=== PATIENT | male | born 1950 | race Caucasian/White ===

== ENCOUNTER 2017-03-16 15:58 | Inpatient (IN) | payer BC, MEDICARE ==
[~2017-03-16 15:58] MED LIST: DEXTROSE 50%-WATER 50 ML SYRINGE IVP ONE; EPINEPHrine 10 ML SYRINGE (0.1 MG/ML) ONE; NOREPINEPHRINE 4 MG-0.9% NS PMX 250 ML IV ONE; SODIUM BICARB 8.4% 50 ML SYR (1 MEQ/ML) ONE
[2017-03-16] MEDS ORDERED: SODIUM CHLORIDE 0.9% 500 ML IV STA (16:14)
[2017-03-16 16:23] LABS: Glucose,Whole Blood 397 mg/dL (75-99)
[2017-03-16] MEDS ORDERED: SODIUM CHLORIDE 0.9% 1,000 ML IV ONE ×2 (16:23→20:14)
[2017-03-16 16:46] LABS: VBG PH 7.25 (7.31-7.41)
[2017-03-16 16:52] LABS: Basophils % (A) 0 %; CH 29.9; CHCM 32.4; Eosinophils % (A) 0 %; HDW 2.53; HGB 13.8 gm/dL (13.0-17.5); Immature Gran Flag Marked; Luc # (Auto) 0.13; Luc % (Auto) 2; Lymphocytes # (A) 0.6 k/uL (1.0-4.8); Lymphocytes % (A) 8 %; MCH 29.1 pg (25.0-35.0); MCHC 31.4 g/dL (31.0-37.0); MCV 92.7 fL (80.0-100.0); Monocytes # (A) 0.4 k/uL (0-1.0); Monocytes % (A) 6 %; Neutrophils # (A) 6.4 k/uL (1.3-7.7); Neutrophils % (A) 85 %; RBC 4.74 m/uL (4.30-5.90); RDW 14.6 % (11.5-15.5); WBC 7.5 k/uL (3.8-10.6); WBC (Perox) 7.59
[2017-03-16 16:55] LABS: Prothrombin Time 10.4 sec (9.0-12.0)
[2017-03-16 16:56] LABS: Calcium 9.2 mg/dL (8.4-10.2); Magnesium 1.8 mg/dL (1.6-2.3); Potassium 5.4 mmol/L (3.5-5.1); Total Bilirubin 0.7 mg/dL (0.2-1.3); Total Protein 5.5 g/dL (6.3-8.2)
[2017-03-16 17:12] LABS: Partial Thromboplastin Time 22.1 sec (22.0-30.0)
[2017-03-16 17:14] LABS: Manual Review Performed
[2017-03-16 17:15] LABS: RBC Morphology Normal; Toxic Granulation Present
[2017-03-16 17:39] LABS: Creatine Kinase MB 2.9 ng/mL (0.0-2.4); Troponin I 0.59 ng/mL (0.000-0.034)
[2017-03-16] MEDS ORDERED: SODIUM CHLORIDE 0.9% 2,000 ML IV ONE (17:42)
--- NOTE | 2017-03-16 17:44 | XR ---
EXAMINATION TYPE: XR abdomen complete w decub DATE OF EXAM: 03/16/2017 COMPARISON: 10/26/2011 HISTORY: Abdominal pain TECHNIQUE: Supine, upright, and left side down lateral decubitus views of the abdomen are obtained. FINDINGS: There is evidence of a moderate sized pneumoperitoneum. I see no sign of bowel obstruction. There are no pathologic calcic indications over the kidneys. There is linear infiltrate and atelectasis at the left lung base. IMPRESSION: There is very likely a pneumoperitoneum. This exam was discussed with the emergency room doctor at 5: 45 PM.
--- NOTE | 2017-03-16 17:46 | XR ---
EXAMINATION TYPE: XR chest 2V DATE OF EXAM: 03/16/2017 COMPARISON: 06/03/2016 HISTORY: Weakness TECHNIQUE: Frontal and lateral views of the chest are obtained. FINDINGS: There appears to be a large amount of air under the right hemidiaphragm. There is linear d ensity at the left lung base. There is no heart failure. IMPRESSION: Pneumoperitoneum. Left basilar atelectasis. No heart failure seen. There is clearing of pleural fluid and infiltrate in the right lower lobe compared to old exam.
--- NOTE | 2017-03-16 18:58 | CT ---
EXAMINATION TYPE: CT abdomen pelvis wo con DATE OF EXAM: 03/16/2017 COMPARISON: NONE HISTORY: Abdominal pain. CT DLP: 680.0 mGycm Automated exposure control for dose reduction was used. TECHNIQUE: Helical acquisition of images was performed from the lung bases through the pelvis. FINDINGS: There is patchy atelectasis at the lung bases. There is small bilateral pleural effusion. There is free air in the anterior upper abdomen. There is fluid level with ascites fluid in the abdom en. There is fluid seen around the spleen and in the paracolic gutters. Liver shows no focal defect. There is no sign of a pancreatic mass. Gallbladder appears to have a mar kedly thickened wall consistent with edema. There is no adrenal mass. There is a 2 cm calculus at the right renal pelvis. There is no hydronephro sis. There is no sign of a bowel obstruction. Bladder distends smoothly. There is no retroperitoneal adeno robert. I see no bony destructive process. IMPRESSION: THERE IS A LARGE PNEUMOPERITONEUM AND ALSO A LARGE AMOUNT OF ASCITES FLUID IN THE ABDOMEN. SOURCE OF THE AIR IS NOT CLEAR. LARGE NONOBSTRUCTING RIGHT RENAL CALCULUS. POSSIBLE MARKEDLY THICKENED GALLBLADDER WALL THAT RAISES THE POSSIBILITY OF A GANGRENOUS GALLBLADDER.
[2017-03-16] MEDS ORDERED: PIPERACILLIN-TAZOBACTAM 3.375 GM in DEXTROSE/WATER 1 50ML.BAG IVPB STA (18:59)
[2017-03-16] MEDS ORDERED: 0.9% NACL WITH KCL 20 MEQ/L 1,000 ML IV SCH ×2 (19:00→19:15)
[2017-03-16] MEDS ORDERED: INSULIN REGULAR 100 UNIT/ML VIAL IV ONE (19:12)
[2017-03-16 19:22] LABS: Amorphous Sediment,Urine Occasional /hpf; Appearance,Urine Cloudy (Clear); Bilirubin,Urine Negative (Negative); Glucose,Urine (UA) 1+ (Negative); Ketones,Urine Negative (Negative); Leukocyte Esterase,Urine Negative (Negative); Nitrite,Urine Negative (Negative); Particle Count 25348; Protein,Urine 1+ (Negative); RBC,Urine 15 /hpf (0-5); Specific Gravity,Urine 1.017 (1.001-1.035); UA Billing (MACRO vs. MICRO) MICRO; Urobilinogen,Urine <2.0 mg/dL (<2.0); WBC,Urine 4 /hpf (0-5)
--- NOTE | 2017-03-16 19:24 | ED ---
General Adult HPI - General Chief complaint: Weakness Stated complaint: weakness/abdominal pain Time Seen by Provider: 03/16/17 16:12 Source: patient, family, RN notes reviewed Mode of arrival: wheelchair Limitations: no limitations - History of Present Illness Initial comments: 66-year-old male presents with chief complaint of generalized weakness abdominal pain. Patient has been taking stool softeners without relief. Patient has history diabetes. He states he has had abdominal pain for approximately the past week. He's been constipated with last normal bowel movement was this morning. Patient describes it is soft. No history of diarrhea. No history nausea vomiting or diarrhea. Patient denies fever or chills. Denies chest pain or shortness of breath. - Related Data Home Medications Medication Instructions Recorded Confirmed Ferrous Sulfate [Iron (65 MG 325 mg PO QAM 05/13/16 03/16/17 Elemental)] Lactobacillus Acidophilus 1 tab PO BID 05/19/16 03/16/17 [Acidophilus] Omeprazole 20 mg PO DAILY 05/29/16 03/16/17 Furosemide [Lasix] 20 mg PO DAILY@1200 07/29/16 03/16/17 Furosemide [Lasix] 40 mg PO DAILY@0600 07/29/16 03/16/17 Carvedilol [Coreg] 6.25 mg PO BID@0900,1700 03/16/17 03/16/17 Eviredge 150 mg PO HS 03/16/17 03/16/17 HYDROcodone/APAP 5-325MG [[place] 1 tab PO Q6H PRN 03/16/17 03/16/17 5-325] Insulin Aspart [NovoLOG Flexpen] 6 units SQ AC-TID 03/16/17 03/16/17 Insulin Glargine,Hum.rec.anlog 8 unit SQ HS 03/16/17 03/16/17 [Basaglar Kwikpen U-100] hydrALAZINE HCL [Apresoline] 25 mg PO TID@0900,1300,1700 03/16/17 03/16/17 Previous Rx's Medication Instructions Recorded Aspirin EC [Ecotrin Low Dose] 81 mg PO DAILY #1 tablet. 05/20/16 Folic Acid 1 mg PO DAILY #1 tablet 05/20/16 Multivitamins, Thera [Multivitamin 1 tab PO DAILY #1 tablet 05/20/16 (formulary)] Thiamine [Vitamin B-1] 100 mg PO DAILY #1 tablet 05/20/16 ALPRAZolam [Xanax] 0.25 mg PO Q8H PRN #20 tab 06/03/16 Isosorbide Mononitrate ER [Imdur] 30 mg PO DAILY tab.er.24h 06/03/16 Allergies Allergy/AdvReac Type Severity Reaction Status Date / Time No Known Allergies Allergy Verified 03/16/17 17:03 Review of Systems ROS Statement: Those systems with pertinent positive or pertinent negative responses have been documented in the HPI. ROS Other: All systems not noted in ROS Statement are negative. Past Medical History Past Medical History: Diabetes Mellitus, Eye Disorder Additional Past Medical History / Comment(s): Congestion heart failure suspected , diabetes mellitus, severe peripheral vascular disease with gangrenous right lower extremity status post below-knee amputation on the right and left toe amputation involving the third fourth and fifth toe, obesity, diabetic peripheral neuropathy, diabetic retinopathy with history of a Detached retina, diabetic nephropathy with stage II chronic kidney disease, diabetic peripheral neuropathy, GERD reflux, chronic anemia History of Any Multi-Drug Resistant Organisms: MRSA, VRE Date of last positivie culture/infection: 07/22/16 MDRO Source:: RIGHT LEG Additional Past Surgical History / Comment(s): Left toe amputation 3, 4, 5, retinal surgery. Right foot amputation Past Anesthesia/Blood Transfusion Reactions: No Reported Reaction Past Psychological History: No Psychological Hx Reported Smoking Status: Never smoker Past Alcohol Use History: None Reported Past Drug Use History: None Reported - Past Family History Mother Family Medical History: Diabetes Mellitus Father Family Medical History: Congestive Heart Failure (CHF) Brother(s) Family Medical History: No Reported History General Exam Limitations: no limitations General appearance: alert, lethargic, in distress Head exam: Present: atraumatic, normocephalic Eye exam: Present: normal appearance. Absent: scleral icterus, conjunctival injection ENT exam: Present: mucous membranes dry Neck exam: Present: normal inspection. Absent: tenderness, meningismus Respiratory exam: Present: normal lung sounds bilaterally. Absent: respiratory distress Cardiovascular Exam: Present: normal rhythm, tachycardia GI/Abdominal exam: Present: distended, tenderness, guarding, diminished bowel sounds. Absent: rigid Extremities exam: Present: other (Right BKA). Absent: normal capillary refill, pedal edema Neurological exam: Present: alert. Absent: motor sensory deficit Psychiatric exam: Present: normal affect, normal mood Skin exam: Present: diaphoretic. Absent: warm Course Vital Signs 03/16/17 03/16/17 03/16/17 16:05 16:43 16:46 Temperature 97.4 F L 97.8 F Pulse Rate 128 H 120 H Pulse Rate [ 120 H Apical] Respiratory 20 38 H Rate Blood Pressure 82/53 95/63 O2 Sat by Pulse 96 97 Oximetry 03/16/17 03/16/17 03/16/17 17:27 18:21 19:11 Temperature 97.4 F L 97.8 F Pulse Rate 118 H 114 H 112 H Pulse Rate [ Apical] Respiratory 36 H 28 H 28 H Rate Blood Pressure 116/62 140/72 134/66 O2 Sat by Pulse 98 100 98 Oximetry - Reevaluation(s) Reevaluation #1: 03/16/17 19:19 Patient's blood pressure response to IV hydration. Patient does not request pain medication, abdomen is only painful with palpation EKG Findings - EKG Comments: EKG Findings:: EKG shows sinus tachycardia with a ventricular rate of 123, FL interval 152, QRS duration 96, QTC 458, no signs of acute ischemia Medical Decision Making - Medical Decision Making 66-year-old male presented with generalized weakness, and abdominal pain. Patient had a normal bowel movement this morning. On examination patient is tachycardic, hypotensive, tach. Lungs are clear to auscultation. Patient does have generalized abdominal tenderness to palpation with guarding. Abdomen is not rigid. Initial blood sugar is elevated. Patient is started on IV hydration , laboratory studies do reveal significant abnormalities including lactic acidosis 5.5, elevated blood sugar, CO2 of 9 representing severe acidosis, acute kidney injury with a creatinine of 5.9, unknown baseline. Chest x-ray shows no acute findings, abdominal x-ray is suggestive of intraperitoneal free air, however the radiologist's requests either upright chest or CT to confirm. Noncontrast CT is obtained and is significant for a large amount of intraperitoneal air and free fluid. Case is discussed with general surgery both after initial x-ray and CAT scan. Patient is started on IV antibiotics, continued on IV hydration, given IV insulin for his hyperglycemia and hyperkalemia. Patient is informed of these results along with his family. Patient will be taken to the operating room emergently for exploration. Diagnosis: Intraperitoneal free air, lactic acidosis, metabolic acidosis, DKA. - Lab Data Result diagrams: 03/16/17 16:30 03/16/17 16:30 Lab Results 03/16/17 03/16/17 03/16/17 Range/Units 16:19 16:30 16:30 WBC 7.5 (3.8-10.6) k/uL RBC 4.74 (4.30-5.90) m/uL Hgb 13.8 (13.0-17.5) gm/dL Hct 44.0 (39.0-53.0) % MCV 92.7 (80.0-100.0) fL MCH 29.1 (25.0-35.0) pg MCHC 31.4 (31.0-37.0) g/dL RDW 14.6 (11.5-15.5) % Plt Count 238 (150-450) k/uL Neutrophils % 85 % Lymphocytes % 8 % Monocytes % 6 % Eosinophils % 0 % Basophils % 0 % Neutrophils # 6.4 (1.3-7.7) k/uL Lymphocytes # 0.6 L (1.0-4.8) k/uL Monocytes # 0.4 (0-1.0) k/uL Eosinophils # 0.0 (0-0.7) k/uL Basophils # 0.0 (0-0.2) k/uL Manual Slide Review Performed Toxic Granulation Present RBC Morphology Normal PT (9.0-12.0) sec INR (<1.2) APTT (22.0-30.0) sec VBG pH (7.31-7.41) VBG pCO2 (37-51) mmHg VBG HCO3 (24-28) mmol/L Sodium (137-145) mmol/L Potassium (3.5-5.1) mmol/L Chloride (98-107) mmol/L Carbon Dioxide (22-30) mmol/L Anion Gap mmol/L BUN (9-20) mg/dL Creatinine (0.66-1.25) mg/dL Est GFR (MDRD) Af Amer (>60 ml/min/1.73 sqM) Est GFR (MDRD) Non-Af (>60 ml/min/1.73 sqM) Glucose (74-99) mg/dL POC Glucose (mg/dL) 397 H (75-99) mg/dL POC Glu Production Team Leader ID Amy Ramirez Plasma Lactic Acid Mario (0.7-2.0) mmol/L Calcium (8.4-10.2) mg/dL Magnesium (1.6-2.3) mg/dL Total Bilirubin (0.2-1.3) mg/dL AST (17-59) U/L ALT (21-72) U/L Alkaline Phosphatase (38-126) U/L Total Creatine Kinase 216 H (55-170) U/L CK-MB (CK-2) 2.9 H* (0.0-2.4) ng/mL CK-MB (CK-2) Rel Index 1.3 Troponin I 0.590 H* (0.000-0.034) ng/mL Total Protein (6.3-8.2) g/dL Albumin (3.5-5.0) g/dL TSH (0.465-4.680) mIU/L Blood Type Blood Type Recheck Antibody Screen Spec Expiration Date 03/16/17 03/16/17 03/16/17 Range/Units 16:30 16:30 16:30 WBC (3.8-10.6) k/uL RBC (4.30-5.90) m/uL Hgb (13.0-17.5) gm/dL Hct (39.0-53.0) % MCV (80.0-100.0) fL MCH (25.0-35.0) pg MCHC (31.0-37.0) g/dL RDW (11.5-15.5) % Plt Count (150-450) k/uL Neutrophils % % Lymphocytes % % Monocytes % % Eosinophils % % Basophils % % Neutrophils # (1.3-7.7) k/uL Lymphocytes # (1.0-4.8) k/uL Monocytes # (0-1.0) k/uL Eosinophils # (0-0.7) k/uL Basophils # (0-0.2) k/uL Manual Slide Review Toxic Granulation RBC Morphology PT 10.4 (9.0-12.0) sec INR 1.0 (<1.2) APTT 22.1 (22.0-30.0) sec VBG pH (7.31-7.41) VBG pCO2 (37-51) mmHg VBG HCO3 (24-28) mmol/L Sodium 132 L (137-145) mmol/L Potassium 5.4 H (3.5-5.1) mmol/L Chloride 101 (98-107) mmol/L Carbon Dioxide 9 L* (22-30) mmol/L Anion Gap 22 mmol/L BUN 108 H* (9-20) mg/dL Creatinine 5.90 H* (0.66-1.25) mg/dL Est GFR (MDRD) Af Amer 12 (>60 ml/min/1.73 sqM) Est GFR (MDRD) Non-Af 10 (>60 ml/min/1.73 sqM) Glucose 496 H* (74-99) mg/dL POC Glucose (mg/dL) (75-99) mg/dL POC Glu Production Team Leader ID Plasma Lactic Acid Mario 5.4 H* (0.7-2.0) mmol/L Calcium 9.2 (8.4-10.2) mg/dL Magnesium 1.8 (1.6-2.3) mg/dL Total Bilirubin 0.7 (0.2-1.3) mg/dL AST 25 (17-59) U/L ALT 33 (21-72) U/L Alkaline Phosphatase 54 (38-126) U/L Total Creatine Kinase (55-170) U/L CK-MB (CK-2) (0.0-2.4) ng/mL CK-MB (CK-2) Rel Index Troponin I (0.000-0.034) ng/mL Total Protein 5.5 L (6.3-8.2) g/dL Albumin 2.9 L (3.5-5.0) g/dL TSH 0.672 (0.465-4.680) mIU/L Blood Type Blood Type Recheck Antibody Screen Spec Expiration Date 03/16/17 03/16/17 Range/Units 16:30 16:30 WBC (3.8-10.6) k/uL RBC (4.30-5.90) m/uL Hgb (13.0-17.5) gm/dL Hct (39.0-53.0) % MCV (80.0-100.0) fL MCH (25.0-35.0) pg MCHC (31.0-37.0) g/dL RDW (11.5-15.5) % Plt Count (150-450) k/uL Neutrophils % % Lymphocytes % % Monocytes % % Eosinophils % % Basophils % % Neutrophils # (1.3-7.7) k/uL Lymphocytes # (1.0-4.8) k/uL Monocytes # (0-1.0) k/uL Eosinophils # (0-0.7) k/uL Basophils # (0-0.2) k/uL Manual Slide Review Toxic Granulation RBC Morphology PT (9.0-12.0) sec INR (<1.2) APTT (22.0-30.0) sec VBG pH 7.25 L (7.31-7.41) VBG pCO2 29 L (37-51) mmHg VBG HCO3 12 L (24-28) mmol/L Sodium (137-145) mmol/L Potassium (3.5-5.1) mmol/L Chloride (98-107) mmol/L Carbon Dioxide (22-30) mmol/L Anion Gap mmol/L BUN (9-20) mg/dL Creatinine (0.66-1.25) mg/dL Est GFR (MDRD) Af Amer (>60 ml/min/1.73 sqM) Est GFR (MDRD) Non-Af (>60 ml/min/1.73 sqM) Glucose (74-99) mg/dL POC Glucose (mg/dL) (75-99) mg/dL POC Glu Production Team Leader ID Plasma Lactic Acid Mario (0.7-2.0) mmol/L Calcium (8.4-10.2) mg/dL Magnesium (1.6-2.3) mg/dL Total Bilirubin (0.2-1.3) mg/dL AST (17-59) U/L ALT (21-72) U/L Alkaline Phosphatase (38-126) U/L Total Creatine Kinase (55-170) U/L CK-MB (CK-2) (0.0-2.4) ng/mL CK-MB (CK-2) Rel Index Troponin I (0.000-0.034) ng/mL Total Protein (6.3-8.2) g/dL Albumin (3.5-5.0) g/dL TSH (0.465-4.680) mIU/L Blood Type A Positive Blood Type Recheck No Antibody Screen NEGATIVE Spec Expiration Date 03/19/2017 - 2329 Critical Care Time Critical Care Time: Yes Total Critical Care Time: 95 Disposition Clinical Impression: Free intraperitoneal air, Dehydration, Acute renal failure, Diabetic ketoacidosis Disposition: ADMITTED IP TO THIS [facility] Condition: Serious Referrals: Marjorie Suero DO [Primary Care Provider] - 1-2 days Decision to Admit Reason: Admit from EC Decision Date: 03/16/17 Decision Time: 18:30
[2017-03-16] MEDS ORDERED: IV FLUID CONTINUATION 1,000 ML IV ONE (19:47)
[2017-03-16] MEDS ORDERED: fentaNYL (PF) 50 MCG/ML 2 ML AMP ONE (19:47)
[2017-03-16] MEDS ORDERED: ETOMIDATE 2 MG/ML 10 ML VIAL ONE (19:47)
[2017-03-16] MEDS ORDERED: PHENYLEPHRINE-0.9% NACL SYG 1 MG/10 ML SYRINGE ONE (19:47)
[2017-03-16] MEDS ORDERED: SODIUM BICARB 8.4% 50 ML SYR (1 MEQ/ML) ONE (19:47)
[2017-03-16] MEDS ORDERED: MIDAZOLAM 2 MG/2 ML VIAL ONE (19:47)
[2017-03-16] MEDS ORDERED: ROCURONIUM BROMIDE 10 MG/ML 10 ML VIAL IV ONE (19:47)
--- NOTE | 2017-03-16 19:51 | P.GSHP ---
History of Present Illness H&P Date: 03/16/17 Chief Complaint: Pneumoperitoneum Patient comes in the hospital with a 3-4 history of vague abdominal pain. The pain has been gradually increasing in severity. The patient's was trying to convince him to come to the hospital but he was refusing up until today. Some nausea but no vomiting. Appetite is diminished. No rectal bleeding or melena. No history of similar events in the past. Pain is vague in location seems to be more centralized. No sick contacts. He has been constipated although did have a bowel movement earlier today. He is taking some medications for a skin cancer and was told that may upset his stomach. No known history of ulcer disease or diverticulitis. No prior upper or lower endoscopy. The patient is diabetic with peripheral vascular disease. He has had right below-knee amputation and left toe amputations. Abdominal x-ray suggested possible pneumoperitoneum and CAT scan confirmed a large volume of free air. The gallbladder appears thickened. The majority of the free air is in the upper abdomen. His white blood cell count is normal. He is acidotic and there is evidence of acute renal failure. Lactic acid is elevated as well. Patient's blood pressure was low on arrival but is improving. - Review of Systems Comment: The patient denies any acute changes in vision or hearing, no dysphagia or odynophagia, no chest pain or shortness of breath, no dysuria or hematuria, no headache, no runny nose, no rectal bleeding or melena, no unexplained weight loss Past Medical History Past Medical History: Diabetes Mellitus, Eye Disorder Additional Past Medical History / Comment(s): Congestion heart failure suspected , diabetes mellitus, severe peripheral vascular disease with gangrenous right lower extremity status post below-knee amputation on the right and left toe amputation involving the third fourth and fifth toe, obesity, diabetic peripheral neuropathy, diabetic retinopathy with history of a Detached retina, diabetic nephropathy with stage II chronic kidney disease, diabetic peripheral neuropathy, GERD reflux, chronic anemia History of Any Multi-Drug Resistant Organisms: MRSA, VRE Date of last positivie culture/infection: 07/22/16 MDRO Source:: RIGHT LEG Additional Past Surgical History / Comment(s): Left toe amputation 3, 4, 5, retinal surgery. Right foot amputation Past Anesthesia/Blood Transfusion Reactions: No Reported Reaction Past Psychological History: No Psychological Hx Reported Smoking Status: Never smoker Past Alcohol Use History: None Reported Past Drug Use History: None Reported - Past Family History Mother Family Medical History: Diabetes Mellitus Father Family Medical History: Congestive Heart Failure (CHF) Brother(s) Family Medical History: No Reported History Medications and Allergies Home Medications Medication Instructions Recorded Confirmed Type Ferrous Sulfate [Iron (65 MG 325 mg PO QAM 05/13/16 03/16/17 History Elemental)] Lactobacillus Acidophilus 1 tab PO BID 05/19/16 03/16/17 History [Acidophilus] Omeprazole 20 mg PO DAILY 05/29/16 03/16/17 History Furosemide [Lasix] 20 mg PO DAILY@1200 07/29/16 03/16/17 History Furosemide [Lasix] 40 mg PO DAILY@0600 07/29/16 03/16/17 History Carvedilol [Coreg] 6.25 mg PO BID@0900,1700 03/16/17 03/16/17 History Eviredge 150 mg PO HS 03/16/17 03/16/17 History HYDROcodone/APAP 5-325MG [[place] 1 tab PO Q6H PRN 03/16/17 03/16/17 History 5-325] Insulin Aspart [NovoLOG Flexpen] 6 units SQ AC-TID 03/16/17 03/16/17 History Insulin Glargine,Hum.rec.anlog 8 unit SQ 03/16/17 03/16/17 History [Basaglar Kwikpen U-100] hydrALAZINE HCL [Apresoline] 25 mg PO TID@0900,1300,1700 03/16/17 03/16/17 History Allergies Allergy/AdvReac Type Severity Reaction Status Date / Time No Known Allergies Allergy Verified 03/16/17 17:03 Surgical - Exam Vital Signs Temp Pulse Resp BP Pulse Ox 97.4 F L 128 H 20 82/53 96 03/16/17 16:05 03/16/17 16:05 03/16/17 16:05 03/16/17 16:05 03/16/17 16:05 Physical exam: General: Well-developed, well-nourished elderly male in no acute distress HEENT: Normocephalic, sclerae nonicteric Abdomen: Mildly distended, diffuse tenderness with peritoneal signs present Extremities: Right lower limb amputation Neuro: Alert and oriented Results - Labs 03/16/17 16:30 03/16/17 16:30 Abnormal Lab Results - Last 24 Hours (Table) 03/16/17 03/16/17 03/16/17 Range/Units 16:19 16:30 16:30 Lymphocytes # 0.6 L (1.0-4.8) k/uL VBG pH (7.31-7.41) VBG pCO2 (37-51) mmHg VBG HCO3 (24-28) mmol/L Sodium (137-145) mmol/L Potassium (3.5-5.1) mmol/L Carbon Dioxide (22-30) mmol/L BUN (9-20) mg/dL Creatinine (0.66-1.25) mg/dL Glucose (74-99) mg/dL POC Glucose (mg/dL) 397 H (75-99) mg/dL Plasma Lactic Acid Mario (0.7-2.0) mmol/L Total Creatine Kinase 216 H (55-170) U/L CK-MB (CK-2) 2.9 H* (0.0-2.4) ng/mL Troponin I 0.590 H* (0.000-0.034) ng/mL Total Protein (6.3-8.2) g/dL Albumin (3.5-5.0) g/dL Urine Protein (Negative) Urine Glucose (UA) (Negative) Urine Blood (Negative) Urine RBC (0-5) /hpf Amorphous Sediment (None) /hpf Hyaline Casts (0-2) /lpf 03/16/17 03/16/17 03/16/17 Range/Units 16:30 16:30 16:30 Lymphocytes # (1.0-4.8) k/uL VBG pH 7.25 L (7.31-7.41) VBG pCO2 29 L (37-51) mmHg VBG HCO3 12 L (24-28) mmol/L Sodium 132 L (137-145) mmol/L Potassium 5.4 H (3.5-5.1) mmol/L Carbon Dioxide 9 L* (22-30) mmol/L BUN 108 H* (9-20) mg/dL Creatinine 5.90 H* (0.66-1.25) mg/dL Glucose 496 H* (74-99) mg/dL POC Glucose (mg/dL) (75-99) mg/dL Plasma Lactic Acid Mario 5.4 H* (0.7-2.0) mmol/L Total Creatine Kinase (55-170) U/L CK-MB (CK-2) (0.0-2.4) ng/mL Troponin I (0.000-0.034) ng/mL Total Protein 5.5 L (6.3-8.2) g/dL Albumin 2.9 L (3.5-5.0) g/dL Urine Protein (Negative) Urine Glucose (UA) (Negative) Urine Blood (Negative) Urine RBC (0-5) /hpf Amorphous Sediment (None) /hpf Hyaline Casts (0-2) /lpf 03/16/17 Range/Units 19:00 Lymphocytes # (1.0-4.8) k/uL VBG pH (7.31-7.41) VBG pCO2 (37-51) mmHg VBG HCO3 (24-28) mmol/L Sodium (137-145) mmol/L Potassium (3.5-5.1) mmol/L Carbon Dioxide (22-30) mmol/L BUN (9-20) mg/dL Creatinine (0.66-1.25) mg/dL Glucose (74-99) mg/dL POC Glucose (mg/dL) (75-99) mg/dL Plasma Lactic Acid Mario (0.7-2.0) mmol/L Total Creatine Kinase (55-170) U/L CK-MB (CK-2) (0.0-2.4) ng/mL Troponin I (0.000-0.034) ng/mL Total Protein (6.3-8.2) g/dL Albumin (3.5-5.0) g/dL Urine Protein 1+ H (Negative) Urine Glucose (UA) 1+ H (Negative) Urine Blood Trace H (Negative) Urine RBC 15 H (0-5) /hpf Amorphous Sediment Occasional H (None) /hpf Hyaline Casts 110 H (0-2) /lpf Diabetes panel 03/16/17 Range/Units 16:30 Sodium 132 L (137-145) mmol/L Potassium 5.4 H (3.5-5.1) mmol/L Chloride 101 (98-107) mmol/L Carbon Dioxide 9 L* (22-30) mmol/L BUN 108 H* (9-20) mg/dL Creatinine 5.90 H* (0.66-1.25) mg/dL Glucose 496 H* (74-99) mg/dL Calcium 9.2 (8.4-10.2) mg/dL AST 25 (17-59) U/L ALT 33 (21-72) U/L Alkaline Phosphatase 54 (38-126) U/L Total Protein 5.5 L (6.3-8.2) g/dL Albumin 2.9 L (3.5-5.0) g/dL Thyroid panel 03/16/17 Range/Units 16:30 TSH 0.672 (0.465-4.680) mIU/L Calcium panel 03/16/17 Range/Units 16:30 Calcium 9.2 (8.4-10.2) mg/dL Albumin 2.9 L (3.5-5.0) g/dL Pituitary panel 03/16/17 Range/Units 16:30 Sodium 132 L (137-145) mmol/L Potassium 5.4 H (3.5-5.1) mmol/L Chloride 101 (98-107) mmol/L Carbon Dioxide 9 L* (22-30) mmol/L BUN 108 H* (9-20) mg/dL Creatinine 5.90 H* (0.66-1.25) mg/dL Glucose 496 H* (74-99) mg/dL Calcium 9.2 (8.4-10.2) mg/dL TSH 0.672 (0.465-4.680) mIU/L Adrenal panel 03/16/17 Range/Units 16:30 Sodium 132 L (137-145) mmol/L Potassium 5.4 H (3.5-5.1) mmol/L Chloride 101 (98-107) mmol/L Carbon Dioxide 9 L* (22-30) mmol/L BUN 108 H* (9-20) mg/dL Creatinine 5.90 H* (0.66-1.25) mg/dL Glucose 496 H* (74-99) mg/dL Calcium 9.2 (8.4-10.2) mg/dL Total Bilirubin 0.7 (0.2-1.3) mg/dL AST 25 (17-59) U/L ALT 33 (21-72) U/L Alkaline Phosphatase 54 (38-126) U/L Total Protein 5.5 L (6.3-8.2) g/dL Albumin 2.9 L (3.5-5.0) g/dL Assessment and Plan (1) Free intraperitoneal air Narrative/Plan: Clinical scenario discussed in detail with the patient and his family. Perforated peptic ulcer is the most likely etiology at this time. Plan to proceed with a exporter laparotomy was discussed. Potential need for bowel resection and/or ostomy was discussed. Additional risks of bleeding, infection , abscess, reperforation, hernia, dehiscence, ostomy placement, respiratory failure, [place], PE, DVT, and were discussed. They understand and wish to proceed. Status: Acute
[2017-03-16] MEDS ORDERED: LACTATED RINGERS 1,000 ML IV ONE ×3 (19:53→22:03)
[2017-03-16] MEDS ORDERED: SODIUM CHLORIDE 0.9% 500 ML IV ONE (21:00)
[2017-03-16 21:26] LABS: ABG Base Excess -13.5 mmol/L; ABG HCO3 13 mmol/L (21-25); ABG Hematocrit 29 % (34.0-46.0); ABG Oxygen Saturation 99.4 % (94-97); ABG PCO2 36 mmHg (35-45); ABG PO2 355 mmHg (83-108)
[2017-03-16 21:27] LABS: ABG PH 7.19 (7.35-7.45)
[2017-03-16] MEDS ORDERED: NALOXONE 0.4 MG/ML 1 ML VIAL IV PRN (22:03)
[2017-03-16] MEDS ORDERED: ACETAMINOPHEN IV (For NPO) 1,000 MG in EMPTY BAG 1 BAG IVPB ONE (22:03)
[2017-03-16] MEDS ORDERED: NOREPINEPHRIN 4 MG-0.9% NS PMX 4 MG/250 ML ML IV SCH (22:10)
--- NOTE | 2017-03-16 22:13 | P.OP ---
Date of Procedure: 03/16/17 Preoperative Diagnosis: Postoperative Diagnosis: Procedure(s) Performed: PREOPERATIVE DIAGNOSIS: Pneumoperitoneum POSTOPERATIVE DIAGNOSIS: Pneumoperitoneum secondary to perforated peptic ulcer with chronic cholecystitis PROCEDURE: Exploratory laparotomy with repair of perforated peptic ulcer with modified Don patch, open cholecystectomy SURGEON: Inez EBL: 50 mL ANESTHESIA: Gen. COMPLICATIONS: None OPERATIVE PROCEDURE: The patient was placed in the operative table in supine position. Preoperative right IJ catheter and right radial art line were placed by anesthesia. The patient already had a Castellanos catheter. Later a nasogastric tube was placed in the positioning was confirmed. The patient abdomen was prepped and draped in the usual sterile fashion. A supraumbilical vertical incision was made. Dissection through the subcutaneous fat and fascia took place using electrocautery. The patient a large volume of purulent fluid scattered throughout the entire abdomen. This had a very foul odor to it. Initially I thought this may be related to a perforated colon. The incision was lengthened slightly inferiorly. No visible colonic perforation was seen. Incision was then lengthened proximally. The patient at that time had a visible perforated ulcer measuring proximally 7-8 mm in diameter in the region of the pylorus. This was oversewn using interrupted 3-0 silk sutures to control spill. What was quite noticeable was a gallbladder that was completely filled with a gigantic gallstone. This measured approximately 10 x 4 cm in size. I decided to remove this gallbladder at this time given the challenges this would present in the future. Careful dissection around the gallbladder took place using a combination of blunt dissection and cautery. The cystic duct node was identified in the adjacent cystic artery was identified and clipped. The gallbladder was then removed from the liver bed using electrocautery. As we approached the infundibulum small vessels were ligated using either 3-0 silk ties or clips. The cystic duct was visualized. The cystic duct was then divided after the placement of a 3-0 silk and a clip on the patient's side. The gallbladder was passed off. A small area of bleeding along the liver bed was controlled using spot cautery. The abdomen was then irrigated with 4 L of saline. No further purulence or bleeding was seen. FloSeal was used over the ulcer closure site. A Don patch then took place by securing a portion of fat around the ulcer closure site. A drain was placed in the right upper quadrant into the gallbladder fossa and beneath the left lobe of the liver. This was sutured to the skin using a 3-0 silk stitch. The midline fascia was then closed using 2 separate #1 PDS sutures. The skin was mostly closed using clips however small gaps were left for Telfa nola. A sterile dressing was applied. DISPOSITION: Stable to recovery room Implants: Indications for Procedure: Operative Findings: Description of Procedure:
[2017-03-16] MEDS ORDERED: PROPOFOL 1,000 MG/100 ML VIAL IV ONE (22:14)
[2017-03-16] MEDS ORDERED: NOREPINEPHRIN 4 MG-0.9% NS PMX 4 MG/250 ML ML IV ONE (22:15)
[2017-03-16] MEDS: PROPOFOL 1,000 MG/100 ML VIAL IV SCH (22:20)
[2017-03-16 23:04] LABS: Glucose,Whole Blood 283 mg/dL (75-99)
[2017-03-16 23:09] LABS: ABG Base Excess -13.8 mmol/L; ABG HCO3 14 mmol/L (21-25); ABG PCO2 41 mmHg (35-45); ABG PH 7.14 (7.35-7.45); ABG PO2 332 mmHg (83-108); ABG TCO2 15 mmol/L (19-24)
[2017-03-16 23:23] LABS: CH 29.7; CHCM 32.1; HDW 2.54; HGB 11.9 gm/dL (13.0-17.5); Immature Gran Flag Marked; MCH 29.2 pg (25.0-35.0); MCHC 31.3 g/dL (31.0-37.0); MCV 93.2 fL (80.0-100.0); Mean Platelet Volume 9.5; RBC 4.08 m/uL (4.30-5.90); RDW 14.8 % (11.5-15.5); WBC (Perox) 8.77
[2017-03-16 23:30] LABS: Calcium 7.7 mg/dL (8.4-10.2); Magnesium 1.6 mg/dL (1.6-2.3); Phosphorous 4.9 mg/dL (2.5-4.5); Potassium 4.8 mmol/L (3.5-5.1); Total Bilirubin 0.5 mg/dL (0.2-1.3); Total Protein 4.1 g/dL (6.3-8.2)
[2017-03-16] MEDS ORDERED: NOREPINEPHRIN 16 MG-0.9%NS PMX 16 MG/250 ML ML IV SCH (23:45)
[2017-03-16 23:49] LABS: Add Differential Manual Differential
[2017-03-16 23:51] LABS: Manual Review Performed; Nucleated Red Blood Cells 0 /100 WBC (0-0); Total Cells Counted 100
[2017-03-16] MEDS ORDERED: IPRATROPIUM-ALBUTEROL 3 ML NEB INHALATION PRN (23:54)
[2017-03-16] MEDS ORDERED: ACETAMINOPHEN IV (For NPO) 1,000 MG in EMPTY BAG 1 BAG IVPB PRN (23:54)
[2017-03-17] MEDS ORDERED: Potassium Replacement Protocol 1 EACH MISC MISCELLANE PRN (00:40)
[2017-03-17] MEDS ORDERED: Magnesium Replacement Protocol 1 EACH MISC MISCELLANE PRN (00:40)
[2017-03-17] MEDS ORDERED: Phosphorus Replacement Protoco 1 EACH MISC MISCELLANE PRN (00:40)
[2017-03-17] MEDS: IPRATROPIUM-ALBUTEROL 3 ML NEB INHALATION SCH ×7 (00:55→23:25)
[2017-03-17] MEDS ORDERED: INSULIN LISPRO (humaLOG) 300 UNIT/3 ML VIAL SQ SCH (01:09)
[2017-03-17] MEDS: MAGNESIUM SULFATE-D5W PMX 1 GM in DEXTROSE/WATER 1 100ML.BAG IVPB SCH ×3 (01:14→23:39)
[2017-03-17] MEDS: metroNIDAZOLE-NS PMX 500 MG in SALINE 1 100ML.BAG IVPB SCH ×4 (01:14→23:41)
[2017-03-17 01:48] LABS: Glucose,Whole Blood 274 mg/dL (75-99)
[2017-03-17] MEDS: HEPARIN SODIUM,PORCINE 5,000 UNIT/ML 1 ML VIAL SQ SCH ×4 (02:33→23:41)
[2017-03-17 04:19] LABS: Glucose,Whole Blood 266 mg/dL (75-99)
[2017-03-17 04:32] LABS: CH 29.7; CHCM 32.6; HDW 2.62; HGB 11.7 gm/dL (13.0-17.5); Immature Gran Flag Marked; MCH 29.1 pg (25.0-35.0); MCHC 31.8 g/dL (31.0-37.0); MCV 91.8 fL (80.0-100.0); Mean Platelet Volume 9.5; RBC 4.03 m/uL (4.30-5.90); RDW 14.8 % (11.5-15.5); WBC 9.2 k/uL (3.8-10.6); WBC (Perox) 10.11
[2017-03-17 04:46] LABS: Calcium 7.6 mg/dL (8.4-10.2); Total Bilirubin 0.6 mg/dL (0.2-1.3)
[2017-03-17] MEDS ORDERED: INSULIN REGULAR BOLUS (FROM DRIP BAG) IV ONE (04:49)
[2017-03-17 04:52] LABS: ABG Base Excess -11.6 mmol/L; ABG HCO3 13 mmol/L (21-25); ABG PCO2 27 mmHg (35-45); ABG PH 7.31 (7.35-7.45); ABG PO2 198 mmHg (83-108); ABG TCO2 14 mmol/L (19-24)
[2017-03-17 04:57] LABS: Total Protein 4.1 g/dL (6.3-8.2)
[2017-03-17 04:58] LABS: Magnesium 2.2 mg/dL (1.6-2.3); Phosphorous 4.2 mg/dL (2.5-4.5)
[2017-03-17] MEDS ORDERED: INSULIN REGULAR 100 UNIT in SODIUM CHLORIDE 0.9% 100 ML IV SCH (05:00)
[2017-03-17 05:06] LABS: Add Differential Manual Differential
[2017-03-17 05:08] LABS: Band Neutrophils % 15.2 %; Manual Review Performed; Nucleated Red Blood Cells 0 /100 WBC (0-0); Total Cells Counted 99
[2017-03-17 05:19] LABS: Glucose,Whole Blood 235 mg/dL (75-99)
[2017-03-17] MEDS: SODIUM CHLORIDE 0.9% 1,000 ML IV SCH ×5 (06:00→23:42)
[2017-03-17 06:10] LABS: Glucose,Whole Blood 217 mg/dL (75-99)
[2017-03-17 07:06] LABS: Glucose,Whole Blood 169 mg/dL (75-99)
[2017-03-17 07:59] LABS: Glucose,Whole Blood 152 mg/dL (75-99)
[2017-03-17] MEDS ORDERED: PIPERACILLIN-TAZOBACTAM 3.375 GM in DEXTROSE/WATER 1 50ML.BAG IVPB SCH (08:00)
--- NOTE | 2017-03-17 08:13 | XR ---
EXAMINATION TYPE: XR chest 1V DATE OF EXAM: 03/17/2017 COMPARISON: 03/16/2017 HISTORY: Weakness TECHNIQUE: Single frontal view of the chest is obtained. FINDINGS: Right internal jugular central venous catheter has been inserted in the interim with its d istal tip terminating in the high right atrium. Endotracheal tube has its distal tip approximately 4. 2 cm from the estela. Enteric tube has also been placed in the interim with the fenestrated portion j ust distal to the gastroesophageal junction. Surgical suture noted within the right upper quadrant. There are low lung volumes accentuating pulmonary vasculature and creating bibasilar subsegmental ate lectasis. Remainder the lungs are clear. Mediastinal silhouette is stable from prior and within jose armando l limits. IMPRESSION: 1. Interval placement of appropriately placed enteric and endotracheal tubes. Right internal jugular central venous catheter has been placed with its distal tip in the high right atrium. 2. Bibasilar subsegmental atelectasis.
[2017-03-17] MEDS: CHLORHEXIDINE GLUCONATE 15 ML CUP MUCOUS MEM SCH ×2 (08:14→21:54)
[2017-03-17] MEDS: NOREPINEPHRIN 16 MG-0.9%NS PMX 16 MG/250 ML ML IV SCH ×2 (08:14→22:20)
[2017-03-17] MEDS: PANTOPRAZOLE 40 MG/10 ML VIAL IV SCH ×2 (08:14→21:54)
[2017-03-17] MEDS: FLUCONAZOLE IN NACL,ISO-OSM 100 MG in SALINE 1 50ML.BAG IVPB SCH (08:15)
[2017-03-17 09:07] LABS: Glucose,Whole Blood 147 mg/dL (75-99)
--- NOTE | 2017-03-17 09:33 | P.CONS ---
History of Present Illness - Reason for Consult Consult date: 03/17/17 Abdominal sepsis - History of Present Illness This is a 66-year-old male that is well-known to ID service for previous history of gangrene and amputation of his toes on the left foot as well as a below the knee amputation on the right. [facility] most recently under the care of Dr. Gordon and discharged in August 2016 after a dehiscence of the right below the knee wound healed. Patient presented to [facility] emergency center on March 16 with generalized weakness and abdominal pain for at least couple days up to 1 week with concerns for constipation and was taking laxatives with no improvement. Patient also had decreased appetite and pain was gradually worsening. There was nausea without vomiting. Chest x-ray showed pneumoperitoneum and left basilar atelectasis with no heart failure. Abdominal films also showed pneumoperitoneum. CAT scan of the abdomen and pelvis without contrast and was found have a large pneumoperitoneum, large ascites, large nonobstructive right renal calculi and possible gallbladder thickening with concern for gangrenous gallbladder. Patient was taken to the OR by Dr. Wiley for exploratory laparotomy with repair of perforated peptic ulcer and open cholecystectomy. Patient was then transferred to the intensive care unit where he remains intubated and on mechanical ventilation. Patient presented with severe sepsis and septic shock status post 7 1/2 liters of fluid currently on levo at 20 mics. He did not have a urine output for the day shift thus far. O2 needs have decreased however. He is currently on IV antimicrobials in the form of fluconazole, Flagyl and Zosyn. Blood cultures status received and urine culture status received. C. difficile toxin was negative. Patient is noted to have a stage II decubitus ulcer on his buttocks that was present on admission. Review of Systems ROS unobtainable: due to endotracheal tube Past Medical History Past Medical History: Cancer, Diabetes Mellitus, Eye Disorder, GERD/Reflux Additional Past Medical History / Comment(s): Congestion heart failure suspected , diabetes mellitus, severe peripheral vascular disease with gangrenous right lower extremity status post below-knee (May 2016) amputation on the right and left toe amputation involving the third fourth and fifth toe (2011), obesity, diabetic peripheral neuropathy, diabetic retinopathy with history of a Detached retina, diabetic nephropathy with stage II chronic kidney disease, diabetic peripheral neuropathy, GERD reflux, chronic anemia History of Any Multi-Drug Resistant Organisms: MRSA, VRE Year Discovered:: 07/22/16 MDRO Source:: RIGHT LEG Past Surgical History: Cholecystectomy Additional Past Surgical History / Comment(s): Left toe amputations 3, 4, 5, retinal surgery. Right BKA; Skin cancer removed: back of neck, upper back, Past Anesthesia/Blood Transfusion Reactions: No Reported Reaction Past Psychological History: No Psychological Hx Reported Smoking Status: Never smoker Past Alcohol Use History: None Reported Additional Past Alcohol Use History / Comment(s): . Past Drug Use History: None Reported - Past Family History Mother Family Medical History: Diabetes Mellitus, Renal Disease Father Family Medical History: Congestive Heart Failure (CHF) Brother(s) Family Medical History: No Reported History Sister(s) Family Medical History: No Reported History Medications and Allergies Home Medications Medication Instructions Recorded Confirmed Type Ferrous Sulfate [Iron (65 MG 325 mg PO QAM 05/13/16 03/16/17 History Elemental)] Lactobacillus Acidophilus 1 tab PO BID 05/19/16 03/16/17 History [Acidophilus] Omeprazole 20 mg PO DAILY 05/29/16 03/17/17 History Furosemide [Lasix] 20 mg PO DAILY@1200 07/29/16 03/17/17 History Furosemide [Lasix] 40 mg PO DAILY@0600 07/29/16 03/17/17 History Carvedilol [Coreg] 6.25 mg PO BID@0900,1700 03/16/17 03/16/17 History Eviredge 150 mg PO HS 03/16/17 03/16/17 History HYDROcodone/APAP 5-325MG [[place] 1 tab PO Q6H PRN 03/16/17 03/16/17 History 5-325] Insulin Aspart [NovoLOG Flexpen] 6 units SQ AC-TID 03/16/17 03/16/17 History Insulin Glargine,Hum.rec.anlog 8 unit SQ 03/16/17 03/16/17 History [Basaglar Kwikpen U-100] hydrALAZINE HCL [Apresoline] 25 mg PO TID@0900,1300,1700 03/16/17 03/16/17 History Allergies Allergy/AdvReac Type Severity Reaction Status Date / Time No Known Allergies Allergy Verified 03/16/17 17:03 Physical Exam Vitals: Vital Signs Temp Pulse Pulse Resp BP Pulse Ox 03/17/17 08:06 120 H 03/17/17 07:58 120 H 03/17/17 07:00 121 H 30 H 99 03/17/17 06:30 120 H 29 H 99 03/17/17 06:00 118 H 29 H 99 03/17/17 05:30 119 H 15 99 03/17/17 05:00 116 H 32 H 99 03/17/17 04:30 112 H 30 H 99 03/17/17 04:00 98 F 110 H 29 H 99 03/17/17 03:50 112 H 29 H 98 03/17/17 03:40 117 H 30 H 99 03/17/17 03:30 109 H 28 H 100 03/17/17 03:20 107 H 28 H 100 03/17/17 03:10 101 H 26 H 100 03/17/17 03:00 101 H 25 H 100 03/17/17 02:59 101 H 03/17/17 02:50 104 H 27 H 100 03/17/17 02:45 104 H 03/17/17 02:40 106 H 26 H 100 03/17/17 02:30 103 H 26 H 100 03/17/17 02:20 101 H 24 100 03/17/17 02:10 100 24 100 03/17/17 02:00 102 H 24 100 03/17/17 01:50 103 H 24 100 03/17/17 01:40 105 H 24 100 03/17/17 01:30 110 H 23 100 03/17/17 01:20 108 H 26 H 100 03/17/17 01:10 109 H 24 100 03/17/17 01:00 113 H 25 H 100 03/17/17 00:50 115 H 31 H 100 03/17/17 00:40 119 H 22 100 03/17/17 00:30 123 H 24 100 03/17/17 00:20 123 H 21 100 03/17/17 00:10 123 H 16 100 03/17/17 00:00 97.7 F 119 H 26 H 100 03/16/17 23:50 120 H 18 100 03/16/17 23:40 120 H 19 100 03/16/17 23:37 120 H 15 100 03/16/17 23:30 124 H 24 96 08/06/17 23:20 118 H 14 99 03/16/17 23:10 122 H 15 99 03/16/17 23:00 98 F 124 H 15 100 03/16/17 22:50 123 H 13 99 03/16/17 22:40 122 H 8 L 99 03/16/17 22:30 122 H 16 100 03/16/17 22:20 125 H 100 03/16/17 19:11 97.8 F 112 H 28 H 134/66 98 03/16/17 18:21 97.4 F L 114 H 28 H 140/72 100 03/16/17 17:27 118 H 36 H 116/62 98 03/16/17 16:46 120 H 03/16/17 16:43 97.8 F 120 H 38 H 95/63 97 03/16/17 16:05 97.4 F L 128 H 20 82/53 96 Intake and Output 03/16/17 03/17/17 03/17/17 22:59 06:59 14:59 Intake Total 3300 1612.502 130.134 Output Total 210 50 5 Balance 3090 1562.502 125.134 Intake: IV 3300 125 125 0.9 125 125 Intake, IV Titration 1487.502 5.134 Amount ACETAMINOPHEN IV (For NPO 100 ) 1,000 mg In Empty Bag 1 bag @ 400 mls/hr IVPB ONCE PRN Rx#:[id number] Insulin Regular 100 unit 5.5 5.134 In Sodium Chloride 0.9% 100 ml @ Per Protocol IV .Q0M [facility] Rx#:[id number] Lactated Ringers 1,000 ml 875 @ 125 mls/hr IV .Q8H ONE Rx#:[id number] Magnesium Sulfate-D5w Pmx 200 1 gm In Dextrose/Water 1 100ml.bag @ 100 mls/hr IVPB Q1H XENA Rx#: [id number] Norepinephrin 4 mg-0.9% 168.75 Ns Pmx 4 mg In 250 ml @ Titrate IV .Q0M XENA Rx#: [id number] Piperacillin-Tazobactam 3 100 .375 gm In Dextrose/Water 1 50ml.bag @ 12.5 mls/hr IVPB Q8HR XENA Rx#: [id number] Propofol 1,000 mg In 100 38.252 ml @ Titrate IV .Q0M [facility] Rx#:[id number] Output: Drainage 0 0 Right Upper Abdomen 0 0 Urine 10 50 5 Estimated Blood Loss 200 Other: Voiding Method Indwelling Catheter # Bowel Movements 2 Weight 84.822 kg 85.2 kg ABP, PAP, CO, CI - Last 8 Hours Arterial Blood Pressure 108/50 Arterial Blood Pressure 96/47 Arterial Blood Pressure 97/51 Arterial Blood Pressure 103/56 Arterial Blood Pressure 96/53 Arterial Blood Pressure 100/54 Arterial Blood Pressure 100/53 Arterial Blood Pressure 80/46 Arterial Blood Pressure 114/57 Arterial Blood Pressure 120/58 Arterial Blood Pressure 114/54 Arterial Blood Pressure 87/49 Arterial Blood Pressure 89/52 Arterial Blood Pressure 119/59 Arterial Blood Pressure 85/50 Arterial Blood Pressure 98/55 Arterial Blood Pressure 95/53 Arterial Blood Pressure 94/53 Arterial Blood Pressure 87/51 Arterial Blood Pressure 99/55 Arterial Blood Pressure 107/59 Arterial Blood Pressure 109/56 Arterial Blood Pressure 120/64 Gen: This is an obese 66-year-old male. He is seen in the ICU, intubated and on mechanical ventilation. Patient appears comfortable and in no acute distress. HEENT: Head is atraumatic, normocephalic. Oral ET and gastric tube in place. White coating noted on the tongue. Mucous membranes are slightly dry.. NECK: Supple. No JVD. No lymphadenopathy. Trachea midline. LUNGS: Clear to auscultation. No wheezes or rhonchi. No intercostal retractions. HEART: Regular rate and rhythm. No murmur. Patient is tachycardic. ABDOMEN: Soft. Bowel sounds are not present. No masses. No tenderness. LOUISA drain to the right upper abdomen is draining serosanguineous fluid. Dressing to the right upper quadrant and midline are in place with no breakthrough drainage or bleeding. Castellanos catheter in place draining clear pinky urine. EXTREMITIES: No pedal edema to the left lower extremity. Patient has amputations of toes 2 through 5 on the left and a right below the knee amputation. All extremities are cool to the touch. No mottling noted. NEUROLOGICAL: Patient is unresponsive, currently intubated and on sedation Results Results: Laboratory Results WBC 9.2 k/uL (3.8-10.6) 03/17/17 04:20 RBC 4.03 m/uL (4.30-5.90) L 03/17/17 04:20 Hgb 11.7 gm/dL (13.0-17.5) L 03/17/17 04:20 Hct 37.0 % (39.0-53.0) L 03/17/17 04:20 MCV 91.8 fL (80.0-100.0) 03/17/17 04:20 MCH 29.1 pg (25.0-35.0) 03/17/17 04:20 MCHC 31.8 g/dL (31.0-37.0) 03/17/17 04:20 RDW 14.8 % (11.5-15.5) 03/17/17 04:20 Plt Count 215 k/uL (150-450) 03/17/17 04:20 Neutrophils % 85 % 03/16/17 16:30 Neutrophils % (Manual) 61.6 % 03/17/17 04:20 Band Neutrophils % 15.2 % 03/17/17 04:20 Lymphocytes % 8 % 03/16/17 16:30 Lymphocytes % (Manual) 18.2 % 03/17/17 04:20 Monocytes % 6 % 03/16/17 16:30 Monocytes % (Manual) 5.1 % 03/17/17 04:20 Eosinophils % 0 % 03/16/17 16:30 Basophils % 0 % 03/16/17 16:30 Metamyelocytes % 4.0 % 03/16/17 22:50 Neutrophils # 6.4 k/uL (1.3-7.7) 03/16/17 16:30 Neutrophils # (Manual) 7.1 k/uL (1.3-7.7) 03/17/17 04:20 Lymphocytes # 0.6 k/uL (1.0-4.8) L 03/16/17 16:30 Lymphocytes # (Manual) 1.7 k/uL (1.0-4.8) 03/17/17 04:20 Monocytes # 0.4 k/uL (0-1.0) 03/16/17 16:30 Monocytes # (Manual) 0.5 k/uL (0-1.0) 03/17/17 04:20 Eosinophils # 0.0 k/uL (0-0.7) 03/16/17 16:30 Basophils # 0.0 k/uL (0-0.2) 03/16/17 16:30 Nucleated RBCs 0 /100 WBC (0-0) 03/17/17 04:20 Manual Slide Review Performed 03/17/17 04:20 Toxic Granulation Present 03/16/17 16:30 RBC Morphology Normal 03/16/17 16:30 PT 10.4 sec (9.0-12.0) 03/16/17 16:30 INR 1.0 (<1.2) 03/16/17 16:30 APTT 22.1 sec (22.0-30.0) 03/16/17 16:30 Sample Site [place] 03/17/17 04:39 ABG pH 7.31 (7.35-7.45) L 03/17/17 04:39 ABG pCO2 27 mmHg (35-45) L 03/17/17 04:39 ABG pO2 198 mmHg (83-108) H 03/17/17 04:39 ABG HCO3 13 mmol/L (21-25) L 03/17/17 04:39 ABG Total CO2 14 mmol/L (19-24) L 03/17/17 04:39 ABG O2 Saturation 100.0 % (94-97) H 03/17/17 04:39 ABG Base Excess -11.6 mmol/L 03/17/17 04:39 ABG Hematocrit 29 % (34.0-46.0) L 03/16/17 21:12 ABG Lactic Acid 2.7 mmol/L (0.5-1.6) H* 03/17/17 05:10 VBG pH 7.25 (7.31-7.41) L 03/16/17 16:30 VBG pCO2 29 mmHg (37-51) L 03/16/17 16:30 VBG HCO3 12 mmol/L (24-28) L 03/16/17 16:30 FiO2 50 % 03/17/17 04:39 Sodium 135 mmol/L (137-145) L 03/17/17 04:20 Potassium 5.0 mmol/L (3.5-5.1) 03/17/17 04:20 Chloride 108 mmol/L (98-107) H 03/17/17 04:20 Carbon Dioxide 12 mmol/L (22-30) L 03/17/17 04:20 Anion Gap 15 mmol/L 03/17/17 04:20 BUN 100 mg/dL (9-20) H* 03/17/17 04:20 Creatinine 4.90 mg/dL (0.66-1.25) H 03/17/17 04:20 Est GFR (MDRD) Af Amer 15 (>60 ml/min/1.73 sqM) 03/17/17 04:20 Est GFR (MDRD) Non-Af 12 (>60 ml/min/1.73 sqM) 03/17/17 04:20 Glucose 265 mg/dL (74-99) H 03/17/17 04:20 POC Glucose (mg/dL) 147 mg/dL (75-99) H 03/17/17 09:05 POC Glu Food Preparation Kitchen Aide ID Zach Daniels 03/17/17 09:05 Lactic Ac Sepsis Rflx Y 03/16/17 16:57 Plasma Lactic Acid Mario 2.8 mmol/L (0.7-2.0) H* 03/16/17 22:42 Calcium 7.6 mg/dL (8.4-10.2) L 03/17/17 04:20 Phosphorus 4.2 mg/dL (2.5-4.5) 03/17/17 04:20 Magnesium 2.2 mg/dL (1.6-2.3) 03/17/17 04:20 Total Bilirubin 0.6 mg/dL (0.2-1.3) 03/17/17 04:20 AST 69 U/L (17-59) H 03/17/17 04:20 ALT 40 U/L (21-72) 03/17/17 04:20 Alkaline Phosphatase 22 U/L (38-126) L 03/17/17 04:20 Total Creatine Kinase 216 U/L (55-170) H 03/16/17 16:30 CK-MB (CK-2) 2.9 ng/mL (0.0-2.4) H* 03/16/17 16:30 CK-MB (CK-2) Rel Index 1.3 03/16/17 16:30 Troponin I 0.590 ng/mL (0.000-0.034) H* 03/16/17 16:30 Total Protein 4.1 g/dL (6.3-8.2) L 03/17/17 04:20 Albumin 1.9 g/dL (3.5-5.0) L 03/17/17 04:20 TSH 0.672 mIU/L (0.465-4.680) 03/16/17 16:30 Urine Color Dark Yellow 03/16/17 19:00 Urine Appearance Cloudy (Clear) 03/16/17 19:00 Urine pH 5.0 (5.0-8.0) 03/16/17 19:00 Ur Specific Tensed 1.017 (1.001-1.035) 03/16/17 19:00 Urine Protein 1+ (Negative) H 03/16/17 19:00 Urine Glucose (UA) 1+ (Negative) H 03/16/17 19:00 Urine Ketones Negative (Negative) 03/16/17 19:00 Urine Blood Trace (Negative) H 03/16/17 19:00 Urine Nitrite Negative (Negative) 03/16/17 19:00 Urine Bilirubin Negative (Negative) 03/16/17 19:00 Urine Urobilinogen <2.0 mg/dL (<2.0) 03/16/17 19:00 Ur Leukocyte Esterase Negative (Negative) 03/16/17 19:00 Urine RBC 15 /hpf (0-5) H 03/16/17 19:00 Urine WBC 4 /hpf (0-5) 03/16/17 19:00 Amorphous Sediment Occasional /hpf (None) H 03/16/17 19:00 Hyaline Casts 110 /lpf (0-2) H 03/16/17 19:00 C. difficile (EIA) Intrp Negative (Negative) 03/16/17 23:00 Blood Type A Positive 03/16/17 16:30 Blood Type Recheck No 03/16/17 16:30 Antibody Screen NEGATIVE 03/16/17 16:30 Spec Expiration Date 03/19/2017 - 232903/16/17 16:30 CBC & Chem 7: 03/17/17 04:20 03/17/17 04:20 Labs: Abnormal Lab Results - Last 24 Hours (Table) 03/16/17 03/16/17 03/16/17 Range/Units 16:19 16:30 16:30 RBC (4.30-5.90) m/uL Hgb (13.0-17.5) gm/dL Hct (39.0-53.0) % Lymphocytes # 0.6 L (1.0-4.8) k/uL ABG pH (7.35-7.45) ABG pCO2 (35-45) mmHg ABG pO2 (83-108) mmHg ABG HCO3 (21-25) mmol/L ABG Total CO2 (19-24) mmol/L ABG O2 Saturation (94-97) % ABG Hematocrit (34.0-46.0) % ABG Lactic Acid (0.5-1.6) mmol/L VBG pH (7.31-7.41) VBG pCO2 (37-51) mmHg VBG HCO3 (24-28) mmol/L Sodium (137-145) mmol/L Potassium (3.5-5.1) mmol/L Chloride (98-107) mmol/L Carbon Dioxide (22-30) mmol/L BUN (9-20) mg/dL Creatinine (0.66-1.25) mg/dL Glucose (74-99) mg/dL POC Glucose (mg/dL) 397 H (75-99) mg/dL Plasma Lactic Acid Mario (0.7-2.0) mmol/L Calcium (8.4-10.2) mg/dL Phosphorus (2.5-4.5) mg/dL AST (17-59) U/L Alkaline Phosphatase (38-126) U/L Total Creatine Kinase 216 H (55-170) U/L CK-MB (CK-2) 2.9 H* (0.0-2.4) ng/mL Troponin I 0.590 H* (0.000-0.034) ng/mL Total Protein (6.3-8.2) g/dL Albumin (3.5-5.0) g/dL Urine Protein (Negative) Urine Glucose (UA) (Negative) Urine Blood (Negative) Urine RBC (0-5) /hpf Amorphous Sediment (None) /hpf Hyaline Casts (0-2) /lpf 03/16/17 03/16/17 03/16/17 Range/Units 16:30 16:30 16:30 RBC (4.30-5.90) m/uL Hgb (13.0-17.5) gm/dL Hct (39.0-53.0) % Lymphocytes # (1.0-4.8) k/uL ABG pH (7.35-7.45) ABG pCO2 (35-45) mmHg ABG pO2 (83-108) mmHg ABG HCO3 (21-25) mmol/L ABG Total CO2 (19-24) mmol/L ABG O2 Saturation (94-97) % ABG Hematocrit (34.0-46.0) % ABG Lactic Acid (0.5-1.6) mmol/L VBG pH 7.25 L (7.31-7.41) VBG pCO2 29 L (37-51) mmHg VBG HCO3 12 L (24-28) mmol/L Sodium 132 L (137-145) mmol/L Potassium 5.4 H (3.5-5.1) mmol/L Chloride (98-107) mmol/L Carbon Dioxide 9 L* (22-30) mmol/L BUN 108 H* (9-20) mg/dL Creatinine 5.90 H* (0.66-1.25) mg/dL Glucose 496 H* (74-99) mg/dL POC Glucose (mg/dL) (75-99) mg/dL Plasma Lactic Acid Mario 5.4 H* (0.7-2.0) mmol/L Calcium (8.4-10.2) mg/dL Phosphorus (2.5-4.5) mg/dL AST (17-59) U/L Alkaline Phosphatase (38-126) U/L Total Creatine Kinase (55-170) U/L CK-MB (CK-2) (0.0-2.4) ng/mL Troponin I (0.000-0.034) ng/mL Total Protein 5.5 L (6.3-8.2) g/dL Albumin 2.9 L (3.5-5.0) g/dL Urine Protein (Negative) Urine Glucose (UA) (Negative) Urine Blood (Negative) Urine RBC (0-5) /hpf Amorphous Sediment (None) /hpf Hyaline Casts (0-2) /lpf 03/16/17 03/16/17 03/16/17 Range/Units 19:00 21:12 22:42 RBC (4.30-5.90) m/uL Hgb (13.0-17.5) gm/dL Hct (39.0-53.0) % Lymphocytes # (1.0-4.8) k/uL ABG pH 7.19 L* (7.35-7.45) ABG pCO2 (35-45) mmHg ABG pO2 355 H (83-108) mmHg ABG HCO3 13 L (21-25) mmol/L ABG Total CO2 (19-24) mmol/L ABG O2 Saturation 99.4 H (94-97) % ABG Hematocrit 29 L (34.0-46.0) % ABG Lactic Acid (0.5-1.6) mmol/L VBG pH (7.31-7.41) VBG pCO2 (37-51) mmHg VBG HCO3 (24-28) mmol/L Sodium (137-145) mmol/L Potassium (3.5-5.1) mmol/L Chloride (98-107) mmol/L Carbon Dioxide (22-30) mmol/L BUN (9-20) mg/dL Creatinine (0.66-1.25) mg/dL Glucose (74-99) mg/dL POC Glucose (mg/dL) (75-99) mg/dL Plasma Lactic Acid Mario 2.8 H* (0.7-2.0) mmol/L Calcium (8.4-10.2) mg/dL Phosphorus (2.5-4.5) mg/dL AST (17-59) U/L Alkaline Phosphatase (38-126) U/L Total Creatine Kinase (55-170) U/L CK-MB (CK-2) (0.0-2.4) ng/mL Troponin I (0.000-0.034) ng/mL Total Protein (6.3-8.2) g/dL Albumin (3.5-5.0) g/dL Urine Protein 1+ H (Negative) Urine Glucose (UA) 1+ H (Negative) Urine Blood Trace H (Negative) Urine RBC 15 H (0-5) /hpf Amorphous Sediment Occasional H (None) /hpf Hyaline Casts 110 H (0-2) /lpf 03/16/17 03/16/17 03/16/17 Range/Units 22:42 22:44 22:50 RBC 4.08 L (4.30-5.90) m/uL Hgb 11.9 L (13.0-17.5) gm/dL Hct 38.0 L (39.0-53.0) % Lymphocytes # (1.0-4.8) k/uL ABG pH 7.14 L* (7.35-7.45) ABG pCO2 (35-45) mmHg ABG pO2 332 H (83-108) mmHg ABG HCO3 14 L (21-25) mmol/L ABG Total CO2 15 L (19-24) mmol/L ABG O2 Saturation 100.0 H (94-97) % ABG Hematocrit (34.0-46.0) % ABG Lactic Acid 2.8 H* (0.5-1.6) mmol/L VBG pH (7.31-7.41) VBG pCO2 (37-51) mmHg VBG HCO3 (24-28) mmol/L Sodium (137-145) mmol/L Potassium (3.5-5.1) mmol/L Chloride (98-107) mmol/L Carbon Dioxide (22-30) mmol/L BUN (9-20) mg/dL Creatinine (0.66-1.25) mg/dL Glucose (74-99) mg/dL POC Glucose (mg/dL) (75-99) mg/dL Plasma Lactic Acid Mario (0.7-2.0) mmol/L Calcium (8.4-10.2) mg/dL Phosphorus (2.5-4.5) mg/dL AST (17-59) U/L Alkaline Phosphatase (38-126) U/L Total Creatine Kinase (55-170) U/L CK-MB (CK-2) (0.0-2.4) ng/mL Troponin I (0.000-0.034) ng/mL Total Protein (6.3-8.2) g/dL Albumin (3.5-5.0) g/dL Urine Protein (Negative) Urine Glucose (UA) (Negative) Urine Blood (Negative) Urine RBC (0-5) /hpf Amorphous Sediment (None) /hpf Hyaline Casts (0-2) /lpf 03/16/17 03/16/17 03/17/17 Range/Units 22:50 23:03 01:47 RBC (4.30-5.90) m/uL Hgb (13.0-17.5) gm/dL Hct (39.0-53.0) % Lymphocytes # (1.0-4.8) k/uL ABG pH (7.35-7.45) ABG pCO2 (35-45) mmHg ABG pO2 (83-108) mmHg ABG HCO3 (21-25) mmol/L ABG Total CO2 (19-24) mmol/L ABG O2 Saturation (94-97) % ABG Hematocrit (34.0-46.0) % ABG Lactic Acid (0.5-1.6) mmol/L VBG pH (7.31-7.41) VBG pCO2 (37-51) mmHg VBG HCO3 (24-28) mmol/L Sodium (137-145) mmol/L Potassium (3.5-5.1) mmol/L Chloride 109 H (98-107) mmol/L Carbon Dioxide 15 L (22-30) mmol/L BUN 95 H* (9-20) mg/dL Creatinine 4.90 H (0.66-1.25) mg/dL Glucose 309 H (74-99) mg/dL POC Glucose (mg/dL) 283 H 274 H (75-99) mg/dL Plasma Lactic Acid Mario (0.7-2.0) mmol/L Calcium 7.7 L (8.4-10.2) mg/dL Phosphorus 4.9 H (2.5-4.5) mg/dL AST 66 H (17-59) U/L Alkaline Phosphatase (38-126) U/L Total Creatine Kinase (55-170) U/L CK-MB (CK-2) (0.0-2.4) ng/mL Troponin I (0.000-0.034) ng/mL Total Protein 4.1 L (6.3-8.2) g/dL Albumin 2.0 L (3.5-5.0) g/dL Urine Protein (Negative) Urine Glucose (UA) (Negative) Urine Blood (Negative) Urine RBC (0-5) /hpf Amorphous Sediment (None) /hpf Hyaline Casts (0-2) /lpf 03/17/17 03/17/17 03/17/17 Range/Units 04:14 04:20 04:20 RBC 4.03 L (4.30-5.90) m/uL Hgb 11.7 L (13.0-17.5) gm/dL Hct 37.0 L (39.0-53.0) % Lymphocytes # (1.0-4.8) k/uL ABG pH (7.35-7.45) ABG pCO2 (35-45) mmHg ABG pO2 (83-108) mmHg ABG HCO3 (21-25) mmol/L ABG Total CO2 (19-24) mmol/L ABG O2 Saturation (94-97) % ABG Hematocrit (34.0-46.0) % ABG Lactic Acid (0.5-1.6) mmol/L VBG pH (7.31-7.41) VBG pCO2 (37-51) mmHg VBG HCO3 (24-28) mmol/L Sodium 135 L (137-145) mmol/L Potassium (3.5-5.1) mmol/L Chloride 108 H (98-107) mmol/L Carbon Dioxide 12 L (22-30) mmol/L BUN 100 H* (9-20) mg/dL Creatinine 4.90 H (0.66-1.25) mg/dL Glucose 265 H (74-99) mg/dL POC Glucose (mg/dL) 266 H (75-99) mg/dL Plasma Lactic Acid Mario (0.7-2.0) mmol/L Calcium 7.6 L (8.4-10.2) mg/dL Phosphorus (2.5-4.5) mg/dL AST 69 H (17-59) U/L Alkaline Phosphatase 22 L (38-126) U/L Total Creatine Kinase (55-170) U/L CK-MB (CK-2) (0.0-2.4) ng/mL Troponin I (0.000-0.034) ng/mL Total Protein 4.1 L (6.3-8.2) g/dL Albumin 1.9 L (3.5-5.0) g/dL Urine Protein (Negative) Urine Glucose (UA) (Negative) Urine Blood (Negative) Urine RBC (0-5) /hpf Amorphous Sediment (None) /hpf Hyaline Casts (0-2) /lpf 03/17/17 03/17/17 03/17/17 Range/Units 04:20 04:39 05:10 RBC (4.30-5.90) m/uL Hgb (13.0-17.5) gm/dL Hct (39.0-53.0) % Lymphocytes # (1.0-4.8) k/uL ABG pH 7.31 L (7.35-7.45) ABG pCO2 27 L (35-45) mmHg ABG pO2 198 H (83-108) mmHg ABG HCO3 13 L (21-25) mmol/L ABG Total CO2 14 L (19-24) mmol/L ABG O2 Saturation 100.0 H (94-97) % ABG Hematocrit (34.0-46.0) % ABG Lactic Acid 3.0 H* 2.7 H* (0.5-1.6) mmol/L VBG pH (7.31-7.41) VBG pCO2 (37-51) mmHg VBG HCO3 (24-28) mmol/L Sodium (137-145) mmol/L Potassium (3.5-5.1) mmol/L Chloride (98-107) mmol/L Carbon Dioxide (22-30) mmol/L BUN (9-20) mg/dL Creatinine (0.66-1.25) mg/dL Glucose (74-99) mg/dL POC Glucose (mg/dL) (75-99) mg/dL Plasma Lactic Acid Mario (0.7-2.0) mmol/L Calcium (8.4-10.2) mg/dL Phosphorus (2.5-4.5) mg/dL AST (17-59) U/L Alkaline Phosphatase (38-126) U/L Total Creatine Kinase (55-170) U/L CK-MB (CK-2) (0.0-2.4) ng/mL Troponin I (0.000-0.034) ng/mL Total Protein (6.3-8.2) g/dL Albumin (3.5-5.0) g/dL Urine Protein (Negative) Urine Glucose (UA) (Negative) Urine Blood (Negative) Urine RBC (0-5) /hpf Amorphous Sediment (None) /hpf Hyaline Casts (0-2) /lpf 03/17/17 03/17/17 03/17/17 Range/Units 05:16 06:08 07:04 RBC (4.30-5.90) m/uL Hgb (13.0-17.5) gm/dL Hct (39.0-53.0) % Lymphocytes # (1.0-4.8) k/uL ABG pH (7.35-7.45) ABG pCO2 (35-45) mmHg ABG pO2 (83-108) mmHg ABG HCO3 (21-25) mmol/L ABG Total CO2 (19-24) mmol/L ABG O2 Saturation (94-97) % ABG Hematocrit (34.0-46.0) % ABG Lactic Acid (0.5-1.6) mmol/L VBG pH (7.31-7.41) VBG pCO2 (37-51) mmHg VBG HCO3 (24-28) mmol/L Sodium (137-145) mmol/L Potassium (3.5-5.1) mmol/L Chloride (98-107) mmol/L Carbon Dioxide (22-30) mmol/L BUN (9-20) mg/dL Creatinine (0.66-1.25) mg/dL Glucose (74-99) mg/dL POC Glucose (mg/dL) 235 H 217 H 169 H (75-99) mg/dL Plasma Lactic Acid Mario (0.7-2.0) mmol/L Calcium (8.4-10.2) mg/dL Phosphorus (2.5-4.5) mg/dL AST (17-59) U/L Alkaline Phosphatase (38-126) U/L Total Creatine Kinase (55-170) U/L CK-MB (CK-2) (0.0-2.4) ng/mL Troponin I (0.000-0.034) ng/mL Total Protein (6.3-8.2) g/dL Albumin (3.5-5.0) g/dL Urine Protein (Negative) Urine Glucose (UA) (Negative) Urine Blood (Negative) Urine RBC (0-5) /hpf Amorphous Sediment (None) /hpf Hyaline Casts (0-2) /lpf 03/17/17 03/17/17 Range/Units 07:58 09:05 RBC (4.30-5.90) m/uL Hgb (13.0-17.5) gm/dL Hct (39.0-53.0) % Lymphocytes # (1.0-4.8) k/uL ABG pH (7.35-7.45) ABG pCO2 (35-45) mmHg ABG pO2 (83-108) mmHg ABG HCO3 (21-25) mmol/L ABG Total CO2 (19-24) mmol/L ABG O2 Saturation (94-97) % ABG Hematocrit (34.0-46.0) % ABG Lactic Acid (0.5-1.6) mmol/L VBG pH (7.31-7.41) VBG pCO2 (37-51) mmHg VBG HCO3 (24-28) mmol/L Sodium (137-145) mmol/L Potassium (3.5-5.1) mmol/L Chloride (98-107) mmol/L Carbon Dioxide (22-30) mmol/L BUN (9-20) mg/dL Creatinine (0.66-1.25) mg/dL Glucose (74-99) mg/dL POC Glucose (mg/dL) 152 H 147 H (75-99) mg/dL Plasma Lactic Acid Mario (0.7-2.0) mmol/L Calcium (8.4-10.2) mg/dL Phosphorus (2.5-4.5) mg/dL AST (17-59) U/L Alkaline Phosphatase (38-126) U/L Total Creatine Kinase (55-170) U/L CK-MB (CK-2) (0.0-2.4) ng/mL Troponin I (0.000-0.034) ng/mL Total Protein (6.3-8.2) g/dL Albumin (3.5-5.0) g/dL Urine Protein (Negative) Urine Glucose (UA) (Negative) Urine Blood (Negative) Urine RBC (0-5) /hpf Amorphous Sediment (None) /hpf Hyaline Casts (0-2) /lpf Microbiology - Last 24 Hours (Table) 03/16/17 19:00 Urine Culture - Preliminary Urine,Voided Assessment and Plan Plan: This is a 66-year-old male presented to the hospital with abdominal pain secondary to perforated peptic ulcer with sepsis, abdominal sepsis from perforated ulcer, septic shock and multiorgan failure including acute kidney injury, respiratory failure. He is status post repair of perforated ulcer and open cholecystectomy. The patient is being followed by Dr. Lopez for intensive care management. He is currently on antimicrobials in the form of fluconazole, Flagyl and Zosyn which will be continued. Blood culture and urine culture are in process. Continue supportive care. Further recommendations as patient progresses. Prognosis is guarded. The above dictated assessment and findings were discussed with Dr. Cox. The impression and plan of care have been directed as dictated. Shawanda Canela nurse practitioner acting as scribe for Dr. Cox.
[2017-03-17 10:12] LABS: Glucose,Whole Blood 134 mg/dL (75-99)
[2017-03-17] MEDS: PROPOFOL 1,000 MG/100 ML VIAL IV SCH ×2 (11:01→18:27)
[2017-03-17 11:12] LABS: Glucose,Whole Blood 91 mg/dL (75-99)
--- NOTE | 2017-03-17 12:00 | P.CNPUL ---
History of Present Illness Consult date: 03/17/17 Chief complaint: Acute septic shock History of present illness: A 66-year-old male patient who came into the intensive care unit after undergoing expiratory laparotomy and repair of a perforated peptic ulcer with a modified Don patch and open cholecystectomy. Surgery was done last night and the patient was brought into the intensive care unit intubated on a mechanical ventilator. According to the reported history the patient was having 3-4 days history of a vague abdominal pain. This being gradually got worse. The patient was also having constipation. He had some nausea without vomiting. Appetite was diminished. No bright red blood per rectum. The pain was mainly over the central abdomen. No history of any peptic ulcer disease or diverticular disease. The x-ray of the abdomen in the emergency department showed pneumoperitoneum and the CAT scan confirmed the presence of a large volume of free air. The gallbladder was also thickened. The majority of the air was in the upper abdomen. Intraoperatively, the patient was found to have a perforated peptic ulcer and a gangrenous gallbladder. The patient is currently in the intensive care unit. The patient has received a total of 7 L of IV fluids. He has chronic renal failure and had developed acute kidney injury on top of chronic renal insufficiency and currently is oliguric producing only 5-10 mL an hour of urine output. The patient is intubated on a mechanical ventilator. The patient on assist control mode at the rate of 10, tidal volume 450, FiO2 of 40% and a PEEP of 5. His blood. From this morning showed a pH of 7.31 with a pCO2 of 27 and pO2 of 198 and based on that the FiO2 was weaned down. Chest x-ray shows no pneumothorax or pneumoperitoneum. ET tube is in a good location. Hemodynamically, the patient was doing poorly. He was in septic shock. He was tachycardic with a heart rate in the 1:30 range. This improved with fluid resuscitation his current heart rate is sinus at 110. He also was on higher doses of pressors and norepinephrine infusion was running at 25 mics and currently is down to 50 mics. He is covered with a combination of IV Zosyn, IV Diflucan and IV Flagyl. He is afebrile for now. Is sedated with Diprivan. He has a below-knee amputation on the right lower extremity and the feet on the left lower extremity shows marked diminished pulses at is obtainable by Doppler. Lactic acid level was 5.4 at time of admission is currently down to 2.7. He has a right IJ triple-lumen catheter. He has a right upper extremity radial art line. He also has a LOUISA drain in his right lower quadrant area. 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 Right BKA; Skin cancer removed: back of neck, upper back, Past Anesthesia/Blood Transfusion Reactions: No Reported Reaction Past Psychological History: No Psychological Hx Reported Smoking Status: Never smoker Past Alcohol Use History: None Reported Additional Past Alcohol Use History / Comment(s): . Past Drug Use History: None Reported - Past Family History Mother Family Medical History: Diabetes Mellitus, Renal Disease Father Family Medical History: Congestive Heart Failure (CHF) Brother(s) Family Medical History: No Reported History Sister(s) Family Medical History: No Reported History Medications and Allergies Home Medications Medication Instructions Recorded Confirmed Type Ferrous Sulfate [Iron (65 MG 325 mg PO QAM 05/13/16 03/16/17 History Elemental)] Lactobacillus Acidophilus 1 tab PO BID 05/19/16 03/16/17 History [Acidophilus] Omeprazole 20 mg PO DAILY 05/29/16 03/17/17 History Furosemide [Lasix] 20 mg PO DAILY@1200 07/29/16 03/17/17 History Furosemide [Lasix] 40 mg PO DAILY@0600 07/29/16 03/17/17 History Carvedilol [Coreg] 6.25 mg PO BID@0900,1700 03/16/17 03/16/17 History Eviredge 150 mg PO HS 03/16/17 03/16/17 History HYDROcodone/APAP 5-325MG [Alverda 1 tab PO Q6H PRN 03/16/17 03/16/17 History 5-325] Insulin Aspart [NovoLOG Flexpen] 6 units SQ AC-TID 03/16/17 03/16/17 History Insulin Glargine,Hum.rec.anlog 8 unit SQ 03/16/17 03/16/17 History [Basaglar Kwikpen U-100] hydrALAZINE HCL [Apresoline] 25 mg PO TID@0900,1300,1700 03/16/17 03/16/17 History Allergies Allergy/AdvReac Type Severity Reaction Status Date / Time No Known Allergies Allergy Verified 03/16/17 17:03 Physical Exam Vitals: Vital Signs Temp Pulse Pulse Resp BP Pulse Ox 03/17/17 11:19 118 H 03/17/17 11:09 116 H 03/17/17 11:00 120 H 29 H 91/60 100 03/17/17 10:30 128 H 33 H 91/60 98 03/17/17 10:00 128 H 32 H 91/60 95 03/17/17 09:30 125 H 31 H 91/60 100 03/17/17 09:00 120 H 31 H 116/63 100 03/17/17 08:30 124 H 31 H 116/63 98 03/17/17 08:06 120 H 03/17/17 08:00 99.3 F 124 H 127 H 30 H 116/63 98 03/17/17 07:58 120 H 03/17/17 07:30 124 H 30 H 137/64 97 03/17/17 07:00 121 H 30 H 99 03/17/17 06:30 120 H 29 H 99 03/17/17 06:00 118 H 29 H 99 03/17/17 05:30 119 H 15 99 03/17/17 05:00 116 H 32 H 99 03/17/17 04:30 112 H 30 H 99 03/17/17 04:00 98 F 110 H 29 H 99 03/17/17 03:50 112 H 29 H 98 03/17/17 03:40 117 H 30 H 99 03/17/17 03:30 109 H 28 H 100 03/17/17 03:20 107 H 28 H 100 03/17/17 03:10 101 H 26 H 100 03/17/17 03:00 101 H 25 H 100 03/17/17 02:59 101 H 03/17/17 02:50 104 H 27 H 100 03/17/17 02:45 104 H 03/17/17 02:40 106 H 26 H 100 03/17/17 02:30 103 H 26 H 100 03/17/17 02:20 101 H 24 100 03/17/17 02:10 100 24 100 03/17/17 02:00 102 H 24 100 03/17/17 01:50 103 H 24 100 03/17/17 01:40 105 H 24 100 03/17/17 01:30 110 H 23 100 03/17/17 01:20 108 H 26 H 100 03/17/17 01:10 109 H 24 100 03/17/17 01:00 113 H 25 H 100 03/17/17 00:50 115 H 31 H 100 03/17/17 00:40 119 H 22 100 03/17/17 00:30 123 H 24 100 03/17/17 00:20 123 H 21 100 03/17/17 00:10 123 H 16 100 03/17/17 00:00 97.7 F 119 H 26 H 100 03/16/17 23:50 120 H 18 100 03/16/17 23:40 120 H 19 100 03/16/17 23:37 120 H 15 100 03/16/17 23:30 124 H 24 96 03/16/17 23:20 118 H 14 99 03/16/17 23:10 122 H 15 99 03/16/17 23:00 98 F 124 H 15 100 03/16/17 22:50 123 H 13 99 03/16/17 22:40 122 H 8 L 99 03/16/17 22:30 122 H 16 100 03/16/17 22:20 125 H 100 03/16/17 19:11 97.8 F 112 H 28 H 134/66 98 03/16/17 18:21 97.4 F L 114 H 28 H 140/72 100 03/16/17 17:27 118 H 36 H 116/62 98 03/16/17 16:46 120 H 03/16/17 16:43 97.8 F 120 H 38 H 95/63 97 03/16/17 16:05 97.4 F L 128 H 20 82/53 96 Intake and Output 03/16/17 03/17/17 03/17/17 22:59 06:59 14:59 Intake Total 3300 1612.502 874.826 Output Total 210 50 15 Balance 3090 1562.502 859.826 Intake: IV 3300 125 500 0.9 125 500 Intake, IV Titration 1487.502 374.826 Amount ACETAMINOPHEN IV (For NPO 100 ) 1,000 mg In Empty Bag 1 bag @ 400 mls/hr IVPB ONCE PRN Rx#:[id number] Fluconazole in NaCl,Iso- 50 Osm 100 mg In Saline 1 50ml.bag @ 50 mls/hr IVPB DAILY [facility] Rx#:[id number] Insulin Regular 100 unit 5.5 9.734 In Sodium Chloride 0.9% 100 ml @ Per Protocol IV .Q0M [facility] Rx#:[id number] Lactated Ringers 1,000 ml 875 @ 125 mls/hr IV .Q8H ONE Rx#:[id number] Magnesium Sulfate-D5w Pmx 200 1 gm In Dextrose/Water 1 100ml.bag @ 100 mls/hr IVPB Q1H [facility] Rx#: [id number] Norepinephrin 4 mg-0.9% 168.75 Ns Pmx 4 mg In 250 ml @ Titrate IV .Q0M [facility] Rx#: [id number] Piperacillin-Tazobactam 3 100 37.5 .375 gm In Dextrose/Water 1 50ml.bag @ 12.5 mls/hr IVPB Q8HR [facility] Rx#: [id number] Propofol 1,000 mg In 100 38.252 52.592 ml @ Titrate IV .Q0M [facility] Rx#:[id number] Sodium Chloride 0.9% 1, 125 000 ml @ 125 mls/hr IV . Q8H [facility] Rx#:[id number] metroNIDAZOLE-NS PMX 500 100 mg In Saline 1 100ml.bag @ 100 mls/hr IVPB Q8HR [facility] Rx#:[id number] Output: Drainage 0 0 Right Upper Abdomen 0 0 Urine 10 50 15 Estimated Blood Loss 200 Other: Voiding Method Indwelling Catheter Indwelling Catheter # Bowel Movements 2 Weight 84.822 kg 85.2 kg 85.2 kg Patient Weight 03/18/17 06:59 Weight 85.2 kg ABP, PAP, CO, CI - Last 8 Hours Arterial Blood Pressure 101/48 Arterial Blood Pressure 85/45 Arterial Blood Pressure 99/51 Arterial Blood Pressure 103/47 Arterial Blood Pressure 101/42 Arterial Blood Pressure 84/45 Arterial Blood Pressure 108/50 Arterial Blood Pressure 110/52 Arterial Blood Pressure 108/50 Arterial Blood Pressure 96/47 Arterial Blood Pressure 97/51 Arterial Blood Pressure 103/56 Arterial Blood Pressure 96/53 Arterial Blood Pressure 100/54 Arterial Blood Pressure 100/53 Arterial Blood Pressure 80/46 Patient is sedated, comfortable and tolerating the mechanical ventilator.Head exam was generally normal. There was no scleral icterus or corneal arcus. Mucous membranes were moist. Neck is supple and the patient has a right IJ triple-lumen catheter. The patient also has an orogastric and NG tube in place.Lungs were clear to auscultation and percussion, and with normal diaphragmatic excursion. No wheezes or rales were noted. Cardiac exam revealed the PMI to be normally situated and sized. The rhythm was regular and no extrasystoles were noted during several minutes of auscultation. The first and second heart sounds were normal and physiologic splitting of the second heart sound was noted. There were no murmurs, rubs, clicks, or gallops. Abdomen is soft. Bowel sounds are absent. There is a midabdominal large skin wound which is dry clean and intact and the patient has a right lower quadrant LOUISA drain in place. No ascites. Extremities show below-knee amputation on the right, 4 of the toes are missing in the left foot with diminished pulses at the obtained by Doppler signal. Neurologically the patient is sedated. He can withdraw to deep painful stimuli. Results - Laboratory Findings CBC and BMP: 03/17/17 04:20 03/17/17 04:20 ABG ABG pH 7.31 (7.35-7.45) L 03/17/17 04:39 ABG pCO2 27 mmHg (35-45) L 03/17/17 04:39 ABG pO2 198 mmHg (83-108) H 03/17/17 04:39 ABG O2 Saturation 100.0 % (94-97) H 03/17/17 04:39 PT/INR, D-dimer PT 10.4 sec (9.0-12.0) 03/16/17 16:30 INR 1.0 (<1.2) 03/16/17 16:30 Abnormal lab findings: Abnormal Labs 03/16/17 03/16/17 03/16/17 16:19 16:30 16:30 RBC Hgb Hct Lymphocytes # 0.6 L ABG pH ABG pCO2 ABG pO2 ABG HCO3 ABG Total CO2 ABG O2 Saturation ABG Hematocrit ABG Lactic Acid VBG pH VBG pCO2 VBG HCO3 Sodium Potassium Chloride Carbon Dioxide BUN Creatinine Glucose POC Glucose (mg/dL) 397 H Plasma Lactic Acid Mario Calcium Phosphorus AST Alkaline Phosphatase Total Creatine Kinase 216 H CK-MB (CK-2) 2.9 H* Troponin I 0.590 H* Total Protein Albumin Urine Protein Urine Glucose (UA) Urine Blood Urine RBC Amorphous Sediment Hyaline Casts 03/16/17 03/16/17 03/16/17 16:30 16:30 16:30 RBC Hgb Hct Lymphocytes # ABG pH ABG pCO2 ABG pO2 ABG HCO3 ABG Total CO2 ABG O2 Saturation ABG Hematocrit ABG Lactic Acid VBG pH 7.25 L VBG pCO2 29 L VBG HCO3 12 L Sodium 132 L Potassium 5.4 H Chloride Carbon Dioxide 9 L* BUN 108 H* Creatinine 5.90 H* Glucose 496 H* POC Glucose (mg/dL) Plasma Lactic Acid Mario 5.4 H* Calcium Phosphorus AST Alkaline Phosphatase Total Creatine Kinase CK-MB (CK-2) Troponin I Total Protein 5.5 L Albumin 2.9 L Urine Protein Urine Glucose (UA) Urine Blood Urine RBC Amorphous Sediment Hyaline Casts 03/16/17 03/16/17 03/16/17 19:00 21:12 22:42 RBC Hgb Hct Lymphocytes # ABG pH 7.19 L* ABG pCO2 ABG pO2 355 H ABG HCO3 13 L ABG Total CO2 ABG O2 Saturation 99.4 H ABG Hematocrit 29 L ABG Lactic Acid VBG pH VBG pCO2 VBG HCO3 Sodium Potassium Chloride Carbon Dioxide BUN Creatinine Glucose POC Glucose (mg/dL) Plasma Lactic Acid Mario 2.8 H* Calcium Phosphorus AST Alkaline Phosphatase Total Creatine Kinase CK-MB (CK-2) Troponin I Total Protein Albumin Urine Protein 1+ H Urine Glucose (UA) 1+ H Urine Blood Trace H Urine RBC 15 H Amorphous Sediment Occasional H Hyaline Casts 110 H 03/16/17 03/16/17 03/16/17 22:42 22:44 22:50 RBC 4.08 L Hgb 11.9 L Hct 38.0 L Lymphocytes # ABG pH 7.14 L* ABG pCO2 ABG pO2 332 H ABG HCO3 14 L ABG Total CO2 15 L ABG O2 Saturation 100.0 H ABG Hematocrit ABG Lactic Acid 2.8 H* VBG pH VBG pCO2 VBG HCO3 Sodium Potassium Chloride Carbon Dioxide BUN Creatinine Glucose POC Glucose (mg/dL) Plasma Lactic Acid Mario Calcium Phosphorus AST Alkaline Phosphatase Total Creatine Kinase CK-MB (CK-2) Troponin I Total Protein Albumin Urine Protein Urine Glucose (UA) Urine Blood Urine RBC Amorphous Sediment Hyaline Casts 03/16/17 03/16/17 03/17/17 22:50 23:03 01:47 RBC Hgb Hct Lymphocytes # ABG pH ABG pCO2 ABG pO2 ABG HCO3 ABG Total CO2 ABG O2 Saturation ABG Hematocrit ABG Lactic Acid VBG pH VBG pCO2 VBG HCO3 Sodium Potassium Chloride 109 H Carbon Dioxide 15 L BUN 95 H* Creatinine 4.90 H Glucose 309 H POC Glucose (mg/dL) 283 H 274 H Plasma Lactic Acid Mario Calcium 7.7 L Phosphorus 4.9 H AST 66 H Alkaline Phosphatase Total Creatine Kinase CK-MB (CK-2) Troponin I Total Protein 4.1 L Albumin 2.0 L Urine Protein Urine Glucose (UA) Urine Blood Urine RBC Amorphous Sediment Hyaline Casts 03/17/17 03/17/17 03/17/17 04:14 04:20 04:20 RBC 4.03 L Hgb 11.7 L Hct 37.0 L Lymphocytes # ABG pH ABG pCO2 ABG pO2 ABG HCO3 ABG Total CO2 ABG O2 Saturation ABG Hematocrit ABG Lactic Acid VBG pH VBG pCO2 VBG HCO3 Sodium 135 L Potassium Chloride 108 H Carbon Dioxide 12 L BUN 100 H* Creatinine 4.90 H Glucose 265 H POC Glucose (mg/dL) 266 H Plasma Lactic Acid Mario Calcium 7.6 L Phosphorus AST 69 H Alkaline Phosphatase 22 L Total Creatine Kinase CK-MB (CK-2) Troponin I Total Protein 4.1 L Albumin 1.9 L Urine Protein Urine Glucose (UA) Urine Blood Urine RBC Amorphous Sediment Hyaline Casts 03/17/17 03/17/17 03/17/17 04:20 04:39 05:10 RBC Hgb Hct Lymphocytes # ABG pH 7.31 L ABG pCO2 27 L ABG pO2 198 H ABG HCO3 13 L ABG Total CO2 14 L ABG O2 Saturation 100.0 H ABG Hematocrit ABG Lactic Acid 3.0 H* 2.7 H* VBG pH VBG pCO2 VBG HCO3 Sodium Potassium Chloride Carbon Dioxide BUN Creatinine Glucose POC Glucose (mg/dL) Plasma Lactic Acid Mario Calcium Phosphorus AST Alkaline Phosphatase Total Creatine Kinase CK-MB (CK-2) Troponin I Total Protein Albumin Urine Protein Urine Glucose (UA) Urine Blood Urine RBC Amorphous Sediment Hyaline Casts 03/17/17 03/17/17 03/17/17 05:16 06:08 07:04 RBC Hgb Hct Lymphocytes # ABG pH ABG pCO2 ABG pO2 ABG HCO3 ABG Total CO2 ABG O2 Saturation ABG Hematocrit ABG Lactic Acid VBG pH VBG pCO2 VBG HCO3 Sodium Potassium Chloride Carbon Dioxide BUN Creatinine Glucose POC Glucose (mg/dL) 235 H 217 H 169 H Plasma Lactic Acid Mario Calcium Phosphorus AST Alkaline Phosphatase Total Creatine Kinase CK-MB (CK-2) Troponin I Total Protein Albumin Urine Protein Urine Glucose (UA) Urine Blood Urine RBC Amorphous Sediment Hyaline Casts 03/17/17 03/17/17 03/17/17 07:58 09:05 10:11 RBC Hgb Hct Lymphocytes # ABG pH ABG pCO2 ABG pO2 ABG HCO3 ABG Total CO2 ABG O2 Saturation ABG Hematocrit ABG Lactic Acid VBG pH VBG pCO2 VBG HCO3 Sodium Potassium Chloride Carbon Dioxide BUN Creatinine Glucose POC Glucose (mg/dL) 152 H 147 H 134 H Plasma Lactic Acid Mario Calcium Phosphorus AST Alkaline Phosphatase Total Creatine Kinase CK-MB (CK-2) Troponin I Total Protein Albumin Urine Protein Urine Glucose (UA) Urine Blood Urine RBC Amorphous Sediment Hyaline Casts - Diagnostic Findings Chest x-ray: image reviewed Assessment and Plan Plan: Assessment 1 acute abdomen status post extra laparotomy and repair of a perforated peptic ulcer a modified Don patch and open cholecystectomy. Patient is postop day # 1. 2 shock likely septic in nature secondary to intra-abdominal sepsis complicated by perforated peptic ulcer and cholecystitis. Patient is on high dose pressors. The patient was resuscitated aggressively with IV fluids and received a total of 7 L of IV fluids since arrival from the operating room. 3 hypotension secondary to above still on pressors 4 sinus tachycardia, improving with fluid resuscitation 5 acute kidney injury on top of chronic renal failure. The patient has stage II kidney disease at baseline due to diabetic nephropathy. Acute kidney injury related to hypotension/sepsis due to ATN. Patient is oliguric at this point. 6 acute lactic acidosis him a improving 7 diabetes mellitus with poorly controlled blood sugar secondary to sepsis currently on insulin drip for blood sugar control. 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 Plan Continue vent support and increase the baseline respiratory rate up to 24. Wean down the FiO2 tolerate a saturation above 90%. Meanwhile, keep the patient stated with Diprivan. No plans for weaning her extubation today. Patient remains hemodynamically stable. We'll give additional 2 L of IV fluids. Will hopefully improve urine output. Gradually wean off the pressors and discontinue if possible to keep a mean arterial pressure above 65. Into the Zosyn, Flagyl and Diflucan combination. Insulin drip for blood sugar control. Keep the orogastric tube in place. Monitor the output from the NG. Heparin subcu for DVT prophylaxis. IV Protonix for GI prophylaxis. ID consultation. General surgeries on the case. We'll continue to follow make further recommendations based on his overall progress. Time with Patient: Greater than 30
[2017-03-17 12:10] LABS: Glucose,Whole Blood 132 mg/dL (75-99)
[2017-03-17] MEDS ORDERED: SODIUM CHLORIDE 0.9% 1,000 ML IV ONE (12:16)
[2017-03-17 12:18] LABS: Hemoglobin A1C 7.7 % (4.2-6.1)
[2017-03-17 13:03] LABS: Glucose,Whole Blood 147 mg/dL (75-99)
[2017-03-17 14:12] LABS: Glucose,Whole Blood 150 mg/dL (75-99)
--- NOTE | 2017-03-17 14:15 | P.PN ---
Subjective Principal diagnosis: Perforated peptic ulcer Patient remains on the ventilator. Aggressive fluid resuscitation took place overnight. Acidosis is improved. Remains on pressors. Urine output remains marginal. LOUISA drain is serosanguineous. Nasogastric tube is bilious. Objective - Vital Signs Vital signs: Vital Signs Temp 98.1 F 03/17/17 12:00 Pulse 128 H 03/17/17 14:00 Resp 30 H 03/17/17 14:00 BP 127/62 03/17/17 13:00 Pulse Ox 99 03/17/17 14:00 Intake & Output 03/16/17 03/17/17 03/17/17 18:59 06:59 18:59 Intake Total 4912.502 3262.326 Output Total 260 23 Balance 4652.502 3239.326 Weight 84.822 kg 85.2 kg 85.2 kg Intake: IV 3425 875 0.9 125 875 Intake, IV Titration 1579.456 3846.326 Amount ACETAMINOPHEN IV (For NPO 100 ) 1,000 mg In Empty Bag 1 bag @ 400 mls/hr IVPB ONCE PRN Rx#:[id number] Fluconazole in NaCl,Iso- 50 Osm 100 mg In Saline 1 50ml.bag @ 50 mls/hr IVPB DAILY [facility] Rx#:[id number] Insulin Regular 100 unit 5.5 9.734 In Sodium Chloride 0.9% 100 ml @ Per Protocol IV .Q0M [facility] Rx#:[id number] Lactated Ringers 1,000 ml 875 @ 125 mls/hr IV .Q8H [facility] Rx#:[id number] Magnesium Sulfate-D5w Pmx 200 1 gm In Dextrose/Water 1 100ml.bag @ 100 mls/hr IVPB Q1H [facility] Rx#: [id number] Norepinephrin 4 mg-0.9% 168.75 Ns Pmx 4 mg In 250 ml @ Titrate IV .Q0M [facility] Rx#: [id number] Piperacillin-Tazobactam 3 100 50.0 .375 gm In Dextrose/Water 1 50ml.bag @ 12.5 mls/hr IVPB Q8HR [facility] Rx#: [id number] Propofol 1,000 mg In 100 38.252 52.592 ml @ Titrate IV .Q0M [facility] Rx#:[id number] Sodium Chloride 0.9% 1, 125 000 ml @ 125 mls/hr IV . Q8H [facility] Rx#:[id number] Sodium Chloride 0.9% 1, 1000 000 ml @ 999 mls/hr IV . Q1H1M [facility] Rx#:[id number] Sodium Chloride 0.9% 1, 1000 000 ml @ 999 mls/hr IV . Q1H1M [facility] Rx#:[id number] metroNIDAZOLE-NS PMX 500 100 mg In Saline 1 100ml.bag @ 100 mls/hr IVPB Q8HR [facility] Rx#:[id number] Output: Drainage 0 0 Right Upper Abdomen 0 0 Urine 60 23 Estimated Blood Loss 200 Other: Voiding Method Indwelling Catheter Indwelling Catheter # Bowel Movements 2 ABP, PAP, CO, CI - Last Documented Arterial Blood Pressure 94/49 - Exam Abdomen: Soft, distended, dressing intact - Labs CBC & Chem 7: 03/17/17 04:20 03/17/17 04:20 Labs: Abnormal Lab Results - Last 24 Hours (Table) 03/16/17 03/16/17 03/16/17 Range/Units 16:19 16:30 16:30 RBC (4.30-5.90) m/uL Hgb (13.0-17.5) gm/dL Hct (39.0-53.0) % Lymphocytes # 0.6 L (1.0-4.8) k/uL ABG pH (7.35-7.45) ABG pCO2 (35-45) mmHg ABG pO2 (83-108) mmHg ABG HCO3 (21-25) mmol/L ABG Total CO2 (19-24) mmol/L ABG O2 Saturation (94-97) % ABG Hematocrit (34.0-46.0) % ABG Lactic Acid (0.5-1.6) mmol/L VBG pH (7.31-7.41) VBG pCO2 (37-51) mmHg VBG HCO3 (24-28) mmol/L Sodium (137-145) mmol/L Potassium (3.5-5.1) mmol/L Chloride (98-107) mmol/L Carbon Dioxide (22-30) mmol/L BUN (9-20) mg/dL Creatinine (0.66-1.25) mg/dL Glucose (74-99) mg/dL POC Glucose (mg/dL) 397 H (75-99) mg/dL Hemoglobin A1c (4.2-6.1) % Plasma Lactic Acid Mario (0.7-2.0) mmol/L Calcium (8.4-10.2) mg/dL Phosphorus (2.5-4.5) mg/dL AST (17-59) U/L Alkaline Phosphatase (38-126) U/L Total Creatine Kinase 216 H (55-170) U/L CK-MB (CK-2) 2.9 H* (0.0-2.4) ng/mL Troponin I 0.590 H* (0.000-0.034) ng/mL Total Protein (6.3-8.2) g/dL Albumin (3.5-5.0) g/dL Urine Protein (Negative) Urine Glucose (UA) (Negative) Urine Blood (Negative) Urine RBC (0-5) /hpf Amorphous Sediment (None) /hpf Hyaline Casts (0-2) /lpf 03/16/17 03/16/17 03/16/17 Range/Units 16:30 16:30 16:30 RBC (4.30-5.90) m/uL Hgb (13.0-17.5) gm/dL Hct (39.0-53.0) % Lymphocytes # (1.0-4.8) k/uL ABG pH (7.35-7.45) ABG pCO2 (35-45) mmHg ABG pO2 (83-108) mmHg ABG HCO3 (21-25) mmol/L ABG Total CO2 (19-24) mmol/L ABG O2 Saturation (94-97) % ABG Hematocrit (34.0-46.0) % ABG Lactic Acid (0.5-1.6) mmol/L VBG pH 7.25 L (7.31-7.41) VBG pCO2 29 L (37-51) mmHg VBG HCO3 12 L (24-28) mmol/L Sodium 132 L (137-145) mmol/L Potassium 5.4 H (3.5-5.1) mmol/L Chloride (98-107) mmol/L Carbon Dioxide 9 L* (22-30) mmol/L BUN 108 H* (9-20) mg/dL Creatinine 5.90 H* (0.66-1.25) mg/dL Glucose 496 H* (74-99) mg/dL POC Glucose (mg/dL) (75-99) mg/dL Hemoglobin A1c (4.2-6.1) % Plasma Lactic Acid Mario 5.4 H* (0.7-2.0) mmol/L Calcium (8.4-10.2) mg/dL Phosphorus (2.5-4.5) mg/dL AST (17-59) U/L Alkaline Phosphatase (38-126) U/L Total Creatine Kinase (55-170) U/L CK-MB (CK-2) (0.0-2.4) ng/mL Troponin I (0.000-0.034) ng/mL Total Protein 5.5 L (6.3-8.2) g/dL Albumin 2.9 L (3.5-5.0) g/dL Urine Protein (Negative) Urine Glucose (UA) (Negative) Urine Blood (Negative) Urine RBC (0-5) /hpf Amorphous Sediment (None) /hpf Hyaline Casts (0-2) /lpf 03/16/17 03/16/17 03/16/17 Range/Units 19:00 21:12 22:42 RBC (4.30-5.90) m/uL Hgb (13.0-17.5) gm/dL Hct (39.0-53.0) % Lymphocytes # (1.0-4.8) k/uL ABG pH 7.19 L* (7.35-7.45) ABG pCO2 (35-45) mmHg ABG pO2 355 H (83-108) mmHg ABG HCO3 13 L (21-25) mmol/L ABG Total CO2 (19-24) mmol/L ABG O2 Saturation 99.4 H (94-97) % ABG Hematocrit 29 L (34.0-46.0) % ABG Lactic Acid (0.5-1.6) mmol/L VBG pH (7.31-7.41) VBG pCO2 (37-51) mmHg VBG HCO3 (24-28) mmol/L Sodium (137-145) mmol/L Potassium (3.5-5.1) mmol/L Chloride (98-107) mmol/L Carbon Dioxide (22-30) mmol/L BUN (9-20) mg/dL Creatinine (0.66-1.25) mg/dL Glucose (74-99) mg/dL POC Glucose (mg/dL) (75-99) mg/dL Hemoglobin A1c (4.2-6.1) % Plasma Lactic Acid Mario 2.8 H* (0.7-2.0) mmol/L Calcium (8.4-10.2) mg/dL Phosphorus (2.5-4.5) mg/dL AST (17-59) U/L Alkaline Phosphatase (38-126) U/L Total Creatine Kinase (55-170) U/L CK-MB (CK-2) (0.0-2.4) ng/mL Troponin I (0.000-0.034) ng/mL Total Protein (6.3-8.2) g/dL Albumin (3.5-5.0) g/dL Urine Protein 1+ H (Negative) Urine Glucose (UA) 1+ H (Negative) Urine Blood Trace H (Negative) Urine RBC 15 H (0-5) /hpf Amorphous Sediment Occasional H (None) /hpf Hyaline Casts 110 H (0-2) /lpf 03/16/17 03/16/17 03/16/17 Range/Units 22:42 22:44 22:50 RBC 4.08 L (4.30-5.90) m/uL Hgb 11.9 L (13.0-17.5) gm/dL Hct 38.0 L (39.0-53.0) % Lymphocytes # (1.0-4.8) k/uL ABG pH 7.14 L* (7.35-7.45) ABG pCO2 (35-45) mmHg ABG pO2 332 H (83-108) mmHg ABG HCO3 14 L (21-25) mmol/L ABG Total CO2 15 L (19-24) mmol/L ABG O2 Saturation 100.0 H (94-97) % ABG Hematocrit (34.0-46.0) % ABG Lactic Acid 2.8 H* (0.5-1.6) mmol/L VBG pH (7.31-7.41) VBG pCO2 (37-51) mmHg VBG HCO3 (24-28) mmol/L Sodium (137-145) mmol/L Potassium (3.5-5.1) mmol/L Chloride (98-107) mmol/L Carbon Dioxide (22-30) mmol/L BUN (9-20) mg/dL Creatinine (0.66-1.25) mg/dL Glucose (74-99) mg/dL POC Glucose (mg/dL) (75-99) mg/dL Hemoglobin A1c (4.2-6.1) % Plasma Lactic Acid Mario (0.7-2.0) mmol/L Calcium (8.4-10.2) mg/dL Phosphorus (2.5-4.5) mg/dL AST (17-59) U/L Alkaline Phosphatase (38-126) U/L Total Creatine Kinase (55-170) U/L CK-MB (CK-2) (0.0-2.4) ng/mL Troponin I (0.000-0.034) ng/mL Total Protein (6.3-8.2) g/dL Albumin (3.5-5.0) g/dL Urine Protein (Negative) Urine Glucose (UA) (Negative) Urine Blood (Negative) Urine RBC (0-5) /hpf Amorphous Sediment (None) /hpf Hyaline Casts (0-2) /lpf 03/16/17 03/16/17 03/17/17 Range/Units 22:50 23:03 01:47 RBC (4.30-5.90) m/uL Hgb (13.0-17.5) gm/dL Hct (39.0-53.0) % Lymphocytes # (1.0-4.8) k/uL ABG pH (7.35-7.45) ABG pCO2 (35-45) mmHg ABG pO2 (83-108) mmHg ABG HCO3 (21-25) mmol/L ABG Total CO2 (19-24) mmol/L ABG O2 Saturation (94-97) % ABG Hematocrit (34.0-46.0) % ABG Lactic Acid (0.5-1.6) mmol/L VBG pH (7.31-7.41) VBG pCO2 (37-51) mmHg VBG HCO3 (24-28) mmol/L Sodium (137-145) mmol/L Potassium (3.5-5.1) mmol/L Chloride 109 H (98-107) mmol/L Carbon Dioxide 15 L (22-30) mmol/L BUN 95 H* (9-20) mg/dL Creatinine 4.90 H (0.66-1.25) mg/dL Glucose 309 H (74-99) mg/dL POC Glucose (mg/dL) 283 H 274 H (75-99) mg/dL Hemoglobin A1c (4.2-6.1) % Plasma Lactic Acid Mario (0.7-2.0) mmol/L Calcium 7.7 L (8.4-10.2) mg/dL Phosphorus 4.9 H (2.5-4.5) mg/dL AST 66 H (17-59) U/L Alkaline Phosphatase (38-126) U/L Total Creatine Kinase (55-170) U/L CK-MB (CK-2) (0.0-2.4) ng/mL Troponin I (0.000-0.034) ng/mL Total Protein 4.1 L (6.3-8.2) g/dL Albumin 2.0 L (3.5-5.0) g/dL Urine Protein (Negative) Urine Glucose (UA) (Negative) Urine Blood (Negative) Urine RBC (0-5) /hpf Amorphous Sediment (None) /hpf Hyaline Casts (0-2) /lpf 03/17/17 03/17/17 03/17/17 Range/Units 04:14 04:20 04:20 RBC 4.03 L (4.30-5.90) m/uL Hgb 11.7 L (13.0-17.5) gm/dL Hct 37.0 L (39.0-53.0) % Lymphocytes # (1.0-4.8) k/uL ABG pH (7.35-7.45) ABG pCO2 (35-45) mmHg ABG pO2 (83-108) mmHg ABG HCO3 (21-25) mmol/L ABG Total CO2 (19-24) mmol/L ABG O2 Saturation (94-97) % ABG Hematocrit (34.0-46.0) % ABG Lactic Acid (0.5-1.6) mmol/L VBG pH (7.31-7.41) VBG pCO2 (37-51) mmHg VBG HCO3 (24-28) mmol/L Sodium 135 L (137-145) mmol/L Potassium (3.5-5.1) mmol/L Chloride 108 H (98-107) mmol/L Carbon Dioxide 12 L (22-30) mmol/L BUN 100 H* (9-20) mg/dL Creatinine 4.90 H (0.66-1.25) mg/dL Glucose 265 H (74-99) mg/dL POC Glucose (mg/dL) 266 H (75-99) mg/dL Hemoglobin A1c (4.2-6.1) % Plasma Lactic Acid Mario (0.7-2.0) mmol/L Calcium 7.6 L (8.4-10.2) mg/dL Phosphorus (2.5-4.5) mg/dL AST 69 H (17-59) U/L Alkaline Phosphatase 22 L (38-126) U/L Total Creatine Kinase (55-170) U/L CK-MB (CK-2) (0.0-2.4) ng/mL Troponin I (0.000-0.034) ng/mL Total Protein 4.1 L (6.3-8.2) g/dL Albumin 1.9 L (3.5-5.0) g/dL Urine Protein (Negative) Urine Glucose (UA) (Negative) Urine Blood (Negative) Urine RBC (0-5) /hpf Amorphous Sediment (None) /hpf Hyaline Casts (0-2) /lpf 03/17/17 03/17/17 03/17/17 Range/Units 04:20 04:20 04:39 RBC (4.30-5.90) m/uL Hgb (13.0-17.5) gm/dL Hct (39.0-53.0) % Lymphocytes # (1.0-4.8) k/uL ABG pH 7.31 L (7.35-7.45) ABG pCO2 27 L (35-45) mmHg ABG pO2 198 H (83-108) mmHg ABG HCO3 13 L (21-25) mmol/L ABG Total CO2 14 L (19-24) mmol/L ABG O2 Saturation 100.0 H (94-97) % ABG Hematocrit (34.0-46.0) % ABG Lactic Acid 3.0 H* (0.5-1.6) mmol/L VBG pH (7.31-7.41) VBG pCO2 (37-51) mmHg VBG HCO3 (24-28) mmol/L Sodium (137-145) mmol/L Potassium (3.5-5.1) mmol/L Chloride (98-107) mmol/L Carbon Dioxide (22-30) mmol/L BUN (9-20) mg/dL Creatinine (0.66-1.25) mg/dL Glucose (74-99) mg/dL POC Glucose (mg/dL) (75-99) mg/dL Hemoglobin A1c 7.7 H (4.2-6.1) % Plasma Lactic Acid Mario (0.7-2.0) mmol/L Calcium (8.4-10.2) mg/dL Phosphorus (2.5-4.5) mg/dL AST (17-59) U/L Alkaline Phosphatase (38-126) U/L Total Creatine Kinase (55-170) U/L CK-MB (CK-2) (0.0-2.4) ng/mL Troponin I (0.000-0.034) ng/mL Total Protein (6.3-8.2) g/dL Albumin (3.5-5.0) g/dL Urine Protein (Negative) Urine Glucose (UA) (Negative) Urine Blood (Negative) Urine RBC (0-5) /hpf Amorphous Sediment (None) /hpf Hyaline Casts (0-2) /lpf 03/17/17 03/17/17 03/17/17 Range/Units 05:10 05:16 06:08 RBC (4.30-5.90) m/uL Hgb (13.0-17.5) gm/dL Hct (39.0-53.0) % Lymphocytes # (1.0-4.8) k/uL ABG pH (7.35-7.45) ABG pCO2 (35-45) mmHg ABG pO2 (83-108) mmHg ABG HCO3 (21-25) mmol/L ABG Total CO2 (19-24) mmol/L ABG O2 Saturation (94-97) % ABG Hematocrit (34.0-46.0) % ABG Lactic Acid 2.7 H* (0.5-1.6) mmol/L VBG pH (7.31-7.41) VBG pCO2 (37-51) mmHg VBG HCO3 (24-28) mmol/L Sodium (137-145) mmol/L Potassium (3.5-5.1) mmol/L Chloride (98-107) mmol/L Carbon Dioxide (22-30) mmol/L BUN (9-20) mg/dL Creatinine (0.66-1.25) mg/dL Glucose (74-99) mg/dL POC Glucose (mg/dL) 235 H 217 H (75-99) mg/dL Hemoglobin A1c (4.2-6.1) % Plasma Lactic Acid Mario (0.7-2.0) mmol/L Calcium (8.4-10.2) mg/dL Phosphorus (2.5-4.5) mg/dL AST (17-59) U/L Alkaline Phosphatase (38-126) U/L Total Creatine Kinase (55-170) U/L CK-MB (CK-2) (0.0-2.4) ng/mL Troponin I (0.000-0.034) ng/mL Total Protein (6.3-8.2) g/dL Albumin (3.5-5.0) g/dL Urine Protein (Negative) Urine Glucose (UA) (Negative) Urine Blood (Negative) Urine RBC (0-5) /hpf Amorphous Sediment (None) /hpf Hyaline Casts (0-2) /lpf 03/17/17 03/17/17 03/17/17 Range/Units 07:04 07:58 09:05 RBC (4.30-5.90) m/uL Hgb (13.0-17.5) gm/dL Hct (39.0-53.0) % Lymphocytes # (1.0-4.8) k/uL ABG pH (7.35-7.45) ABG pCO2 (35-45) mmHg ABG pO2 (83-108) mmHg ABG HCO3 (21-25) mmol/L ABG Total CO2 (19-24) mmol/L ABG O2 Saturation (94-97) % ABG Hematocrit (34.0-46.0) % ABG Lactic Acid (0.5-1.6) mmol/L VBG pH (7.31-7.41) VBG pCO2 (37-51) mmHg VBG HCO3 (24-28) mmol/L Sodium (137-145) mmol/L Potassium (3.5-5.1) mmol/L Chloride (98-107) mmol/L Carbon Dioxide (22-30) mmol/L BUN (9-20) mg/dL Creatinine (0.66-1.25) mg/dL Glucose (74-99) mg/dL POC Glucose (mg/dL) 169 H 152 H 147 H (75-99) mg/dL Hemoglobin A1c (4.2-6.1) % Plasma Lactic Acid Mario (0.7-2.0) mmol/L Calcium (8.4-10.2) mg/dL Phosphorus (2.5-4.5) mg/dL AST (17-59) U/L Alkaline Phosphatase (38-126) U/L Total Creatine Kinase (55-170) U/L CK-MB (CK-2) (0.0-2.4) ng/mL Troponin I (0.000-0.034) ng/mL Total Protein (6.3-8.2) g/dL Albumin (3.5-5.0) g/dL Urine Protein (Negative) Urine Glucose (UA) (Negative) Urine Blood (Negative) Urine RBC (0-5) /hpf Amorphous Sediment (None) /hpf Hyaline Casts (0-2) /lpf 03/17/17 03/17/17 03/17/17 Range/Units 10:11 12:08 13:01 RBC (4.30-5.90) m/uL Hgb (13.0-17.5) gm/dL Hct (39.0-53.0) % Lymphocytes # (1.0-4.8) k/uL ABG pH (7.35-7.45) ABG pCO2 (35-45) mmHg ABG pO2 (83-108) mmHg ABG HCO3 (21-25) mmol/L ABG Total CO2 (19-24) mmol/L ABG O2 Saturation (94-97) % ABG Hematocrit (34.0-46.0) % ABG Lactic Acid (0.5-1.6) mmol/L VBG pH (7.31-7.41) VBG pCO2 (37-51) mmHg VBG HCO3 (24-28) mmol/L Sodium (137-145) mmol/L Potassium (3.5-5.1) mmol/L Chloride (98-107) mmol/L Carbon Dioxide (22-30) mmol/L BUN (9-20) mg/dL Creatinine (0.66-1.25) mg/dL Glucose (74-99) mg/dL POC Glucose (mg/dL) 134 H 132 H 147 H (75-99) mg/dL Hemoglobin A1c (4.2-6.1) % Plasma Lactic Acid Mario (0.7-2.0) mmol/L Calcium (8.4-10.2) mg/dL Phosphorus (2.5-4.5) mg/dL AST (17-59) U/L Alkaline Phosphatase (38-126) U/L Total Creatine Kinase (55-170) U/L CK-MB (CK-2) (0.0-2.4) ng/mL Troponin I (0.000-0.034) ng/mL Total Protein (6.3-8.2) g/dL Albumin (3.5-5.0) g/dL Urine Protein (Negative) Urine Glucose (UA) (Negative) Urine Blood (Negative) Urine RBC (0-5) /hpf Amorphous Sediment (None) /hpf Hyaline Casts (0-2) /lpf 03/17/17 Range/Units 14:09 RBC (4.30-5.90) m/uL Hgb (13.0-17.5) gm/dL Hct (39.0-53.0) % Lymphocytes # (1.0-4.8) k/uL ABG pH (7.35-7.45) ABG pCO2 (35-45) mmHg ABG pO2 (83-108) mmHg ABG HCO3 (21-25) mmol/L ABG Total CO2 (19-24) mmol/L ABG O2 Saturation (94-97) % ABG Hematocrit (34.0-46.0) % ABG Lactic Acid (0.5-1.6) mmol/L VBG pH (7.31-7.41) VBG pCO2 (37-51) mmHg VBG HCO3 (24-28) mmol/L Sodium (137-145) mmol/L Potassium (3.5-5.1) mmol/L Chloride (98-107) mmol/L Carbon Dioxide (22-30) mmol/L BUN (9-20) mg/dL Creatinine (0.66-1.25) mg/dL Glucose (74-99) mg/dL POC Glucose (mg/dL) 150 H (75-99) mg/dL Hemoglobin A1c (4.2-6.1) % Plasma Lactic Acid Mario (0.7-2.0) mmol/L Calcium (8.4-10.2) mg/dL Phosphorus (2.5-4.5) mg/dL AST (17-59) U/L Alkaline Phosphatase (38-126) U/L Total Creatine Kinase (55-170) U/L CK-MB (CK-2) (0.0-2.4) ng/mL Troponin I (0.000-0.034) ng/mL Total Protein (6.3-8.2) g/dL Albumin (3.5-5.0) g/dL Urine Protein (Negative) Urine Glucose (UA) (Negative) Urine Blood (Negative) Urine RBC (0-5) /hpf Amorphous Sediment (None) /hpf Hyaline Casts (0-2) /lpf Microbiology - Last 24 Hours (Table) 03/16/17 19:00 Urine Culture - Preliminary Urine,Voided Assessment and Plan (1) Free intraperitoneal air Narrative/Plan: Keep nothing by mouth with nasogastric tube to suction. Continue antiacid therapy. Will follow. Status: Acute
[2017-03-17 15:16] LABS: Glucose,Whole Blood 152 mg/dL (75-99)
[2017-03-17 16:09] LABS: Glucose,Whole Blood 160 mg/dL (75-99)
[2017-03-17 17:20] LABS: Glucose,Whole Blood 157 mg/dL (75-99)
[2017-03-17 18:21] LABS: Glucose,Whole Blood 178 mg/dL (75-99)
[2017-03-17] MEDS ORDERED: ALBUMIN HUMAN 5% 500 ML in EMPTY BAG 1 BAG IVPB ONE (18:30)
[2017-03-17] MEDS: ALBUMIN HUMAN 5% 500 ML in EMPTY BAG 1 BAG IVPB ONE ×2 (18:58→20:22)
[2017-03-17 19:11] LABS: Glucose,Whole Blood 174 mg/dL (75-99)
--- NOTE | 2017-03-17 19:21 | P.CON ---
Consult Note - . 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 [facility] most recently under the care of Dr. Gordon and discharged in August 2016 after a dehiscence of the right below the knee wound healed. Patient presented to [facility] emergency center on March 16 with generalized weakness and abdominal pain for at least couple days up to 1 week with concerns for constipation and was taking laxatives with no improvement. Patient also had decreased appetite and pain was gradually worsening. There was nausea without vomiting. Chest x-ray showed pneumoperitoneum and left basilar atelectasis with no heart failure. Abdominal films also showed pneumoperitoneum. CAT scan of the abdomen and pelvis without contrast and was found have a large pneumoperitoneum, large ascites, large nonobstructive right renal calculi and possible gallbladder thickening with concern for gangrenous gallbladder. Patient was taken to the OR by Dr. Wiley for exploratory laparotomy with repair of perforated peptic ulcer and open cholecystectomy. Patient was then transferred to the intensive care unit where he remains intubated and on mechanical ventilation. Patient presented with severe sepsis and septic shock status post 7 1/2 liters of fluid currently on levo at 20 mics. He did not have a urine output for the day shift thus far. O2 needs have decreased however. He is currently on IV antimicrobials in the form of fluconazole, Flagyl and Zosyn. Blood cultures status received and urine culture status received. C. difficile toxin was negative. Patient is noted to have a stage II decubitus ulcer on his buttocks that was present on admission. Please see the consult note is dictated by nurse practitioner Shawanda Canela. 66-year-old male with multiple medical troubles with left toe amputations and right below-knee amputation due to his severe peripheral vascular disease. Now presents with a significant bout of sepsis from the abdomen. Has evidence of pneumoperitoneum. Perforated gastric ulcer was noted. As well as gangrenous cholecystitis. He's had the surgical incision is noted. Remains profoundly ill with septic shock. For sepsis from the abdominal source in the condition of the perforation and gangrenous cholecystitis continue with antifungal therapy with fluconazole. Piperacillin tazobactam is being dosed per his renal failure. Has a history of MRSA as well as VRE infection. With this daptomycin will be initiated with dosing based on his current renal failure. Prognosis is very poor. I agree with the evaluation, assessment and plan as dictated by nurse practitioner Mrs. Shawanda Canela.
[2017-03-17] MEDS: HYDROmorphone 1 MG/ML 1 ML SYRINGE IVP PRN ×2 (20:21→23:37)
[2017-03-17 20:30] LABS: Glucose,Whole Blood 145 mg/dL (75-99)
[2017-03-17 21:15] LABS: Glucose,Whole Blood 160 mg/dL (75-99)
[2017-03-17] MEDS: PIPERACILLIN-TAZOBACTAM 3.375 GM in DEXTROSE/WATER 1 50ML.BAG IVPB SCH (21:54)
[2017-03-17 22:20] LABS: Glucose,Whole Blood 173 mg/dL (75-99)
[2017-03-17 22:39] LABS: Ionized Calcium 4.6 mg/dL (4.5-5.3)
[2017-03-17 22:52] LABS: Magnesium 1.8 mg/dL (1.6-2.3); Phosphorous 3.8 mg/dL (2.5-4.5)
[2017-03-17 23:31] LABS: Glucose,Whole Blood 170 mg/dL (75-99)
[2017-03-17 23:58] LABS: Glucose,Whole Blood 149 mg/dL (75-99)
[2017-03-18] MEDS ORDERED: INSULIN LISPRO (humaLOG) 300 UNIT/3 ML VIAL SQ SCH
[2017-03-18] MEDS: MAGNESIUM SULFATE-D5W PMX 1 GM in DEXTROSE/WATER 1 100ML.BAG IVPB SCH (00:51)
[2017-03-18 01:05] LABS: Glucose,Whole Blood 146 mg/dL (75-99)
[2017-03-18 02:27] LABS: Glucose,Whole Blood 138 mg/dL (75-99)
[2017-03-18] MEDS: HYDROmorphone 1 MG/ML 1 ML SYRINGE IVP PRN ×2 (02:29→05:31)
[2017-03-18] MEDS: PROPOFOL 1,000 MG/100 ML VIAL IV SCH ×4 (02:31→13:59)
[2017-03-18 03:03] LABS: Glucose,Whole Blood 157 mg/dL (75-99)
[2017-03-18] MEDS: IPRATROPIUM-ALBUTEROL 3 ML NEB INHALATION SCH ×6 (03:22→23:15)
[2017-03-18 04:16] LABS: Glucose,Whole Blood 135 mg/dL (75-99)
[2017-03-18 05:33] LABS: ABG Base Excess -12.4 mmol/L; ABG HCO3 12 mmol/L (21-25); ABG PCO2 30 mmHg (35-45); ABG PH 7.26 (7.35-7.45); ABG PO2 155 mmHg (83-108); ABG TCO2 14 mmol/L (19-24)
[2017-03-18 06:06] LABS: Glucose,Whole Blood 135 mg/dL (75-99)
[2017-03-18 06:12] LABS: Basophils % (A) 0 %; CH 29.5; CHCM 32.2; Eosinophils % (A) 0 %; HCT 29.4 % (39.0-53.0); HDW 2.82; HGB 9.3 gm/dL (13.0-17.5); Luc % (Auto) 1; Lymphocytes % (A) 9 %; MCHC 31.5 g/dL (31.0-37.0); MCV 92.1 fL (80.0-100.0); Mean Platelet Volume 9.7; Monocytes # (A) 0.3 k/uL (0-1.0); Monocytes % (A) 2 %; Neutrophils # (A) 10.1 k/uL (1.3-7.7); Neutrophils % (A) 88 %; RBC 3.19 m/uL (4.30-5.90); RDW 14.9 % (11.5-15.5); WBC 11.5 k/uL (3.8-10.6); WBC (Perox) 12.03
[2017-03-18 06:20] LABS: Calcium 7.1 mg/dL (8.4-10.2); Magnesium 2.4 mg/dL (1.6-2.3); Phosphorous 3.2 mg/dL (2.5-4.5); Potassium 3.6 mmol/L (3.5-5.1)
[2017-03-18 06:58] LABS: Glucose,Whole Blood 126 mg/dL (75-99)
[2017-03-18] MEDS: SODIUM CHLORIDE 0.9% 1,000 ML IV SCH ×3 (07:44→22:26)
[2017-03-18] MEDS: POTASSIUM CHLORIDE 10 MEQ, LIDOCAINE 2% INJ 10 MG in SODIUM CHLORIDE 0.9% 100 ML IV SCH ×2 (07:49→09:03)
[2017-03-18] MEDS: metroNIDAZOLE-NS PMX 500 MG in SALINE 1 100ML.BAG IVPB SCH ×3 (07:53→23:34)
--- NOTE | 2017-03-18 07:55 | XR ---
EXAMINATION TYPE: XR chest 1V DATE OF EXAM: 03/18/2017 COMPARISON: NONE HISTORY: Shortness of breath TECHNIQUE: Single frontal view of the chest is obtained. FINDINGS: ET and NG tube stable. [place] catheter noted. Bilateral infiltrate and pleural effusion are stable. No sizable pneumothorax. Arthropathy of the left shoulder seen. IMPRESSION: 1. Basilar atelectasis or infiltrate with small effusion stable. 2. Prominence the left hilar region may be related to chamber enlargement. When the patient's conditi on allows standard PA and lateral views of the chest recommended.
[2017-03-18 08:04] LABS: Glucose,Whole Blood 129 mg/dL (75-99)
--- NOTE | 2017-03-18 08:49 | P.PN ---
Subjective A 66-year-old male patient who came into the intensive care unit after undergoing expiratory laparotomy and repair of a perforated peptic ulcer with a modified Don patch and open cholecystectomy. Surgery was done last night and the patient was brought into the intensive care unit intubated on a mechanical ventilator. According to the reported history the patient was having 3-4 days history of a vague abdominal pain. This being gradually got worse. The patient was also having constipation. He had some nausea without vomiting. Appetite was diminished. No bright red blood per rectum. The pain was mainly over the central abdomen. No history of any peptic ulcer disease or diverticular disease. The x-ray of the abdomen in the emergency department showed pneumoperitoneum and the CAT scan confirmed the presence of a large volume of free air. The gallbladder was also thickened. The majority of the air was in the upper abdomen. Intraoperatively, the patient was found to have a perforated peptic ulcer and a gangrenous gallbladder. The patient is currently in the intensive care unit. The patient has received a total of 7 L of IV fluids. He has chronic renal failure and had developed acute kidney injury on top of chronic renal insufficiency and currently is oliguric producing only 5-10 mL an hour of urine output. The patient is intubated on a mechanical ventilator. The patient on assist control mode at the rate of 10, tidal volume 450, FiO2 of 40% and a PEEP of 5. His blood. From this morning showed a pH of 7.31 with a pCO2 of 27 and pO2 of 198 and based on that the FiO2 was weaned down. Chest x-ray shows no pneumothorax or pneumoperitoneum. ET tube is in a good location. Hemodynamically, the patient was doing poorly. He was in septic shock. He was tachycardic with a heart rate in the 1:30 range. This improved with fluid resuscitation his current heart rate is sinus at 110. He also was on higher doses of pressors and norepinephrine infusion was running at 25 mics and currently is down to 50 mics. He is covered with a combination of IV Zosyn, IV Diflucan and IV Flagyl. He is afebrile for now. Is sedated with Diprivan. He has a below-knee amputation on the right lower extremity and the feet on the left lower extremity shows marked diminished pulses at is obtainable by Doppler. Lactic acid level was 5.4 at time of admission is currently down to 2.7. He has a right IJ triple-lumen catheter. He has a right upper extremity radial art line. He also has a LOUISA drain in his right lower quadrant area. On 03/18/2017 I'm seeing this patient in the follow-up. The patient remains intubated on a mechanical ventilator. He remains an assist-control mode of ventilation at a tidal volume 450, rate of 24, FiO2 of 40% and a PEEP of 5. His blood gases from this morning showed a pH of 7.26 with a pCO2 of 30 and pO2 of 155. Chest x-ray from this morning shows small bilateral pleural effusions, ET tube is in a good location, NG tube is in a good location and there is no acute pulmonary infiltrates or consolidations. Hemodynamically, the patient is still pressor dependent at 15 mics. Overnight he had to be as high as 20 mics and then he got weaned again down to 15 g of norepinephrine infusion. Urine output is gradually improving. Over the past 12 hours he produced approximately 50 mL of urine output. The patient is still having intermittent renal function and the creatinine still elevated at 4.8 which is comparable to yesterday. Rest of the electrodes are within normal. The patient is still acidotic with a bicarb level of 13. He received a total of 3 L of normal saline and 2 A of 12.5 g of albumin. He is still on a combination of Zosyn, Flagyl and Diflucan. All of the cultures of been negative. He remains nothing by mouth. Surgical wound site is clean and intact. LOUISA drain is draining approximately 50 mL of serosanguineous material. Objective - Vital Signs Vital signs: Vital Signs Temp 98.6 F 03/18/17 04:00 Pulse 104 H 03/18/17 08:05 Resp 17 03/18/17 07:30 BP 104/59 03/17/17 20:30 Pulse Ox 100 03/18/17 07:30 Intake & Output 03/17/17 03/18/17 03/18/17 18:59 06:59 18:59 Intake Total 5012.812 3194.476 125 Output Total 43 477 10 Balance 4972.812 2717.476 115 Weight 85.2 kg 94.6 kg Intake: IV 1375 1500 125 0.9 1375 1500 125 Intake, IV Titration 3637.812 1694.476 Amount Albumin Human 5% 500 ml 1000 In Empty Bag 1 bag @ 250 mls/hr IVPB ONCE ONE Rx#: [id number] Fluconazole in NaCl,Iso- 50 Osm 100 mg In Saline 1 50ml.bag @ 50 mls/hr IVPB DAILY [facility] Rx#:[id number] Insulin Regular 100 unit 13.618 9.617 In Sodium Chloride 0.9% 100 ml @ Per Protocol IV .Q0M [facility] Rx#:[id number] Magnesium Sulfate-D5w Pmx 200 1 gm In Dextrose/Water 1 100ml.bag @ 100 mls/hr IVPB Q1H [facility] Rx#: [id number] Norepinephrin 16 mg-0.9% 133.438 98.207 Ns Pmx 16 mg In 250 ml @ Titrate IV .Q0M [facility] Rx#: [id number] Piperacillin-Tazobactam 3 12.5 50.0 .375 gm In Dextrose/Water 1 50ml.bag @ 12.5 mls/hr IVPB Q12HR [facility] Rx#: [id number] Piperacillin-Tazobactam 3 75.0 .375 gm In Dextrose/Water 1 50ml.bag @ 12.5 mls/hr IVPB Q8HR [facility] Rx#: [id number] Propofol 1,000 mg In 100 128.256 136.652 ml @ Titrate IV .Q0M [facility] Rx#:[id number] Sodium Chloride 0.9% 1, 125 000 ml @ 125 mls/hr IV . Q8H [facility] Rx#:[id number] Sodium Chloride 0.9% 1, 1000 000 ml @ 999 mls/hr IV . Q1H1M [facility] Rx#:[id number] Sodium Chloride 0.9% 1, 2000 000 ml @ 999 mls/hr IV . Q1H1M [facility] Rx#:[id number] metroNIDAZOLE-NS PMX 500 100 200 mg In Saline 1 100ml.bag @ 100 mls/hr IVPB Q8HR [facility] Rx#:[id number] Output: Gastric Drainage 200 Drainage 0 15 Right Upper Abdomen 0 15 Urine 43 262 10 Other: Voiding Method Indwelling Catheter Indwelling Catheter ABP, PAP, CO, CI - Last Documented Arterial Blood Pressure 118/42 - Exam Patient is sedated, comfortable and tolerating the mechanical ventilator.Head exam was generally normal. There was no scleral icterus or corneal arcus. Mucous membranes were moist. Neck is supple and the patient has a right IJ triple-lumen catheter. The patient also has an orogastric and NG tube in place.Lungs were clear to auscultation and percussion, and with normal diaphragmatic excursion. No wheezes or rales were noted. Cardiac exam revealed the PMI to be normally situated and sized. The rhythm was regular and no extrasystoles were noted during several minutes of auscultation. The first and second heart sounds were normal and physiologic splitting of the second heart sound was noted. There were no murmurs, rubs, clicks, or gallops. Abdomen is soft. Bowel sounds are absent. There is a midabdominal large skin wound which is dry clean and intact and the patient has a right lower quadrant LOUISA drain in place. No ascites. Extremities show below-knee amputation on the right, 4 of the toes are missing in the left foot with diminished pulses at the obtained by Doppler signal. Neurologically the patient is sedated. He can withdraw to deep painful stimuli. - Labs CBC & Chem 7: 03/18/17 05:50 03/18/17 05:50 Labs: Abnormal Lab Results - Last 24 Hours (Table) 03/17/17 03/17/17 03/17/17 Range/Units 04:20 09:05 10:11 WBC (3.8-10.6) k/uL RBC (4.30-5.90) m/uL Hgb (13.0-17.5) gm/dL Hct (39.0-53.0) % Plt Count (150-450) k/uL Neutrophils # (1.3-7.7) k/uL ABG pH (7.35-7.45) ABG pCO2 (35-45) mmHg ABG pO2 (83-108) mmHg ABG HCO3 (21-25) mmol/L ABG Total CO2 (19-24) mmol/L ABG O2 Saturation (94-97) % Chloride (98-107) mmol/L Carbon Dioxide (22-30) mmol/L BUN (9-20) mg/dL Creatinine (0.66-1.25) mg/dL Glucose (74-99) mg/dL POC Glucose (mg/dL) 147 H 134 H (75-99) mg/dL Hemoglobin A1c 7.7 H (4.2-6.1) % Calcium (8.4-10.2) mg/dL Magnesium (1.6-2.3) mg/dL 03/17/17 03/17/17 03/17/17 Range/Units 12:08 13:01 14:09 WBC (3.8-10.6) k/uL RBC (4.30-5.90) m/uL Hgb (13.0-17.5) gm/dL Hct (39.0-53.0) % Plt Count (150-450) k/uL Neutrophils # (1.3-7.7) k/uL ABG pH (7.35-7.45) ABG pCO2 (35-45) mmHg ABG pO2 (83-108) mmHg ABG HCO3 (21-25) mmol/L ABG Total CO2 (19-24) mmol/L ABG O2 Saturation (94-97) % Chloride (98-107) mmol/L Carbon Dioxide (22-30) mmol/L BUN (9-20) mg/dL Creatinine (0.66-1.25) mg/dL Glucose (74-99) mg/dL POC Glucose (mg/dL) 132 H 147 H 150 H (75-99) mg/dL Hemoglobin A1c (4.2-6.1) % Calcium (8.4-10.2) mg/dL Magnesium (1.6-2.3) mg/dL 03/17/17 03/17/17 03/17/17 Range/Units 15:14 16:07 17:18 WBC (3.8-10.6) k/uL RBC (4.30-5.90) m/uL Hgb (13.0-17.5) gm/dL Hct (39.0-53.0) % Plt Count (150-450) k/uL Neutrophils # (1.3-7.7) k/uL ABG pH (7.35-7.45) ABG pCO2 (35-45) mmHg ABG pO2 (83-108) mmHg ABG HCO3 (21-25) mmol/L ABG Total CO2 (19-24) mmol/L ABG O2 Saturation (94-97) % Chloride (98-107) mmol/L Carbon Dioxide (22-30) mmol/L BUN (9-20) mg/dL Creatinine (0.66-1.25) mg/dL Glucose (74-99) mg/dL POC Glucose (mg/dL) 152 H 160 H 157 H (75-99) mg/dL Hemoglobin A1c (4.2-6.1) % Calcium (8.4-10.2) mg/dL Magnesium (1.6-2.3) mg/dL 03/17/17 03/17/17 03/17/17 Range/Units 18:19 19:09 20:28 WBC (3.8-10.6) k/uL RBC (4.30-5.90) m/uL Hgb (13.0-17.5) gm/dL Hct (39.0-53.0) % Plt Count (150-450) k/uL Neutrophils # (1.3-7.7) k/uL ABG pH (7.35-7.45) ABG pCO2 (35-45) mmHg ABG pO2 (83-108) mmHg ABG HCO3 (21-25) mmol/L ABG Total CO2 (19-24) mmol/L ABG O2 Saturation (94-97) % Chloride (98-107) mmol/L Carbon Dioxide (22-30) mmol/L BUN (9-20) mg/dL Creatinine (0.66-1.25) mg/dL Glucose (74-99) mg/dL POC Glucose (mg/dL) 178 H 174 H 145 H (75-99) mg/dL Hemoglobin A1c (4.2-6.1) % Calcium (8.4-10.2) mg/dL Magnesium (1.6-2.3) mg/dL 03/17/17 03/17/17 03/17/17 Range/Units 21:13 22:17 23:29 WBC (3.8-10.6) k/uL RBC (4.30-5.90) m/uL Hgb (13.0-17.5) gm/dL Hct (39.0-53.0) % Plt Count (150-450) k/uL Neutrophils # (1.3-7.7) k/uL ABG pH (7.35-7.45) ABG pCO2 (35-45) mmHg ABG pO2 (83-108) mmHg ABG HCO3 (21-25) mmol/L ABG Total CO2 (19-24) mmol/L ABG O2 Saturation (94-97) % Chloride (98-107) mmol/L Carbon Dioxide (22-30) mmol/L BUN (9-20) mg/dL Creatinine (0.66-1.25) mg/dL Glucose (74-99) mg/dL POC Glucose (mg/dL) 160 H 173 H 170 H (75-99) mg/dL Hemoglobin A1c (4.2-6.1) % Calcium (8.4-10.2) mg/dL Magnesium (1.6-2.3) mg/dL 03/17/17 03/18/17 03/18/17 Range/Units 23:56 01:02 02:25 WBC (3.8-10.6) k/uL RBC (4.30-5.90) m/uL Hgb (13.0-17.5) gm/dL Hct (39.0-53.0) % Plt Count (150-450) k/uL Neutrophils # (1.3-7.7) k/uL ABG pH (7.35-7.45) ABG pCO2 (35-45) mmHg ABG pO2 (83-108) mmHg ABG HCO3 (21-25) mmol/L ABG Total CO2 (19-24) mmol/L ABG O2 Saturation (94-97) % Chloride (98-107) mmol/L Carbon Dioxide (22-30) mmol/L BUN (9-20) mg/dL Creatinine (0.66-1.25) mg/dL Glucose (74-99) mg/dL POC Glucose (mg/dL) 149 H 146 H 138 H (75-99) mg/dL Hemoglobin A1c (4.2-6.1) % Calcium (8.4-10.2) mg/dL Magnesium (1.6-2.3) mg/dL 03/18/17 03/18/17 03/18/17 Range/Units 03:01 04:14 05:32 WBC (3.8-10.6) k/uL RBC (4.30-5.90) m/uL Hgb (13.0-17.5) gm/dL Hct (39.0-53.0) % Plt Count (150-450) k/uL Neutrophils # (1.3-7.7) k/uL ABG pH 7.26 L (7.35-7.45) ABG pCO2 30 L (35-45) mmHg ABG pO2 155 H (83-108) mmHg ABG HCO3 12 L (21-25) mmol/L ABG Total CO2 14 L (19-24) mmol/L ABG O2 Saturation 99.0 H (94-97) % Chloride (98-107) mmol/L Carbon Dioxide (22-30) mmol/L BUN (9-20) mg/dL Creatinine (0.66-1.25) mg/dL Glucose (74-99) mg/dL POC Glucose (mg/dL) 157 H 135 H (75-99) mg/dL Hemoglobin A1c (4.2-6.1) % Calcium (8.4-10.2) mg/dL Magnesium (1.6-2.3) mg/dL 03/18/17 03/18/17 03/18/17 Range/Units 05:50 05:50 05:53 WBC 11.5 H (3.8-10.6) k/uL RBC 3.19 L (4.30-5.90) m/uL Hgb 9.3 L D (13.0-17.5) gm/dL Hct 29.4 L (39.0-53.0) % Plt Count 132 L (150-450) k/uL Neutrophils # 10.1 H (1.3-7.7) k/uL ABG pH (7.35-7.45) ABG pCO2 (35-45) mmHg ABG pO2 (83-108) mmHg ABG HCO3 (21-25) mmol/L ABG Total CO2 (19-24) mmol/L ABG O2 Saturation (94-97) % Chloride 115 H (98-107) mmol/L Carbon Dioxide 13 L (22-30) mmol/L BUN 86 H* (9-20) mg/dL Creatinine 4.80 H (0.66-1.25) mg/dL Glucose 140 H (74-99) mg/dL POC Glucose (mg/dL) 135 H (75-99) mg/dL Hemoglobin A1c (4.2-6.1) % Calcium 7.1 L (8.4-10.2) mg/dL Magnesium 2.4 H (1.6-2.3) mg/dL 03/18/17 03/18/17 Range/Units 06:56 08:02 WBC (3.8-10.6) k/uL RBC (4.30-5.90) m/uL Hgb (13.0-17.5) gm/dL Hct (39.0-53.0) % Plt Count (150-450) k/uL Neutrophils # (1.3-7.7) k/uL ABG pH (7.35-7.45) ABG pCO2 (35-45) mmHg ABG pO2 (83-108) mmHg ABG HCO3 (21-25) mmol/L ABG Total CO2 (19-24) mmol/L ABG O2 Saturation (94-97) % Chloride (98-107) mmol/L Carbon Dioxide (22-30) mmol/L BUN (9-20) mg/dL Creatinine (0.66-1.25) mg/dL Glucose (74-99) mg/dL POC Glucose (mg/dL) 126 H 129 H (75-99) mg/dL Hemoglobin A1c (4.2-6.1) % Calcium (8.4-10.2) mg/dL Magnesium (1.6-2.3) mg/dL Microbiology - Last 24 Hours (Table) 03/16/17 19:00 Urine Culture - Final Urine,Voided 03/16/17 16:30 Blood Culture - Preliminary Blood No Growth after 24 hours Assessment and Plan Plan: Assessment 1 acute abdomen status post extra laparotomy and repair of a perforated peptic ulcer a modified Don patch and open cholecystectomy. Patient is postop day # 2. 2 shock likely septic in nature secondary to intra-abdominal sepsis complicated by perforated peptic ulcer and cholecystitis. The patient has been aggressively resuscitated with IV fluids, albumin and he remains on pressors. Blood pressure is stable on 50 mics of norepinephrine infusion. Urine output is gradually improving. 3 hypotension secondary to above still , on pressors 4 sinus tachycardia, improving with fluid resuscitation 5 acute kidney injury on top of chronic renal failure. The patient has stage II kidney disease at baseline due to diabetic nephropathy. Acute kidney injury related to hypotension/sepsis due to ATN. Patient is oliguric at this point. On today's evaluation urine output is gradually improving with fluid resuscitation and some improvement in his hemodynamics. 6 acute lactic acidosis, improving 7 diabetes mellitus with poorly controlled blood sugar secondary to sepsis currently on insulin drip for blood sugar control. 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 Plan Patient is not ready for any weaning at this point. Keep him sedated with Diprivan. Continue the fluids with 1 25 mL of normal saline. Give additional albumin doses, 25 g and this will hopefully improve his oncotic pressure and blood pressure in general in urine output. We'll gradually try to wean off the norepinephrine infusion if possible. Continue the broad-spectrum antibiotics. May consider TPN within the next 48 hours. Continue vent support. No changes on a mechanical ventilator. Replace the potassium. DVT and GI prophylaxis. Condition is still very critical. Surgical wound site was noted and it's unchanged compared to yesterday. General surgeries on the case. The has been updated on his condition. I had a discussion with her yesterday and I'm going to talk to her again today. She understands the critical nature of this condition. Evaluation done in 35 min. Time with Patient: Greater than 30
[2017-03-18] MEDS: HEPARIN SODIUM,PORCINE 5,000 UNIT/ML 1 ML VIAL SQ SCH ×3 (08:54→23:34)
[2017-03-18] MEDS: CHLORHEXIDINE GLUCONATE 15 ML CUP MUCOUS MEM SCH ×2 (08:54→21:06)
[2017-03-18] MEDS: PIPERACILLIN-TAZOBACTAM 3.375 GM in DEXTROSE/WATER 1 50ML.BAG IVPB SCH ×2 (08:56→21:06)
[2017-03-18] MEDS ORDERED: ALBUMIN HUMAN 5% 500 ML in EMPTY BAG 1 BAG IVPB ONE ×2 (08:58→09:00)
[2017-03-18 09:09] LABS: Glucose,Whole Blood 122 mg/dL (75-99)
[2017-03-18] MEDS: PANTOPRAZOLE 40 MG/10 ML VIAL IV SCH ×2 (09:11→21:06)
[2017-03-18] MEDS: FLUCONAZOLE IN NACL,ISO-OSM 100 MG in SALINE 1 50ML.BAG IVPB SCH (09:11)
[2017-03-18 10:15] LABS: Glucose,Whole Blood 130 mg/dL (75-99)
[2017-03-18 12:05] LABS: Glucose,Whole Blood 130 mg/dL (75-99)
--- NOTE | 2017-03-18 13:34 | P.PN ---
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 [facility] most recently under the care of Dr. Gordon and discharged in August 2016 after a dehiscence of the right below the knee wound healed. Patient presented to [facility] emergency center on March 16 with generalized weakness and abdominal pain for at least couple days up to 1 week with concerns for constipation and was taking laxatives with no improvement. Patient also had decreased appetite and pain was gradually worsening. There was nausea without vomiting. Chest x-ray showed pneumoperitoneum and left basilar atelectasis with no heart failure. Abdominal films also showed pneumoperitoneum. CAT scan of the abdomen and pelvis without contrast and was found have a large pneumoperitoneum, large ascites, large nonobstructive right renal calculi and possible gallbladder thickening with concern for gangrenous gallbladder. Patient was taken to the OR by Dr. Wiley for exploratory laparotomy with repair of perforated peptic ulcer and open cholecystectomy. Patient was then transferred to the intensive care unit where he remains intubated and on mechanical ventilation. Patient presented with severe sepsis and septic shock status post 7 1/2 liters of fluid currently on levo at 20 mics. He did not have a urine output for the day shift thus far. O2 needs have decreased however. He is currently on IV antimicrobials in the form of fluconazole, Flagyl and Zosyn. Blood cultures status received and urine culture status received. C. difficile toxin was negative. Patient is noted to have a stage II decubitus ulcer on his buttocks that was present on admission. There has been little improvement the day today. He is on less vasopressor therapy however. Responded to fluids. Urine output is started to improve. Still has acute renal failure. Critical care has no plans on weaning further today. Objective - Vital Signs Vital signs: Vital Signs Temp 98.4 F 03/18/17 12:00 Pulse 103 H 03/18/17 12:30 Resp 19 03/18/17 12:30 BP 100/50 03/18/17 12:30 Pulse Ox 100 03/18/17 12:30 Intake & Output 03/17/17 03/18/17 03/18/17 18:59 06:59 18:59 Intake Total 5012.812 3194.476 2251.976 Output Total 43 477 160 Balance 4969.812 2717.476 2091.976 Weight 85.2 kg 94.6 kg Intake: IV 1375 1500 500 0.9 1375 1500 500 Intake, IV Titration 3637.812 7922.904 2320.976 Amount Albumin Human 5% 500 ml 500 In Empty Bag 1 bag @ 250 mls/hr IVPB ONCE ONE Rx#: [id number] Albumin Human 5% 500 ml 1000 500 In Empty Bag 1 bag @ 250 mls/hr IVPB ONCE ONE Rx#: [id number] Fluconazole in NaCl,Iso- 50 50 Osm 100 mg In Saline 1 50ml.bag @ 50 mls/hr IVPB DAILY [facility] Rx#:[id number] Insulin Regular 100 unit 13.618 9.617 In Sodium Chloride 0.9% 100 ml @ Per Protocol IV .Q0M [facility] Rx#:[id number] Magnesium Sulfate-D5w Pmx 200 1 gm In Dextrose/Water 1 100ml.bag @ 100 mls/hr IVPB Q1H [facility] Rx#: [id number] Norepinephrin 16 mg-0.9% 133.438 98.207 199.695 Ns Pmx 16 mg In 250 ml @ Titrate IV .Q0M [facility] Rx#: [id number] Piperacillin-Tazobactam 3 12.5 50.0 12.5 .375 gm In Dextrose/Water 1 50ml.bag @ 12.5 mls/hr IVPB Q12HR [facility] Rx#: [id number] Piperacillin-Tazobactam 3 75.0 12.5 .375 gm In Dextrose/Water 1 50ml.bag @ 12.5 mls/hr IVPB Q8HR [facility] Rx#: [id number] Potassium Chloride 10 meq 200 Lidocaine 2% Inj 10 mg In Sodium Chloride 0.9% 100 ml @ 100 mls/hr IV Q1HR [facility] Rx#:[id number] Propofol 1,000 mg In 100 128.256 136.652 177.281 ml @ Titrate IV .Q0M [facility] Rx#:[id number] Sodium Chloride 0.9% 1, 125 000 ml @ 125 mls/hr IV . Q8H [facility] Rx#:[id number] Sodium Chloride 0.9% 1, 1000 000 ml @ 999 mls/hr IV . Q1H1M [facility] Rx#:[id number] Sodium Chloride 0.9% 1, 2000 000 ml @ 999 mls/hr IV . Q1H1M [facility] Rx#:[id number] metroNIDAZOLE-NS PMX 500 100 200 100 mg In Saline 1 100ml.bag @ 100 mls/hr IVPB Q8HR [facility] Rx#:[id number] Output: Gastric Drainage 200 Drainage 0 15 Right Upper Abdomen 0 15 Urine 43 262 160 Other: Voiding Method Indwelling Catheter Indwelling Catheter Indwelling Catheter ABP, PAP, CO, CI - Last Documented Arterial Blood Pressure 103/46 - Exam Gen: This is an obese 66-year-old male. He is seen in the ICU, intubated and on mechanical ventilation. Patient appears comfortable and in no acute distress. HEENT: Head is atraumatic, normocephalic. Oral ET and gastric tube in place. White coating noted on the tongue. Mucous membranes are slightly dry.. NECK: Supple. No JVD. No lymphadenopathy. Trachea midline. LUNGS: Clear to auscultation. No wheezes or rhonchi. No intercostal retractions. HEART: Regular rate and rhythm. No murmur. Patient is tachycardic. ABDOMEN: Soft. Bowel sounds are not present. No masses. No tenderness. LOUISA drain to the right upper abdomen is draining serosanguineous fluid. Dressing to the right upper quadrant and midline are in place with no breakthrough drainage or bleeding. Castellanos catheter in place draining clear pinky urine. EXTREMITIES: No pedal edema to the left lower extremity. Patient has amputations of toes 2 through 5 on the left and a right below the knee amputation. All extremities are cool to the touch. No mottling noted. NEUROLOGICAL: Patient is unresponsive, currently intubated and on sedation - Labs CBC & Chem 7: 03/18/17 05:50 03/18/17 05:50 Labs: Abnormal Lab Results - Last 24 Hours (Table) 03/17/17 03/17/17 03/17/17 Range/Units 14:09 15:14 16:07 WBC (3.8-10.6) k/uL RBC (4.30-5.90) m/uL Hgb (13.0-17.5) gm/dL Hct (39.0-53.0) % Plt Count (150-450) k/uL Neutrophils # (1.3-7.7) k/uL ABG pH (7.35-7.45) ABG pCO2 (35-45) mmHg ABG pO2 (83-108) mmHg ABG HCO3 (21-25) mmol/L ABG Total CO2 (19-24) mmol/L ABG O2 Saturation (94-97) % Chloride (98-107) mmol/L Carbon Dioxide (22-30) mmol/L BUN (9-20) mg/dL Creatinine (0.66-1.25) mg/dL Glucose (74-99) mg/dL POC Glucose (mg/dL) 150 H 152 H 160 H (75-99) mg/dL Calcium (8.4-10.2) mg/dL Magnesium (1.6-2.3) mg/dL 03/17/17 03/17/17 03/17/17 Range/Units 17:18 18:19 19:09 WBC (3.8-10.6) k/uL RBC (4.30-5.90) m/uL Hgb (13.0-17.5) gm/dL Hct (39.0-53.0) % Plt Count (150-450) k/uL Neutrophils # (1.3-7.7) k/uL ABG pH (7.35-7.45) ABG pCO2 (35-45) mmHg ABG pO2 (83-108) mmHg ABG HCO3 (21-25) mmol/L ABG Total CO2 (19-24) mmol/L ABG O2 Saturation (94-97) % Chloride (98-107) mmol/L Carbon Dioxide (22-30) mmol/L BUN (9-20) mg/dL Creatinine (0.66-1.25) mg/dL Glucose (74-99) mg/dL POC Glucose (mg/dL) 157 H 178 H 174 H (75-99) mg/dL Calcium (8.4-10.2) mg/dL Magnesium (1.6-2.3) mg/dL 03/17/17 03/17/17 03/17/17 Range/Units 20:28 21:13 22:17 WBC (3.8-10.6) k/uL RBC (4.30-5.90) m/uL Hgb (13.0-17.5) gm/dL Hct (39.0-53.0) % Plt Count (150-450) k/uL Neutrophils # (1.3-7.7) k/uL ABG pH (7.35-7.45) ABG pCO2 (35-45) mmHg ABG pO2 (83-108) mmHg ABG HCO3 (21-25) mmol/L ABG Total CO2 (19-24) mmol/L ABG O2 Saturation (94-97) % Chloride (98-107) mmol/L Carbon Dioxide (22-30) mmol/L BUN (9-20) mg/dL Creatinine (0.66-1.25) mg/dL Glucose (74-99) mg/dL POC Glucose (mg/dL) 145 H 160 H 173 H (75-99) mg/dL Calcium (8.4-10.2) mg/dL Magnesium (1.6-2.3) mg/dL 03/17/17 03/17/17 03/18/17 Range/Units 23:29 23:56 01:02 WBC (3.8-10.6) k/uL RBC (4.30-5.90) m/uL Hgb (13.0-17.5) gm/dL Hct (39.0-53.0) % Plt Count (150-450) k/uL Neutrophils # (1.3-7.7) k/uL ABG pH (7.35-7.45) ABG pCO2 (35-45) mmHg ABG pO2 (83-108) mmHg ABG HCO3 (21-25) mmol/L ABG Total CO2 (19-24) mmol/L ABG O2 Saturation (94-97) % Chloride (98-107) mmol/L Carbon Dioxide (22-30) mmol/L BUN (9-20) mg/dL Creatinine (0.66-1.25) mg/dL Glucose (74-99) mg/dL POC Glucose (mg/dL) 170 H 149 H 146 H (75-99) mg/dL Calcium (8.4-10.2) mg/dL Magnesium (1.6-2.3) mg/dL 03/18/17 03/18/17 03/18/17 Range/Units 02:25 03:01 04:14 WBC (3.8-10.6) k/uL RBC (4.30-5.90) m/uL Hgb (13.0-17.5) gm/dL Hct (39.0-53.0) % Plt Count (150-450) k/uL Neutrophils # (1.3-7.7) k/uL ABG pH (7.35-7.45) ABG pCO2 (35-45) mmHg ABG pO2 (83-108) mmHg ABG HCO3 (21-25) mmol/L ABG Total CO2 (19-24) mmol/L ABG O2 Saturation (94-97) % Chloride (98-107) mmol/L Carbon Dioxide (22-30) mmol/L BUN (9-20) mg/dL Creatinine (0.66-1.25) mg/dL Glucose (74-99) mg/dL POC Glucose (mg/dL) 138 H 157 H 135 H (75-99) mg/dL Calcium (8.4-10.2) mg/dL Magnesium (1.6-2.3) mg/dL 03/18/17 03/18/17 03/18/17 Range/Units 05:32 05:50 05:50 WBC 11.5 H (3.8-10.6) k/uL RBC 3.19 L (4.30-5.90) m/uL Hgb 9.3 L D (13.0-17.5) gm/dL Hct 29.4 L (39.0-53.0) % Plt Count 132 L (150-450) k/uL Neutrophils # 10.1 H (1.3-7.7) k/uL ABG pH 7.26 L (7.35-7.45) ABG pCO2 30 L (35-45) mmHg ABG pO2 155 H (83-108) mmHg ABG HCO3 12 L (21-25) mmol/L ABG Total CO2 14 L (19-24) mmol/L ABG O2 Saturation 99.0 H (94-97) % Chloride 115 H (98-107) mmol/L Carbon Dioxide 13 L (22-30) mmol/L BUN 86 H* (9-20) mg/dL Creatinine 4.80 H (0.66-1.25) mg/dL Glucose 140 H (74-99) mg/dL POC Glucose (mg/dL) (75-99) mg/dL Calcium 7.1 L (8.4-10.2) mg/dL Magnesium 2.4 H (1.6-2.3) mg/dL 03/18/17 03/18/17 03/18/17 Range/Units 05:53 06:56 08:02 WBC (3.8-10.6) k/uL RBC (4.30-5.90) m/uL Hgb (13.0-17.5) gm/dL Hct (39.0-53.0) % Plt Count (150-450) k/uL Neutrophils # (1.3-7.7) k/uL ABG pH (7.35-7.45) ABG pCO2 (35-45) mmHg ABG pO2 (83-108) mmHg ABG HCO3 (21-25) mmol/L ABG Total CO2 (19-24) mmol/L ABG O2 Saturation (94-97) % Chloride (98-107) mmol/L Carbon Dioxide (22-30) mmol/L BUN (9-20) mg/dL Creatinine (0.66-1.25) mg/dL Glucose (74-99) mg/dL POC Glucose (mg/dL) 135 H 126 H 129 H (75-99) mg/dL Calcium (8.4-10.2) mg/dL Magnesium (1.6-2.3) mg/dL 03/18/17 03/18/17 03/18/17 Range/Units 09:07 10:14 12:03 WBC (3.8-10.6) k/uL RBC (4.30-5.90) m/uL Hgb (13.0-17.5) gm/dL Hct (39.0-53.0) % Plt Count (150-450) k/uL Neutrophils # (1.3-7.7) k/uL ABG pH (7.35-7.45) ABG pCO2 (35-45) mmHg ABG pO2 (83-108) mmHg ABG HCO3 (21-25) mmol/L ABG Total CO2 (19-24) mmol/L ABG O2 Saturation (94-97) % Chloride (98-107) mmol/L Carbon Dioxide (22-30) mmol/L BUN (9-20) mg/dL Creatinine (0.66-1.25) mg/dL Glucose (74-99) mg/dL POC Glucose (mg/dL) 122 H 130 H 130 H (75-99) mg/dL Calcium (8.4-10.2) mg/dL Magnesium (1.6-2.3) mg/dL Microbiology - Last 24 Hours (Table) 03/18/17 02:25 Gram Stain - Preliminary Sputum Sputum Culture - Preliminary 03/16/17 19:00 Urine Culture - Final Urine,Voided 03/16/17 16:30 Blood Culture - Preliminary Blood No Growth after 24 hours Laboratory Results WBC 11.5 k/uL (3.8-10.6) H 03/18/17 05:50 RBC 3.19 m/uL (4.30-5.90) L 03/18/17 05:50 Hgb 9.3 gm/dL (13.0-17.5) L D 03/18/17 05:50 Hct 29.4 % (39.0-53.0) L 03/18/17 05:50 MCV 92.1 fL (80.0-100.0) 03/18/17 05:50 MCH 29.0 pg (25.0-35.0) 03/18/17 05:50 MCHC 31.5 g/dL (31.0-37.0) 03/18/17 05:50 RDW 14.9 % (11.5-15.5) 03/18/17 05:50 Plt Count 132 k/uL (150-450) L 03/18/17 05:50 Neutrophils % 88 % 03/18/17 05:50 Neutrophils % (Manual) 61.6 % 03/17/17 04:20 Band Neutrophils % 15.2 % 03/17/17 04:20 Lymphocytes % 9 % 03/18/17 05:50 Lymphocytes % (Manual) 18.2 % 03/17/17 04:20 Monocytes % 2 % 03/18/17 05:50 Monocytes % (Manual) 5.1 % 03/17/17 04:20 Eosinophils % 0 % 03/18/17 05:50 Basophils % 0 % 03/18/17 05:50 Metamyelocytes % 4.0 % 03/16/17 22:50 Neutrophils # 10.1 k/uL (1.3-7.7) H 03/18/17 05:50 Neutrophils # (Manual) 7.1 k/uL (1.3-7.7) 03/17/17 04:20 Lymphocytes # 1.0 k/uL (1.0-4.8) 03/18/17 05:50 Lymphocytes # (Manual) 1.7 k/uL (1.0-4.8) 03/17/17 04:20 Monocytes # 0.3 k/uL (0-1.0) 03/18/17 05:50 Monocytes # (Manual) 0.5 k/uL (0-1.0) 03/17/17 04:20 Eosinophils # 0.0 k/uL (0-0.7) 03/18/17 05:50 Basophils # 0.0 k/uL (0-0.2) 03/18/17 05:50 Nucleated RBCs 0 /100 WBC (0-0) 03/17/17 04:20 Manual Slide Review Performed 03/17/17 04:20 Toxic Granulation Present 03/16/17 16:30 RBC Morphology Normal 03/16/17 16:30 PT 10.4 sec (9.0-12.0) 03/16/17 16:30 INR 1.0 (<1.2) 03/16/17 16:30 APTT 22.1 sec (22.0-30.0) 03/16/17 16:30 Sample Site [place] 03/18/17 05:32 ABG pH 7.26 (7.35-7.45) L 03/18/17 05:32 ABG pCO2 30 mmHg (35-45) L 03/18/17 05:32 ABG pO2 155 mmHg (83-108) H 03/18/17 05:32 ABG HCO3 12 mmol/L (21-25) L 03/18/17 05:32 ABG Total CO2 14 mmol/L (19-24) L 03/18/17 05:32 ABG O2 Saturation 99.0 % (94-97) H 03/18/17 05:32 ABG Base Excess -12.4 mmol/L 03/18/17 05:32 ABG Hematocrit 29 % (34.0-46.0) L 03/16/17 21:12 ABG Lactic Acid 0.9 mmol/L (0.5-1.6) 03/18/17 05:50 VBG pH 7.25 (7.31-7.41) L 03/16/17 16:30 VBG pCO2 29 mmHg (37-51) L 03/16/17 16:30 VBG HCO3 12 mmol/L (24-28) L 03/16/17 16:30 FiO2 40 % 03/18/17 05:32 Sodium 140 mmol/L (137-145) 03/18/17 05:50 Potassium 3.6 mmol/L (3.5-5.1) 03/18/17 05:50 Chloride 115 mmol/L (98-107) H 03/18/17 05:50 Carbon Dioxide 13 mmol/L (22-30) L 03/18/17 05:50 Anion Gap 12 mmol/L 03/18/17 05:50 BUN 86 mg/dL (9-20) H* 03/18/17 05:50 Creatinine 4.80 mg/dL (0.66-1.25) H 03/18/17 05:50 Est GFR (MDRD) Af Amer 15 (>60 ml/min/1.73 sqM) 03/18/17 05:50 Est GFR (MDRD) Non-Af 12 (>60 ml/min/1.73 sqM) 03/18/17 05:50 Glucose 140 mg/dL (74-99) H 03/18/17 05:50 POC Glucose (mg/dL) 130 mg/dL (75-99) H 03/18/17 12:03 POC Glu [employer] PHILL Zach Daniels 03/18/17 12:[address] Glu mg/dL 174 mg/dL 03/17/17 04:20 Hemoglobin A1c 7.7 % (4.2-6.1) H 03/17/17 04:20 Lactic Ac Sepsis Rflx Y 03/16/17 16:57 Plasma Lactic Acid Mario 2.8 mmol/L (0.7-2.0) H* 03/16/17 22:42 Calcium 7.1 mg/dL (8.4-10.2) L 03/18/17 05:50 Ionized Calcium Valorie 4.6 mg/dL (4.5-5.3) 03/17/17 22:15 Phosphorus 3.2 mg/dL (2.5-4.5) 03/18/17 05:50 Magnesium 2.4 mg/dL (1.6-2.3) H 03/18/17 05:50 Total Bilirubin 0.6 mg/dL (0.2-1.3) 03/17/17 04:20 AST 69 U/L (17-59) H 03/17/17 04:20 ALT 40 U/L (21-72) 03/17/17 04:20 Alkaline Phosphatase 22 U/L (38-126) L 03/17/17 04:20 Total Creatine Kinase 216 U/L (55-170) H 03/16/17 16:30 CK-MB (CK-2) 2.9 ng/mL (0.0-2.4) H* 03/16/17 16:30 CK-MB (CK-2) Rel Index 1.3 03/16/17 16:30 Troponin I 0.590 ng/mL (0.000-0.034) H* 03/16/17 16:30 Total Protein 4.1 g/dL (6.3-8.2) L 03/17/17 04:20 Albumin 1.9 g/dL (3.5-5.0) L 03/17/17 04:20 TSH 0.672 mIU/L (0.465-4.680) 03/16/17 16:30 Urine Color Dark Yellow 03/16/17 19:00 Urine Appearance Cloudy (Clear) 03/16/17 19:00 Urine pH 5.0 (5.0-8.0) 03/16/17 19:00 Ur Specific [place] 1.017 (1.001-1.035) 03/16/17 19:00 Urine Protein 1+ (Negative) H 03/16/17 19:00 Urine Glucose (UA) 1+ (Negative) H 03/16/17 19:00 Urine Ketones Negative (Negative) 03/16/17 19:00 Urine Blood Trace (Negative) H 03/16/17 19:00 Urine Nitrite Negative (Negative) 03/16/17 19:00 Urine Bilirubin Negative (Negative) 03/16/17 19:00 Urine Urobilinogen <2.0 mg/dL (<2.0) 03/16/17 19:00 Ur Leukocyte Esterase Negative (Negative) 03/16/17 19:00 Urine RBC 15 /hpf (0-5) H 03/16/17 19:00 Urine WBC 4 /hpf (0-5) 03/16/17 19:00 Amorphous Sediment Occasional /hpf (None) H 03/16/17 19:00 Hyaline Casts 110 /lpf (0-2) H 03/16/17 19:00 C. difficile (EIA) Intrp Negative (Negative) 03/16/17 23:00 Blood Type A Positive 03/16/17 16:30 Blood Type Recheck No 03/16/17 16:30 Antibody Screen NEGATIVE 03/16/17 16:30 Spec Expiration Date 03/19/2017 - 2330 03/16/17 16:30 Microbiology 03/18/17 02:25 Sputum Gram Stain - Preliminary 03/18/17 02:25 Sputum Sputum Culture - Preliminary 03/16/17 19:00 Urine,Voided Urine Culture - Final 03/16/17 16:30 Blood Blood Culture - Preliminary No Growth after 24 hours Assessment and Plan (1) Septic shock Narrative/Plan: 66-year-old male with multiple medical troubles with left toe amputations and right below-knee amputation due to his severe peripheral vascular disease. Now presents with a significant bout of sepsis from the abdomen. Has evidence of pneumoperitoneum. Perforated gastric ulcer was noted. As well as gangrenous cholecystitis. He's had the surgical incision is noted. Remains profoundly ill with septic shock. For sepsis from the abdominal source in the condition of the perforation and gangrenous cholecystitis continue with antifungal therapy with fluconazole. Piperacillin tazobactam is being dosed per his renal failure. Has a history of MRSA as well as VRE infection. With this daptomycin will be initiated with dosing based on his current renal failure. Cultures are in process. Supportive care continues. Prognosis is poor. Status: Acute (2) Gastric perforation Status: Acute (3) Cholecystitis Status: Acute
[2017-03-18 14:00] LABS: Glucose,Whole Blood 132 mg/dL (75-99)
[2017-03-18] MEDS ORDERED: DAPTOmycin 500 MG in SODIUM CHLORIDE 0.9% 50 ML IV SCH (14:00)
[2017-03-18 16:04] LABS: Glucose,Whole Blood 130 mg/dL (75-99)
--- NOTE | 2017-03-18 16:56 | P.PN ---
Subjective Principal diagnosis: Perforated peptic ulcer Patient slowly improving. Urine output has improved. LOUISA drain output diminished with only serosanguineous output. Nasogastric tube remains bilious. Levophed is down to 8 mikes at this point. Remains sedated on the ventilator. Objective - Vital Signs Vital signs: Vital Signs Temp 98.3 F 03/18/17 15:30 Pulse 101 H 03/18/17 16:00 Resp 19 03/18/17 16:00 BP 102/51 03/18/17 16:00 Pulse Ox 99 03/18/17 16:00 Intake & Output 03/17/17 03/18/17 03/18/17 18:59 06:59 18:59 Intake Total 5012.812 3194.476 2809.094 Output Total 43 477 280 Balance 4969.812 2717.476 2529.094 Weight 85.2 kg 94.6 kg Intake: IV 1375 1500 625 0.9 1375 1500 625 Intake, IV Titration 3637.812 0668.745 2096.094 Amount Albumin Human 5% 500 ml 500 In Empty Bag 1 bag @ 250 mls/hr IVPB ONCE ONE Rx#: [id number] Albumin Human 5% 500 ml 1000 500 In Empty Bag 1 bag @ 250 mls/hr IVPB ONCE ONE Rx#: [id number] DAPTOmycin 500 mg In 50 Sodium Chloride 0.9% 50 ml @ 100 mls/hr IV Q48H [facility] Rx#:[id number] Fluconazole in NaCl,Iso- 50 50 Osm 100 mg In Saline 1 50ml.bag @ 50 mls/hr IVPB DAILY [facility] Rx#:[id number] Insulin Regular 100 unit 13.618 9.617 In Sodium Chloride 0.9% 100 ml @ Per Protocol IV .Q0M [facility] Rx#:[id number] Magnesium Sulfate-D5w Pmx 200 1 gm In Dextrose/Water 1 100ml.bag @ 100 mls/hr IVPB Q1H [facility] Rx#: [id number] Norepinephrin 16 mg-0.9% 133.438 98.207 199.695 Ns Pmx 16 mg In 250 ml @ Titrate IV .Q0M [facility] Rx#: [id number] Piperacillin-Tazobactam 3 12.5 50.0 12.5 .375 gm In Dextrose/Water 1 50ml.bag @ 12.5 mls/hr IVPB Q12HR [facility] Rx#: [id number] Piperacillin-Tazobactam 3 75.0 12.5 .375 gm In Dextrose/Water 1 50ml.bag @ 12.5 mls/hr IVPB Q8HR [facility] Rx#: [id number] Potassium Chloride 10 meq 200 Lidocaine 2% Inj 10 mg In Sodium Chloride 0.9% 100 ml @ 100 mls/hr IV Q1HR [facility] Rx#:[id number] Propofol 1,000 mg In 100 128.256 136.652 184.399 ml @ Titrate IV .Q0M [facility] Rx#:[id number] Sodium Chloride 0.9% 1, 125 375 000 ml @ 125 mls/hr IV . Q8H [facility] Rx#:[id number] Sodium Chloride 0.9% 1, 1000 000 ml @ 999 mls/hr IV . Q1H1M [facility] Rx#:[id number] Sodium Chloride 0.9% 1, 2000 000 ml @ 999 mls/hr IV . Q1H1M [facility] Rx#:[id number] metroNIDAZOLE-NS PMX 500 100 200 100 mg In Saline 1 100ml.bag @ 100 mls/hr IVPB Q8HR [facility] Rx#:[id number] Output: Gastric Drainage 200 Drainage 0 15 Right Upper Abdomen 0 15 Urine 43 262 280 Stool 0 Other: Voiding Method Indwelling Catheter Indwelling Catheter Indwelling Catheter ABP, PAP, CO, CI - Last Documented Arterial Blood Pressure 115/46 - Exam Abdomen: Soft, mild distention, incision clean, nola removed and replaced - Labs CBC & Chem 7: 03/18/17 05:50 03/18/17 05:50 Labs: Abnormal Lab Results - Last 24 Hours (Table) 03/17/17 03/17/17 03/17/17 Range/Units 17:18 18:19 19:09 WBC (3.8-10.6) k/uL RBC (4.30-5.90) m/uL Hgb (13.0-17.5) gm/dL Hct (39.0-53.0) % Plt Count (150-450) k/uL Neutrophils # (1.3-7.7) k/uL ABG pH (7.35-7.45) ABG pCO2 (35-45) mmHg ABG pO2 (83-108) mmHg ABG HCO3 (21-25) mmol/L ABG Total CO2 (19-24) mmol/L ABG O2 Saturation (94-97) % Chloride (98-107) mmol/L Carbon Dioxide (22-30) mmol/L BUN (9-20) mg/dL Creatinine (0.66-1.25) mg/dL Glucose (74-99) mg/dL POC Glucose (mg/dL) 157 H 178 H 174 H (75-99) mg/dL Calcium (8.4-10.2) mg/dL Magnesium (1.6-2.3) mg/dL 03/17/17 03/17/17 03/17/17 Range/Units 20:28 21:13 22:17 WBC (3.8-10.6) k/uL RBC (4.30-5.90) m/uL Hgb (13.0-17.5) gm/dL Hct (39.0-53.0) % Plt Count (150-450) k/uL Neutrophils # (1.3-7.7) k/uL ABG pH (7.35-7.45) ABG pCO2 (35-45) mmHg ABG pO2 (83-108) mmHg ABG HCO3 (21-25) mmol/L ABG Total CO2 (19-24) mmol/L ABG O2 Saturation (94-97) % Chloride (98-107) mmol/L Carbon Dioxide (22-30) mmol/L BUN (9-20) mg/dL Creatinine (0.66-1.25) mg/dL Glucose (74-99) mg/dL POC Glucose (mg/dL) 145 H 160 H 173 H (75-99) mg/dL Calcium (8.4-10.2) mg/dL Magnesium (1.6-2.3) mg/dL 03/17/17 03/17/17 03/18/17 Range/Units 23:29 23:56 01:02 WBC (3.8-10.6) k/uL RBC (4.30-5.90) m/uL Hgb (13.0-17.5) gm/dL Hct (39.0-53.0) % Plt Count (150-450) k/uL Neutrophils # (1.3-7.7) k/uL ABG pH (7.35-7.45) ABG pCO2 (35-45) mmHg ABG pO2 (83-108) mmHg ABG HCO3 (21-25) mmol/L ABG Total CO2 (19-24) mmol/L ABG O2 Saturation (94-97) % Chloride (98-107) mmol/L Carbon Dioxide (22-30) mmol/L BUN (9-20) mg/dL Creatinine (0.66-1.25) mg/dL Glucose (74-99) mg/dL POC Glucose (mg/dL) 170 H 149 H 146 H (75-99) mg/dL Calcium (8.4-10.2) mg/dL Magnesium (1.6-2.3) mg/dL 03/18/17 03/18/17 03/18/17 Range/Units 02:25 03:01 04:14 WBC (3.8-10.6) k/uL RBC (4.30-5.90) m/uL Hgb (13.0-17.5) gm/dL Hct (39.0-53.0) % Plt Count (150-450) k/uL Neutrophils # (1.3-7.7) k/uL ABG pH (7.35-7.45) ABG pCO2 (35-45) mmHg ABG pO2 (83-108) mmHg ABG HCO3 (21-25) mmol/L ABG Total CO2 (19-24) mmol/L ABG O2 Saturation (94-97) % Chloride (98-107) mmol/L Carbon Dioxide (22-30) mmol/L BUN (9-20) mg/dL Creatinine (0.66-1.25) mg/dL Glucose (74-99) mg/dL POC Glucose (mg/dL) 138 H 157 H 135 H (75-99) mg/dL Calcium (8.4-10.2) mg/dL Magnesium (1.6-2.3) mg/dL 03/18/17 03/18/17 03/18/17 Range/Units 05:32 05:50 05:50 WBC 11.5 H (3.8-10.6) k/uL RBC 3.19 L (4.30-5.90) m/uL Hgb 9.3 L D (13.0-17.5) gm/dL Hct 29.4 L (39.0-53.0) % Plt Count 132 L (150-450) k/uL Neutrophils # 10.1 H (1.3-7.7) k/uL ABG pH 7.26 L (7.35-7.45) ABG pCO2 30 L (35-45) mmHg ABG pO2 155 H (83-108) mmHg ABG HCO3 12 L (21-25) mmol/L ABG Total CO2 14 L (19-24) mmol/L ABG O2 Saturation 99.0 H (94-97) % Chloride 115 H (98-107) mmol/L Carbon Dioxide 13 L (22-30) mmol/L BUN 86 H* (9-20) mg/dL Creatinine 4.80 H (0.66-1.25) mg/dL Glucose 140 H (74-99) mg/dL POC Glucose (mg/dL) (75-99) mg/dL Calcium 7.1 L (8.4-10.2) mg/dL Magnesium 2.4 H (1.6-2.3) mg/dL 03/18/17 03/18/17 03/18/17 Range/Units 05:53 06:56 08:02 WBC (3.8-10.6) k/uL RBC (4.30-5.90) m/uL Hgb (13.0-17.5) gm/dL Hct (39.0-53.0) % Plt Count (150-450) k/uL Neutrophils # (1.3-7.7) k/uL ABG pH (7.35-7.45) ABG pCO2 (35-45) mmHg ABG pO2 (83-108) mmHg ABG HCO3 (21-25) mmol/L ABG Total CO2 (19-24) mmol/L ABG O2 Saturation (94-97) % Chloride (98-107) mmol/L Carbon Dioxide (22-30) mmol/L BUN (9-20) mg/dL Creatinine (0.66-1.25) mg/dL Glucose (74-99) mg/dL POC Glucose (mg/dL) 135 H 126 H 129 H (75-99) mg/dL Calcium (8.4-10.2) mg/dL Magnesium (1.6-2.3) mg/dL 0803/18/17 03/18/17 Range/Units 09:07 10:14 12:03 WBC (3.8-10.6) k/uL RBC (4.30-5.90) m/uL Hgb (13.0-17.5) gm/dL Hct (39.0-53.0) % Plt Count (150-450) k/uL Neutrophils # (1.3-7.7) k/uL ABG pH (7.35-7.45) ABG pCO2 (35-45) mmHg ABG pO2 (83-108) mmHg ABG HCO3 (21-25) mmol/L ABG Total CO2 (19-24) mmol/L ABG O2 Saturation (94-97) % Chloride (98-107) mmol/L Carbon Dioxide (22-30) mmol/L BUN (9-20) mg/dL Creatinine (0.66-1.25) mg/dL Glucose (74-99) mg/dL POC Glucose (mg/dL) 122 H 130 H 130 H (75-99) mg/dL Calcium (8.4-10.2) mg/dL Magnesium (1.6-2.3) mg/dL 03/18/17 03/18/17 Range/Units 13:58 16:02 WBC (3.8-10.6) k/uL RBC (4.30-5.90) m/uL Hgb (13.0-17.5) gm/dL Hct (39.0-53.0) % Plt Count (150-450) k/uL Neutrophils # (1.3-7.7) k/uL ABG pH (7.35-7.45) ABG pCO2 (35-45) mmHg ABG pO2 (83-108) mmHg ABG HCO3 (21-25) mmol/L ABG Total CO2 (19-24) mmol/L ABG O2 Saturation (94-97) % Chloride (98-107) mmol/L Carbon Dioxide (22-30) mmol/L BUN (9-20) mg/dL Creatinine (0.66-1.25) mg/dL Glucose (74-99) mg/dL POC Glucose (mg/dL) 132 H 130 H (75-99) mg/dL Calcium (8.4-10.2) mg/dL Magnesium (1.6-2.3) mg/dL Microbiology - Last 24 Hours (Table) 03/18/17 02:25 Gram Stain - Preliminary Sputum Sputum Culture - Preliminary 03/16/17 19:00 Urine Culture - Final Urine,Voided 03/16/17 16:30 Blood Culture - Preliminary Blood No Growth after 24 hours Assessment and Plan (1) Free intraperitoneal air Narrative/Plan: Continue antibiotics per Dr. Cox. Continue weaning ventilator as tolerated. Monitor urine output closely. Status: Acute
[2017-03-18 18:04] LABS: Glucose,Whole Blood 134 mg/dL (75-99)
[2017-03-18 20:23] LABS: Glucose,Whole Blood 134 mg/dL (75-99)
[2017-03-18 22:15] LABS: Glucose,Whole Blood 141 mg/dL (75-99)
[2017-03-18] MEDS: NOREPINEPHRIN 16 MG-0.9%NS PMX 16 MG/250 ML ML IV SCH (22:20)
[2017-03-18] MEDS: INSULIN LISPRO (humaLOG) 300 UNIT/3 ML VIAL SQ SCH (23:47)
[2017-03-18 23:49] LABS: Glucose,Whole Blood 140 mg/dL (75-99)
[2017-03-19] MEDS: PROPOFOL 1,000 MG/100 ML VIAL IV SCH ×3 (01:43→19:08)
[2017-03-19] MEDS: IPRATROPIUM-ALBUTEROL 3 ML NEB INHALATION SCH ×6 (03:11→23:15)
[2017-03-19 04:12] LABS: Glucose,Whole Blood 138 mg/dL (75-99)
[2017-03-19] MEDS: INSULIN LISPRO (humaLOG) 300 UNIT/3 ML VIAL SQ SCH ×6 (04:14→23:47)
[2017-03-19 04:23] LABS: Basophils % (A) 0 %; CH 29.4; CHCM 31.7; Eosinophils # (A) 0.1 k/uL (0-0.7); Eosinophils % (A) 0 %; HCT 28.6 % (39.0-53.0); HDW 3.03; Hypochromasia Slight; Luc # (Auto) 0.19; Luc % (Auto) 1; Lymphocytes # (A) 0.9 k/uL (1.0-4.8); Lymphocytes % (A) 5 %; MCH 29.4 pg (25.0-35.0); MCHC 31.4 g/dL (31.0-37.0); MCV 93.6 fL (80.0-100.0); Mean Platelet Volume 10.4; Monocytes # (A) 0.3 k/uL (0-1.0); Monocytes % (A) 2 %; Neutrophils # (A) 15.9 k/uL (1.3-7.7); Neutrophils % (A) 91 %; RBC 3.06 m/uL (4.30-5.90); RDW 15.3 % (11.5-15.5); WBC 17.4 k/uL (3.8-10.6); WBC (Perox) 17.73
[2017-03-19 04:34] LABS: Calcium 7.3 mg/dL (8.4-10.2); Magnesium 2.3 mg/dL (1.6-2.3); Potassium 4.1 mmol/L (3.5-5.1)
[2017-03-19 05:14] LABS: ABG PCO2 24 mmHg (35-45); ABG PH 7.22 (7.35-7.45); ABG PO2 153 mmHg (83-108)
[2017-03-19 05:15] LABS: ABG HCO3 10 mmol/L (21-25); ABG TCO2 10 mmol/L (19-24)
[2017-03-19] MEDS: HYDROmorphone 1 MG/ML 1 ML SYRINGE IVP PRN ×2 (05:29→19:06)
[2017-03-19] MEDS: SODIUM CHLORIDE 0.9% 1,000 ML IV SCH ×3 (06:05→23:46)
[2017-03-19 08:12] LABS: Glucose,Whole Blood 138 mg/dL (75-99)
[2017-03-19] MEDS: HEPARIN SODIUM,PORCINE 5,000 UNIT/ML 1 ML VIAL SQ SCH ×3 (08:12→23:55)
[2017-03-19] MEDS: metroNIDAZOLE-NS PMX 500 MG in SALINE 1 100ML.BAG IVPB SCH ×3 (08:13→23:55)
[2017-03-19] MEDS: CHLORHEXIDINE GLUCONATE 15 ML CUP MUCOUS MEM SCH ×2 (08:16→21:22)
[2017-03-19] MEDS: PANTOPRAZOLE 40 MG/10 ML VIAL IV SCH ×2 (08:19→21:22)
[2017-03-19] MEDS: FLUCONAZOLE IN NACL,ISO-OSM 100 MG in SALINE 1 50ML.BAG IVPB SCH (08:19)
[2017-03-19] MEDS: PIPERACILLIN-TAZOBACTAM 3.375 GM in DEXTROSE/WATER 1 50ML.BAG IVPB SCH ×2 (08:21→21:40)
--- NOTE | 2017-03-19 08:46 | XR ---
EXAMINATION TYPE: XR chest 1V DATE OF EXAM: 03/19/2017 COMPARISON: Prior chest x-ray 03/18/2017 HISTORY: Intubated TECHNIQUE: Single frontal view of the chest is obtained. FINDINGS: Endotracheal tube, NG tube, right jugular central venous catheter, overlying cardiac leads are again noted. No evident pneumothorax. Lung volumes are low and the patient is rotated. Heart siz e is likely stable. Bibasilar density persists. IMPRESSION: There may be basilar effusions and associated atelectasis, correlate to exclude pneumoni a. Rotated expiratory exam. No significant interval change compared to prior exam. Pulmonary artery p rominence may be due to technique. Follow-up suggested.
[2017-03-19 11:57] LABS: Glucose,Whole Blood 158 mg/dL (75-99)
--- NOTE | 2017-03-19 13:17 | CDI ---
In responding to this query, please exercise your independent professional judgment. The [facility] Coding Staff and Clinical Documentation Specialists appreciate your assistance in clarifying documentation, maintaining compliance with coding guidelines, accurately documenting patients condition and capturing severity of illness. The fact that a question is asked does not imply that any particular answer is desired or expected. Communication forms are a method of clarifying documentation and are not made part of the Legal Health Record. Thank you in advance for your clarification. Last Revision, October 2015 Chandu Forbes [address] [place] [address] Documentation Clarification Form Date: 03/19/2017 12:55:00 PM From: More Person RN, CCDS Admit Date: 03/16/2017 6:59:00 PM Patient Name: Michael Braun Visit Number: [id number] Dr. Cassius Lopez History/Risk Factors: DM, CHF Clinical Indicators: 03/18 Surgical Progress Note: "pt remains on ventilator. Continue weaning as tolerated." 03/18 Pulmonary Progress Note: "Continue vent support. No changes on a mechanical ventilator." Severe sepsis with septic shock secondary to perforated gastric ulcer and gangrenous cholecystitis, s/p repair with modified Don patch, open Cholecystectomy , VALE with ATN, , CKD stage 3, lactic acidosis, Vital signs/Pulse oximetry: temp 97.4, HR 128, RR 20, B/P 82/53, Spo2 96% Ra Lung/Breathing assessment: Lungs were clear to auscultation and percussion, and with normal diaphragmatic excursion. No wheezes or rales were noted. ABG/CBG: pH 7.14 pCO2 41 pHCO3 12 Lactate 2.8 Treatment: Breathing TX: Duoneb Q 4 hrs and Q 2 hrs PRN SOB Continuous Pulse ox: in ICU per protocol Vent: Settings as ordered by pulmonary O2- 2l NC pre-op In your professional opinion, can you please clarify if these findings signify one of the following conditions? Acuity: o Acute o Chronic o Acute on Chronic Respiratory Status: o Respiratory failure o Respiratory failure with hypercapnia o Respiratory failure with hypoxia o Acute Respiratory Distress o Other Diagnosis, please specify o Unable to determine In order to accurately reflect this patients severity of illness, please clarify if the post-operative diagnosis is: An expected post-procedural or post-surgical condition Integral to the procedure Inherent to the procedure An unexpected post-procedural or post-surgical condition, related to surgical care Other, please specify Unable to determine Please document in your progress notes and discharge summary in order to capture severity of illness and risk of mortality. Include clinical findings that support your diagnosis. FYI: Press F11 to launch patient chart. Place X here if this finding has no clinical significance, is not applicable or if you are not able to provide any additional documentation. CHANTELLE
--- NOTE | 2017-03-19 13:32 | P.PN ---
Subjective A 66-year-old male patient who came into the intensive care unit after undergoing expiratory laparotomy and repair of a perforated peptic ulcer with a modified Don patch and open cholecystectomy. Surgery was done last night and the patient was brought into the intensive care unit intubated on a mechanical ventilator. According to the reported history the patient was having 3-4 days history of a vague abdominal pain. This being gradually got worse. The patient was also having constipation. He had some nausea without vomiting. Appetite was diminished. No bright red blood per rectum. The pain was mainly over the central abdomen. No history of any peptic ulcer disease or diverticular disease. The x-ray of the abdomen in the emergency department showed pneumoperitoneum and the CAT scan confirmed the presence of a large volume of free air. The gallbladder was also thickened. The majority of the air was in the upper abdomen. Intraoperatively, the patient was found to have a perforated peptic ulcer and a gangrenous gallbladder. The patient is currently in the intensive care unit. The patient has received a total of 7 L of IV fluids. He has chronic renal failure and had developed acute kidney injury on top of chronic renal insufficiency and currently is oliguric producing only 5-10 mL an hour of urine output. The patient is intubated on a mechanical ventilator. The patient on assist control mode at the rate of 10, tidal volume 450, FiO2 of 40% and a PEEP of 5. His blood. From this morning showed a pH of 7.31 with a pCO2 of 27 and pO2 of 198 and based on that the FiO2 was weaned down. Chest x-ray shows no pneumothorax or pneumoperitoneum. ET tube is in a good location. Hemodynamically, the patient was doing poorly. He was in septic shock. He was tachycardic with a heart rate in the 1:30 range. This improved with fluid resuscitation his current heart rate is sinus at 110. He also was on higher doses of pressors and norepinephrine infusion was running at 25 mics and currently is down to 50 mics. He is covered with a combination of IV Zosyn, IV Diflucan and IV Flagyl. He is afebrile for now. Is sedated with Diprivan. He has a below-knee amputation on the right lower extremity and the feet on the left lower extremity shows marked diminished pulses at is obtainable by Doppler. Lactic acid level was 5.4 at time of admission is currently down to 2.7. He has a right IJ triple-lumen catheter. He has a right upper extremity radial art line. He also has a LOUISA drain in his right lower quadrant area. On 03/18/2017 I'm seeing this patient in the follow-up. The patient remains intubated on a mechanical ventilator. He remains an assist-control mode of ventilation at a tidal volume 450, rate of 24, FiO2 of 40% and a PEEP of 5. His blood gases from this morning showed a pH of 7.26 with a pCO2 of 30 and pO2 of 155. Chest x-ray from this morning shows small bilateral pleural effusions, ET tube is in a good location, NG tube is in a good location and there is no acute pulmonary infiltrates or consolidations. Hemodynamically, the patient is still pressor dependent at 15 mics. Overnight he had to be as high as 20 mics and then he got weaned again down to 15 g of norepinephrine infusion. Urine output is gradually improving. Over the past 12 hours he produced approximately 50 mL of urine output. The patient is still having intermittent renal function and the creatinine still elevated at 4.8 which is comparable to yesterday. Rest of the electrodes are within normal. The patient is still acidotic with a bicarb level of 13. He received a total of 3 L of normal saline and 2 A of 12.5 g of albumin. He is still on a combination of Zosyn, Flagyl and Diflucan. All of the cultures of been negative. He remains nothing by mouth. Surgical wound site is clean and intact. LOUISA drain is draining approximately 50 mL of serosanguineous material. On 03/19/2017 the patient remains intubated on a mechanical ventilator. He is still respiratory failure. He is still in shock. He remains assist-control mode of ventilation with essentially the same vent settings. He is still requiring pressors and levo fed is running somewhere between 8-10 mics. He is afebrile. Echocardiogram was done at the bedside and showed a preserved LV function without any signs of heart failure. Remains sedated on Diprivan. A sedation holiday will be given to him today and try to lower down agree off sedation if possible. Remains on broad-spectrum antibiotics. Surgical wound site is dry clean and intact. Continues to be an acute kidney injury on top of chronic renal failure. No major improvement in the renal function although the patient has become nonoliguric at this point. He is producing adequate amount of urine output. His been aggressively resuscitated IV fluids and colloids and he is in a positive fluid balance and he has demonstrated some edema both in the upper and lower extremities. He remains acidotic. A follow-up lactic acid level will be obtained. Remains nothing by mouth. No clearance from surgery for enteral feeding. No TPN initiated yet. Objective - Vital Signs Vital signs: Vital Signs Temp 98.7 F 03/19/17 12:00 Pulse 102 H 03/19/17 12:00 Resp 19 03/19/17 12:00 BP 125/57 03/19/17 12:00 Pulse Ox 99 03/19/17 12:00 Intake & Output 03/18/17 03/19/17 03/19/17 18:59 06:59 18:59 Intake Total 3284.094 4900.978 5834.135 Output Total 465 598 220 Balance 2819.094 1102.703 838.135 Weight 95.2 kg Intake: IV 625 1300.0 425.0 0.9 625 Piperacillin-Tazobactam 3 50.0 50.0 .375 gm In Dextrose/Water 1 50ml.bag @ 12.5 mls/hr IVPB Q12HR XENA Rx#: [id number] Sodium Chloride 0.9% 1, 1250 375 000 ml @ 125 mls/hr IV . Q8H XENA Rx#:[id number] Intake, IV Titration 2659.094 400.703 633.135 Amount Albumin Human 5% 500 ml 500 In Empty Bag 1 bag @ 250 mls/hr IVPB ONCE ONE Rx#: [id number] Albumin Human 5% 500 ml 500 In Empty Bag 1 bag @ 250 mls/hr IVPB ONCE ONE Rx#: [id number] DAPTOmycin 500 mg In 50 Sodium Chloride 0.9% 50 ml @ 100 mls/hr IV Q48H XENA Rx#:[id number] Fluconazole in NaCl,Iso- 50 50 Osm 100 mg In Saline 1 50ml.bag @ 50 mls/hr IVPB DAILY XENA Rx#:[id number] Norepinephrin 16 mg-0.9% 199.695 100.636 42.906 Ns Pmx 16 mg In 250 ml @ Titrate IV .Q0M XENA Rx#: [id number] Piperacillin-Tazobactam 3 12.5 .375 gm In Dextrose/Water 1 50ml.bag @ 12.5 mls/hr IVPB Q12HR XENA Rx#: [id number] Piperacillin-Tazobactam 3 12.5 .375 gm In Dextrose/Water 1 50ml.bag @ 12.5 mls/hr IVPB Q8HR XENA Rx#: [id number] Potassium Chloride 10 meq 200 Lidocaine 2% Inj 10 mg In Sodium Chloride 0.9% 100 ml @ 100 mls/hr IV Q1HR XENA Rx#:[id number] Propofol 1,000 mg In 100 184.399 175.067 65.229 ml @ Titrate IV .Q0M XENA Rx#:[id number] Sodium Chloride 0.9% 1, 750 125 375 000 ml @ 125 mls/hr IV . Q8H XENA Rx#:[id number] metroNIDAZOLE-NS PMX 500 200 100 mg In Saline 1 100ml.bag @ 100 mls/hr IVPB Q8HR XENA Rx#:[id number] Output: Gastric Drainage 100 Drainage 5 5 5 Right Upper Abdomen 5 5 5 Urine 360 593 215 Stool 0 0 0 Other: Voiding Method Indwelling Catheter Indwelling Catheter Indwelling Catheter ABP, PAP, CO, CI - Last Documented Arterial Blood Pressure 100/40 - Exam Patient is sedated, comfortable and tolerating the mechanical ventilator.Head exam was generally normal. There was no scleral icterus or corneal arcus. Mucous membranes were moist. Neck is supple and the patient has a right IJ triple-lumen catheter. The patient also has an orogastric and NG tube in place.Lungs were clear to auscultation and percussion, and with normal diaphragmatic excursion. No wheezes or rales were noted. Cardiac exam revealed the PMI to be normally situated and sized. The rhythm was regular and no extrasystoles were noted during several minutes of auscultation. The first and second heart sounds were normal and physiologic splitting of the second heart sound was noted. There were no murmurs, rubs, clicks, or gallops. Abdomen is soft. Bowel sounds are absent. There is a midabdominal large skin wound which is dry clean and intact and the patient has a right lower quadrant LOUISA drain in place. No ascites. Extremities show below-knee amputation on the right, 4 of the toes are missing in the left foot with diminished pulses at the obtained by Doppler signal. Neurologically the patient is sedated. He can withdraw to deep painful stimuli. - Labs CBC & Chem 7: 03/19/17 04:10 03/19/17 04:10 Labs: Abnormal Lab Results - Last 24 Hours (Table) 03/18/17 03/18/17 03/18/17 Range/Units 13:58 16:02 18:01 WBC (3.8-10.6) k/uL RBC (4.30-5.90) m/uL Hgb (13.0-17.5) gm/dL Hct (39.0-53.0) % Plt Count (150-450) k/uL Neutrophils # (1.3-7.7) k/uL Lymphocytes # (1.0-4.8) k/uL ABG pH (7.35-7.45) ABG pCO2 (35-45) mmHg ABG pO2 (83-108) mmHg ABG HCO3 (21-25) mmol/L ABG Total CO2 (19-24) mmol/L ABG O2 Saturation (94-97) % Chloride (98-107) mmol/L Carbon Dioxide (22-30) mmol/L BUN (9-20) mg/dL Creatinine (0.66-1.25) mg/dL Glucose (74-99) mg/dL POC Glucose (mg/dL) 132 H 130 H 134 H (75-99) mg/dL Calcium (8.4-10.2) mg/dL 03/18/17 03/18/17 03/18/17 Range/Units 20:22 22:14 23:46 WBC (3.8-10.6) k/uL RBC (4.30-5.90) m/uL Hgb (13.0-17.5) gm/dL Hct (39.0-53.0) % Plt Count (150-450) k/uL Neutrophils # (1.3-7.7) k/uL Lymphocytes # (1.0-4.8) k/uL ABG pH (7.35-7.45) ABG pCO2 (35-45) mmHg ABG pO2 (83-108) mmHg ABG HCO3 (21-25) mmol/L ABG Total CO2 (19-24) mmol/L ABG O2 Saturation (94-97) % Chloride (98-107) mmol/L Carbon Dioxide (22-30) mmol/L BUN (9-20) mg/dL Creatinine (0.66-1.25) mg/dL Glucose (74-99) mg/dL POC Glucose (mg/dL) 134 H 141 H 140 H (75-99) mg/dL Calcium (8.4-10.2) mg/dL 03/19/17 03/19/17 03/19/17 Range/Units 04:10 04:10 04:10 WBC 17.4 H (3.8-10.6) k/uL RBC 3.06 L (4.30-5.90) m/uL Hgb 9.0 L (13.0-17.5) gm/dL Hct 28.6 L (39.0-53.0) % Plt Count 122 L (150-450) k/uL Neutrophils # 15.9 H (1.3-7.7) k/uL Lymphocytes # 0.9 L (1.0-4.8) k/uL ABG pH (7.35-7.45) ABG pCO2 (35-45) mmHg ABG pO2 (83-108) mmHg ABG HCO3 (21-25) mmol/L ABG Total CO2 (19-24) mmol/L ABG O2 Saturation (94-97) % Chloride 118 H (98-107) mmol/L Carbon Dioxide 9 L* (22-30) mmol/L BUN 84 H* (9-20) mg/dL Creatinine 4.70 H (0.66-1.25) mg/dL Glucose 133 H (74-99) mg/dL POC Glucose (mg/dL) 138 H (75-99) mg/dL Calcium 7.3 L (8.4-10.2) mg/dL 03/19/17 03/19/17 03/19/17 Range/Units 05:00 08:10 11:56 WBC (3.8-10.6) k/uL RBC (4.30-5.90) m/uL Hgb (13.0-17.5) gm/dL Hct (39.0-53.0) % Plt Count (150-450) k/uL Neutrophils # (1.3-7.7) k/uL Lymphocytes # (1.0-4.8) k/uL ABG pH 7.22 L (7.35-7.45) ABG pCO2 24 L (35-45) mmHg ABG pO2 153 H (83-108) mmHg ABG HCO3 10 L* (21-25) mmol/L ABG Total CO2 10 L (19-24) mmol/L ABG O2 Saturation 99.0 H (94-97) % Chloride (98-107) mmol/L Carbon Dioxide (22-30) mmol/L BUN (9-20) mg/dL Creatinine (0.66-1.25) mg/dL Glucose (74-99) mg/dL POC Glucose (mg/dL) 138 H 158 H (75-99) mg/dL Calcium (8.4-10.2) mg/dL Microbiology - Last 24 Hours (Table) 03/18/17 02:25 Gram Stain - Preliminary Sputum Sputum Culture - Preliminary Presumptive Staph aureus 03/16/17 16:30 Blood Culture - Preliminary Blood No Growth after 48 hours Assessment and Plan Plan: Assessment 1 acute abdomen status post extra laparotomy and repair of a perforated peptic ulcer a modified Don patch and open cholecystectomy. Patient is postop day # 3. 2 shock likely septic in nature secondary to intra-abdominal sepsis complicated by perforated peptic ulcer and cholecystitis. Patient remains pressor dependent. 3 hypotension secondary to above still , on pressors 4 acute respiratory failure, a complication of septic shock.. Remains intubated on a mechanical ventilator. Oxygen awaiting and ventilating well. 5 acute kidney injury on top of chronic renal failure. The patient has stage II kidney disease at baseline due to diabetic nephropathy. Acute kidney injury related to hypotension/sepsis due to ATN. The patient remains in acute kidney injury. The patient is nonoliguric. Creatinine is elevated at 4.7. Rest of the electrodes are within normal. He remains to be acidotic. 6 acute lactic acidosis, improving, and still he has a component of metabolic acidosis on today's blood work. 7 diabetes mellitus with poorly controlled blood sugar secondary to sepsis currently on insulin drip for blood sugar control. 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 Plan Recheck lactic acid level. Continue vent support. Continue antibiotics. Continue pressors. We'll discuss the case with surgery. May benefit from TPN if no enteral feeding will be initiated over the next 24-48 hours. May consider repeating the CAT scan of the abdomen and pelvis if no improvement in his hemodynamics over the next 24-48 hours. Otherwise, continue the supportive care. May switch this IV fluids to sodium acetate to improve his metabolic acidosis if the lactic acid level comes back within normal. Critically care evaluation that was done and 35 minutes. Time with Patient: Greater than 30
[2017-03-19 15:23] LABS: Glucose,Whole Blood 140 mg/dL (75-99)
[2017-03-19 19:16] LABS: Glucose,Whole Blood 134 mg/dL (75-99)
[2017-03-19 20:15] LABS: Glucose,Whole Blood 127 mg/dL (75-99)
--- NOTE | 2017-03-19 22:50 | P.PN ---
Subjective Principal diagnosis: Perforated peptic ulcer Patient remains on the ventilator. Levophed requirements decreased. Better urine output. LOUISA drain remained serosanguineous. Objective - Vital Signs Vital signs: Vital Signs Temp 98.9 F 03/19/17 19:00 Pulse 102 H 03/19/17 19:54 Resp 22 03/19/17 19:00 BP 119/44 03/19/17 17:00 Pulse Ox 99 03/19/17 19:00 Intake & Output 03/19/17 03/19/17 03/20/17 06:59 18:59 06:59 Intake Total 8258.932 7725.250 125 Output Total 598 420 73 Balance 2238.730 3964.250 52 Weight 95.2 kg Intake: IV 1300.0 675.0 125 Piperacillin-Tazobactam 3 50.0 50.0 .375 gm In Dextrose/Water 1 50ml.bag @ 12.5 mls/hr IVPB Q12HR XENA Rx#: [id number] Sodium Chloride 0.9% 1, 1250 625 125 000 ml @ 125 mls/hr IV . Q8H XENA Rx#:[id number] Intake, IV Titration 022.833 9695.250 Amount Fluconazole in NaCl,Iso- 50 Osm 100 mg In Saline 1 50ml.bag @ 50 mls/hr IVPB DAILY XENA Rx#:[id number] Norepinephrin 16 mg-0.9% 100.636 60.250 Ns Pmx 16 mg In 250 ml @ Titrate IV .Q0M XENA Rx#: [id number] Propofol 1,000 mg In 100 175.067 100.000 ml @ Titrate IV .Q0M XENA Rx#:[id number] Sodium Chloride 0.9% 1, 125 875 000 ml @ 125 mls/hr IV . Q8H XENA Rx#:[id number] metroNIDAZOLE-NS PMX 500 100 mg In Saline 1 100ml.bag @ 100 mls/hr IVPB Q8HR XENA Rx#:[id number] Output: Gastric Drainage 50 Drainage 5 5 Right Upper Abdomen 5 5 Urine 593 415 23 Stool 0 0 Other: Voiding Method Indwelling Catheter Indwelling Catheter ABP, PAP, CO, CI - Last Documented Arterial Blood Pressure 123/51 - Exam Abdomen: Soft, mild distention, nontender, no erythema, wounds clean - Labs CBC & Chem 7: 03/19/17 04:10 03/19/17 04:10 Labs: Abnormal Lab Results - Last 24 Hours (Table) 03/18/17 03/19/17 03/19/17 Range/Units 23:46 04:10 04:10 WBC 17.4 H (3.8-10.6) k/uL RBC 3.06 L (4.30-5.90) m/uL Hgb 9.0 L (13.0-17.5) gm/dL Hct 28.6 L (39.0-53.0) % Plt Count 122 L (150-450) k/uL Neutrophils # 15.9 H (1.3-7.7) k/uL Lymphocytes # 0.9 L (1.0-4.8) k/uL ABG pH (7.35-7.45) ABG pCO2 (35-45) mmHg ABG pO2 (83-108) mmHg ABG HCO3 (21-25) mmol/L ABG Total CO2 (19-24) mmol/L ABG O2 Saturation (94-97) % Chloride 118 H (98-107) mmol/L Carbon Dioxide 9 L* (22-30) mmol/L BUN 84 H* (9-20) mg/dL Creatinine 4.70 H (0.66-1.25) mg/dL Glucose 133 H (74-99) mg/dL POC Glucose (mg/dL) 140 H (75-99) mg/dL Calcium 7.3 L (8.4-10.2) mg/dL 03/19/17 03/19/17 03/19/17 Range/Units 04:10 05:00 08:10 WBC (3.8-10.6) k/uL RBC (4.30-5.90) m/uL Hgb (13.0-17.5) gm/dL Hct (39.0-53.0) % Plt Count (150-450) k/uL Neutrophils # (1.3-7.7) k/uL Lymphocytes # (1.0-4.8) k/uL ABG pH 7.22 L (7.35-7.45) ABG pCO2 24 L (35-45) mmHg ABG pO2 153 H (83-108) mmHg ABG HCO3 10 L* (21-25) mmol/L ABG Total CO2 10 L (19-24) mmol/L ABG O2 Saturation 99.0 H (94-97) % Chloride (98-107) mmol/L Carbon Dioxide (22-30) mmol/L BUN (9-20) mg/dL Creatinine (0.66-1.25) mg/dL Glucose (74-99) mg/dL POC Glucose (mg/dL) 138 H 138 H (75-99) mg/dL Calcium (8.4-10.2) mg/dL 03/19/17 03/19/17 03/19/17 Range/Units 11:56 15:21 19:15 WBC (3.8-10.6) k/uL RBC (4.30-5.90) m/uL Hgb (13.0-17.5) gm/dL Hct (39.0-53.0) % Plt Count (150-450) k/uL Neutrophils # (1.3-7.7) k/uL Lymphocytes # (1.0-4.8) k/uL ABG pH (7.35-7.45) ABG pCO2 (35-45) mmHg ABG pO2 (83-108) mmHg ABG HCO3 (21-25) mmol/L ABG Total CO2 (19-24) mmol/L ABG O2 Saturation (94-97) % Chloride (98-107) mmol/L Carbon Dioxide (22-30) mmol/L BUN (9-20) mg/dL Creatinine (0.66-1.25) mg/dL Glucose (74-99) mg/dL POC Glucose (mg/dL) 158 H 140 H 134 H (75-99) mg/dL Calcium (8.4-10.2) mg/dL 03/19/17 Range/Units 20:13 WBC (3.8-10.6) k/uL RBC (4.30-5.90) m/uL Hgb (13.0-17.5) gm/dL Hct (39.0-53.0) % Plt Count (150-450) k/uL Neutrophils # (1.3-7.7) k/uL Lymphocytes # (1.0-4.8) k/uL ABG pH (7.35-7.45) ABG pCO2 (35-45) mmHg ABG pO2 (83-108) mmHg ABG HCO3 (21-25) mmol/L ABG Total CO2 (19-24) mmol/L ABG O2 Saturation (94-97) % Chloride (98-107) mmol/L Carbon Dioxide (22-30) mmol/L BUN (9-20) mg/dL Creatinine (0.66-1.25) mg/dL Glucose (74-99) mg/dL POC Glucose (mg/dL) 127 H (75-99) mg/dL Calcium (8.4-10.2) mg/dL Microbiology - Last 24 Hours (Table) 03/16/17 16:30 Blood Culture - Preliminary Blood No Growth after 72 hours 03/18/17 02:25 Gram Stain - Preliminary Sputum Sputum Culture - Preliminary Presumptive Staph aureus Assessment and Plan (1) Free intraperitoneal air Narrative/Plan: Continue nothing by mouth. Wean ventilator. IV antibiotics. Status: Acute
[2017-03-19 23:47] LABS: Glucose,Whole Blood 123 mg/dL (75-99)
[2017-03-20] MEDS: HYDROmorphone 1 MG/ML 1 ML SYRINGE IVP PRN ×5 (02:35→22:14)
[2017-03-20] MEDS: IPRATROPIUM-ALBUTEROL 3 ML NEB INHALATION SCH ×6 (03:06→23:31)
[2017-03-20 03:55] LABS: Glucose,Whole Blood 127 mg/dL (75-99)
[2017-03-20] MEDS: INSULIN LISPRO (humaLOG) 300 UNIT/3 ML VIAL SQ SCH ×6 (04:00→23:59)
[2017-03-20 04:35] LABS: ABG HCO3 10 mmol/L (21-25); ABG PCO2 26 mmHg (35-45); ABG PO2 170 mmHg (83-108); ABG TCO2 11 mmol/L (19-24)
[2017-03-20 04:36] LABS: ABG Base Excess -16.7 mmol/L
[2017-03-20] MEDS: PROPOFOL 1,000 MG/100 ML VIAL IV SCH (04:38)
[2017-03-20 04:52] LABS: Basophils % (A) 0 %; CH 28.5; CHCM 31.4; Eosinophils # (A) 0.2 k/uL (0-0.7); Eosinophils % (A) 1 %; HCT 26.8 % (39.0-53.0); HDW 3.16; HGB 8.5 gm/dL (13.0-17.5); Hypochromasia Slight; Luc % (Auto) 1; Lymphocytes % (A) 5 %; MCH 29.2 pg (25.0-35.0); MCHC 31.8 g/dL (31.0-37.0); MCV 91.8 fL (80.0-100.0); Mean Platelet Volume 9.5; Monocytes # (A) 0.5 k/uL (0-1.0); Monocytes % (A) 2 %; Neutrophils # (A) 18.6 k/uL (1.3-7.7); Neutrophils % (A) 91 %; RBC 2.92 m/uL (4.30-5.90); RDW 15.5 % (11.5-15.5); WBC 20.4 k/uL (3.8-10.6); WBC (Perox) 20.86
[2017-03-20 05:10] LABS: Calcium 7.3 mg/dL (8.4-10.2); Magnesium 2.2 mg/dL (1.6-2.3); Phosphorous 4.9 mg/dL (2.5-4.5); Potassium 4.2 mmol/L (3.5-5.1)
[2017-03-20] MEDS: SODIUM CHLORIDE 0.9% 1,000 ML IV SCH ×2 (05:40→12:20)
--- NOTE | 2017-03-20 07:41 | XR ---
EXAMINATION TYPE: XR chest 1V DATE OF EXAM: 03/20/2017 CLINICAL HISTORY: Difficulty breathing progress study. TECHNIQUE: Single AP portable semiupright view of the chest is obtained. COMPARISON: Chest x-ray from one day earlier FINDINGS: An endotracheal tube, orogastric tube, right internal jugular central venous catheter are stable in appearance. There is persistent low lung volumes with bibasilar opacity felt to reflect inf iltrate and/or atelectasis and probable small bilateral pleural effusions. Upper lungs remain clear w ithout pneumothorax. Cardiac silhouette size is stable and upper limits of normal. Osseous structures are intact. IMPRESSION: Overall stable findings, low lung volumes with small bilateral pleural effusions and bi basilar atelectasis and/or infiltrates all redemonstrated.
--- NOTE | 2017-03-20 07:44 | ECHOF ---
Referral Reason:hypotension, sepsis MEASUREMENTS -------- HEIGHT: 182.9 cm WEIGHT: 94.8 kg BP: 121/40 IVSd: 1.2 cm (0.6 - 1.1) LVIDd: 4.3 cm (3.9 - 5.3) LVPWd: 1.4 cm (0.6 - 1.1) IVSs: 1.6 cm LVIDs: 2.0 cm LVPWs: 1.9 cm Ao Diam: 3.6 cm (2.0 - 3.7) AV Cusp: 2.3 cm (1.5 - 2.6) LA Diam: 3.9 cm (2.7 - 3.8) MV EXCURSION: 14.056 mm (> 18.000) MV EF SLOPE: 38 mm/s (70 - 150) EPSS: 1.0 cm MV E Júnior: 1.06 m/s MV DecT: 185 ms MV A Júnior: 1.30 m/s MV E/A Ratio: 0.82 RAP: 5.00 mmHg RVSP: 10.02 mmHg FINDINGS -------- Resting tachycardia (HR>100bpm). This was a technically good study. Pt. on a vent. There is mild concentric left ventricular hypertrophy. Overall left ventricular systolic function is normal with, an EF between 55 - 60 %. The right ventricle is normal in size and function. The left atrium is normal in size. The right atrium is normal in size. The aortic valve is trileaflet, and appears structurally normal. No aortic stenosis or regurgitation. There is trace mitral regurgitation. Trace tricuspid regurgitation present. The right ventricular systolic pressure, as measured by Doppler, is 10.02mmHg. Pulmonic valve appears structurally normal. The aortic root size is normal. The pericardium is normal. CONCLUSIONS -------- 1. Resting tachycardia (HR>100bpm). 2. There is trace mitral regurgitation. 3. Trace tricuspid regurgitation present. 4. The right ventricular systolic pressure, as measured by Doppler, is 10.02mmHg. 5. Pulmonic valve appears structurally normal. 6. The aortic root size is normal. 7. The pericardium is normal. 8. This was a technically good study. 9. Pt. on a vent. 10. There is mild concentric left ventricular hypertrophy. 11. Overall left ventricular systolic function is normal with, an EF between 55 - 60 %. 12. The right ventricle is normal in size and function. 13. The left atrium is normal in size. 14. The right atrium is normal in size. 15. The aortic valve is trileaflet, and appears structurally normal. No aortic stenosis or regurgitation. DEFENSIVE LINE COACH: Rosa Quinteros RDCS
[2017-03-20] MEDS: metroNIDAZOLE-NS PMX 500 MG in SALINE 1 100ML.BAG IVPB SCH ×2 (08:33→16:52)
[2017-03-20] MEDS: FLUCONAZOLE IN NACL,ISO-OSM 100 MG in SALINE 1 50ML.BAG IVPB SCH (08:34)
[2017-03-20] MEDS: PIPERACILLIN-TAZOBACTAM 3.375 GM in DEXTROSE/WATER 1 50ML.BAG IVPB SCH ×2 (08:34→20:34)
[2017-03-20] MEDS: PANTOPRAZOLE 40 MG/10 ML VIAL IV SCH ×2 (08:34→20:33)
[2017-03-20] MEDS: HEPARIN SODIUM,PORCINE 5,000 UNIT/ML 1 ML VIAL SQ SCH ×3 (08:35→23:59)
[2017-03-20 08:41] LABS: Glucose,Whole Blood 137 mg/dL (75-99)
[2017-03-20] MEDS: CHLORHEXIDINE GLUCONATE 15 ML CUP MUCOUS MEM SCH ×2 (08:52→20:33)
[2017-03-20] MEDS ORDERED: IV VANCOMYCIN PER PHARMACY 1 EACH MISC MISCELLANE PRN (10:33)
[2017-03-20] MEDS ORDERED: VANCOMYCIN 2,000 MG in SODIUM CHLORIDE 0.9% 500 ML IVPB ONE (11:15)
[2017-03-20 11:39] LABS: ABG PCO2 25 mmHg (35-45); ABG PH 7.23 (7.35-7.45); ABG PO2 164 mmHg (83-108)
[2017-03-20 11:40] LABS: ABG Base Excess -15.8 mmol/L; ABG HCO3 10 mmol/L (21-25); ABG Oxygen Saturation 99.2 % (94-97); ABG TCO2 11 mmol/L (19-24)
[2017-03-20] MEDS ORDERED: MVI, ADULT NO.4 WITH VIT K 10 ML, TRACE (CONC-1ML/DOSE) 1 ML, PARENTERAL ELECTROLYTES 2... IV ONE ×4 (12:00)
[2017-03-20 12:12] LABS: Glucose,Whole Blood 102 mg/dL (75-99)
[2017-03-20 12:24] LABS: Ionized Calcium 5.2 mg/dL (4.5-5.3)
[2017-03-20 12:35] LABS: Calcium 7.4 mg/dL (8.4-10.2); Total Bilirubin 1.5 mg/dL (0.2-1.3); Total Protein 3.4 g/dL (6.3-8.2)
[2017-03-20] MEDS ORDERED: DEXTROSE 5% IN WATER 1,000 ML with SOD BICARB SYR 8.4% (1 MEQ/ML) 150 ML IV SCH (14:30)
--- NOTE | 2017-03-20 14:41 | P.NPCON ---
History of Present Illness - Reason for Consult acute renal failure - History of Present Illness Reason for consultation: Acute kidney injury History of present illness: Patient is a 66-year-old male seen in renal consultation for acute kidney injury on chronic kidney disease. It appears patient has chronic kidney disease with creatinine near 2.4 from July 2016. It was elevated at 5.9 this admission and is down to 4.4 this morning. Patient presented with abdominal pain. He was noted to have pneumoperitoneum with a perforated peptic ulcer and underwent exploratory laparotomy and open cholecystectomy on March 16. He is currently on 2 mics of levo fed. He was hypotensive on admission with systolic blood pressure in the 80s which is now improved. He is noted to have MRSA in the sputum as well. He is nonoliguric with urine output about 50 mL an hour. He is currently intubated. He was started on TPN this morning. He remains acidotic with a bicarb level of 10. Lactic acidosis has resolved. Vital signs are stable. General: The patient appeared well nourished and normally developed. OG tube in place. HEENT: Head exam is unremarkable. Neck is without jugular venous distension. LUNGS: Lungs are clear to auscultation and percussion. Breath sounds decreased. HEART: Rate and Rhythm are regular. First and second heart sounds normal. No murmurs, rubs or gallops. ABDOMEN: Bowel sounds present. EXTREMITITES: No clubbing, cyanosis, or edema. Right below the knee amputation noted. 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 Right BKA; Skin cancer removed: back of neck, upper back, Past Anesthesia/Blood Transfusion Reactions: No Reported Reaction Past Psychological History: No Psychological Hx Reported Smoking Status: Never smoker Past Alcohol Use History: None Reported Additional Past Alcohol Use History / Comment(s): . Past Drug Use History: None Reported - Past Family History Mother Family Medical History: Diabetes Mellitus, Renal Disease Father Family Medical History: Congestive Heart Failure (CHF) Brother(s) Family Medical History: No Reported History Sister(s) Family Medical History: No Reported History Medications and Allergies Home Medications Medication Instructions Recorded Confirmed Type Ferrous Sulfate [Iron (65 MG 325 mg PO QAM 05/13/16 03/16/17 History Elemental)] Lactobacillus Acidophilus 1 tab PO BID 05/19/16 03/16/17 History [Acidophilus] Omeprazole 20 mg PO DAILY 05/29/16 03/17/17 History Furosemide [Lasix] 20 mg PO DAILY@1200 07/29/16 03/17/17 History Furosemide [Lasix] 40 mg PO DAILY@0600 07/29/16 03/17/17 History Carvedilol [Coreg] 6.25 mg PO BID@0900,1700 03/16/17 03/16/17 History Eviredge 150 mg PO HS 03/16/17 03/16/17 History HYDROcodone/APAP 5-325MG [Hersey 1 tab PO Q6H PRN 03/16/17 03/16/17 History 5-325] Insulin Aspart [NovoLOG Flexpen] 6 units SQ AC-TID 03/16/17 03/16/17 History Insulin Glargine,Hum.rec.anlog 8 unit SQ 03/16/17 03/16/17 History [Basaglar Kwikpen U-100] hydrALAZINE HCL [Apresoline] 25 mg PO TID@0900,1300,1700 03/16/17 03/16/17 History Allergies Allergy/AdvReac Type Severity Reaction Status Date / Time No Known Allergies Allergy Verified 03/16/17 17:03 Physical Exam Vitals: Vital Signs Temp Pulse Resp BP Pulse Ox 03/20/17 14:00 98 24 100 03/20/17 13:00 105 H 24 99 03/20/17 12:00 98.8 F 108 H 26 H 100 08/10/17 11:54 94 03/20/17 11:44 90 03/20/17 11:00 109 H 24 100 03/20/17 10:00 97 24 100 03/20/17 09:00 112 H 24 100 03/20/17 08:00 98.2 F 100 29 H 100 03/20/17 07:56 94 03/20/17 07:45 91 03/20/17 07:00 97 24 100 03/20/17 06:00 89 24 100 03/20/17 05:00 89 27 H 100 03/20/17 04:00 98.3 F 95 24 100 03/20/17 03:25 96 03/20/17 03:06 100 03/20/17 03:00 101 H 24 99 03/20/17 02:00 91 24 99 03/20/17 01:00 93 24 99 03/20/17 00:00 98.2 F 98 24 100 03/19/17 23:35 92 03/19/17 23:16 94 03/19/17 23:00 90 24 99 03/19/17 22:00 91 24 99 03/19/17 21:00 92 24 100/56 99 03/19/17 20:00 98.1 F 96 24 100/56 99 03/19/17 19:54 102 H 03/19/17 19:41 100 03/19/17 19:00 98.9 F 103 H 22 99 03/19/17 18:00 105 H 17 99 03/19/17 17:00 103 H 12 119/44 99 03/19/17 16:04 104 H 03/19/17 16:00 99.3 F 103 H 5 L 119/44 99 03/19/17 15:40 106 H 03/19/17 15:00 106 H 11 L 99 Intake and Output 03/19/17 03/20/17 03/20/17 22:59 06:59 14:59 Intake Total 0088.964 6040.085 1468.11 Output Total 309 604 565 Balance 725.771 816.085 903.11 Intake: IV 500 1275.0 940.0 Piperacillin-Tazobactam 3 50.0 50.0 .375 gm In Dextrose/Water 1 50ml.bag @ 12.5 mls/hr IVPB Q12HR [facility] Rx#: [id number] Sodium Chloride 0.9% 1, 500 1125 790 000 ml @ 40 mls/hr IV . Q24H [facility] Rx#:[id number] metroNIDAZOLE-NS PMX 500 100 100 mg In Saline 1 100ml.bag @ 100 mls/hr IVPB Q8HR [facility] Rx#:[id number] Intake, IV Titration 534.771 145.085 528.11 Amount Fluconazole in NaCl,Iso- 50 Osm 100 mg In Saline 1 50ml.bag @ 50 mls/hr IVPB DAILY [facility] Rx#:[id number] Norepinephrin 16 mg-0.9% 72.562 16.5 Ns Pmx 16 mg In 250 ml @ Titrate IV .Q0M [facility] Rx#: [id number] Propofol 1,000 mg In 100 34.771 72.523 27.61 ml @ Titrate IV .Q0M [facility] Rx#:[id number] Sodium Chloride 0.9% 1, 500 000 ml @ 40 mls/hr IV . Q24H [facility] Rx#:[id number] Vancomycin 2,000 mg In 334 Sodium Chloride 0.9% 500 ml @ 167 mls/hr IVPB ONCE ONE Rx#:[id number] metroNIDAZOLE-NS PMX 500 100 mg In Saline 1 100ml.bag @ 100 mls/hr IVPB Q8HR [facility] Rx#:[id number] Output: Gastric Drainage 50 150 Drainage 105 25 Right Upper Abdomen 105 25 Urine 259 349 440 Stool 0 0 Emesis 100 Other: Voiding Method Indwelling Catheter Indwelling Catheter Indwelling Catheter Weight 96.5 kg 96.5 kg Patient Weight 03/21/17 06:59 Weight 96.5 kg ABP, PAP, CO, CI - Last 8 Hours Arterial Blood Pressure 148/46 Arterial Blood Pressure 121/44 Arterial Blood Pressure 108/45 Arterial Blood Pressure 134/50 Arterial Blood Pressure 127/50 Arterial Blood Pressure 142/51 Arterial Blood Pressure 128/47 Arterial Blood Pressure 130/48 Results - Lab Results Most recent lab results ABG pH 7.23 (7.35-7.45) L 03/20/17 11:29 ABG pCO2 25 mmHg (35-45) L 03/20/17 11:29 ABG pO2 164 mmHg (83-108) H 03/20/17 11:29 ABG HCO3 10 mmol/L (21-25) L* 03/20/17 11:29 ABG O2 Saturation 99.2 % (94-97) H 03/20/17 11:29 Calcium 7.4 mg/dL (8.4-10.2) L 03/20/17 11:36 Phosphorus 4.9 mg/dL (2.5-4.5) H 03/20/17 04:45 Magnesium 2.2 mg/dL (1.6-2.3) 03/20/17 04:45 03/20/17 04:45 03/20/17 11:36 Assessment and Plan Plan: Assessment: #1. Nonoliguric acute kidney injury secondary to ischemic ATN secondary to hypotension and sepsis. Renal function improving with creatinine down to 4.41 today. #2. Perforated peptic ulcer status post exploratory laparotomy and open cholecystectomy on March 16. #3. Metabolic acidosis with respiratory compensation secondary to acute kidney injury and IV fluids. #4. Hypotension secondary to sepsis maintained on vasopressors. #5. Postoperative anemia. #6. Sepsis secondary to perforated ulcer and gangrenous cholecystitis. Sputum culture positive for MRSA. #7. 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 Etiology is likely diabetic kidney disease. Plan: Start isotonic sodium bicarbonate drip to be run at 50 mL an hour. Start oral sodium bicarbonate once able to tolerate oral medications. Maintain TPN. Antibiotics per infectious disease recommendations. Avoid nephrotoxic agents and hypotensive episodes. Wean vasopressors as blood pressure tolerates. Monitor vancomycin levels. Thank you for the consultation. I will continue to follow the patient with you during his hospital stay.
--- NOTE | 2017-03-20 16:03 | P.PN ---
Subjective A 66-year-old male patient who came into the intensive care unit after undergoing expiratory laparotomy and repair of a perforated peptic ulcer with a modified Don patch and open cholecystectomy. Surgery was done last night and the patient was brought into the intensive care unit intubated on a mechanical ventilator. According to the reported history the patient was having 3-4 days history of a vague abdominal pain. This being gradually got worse. The patient was also having constipation. He had some nausea without vomiting. Appetite was diminished. No bright red blood per rectum. The pain was mainly over the central abdomen. No history of any peptic ulcer disease or diverticular disease. The x-ray of the abdomen in the emergency department showed pneumoperitoneum and the CAT scan confirmed the presence of a large volume of free air. The gallbladder was also thickened. The majority of the air was in the upper abdomen. Intraoperatively, the patient was found to have a perforated peptic ulcer and a gangrenous gallbladder. The patient is currently in the intensive care unit. The patient has received a total of 7 L of IV fluids. He has chronic renal failure and had developed acute kidney injury on top of chronic renal insufficiency and currently is oliguric producing only 5-10 mL an hour of urine output. The patient is intubated on a mechanical ventilator. The patient on assist control mode at the rate of 10, tidal volume 450, FiO2 of 40% and a PEEP of 5. His blood. From this morning showed a pH of 7.31 with a pCO2 of 27 and pO2 of 198 and based on that the FiO2 was weaned down. Chest x-ray shows no pneumothorax or pneumoperitoneum. ET tube is in a good location. Hemodynamically, the patient was doing poorly. He was in septic shock. He was tachycardic with a heart rate in the 1:30 range. This improved with fluid resuscitation his current heart rate is sinus at 110. He also was on higher doses of pressors and norepinephrine infusion was running at 25 mics and currently is down to 50 mics. He is covered with a combination of IV Zosyn, IV Diflucan and IV Flagyl. He is afebrile for now. Is sedated with Diprivan. He has a below-knee amputation on the right lower extremity and the feet on the left lower extremity shows marked diminished pulses at is obtainable by Doppler. Lactic acid level was 5.4 at time of admission is currently down to 2.7. He has a right IJ triple-lumen catheter. He has a right upper extremity radial art line. He also has a LOUISA drain in his right lower quadrant area. On 03/18/2017 I'm seeing this patient in the follow-up. The patient remains intubated on a mechanical ventilator. He remains an assist-control mode of ventilation at a tidal volume 450, rate of 24, FiO2 of 40% and a PEEP of 5. His blood gases from this morning showed a pH of 7.26 with a pCO2 of 30 and pO2 of 155. Chest x-ray from this morning shows small bilateral pleural effusions, ET tube is in a good location, NG tube is in a good location and there is no acute pulmonary infiltrates or consolidations. Hemodynamically, the patient is still pressor dependent at 15 mics. Overnight he had to be as high as 20 mics and then he got weaned again down to 15 g of norepinephrine infusion. Urine output is gradually improving. Over the past 12 hours he produced approximately 50 mL of urine output. The patient is still having intermittent renal function and the creatinine still elevated at 4.8 which is comparable to yesterday. Rest of the electrodes are within normal. The patient is still acidotic with a bicarb level of 13. He received a total of 3 L of normal saline and 2 A of 12.5 g of albumin. He is still on a combination of Zosyn, Flagyl and Diflucan. All of the cultures of been negative. He remains nothing by mouth. Surgical wound site is clean and intact. LOUISA drain is draining approximately 50 mL of serosanguineous material. On 03/19/2017 the patient remains intubated on a mechanical ventilator. He is still respiratory failure. He is still in shock. He remains assist-control mode of ventilation with essentially the same vent settings. He is still requiring pressors and levo fed is running somewhere between 8-10 mics. He is afebrile. Echocardiogram was done at the bedside and showed a preserved LV function without any signs of heart failure. Remains sedated on Diprivan. A sedation holiday will be given to him today and try to lower down agree off sedation if possible. Remains on broad-spectrum antibiotics. Surgical wound site is dry clean and intact. Continues to be an acute kidney injury on top of chronic renal failure. No major improvement in the renal function although the patient has become nonoliguric at this point. He is producing adequate amount of urine output. His been aggressively resuscitated IV fluids and colloids and he is in a positive fluid balance and he has demonstrated some edema both in the upper and lower extremities. He remains acidotic. A follow-up lactic acid level will be obtained. Remains nothing by mouth. No clearance from surgery for enteral feeding. No TPN initiated yet. The patient is seen again today 03/20/2017 in follow-up in the intensive care unit. He remains intubated on the mechanical ventilator and assist control mode with a rate of 24, tidal volume 450, FiO2 40% and a PEEP of 5. Morning blood gases reveal a P O2 170, pCO2 of 26 and a pH of 7.20. This was done on 40 % FiO2. He is currently off sedation. He is fluttering his eyelids open but not following any commands at this point. He remains on norepinephrine currently at 3 mcg/m. He is also on a 0.9 normal saline at 40 miles per hour. His chest x-ray does show overall stable findings, there is low lung volumes with small bilateral pleural effusions and basilar atelectasis. His sputum culture reveals methicillin-resistant Staphylococcus aureus. Blood culture reveals no growth to date. He remains on vancomycin and metronidazole. He did have 150 MLS returned from the gastric tube which remains to suction. He does remain acidotic with a bicarb of 9. Chloride is 123. Current BUN 83, creatinine 4.41. Objective - Vital Signs Vital signs: Vital Signs Temp 98.8 F 03/20/17 12:00 Pulse 95 03/20/17 15:00 Resp 24 03/20/17 15:00 BP 100/56 03/19/17 21:00 Pulse Ox 99 03/20/17 15:00 Intake & Output 03/19/17 03/20/17 03/20/17 18:59 06:59 18:59 Intake Total 4338.647 9410.085 1508.11 Output Total 420 788 625 Balance 6453.357 9111.085 883.11 Weight 96.5 kg 96.5 kg Intake: IV 675.0 1775.0 980.0 Piperacillin-Tazobactam 3 50.0 50.0 50.0 .375 gm In Dextrose/Water 1 50ml.bag @ 12.5 mls/hr IVPB Q12HR [facility] Rx#: [id number] Sodium Chloride 0.9% 1, 625 1625 830 000 ml @ 40 mls/hr IV . Q24H [facility] Rx#:[id number] metroNIDAZOLE-NS PMX 500 100 100 mg In Saline 1 100ml.bag @ 100 mls/hr IVPB Q8HR [facility] Rx#:[id number] Intake, IV Titration 1185.250 145.085 528.11 Amount Fluconazole in NaCl,Iso- 50 50 Osm 100 mg In Saline 1 50ml.bag @ 50 mls/hr IVPB DAILY [facility] Rx#:[id number] Norepinephrin 16 mg-0.9% 60.250 72.562 16.5 Ns Pmx 16 mg In 250 ml @ Titrate IV .Q0M [facility] Rx#: [id number] Propofol 1,000 mg In 100 100.000 72.523 27.61 ml @ Titrate IV .Q0M [facility] Rx#:[id number] Sodium Chloride 0.9% 1, 875 000 ml @ 40 mls/hr IV . Q24H [facility] Rx#:[id number] Vancomycin 2,000 mg In 334 Sodium Chloride 0.9% 500 ml @ 167 mls/hr IVPB ONCE ONE Rx#:[id number] metroNIDAZOLE-NS PMX 500 100 100 mg In Saline 1 100ml.bag @ 100 mls/hr IVPB Q8HR [facility] Rx#:[id number] Output: Gastric Drainage 200 Drainage 5 105 25 Right Upper Abdomen 5 105 25 Urine 415 483 500 Stool 0 0 Emesis 100 Other: Voiding Method Indwelling Catheter Indwelling Catheter Indwelling Catheter ABP, PAP, CO, CI - Last Documented Arterial Blood Pressure 122/44 - Exam Patient is sedated, comfortable and tolerating the mechanical ventilator.Head exam was generally normal. There was no scleral icterus or corneal arcus. Mucous membranes were moist. Neck is supple and the patient has a right IJ triple-lumen catheter. The patient also has an orogastric and NG tube in place.Lungs were clear to auscultation and percussion, and with normal diaphragmatic excursion. No wheezes or rales were noted. Cardiac exam revealed the PMI to be normally situated and sized. The rhythm was regular and no extrasystoles were noted during several minutes of auscultation. The first and second heart sounds were normal and physiologic splitting of the second heart sound was noted. There were no murmurs, rubs, clicks, or gallops. Abdomen is soft. Bowel sounds are absent. There is a midabdominal large skin wound which is dry clean and intact and the patient has a right lower quadrant LOUISA drain in place. No ascites. Extremities show below-knee amputation on the right, 4 of the toes are missing in the left foot with diminished pulses at the obtained by Doppler signal. Neurologically the patient is sedated. He can withdraw to deep painful stimuli. - Labs CBC & Chem 7: 03/20/17 04:45 03/20/17 11:36 Labs: Abnormal Lab Results - Last 24 Hours (Table) 03/19/17 03/19/17 03/19/17 Range/Units 19:15 20:13 23:45 WBC (3.8-10.6) k/uL RBC (4.30-5.90) m/uL Hgb (13.0-17.5) gm/dL Hct (39.0-53.0) % Plt Count (150-450) k/uL Neutrophils # (1.3-7.7) k/uL ABG pH (7.35-7.45) ABG pCO2 (35-45) mmHg ABG pO2 (83-108) mmHg ABG HCO3 (21-25) mmol/L ABG Total CO2 (19-24) mmol/L ABG O2 Saturation (94-97) % Chloride (98-107) mmol/L Carbon Dioxide (22-30) mmol/L BUN (9-20) mg/dL Creatinine (0.66-1.25) mg/dL Glucose (74-99) mg/dL POC Glucose (mg/dL) 134 H 127 H 123 H (75-99) mg/dL Calcium (8.4-10.2) mg/dL Phosphorus (2.5-4.5) mg/dL Total Bilirubin (0.2-1.3) mg/dL Total Protein (6.3-8.2) g/dL Albumin (3.5-5.0) g/dL Triglycerides (<150) mg/dL 03/20/17 03/20/17 03/20/17 Range/Units 03:53 04:22 04:45 WBC 20.4 H (3.8-10.6) k/uL RBC 2.92 L (4.30-5.90) m/uL Hgb 8.5 L (13.0-17.5) gm/dL Hct 26.8 L (39.0-53.0) % Plt Count 113 L (150-450) k/uL Neutrophils # 18.6 H (1.3-7.7) k/uL ABG pH 7.20 L* (7.35-7.45) ABG pCO2 26 L (35-45) mmHg ABG pO2 170 H (83-108) mmHg ABG HCO3 10 L* (21-25) mmol/L ABG Total CO2 11 L (19-24) mmol/L ABG O2 Saturation 99.0 H (94-97) % Chloride (98-107) mmol/L Carbon Dioxide (22-30) mmol/L BUN (9-20) mg/dL Creatinine (0.66-1.25) mg/dL Glucose (74-99) mg/dL POC Glucose (mg/dL) 127 H (75-99) mg/dL Calcium (8.4-10.2) mg/dL Phosphorus (2.5-4.5) mg/dL Total Bilirubin (0.2-1.3) mg/dL Total Protein (6.3-8.2) g/dL Albumin (3.5-5.0) g/dL Triglycerides (<150) mg/dL 03/20/17 03/20/17 03/20/17 Range/Units 04:45 08:39 11:29 WBC (3.8-10.6) k/uL RBC (4.30-5.90) m/uL Hgb (13.0-17.5) gm/dL Hct (39.0-53.0) % Plt Count (150-450) k/uL Neutrophils # (1.3-7.7) k/uL ABG pH 7.23 L (7.35-7.45) ABG pCO2 25 L (35-45) mmHg ABG pO2 164 H (83-108) mmHg ABG HCO3 10 L* (21-25) mmol/L ABG Total CO2 11 L (19-24) mmol/L ABG O2 Saturation 99.2 H (94-97) % Chloride 123 H* (98-107) mmol/L Carbon Dioxide 9 L* (22-30) mmol/L BUN 84 H* (9-20) mg/dL Creatinine 4.52 H (0.66-1.25) mg/dL Glucose 125 H (74-99) mg/dL POC Glucose (mg/dL) 137 H (75-99) mg/dL Calcium 7.3 L (8.4-10.2) mg/dL Phosphorus 4.9 H (2.5-4.5) mg/dL Total Bilirubin (0.2-1.3) mg/dL Total Protein (6.3-8.2) g/dL Albumin (3.5-5.0) g/dL Triglycerides (<150) mg/dL 03/20/17 03/20/17 Range/Units 11:36 12:10 WBC (3.8-10.6) k/uL RBC (4.30-5.90) m/uL Hgb (13.0-17.5) gm/dL Hct (39.0-53.0) % Plt Count (150-450) k/uL Neutrophils # (1.3-7.7) k/uL ABG pH (7.35-7.45) ABG pCO2 (35-45) mmHg ABG pO2 (83-108) mmHg ABG HCO3 (21-25) mmol/L ABG Total CO2 (19-24) mmol/L ABG O2 Saturation (94-97) % Chloride 124 H* (98-107) mmol/L Carbon Dioxide 10 L* (22-30) mmol/L BUN 83 H* (9-20) mg/dL Creatinine 4.41 H (0.66-1.25) mg/dL Glucose 115 H (74-99) mg/dL POC Glucose (mg/dL) 102 H (75-99) mg/dL Calcium 7.4 L (8.4-10.2) mg/dL Phosphorus (2.5-4.5) mg/dL Total Bilirubin 1.5 H (0.2-1.3) mg/dL Total Protein 3.4 L (6.3-8.2) g/dL Albumin 1.7 L (3.5-5.0) g/dL Triglycerides 171 H (<150) mg/dL Microbiology - Last 24 Hours (Table) 08/08/17 02:25 Gram Stain - Final Sputum Sputum Culture - Final Methicillin resist S. aureus 03/16/17 16:30 Blood Culture - Preliminary Blood No Growth after 72 hours Assessment and Plan Plan: Assessment 1 acute abdomen status post extra laparotomy and repair of a perforated peptic ulcer a modified Don patch and open cholecystectomy. Patient is postop day # 4. 2 shock likely septic in nature secondary to intra-abdominal sepsis complicated by perforated peptic ulcer and cholecystitis. Patient remains pressor dependent. 3 hypotension secondary to above still , on pressors 4 acute respiratory failure, a complication of septic shock.. Remains intubated on a mechanical ventilator. Oxygen awaiting and ventilating well. 5 acute kidney injury on top of chronic renal failure. The patient has stage II kidney disease at baseline due to diabetic nephropathy. Acute kidney injury related to hypotension/sepsis due to ATN. The patient remains in acute kidney injury. The patient is nonoliguric. Creatinine is elevated at 4.4. He remains to be acidotic with a bicarb of 9. 6 acute lactic acidosis, improving, and still he has a component of metabolic acidosis on today's blood work. 7 diabetes mellitus with poorly controlled blood sugar secondary to sepsis currently on insulin drip for blood sugar control. 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 Plan: The patient was seen and evaluated by Dr. Lopze. His chest x-ray ABGs and labs were reviewed. The patient was given a sedation holiday and placed on CPAP. Follow-up arterial blood gases revealed pO2 of 164, pCO2 25 and a pH of 7.23. Bicarb 10. Based on this the patient was placed back on his original vent settings. Sedation remains off currently. Nephrology was consulted and it started isotonic sodium bicarb drip at 50 MLS per hour. He also initiated oral sodium bicarbonate to be initiated once the patient can tolerate oral medications. In the interim we'll continue with his current antibiotics. We' ll continue with bronchodilators every 4 hours. He remains on heparin subcutaneous for DVT prophylaxis. Protonix for GI prophylaxis. TPN has been initiated for nutritional support. We'll repeat his chest x-ray, ABGs and labs in the a.m. We will continue to follow. Critical care time 36 minutes.
[2017-03-20 17:01] LABS: Glucose,Whole Blood 152 mg/dL (75-99)
--- NOTE | 2017-03-20 17:15 | P.PN ---
Subjective Principal diagnosis: Perforated peptic ulcer Patient was started on weaning trials today. He did tolerate CPAP for a while. He remains acidotic however. Pressor requirements have been decreased. Improving diuresis. He is somewhat alert on the ventilator now. LOUISA drain remains serous while the nasogastric tube remains bilious. White blood cell count has increased further. Objective - Vital Signs Vital signs: Vital Signs Temp 98.8 F 03/20/17 16:00 Pulse 100 03/20/17 17:00 Resp 24 03/20/17 17:00 BP 100/56 03/19/17 21:00 Pulse Ox 100 03/20/17 17:00 Intake & Output 03/19/17 03/20/17 03/20/17 18:59 06:59 18:59 Intake Total 4603.541 0952.085 1808.11 Output Total 420 788 715 Balance 7400.792 7939.085 1093.11 Weight 96.5 kg 96.5 kg Intake: IV 675.0 1775.0 1120.0 Piperacillin-Tazobactam 3 50.0 50.0 50.0 .375 gm In Dextrose/Water 1 50ml.bag @ 12.5 mls/hr IVPB Q12HR [facility] Rx#: [id number] Sodium Chloride 0.9% 1, 625 1625 870 000 ml @ 40 mls/hr IV . Q24H [facility] Rx#:[id number] metroNIDAZOLE-NS PMX 500 100 200 mg In Saline 1 100ml.bag @ 100 mls/hr IVPB Q8HR [facility] Rx#:[id number] Intake, IV Titration 1185.250 145.085 688.11 Amount Dextrose 5% in Water 1, 100 000 ml @ 50 mls/hr IV . Q23H [facility] with Sod Bicarb Syr 8.4% (1 Meq/ml) 150 ml Rx#:[id number] Fluconazole in NaCl,Iso- 50 50 Osm 100 mg In Saline 1 50ml.bag @ 50 mls/hr IVPB DAILY [facility] Rx#:[id number] Norepinephrin 16 mg-0.9% 60.250 72.562 16.5 Ns Pmx 16 mg In 250 ml @ Titrate IV .Q0M [facility] Rx#: [id number] Parenteral Electrolytes 60 20 ml In Amino Acid 5%- D15w 1,000 ml @ 90 mls/hr IV .BY DURATION [facility] Rx#: [id number] Propofol 1,000 mg In 100 100.000 72.523 27.61 ml @ Titrate IV .Q0M [facility] Rx#:[id number] Sodium Chloride 0.9% 1, 875 000 ml @ 40 mls/hr IV . Q24H [facility] Rx#:[id number] Vancomycin 2,000 mg In 334 Sodium Chloride 0.9% 500 ml @ 167 mls/hr IVPB ONCE ONE Rx#:[id number] metroNIDAZOLE-NS PMX 500 100 100 mg In Saline 1 100ml.bag @ 100 mls/hr IVPB Q8HR [facility] Rx#:[id number] Output: Gastric Drainage 200 Drainage 5 105 25 Right Upper Abdomen 5 105 25 Urine 415 483 590 Stool 0 0 Emesis 100 Other: Voiding Method Indwelling Catheter Indwelling Catheter Indwelling Catheter ABP, PAP, CO, CI - Last Documented Arterial Blood Pressure 140/49 - Exam Abdomen: Soft, distended, edematous abdominal wall, no erythema, mild diffuse tenderness appreciated now the patient is more awake - Labs CBC & Chem 7: 03/20/17 04:45 03/20/17 11:36 Labs: Abnormal Lab Results - Last 24 Hours (Table) 03/19/17 03/19/17 03/19/17 Range/Units 19:15 20:13 23:45 WBC (3.8-10.6) k/uL RBC (4.30-5.90) m/uL Hgb (13.0-17.5) gm/dL Hct (39.0-53.0) % Plt Count (150-450) k/uL Neutrophils # (1.3-7.7) k/uL ABG pH (7.35-7.45) ABG pCO2 (35-45) mmHg ABG pO2 (83-108) mmHg ABG HCO3 (21-25) mmol/L ABG Total CO2 (19-24) mmol/L ABG O2 Saturation (94-97) % Chloride (98-107) mmol/L Carbon Dioxide (22-30) mmol/L BUN (9-20) mg/dL Creatinine (0.66-1.25) mg/dL Glucose (74-99) mg/dL POC Glucose (mg/dL) 134 H 127 H 123 H (75-99) mg/dL Calcium (8.4-10.2) mg/dL Phosphorus (2.5-4.5) mg/dL Total Bilirubin (0.2-1.3) mg/dL Total Protein (6.3-8.2) g/dL Albumin (3.5-5.0) g/dL Triglycerides (<150) mg/dL 03/20/17 03/20/17 03/20/17 Range/Units 03:53 04:22 04:45 WBC 20.4 H (3.8-10.6) k/uL RBC 2.92 L (4.30-5.90) m/uL Hgb 8.5 L (13.0-17.5) gm/dL Hct 26.8 L (39.0-53.0) % Plt Count 113 L (150-450) k/uL Neutrophils # 18.6 H (1.3-7.7) k/uL ABG pH 7.20 L* (7.35-7.45) ABG pCO2 26 L (35-45) mmHg ABG pO2 170 H (83-108) mmHg ABG HCO3 10 L* (21-25) mmol/L ABG Total CO2 11 L (19-24) mmol/L ABG O2 Saturation 99.0 H (94-97) % Chloride (98-107) mmol/L Carbon Dioxide (22-30) mmol/L BUN (9-20) mg/dL Creatinine (0.66-1.25) mg/dL Glucose (74-99) mg/dL POC Glucose (mg/dL) 127 H (75-99) mg/dL Calcium (8.4-10.2) mg/dL Phosphorus (2.5-4.5) mg/dL Total Bilirubin (0.2-1.3) mg/dL Total Protein (6.3-8.2) g/dL Albumin (3.5-5.0) g/dL Triglycerides (<150) mg/dL 03/20/17 03/20/17 03/20/17 Range/Units 04:45 08:39 11:29 WBC (3.8-10.6) k/uL RBC (4.30-5.90) m/uL Hgb (13.0-17.5) gm/dL Hct (39.0-53.0) % Plt Count (150-450) k/uL Neutrophils # (1.3-7.7) k/uL ABG pH 7.23 L (7.35-7.45) ABG pCO2 25 L (35-45) mmHg ABG pO2 164 H (83-108) mmHg ABG HCO3 10 L* (21-25) mmol/L ABG Total CO2 11 L (19-24) mmol/L ABG O2 Saturation 99.2 H (94-97) % Chloride 123 H* (98-107) mmol/L Carbon Dioxide 9 L* (22-30) mmol/L BUN 84 H* (9-20) mg/dL Creatinine 4.52 H (0.66-1.25) mg/dL Glucose 125 H (74-99) mg/dL POC Glucose (mg/dL) 137 H (75-99) mg/dL Calcium 7.3 L (8.4-10.2) mg/dL Phosphorus 4.9 H (2.5-4.5) mg/dL Total Bilirubin (0.2-1.3) mg/dL Total Protein (6.3-8.2) g/dL Albumin (3.5-5.0) g/dL Triglycerides (<150) mg/dL 03/20/17 03/20/17 03/20/17 Range/Units 11:36 12:10 16:49 WBC (3.8-10.6) k/uL RBC (4.30-5.90) m/uL Hgb (13.0-17.5) gm/dL Hct (39.0-53.0) % Plt Count (150-450) k/uL Neutrophils # (1.3-7.7) k/uL ABG pH (7.35-7.45) ABG pCO2 (35-45) mmHg ABG pO2 (83-108) mmHg ABG HCO3 (21-25) mmol/L ABG Total CO2 (19-24) mmol/L ABG O2 Saturation (94-97) % Chloride 124 H* (98-107) mmol/L Carbon Dioxide 10 L* (22-30) mmol/L BUN 83 H* (9-20) mg/dL Creatinine 4.41 H (0.66-1.25) mg/dL Glucose 115 H (74-99) mg/dL POC Glucose (mg/dL) 102 H 152 H (75-99) mg/dL Calcium 7.4 L (8.4-10.2) mg/dL Phosphorus (2.5-4.5) mg/dL Total Bilirubin 1.5 H (0.2-1.3) mg/dL Total Protein 3.4 L (6.3-8.2) g/dL Albumin 1.7 L (3.5-5.0) g/dL Triglycerides 171 H (<150) mg/dL Microbiology - Last 24 Hours (Table) 03/18/17 02:25 Gram Stain - Final Sputum Sputum Culture - Final Methicillin resist S. aureus 03/16/17 16:30 Blood Culture - Preliminary Blood No Growth after 72 hours Assessment and Plan (1) Free intraperitoneal air Narrative/Plan: Continue IV antibiotics. Continue bowel rest. Continue TPN. Monitor acidosis. Status: Acute
[2017-03-20 20:08] LABS: Glucose,Whole Blood 197 mg/dL (75-99)
--- NOTE | 2017-03-20 20:33 | P.PN ---
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 [facility] most recently under the care of Dr. Gordon and discharged in August 2016 after a dehiscence of the right below the knee wound healed. Patient presented to [facility] emergency center on March 16 with generalized weakness and abdominal pain for at least couple days up to 1 week with concerns for constipation and was taking laxatives with no improvement. Patient also had decreased appetite and pain was gradually worsening. There was nausea without vomiting. Chest x-ray showed pneumoperitoneum and left basilar atelectasis with no heart failure. Abdominal films also showed pneumoperitoneum. CAT scan of the abdomen and pelvis without contrast and was found have a large pneumoperitoneum, large ascites, large nonobstructive right renal calculi and possible gallbladder thickening with concern for gangrenous gallbladder. Patient was taken to the OR by Dr. Wiley for exploratory laparotomy with repair of perforated peptic ulcer and open cholecystectomy. Patient was then transferred to the intensive care unit where he remains intubated and on mechanical ventilation. Patient presented with severe sepsis and septic shock status post 7 1/2 liters of fluid currently on levo at 20 mics. He did not have a urine output for the day shift thus far. O2 needs have decreased however. He is currently on IV antimicrobials in the form of fluconazole, Flagyl and Zosyn. Blood cultures status received and urine culture status received. C. difficile toxin was negative. Patient is noted to have a stage II decubitus ulcer on his buttocks that was present on admission. There has been little improvement the day today. He is on less vasopressor therapy however. Responded to fluids. Urine output is started to improve. Still has acute renal failure. Critical care has no plans on weaning further today. Objective - Vital Signs Vital signs: Vital Signs Temp 98.8 F 03/20/17 16:00 Pulse 104 H 03/20/17 19:00 Resp 24 03/20/17 19:00 BP 100/56 03/19/17 21:00 Pulse Ox 99 03/20/17 19:00 Intake & Output 03/20/17 03/20/17 03/21/17 06:59 18:59 06:59 Intake Total 2141.216 8749.818 170 Output Total 788 765 75 Balance 0473.709 3738.818 95 Weight 96.5 kg 96.5 kg Intake: IV 1775.0 1120.0 90 Dextrose 5% in Water 1, 50 000 ml @ 50 mls/hr IV . Q23H [facility] with Sod Bicarb Syr 8.4% (1 Meq/ml) 150 ml Rx#:[id number] Mvi, Adult No.4 with Vit 30 K 10 ml Trace (Conc-1Ml/ Dose) 1 ml Parenteral Electrolytes 20 ml In Amino Acid 5%-D15w 1,000 ml @ 30 mls/hr IV .Q24H ONE Rx#:[id number] Piperacillin-Tazobactam 3 50.0 50.0 .375 gm In Dextrose/Water 1 50ml.bag @ 12.5 mls/hr IVPB Q12HR [facility] Rx#: [id number] Sodium Chloride 0.9% 1, 1625 870 10 000 ml @ 40 mls/hr IV . Q24H [facility] Rx#:[id number] metroNIDAZOLE-NS PMX 500 100 200 mg In Saline 1 100ml.bag @ 100 mls/hr IVPB Q8HR [facility] Rx#:[id number] Intake, IV Titration 145.085 795.818 80 Amount Dextrose 5% in Water 1, 150 50 000 ml @ 50 mls/hr IV . Q23H X[facility] with Sod Bicarb Syr 8.4% (1 Meq/ml) 150 ml Rx#:[id number] Fluconazole in NaCl,Iso- 50 Osm 100 mg In Saline 1 50ml.bag @ 50 mls/hr IVPB DAILY [facility] Rx#:[id number] Norepinephrin 16 mg-0.9% 72.562 44.208 Ns Pmx 16 mg In 250 ml @ Titrate IV .Q0M [facility] Rx#: [id number] Parenteral Electrolytes 90 30 20 ml In Amino Acid 5%- D15w 1,000 ml @ 90 mls/hr IV .BY DURATION [facility] Rx#: [id number] Propofol 1,000 mg In 100 72.523 27.61 ml @ Titrate IV .Q0M [facility] Rx#:[id number] Vancomycin 2,000 mg In 334 Sodium Chloride 0.9% 500 ml @ 167 mls/hr IVPB ONCE ONE Rx#:[id number] metroNIDAZOLE-NS PMX 500 100 mg In Saline 1 100ml.bag @ 100 mls/hr IVPB Q8HR [facility] Rx#:[id number] Output: Gastric Drainage 200 Drainage 105 25 Right Upper Abdomen 105 25 Urine 483 640 75 Stool 0 Emesis 100 Other: Voiding Method Indwelling Catheter Indwelling Catheter ABP, PAP, CO, CI - Last Documented Arterial Blood Pressure 102/44 - Exam Gen: This is an obese 66-year-old male. He is seen in the ICU, intubated and on mechanical ventilation. Patient appears comfortable and in no acute distress. HEENT: Head is atraumatic, normocephalic. Oral ET and gastric tube in place. White coating noted on the tongue. Mucous membranes are slightly dry.. NECK: Supple. No JVD. No lymphadenopathy. Trachea midline. LUNGS: Clear to auscultation. No wheezes or rhonchi. No intercostal retractions. HEART: Regular rate and rhythm. No murmur. Patient is tachycardic. ABDOMEN: Soft. Bowel sounds are not present. No masses. No tenderness. LOUISA drain to the right upper abdomen is draining serosanguineous fluid. Dressing to the right upper quadrant and midline are in place with no breakthrough drainage or bleeding. Castellanos catheter in place draining clear pinky urine. EXTREMITIES: No pedal edema to the left lower extremity. Patient has amputations of toes 2 through 5 on the left and a right below the knee amputation. All extremities are cool to the touch. No mottling noted. NEUROLOGICAL: Patient is on a sedation holiday. Eyes are open. Seems very comfortable. Denied pain. - Labs CBC & Chem 7: 03/20/17 04:45 03/20/17 11:36 Labs: Abnormal Lab Results - Last 24 Hours (Table) 03/19/17 03/20/17 03/20/17 Range/Units 23:45 03:53 04:22 WBC (3.8-10.6) k/uL RBC (4.30-5.90) m/uL Hgb (13.0-17.5) gm/dL Hct (39.0-53.0) % Plt Count (150-450) k/uL Neutrophils # (1.3-7.7) k/uL ABG pH 7.20 L* (7.35-7.45) ABG pCO2 26 L (35-45) mmHg ABG pO2 170 H (83-108) mmHg ABG HCO3 10 L* (21-25) mmol/L ABG Total CO2 11 L (19-24) mmol/L ABG O2 Saturation 99.0 H (94-97) % Chloride (98-107) mmol/L Carbon Dioxide (22-30) mmol/L BUN (9-20) mg/dL Creatinine (0.66-1.25) mg/dL Glucose (74-99) mg/dL POC Glucose (mg/dL) 123 H 127 H (75-99) mg/dL Calcium (8.4-10.2) mg/dL Phosphorus (2.5-4.5) mg/dL Total Bilirubin (0.2-1.3) mg/dL Total Protein (6.3-8.2) g/dL Albumin (3.5-5.0) g/dL Triglycerides (<150) mg/dL 03/20/17 03/20/17 03/20/17 Range/Units 04:45 04:45 08:39 WBC 20.4 H (3.8-10.6) k/uL RBC 2.92 L (4.30-5.90) m/uL Hgb 8.5 L (13.0-17.5) gm/dL Hct 26.8 L (39.0-53.0) % Plt Count 113 L (150-450) k/uL Neutrophils # 18.6 H (1.3-7.7) k/uL ABG pH (7.35-7.45) ABG pCO2 (35-45) mmHg ABG pO2 (83-108) mmHg ABG HCO3 (21-25) mmol/L ABG Total CO2 (19-24) mmol/L ABG O2 Saturation (94-97) % Chloride 123 H* (98-107) mmol/L Carbon Dioxide 9 L* (22-30) mmol/L BUN 84 H* (9-20) mg/dL Creatinine 4.52 H (0.66-1.25) mg/dL Glucose 125 H (74-99) mg/dL POC Glucose (mg/dL) 137 H (75-99) mg/dL Calcium 7.3 L (8.4-10.2) mg/dL Phosphorus 4.9 H (2.5-4.5) mg/dL Total Bilirubin (0.2-1.3) mg/dL Total Protein (6.3-8.2) g/dL Albumin (3.5-5.0) g/dL Triglycerides (<150) mg/dL 03/20/17 03/20/17 03/20/17 Range/Units 11:29 11:36 12:10 WBC (3.8-10.6) k/uL RBC (4.30-5.90) m/uL Hgb (13.0-17.5) gm/dL Hct (39.0-53.0) % Plt Count (150-450) k/uL Neutrophils # (1.3-7.7) k/uL ABG pH 7.23 L (7.35-7.45) ABG pCO2 25 L (35-45) mmHg ABG pO2 164 H (83-108) mmHg ABG HCO3 10 L* (21-25) mmol/L ABG Total CO2 11 L (19-24) mmol/L ABG O2 Saturation 99.2 H (94-97) % Chloride 124 H* (98-107) mmol/L Carbon Dioxide 10 L* (22-30) mmol/L BUN 83 H* (9-20) mg/dL Creatinine 4.41 H (0.66-1.25) mg/dL Glucose 115 H (74-99) mg/dL POC Glucose (mg/dL) 102 H (75-99) mg/dL Calcium 7.4 L (8.4-10.2) mg/dL Phosphorus (2.5-4.5) mg/dL Total Bilirubin 1.5 H (0.2-1.3) mg/dL Total Protein 3.4 L (6.3-8.2) g/dL Albumin 1.7 L (3.5-5.0) g/dL Triglycerides 171 H (<150) mg/dL 03/20/17 03/20/17 Range/Units 16:49 20:07 WBC (3.8-10.6) k/uL RBC (4.30-5.90) m/uL Hgb (13.0-17.5) gm/dL Hct (39.0-53.0) % Plt Count (150-450) k/uL Neutrophils # (1.3-7.7) k/uL ABG pH (7.35-7.45) ABG pCO2 (35-45) mmHg ABG pO2 (83-108) mmHg ABG HCO3 (21-25) mmol/L ABG Total CO2 (19-24) mmol/L ABG O2 Saturation (94-97) % Chloride (98-107) mmol/L Carbon Dioxide (22-30) mmol/L BUN (9-20) mg/dL Creatinine (0.66-1.25) mg/dL Glucose (74-99) mg/dL POC Glucose (mg/dL) 152 H 197 H (75-99) mg/dL Calcium (8.4-10.2) mg/dL Phosphorus (2.5-4.5) mg/dL Total Bilirubin (0.2-1.3) mg/dL Total Protein (6.3-8.2) g/dL Albumin (3.5-5.0) g/dL Triglycerides (<150) mg/dL Microbiology - Last 24 Hours (Table) 03/16/17 16:30 Blood Culture - Preliminary Blood No Growth after 96 hours 03/18/17 02:25 Gram Stain - Final Sputum Sputum Culture - Final Methicillin resist S. aureus Laboratory Results WBC 20.4 k/uL (3.8-10.6) H 03/20/17 04:45 RBC 2.92 m/uL (4.30-5.90) L 03/20/17 04:45 Hgb 8.5 gm/dL (13.0-17.5) L 03/20/17 04:45 Hct 26.8 % (39.0-53.0) L 03/20/17 04:45 MCV 91.8 fL (80.0-100.0) 03/20/17 04:45 MCH 29.2 pg (25.0-35.0) 03/20/17 04:45 MCHC 31.8 g/dL (31.0-37.0) 03/20/17 04:45 RDW 15.5 % (11.5-15.5) 03/20/17 04:45 Plt Count 113 k/uL (150-450) L 03/20/17 04:45 Neutrophils % 91 % 03/20/17 04:45 Neutrophils % (Manual) 61.6 % 03/17/17 04:20 Band Neutrophils % 15.2 % 03/17/17 04:20 Lymphocytes % 5 % 03/20/17 04:45 Lymphocytes % (Manual) 18.2 % 03/17/17 04:20 Monocytes % 2 % 03/20/17 04:45 Monocytes % (Manual) 5.1 % 03/17/17 04:20 Eosinophils % 1 % 03/20/17 04:45 Basophils % 0 % 03/20/17 04:45 Metamyelocytes % 4.0 % 03/16/17 22:50 Neutrophils # 18.6 k/uL (1.3-7.7) H 03/20/17 04:45 Neutrophils # (Manual) 7.1 k/uL (1.3-7.7) 03/17/17 04:20 Lymphocytes # 1.0 k/uL (1.0-4.8) 03/20/17 04:45 Lymphocytes # (Manual) 1.7 k/uL (1.0-4.8) 03/17/17 04:20 Monocytes # 0.5 k/uL (0-1.0) 03/20/17 04:45 Monocytes # (Manual) 0.5 k/uL (0-1.0) 03/17/17 04:20 Eosinophils # 0.2 k/uL (0-0.7) 03/20/17 04:45 Basophils # 0.0 k/uL (0-0.2) 03/20/17 04:45 Nucleated RBCs 0 /100 WBC (0-0) 03/17/17 04:20 Manual Slide Review Performed 03/17/17 04:20 Toxic Granulation Present 03/16/17 16:30 RBC Morphology Normal 03/16/17 16:30 Hypochromasia Slight 03/20/17 04:45 PT 10.4 sec (9.0-12.0) 03/16/17 16:30 INR 1.0 (<1.2) 03/16/17 16:30 APTT 22.1 sec (22.0-30.0) 03/16/17 16:30 Sample Site A-LINE 03/20/17 11:29 ABG pH 7.23 (7.35-7.45) L 03/20/17 11:29 ABG pCO2 25 mmHg (35-45) L 03/20/17 11:29 ABG pO2 164 mmHg (83-108) H 03/20/17 11:29 ABG HCO3 10 mmol/L (21-25) L* 03/20/17 11:29 ABG Total CO2 11 mmol/L (19-24) L 03/20/17 11:29 ABG O2 Saturation 99.2 % (94-97) H 03/20/17 11:29 ABG Base Excess -15.8 mmol/L 03/20/17 11:29 ABG Hematocrit 29 % (34.0-46.0) L 03/16/17 21:12 ABG Lactic Acid 0.7 mmol/L (0.5-1.6) 03/20/17 04:45 VBG pH 7.25 (7.31-7.41) L 03/16/17 16:30 VBG pCO2 29 mmHg (37-51) L 03/16/17 16:30 VBG HCO3 12 mmol/L (24-28) L 03/16/17 16:30 FiO2 40 % 03/20/17 11:29 Sodium 145 mmol/L (137-145) 03/20/17 11:36 Potassium 4.0 mmol/L (3.5-5.1) 03/20/17 11:36 Chloride 124 mmol/L (98-107) H* 03/20/17 11:36 Carbon Dioxide 10 mmol/L (22-30) L* 03/20/17 11:36 Anion Gap 11 mmol/L 03/20/17 11:36 BUN 83 mg/dL (9-20) H* 03/20/17 11:36 Creatinine 4.41 mg/dL (0.66-1.25) H 03/20/17 11:36 Est GFR (MDRD) Af Amer 16 (>60 ml/min/1.73 sqM) 03/20/17 11:36 Est GFR (MDRD) Non-Af 14 (>60 ml/min/1.73 sqM) 03/20/17 11:36 Glucose 115 mg/dL (74-99) H 03/20/17 11:36 POC Glucose (mg/dL) 197 mg/dL (75-99) H 03/20/17 20:07 POC Glu Biology Teacher ID Karen, Crescencio 03/20/17 20:[address] Glu mg/dL 174 mg/dL 03/17/17 04:20 Hemoglobin A1c 7.7 % (4.2-6.1) H 03/17/17 04:20 Lactic Ac Sepsis Rflx Y 03/16/17 16:57 Plasma Lactic Acid Mario 2.8 mmol/L (0.7-2.0) H* 03/16/17 22:42 Calcium 7.4 mg/dL (8.4-10.2) L 03/20/17 11:36 Ionized Calcium Valorie 5.2 mg/dL (4.5-5.3) 03/20/17 11:36 Phosphorus 4.9 mg/dL (2.5-4.5) H 03/20/17 04:45 Magnesium 2.2 mg/dL (1.6-2.3) 03/20/17 04:45 Total Bilirubin 1.5 mg/dL (0.2-1.3) H 03/20/17 11:36 AST 19 U/L (17-59) 03/20/17 11:36 ALT 28 U/L (21-72) 03/20/17 11:36 Alkaline Phosphatase 60 U/L (38-126) 03/20/17 11:36 Total Creatine Kinase 216 U/L (55-170) H 03/16/17 16:30 CK-MB (CK-2) 2.9 ng/mL (0.0-2.4) H* 03/16/17 16:30 CK-MB (CK-2) Rel Index 1.3 03/16/17 16:30 Troponin I 0.590 ng/mL (0.000-0.034) H* 03/16/17 16:30 Total Protein 3.4 g/dL (6.3-8.2) L 03/20/17 11:36 Albumin 1.7 g/dL (3.5-5.0) L 03/20/17 11:36 Triglycerides 171 mg/dL (<150) H 03/20/17 11:36 TSH 0.672 mIU/L (0.465-4.680) 03/16/17 16:30 Urine Color Dark Yellow 03/16/17 19:00 Urine Appearance Cloudy (Clear) 03/16/17 19:00 Urine pH 5.0 (5.0-8.0) 03/16/17 19:00 Ur Specific [place] 1.017 (1.001-1.035) 03/16/17 19:00 Urine Protein 1+ (Negative) H 03/16/17 19:00 Urine Glucose (UA) 1+ (Negative) H 03/16/17 19:00 Urine Ketones Negative (Negative) 03/16/17 19:00 Urine Blood Trace (Negative) H 03/16/17 19:00 Urine Nitrite Negative (Negative) 03/16/17 19:00 Urine Bilirubin Negative (Negative) 03/16/17 19:00 Urine Urobilinogen <2.0 mg/dL (<2.0) 03/16/17 19:00 Ur Leukocyte Esterase Negative (Negative) 03/16/17 19:00 Urine RBC 15 /hpf (0-5) H 03/16/17 19:00 Urine WBC 4 /hpf (0-5) 03/16/17 19:00 Amorphous Sediment Occasional /hpf (None) H 03/16/17 19:00 Hyaline Casts 110 /lpf (0-2) H 03/16/17 19:00 C. difficile (EIA) Intrp Negative (Negative) 03/16/17 23:00 Blood Type A Positive 03/16/17 16:30 Blood Type Recheck No 03/16/17 16:30 Antibody Screen NEGATIVE 03/16/17 16:30 Spec Expiration Date 03/19/2017 - 2330 03/16/17 16:30 Microbiology 03/16/17 16:30 Blood Blood Culture - Preliminary No Growth after 96 hours 03/18/17 02:25 Sputum Gram Stain - Final 03/18/17 02:25 Sputum Sputum Culture - Final Methicillin resist S. aureus 03/16/17 19:00 Urine,Voided Urine Culture - Final Assessment and Plan (1) Septic shock Narrative/Plan: 66-year-old male with multiple medical troubles with left toe amputations and right below-knee amputation due to his severe peripheral vascular disease. Now presents with a significant bout of sepsis from the abdomen. Has evidence of pneumoperitoneum. Perforated gastric ulcer was noted. As well as gangrenous cholecystitis. He's had the surgical incision is noted. Remains profoundly ill with septic shock. For sepsis from the abdominal source in the condition of the perforation and gangrenous cholecystitis continue with antifungal therapy with fluconazole. Piperacillin tazobactam is being dosed per his renal failure. Has a history of MRSA as well as VRE infection. Daptomycin was being utilized. However MRSA is not been found in the pulmonary secretions. This will be changed to vancomycin and that no VRE has now been isolated from his abdominal cultures. Concerns related to his acute renal failure. Will be monitored closely. Cultures are in process. Supportive care continues. Status: Acute (2) Gastric perforation Status: Acute (3) Cholecystitis Status: Acute
[2017-03-20 23:58] LABS: Glucose,Whole Blood 208 mg/dL (75-99)
[2017-03-21] MEDS: HYDROmorphone 1 MG/ML 1 ML SYRINGE IVP PRN ×5 (02:50→20:42)
[2017-03-21] MEDS: IPRATROPIUM-ALBUTEROL 3 ML NEB INHALATION SCH ×6 (03:30→23:47)
[2017-03-21 03:49] LABS: Glucose,Whole Blood 151 mg/dL (75-99)
[2017-03-21] MEDS: INSULIN LISPRO (humaLOG) 300 UNIT/3 ML VIAL SQ SCH ×5 (03:54→21:14)
[2017-03-21 04:25] LABS: Basophils % (A) 0 %; CH 29.5; CHCM 32.2; Eosinophils # (A) 0.2 k/uL (0-0.7); Eosinophils % (A) 1 %; HCT 27.2 % (39.0-53.0); HDW 3.15; HGB 8.5 gm/dL (13.0-17.5); Luc # (Auto) 0.22; Luc % (Auto) 2; Lymphocytes # (A) 0.9 k/uL (1.0-4.8); Lymphocytes % (A) 6 %; MCH 28.9 pg (25.0-35.0); MCHC 31.2 g/dL (31.0-37.0); MCV 92.5 fL (80.0-100.0); Mean Platelet Volume 10.2; Monocytes # (A) 0.4 k/uL (0-1.0); Monocytes % (A) 3 %; Neutrophils # (A) 12.3 k/uL (1.3-7.7); Neutrophils % (A) 88 %; RBC 2.94 m/uL (4.30-5.90); RDW 15.7 % (11.5-15.5); WBC 14.1 k/uL (3.8-10.6); WBC (Perox) 14.87
[2017-03-21 04:30] LABS: ABG Base Excess -13.1 mmol/L; ABG HCO3 12 mmol/L (21-25); ABG PCO2 26 mmHg (35-45); ABG PO2 163 mmHg (83-108); ABG TCO2 13 mmol/L (19-24)
[2017-03-21 04:48] LABS: Ionized Calcium 5.2 mg/dL (4.5-5.3)
[2017-03-21 04:59] LABS: Calcium 7.6 mg/dL (8.4-10.2); Magnesium 2.3 mg/dL (1.6-2.3); Phosphorous 4.7 mg/dL (2.5-4.5); Potassium 3.8 mmol/L (3.5-5.1)
[2017-03-21] MEDS ORDERED: POTASSIUM CHLORIDE 20 MEQ in WATER FOR INJECTION 1 100ML.BAG IVPB STA (08:08)
[2017-03-21 08:15] LABS: Glucose,Whole Blood 154 mg/dL (75-99)
--- NOTE | 2017-03-21 08:24 | XR ---
EXAMINATION TYPE: XR chest 1V DATE OF EXAM: 03/21/2017 COMPARISON: 03/20/2017 HISTORY: 66-year-old male intubated TECHNIQUE: Single frontal view of the chest is obtained. FINDINGS: ET tube is satisfactory. NG tube courses below the diaphragm. Right-sided CVC tip courses into the ri ght atrium. Patient is obliqued on the current exam. Heart is upper limits of normal in size. Small pleural effus ions persist with lower lung and retrocardiac opacities. IMPRESSION: Rotated exam but otherwise relatively unchanged with small bilateral pleural effusions with prominent adjacent atelectasis and/or consolidation.
[2017-03-21] MEDS: CHLORHEXIDINE GLUCONATE 15 ML CUP MUCOUS MEM SCH ×2 (08:37→20:16)
[2017-03-21] MEDS: PANTOPRAZOLE 40 MG/10 ML VIAL IV SCH ×2 (08:37→20:11)
[2017-03-21] MEDS: SODIUM CHLORIDE 0.9% 1,000 ML IV SCH (08:37)
[2017-03-21] MEDS: HEPARIN SODIUM,PORCINE 5,000 UNIT/ML 1 ML VIAL SQ SCH ×2 (08:37→16:08)
[2017-03-21] MEDS: PIPERACILLIN-TAZOBACTAM 3.375 GM in DEXTROSE/WATER 1 50ML.BAG IVPB SCH ×2 (08:39→21:16)
[2017-03-21] MEDS: FLUCONAZOLE IN NACL,ISO-OSM 100 MG in SALINE 1 50ML.BAG IVPB SCH (08:39)
[2017-03-21] MEDS ORDERED: VANCOMYCIN 1,500 MG in SODIUM CHLORIDE 0.9% 250 ML IVPB ONE (09:00)
[2017-03-21] MEDS: FUROSEMIDE 10 MG/ML 4 ML VIAL IV SCH (11:23)
[2017-03-21] MEDS ORDERED: 1: MVI, ADULT NO.4 WITH VIT K 10 ML, TRACE (CONC-1ML/DOSE) 1 ML, PARENTERAL ELECTROLYTES IV SCH ×9 (12:00)
[2017-03-21 12:14] LABS: Glucose,Whole Blood 185 mg/dL (75-99)
[2017-03-21 13:35] LABS: ABG Base Excess -13.1 mmol/L; ABG HCO3 12 mmol/L (21-25); ABG Oxygen Saturation 99.3 % (94-97); ABG PCO2 24 mmHg (35-45); ABG PH 7.32 (7.35-7.45); ABG PO2 155 mmHg (83-108); ABG TCO2 13 mmol/L (19-24)
[2017-03-21] MEDS: 1: MVI, ADULT NO.4 WITH VIT K 10 ML, TRACE (CONC-1ML/DOSE) 1 ML, PARENTERAL ELECTROLYTES IV SCH ×5 (13:58)
[2017-03-21] MEDS: FAT EMULSION 20% 250 ML in EMPTY BAG 1 BAG IV SCH (13:59)
--- NOTE | 2017-03-21 14:21 | P.PN ---
Subjective Principal diagnosis: Perforated peptic ulcer Patient is more awake on the ventilator now. His sedation is been held. He remains acidotic. Because of the acidosis they are not comfortable weaning from the ventilator any further at this point. Nasogastric tube remains bilious. LOUISA drain is scant serous. He actually denied abdominal pain when I asked him earlier. Objective - Vital Signs Vital signs: Vital Signs Temp 98.1 F 03/21/17 12:00 Pulse 126 H 03/21/17 14:00 Resp 21 03/21/17 14:00 BP 100/56 03/19/17 21:00 Pulse Ox 98 03/21/17 14:00 Intake & Output 03/20/17 03/21/17 03/21/17 18:59 06:59 18:59 Intake Total 9326.971 1870.443 1402.688 Output Total 765 528 830 Balance 1150.818 582.443 572.688 Weight 96.5 kg 98.8 kg 98.8 kg Intake: IV 1120.0 1020.0 785.0 Dextrose 5% in Water 1, 550 425 000 ml @ 50 mls/hr IV . Q23H [facility] with Sod Bicarb Syr 8.4% (1 Meq/ml) 150 ml Rx#:[id number] Fluconazole in NaCl Iso- 50 Osm 100mg in Saline 1 50ml.bag @50mls/hr IVPB Daily Mvi, Adult No.4 with Vit 330 250 K 10 ml Trace (Conc-1Ml/ Dose) 1 ml Parenteral Electrolytes 20 ml In Amino Acid 5%-D15w 1,000 ml @ 30 mls/hr IV .Q24H [facility] Rx#:[id number] Piperacillin-Tazobactam 3 50.0 50.0 50.0 .375 gm In Dextrose/Water 1 50ml.bag @ 12.5 mls/hr IVPB Q12HR [facility] Rx#: [id number] Sodium Chloride 0.9% 1, 870 90 10 000 ml @ 40 mls/hr IV . Q24H [facility] Rx#:[id number] metroNIDAZOLE-NS PMX 500 200 mg In Saline 1 100ml.bag @ 100 mls/hr IVPB Q8HR [facility] Rx#:[id number] Intake, IV Titration 795.818 90.443 617.688 Amount Dextrose 5% in Water 1, 150 50 000 ml @ 50 mls/hr IV . Q23H [facility] with Sod Bicarb Syr 8.4% (1 Meq/ml) 150 ml Rx#:[id number] Fat Emulsion 20% 250 ml 42 In Empty Bag 1 bag @ 21 mls/hr IV DAILY@1400 [facility] Rx#:[id number] Fluconazole in NaCl,Iso- 50 Osm 100 mg In Saline 1 50ml.bag @ 50 mls/hr IVPB DAILY [facility] Rx#:[id number] Mvi, Adult No.4 with Vit 200 K 10 ml Trace (Conc-1Ml/ Dose) 1 ml Parenteral Electrolytes 20 ml Potassium Acetate 10 meq In Amino Acid 5%-D15w 1, 000 ml @ 100 mls/hr IV . BY DURATION [facility] Rx#: [id number] Norepinephrin 16 mg-0.9% 44.208 10.443 0.688 Ns Pmx 16 mg In 250 ml @ Titrate IV .Q0M [facility] Rx#: [id number] Parenteral Electrolytes 90 30 20 ml In Amino Acid 5%- D15w 1,000 ml @ 90 mls/hr IV .BY DURATION [facility] Rx#: [id number] Propofol 1,000 mg In 100 27.61 ml @ Titrate IV .Q0M [facility] Rx#:[id number] Vancomycin 1,500 mg In 375 Sodium Chloride 0.9% 250 ml @ 125 mls/hr IVPB ONCE [facility] Rx#:[id number] Vancomycin 2,000 mg In 334 Sodium Chloride 0.9% 500 ml @ 167 mls/hr IVPB ONCE ONE Rx#:[id number] metroNIDAZOLE-NS PMX 500 100 mg In Saline 1 100ml.bag @ 100 mls/hr IVPB Q8HR [facility] Rx#:[id number] Output: Drainage 25 Right Upper Abdomen 25 Urine 640 528 680 Stool 0 Emesis 100 150 Other: Voiding Method Indwelling Catheter Indwelling Catheter Indwelling Catheter # Bowel Movements 1 ABP, PAP, CO, CI - Last Documented Arterial Blood Pressure 110/50 - Exam Abdomen: Soft, mild distention, it edema of the abdominal wall noted, incision clean - Labs CBC & Chem 7: 03/21/17 04:15 03/21/17 04:15 Labs: Abnormal Lab Results - Last 24 Hours (Table) 03/20/17 03/20/17 03/20/17 Range/Units 16:49 20:07 23:57 WBC (3.8-10.6) k/uL RBC (4.30-5.90) m/uL Hgb (13.0-17.5) gm/dL Hct (39.0-53.0) % RDW (11.5-15.5) % Plt Count (150-450) k/uL Neutrophils # (1.3-7.7) k/uL Lymphocytes # (1.0-4.8) k/uL ABG pH (7.35-7.45) ABG pCO2 (35-45) mmHg ABG pO2 (83-108) mmHg ABG HCO3 (21-25) mmol/L ABG Total CO2 (19-24) mmol/L ABG O2 Saturation (94-97) % Sodium (137-145) mmol/L Chloride (98-107) mmol/L Carbon Dioxide (22-30) mmol/L BUN (9-20) mg/dL Creatinine (0.66-1.25) mg/dL Glucose (74-99) mg/dL POC Glucose (mg/dL) 152 H 197 H 208 H (75-99) mg/dL Calcium (8.4-10.2) mg/dL Phosphorus (2.5-4.5) mg/dL Albumin (3.5-5.0) g/dL 03/21/17 03/21/17 03/21/17 Range/Units 03:46 04:11 04:15 WBC 14.1 H (3.8-10.6) k/uL RBC 2.94 L (4.30-5.90) m/uL Hgb 8.5 L (13.0-17.5) gm/dL Hct 27.2 L (39.0-53.0) % RDW 15.7 H (11.5-15.5) % Plt Count 106 L (150-450) k/uL Neutrophils # 12.3 H (1.3-7.7) k/uL Lymphocytes # 0.9 L (1.0-4.8) k/uL ABG pH 7.30 L (7.35-7.45) ABG pCO2 26 L (35-45) mmHg ABG pO2 163 H (83-108) mmHg ABG HCO3 12 L (21-25) mmol/L ABG Total CO2 13 L (19-24) mmol/L ABG O2 Saturation 99.0 H (94-97) % Sodium (137-145) mmol/L Chloride (98-107) mmol/L Carbon Dioxide (22-30) mmol/L BUN (9-20) mg/dL Creatinine (0.66-1.25) mg/dL Glucose (74-99) mg/dL POC Glucose (mg/dL) 151 H (75-99) mg/dL Calcium (8.4-10.2) mg/dL Phosphorus (2.5-4.5) mg/dL Albumin (3.5-5.0) g/dL 03/21/17 03/21/17 03/21/17 Range/Units 04:15 08:04 12:12 WBC (3.8-10.6) k/uL RBC (4.30-5.90) m/uL Hgb (13.0-17.5) gm/dL Hct (39.0-53.0) % RDW (11.5-15.5) % Plt Count (150-450) k/uL Neutrophils # (1.3-7.7) k/uL Lymphocytes # (1.0-4.8) k/uL ABG pH (7.35-7.45) ABG pCO2 (35-45) mmHg ABG pO2 (83-108) mmHg ABG HCO3 (21-25) mmol/L ABG Total CO2 (19-24) mmol/L ABG O2 Saturation (94-97) % Sodium 147 H (137-145) mmol/L Chloride 124 H* (98-107) mmol/L Carbon Dioxide 11 L (22-30) mmol/L BUN 91 H* (9-20) mg/dL Creatinine 4.70 H (0.66-1.25) mg/dL Glucose 152 H (74-99) mg/dL POC Glucose (mg/dL) 154 H 185 H (75-99) mg/dL Calcium 7.6 L (8.4-10.2) mg/dL Phosphorus 4.7 H (2.5-4.5) mg/dL Albumin 1.7 L (3.5-5.0) g/dL 03/21/17 Range/Units 13:25 WBC (3.8-10.6) k/uL RBC (4.30-5.90) m/uL Hgb (13.0-17.5) gm/dL Hct (39.0-53.0) % RDW (11.5-15.5) % Plt Count (150-450) k/uL Neutrophils # (1.3-7.7) k/uL Lymphocytes # (1.0-4.8) k/uL ABG pH 7.32 L (7.35-7.45) ABG pCO2 24 L (35-45) mmHg ABG pO2 155 H (83-108) mmHg ABG HCO3 12 L (21-25) mmol/L ABG Total CO2 13 L (19-24) mmol/L ABG O2 Saturation 99.3 H (94-97) % Sodium (137-145) mmol/L Chloride (98-107) mmol/L Carbon Dioxide (22-30) mmol/L BUN (9-20) mg/dL Creatinine (0.66-1.25) mg/dL Glucose (74-99) mg/dL POC Glucose (mg/dL) (75-99) mg/dL Calcium (8.4-10.2) mg/dL Phosphorus (2.5-4.5) mg/dL Albumin (3.5-5.0) g/dL Microbiology - Last 24 Hours (Table) 03/16/17 16:30 Blood Culture - Preliminary Blood No Growth after 96 hours Assessment and Plan (1) Free intraperitoneal air Narrative/Plan: Continue IV antibiotics. Monitor urinary function. Continue TPN and nothing by mouth. Status: Acute
[2017-03-21 16:11] LABS: Glucose,Whole Blood 312 mg/dL (75-99)
--- NOTE | 2017-03-21 17:04 | P.PN ---
Subjective A 66-year-old male patient who came into the intensive care unit after undergoing expiratory laparotomy and repair of a perforated peptic ulcer with a modified Don patch and open cholecystectomy. Surgery was done last night and the patient was brought into the intensive care unit intubated on a mechanical ventilator. According to the reported history the patient was having 3-4 days history of a vague abdominal pain. This being gradually got worse. The patient was also having constipation. He had some nausea without vomiting. Appetite was diminished. No bright red blood per rectum. The pain was mainly over the central abdomen. No history of any peptic ulcer disease or diverticular disease. The x-ray of the abdomen in the emergency department showed pneumoperitoneum and the CAT scan confirmed the presence of a large volume of free air. The gallbladder was also thickened. The majority of the air was in the upper abdomen. Intraoperatively, the patient was found to have a perforated peptic ulcer and a gangrenous gallbladder. The patient is currently in the intensive care unit. The patient has received a total of 7 L of IV fluids. He has chronic renal failure and had developed acute kidney injury on top of chronic renal insufficiency and currently is oliguric producing only 5-10 mL an hour of urine output. The patient is intubated on a mechanical ventilator. The patient on assist control mode at the rate of 10, tidal volume 450, FiO2 of 40% and a PEEP of 5. His blood. From this morning showed a pH of 7.31 with a pCO2 of 27 and pO2 of 198 and based on that the FiO2 was weaned down. Chest x-ray shows no pneumothorax or pneumoperitoneum. ET tube is in a good location. Hemodynamically, the patient was doing poorly. He was in septic shock. He was tachycardic with a heart rate in the 1:30 range. This improved with fluid resuscitation his current heart rate is sinus at 110. He also was on higher doses of pressors and norepinephrine infusion was running at 25 mics and currently is down to 50 mics. He is covered with a combination of IV Zosyn, IV Diflucan and IV Flagyl. He is afebrile for now. Is sedated with Diprivan. He has a below-knee amputation on the right lower extremity and the feet on the left lower extremity shows marked diminished pulses at is obtainable by Doppler. Lactic acid level was 5.4 at time of admission is currently down to 2.7. He has a right IJ triple-lumen catheter. He has a right upper extremity radial art line. He also has a LOUISA drain in his right lower quadrant area. On 03/18/2017 I'm seeing this patient in the follow-up. The patient remains intubated on a mechanical ventilator. He remains an assist-control mode of ventilation at a tidal volume 450, rate of 24, FiO2 of 40% and a PEEP of 5. His blood gases from this morning showed a pH of 7.26 with a pCO2 of 30 and pO2 of 155. Chest x-ray from this morning shows small bilateral pleural effusions, ET tube is in a good location, NG tube is in a good location and there is no acute pulmonary infiltrates or consolidations. Hemodynamically, the patient is still pressor dependent at 15 mics. Overnight he had to be as high as 20 mics and then he got weaned again down to 15 g of norepinephrine infusion. Urine output is gradually improving. Over the past 12 hours he produced approximately 50 mL of urine output. The patient is still having intermittent renal function and the creatinine still elevated at 4.8 which is comparable to yesterday. Rest of the electrodes are within normal. The patient is still acidotic with a bicarb level of 13. He received a total of 3 L of normal saline and 2 A of 12.5 g of albumin. He is still on a combination of Zosyn, Flagyl and Diflucan. All of the cultures of been negative. He remains nothing by mouth. Surgical wound site is clean and intact. LOUISA drain is draining approximately 50 mL of serosanguineous material. On 03/19/2017 the patient remains intubated on a mechanical ventilator. He is still respiratory failure. He is still in shock. He remains assist-control mode of ventilation with essentially the same vent settings. He is still requiring pressors and levo fed is running somewhere between 8-10 mics. He is afebrile. Echocardiogram was done at the bedside and showed a preserved LV function without any signs of heart failure. Remains sedated on Diprivan. A sedation holiday will be given to him today and try to lower down agree off sedation if possible. Remains on broad-spectrum antibiotics. Surgical wound site is dry clean and intact. Continues to be an acute kidney injury on top of chronic renal failure. No major improvement in the renal function although the patient has become nonoliguric at this point. He is producing adequate amount of urine output. His been aggressively resuscitated IV fluids and colloids and he is in a positive fluid balance and he has demonstrated some edema both in the upper and lower extremities. He remains acidotic. A follow-up lactic acid level will be obtained. Remains nothing by mouth. No clearance from surgery for enteral feeding. No TPN initiated yet. The patient is seen again today 03/20/2017 in follow-up in the intensive care unit. He remains intubated on the mechanical ventilator and assist control mode with a rate of 24, tidal volume 450, FiO2 40% and a PEEP of 5. Morning blood gases reveal a P O2 170, pCO2 of 26 and a pH of 7.20. This was done on 40 % FiO2. He is currently off sedation. He is fluttering his eyelids open but not following any commands at this point. He remains on norepinephrine currently at 3 mcg/m. He is also on a 0.9 normal saline at 40 miles per hour. His chest x-ray does show overall stable findings, there is low lung volumes with small bilateral pleural effusions and basilar atelectasis. His sputum culture reveals methicillin-resistant Staphylococcus aureus. Blood culture reveals no growth to date. He remains on vancomycin and metronidazole. He did have 150 MLS returned from the gastric tube which remains to suction. He does remain acidotic with a bicarb of 9. Chloride is 123. Current BUN 83, creatinine 4.41. The patient is seen again today 03/21/2017 in follow-up in the intensive care unit. He remains intubated on mechanical ventilator at a rate of 24, tidal volume 450, FiO2 40% and a PEEP of 5. Morning blood gases reveal a pH of 7.30, pCO2 of 26, pO2 of 163. The patient does remain off sedation and does open his eyes and follows simple commands. He is quite weak. He is currently off pressors. His white count is improving currently 14.1. Hemoglobin stable at 8.5. Sodium 147, chloride 124, bicarb improved to 11. Creatinine remains high at 4.70. He had been initiated on a bicarbonate drip yesterday to improve his acidosis.. Objective - Vital Signs Vital signs: Vital Signs Temp 98.1 F 03/21/17 12:00 Pulse 98 03/21/17 16:01 Resp 21 03/21/17 14:00 BP 100/56 03/19/17 21:00 Pulse Ox 98 03/21/17 14:00 Intake & Output 03/20/17 03/21/17 03/21/17 18:59 06:59 18:59 Intake Total 6938.253 1272.443 1402.688 Output Total 765 528 830 Balance 1150.818 582.443 572.688 Weight 96.5 kg 98.8 kg 98.8 kg Intake: IV 1120.0 1020.0 785.0 Dextrose 5% in Water 1, 550 425 000 ml @ 50 mls/hr IV . Q23H [facility] with Sod Bicarb Syr 8.4% (1 Meq/ml) 150 ml Rx#:[id number] Fluconazole in NaCl Iso- 50 Osm 100mg in Saline 1 50ml.bag @50mls/hr IVPB Daily Mvi, Adult No.4 with Vit 330 250 K 10 ml Trace (Conc-1Ml/ Dose) 1 ml Parenteral Electrolytes 20 ml In Amino Acid 5%-D15w 1,000 ml @ 30 mls/hr IV .Q24H ONE Rx#:[id number] Piperacillin-Tazobactam 3 50.0 50.0 50.0 .375 gm In Dextrose/Water 1 50ml.bag @ 12.5 mls/hr IVPB Q12HR [facility] Rx#: [id number] Sodium Chloride 0.9% 1, 870 90 10 000 ml @ 40 mls/hr IV . Q24H [facility] Rx#:[id number] metroNIDAZOLE-NS PMX 500 200 mg In Saline 1 100ml.bag @ 100 mls/hr IVPB Q8HR [facility] Rx#:[id number] Intake, IV Titration 795.818 90.443 617.688 Amount Dextrose 5% in Water 1, 150 50 000 ml @ 50 mls/hr IV . Q23H XENA with Sod Bicarb Syr 8.4% (1 Meq/ml) 150 ml Rx#:[id number] Fat Emulsion 20% 250 ml 42 In Empty Bag 1 bag @ 21 mls/hr IV DAILY@1400 X[facility] Rx#:[id number] Fluconazole in NaCl,Iso- 50 Osm 100 mg In Saline 1 50ml.bag @ 50 mls/hr IVPB DAILY [facility] Rx#:[id number] Mvi, Adult No.4 with Vit 200 K 10 ml Trace (Conc-1Ml/ Dose) 1 ml Parenteral Electrolytes 20 ml Potassium Acetate 10 meq In Amino Acid 5%-D15w 1, 000 ml @ 100 mls/hr IV . BY DURATION [facility] Rx#: [id number] Norepinephrin 16 mg-0.9% 44.208 10.443 0.688 Ns Pmx 16 mg In 250 ml @ Titrate IV .Q0M [facility] Rx#: [id number] Parenteral Electrolytes 90 30 20 ml In Amino Acid 5%- D15w 1,000 ml @ 90 mls/hr IV .BY DURATION [facility] Rx#: [id number] Propofol 1,000 mg In 100 27.61 ml @ Titrate IV .Q0M [facility] Rx#:[id number] Vancomycin 1,500 mg In 375 Sodium Chloride 0.9% 250 ml @ 125 mls/hr IVPB ONCE ONE Rx#:[id number] Vancomycin 2,000 mg In 334 Sodium Chloride 0.9% 500 ml @ 167 mls/hr IVPB ONCE ONE Rx#:[id number] metroNIDAZOLE-NS PMX 500 100 mg In Saline 1 100ml.bag @ 100 mls/hr IVPB Q8HR [facility] Rx#:[id number] Output: Drainage 25 Right Upper Abdomen 25 Urine 640 528 680 Stool 0 Emesis 100 150 Other: Voiding Method Indwelling Catheter Indwelling Catheter Indwelling Catheter # Bowel Movements 1 ABP, PAP, CO, CI - Last Documented Arterial Blood Pressure 110/50 - Exam Patient is comfortable and tolerating the mechanical ventilator.Head exam was generally normal. There was no scleral icterus or corneal arcus. Mucous membranes were moist. Neck is supple and the patient has a right IJ triple- lumen catheter. The patient also has an orogastric and NG tube in place.Lungs were clear to auscultation and percussion, and with normal diaphragmatic excursion. No wheezes or rales were noted. Cardiac exam revealed the PMI to be normally situated and sized. The rhythm was regular and no extrasystoles were noted during several minutes of auscultation. The first and second heart sounds were normal and physiologic splitting of the second heart sound was noted. There were no murmurs, rubs, clicks, or gallops. Abdomen is soft. Bowel sounds are absent. There is a midabdominal large skin wound which is dry clean and intact and the patient has a right lower quadrant LOUISA drain in place. No ascites. Extremities show below-knee amputation on the right, 4 of the toes are missing in the left foot with diminished pulses at the obtained by Doppler signal. Neurologically the patient is sedated. He can withdraw to deep painful stimuli. - Labs CBC & Chem 7: 03/21/17 04:15 03/21/17 16:10 Labs: Abnormal Lab Results - Last 24 Hours (Table) 03/20/17 03/20/17 03/20/17 Range/Units 16:49 20:07 23:57 WBC (3.8-10.6) k/uL RBC (4.30-5.90) m/uL Hgb (13.0-17.5) gm/dL Hct (39.0-53.0) % RDW (11.5-15.5) % Plt Count (150-450) k/uL Neutrophils # (1.3-7.7) k/uL Lymphocytes # (1.0-4.8) k/uL ABG pH (7.35-7.45) ABG pCO2 (35-45) mmHg ABG pO2 (83-108) mmHg ABG HCO3 (21-25) mmol/L ABG Total CO2 (19-24) mmol/L ABG O2 Saturation (94-97) % Sodium (137-145) mmol/L Chloride (98-107) mmol/L Carbon Dioxide (22-30) mmol/L BUN (9-20) mg/dL Creatinine (0.66-1.25) mg/dL Glucose (74-99) mg/dL POC Glucose (mg/dL) 152 H 197 H 208 H (75-99) mg/dL Calcium (8.4-10.2) mg/dL Phosphorus (2.5-4.5) mg/dL Albumin (3.5-5.0) g/dL 03/21/17 03/21/17 03/21/17 Range/Units 03:46 04:11 04:15 WBC 14.1 H (3.8-10.6) k/uL RBC 2.94 L (4.30-5.90) m/uL Hgb 8.5 L (13.0-17.5) gm/dL Hct 27.2 L (39.0-53.0) % RDW 15.7 H (11.5-15.5) % Plt Count 106 L (150-450) k/uL Neutrophils # 12.3 H (1.3-7.7) k/uL Lymphocytes # 0.9 L (1.0-4.8) k/uL ABG pH 7.30 L (7.35-7.45) ABG pCO2 26 L (35-45) mmHg ABG pO2 163 H (83-108) mmHg ABG HCO3 12 L (21-25) mmol/L ABG Total CO2 13 L (19-24) mmol/L ABG O2 Saturation 99.0 H (94-97) % Sodium (137-145) mmol/L Chloride (98-107) mmol/L Carbon Dioxide (22-30) mmol/L BUN (9-20) mg/dL Creatinine (0.66-1.25) mg/dL Glucose (74-99) mg/dL POC Glucose (mg/dL) 151 H (75-99) mg/dL Calcium (8.4-10.2) mg/dL Phosphorus (2.5-4.5) mg/dL Albumin (3.5-5.0) g/dL 03/21/17 03/21/17 03/21/17 Range/Units 04:15 08:04 12:12 WBC (3.8-10.6) k/uL RBC (4.30-5.90) m/uL Hgb (13.0-17.5) gm/dL Hct (39.0-53.0) % RDW (11.5-15.5) % Plt Count (150-450) k/uL Neutrophils # (1.3-7.7) k/uL Lymphocytes # (1.0-4.8) k/uL ABG pH (7.35-7.45) ABG pCO2 (35-45) mmHg ABG pO2 (83-108) mmHg ABG HCO3 (21-25) mmol/L ABG Total CO2 (19-24) mmol/L ABG O2 Saturation (94-97) % Sodium 147 H (137-145) mmol/L Chloride 124 H* (98-107) mmol/L Carbon Dioxide 11 L (22-30) mmol/L BUN 91 H* (9-20) mg/dL Creatinine 4.70 H (0.66-1.25) mg/dL Glucose 152 H (74-99) mg/dL POC Glucose (mg/dL) 154 H 185 H (75-99) mg/dL Calcium 7.6 L (8.4-10.2) mg/dL Phosphorus 4.7 H (2.5-4.5) mg/dL Albumin 1.7 L (3.5-5.0) g/dL 03/21/17 03/21/17 Range/Units 13:25 16:09 WBC (3.8-10.6) k/uL RBC (4.30-5.90) m/uL Hgb (13.0-17.5) gm/dL Hct (39.0-53.0) % RDW (11.5-15.5) % Plt Count (150-450) k/uL Neutrophils # (1.3-7.7) k/uL Lymphocytes # (1.0-4.8) k/uL ABG pH 7.32 L (7.35-7.45) ABG pCO2 24 L (35-45) mmHg ABG pO2 155 H (83-108) mmHg ABG HCO3 12 L (21-25) mmol/L ABG Total CO2 13 L (19-24) mmol/L ABG O2 Saturation 99.3 H (94-97) % Sodium (137-145) mmol/L Chloride (98-107) mmol/L Carbon Dioxide (22-30) mmol/L BUN (9-20) mg/dL Creatinine (0.66-1.25) mg/dL Glucose (74-99) mg/dL POC Glucose (mg/dL) 312 H (75-99) mg/dL Calcium (8.4-10.2) mg/dL Phosphorus (2.5-4.5) mg/dL Albumin (3.5-5.0) g/dL Microbiology - Last 24 Hours (Table) 03/16/17 16:30 Blood Culture - Preliminary Blood No Growth after 96 hours Assessment and Plan Plan: Assessment 1 acute abdomen status post extra laparotomy and repair of a perforated peptic ulcer a modified Don patch and open cholecystectomy. Patient is postop day # 5. 2 shock likely septic in nature secondary to intra-abdominal sepsis complicated by perforated peptic ulcer and cholecystitis. Patient off pressors. 3 hypotension secondary to above , recovered, off pressors 4 acute respiratory failure, a complication of septic shock and methicillin resistant Staphylococcus aureus. Remains intubated on a mechanical ventilator. Oxygenating and ventilating well. 5 acute kidney injury on top of chronic renal failure. The patient has stage II kidney disease at baseline due to diabetic nephropathy. Acute kidney injury related to hypotension/sepsis due to ATN. The patient remains in acute kidney injury. His urine output has improved. Creatinine is elevated at 4.70. He remains to be acidotic with a bicarb of 11. 6 acute lactic acidosis, improving, and still he has a component of metabolic acidosis on today's blood work. 7 diabetes mellitus with poorly controlled blood sugar secondary to sepsis currently on insulin drip for blood sugar control. 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 Plan: The patient was seen and evaluated by Dr. Lopez. His chest x-ray, ABGs and labs were reviewed. The patient was given a sedation holiday and placed on CPAP. He did get quite hypertensive and tachycardic. He was placed back on his current vent settings were continued. Sedation remains off currently. In the interim we'll continue with his current antibiotics. We'll continue with bronchodilators every 4 hours. He remains on heparin subcutaneous for DVT prophylaxis. Protonix for GI prophylaxis. TPN and lipids continue. We'll repeat his chest x-ray, ABGs and labs in the a.m. We will continue to follow. Critical care time 35 minutes. Time with Patient: Greater than 30
[2017-03-21 20:16] LABS: Glucose,Whole Blood 348 mg/dL (75-99)
[2017-03-21 20:59] LABS: Glucose,Whole Blood 360 mg/dL (75-99)
--- NOTE | 2017-03-21 22:12 | P.PN ---
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 [facility] most recently under the care of Dr. Gordon and discharged in August 2016 after a dehiscence of the right below the knee wound healed. Patient presented to [facility] emergency center on March 16 with generalized weakness and abdominal pain for at least couple days up to 1 week with concerns for constipation and was taking laxatives with no improvement. Patient also had decreased appetite and pain was gradually worsening. There was nausea without vomiting. Chest x-ray showed pneumoperitoneum and left basilar atelectasis with no heart failure. Abdominal films also showed pneumoperitoneum. CAT scan of the abdomen and pelvis without contrast and was found have a large pneumoperitoneum, large ascites, large nonobstructive right renal calculi and possible gallbladder thickening with concern for gangrenous gallbladder. Patient was taken to the OR by Dr. Wiley for exploratory laparotomy with repair of perforated peptic ulcer and open cholecystectomy. Patient was then transferred to the intensive care unit where he remains intubated and on mechanical ventilation. Patient presented with severe sepsis and septic shock status post 7 1/2 liters of fluid currently on levo at 20 mics. He did not have a urine output for the day shift thus far. O2 needs have decreased however. He is currently on IV antimicrobials in the form of fluconazole, Flagyl and Zosyn. Blood cultures status received and urine culture status received. C. difficile toxin was negative. Patient is noted to have a stage II decubitus ulcer on his buttocks that was present on admission. There has been little improvement the day today. He is on less vasopressor therapy however. Responded to fluids. Urine output is started to improve. Still has acute renal failure. He has on a sedation holiday. Tolerating ventilation well. Did not do well with weaning parameters today. Continues to be evaluated for weaning daily. Objective - Vital Signs Vital signs: Vital Signs Temp 97.8 F 03/21/17 20:00 Pulse 116 H 03/21/17 21:00 Resp 32 H 03/21/17 21:00 BP 100/56 03/19/17 21:00 Pulse Ox 96 03/21/17 21:00 Intake & Output 03/21/17 03/21/17 03/22/17 06:59 18:59 06:59 Intake Total 8067.425 5885.688 252 Output Total 528 1755 315 Balance 582.443 131.688 -63 Weight 98.8 kg 98.8 kg Intake: IV 1020.0 785.0 10 Dextrose 5% in Water 1, 550 425 000 ml @ 50 mls/hr IV . Q23H [facility] with Sod Bicarb Syr 8.4% (1 Meq/ml) 150 ml Rx#:[id number] Fluconazole in NaCl Iso- 50 Osm 100mg in Saline 1 50ml.bag @50mls/hr IVPB Daily Mvi, Adult No.4 with Vit 330 250 K 10 ml Trace (Conc-1Ml/ Dose) 1 ml Parenteral Electrolytes 20 ml In Amino Acid 5%-D15w 1,000 ml @ 30 mls/hr IV .Q24H [facility] Rx#:[id number] Piperacillin-Tazobactam 3 50.0 50.0 .375 gm In Dextrose/Water 1 50ml.bag @ 12.5 mls/hr IVPB Q12HR [facility] Rx#: [id number] Sodium Chloride 0.9% 1, 90 10 10 000 ml @ 40 mls/hr IV . Q24H [facility] Rx#:[id number] Intake, IV Titration 90.443 1101.688 121 Amount Dextrose 5% in Water 1, 50 000 ml @ 50 mls/hr IV . Q23H [facility] with Sod Bicarb Syr 8.4% (1 Meq/ml) 150 ml Rx#:[id number] Fat Emulsion 20% 250 ml 126 21 In Empty Bag 1 bag @ 21 mls/hr IV DAILY@1400 [facility] Rx#:[id number] Mvi, Adult No.4 with Vit 600 100 K 10 ml Trace (Conc-1Ml/ Dose) 1 ml Parenteral Electrolytes 20 ml Potassium Acetate 10 meq In Amino Acid 5%-D15w 1, 000 ml @ 100 mls/hr IV . BY DURATION [facility] Rx#: [id number] Norepinephrin 16 mg-0.9% 10.443 0.688 Ns Pmx 16 mg In 250 ml @ Titrate IV .Q0M [facility] Rx#: [id number] Parenteral Electrolytes 30 20 ml In Amino Acid 5%- D15w 1,000 ml @ 90 mls/hr IV .BY DURATION [facility] Rx#: [id number] Vancomycin 1,500 mg In 375 Sodium Chloride 0.9% 250 ml @ 125 mls/hr IVPB ONCE [facility] Rx#:[id number] TPN/PPN 100 Mvi, Adult No.4 with Vit 100 K 10 ml Trace (Conc-1Ml/ Dose) 1 ml Parenteral Electrolytes 20 ml In Amino Acid 5%-D15w 1,000 ml @ 30 mls/hr IV .Q24H [facility] Rx#:[id number] Lipid 21 Mvi, Adult No.4 with Vit 21 K 10 ml Trace (Conc-1Ml/ Dose) 1 ml Parenteral Electrolytes 20 ml In Amino Acid 5%-D15w 1,000 ml @ 30 mls/hr IV .Q24H [facility] Rx#:[id number] Output: Drainage 0 Right Upper Abdomen 0 Urine 528 1355 315 Stool 0 Emesis 400 Other: Voiding Method Indwelling Catheter Indwelling Catheter Indwelling Catheter # Bowel Movements 1 ABP, PAP, CO, CI - Last Documented Arterial Blood Pressure 179/70 - Exam Gen: This is an obese 66-year-old male. He is seen in the ICU, intubated and on mechanical ventilation. Patient appears comfortable and in no acute distress. HEENT: Head is atraumatic, normocephalic. Oral ET and gastric tube in place. White coating noted on the tongue. Mucous membranes are slightly dry.. NECK: Supple. No JVD. No lymphadenopathy. Trachea midline. LUNGS: Clear to auscultation. No wheezes or rhonchi. No intercostal retractions. HEART: Regular rate and rhythm. No murmur. Patient is tachycardic. ABDOMEN: Soft. Bowel sounds are not present. No masses. No tenderness. LOUISA drain to the right upper abdomen is draining serosanguineous fluid. Dressing to the right upper quadrant and midline are in place with no breakthrough drainage or bleeding. Castellanos catheter in place draining clear pinky urine. EXTREMITIES: No pedal edema to the left lower extremity. Patient has amputations of toes 2 through 5 on the left and a right below the knee amputation. All extremities are cool to the touch. No mottling noted. NEUROLOGICAL: Patient is on a sedation holiday. Eyes are open. Seems very comfortable. Denied pain. - Labs CBC & Chem 7: 0811/17 04:15 03/21/17 16:10 Labs: Abnormal Lab Results - Last 24 Hours (Table) 03/20/17 03/21/17 03/21/17 Range/Units 23:57 03:46 04:11 WBC (3.8-10.6) k/uL RBC (4.30-5.90) m/uL Hgb (13.0-17.5) gm/dL Hct (39.0-53.0) % RDW (11.5-15.5) % Plt Count (150-450) k/uL Neutrophils # (1.3-7.7) k/uL Lymphocytes # (1.0-4.8) k/uL ABG pH 7.30 L (7.35-7.45) ABG pCO2 26 L (35-45) mmHg ABG pO2 163 H (83-108) mmHg ABG HCO3 12 L (21-25) mmol/L ABG Total CO2 13 L (19-24) mmol/L ABG O2 Saturation 99.0 H (94-97) % Sodium (137-145) mmol/L Chloride (98-107) mmol/L Carbon Dioxide (22-30) mmol/L BUN (9-20) mg/dL Creatinine (0.66-1.25) mg/dL Glucose (74-99) mg/dL POC Glucose (mg/dL) 208 H 151 H (75-99) mg/dL Calcium (8.4-10.2) mg/dL Phosphorus (2.5-4.5) mg/dL Albumin (3.5-5.0) g/dL 03/21/17 03/21/17 03/21/17 Range/Units 04:15 04:15 08:04 WBC 14.1 H (3.8-10.6) k/uL RBC 2.94 L (4.30-5.90) m/uL Hgb 8.5 L (13.0-17.5) gm/dL Hct 27.2 L (39.0-53.0) % RDW 15.7 H (11.5-15.5) % Plt Count 106 L (150-450) k/uL Neutrophils # 12.3 H (1.3-7.7) k/uL Lymphocytes # 0.9 L (1.0-4.8) k/uL ABG pH (7.35-7.45) ABG pCO2 (35-45) mmHg ABG pO2 (83-108) mmHg ABG HCO3 (21-25) mmol/L ABG Total CO2 (19-24) mmol/L ABG O2 Saturation (94-97) % Sodium 147 H (137-145) mmol/L Chloride 124 H* (98-107) mmol/L Carbon Dioxide 11 L (22-30) mmol/L BUN 91 H* (9-20) mg/dL Creatinine 4.70 H (0.66-1.25) mg/dL Glucose 152 H (74-99) mg/dL POC Glucose (mg/dL) 154 H (75-99) mg/dL Calcium 7.6 L (8.4-10.2) mg/dL Phosphorus 4.7 H (2.5-4.5) mg/dL Albumin 1.7 L (3.5-5.0) g/dL 03/21/17 03/21/17 03/21/17 Range/Units 12:12 13:25 16:09 WBC (3.8-10.6) k/uL RBC (4.30-5.90) m/uL Hgb (13.0-17.5) gm/dL Hct (39.0-53.0) % RDW (11.5-15.5) % Plt Count (150-450) k/uL Neutrophils # (1.3-7.7) k/uL Lymphocytes # (1.0-4.8) k/uL ABG pH 7.32 L (7.35-7.45) ABG pCO2 24 L (35-45) mmHg ABG pO2 155 H (83-108) mmHg ABG HCO3 12 L (21-25) mmol/L ABG Total CO2 13 L (19-24) mmol/L ABG O2 Saturation 99.3 H (94-97) % Sodium (137-145) mmol/L Chloride (98-107) mmol/L Carbon Dioxide (22-30) mmol/L BUN (9-20) mg/dL Creatinine (0.66-1.25) mg/dL Glucose (74-99) mg/dL POC Glucose (mg/dL) 185 H 312 H (75-99) mg/dL Calcium (8.4-10.2) mg/dL Phosphorus (2.5-4.5) mg/dL Albumin (3.5-5.0) g/dL 03/21/17 03/21/17 Range/Units 20:14 20:57 WBC (3.8-10.6) k/uL RBC (4.30-5.90) m/uL Hgb (13.0-17.5) gm/dL Hct (39.0-53.0) % RDW (11.5-15.5) % Plt Count (150-450) k/uL Neutrophils # (1.3-7.7) k/uL Lymphocytes # (1.0-4.8) k/uL ABG pH (7.35-7.45) ABG pCO2 (35-45) mmHg ABG pO2 (83-108) mmHg ABG HCO3 (21-25) mmol/L ABG Total CO2 (19-24) mmol/L ABG O2 Saturation (94-97) % Sodium (137-145) mmol/L Chloride (98-107) mmol/L Carbon Dioxide (22-30) mmol/L BUN (9-20) mg/dL Creatinine (0.66-1.25) mg/dL Glucose (74-99) mg/dL POC Glucose (mg/dL) 348 H 360 H (75-99) mg/dL Calcium (8.4-10.2) mg/dL Phosphorus (2.5-4.5) mg/dL Albumin (3.5-5.0) g/dL Microbiology - Last 24 Hours (Table) 03/16/17 16:30 Blood Culture - Preliminary Blood No Growth after 120 hours Laboratory Results WBC 14.1 k/uL (3.8-10.6) H 03/21/17 04:15 RBC 2.94 m/uL (4.30-5.90) L 03/21/17 04:15 Hgb 8.5 gm/dL (13.0-17.5) L 03/21/17 04:15 Hct 27.2 % (39.0-53.0) L 03/21/17 04:15 MCV 92.5 fL (80.0-100.0) 03/21/17 04:15 MCH 28.9 pg (25.0-35.0) 03/21/17 04:15 MCHC 31.2 g/dL (31.0-37.0) 03/21/17 04:15 RDW 15.7 % (11.5-15.5) H 03/21/17 04:15 Plt Count 106 k/uL (150-450) L 03/21/17 04:15 Neutrophils % 88 % 03/21/17 04:15 Neutrophils % (Manual) 61.6 % 03/17/17 04:20 Band Neutrophils % 15.2 % 03/17/17 04:20 Lymphocytes % 6 % 03/21/17 04:15 Lymphocytes % (Manual) 18.2 % 03/17/17 04:20 Monocytes % 3 % 03/21/17 04:15 Monocytes % (Manual) 5.1 % 03/17/17 04:20 Eosinophils % 1 % 03/21/17 04:15 Basophils % 0 % 03/21/17 04:15 Metamyelocytes % 4.0 % 03/16/17 22:50 Neutrophils # 12.3 k/uL (1.3-7.7) H 03/21/17 04:15 Neutrophils # (Manual) 7.1 k/uL (1.3-7.7) 03/17/17 04:20 Lymphocytes # 0.9 k/uL (1.0-4.8) L 03/21/17 04:15 Lymphocytes # (Manual) 1.7 k/uL (1.0-4.8) 03/17/17 04:20 Monocytes # 0.4 k/uL (0-1.0) 03/21/17 04:15 Monocytes # (Manual) 0.5 k/uL (0-1.0) 03/17/17 04:20 Eosinophils # 0.2 k/uL (0-0.7) 03/21/17 04:15 Basophils # 0.0 k/uL (0-0.2) 03/21/17 04:15 Nucleated RBCs 0 /100 WBC (0-0) 03/17/17 04:20 Manual Slide Review Performed 03/17/17 04:20 Toxic Granulation Present 03/16/17 16:30 RBC Morphology Normal 03/16/17 16:30 Hypochromasia Slight 03/20/17 04:45 PT 10.4 sec (9.0-12.0) 03/16/17 16:30 INR 1.0 (<1.2) 03/16/17 16:30 APTT 22.1 sec (22.0-30.0) 03/16/17 16:30 Sample Site A-LINE 03/21/17 13:25 ABG pH 7.32 (7.35-7.45) L 03/21/17 13:25 ABG pCO2 24 mmHg (35-45) L 03/21/17 13:25 ABG pO2 155 mmHg (83-108) H 03/21/17 13:25 ABG HCO3 12 mmol/L (21-25) L 03/21/17 13:25 ABG Total CO2 13 mmol/L (19-24) L 03/21/17 13:25 ABG O2 Saturation 99.3 % (94-97) H 03/21/17 13:25 ABG Base Excess -13.1 mmol/L 03/21/17 13:25 ABG Hematocrit 29 % (34.0-46.0) L 03/16/17 21:12 ABG Lactic Acid 0.7 mmol/L (0.5-1.6) 03/20/17 04:45 VBG pH 7.25 (7.31-7.41) L 03/16/17 16:30 VBG pCO2 29 mmHg (37-51) L 03/16/17 16:30 VBG HCO3 12 mmol/L (24-28) L 03/16/17 16:30 FiO2 40 % 03/21/17 13:25 Sodium 147 mmol/L (137-145) H 03/21/17 04:15 Potassium 4.4 mmol/L (3.5-5.1) 03/21/17 16:10 Chloride 124 mmol/L (98-107) H* 03/21/17 04:15 Carbon Dioxide 11 mmol/L (22-30) L 03/21/17 04:15 Anion Gap 12 mmol/L 03/21/17 04:15 BUN 91 mg/dL (9-20) H* 03/21/17 04:15 Creatinine 4.70 mg/dL (0.66-1.25) H 03/21/17 04:15 Est GFR (MDRD) Af Amer 15 (>60 ml/min/1.73 sqM) 03/21/17 04:15 Est GFR (MDRD) Non-Af 13 (>60 ml/min/1.73 sqM) 03/21/17 04:15 Glucose 152 mg/dL (74-99) H 03/21/17 04:15 POC Glucose (mg/dL) 360 mg/dL (75-99) H 03/21/17 20:57 POC Glu [employer] ID Rayna Murray A 03/21/17 20:[address] Glu mg/dL 174 mg/dL 03/17/17 04:20 Hemoglobin A1c 7.7 % (4.2-6.1) H 03/17/17 04:20 Lactic Ac Sepsis Rflx Y 03/16/17 16:57 Plasma Lactic Acid Mario 2.8 mmol/L (0.7-2.0) H* 03/16/17 22:42 Calcium 7.6 mg/dL (8.4-10.2) L 03/21/17 04:15 Ionized Calcium Valorie 5.2 mg/dL (4.5-5.3) 03/21/17 04:15 Phosphorus 4.7 mg/dL (2.5-4.5) H 03/21/17 04:15 Magnesium 2.3 mg/dL (1.6-2.3) 03/21/17 04:15 Total Bilirubin 1.5 mg/dL (0.2-1.3) H 03/20/17 11:36 AST 19 U/L (17-59) 03/20/17 11:36 ALT 28 U/L (21-72) 03/20/17 11:36 Alkaline Phosphatase 60 U/L (38-126) 03/20/17 11:36 Total Creatine Kinase 216 U/L (55-170) H 03/16/17 16:30 CK-MB (CK-2) 2.9 ng/mL (0.0-2.4) H* 03/16/17 16:30 CK-MB (CK-2) Rel Index 1.3 03/16/17 16:30 Troponin I 0.590 ng/mL (0.000-0.034) H* 03/16/17 16:30 Total Protein 3.4 g/dL (6.3-8.2) L 03/20/17 11:36 Albumin 1.7 g/dL (3.5-5.0) L 03/21/17 04:15 Triglycerides 115 mg/dL (<150) 03/21/17 04:15 TSH 0.672 mIU/L (0.465-4.680) 03/16/17 16:30 Urine Color Dark Yellow 03/16/17 19:00 Urine Appearance Cloudy (Clear) 03/16/17 19:00 Urine pH 5.0 (5.0-8.0) 03/16/17 19:00 Ur Specific [place] 1.017 (1.001-1.035) 03/16/17 19:00 Urine Protein 1+ (Negative) H 03/16/17 19:00 Urine Glucose (UA) 1+ (Negative) H 03/16/17 19:00 Urine Ketones Negative (Negative) 03/16/17 19:00 Urine Blood Trace (Negative) H 03/16/17 19:00 Urine Nitrite Negative (Negative) 03/16/17 19:00 Urine Bilirubin Negative (Negative) 03/16/17 19:00 Urine Urobilinogen <2.0 mg/dL (<2.0) 03/16/17 19:00 Ur Leukocyte Esterase Negative (Negative) 03/16/17 19:00 Urine RBC 15 /hpf (0-5) H 03/16/17 19:00 Urine WBC 4 /hpf (0-5) 03/16/17 19:00 Amorphous Sediment Occasional /hpf (None) H 03/16/17 19:00 Hyaline Casts 110 /lpf (0-2) H 03/16/17 19:00 C. difficile (EIA) Intrp Negative (Negative) 03/16/17 23:00 Blood Type A Positive 03/16/17 16:30 Blood Type Recheck No 03/16/17 16:30 Antibody Screen NEGATIVE 03/16/17 16:30 Spec Expiration Date 03/19/2017232903/16/17 16:30 Microbiology 03/16/17 16:30 Blood Blood Culture - Preliminary No Growth after 120 hours 03/18/17 02:25 Sputum Gram Stain - Final 03/18/17 02:25 Sputum Sputum Culture - Final Methicillin resist S. aureus 03/16/17 19:00 Urine,Voided Urine Culture - Final Assessment and Plan (1) Septic shock Narrative/Plan: 66-year-old male with multiple medical troubles with left toe amputations and right below-knee amputation due to his severe peripheral vascular disease. Now presents with a significant bout of sepsis from the abdomen. Has evidence of pneumoperitoneum. Perforated gastric ulcer was noted. As well as gangrenous cholecystitis. He's had the surgical incision is noted. Remains profoundly ill with septic shock. For sepsis from the abdominal source in the condition of the perforation and gangrenous cholecystitis continue with antifungal therapy with fluconazole. Piperacillin tazobactam is being dosed per his renal failure. Has a history of MRSA as well as VRE infection. Daptomycin was being utilized. However MRSA is now found in the pulmonary secretions. This will be changed to vancomycin and that no VRE has now been isolated from his abdominal cultures. Concerns related to his acute renal failure. Will be monitored closely. Cultures are in process. Supportive care continues. Status: Acute (2) Gastric perforation Status: Acute (3) Cholecystitis Status: Acute
[2017-03-22 00:15] LABS: Glucose,Whole Blood 378 mg/dL (75-99)
[2017-03-22] MEDS: HEPARIN SODIUM,PORCINE 5,000 UNIT/ML 1 ML VIAL SQ SCH ×3 (00:56→15:51)
[2017-03-22] MEDS: FAT EMULSION 20% 250 ML in EMPTY BAG 1 BAG IV SCH (00:57)
[2017-03-22] MEDS: INSULIN LISPRO (humaLOG) 300 UNIT/3 ML VIAL SQ SCH (01:06)
[2017-03-22] MEDS: 1: MVI, ADULT NO.4 WITH VIT K 10 ML, TRACE (CONC-1ML/DOSE) 1 ML, PARENTERAL ELECTROLYTES IV SCH ×15 (01:16→22:40)
[2017-03-22] MEDS: IPRATROPIUM-ALBUTEROL 3 ML NEB INHALATION SCH ×6 (03:18→23:42)
[2017-03-22] MEDS: HYDROmorphone 1 MG/ML 1 ML SYRINGE IVP PRN ×4 (04:04→17:37)
[2017-03-22 04:19] LABS: Glucose,Whole Blood 449 mg/dL (75-99)
[2017-03-22] MEDS ORDERED: INSULIN REGULAR 100 UNIT/ML VIAL IV ONE (04:41)
[2017-03-22 05:32] LABS: ABG Base Excess -12.3 mmol/L; ABG HCO3 13 mmol/L (21-25); ABG PCO2 31 mmHg (35-45); ABG PH 7.26 (7.35-7.45); ABG PO2 134 mmHg (83-108); ABG TCO2 14 mmol/L (19-24)
[2017-03-22 05:50] LABS: Glucose,Whole Blood 460 mg/dL (75-99)
[2017-03-22 06:14] LABS: Calcium 7.6 mg/dL (8.4-10.2); Magnesium 2.2 mg/dL (1.6-2.3); Phosphorous 4.2 mg/dL (2.5-4.5); Potassium 4.4 mmol/L (3.5-5.1)
[2017-03-22 06:21] LABS: Ionized Calcium 5.3 mg/dL (4.5-5.3)
[2017-03-22] MEDS ORDERED: INSULIN REGULAR BOLUS (FROM DRIP BAG) IV PRN (06:29)
[2017-03-22] MEDS: INSULIN REGULAR 100 UNIT in SODIUM CHLORIDE 0.9% 100 ML IV SCH ×3 (07:00→21:21)
--- NOTE | 2017-03-22 07:14 | PN ---
The patient is seen for follow-up for acute kidney injury and severe metabolic acidosis. He currently remains on the vent. The patient has had good urine output. He is maintained on a bicarb drip. Levophed is down to about 0.5. The patients sedation has been decreased and he seems to be following commands according to nursing staff. On examination today, blood pressure is 130/50. Heart rate is 98 per minute. He is afebrile. Examination of the heart S1, S2. Examination of the lungs bilateral breath sounds are heard. Abdomen is soft. Distended. Nontender. Examination of the lower extremities shows bilateral extremities with edema. LION TAMER exam could not be performed. Labs shows sodium 147, potassium 3.8, chloride 124, CO2 11, BUN 91, serum creatinine 4.7. Hemoglobin 8.5. ASSESSMENT: 1. Acute kidney injury, acute tubular necrosis, currently nonoliguric secondary to hypotension, hypoperfusion and sepsis. No nephrotoxic agents on board. 2. Perforated peptic ulcer status post exploratory laparotomy and open cholecystectomy on March 16. 3. Hypotension secondary to sepsis slowly improving. 4. Mild hypernatremia. We will need to adjust the TPN and decrease sodium and TPN. 5. Metabolic acidosis secondary to gastrointestinal fluid loss and renal failure. Maintained on IV bicarb. We will increase the bicarb drip. 6. Sputum culture positive for MRSA. 7. Chronic kidney disease, Stage IIIB/IV with previous creatinine about 2.4 in July 2016. Etiology is likely diabetic nephropathy. PLAN: Continue bicarb, decrease sodium and TPN, increase bicarb or switch to sodium acetate if the shortage of bicarb persists. MTDD
--- NOTE | 2017-03-22 07:41 | XR ---
EXAMINATION TYPE: XR chest 1V DATE OF EXAM: 03/22/2017 COMPARISON: 03/21/2017 HISTORY: 66-year-old male intubated TECHNIQUE: Single frontal view of the chest is obtained. FINDINGS: ET tube and NG tube are satisfactory. Right IJ CVC tip in the right atrium. Heart is normal size. Small pleural effusions persist. Prominent adjacent opacities especially in the retrocardiac region. Artery vasculature within normal limits. IMPRESSION: Overall stable with small pleural effusions and prominent adjacent atelectasis and/or consolidation e specially in the retrocardiac region.
[2017-03-22] MEDS: PANTOPRAZOLE 40 MG/10 ML VIAL IV SCH ×2 (08:07→22:30)
[2017-03-22] MEDS: FUROSEMIDE 10 MG/ML 4 ML VIAL IV SCH ×2 (08:07→22:31)
[2017-03-22] MEDS: CHLORHEXIDINE GLUCONATE 15 ML CUP MUCOUS MEM SCH ×2 (08:07→22:30)
[2017-03-22 08:15] LABS: Glucose,Whole Blood 496 mg/dL (75-99)
[2017-03-22] MEDS: FLUCONAZOLE IN NACL,ISO-OSM 100 MG in SALINE 1 50ML.BAG IVPB SCH (08:20)
[2017-03-22] MEDS: PIPERACILLIN-TAZOBACTAM 3.375 GM in DEXTROSE/WATER 1 50ML.BAG IVPB SCH ×2 (08:20→20:38)
[2017-03-22 09:24] LABS: Glucose,Whole Blood 407 mg/dL (75-99)
[2017-03-22] MEDS ORDERED: SODIUM BICARB 8.4% 50 ML SYR (1 MEQ/ML) IV STA (09:44)
[2017-03-22 09:53] LABS: Glucose,Whole Blood 430 mg/dL (75-99)
--- NOTE | 2017-03-22 10:10 | P.PN ---
Subjective Patient is seen in follow-up for acute renal failure and metabolic acidosis. Renal function is relatively stable with creatinine at 4.53 today. Patient is maintained on TPN. He still on the ventilator. Patient presented with a perforated peptic ulcer and underwent exploratory laparotomy and open cholecystectomy this admission. Been started on Lasix 40 mg IV daily. He is nonoliguric. Patient does have underlying chronic kidney disease with creatinine in the range of 2.4-2.5 in July 2016. Vital signs are stable. General: The patient is on the ventilator. HEENT: Head exam is unremarkable. Neck is without jugular venous distension. LUNGS: Scattered rhonchi. Breath sounds decreased. HEART: Rate and Rhythm are regular. First and second heart sounds normal. No murmurs, rubs or gallops. ABDOMEN: Bowel sounds present. EXTREMITITES: No clubbing, cyanosis, or edema. Objective - Vital Signs Vital signs: Vital Signs Temp 97.8 F 03/22/17 08:00 Pulse 85 03/22/17 09:00 Resp 17 03/22/17 09:00 BP 160/76 03/22/17 08:00 Pulse Ox 100 03/22/17 09:00 Intake & Output 03/21/17 03/22/17 03/22/17 18:59 06:59 18:59 Intake Total 1927.453 0973.0 325.657 Output Total 1755 2215 235 Balance 131.688 -623.0 90.657 Weight 98.8 kg 94.4 kg Intake: IV 785.0 140.0 130 Dextrose 5% in Water 1, 425 000 ml @ 50 mls/hr IV . Q23H [facility] with Sod Bicarb Syr 8.4% (1 Meq/ml) 150 ml Rx#:[id number] Fluconazole in NaCl Iso- 50 50 Osm 100mg in Saline 1 50ml.bag @50mls/hr IVPB Daily Mvi, Adult No.4 with Vit 250 K 10 ml Trace (Conc-1Ml/ Dose) 1 ml Parenteral Electrolytes 20 ml In Amino Acid 5%-D15w 1,000 ml @ 30 mls/hr IV .Q24H [facility] Rx#:[id number] Piperacillin-Tazobactam 3 50.0 50.0 50 .375 gm In Dextrose/Water 1 50ml.bag @ 12.5 mls/hr IVPB Q12HR [facility] Rx#: [id number] Sodium Chloride 0.9% 1, 10 90 30 000 ml @ 40 mls/hr IV . Q24H [facility] Rx#:[id number] Intake, IV Titration 1101.688 121 32.657 Amount Fat Emulsion 20% 250 ml 126 21 In Empty Bag 1 bag @ 21 mls/hr IV DAILY@1400 [facility] Rx#:[id number] Insulin Regular 100 unit 32.657 In Sodium Chloride 0.9% 100 ml @ Per Protocol IV .Q0M [facility] Rx#:[id number] Mvi, Adult No.4 with Vit 600 100 K 10 ml Trace (Conc-1Ml/ Dose) 1 ml Parenteral Electrolytes 20 ml Potassium Acetate 10 meq In Amino Acid 5%-D15w 1, 000 ml @ 100 mls/hr IV . BY DURATION [facility] Rx#: [id number] Norepinephrin 16 mg-0.9% 0.688 Ns Pmx 16 mg In 250 ml @ Titrate IV .Q0M [facility] Rx#: [id number] Vancomycin 1,500 mg In 375 Sodium Chloride 0.9% 250 ml @ 125 mls/hr IVPB ONCE [facility] Rx#:[id number] TPN/PPN 1100 100 Mvi, Adult No.4 with Vit 1100 100 K 10 ml Trace (Conc-1Ml/ Dose) 1 ml Parenteral Electrolytes 20 ml In Amino Acid 5%-D15w 1,000 ml @ 30 mls/hr IV .Q24H [facility] Rx#:[id number] Lipid 231 63 Mvi, Adult No.4 with Vit 231 63 K 10 ml Trace (Conc-1Ml/ Dose) 1 ml Parenteral Electrolytes 20 ml In Amino Acid 5%-D15w 1,000 ml @ 30 mls/hr IV .Q24H [facility] Rx#:[id number] Output: Gastric Drainage 100 Drainage 5 10 Right Lower Abdomen 5 10 Right Upper Abdomen 0 Urine 1355 1860 225 Stool 0 Emesis 400 250 Other: Voiding Method Indwelling Catheter Indwelling Catheter Indwelling Catheter ABP, PAP, CO, CI - Last Documented Arterial Blood Pressure 106/40 - Labs CBC & Chem 7: 03/21/17 04:15 03/22/17 Unknown Labs: Abnormal Lab Results - Last 24 Hours (Table) 03/21/17 03/21/17 03/21/17 Range/Units 12:12 13:25 16:09 ABG pH 7.32 L (7.35-7.45) ABG pCO2 24 L (35-45) mmHg ABG pO2 155 H (83-108) mmHg ABG HCO3 12 L (21-25) mmol/L ABG Total CO2 13 L (19-24) mmol/L ABG O2 Saturation 99.3 H (94-97) % Chloride (98-107) mmol/L Carbon Dioxide (22-30) mmol/L BUN (9-20) mg/dL Creatinine (0.66-1.25) mg/dL Glucose (74-99) mg/dL POC Glucose (mg/dL) 185 H 312 H (75-99) mg/dL Calcium (8.4-10.2) mg/dL Albumin (3.5-5.0) g/dL 03/21/17 03/21/17 03/22/17 Range/Units 20:14 20:57 00:14 ABG pH (7.35-7.45) ABG pCO2 (35-45) mmHg ABG pO2 (83-108) mmHg ABG HCO3 (21-25) mmol/L ABG Total CO2 (19-24) mmol/L ABG O2 Saturation (94-97) % Chloride (98-107) mmol/L Carbon Dioxide (22-30) mmol/L BUN (9-20) mg/dL Creatinine (0.66-1.25) mg/dL Glucose (74-99) mg/dL POC Glucose (mg/dL) 348 H 360 H 378 H (75-99) mg/dL Calcium (8.4-10.2) mg/dL Albumin (3.5-5.0) g/dL 03/22/17 03/22/17 03/22/17 Range/Units 04:17 05:10 05:45 ABG pH 7.26 L (7.35-7.45) ABG pCO2 31 L (35-45) mmHg ABG pO2 134 H (83-108) mmHg ABG HCO3 13 L (21-25) mmol/L ABG Total CO2 14 L (19-24) mmol/L ABG O2 Saturation 99.0 H (94-97) % Chloride (98-107) mmol/L Carbon Dioxide (22-30) mmol/L BUN (9-20) mg/dL Creatinine (0.66-1.25) mg/dL Glucose (74-99) mg/dL POC Glucose (mg/dL) 449 H 460 H (75-99) mg/dL Calcium (8.4-10.2) mg/dL Albumin (3.5-5.0) g/dL 03/22/17 03/22/17 03/22/17 Range/Units 08:14 09:21 09:51 ABG pH (7.35-7.45) ABG pCO2 (35-45) mmHg ABG pO2 (83-108) mmHg ABG HCO3 (21-25) mmol/L ABG Total CO2 (19-24) mmol/L ABG O2 Saturation (94-97) % Chloride (98-107) mmol/L Carbon Dioxide (22-30) mmol/L BUN (9-20) mg/dL Creatinine (0.66-1.25) mg/dL Glucose (74-99) mg/dL POC Glucose (mg/dL) 496 H 407 H 430 H (75-99) mg/dL Calcium (8.4-10.2) mg/dL Albumin (3.5-5.0) g/dL 03/22/17 Range/Units Unknown ABG pH (7.35-7.45) ABG pCO2 (35-45) mmHg ABG pO2 (83-108) mmHg ABG HCO3 (21-25) mmol/L ABG Total CO2 (19-24) mmol/L ABG O2 Saturation (94-97) % Chloride 121 H* (98-107) mmol/L Carbon Dioxide 14 L (22-30) mmol/L BUN 97 H* (9-20) mg/dL Creatinine 4.53 H (0.66-1.25) mg/dL Glucose 522 H* (74-99) mg/dL POC Glucose (mg/dL) (75-99) mg/dL Calcium 7.6 L (8.4-10.2) mg/dL Albumin 1.8 L (3.5-5.0) g/dL Microbiology - Last 24 Hours (Table) 03/16/17 16:30 Blood Culture - Preliminary Blood No Growth after 120 hours Assessment and Plan Plan: Assessment: #1. Nonoliguric acute kidney injury secondary to ischemic ATN secondary to hypotension and sepsis. Renal function stable with creatinine at 4.53. #2. Perforated peptic ulcer status post exploratory laparotomy and open cholecystectomy on March 16. #3. Metabolic acidosis with respiratory compensation secondary to acute kidney injury and IV fluids. #4. Hypotension secondary to sepsis. Off vasopressors. #5. Postoperative anemia. #6. Sepsis secondary to perforated ulcer and gangrenous cholecystitis. Sputum culture positive for MRSA. #7. 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 Etiology is likely diabetic kidney disease. Plan: 2 A of sodium bicarbonate IV push. Start oral sodium bicarbonate once able to tolerate oral medications. Maintain TPN. Antibiotics per infectious disease recommendations. Avoid nephrotoxic agents and hypotensive episodes. Monitor vancomycin levels. No urgent need for renal replacement therapy at this time.
--- NOTE | 2017-03-22 10:57 | P.PN ---
Subjective Principal diagnosis: Perforated peptic ulcer The patient remains in the ICU on the ventilator. He is status post exposure laparotomy and repair of perforated ulcer. Objective - Vital Signs Vital signs: Vital Signs Temp 97.8 F 03/22/17 08:00 Pulse 85 03/22/17 09:00 Resp 17 03/22/17 09:00 BP 160/76 03/22/17 08:00 Pulse Ox 100 03/22/17 09:00 Intake & Output 03/21/17 03/22/17 03/22/17 18:59 06:59 18:59 Intake Total 6141.951 8040.0 325.657 Output Total 1755 2215 235 Balance 131.688 -623.0 90.657 Weight 98.8 kg 94.4 kg Intake: IV 785.0 140.0 130 Dextrose 5% in Water 1, 425 000 ml @ 50 mls/hr IV . Q23H [facility] with Sod Bicarb Syr 8.4% (1 Meq/ml) 150 ml Rx#:[id number] Fluconazole in NaCl Iso- 50 50 Osm 100mg in Saline 1 50ml.bag @50mls/hr IVPB Daily Mvi, Adult No.4 with Vit 250 K 10 ml Trace (Conc-1Ml/ Dose) 1 ml Parenteral Electrolytes 20 ml In Amino Acid 5%-D15w 1,000 ml @ 30 mls/hr IV .Q24H [facility] Rx#:[id number] Piperacillin-Tazobactam 3 50.0 50.0 50 .375 gm In Dextrose/Water 1 50ml.bag @ 12.5 mls/hr IVPB Q12HR [facility] Rx#: [id number] Sodium Chloride 0.9% 1, 10 90 30 000 ml @ 40 mls/hr IV . Q24H [facility] Rx#:[id number] Intake, IV Titration 1101.688 121 32.657 Amount Fat Emulsion 20% 250 ml 126 21 In Empty Bag 1 bag @ 21 mls/hr IV DAILY@1400 [facility] Rx#:[id number] Insulin Regular 100 unit 32.657 In Sodium Chloride 0.9% 100 ml @ Per Protocol IV .Q0M [facility] Rx#:[id number] Mvi, Adult No.4 with Vit 600 100 K 10 ml Trace (Conc-1Ml/ Dose) 1 ml Parenteral Electrolytes 20 ml Potassium Acetate 10 meq In Amino Acid 5%-D15w 1, 000 ml @ 100 mls/hr IV . BY DURATION [facility] Rx#: [id number] Norepinephrin 16 mg-0.9% 0.688 Ns Pmx 16 mg In 250 ml @ Titrate IV .Q0M [facility] Rx#: [id number] Vancomycin 1,500 mg In 375 Sodium Chloride 0.9% 250 ml @ 125 mls/hr IVPB ONCE ONE Rx#:[id number] TPN/PPN 1100 100 Mvi, Adult No.4 with Vit 1100 100 K 10 ml Trace (Conc-1Ml/ Dose) 1 ml Parenteral Electrolytes 20 ml In Amino Acid 5%-D15w 1,000 ml @ 30 mls/hr IV .Q24H [facility] Rx#:[id number] Lipid 231 63 Mvi, Adult No.4 with Vit 231 63 K 10 ml Trace (Conc-1Ml/ Dose) 1 ml Parenteral Electrolytes 20 ml In Amino Acid 5%-D15w 1,000 ml @ 30 mls/hr IV .Q24H [facility] Rx#:[id number] Output: Gastric Drainage 100 Drainage 5 10 Right Lower Abdomen 5 10 Right Upper Abdomen 0 Urine 1355 1860 225 Stool 0 Emesis 400 250 Other: Voiding Method Indwelling Catheter Indwelling Catheter Indwelling Catheter ABP, PAP, CO, CI - Last Documented Arterial Blood Pressure 106/40 - Gastrointestinal Gastrointestinal Comment(s): Abdomen soft. There is no significant distention. Incision site is clean dry and intact. His minimal serous fluid in the LOUISA drain. - Labs CBC & Chem 7: 03/21/17 04:15 03/22/17 Unknown Labs: Abnormal Lab Results - Last 24 Hours (Table) 03/21/17 03/21/17 03/21/17 Range/Units 12:12 13:25 16:09 ABG pH 7.32 L (7.35-7.45) ABG pCO2 24 L (35-45) mmHg ABG pO2 155 H (83-108) mmHg ABG HCO3 12 L (21-25) mmol/L ABG Total CO2 13 L (19-24) mmol/L ABG O2 Saturation 99.3 H (94-97) % Chloride (98-107) mmol/L Carbon Dioxide (22-30) mmol/L BUN (9-20) mg/dL Creatinine (0.66-1.25) mg/dL Glucose (74-99) mg/dL POC Glucose (mg/dL) 185 H 312 H (75-99) mg/dL Calcium (8.4-10.2) mg/dL Albumin (3.5-5.0) g/dL 03/21/17 03/21/17 03/22/17 Range/Units 20:14 20:57 00:14 ABG pH (7.35-7.45) ABG pCO2 (35-45) mmHg ABG pO2 (83-108) mmHg ABG HCO3 (21-25) mmol/L ABG Total CO2 (19-24) mmol/L ABG O2 Saturation (94-97) % Chloride (98-107) mmol/L Carbon Dioxide (22-30) mmol/L BUN (9-20) mg/dL Creatinine (0.66-1.25) mg/dL Glucose (74-99) mg/dL POC Glucose (mg/dL) 348 H 360 H 378 H (75-99) mg/dL Calcium (8.4-10.2) mg/dL Albumin (3.5-5.0) g/dL 03/22/17 03/22/17 03/22/17 Range/Units 04:17 05:10 05:45 ABG pH 7.26 L (7.35-7.45) ABG pCO2 31 L (35-45) mmHg ABG pO2 134 H (83-108) mmHg ABG HCO3 13 L (21-25) mmol/L ABG Total CO2 14 L (19-24) mmol/L ABG O2 Saturation 99.0 H (94-97) % Chloride (98-107) mmol/L Carbon Dioxide (22-30) mmol/L BUN (9-20) mg/dL Creatinine (0.66-1.25) mg/dL Glucose (74-99) mg/dL POC Glucose (mg/dL) 449 H 460 H (75-99) mg/dL Calcium (8.4-10.2) mg/dL Albumin (3.5-5.0) g/dL 03/22/17 03/22/17 03/22/17 Range/Units 08:14 09:21 09:51 ABG pH (7.35-7.45) ABG pCO2 (35-45) mmHg ABG pO2 (83-108) mmHg ABG HCO3 (21-25) mmol/L ABG Total CO2 (19-24) mmol/L ABG O2 Saturation (94-97) % Chloride (98-107) mmol/L Carbon Dioxide (22-30) mmol/L BUN (9-20) mg/dL Creatinine (0.66-1.25) mg/dL Glucose (74-99) mg/dL POC Glucose (mg/dL) 496 H 407 H 430 H (75-99) mg/dL Calcium (8.4-10.2) mg/dL Albumin (3.5-5.0) g/dL 03/22/17 Range/Units Unknown ABG pH (7.35-7.45) ABG pCO2 (35-45) mmHg ABG pO2 (83-108) mmHg ABG HCO3 (21-25) mmol/L ABG Total CO2 (19-24) mmol/L ABG O2 Saturation (94-97) % Chloride 121 H* (98-107) mmol/L Carbon Dioxide 14 L (22-30) mmol/L BUN 97 H* (9-20) mg/dL Creatinine 4.53 H (0.66-1.25) mg/dL Glucose 522 H* (74-99) mg/dL POC Glucose (mg/dL) (75-99) mg/dL Calcium 7.6 L (8.4-10.2) mg/dL Albumin 1.8 L (3.5-5.0) g/dL Microbiology - Last 24 Hours (Table) 03/16/17 16:30 Blood Culture - Preliminary Blood No Growth after 120 hours Assessment and Plan Plan: Status post repair of perforated peptic ulcer. Patient will remain on the ventilator. Dr. Lopez we'll address his pulmonary status. His overall condition is poor.
[2017-03-22 10:58] LABS: Glucose,Whole Blood 410 mg/dL (75-99)
[2017-03-22 11:48] LABS: Glucose,Whole Blood 393 mg/dL (75-99)
[2017-03-22 12:19] LABS: ABG Base Excess -11.1 mmol/L; ABG HCO3 13 mmol/L (21-25); ABG PCO2 25 mmHg (35-45); ABG PH 7.35 (7.35-7.45); ABG PO2 165 mmHg (83-108); ABG TCO2 14 mmol/L (19-24)
[2017-03-22 13:49] LABS: Glucose,Whole Blood 331 mg/dL (75-99)
--- NOTE | 2017-03-22 14:19 | P.PN ---
Subjective A 66-year-old male patient who came into the intensive care unit after undergoing expiratory laparotomy and repair of a perforated peptic ulcer with a modified Don patch and open cholecystectomy. Surgery was done last night and the patient was brought into the intensive care unit intubated on a mechanical ventilator. According to the reported history the patient was having 3-4 days history of a vague abdominal pain. This being gradually got worse. The patient was also having constipation. He had some nausea without vomiting. Appetite was diminished. No bright red blood per rectum. The pain was mainly over the central abdomen. No history of any peptic ulcer disease or diverticular disease. The x-ray of the abdomen in the emergency department showed pneumoperitoneum and the CAT scan confirmed the presence of a large volume of free air. The gallbladder was also thickened. The majority of the air was in the upper abdomen. Intraoperatively, the patient was found to have a perforated peptic ulcer and a gangrenous gallbladder. The patient is currently in the intensive care unit. The patient has received a total of 7 L of IV fluids. He has chronic renal failure and had developed acute kidney injury on top of chronic renal insufficiency and currently is oliguric producing only 5-10 mL an hour of urine output. The patient is intubated on a mechanical ventilator. The patient on assist control mode at the rate of 10, tidal volume 450, FiO2 of 40% and a PEEP of 5. His blood. From this morning showed a pH of 7.31 with a pCO2 of 27 and pO2 of 198 and based on that the FiO2 was weaned down. Chest x-ray shows no pneumothorax or pneumoperitoneum. ET tube is in a good location. Hemodynamically, the patient was doing poorly. He was in septic shock. He was tachycardic with a heart rate in the 1:30 range. This improved with fluid resuscitation his current heart rate is sinus at 110. He also was on higher doses of pressors and norepinephrine infusion was running at 25 mics and currently is down to 50 mics. He is covered with a combination of IV Zosyn, IV Diflucan and IV Flagyl. He is afebrile for now. Is sedated with Diprivan. He has a below-knee amputation on the right lower extremity and the feet on the left lower extremity shows marked diminished pulses at is obtainable by Doppler. Lactic acid level was 5.4 at time of admission is currently down to 2.7. He has a right IJ triple-lumen catheter. He has a right upper extremity radial art line. He also has a LOUISA drain in his right lower quadrant area. On 03/18/2017 I'm seeing this patient in the follow-up. The patient remains intubated on a mechanical ventilator. He remains an assist-control mode of ventilation at a tidal volume 450, rate of 24, FiO2 of 40% and a PEEP of 5. His blood gases from this morning showed a pH of 7.26 with a pCO2 of 30 and pO2 of 155. Chest x-ray from this morning shows small bilateral pleural effusions, ET tube is in a good location, NG tube is in a good location and there is no acute pulmonary infiltrates or consolidations. Hemodynamically, the patient is still pressor dependent at 15 mics. Overnight he had to be as high as 20 mics and then he got weaned again down to 15 g of norepinephrine infusion. Urine output is gradually improving. Over the past 12 hours he produced approximately 50 mL of urine output. The patient is still having intermittent renal function and the creatinine still elevated at 4.8 which is comparable to yesterday. Rest of the electrodes are within normal. The patient is still acidotic with a bicarb level of 13. He received a total of 3 L of normal saline and 2 A of 12.5 g of albumin. He is still on a combination of Zosyn, Flagyl and Diflucan. All of the cultures of been negative. He remains nothing by mouth. Surgical wound site is clean and intact. LOUISA drain is draining approximately 50 mL of serosanguineous material. On 03/19/2017 the patient remains intubated on a mechanical ventilator. He is still respiratory failure. He is still in shock. He remains assist-control mode of ventilation with essentially the same vent settings. He is still requiring pressors and levo fed is running somewhere between 8-10 mics. He is afebrile. Echocardiogram was done at the bedside and showed a preserved LV function without any signs of heart failure. Remains sedated on Diprivan. A sedation holiday will be given to him today and try to lower down agree off sedation if possible. Remains on broad-spectrum antibiotics. Surgical wound site is dry clean and intact. Continues to be an acute kidney injury on top of chronic renal failure. No major improvement in the renal function although the patient has become nonoliguric at this point. He is producing adequate amount of urine output. His been aggressively resuscitated IV fluids and colloids and he is in a positive fluid balance and he has demonstrated some edema both in the upper and lower extremities. He remains acidotic. A follow-up lactic acid level will be obtained. Remains nothing by mouth. No clearance from surgery for enteral feeding. No TPN initiated yet. The patient is seen again today 03/20/2017 in follow-up in the intensive care unit. He remains intubated on the mechanical ventilator and assist control mode with a rate of 24, tidal volume 450, FiO2 40% and a PEEP of 5. Morning blood gases reveal a P O2 170, pCO2 of 26 and a pH of 7.20. This was done on 40 % FiO2. He is currently off sedation. He is fluttering his eyelids open but not following any commands at this point. He remains on norepinephrine currently at 3 mcg/m. He is also on a 0.9 normal saline at 40 miles per hour. His chest x-ray does show overall stable findings, there is low lung volumes with small bilateral pleural effusions and basilar atelectasis. His sputum culture reveals methicillin-resistant Staphylococcus aureus. Blood culture reveals no growth to date. He remains on vancomycin and metronidazole. He did have 150 MLS returned from the gastric tube which remains to suction. He does remain acidotic with a bicarb of 9. Chloride is 123. Current BUN 83, creatinine 4.41. The patient is seen again today 03/21/2017 in follow-up in the intensive care unit. He remains intubated on mechanical ventilator at a rate of 24, tidal volume 450, FiO2 40% and a PEEP of 5. Morning blood gases reveal a pH of 7.30, pCO2 of 26, pO2 of 163. The patient does remain off sedation and does open his eyes and follows simple commands. He is quite weak. He is currently off pressors. His white count is improving currently 14.1. Hemoglobin stable at 8.5. Sodium 147, chloride 124, bicarb improved to 11. Creatinine remains high at 4.70. He had been initiated on a bicarbonate drip yesterday to improve his acidosis.. On 03/22/2017 the patient is being seen in follow-up. The patient was taken off sedation this morning and he was quite awake. Bit lethargic yet arousable. He was moving extremities and responding to simple commands. He was off pressors. Renal function remains impaired however the patient was producing adequate amount of urine output. An ongoing issue was his underlying metabolic acidosis. He was placed on a bicarb drip briefly however based on the absence of significant bicarbonate stock in the hospital day infusion was stopped. He is still on TPN for nutritional support. He is receiving acetate through the TPN. Currently is on a mechanical ventilator. His assist-control at the rate of 24, tidal volume 450, FiO2 of 40% and a PEEP of 5. Chest x-rays showing small bilateral pleural effusion and ET tube is in good location. The blood gases from earlier this morning showed a pH of 7.32 with a pCO2 of 24 and pO2 155. Based on this, check his weaning parameters and he had a rapid shallow breathing index of less than 50. I give the patient a spontaneous breathing trial for a total of 45 minutes and subsequent blood gases showed a pH of 7.35 with a pCO2 of 25 and pO2 of 165. I give the patient 2 A of bicarb for a bicarb level of 14. Subsequently I extubated the patient. Postextubation, he held himself well. No tachypnea. No respiratory distress. NG tube still in place. The patient's BUN is at 97 creatinine is at 4.5. He was given Lasix IV. He is in significant fluid overload including edema in the lower extremities in the scrotum. Antibiotic coverage includes a combination of Zosyn , daptomycin and Diflucan. Sputum at shown MRSA. 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 Upon subsequent follow-up, daptomycin was discontinued and the patient was switched to vancomycin. Objective - Vital Signs Vital signs: Vital Signs Temp 98.7 F 03/22/17 12:00 Pulse 97 03/22/17 12:00 Resp 22 03/22/17 12:00 BP 160/76 03/22/17 08:00 Pulse Ox 100 03/22/17 12:00 Intake & Output 03/21/17 03/22/17 03/22/17 18:59 06:59 18:59 Intake Total 1164.623 2880.0 383.937 Output Total 1755 2215 685 Balance 131.688 413.0 -301.063 Weight 98.8 kg 94.4 kg Intake: IV 785.0 140.0 160 Dextrose 5% in Water 1, 425 000 ml @ 50 mls/hr IV . Q23H [facility] with Sod Bicarb Syr 8.4% (1 Meq/ml) 150 ml Rx#:[id number] Fluconazole in NaCl Iso- 50 50 Osm 100mg in Saline 1 50ml.bag @50mls/hr IVPB Daily Mvi, Adult No.4 with Vit 250 K 10 ml Trace (Conc-1Ml/ Dose) 1 ml Parenteral Electrolytes 20 ml In Amino Acid 5%-D15w 1,000 ml @ 30 mls/hr IV .Q24H [facility] Rx#:[id number] Piperacillin-Tazobactam 3 50.0 50.0 50 .375 gm In Dextrose/Water 1 50ml.bag @ 12.5 mls/hr IVPB Q12HR [facility] Rx#: [id number] Sodium Chloride 0.9% 1, 10 90 60 000 ml @ 40 mls/hr IV . Q24H [facility] Rx#:[id number] Intake, IV Titration 7442.460 3659 60.937 Amount Fat Emulsion 20% 250 ml 126 21 In Empty Bag 1 bag @ 21 mls/hr IV DAILY@1400 [facility] Rx#:[id number] Insulin Regular 100 unit 60.937 In Sodium Chloride 0.9% 100 ml @ Per Protocol IV .Q0M [facility] Rx#:[id number] Mvi, Adult No.4 with Vit 600 1136 K 10 ml Trace (Conc-1Ml/ Dose) 1 ml Parenteral Electrolytes 20 ml Potassium Acetate 10 meq In Amino Acid 5%-D15w 1, 000 ml @ 100 mls/hr IV . BY DURATION [facility] Rx#: [id number] Norepinephrin 16 mg-0.9% 0.688 Ns Pmx 16 mg In 250 ml @ Titrate IV .Q0M [facility] Rx#: [id number] Vancomycin 1,500 mg In 375 Sodium Chloride 0.9% 250 ml @ 125 mls/hr IVPB [facility]CE [facility] Rx#:[id number] TPN/PPN 1100 100 Mvi, Adult No.4 with Vit 1100 100 K 10 ml Trace (Conc-1Ml/ Dose) 1 ml Parenteral Electrolytes 20 ml In Amino Acid 5%-D15w 1,000 ml @ 30 mls/hr IV .Q24H [facility] Rx#:[id number] Lipid 231 63 Mvi, Adult No.4 with Vit 231 63 K 10 ml Trace (Conc-1Ml/ Dose) 1 ml Parenteral Electrolytes 20 ml In Amino Acid 5%-D15w 1,000 ml @ 30 mls/hr IV .Q24H [facility] Rx#:[id number] Output: Gastric Drainage 100 Drainage 5 10 Right Lower Abdomen 5 10 Right Upper Abdomen 0 Urine 1355 1860 675 Stool 0 Emesis 400 250 Other: Voiding Method Indwelling Catheter Indwelling Catheter Indwelling Catheter ABP, PAP, CO, CI - Last Documented Arterial Blood Pressure 146/53 - Exam Patient is extubated. Awake. NG tube still in place. Head exam was generally normal. There was no scleral icterus or corneal arcus. Mucous membranes were moist.There was no scleral icterus or corneal arcus. Mucous membranes were moist. Neck is supple and the patient has a right IJ triple-lumen catheter. The patient also has an orogastric and NG tube in place.Lungs were clear to auscultation and percussion, and with normal diaphragmatic excursion. No wheezes or rales were noted. Cardiac exam revealed the PMI to be normally situated and sized. The rhythm was regular and no extrasystoles were noted during several minutes of auscultation. The first and second heart sounds were normal and physiologic splitting of the second heart sound was noted. There were no murmurs, rubs, clicks, or gallops. Abdomen is soft. Bowel sounds are absent. There is a midabdominal large skin wound which is dry clean and intact and the patient has a right lower quadrant LOUISA drain in place. No ascites. Extremities show below-knee amputation on the right, 4 of the toes are missing in the left foot with diminished pulses at the obtained by Doppler signal. Neurologically the patient is awake and following some simple commands. Still lethargic. - Labs CBC & Chem 7: 03/21/17 04:15 03/22/17 Unknown Labs: Abnormal Lab Results - Last 24 Hours (Table) 03/21/17 03/21/17 03/21/17 Range/Units 16:09 20:14 20:57 ABG pH (7.35-7.45) ABG pCO2 (35-45) mmHg ABG pO2 (83-108) mmHg ABG HCO3 (21-25) mmol/L ABG Total CO2 (19-24) mmol/L ABG O2 Saturation (94-97) % Chloride (98-107) mmol/L Carbon Dioxide (22-30) mmol/L BUN (9-20) mg/dL Creatinine (0.66-1.25) mg/dL Glucose (74-99) mg/dL POC Glucose (mg/dL) 312 H 348 H 360 H (75-99) mg/dL Calcium (8.4-10.2) mg/dL Albumin (3.5-5.0) g/dL 03/22/17 03/22/17 03/22/17 Range/Units 00:14 04:17 05:10 ABG pH 7.26 L (7.35-7.45) ABG pCO2 31 L (35-45) mmHg ABG pO2 134 H (83-108) mmHg ABG HCO3 13 L (21-25) mmol/L ABG Total CO2 14 L (19-24) mmol/L ABG O2 Saturation 99.0 H (94-97) % Chloride (98-107) mmol/L Carbon Dioxide (22-30) mmol/L BUN (9-20) mg/dL Creatinine (0.66-1.25) mg/dL Glucose (74-99) mg/dL POC Glucose (mg/dL) 378 H 449 H (75-99) mg/dL Calcium (8.4-10.2) mg/dL Albumin (3.5-5.0) g/dL 03/22/17 03/22/17 03/22/17 Range/Units 05:45 08:14 09:21 ABG pH (7.35-7.45) ABG pCO2 (35-45) mmHg ABG pO2 (83-108) mmHg ABG HCO3 (21-25) mmol/L ABG Total CO2 (19-24) mmol/L ABG O2 Saturation (94-97) % Chloride (98-107) mmol/L Carbon Dioxide (22-30) mmol/L BUN (9-20) mg/dL Creatinine (0.66-1.25) mg/dL Glucose (74-99) mg/dL POC Glucose (mg/dL) 460 H 496 H 407 H (75-99) mg/dL Calcium (8.4-10.2) mg/dL Albumin (3.5-5.0) g/dL 03/22/17 03/22/17 03/22/17 Range/Units 09:51 10:55 11:43 ABG pH (7.35-7.45) ABG pCO2 25 L (35-45) mmHg ABG pO2 165 H (83-108) mmHg ABG HCO3 13 L (21-25) mmol/L ABG Total CO2 14 L (19-24) mmol/L ABG O2 Saturation 99.0 H (94-97) % Chloride (98-107) mmol/L Carbon Dioxide (22-30) mmol/L BUN (9-20) mg/dL Creatinine (0.66-1.25) mg/dL Glucose (74-99) mg/dL POC Glucose (mg/dL) 430 H 410 H (75-99) mg/dL Calcium (8.4-10.2) mg/dL Albumin (3.5-5.0) g/dL 03/22/17 03/22/17 03/22/17 Range/Units 11:46 13:48 Unknown ABG pH (7.35-7.45) ABG pCO2 (35-45) mmHg ABG pO2 (83-108) mmHg ABG HCO3 (21-25) mmol/L ABG Total CO2 (19-24) mmol/L ABG O2 Saturation (94-97) % Chloride 121 H* (98-107) mmol/L Carbon Dioxide 14 L (22-30) mmol/L BUN 97 H* (9-20) mg/dL Creatinine 4.53 H (0.66-1.25) mg/dL Glucose 522 H* (74-99) mg/dL POC Glucose (mg/dL) 393 H 331 H (75-99) mg/dL Calcium 7.6 L (8.4-10.2) mg/dL Albumin 1.8 L (3.5-5.0) g/dL Microbiology - Last 24 Hours (Table) 03/16/17 16:30 Blood Culture - Preliminary Blood No Growth after 120 hours Assessment and Plan Plan: Assessment 1 acute abdomen status post extra laparotomy and repair of a perforated peptic ulcer a modified Don patch and open cholecystectomy. Patient is postop day # 5 . 2 shock likely septic in nature secondary to intra-abdominal sepsis complicated by perforated peptic ulcer and cholecystitis. Patient has been stabilized. The patient is currently off pressors. Antibiotic coverage including a combination of vancomycin, Zosyn and Diflucan. 3 hypotension secondary to above , recovered 4 acute respiratory failure, a complication of septic shock. Extubated today without any major difficulties. 5 acute kidney injury on top of chronic renal failure. The patient has stage II kidney disease at baseline due to diabetic nephropathy. Acute kidney injury related to hypotension/sepsis due to ATN. The patient remains in acute kidney injury. The patient is nonoliguric. There is an ongoing component of metabolic acidosis and this was treated with bicarb. 6 acute lactic acidosis, recovered 7 diabetes mellitus with poorly controlled blood sugar secondary to sepsis currently on insulin drip for blood sugar control. 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 Plan The patient was extubated. He'll be monitored very closely. One concern is the story failure respiratory fatigue special that he has an underlying metabolic acidosis. We'll given 2 A of sodium bicarb. We'll continue TPN for nutritional support. Continue same antibiotic coverage. Aspiration precautions. Keep TPN for nutritional support. Monitor electrolytes. Monitor renal function. Increase the Lasix to 40 because IV push every 12 hours as the patient has developed significant third spacing and scrotal edema. We'll continue to follow and make further recommendations based on his progress. General surgeries on the case. ID is on the case. This is a critically care evaluation that was done in more than 50 minutes. Time with Patient: Greater than 30
[2017-03-22 15:19] LABS: Glucose,Whole Blood 291 mg/dL (75-99)
--- NOTE | 2017-03-22 15:53 | P.PN ---
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 [facility] most recently under the care of Dr. Gordon and discharged in August 2016 after a dehiscence of the right below the knee wound healed. Patient presented to [facility] emergency center on March 16 with generalized weakness and abdominal pain for at least couple days up to 1 week with concerns for constipation and was taking laxatives with no improvement. Patient also had decreased appetite and pain was gradually worsening. There was nausea without vomiting. Chest x-ray showed pneumoperitoneum and left basilar atelectasis with no heart failure. Abdominal films also showed pneumoperitoneum. CAT scan of the abdomen and pelvis without contrast and was found have a large pneumoperitoneum, large ascites, large nonobstructive right renal calculi and possible gallbladder thickening with concern for gangrenous gallbladder. Patient was taken to the OR by Dr. Wiley for exploratory laparotomy with repair of perforated peptic ulcer and open cholecystectomy. Patient was then transferred to the intensive care unit where he remains intubated and on mechanical ventilation. Patient presented with severe sepsis and septic shock status post 7 1/2 liters of fluid currently on levo at 20 mics. He did not have a urine output for the day shift thus far. O2 needs have decreased however. He is currently on IV antimicrobials in the form of fluconazole, Flagyl and Zosyn. Blood cultures status received and urine culture status received. C. difficile toxin was negative. Patient is noted to have a stage II decubitus ulcer on his buttocks that was present on admission. There has improved. He has now been extubated. Weaned vasopressor therapy. Responded to fluids. Urine output is started to improve. Still has acute renal failure. Patient is awake and comfortable. Objective - Vital Signs Vital signs: Vital Signs Temp 98.7 F 03/22/17 12:00 Pulse 97 03/22/17 12:00 Resp 22 03/22/17 12:00 BP 160/76 03/22/17 08:00 Pulse Ox 100 03/22/17 12:00 Intake & Output 03/21/17 03/22/17 03/22/17 18:59 06:59 18:59 Intake Total 5756.402 6425.0 383.937 Output Total 1755 2215 685 Balance 131.688 413.0 -301.063 Weight 98.8 kg 94.4 kg Intake: IV 785.0 140.0 160 Dextrose 5% in Water 1, 425 000 ml @ 50 mls/hr IV . Q23H XENA with Sod Bicarb Syr 8.4% (1 Meq/ml) 150 ml Rx#:[id number] Fluconazole in NaCl Iso- 50 50 Osm 100mg in Saline 1 50ml.bag @50mls/hr IVPB Daily Mvi, Adult No.4 with Vit 250 K 10 ml Trace (Conc-1Ml/ Dose) 1 ml Parenteral Electrolytes 20 ml In Amino Acid 5%-D15w 1,000 ml @ 30 mls/hr IV .Q24H ONE Rx#:[id number] Piperacillin-Tazobactam 3 50.0 50.0 50 .375 gm In Dextrose/Water 1 50ml.bag @ 12.5 mls/hr IVPB Q12HR [facility] Rx#: [id number] Sodium Chloride 0.9% 1, 10 90 60 000 ml @ 40 mls/hr IV . Q24H [facility] Rx#:[id number] Intake, IV Titration 6009.308 2682 60.937 Amount Fat Emulsion 20% 250 ml 126 21 In Empty Bag 1 bag @ 21 mls/hr IV DAILY@1400 [facility] Rx#:[id number] Insulin Regular 100 unit 60.937 In Sodium Chloride 0.9% 100 ml @ Per Protocol IV .Q0M [facility] Rx#:[id number] Mvi, Adult No.4 with Vit 600 1136 K 10 ml Trace (Conc-1Ml/ Dose) 1 ml Parenteral Electrolytes 20 ml Potassium Acetate 10 meq In Amino Acid 5%-D15w 1, 000 ml @ 100 mls/hr IV . BY DURATION [facility] Rx#: [id number] Norepinephrin 16 mg-0.9% 0.688 Ns Pmx 16 mg In 250 ml @ Titrate IV .Q0M [facility] Rx#: [id number] Vancomycin 1,500 mg In 375 Sodium Chloride 0.9% 250 ml @ 125 mls/hr IVPB ONCE ONE Rx#:[id number] TPN/PPN 1100 100 Mvi, Adult No.4 with Vit 1100 100 K 10 ml Trace (Conc-1Ml/ Dose) 1 ml Parenteral Electrolytes 20 ml In Amino Acid 5%-D15w 1,000 ml @ 30 mls/hr IV .Q24H [facility] Rx#:[id number] Lipid 231 63 Mvi, Adult No.4 with Vit 231 63 K 10 ml Trace (Conc-1Ml/ Dose) 1 ml Parenteral Electrolytes 20 ml In Amino Acid 5%-D15w 1,000 ml @ 30 mls/hr IV .Q24H ONE Rx#:[id number] Output: Gastric Drainage 100 Drainage 5 10 Right Lower Abdomen 5 10 Right Upper Abdomen 0 Urine 1355 1860 675 Stool 0 Emesis 400 250 Other: Voiding Method Indwelling Catheter Indwelling Catheter Indwelling Catheter ABP, PAP, CO, CI - Last Documented Arterial Blood Pressure 146/53 - Exam Gen: This is an obese 66-year-old male. He is seen in the ICU, he has been extubated. Patient appears comfortable and in no acute distress. HEENT: Head is atraumatic, normocephalic. Oral ET and gastric tube in place. White coating noted on the tongue. Mucous membranes are slightly dry.. NECK: Supple. No JVD. No lymphadenopathy. Trachea midline. LUNGS: There is symmetrical air entry bilaterally. Coarse crackles are scattered the lung kraft. Subtly improved when he coughs. Scattered wheezes are also heard. HEART: Regular rate and rhythm. No murmur. Patient is tachycardic. ABDOMEN: Soft. Bowel sounds are not present. No masses. No tenderness. LOUISA drain to the right upper abdomen is draining serosanguineous fluid. Dressing to the right upper quadrant and midline are in place with no breakthrough drainage or bleeding. Castellanos catheter in place draining clear pinky urine. EXTREMITIES: No pedal edema to the left lower extremity. Patient has amputations of toes 2 through 5 on the left and a right below the knee amputation. All extremities are cool to the touch. No mottling noted. NEUROLOGICAL: Patient no longer sedated. Eyes are open. Seems comfortable. Denied pain. - Labs CBC & Chem 7: 03/21/17 04:15 03/22/17 Unknown Labs: Abnormal Lab Results - Last 24 Hours (Table) 03/21/17 03/21/17 03/21/17 Range/Units 16:09 20:14 20:57 ABG pH (7.35-7.45) ABG pCO2 (35-45) mmHg ABG pO2 (83-108) mmHg ABG HCO3 (21-25) mmol/L ABG Total CO2 (19-24) mmol/L ABG O2 Saturation (94-97) % Chloride (98-107) mmol/L Carbon Dioxide (22-30) mmol/L BUN (9-20) mg/dL Creatinine (0.66-1.25) mg/dL Glucose (74-99) mg/dL POC Glucose (mg/dL) 312 H 348 H 360 H (75-99) mg/dL Calcium (8.4-10.2) mg/dL Albumin (3.5-5.0) g/dL 03/22/17 03/22/17 03/22/17 Range/Units 00:14 04:17 05:10 ABG pH 7.26 L (7.35-7.45) ABG pCO2 31 L (35-45) mmHg ABG pO2 134 H (83-108) mmHg ABG HCO3 13 L (21-25) mmol/L ABG Total CO2 14 L (19-24) mmol/L ABG O2 Saturation 99.0 H (94-97) % Chloride (98-107) mmol/L Carbon Dioxide (22-30) mmol/L BUN (9-20) mg/dL Creatinine (0.66-1.25) mg/dL Glucose (74-99) mg/dL POC Glucose (mg/dL) 378 H 449 H (75-99) mg/dL Calcium (8.4-10.2) mg/dL Albumin (3.5-5.0) g/dL 03/22/17 03/22/17 03/22/17 Range/Units 05:45 08:14 09:21 ABG pH (7.35-7.45) ABG pCO2 (35-45) mmHg ABG pO2 (83-108) mmHg ABG HCO3 (21-25) mmol/L ABG Total CO2 (19-24) mmol/L ABG O2 Saturation (94-97) % Chloride (98-107) mmol/L Carbon Dioxide (22-30) mmol/L BUN (9-20) mg/dL Creatinine (0.66-1.25) mg/dL Glucose (74-99) mg/dL POC Glucose (mg/dL) 460 H 496 H 407 H (75-99) mg/dL Calcium (8.4-10.2) mg/dL Albumin (3.5-5.0) g/dL 03/22/17 03/22/17 03/22/17 Range/Units 09:51 10:55 11:43 ABG pH (7.35-7.45) ABG pCO2 25 L (35-45) mmHg ABG pO2 165 H (83-108) mmHg ABG HCO3 13 L (21-25) mmol/L ABG Total CO2 14 L (19-24) mmol/L ABG O2 Saturation 99.0 H (94-97) % Chloride (98-107) mmol/L Carbon Dioxide (22-30) mmol/L BUN (9-20) mg/dL Creatinine (0.66-1.25) mg/dL Glucose (74-99) mg/dL POC Glucose (mg/dL) 430 H 410 H (75-99) mg/dL Calcium (8.4-10.2) mg/dL Albumin (3.5-5.0) g/dL 03/22/17 03/22/17 03/22/17 Range/Units 11:46 13:48 15:17 ABG pH (7.35-7.45) ABG pCO2 (35-45) mmHg ABG pO2 (83-108) mmHg ABG HCO3 (21-25) mmol/L ABG Total CO2 (19-24) mmol/L ABG O2 Saturation (94-97) % Chloride (98-107) mmol/L Carbon Dioxide (22-30) mmol/L BUN (9-20) mg/dL Creatinine (0.66-1.25) mg/dL Glucose (74-99) mg/dL POC Glucose (mg/dL) 393 H 331 H 291 H (75-99) mg/dL Calcium (8.4-10.2) mg/dL Albumin (3.5-5.0) g/dL 03/22/17 Range/Units Unknown ABG pH (7.35-7.45) ABG pCO2 (35-45) mmHg ABG pO2 (83-108) mmHg ABG HCO3 (21-25) mmol/L ABG Total CO2 (19-24) mmol/L ABG O2 Saturation (94-97) % Chloride 121 H* (98-107) mmol/L Carbon Dioxide 14 L (22-30) mmol/L BUN 97 H* (9-20) mg/dL Creatinine 4.53 H (0.66-1.25) mg/dL Glucose 522 H* (74-99) mg/dL POC Glucose (mg/dL) (75-99) mg/dL Calcium 7.6 L (8.4-10.2) mg/dL Albumin 1.8 L (3.5-5.0) g/dL Microbiology - Last 24 Hours (Table) 03/16/17 16:30 Blood Culture - Preliminary Blood No Growth after 120 hours Laboratory Results WBC 14.1 k/uL (3.8-10.6) H 03/21/17 04:15 RBC 2.94 m/uL (4.30-5.90) L 03/21/17 04:15 Hgb 8.5 gm/dL (13.0-17.5) L 03/21/17 04:15 Hct 27.2 % (39.0-53.0) L 03/21/17 04:15 MCV 92.5 fL (80.0-100.0) 03/21/17 04:15 MCH 28.9 pg (25.0-35.0) 03/21/17 04:15 MCHC 31.2 g/dL (31.0-37.0) 03/21/17 04:15 RDW 15.7 % (11.5-15.5) H 03/21/17 04:15 Plt Count 106 k/uL (150-450) L 03/21/17 04:15 Neutrophils % 88 % 03/21/17 04:15 Neutrophils % (Manual) 61.6 % 03/17/17 04:20 Band Neutrophils % 15.2 % 03/17/17 04:20 Lymphocytes % 6 % 03/21/17 04:15 Lymphocytes % (Manual) 18.2 % 03/17/17 04:20 Monocytes % 3 % 03/21/17 04:15 Monocytes % (Manual) 5.1 % 03/17/17 04:20 Eosinophils % 1 % 03/21/17 04:15 Basophils % 0 % 03/21/17 04:15 Metamyelocytes % 4.0 % 03/16/17 22:50 Neutrophils # 12.3 k/uL (1.3-7.7) H 03/21/17 04:15 Neutrophils # (Manual) 7.1 k/uL (1.3-7.7) 03/17/17 04:20 Lymphocytes # 0.9 k/uL (1.0-4.8) L 03/21/17 04:15 Lymphocytes # (Manual) 1.7 k/uL (1.0-4.8) 03/17/17 04:20 Monocytes # 0.4 k/uL (0-1.0) 03/21/17 04:15 Monocytes # (Manual) 0.5 k/uL (0-1.0) 03/17/17 04:20 Eosinophils # 0.2 k/uL (0-0.7) 03/21/17 04:15 Basophils # 0.0 k/uL (0-0.2) 03/21/17 04:15 Nucleated RBCs 0 /100 WBC (0-0) 03/17/17 04:20 Manual Slide Review Performed 03/17/17 04:20 Toxic Granulation Present 03/16/17 16:30 RBC Morphology Normal 03/16/17 16:30 Hypochromasia Slight 03/20/17 04:45 PT 10.4 sec (9.0-12.0) 03/16/17 16:30 INR 1.0 (<1.2) 03/16/17 16:30 APTT 22.1 sec (22.0-30.0) 03/16/17 16:30 Sample Site [place] 03/22/17 11:43 ABG pH 7.35 (7.35-7.45) 03/22/17 11:43 ABG pCO2 25 mmHg (35-45) L 03/22/17 11:43 ABG pO2 165 mmHg (83-108) H 03/22/17 11:43 ABG HCO3 13 mmol/L (21-25) L 03/22/17 11:43 ABG Total CO2 14 mmol/L (19-24) L 03/22/17 11:43 ABG O2 Saturation 99.0 % (94-97) H 03/22/17 11:43 ABG Base Excess -11.1 mmol/L 03/22/17 11:43 ABG Hematocrit 29 % (34.0-46.0) L 03/16/17 21:12 ABG Lactic Acid 0.7 mmol/L (0.5-1.6) 03/20/17 04:45 VBG pH 7.25 (7.31-7.41) L 03/16/17 16:30 VBG pCO2 29 mmHg (37-51) L 03/16/17 16:30 VBG HCO3 12 mmol/L (24-28) L 03/16/17 16:30 FiO2 40 % 03/22/17 11:43 Sodium 145 mmol/L (137-145) 03/22/17 Unknown Potassium 4.4 mmol/L (3.5-5.1) 03/22/17 Unknown Chloride 121 mmol/L (98-107) H* 03/22/17 Unknown Carbon Dioxide 14 mmol/L (22-30) L 03/22/17 Unknown Anion Gap 10 mmol/L 03/22/17 Unknown BUN 97 mg/dL (9-20) H* 03/22/17 Unknown Creatinine 4.53 mg/dL (0.66-1.25) H 03/22/17 Unknown Est GFR (MDRD) Af Amer 16 (>60 ml/min/1.73 sqM) 03/22/17 Unknown Est GFR (MDRD) Non-Af 13 (>60 ml/min/1.73 sqM) 03/22/17 Unknown Glucose 522 mg/dL (74-99) H* 03/22/17 Unknown POC Glucose (mg/dL) 291 mg/dL (75-99) H 03/22/17 15:17 POC Glu Gut Puller ID Ulises Moran 03/22/17 15:[address] Glu mg/dL 174 mg/dL 03/17/17 04:20 Hemoglobin A1c 7.7 % (4.2-6.1) H 03/17/17 04:20 Lactic Ac Sepsis Rflx Y 03/16/17 16:57 Plasma Lactic Acid Mario 2.8 mmol/L (0.7-2.0) H* 03/16/17 22:42 Calcium 7.6 mg/dL (8.4-10.2) L 03/22/17 Unknown Ionized Calcium Valorie 5.3 mg/dL (4.5-5.3) 03/22/17 Unknown Phosphorus 4.2 mg/dL (2.5-4.5) 03/22/17 Unknown Magnesium 2.2 mg/dL (1.6-2.3) 03/22/17 Unknown Total Bilirubin 1.5 mg/dL (0.2-1.3) H 03/20/17 11:36 AST 19 U/L (17-59) 03/20/17 11:36 ALT 28 U/L (21-72) 03/20/17 11:36 Alkaline Phosphatase 60 U/L (38-126) 03/20/17 11:36 Total Creatine Kinase 216 U/L (55-170) H 03/16/17 16:30 CK-MB (CK-2) 2.9 ng/mL (0.0-2.4) H* 03/16/17 16:30 CK-MB (CK-2) Rel Index 1.3 03/16/17 16:30 Troponin I 0.590 ng/mL (0.000-0.034) H* 03/16/17 16:30 Total Protein 3.4 g/dL (6.3-8.2) L 03/20/17 11:36 Albumin 1.8 g/dL (3.5-5.0) L 03/22/17 Unknown Triglycerides 115 mg/dL (<150) 03/21/17 04:15 TSH 0.672 mIU/L (0.465-4.680) 03/16/17 16:30 Urine Color Dark Yellow 03/16/17 19:00 Urine Appearance Cloudy (Clear) 03/16/17 19:00 Urine pH 5.0 (5.0-8.0) 03/16/17 19:00 Ur Specific [place] 1.017 (1.001-1.035) 03/16/17 19:00 Urine Protein 1+ (Negative) H 03/16/17 19:00 Urine Glucose (UA) 1+ (Negative) H 03/16/17 19:00 Urine Ketones Negative (Negative) 03/16/17 19:00 Urine Blood Trace (Negative) H 03/16/17 19:00 Urine Nitrite Negative (Negative) 03/16/17 19:00 Urine Bilirubin Negative (Negative) 03/16/17 19:00 Urine Urobilinogen <2.0 mg/dL (<2.0) 03/16/17 19:00 Ur Leukocyte Esterase Negative (Negative) 03/16/17 19:00 Urine RBC 15 /hpf (0-5) H 03/16/17 19:00 Urine WBC 4 /hpf (0-5) 03/16/17 19:00 Amorphous Sediment Occasional /hpf (None) H 03/16/17 19:00 Hyaline Casts 110 /lpf (0-2) H 03/16/17 19:00 Random Vancomycin 18.0 ug/mL 03/22/17 Unknown C. difficile (EIA) Intrp Negative (Negative) 03/16/17 23:00 Blood Type A Positive 03/16/17 16:30 Blood Type Recheck No 03/16/17 16:30 Antibody Screen NEGATIVE 03/16/17 16:30 Spec Expiration Date 03/19/2017 - 232903/16/17 16:30 Microbiology 03/16/17 16:30 Blood Blood Culture - Preliminary No Growth after 120 hours 03/18/17 02:25 Sputum Gram Stain - Final 03/18/17 02:25 Sputum Sputum Culture - Final Methicillin resist S. aureus 03/16/17 19:00 Urine,Voided Urine Culture - Final Assessment and Plan (1) Septic shock Narrative/Plan: 66-year-old male with multiple medical troubles with left toe amputations and right below-knee amputation due to his severe peripheral vascular disease. Now presents with a significant bout of sepsis from the abdomen. Has evidence of pneumoperitoneum. Perforated gastric ulcer was noted. As well as gangrenous cholecystitis. He's had the surgical incision is noted. Remains profoundly ill with septic shock. For sepsis from the abdominal source in the condition of the perforation and gangrenous cholecystitis continue with antifungal therapy with fluconazole. Piperacillin tazobactam is being dosed per his renal failure. Has a history of MRSA as well as VRE infection. Daptomycin was being utilized. However MRSA is now found in the pulmonary secretions. This will be changed to vancomycin and that no VRE has now been isolated from his abdominal cultures. Concerns related to his acute renal failure. Will be monitored closely. Cultures are in process. Supportive care continues. Status: Acute (2) Gastric perforation Status: Acute (3) Cholecystitis Status: Acute
[2017-03-22 16:49] LABS: CHCM 29.4; HCT 30.3 % (39.0-53.0); HDW 3.14; HGB 9.3 gm/dL (13.0-17.5); Hypochromasia Marked; MCH 29.4 pg (25.0-35.0); MCHC 30.7 g/dL (31.0-37.0); Mean Platelet Volume 10.4; RBC 3.15 m/uL (4.30-5.90); RDW 15.6 % (11.5-15.5); WBC 16.5 k/uL (3.8-10.6)
[2017-03-22 17:29] LABS: Glucose,Whole Blood 237 mg/dL (75-99)
[2017-03-22] MEDS ORDERED: VANCOMYCIN 1,500 MG in SODIUM CHLORIDE 0.9% 250 ML IVPB ONE ×2 (18:00→20:00)
[2017-03-22 18:50] LABS: Glucose,Whole Blood 206 mg/dL (75-99)
[2017-03-22 20:17] LABS: Glucose,Whole Blood 181 mg/dL (75-99)
[2017-03-22 21:21] LABS: Glucose,Whole Blood 170 mg/dL (75-99)
[2017-03-22 22:22] LABS: Glucose,Whole Blood 159 mg/dL (75-99)
[2017-03-22 22:57] LABS: Glucose,Whole Blood 151 mg/dL (75-99)
[2017-03-23 00:09] LABS: Glucose,Whole Blood 157 mg/dL (75-99)
[2017-03-23] MEDS: HEPARIN SODIUM,PORCINE 5,000 UNIT/ML 1 ML VIAL SQ SCH ×4 (00:40→23:23)
[2017-03-23 01:22] LABS: Glucose,Whole Blood 149 mg/dL (75-99)
[2017-03-23 02:45] LABS: Glucose,Whole Blood 163 mg/dL (75-99)
[2017-03-23] MEDS: IPRATROPIUM-ALBUTEROL 3 ML NEB INHALATION SCH ×6 (03:38→23:47)
[2017-03-23 04:10] LABS: Glucose,Whole Blood 138 mg/dL (75-99)
[2017-03-23 05:18] LABS: Glucose,Whole Blood 136 mg/dL (75-99)
[2017-03-23 05:46] LABS: Basophils # (A) 0.1 k/uL (0-0.2); Basophils % (A) 0 %; CH 29.7; CHCM 32.5; Eosinophils # (A) 0.2 k/uL (0-0.7); Eosinophils % (A) 2 %; HCT 26.8 % (39.0-53.0); HGB 8.3 gm/dL (13.0-17.5); Luc # (Auto) 0.43; Luc % (Auto) 3; Lymphocytes # (A) 1.1 k/uL (1.0-4.8); Lymphocytes % (A) 8 %; MCH 28.5 pg (25.0-35.0); MCV 92.2 fL (80.0-100.0); Monocytes # (A) 0.6 k/uL (0-1.0); Monocytes % (A) 4 %; Neutrophils # (A) 10.7 k/uL (1.3-7.7); Neutrophils % (A) 82 %; RBC 2.91 m/uL (4.30-5.90); RDW 15.6 % (11.5-15.5); WBC (Perox) 13.84
[2017-03-23 05:58] LABS: Calcium 7.9 mg/dL (8.4-10.2); Magnesium 2.2 mg/dL (1.6-2.3); Phosphorous 2.8 mg/dL (2.5-4.5); Potassium 3.9 mmol/L (3.5-5.1)
[2017-03-23 06:21] LABS: Glucose,Whole Blood 174 mg/dL (75-99)
[2017-03-23] MEDS: 1: MVI, ADULT NO.4 WITH VIT K 10 ML, TRACE (CONC-1ML/DOSE) 1 ML, PARENTERAL ELECTROLYTES IV SCH ×15 (06:26→20:35)
[2017-03-23 07:25] LABS: Glucose,Whole Blood 180 mg/dL (75-99)
[2017-03-23] MEDS ORDERED: POTASSIUM CHLORIDE 10 MEQ in WATER FOR INJECTION 1 100ML.BAG IVPB STA (07:45)
[2017-03-23 08:04] LABS: Glucose,Whole Blood 186 mg/dL (75-99)
[2017-03-23] MEDS: FLUCONAZOLE IN NACL,ISO-OSM 100 MG in SALINE 1 50ML.BAG IVPB SCH (08:23)
[2017-03-23] MEDS: PIPERACILLIN-TAZOBACTAM 3.375 GM in DEXTROSE/WATER 1 50ML.BAG IVPB SCH ×2 (08:28→20:51)
[2017-03-23] MEDS: PANTOPRAZOLE 40 MG/10 ML VIAL IV SCH ×2 (08:30→20:37)
[2017-03-23] MEDS: FUROSEMIDE 10 MG/ML 4 ML VIAL IV SCH ×2 (08:31→20:36)
[2017-03-23] MEDS: CHLORHEXIDINE GLUCONATE 15 ML CUP MUCOUS MEM SCH (08:31)
[2017-03-23 09:14] LABS: Glucose,Whole Blood 165 mg/dL (75-99)
--- NOTE | 2017-03-23 09:40 | P.PN ---
Subjective A 66-year-old male patient who came into the intensive care unit after undergoing expiratory laparotomy and repair of a perforated peptic ulcer with a modified Don patch and open cholecystectomy. Surgery was done last night and the patient was brought into the intensive care unit intubated on a mechanical ventilator. According to the reported history the patient was having 3-4 days history of a vague abdominal pain. This being gradually got worse. The patient was also having constipation. He had some nausea without vomiting. Appetite was diminished. No bright red blood per rectum. The pain was mainly over the central abdomen. No history of any peptic ulcer disease or diverticular disease. The x-ray of the abdomen in the emergency department showed pneumoperitoneum and the CAT scan confirmed the presence of a large volume of free air. The gallbladder was also thickened. The majority of the air was in the upper abdomen. Intraoperatively, the patient was found to have a perforated peptic ulcer and a gangrenous gallbladder. The patient is currently in the intensive care unit. The patient has received a total of 7 L of IV fluids. He has chronic renal failure and had developed acute kidney injury on top of chronic renal insufficiency and currently is oliguric producing only 5-10 mL an hour of urine output. The patient is intubated on a mechanical ventilator. The patient on assist control mode at the rate of 10, tidal volume 450, FiO2 of 40% and a PEEP of 5. His blood. From this morning showed a pH of 7.31 with a pCO2 of 27 and pO2 of 198 and based on that the FiO2 was weaned down. Chest x-ray shows no pneumothorax or pneumoperitoneum. ET tube is in a good location. Hemodynamically, the patient was doing poorly. He was in septic shock. He was tachycardic with a heart rate in the 1:30 range. This improved with fluid resuscitation his current heart rate is sinus at 110. He also was on higher doses of pressors and norepinephrine infusion was running at 25 mics and currently is down to 50 mics. He is covered with a combination of IV Zosyn, IV Diflucan and IV Flagyl. He is afebrile for now. Is sedated with Diprivan. He has a below-knee amputation on the right lower extremity and the feet on the left lower extremity shows marked diminished pulses at is obtainable by Doppler. Lactic acid level was 5.4 at time of admission is currently down to 2.7. He has a right IJ triple-lumen catheter. He has a right upper extremity radial art line. He also has a LOUISA drain in his right lower quadrant area. On 03/18/2017 I'm seeing this patient in the follow-up. The patient remains intubated on a mechanical ventilator. He remains an assist-control mode of ventilation at a tidal volume 450, rate of 24, FiO2 of 40% and a PEEP of 5. His blood gases from this morning showed a pH of 7.26 with a pCO2 of 30 and pO2 of 155. Chest x-ray from this morning shows small bilateral pleural effusions, ET tube is in a good location, NG tube is in a good location and there is no acute pulmonary infiltrates or consolidations. Hemodynamically, the patient is still pressor dependent at 15 mics. Overnight he had to be as high as 20 mics and then he got weaned again down to 15 g of norepinephrine infusion. Urine output is gradually improving. Over the past 12 hours he produced approximately 50 mL of urine output. The patient is still having intermittent renal function and the creatinine still elevated at 4.8 which is comparable to yesterday. Rest of the electrodes are within normal. The patient is still acidotic with a bicarb level of 13. He received a total of 3 L of normal saline and 2 A of 12.5 g of albumin. He is still on a combination of Zosyn, Flagyl and Diflucan. All of the cultures of been negative. He remains nothing by mouth. Surgical wound site is clean and intact. LOUISA drain is draining approximately 50 mL of serosanguineous material. On 03/19/2017 the patient remains intubated on a mechanical ventilator. He is still respiratory failure. He is still in shock. He remains assist-control mode of ventilation with essentially the same vent settings. He is still requiring pressors and levo fed is running somewhere between 8-10 mics. He is afebrile. Echocardiogram was done at the bedside and showed a preserved LV function without any signs of heart failure. Remains sedated on Diprivan. A sedation holiday will be given to him today and try to lower down agree off sedation if possible. Remains on broad-spectrum antibiotics. Surgical wound site is dry clean and intact. Continues to be an acute kidney injury on top of chronic renal failure. No major improvement in the renal function although the patient has become nonoliguric at this point. He is producing adequate amount of urine output. His been aggressively resuscitated IV fluids and colloids and he is in a positive fluid balance and he has demonstrated some edema both in the upper and lower extremities. He remains acidotic. A follow-up lactic acid level will be obtained. Remains nothing by mouth. No clearance from surgery for enteral feeding. No TPN initiated yet. The patient is seen again today 03/20/2017 in follow-up in the intensive care unit. He remains intubated on the mechanical ventilator and assist control mode with a rate of 24, tidal volume 450, FiO2 40% and a PEEP of 5. Morning blood gases reveal a P O2 170, pCO2 of 26 and a pH of 7.20. This was done on 40 % FiO2. He is currently off sedation. He is fluttering his eyelids open but not following any commands at this point. He remains on norepinephrine currently at 3 mcg/m. He is also on a 0.9 normal saline at 40 miles per hour. His chest x-ray does show overall stable findings, there is low lung volumes with small bilateral pleural effusions and basilar atelectasis. His sputum culture reveals methicillin-resistant Staphylococcus aureus. Blood culture reveals no growth to date. He remains on vancomycin and metronidazole. He did have 150 MLS returned from the gastric tube which remains to suction. He does remain acidotic with a bicarb of 9. Chloride is 123. Current BUN 83, creatinine 4.41. The patient is seen again today 03/21/2017 in follow-up in the intensive care unit. He remains intubated on mechanical ventilator at a rate of 24, tidal volume 450, FiO2 40% and a PEEP of 5. Morning blood gases reveal a pH of 7.30, pCO2 of 26, pO2 of 163. The patient does remain off sedation and does open his eyes and follows simple commands. He is quite weak. He is currently off pressors. His white count is improving currently 14.1. Hemoglobin stable at 8.5. Sodium 147, chloride 124, bicarb improved to 11. Creatinine remains high at 4.70. He had been initiated on a bicarbonate drip yesterday to improve his acidosis.. On 03/22/2017 the patient is being seen in follow-up. The patient was taken off sedation this morning and he was quite awake. Bit lethargic yet arousable. He was moving extremities and responding to simple commands. He was off pressors. Renal function remains impaired however the patient was producing adequate amount of urine output. An ongoing issue was his underlying metabolic acidosis. He was placed on a bicarb drip briefly however based on the absence of significant bicarbonate stock in the hospital day infusion was stopped. He is still on TPN for nutritional support. He is receiving acetate through the TPN. Currently is on a mechanical ventilator. His assist-control at the rate of 24, tidal volume 450, FiO2 of 40% and a PEEP of 5. Chest x-rays showing small bilateral pleural effusion and ET tube is in good location. The blood gases from earlier this morning showed a pH of 7.32 with a pCO2 of 24 and pO2 155. Based on this, check his weaning parameters and he had a rapid shallow breathing index of less than 50. I give the patient a spontaneous breathing trial for a total of 45 minutes and subsequent blood gases showed a pH of 7.35 with a pCO2 of 25 and pO2 of 165. I give the patient 2 A of bicarb for a bicarb level of 14. Subsequently I extubated the patient. Postextubation, he held himself well. No tachypnea. No respiratory distress. NG tube still in place. The patient's BUN is at 97 creatinine is at 4.5. He was given Lasix IV. He is in significant fluid overload including edema in the lower extremities in the scrotum. Antibiotic coverage includes a combination of Zosyn , daptomycin and Diflucan. Sputum at shown MRSA. 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 Upon subsequent follow-up, daptomycin was discontinued and the patient was switched to vancomycin. On 03/23/2017 the patient is being seen in follow-up. The patient was successfully extubated yesterday and currently is on oxygen at room air. Pulse ox is above 90%. He has an MRSA in the sputum which is probably a colonizer. He is still on broad-spectrum antibiotics. The surgical wound site is clean. Bowel sounds are absent. He remains on TPN for nutritional support. He is bicarb level is gradually improving it's up to 16. He still has extensive edema both in upper and lower extremities and he also edema in his scrotum. I started him on Lasix 40 mg every 12 hours and he is producing approximately 3 L of urine output. Nevertheless, that fluid balance remains positive. He is on a combination of vancomycin, Zosyn and Diflucan for now. He is on TPN for nutritional support. He is on insulin drip at 8 units an hour. He is having some purulent drainage from the LOUISA drain and this was noted this morning. The material will be sent for culture. Afebrile. Surgeries on the case. Awake yet lethargic. Comfortable. Objective - Vital Signs Vital signs: Vital Signs Temp 98 F 03/23/17 04:00 Pulse 103 H 03/23/17 07:29 Resp 20 03/23/17 07:00 BP 134/62 03/23/17 07:00 Pulse Ox 99 03/23/17 07:16 Intake & Output 03/22/17 03/23/17 03/23/17 18:59 06:59 18:59 Intake Total 0130.269 1962.811 229.476 Output Total 1735 1680 Balance -108.480 8493.811 229.476 Weight 97.3 kg Intake: IV 230 1200.0 Fluconazole in NaCl Iso- 50 10 Osm 100mg in Saline 1 50ml.bag @50mls/hr IVPB Daily Piperacillin-Tazobactam 3 50 50.0 .375 gm In Dextrose/Water 1 50ml.bag @ 12.5 mls/hr IVPB Q12HR [facility] Rx#: [id number] Sodium Chloride 0.9% 1, 130 1140 000 ml @ 40 mls/hr IV . Q24H [facility] Rx#:[id number] Intake, IV Titration 4516.975 9664.811 229.476 Amount Insulin Regular 100 unit 101.000 96.811 24.476 In Sodium Chloride 0.9% 100 ml @ Per Protocol IV .Q0M [facility] Rx#:[id number] Mvi, Adult No.4 with Vit 1036 205 K 10 ml Trace (Conc-1Ml/ Dose) 1 ml Parenteral Electrolytes 20 ml Potassium Acetate 10 meq In Amino Acid 5%-D15w 1, 000 ml @ 100 mls/hr IV . BY DURATION [facility] Rx#: [id number] Parenteral Electrolytes 1025 20 ml Potassium Acetate 10 meq In Amino Acid 5%- D15w 1,000 ml @ 100 mls/ hr IV .BY DURATION [facility] Rx #:[id number] TPN/PPN 100 810 Fluconazole in NaCl Iso- 10 Osm 100mg in Saline 1 50ml.bag @50mls/hr IVPB Daily Mvi, Adult No.4 with Vit 100 K 10 ml Trace (Conc-1Ml/ Dose) 1 ml Parenteral Electrolytes 20 ml In Amino Acid 5%-D15w 1,000 ml @ 30 mls/hr IV .Q24H [facility] Rx#:[id number] Sodium Chloride 0.9% 1, 800 000 ml @ 40 mls/hr IV . Q24H [facility] Rx#:[id number] Lipid 63 0 Mvi, Adult No.4 with Vit 63 K 10 ml Trace (Conc-1Ml/ Dose) 1 ml Parenteral Electrolytes 20 ml In Amino Acid 5%-D15w 1,000 ml @ 30 mls/hr IV .Q24H [facility] Rx#:[id number] Sodium Chloride 0.9% 1, 0 000 ml @ 40 mls/hr IV . Q24H [facility] Rx#:[id number] Output: Drainage 10 0 Right Lower Abdomen 10 0 Urine 1725 1680 Stool 0 Other: Voiding Method Indwelling Catheter Indwelling Catheter ABP, PAP, CO, CI - Last Documented Arterial Blood Pressure 146/54 - Exam Patient is extubated. Awake. NG tube still in place. Head exam was generally normal. There was no scleral icterus or corneal arcus. Mucous membranes were moist.There was no scleral icterus or corneal arcus. Mucous membranes were moist. Neck is supple and the patient has a right IJ triple-lumen catheter. The patient also has an orogastric and NG tube in place.Lungs were clear to auscultation and percussion, and with normal diaphragmatic excursion. No wheezes or rales were noted. Cardiac exam revealed the PMI to be normally situated and sized. The rhythm was regular and no extrasystoles were noted during several minutes of auscultation. The first and second heart sounds were normal and physiologic splitting of the second heart sound was noted. There were no murmurs, rubs, clicks, or gallops. Abdomen is soft. Bowel sounds are absent. There is a midabdominal large skin wound which is dry clean and intact and the patient has a right lower quadrant LOUISA drain in place. There is some purulent material that was drained from the LOUISA drain in his right lower quadrant. No ascites. Extremities show below-knee amputation on the right, 4 of the toes are missing in the left foot with diminished pulses at the obtained by Doppler signal. Neurologically the patient is awake and following some simple commands. Still lethargic. Extensive scrotal edema - Labs CBC & Chem 7: 03/23/17 05:30 03/23/17 05:30 Labs: Abnormal Lab Results - Last 24 Hours (Table) 03/22/17 03/22/17 03/22/17 Range/Units 06:00 09:51 10:55 WBC 16.5 H (3.8-10.6) k/uL RBC 3.15 L (4.30-5.90) m/uL Hgb 9.3 L (13.0-17.5) gm/dL Hct 30.3 L (39.0-53.0) % MCHC 30.7 L (31.0-37.0) g/dL RDW 15.6 H (11.5-15.5) % Neutrophils # (1.3-7.7) k/uL ABG pCO2 (35-45) mmHg ABG pO2 (83-108) mmHg ABG HCO3 (21-25) mmol/L ABG Total CO2 (19-24) mmol/L ABG O2 Saturation (94-97) % Sodium (137-145) mmol/L Chloride (98-107) mmol/L Carbon Dioxide (22-30) mmol/L BUN (9-20) mg/dL Creatinine (0.66-1.25) mg/dL Glucose (74-99) mg/dL POC Glucose (mg/dL) 430 H 410 H (75-99) mg/dL Calcium (8.4-10.2) mg/dL Albumin (3.5-5.0) g/dL 03/22/17 03/22/17 03/22/17 Range/Units 11:43 11:46 13:48 WBC (3.8-10.6) k/uL RBC (4.30-5.90) m/uL Hgb (13.0-17.5) gm/dL Hct (39.0-53.0) % MCHC (31.0-37.0) g/dL RDW (11.5-15.5) % Neutrophils # (1.3-7.7) k/uL ABG pCO2 25 L (35-45) mmHg ABG pO2 165 H (83-108) mmHg ABG HCO3 13 L (21-25) mmol/L ABG Total CO2 14 L (19-24) mmol/L ABG O2 Saturation 99.0 H (94-97) % Sodium (137-145) mmol/L Chloride (98-107) mmol/L Carbon Dioxide (22-30) mmol/L BUN (9-20) mg/dL Creatinine (0.66-1.25) mg/dL Glucose (74-99) mg/dL POC Glucose (mg/dL) 393 H 331 H (75-99) mg/dL Calcium (8.4-10.2) mg/dL Albumin (3.5-5.0) g/dL 03/22/17 03/22/17 03/22/17 Range/Units 15:17 17:27 18:48 WBC (3.8-10.6) k/uL RBC (4.30-5.90) m/uL Hgb (13.0-17.5) gm/dL Hct (39.0-53.0) % MCHC (31.0-37.0) g/dL RDW (11.5-15.5) % Neutrophils # (1.3-7.7) k/uL ABG pCO2 (35-45) mmHg ABG pO2 (83-108) mmHg ABG HCO3 (21-25) mmol/L ABG Total CO2 (19-24) mmol/L ABG O2 Saturation (94-97) % Sodium (137-145) mmol/L Chloride (98-107) mmol/L Carbon Dioxide (22-30) mmol/L BUN (9-20) mg/dL Creatinine (0.66-1.25) mg/dL Glucose (74-99) mg/dL POC Glucose (mg/dL) 291 H 237 H 206 H (75-99) mg/dL Calcium (8.4-10.2) mg/dL Albumin (3.5-5.0) g/dL 03/22/17 03/22/17 03/22/17 Range/Units 20:14 21:19 22:20 WBC (3.8-10.6) k/uL RBC (4.30-5.90) m/uL Hgb (13.0-17.5) gm/dL Hct (39.0-53.0) % MCHC (31.0-37.0) g/dL RDW (11.5-15.5) % Neutrophils # (1.3-7.7) k/uL ABG pCO2 (35-45) mmHg ABG pO2 (83-108) mmHg ABG HCO3 (21-25) mmol/L ABG Total CO2 (19-24) mmol/L ABG O2 Saturation (94-97) % Sodium (137-145) mmol/L Chloride (98-107) mmol/L Carbon Dioxide (22-30) mmol/L BUN (9-20) mg/dL Creatinine (0.66-1.25) mg/dL Glucose (74-99) mg/dL POC Glucose (mg/dL) 181 H 170 H 159 H (75-99) mg/dL Calcium (8.4-10.2) mg/dL Albumin (3.5-5.0) g/dL 03/22/17 03/23/17 03/23/17 Range/Units 22:55 00:08 01:18 WBC (3.8-10.6) k/uL RBC (4.30-5.90) m/uL Hgb (13.0-17.5) gm/dL Hct (39.0-53.0) % MCHC (31.0-37.0) g/dL RDW (11.5-15.5) % Neutrophils # (1.3-7.7) k/uL ABG pCO2 (35-45) mmHg ABG pO2 (83-108) mmHg ABG HCO3 (21-25) mmol/L ABG Total CO2 (19-24) mmol/L ABG O2 Saturation (94-97) % Sodium (137-145) mmol/L Chloride (98-107) mmol/L Carbon Dioxide (22-30) mmol/L BUN (9-20) mg/dL Creatinine (0.66-1.25) mg/dL Glucose (74-99) mg/dL POC Glucose (mg/dL) 151 H 157 H 149 H (75-99) mg/dL Calcium (8.4-10.2) mg/dL Albumin (3.5-5.0) g/dL 03/23/17 03/23/17 03/23/17 Range/Units 02:43 04:09 05:17 WBC (3.8-10.6) k/uL RBC (4.30-5.90) m/uL Hgb (13.0-17.5) gm/dL Hct (39.0-53.0) % MCHC (31.0-37.0) g/dL RDW (11.5-15.5) % Neutrophils # (1.3-7.7) k/uL ABG pCO2 (35-45) mmHg ABG pO2 (83-108) mmHg ABG HCO3 (21-25) mmol/L ABG Total CO2 (19-24) mmol/L ABG O2 Saturation (94-97) % Sodium (137-145) mmol/L Chloride (98-107) mmol/L Carbon Dioxide (22-30) mmol/L BUN (9-20) mg/dL Creatinine (0.66-1.25) mg/dL Glucose (74-99) mg/dL POC Glucose (mg/dL) 163 H 138 H 136 H (75-99) mg/dL Calcium (8.4-10.2) mg/dL Albumin (3.5-5.0) g/dL 03/23/17 03/23/17 03/23/17 Range/Units 05:30 05:30 06:19 WBC 13.0 H (3.8-10.6) k/uL RBC 2.91 L (4.30-5.90) m/uL Hgb 8.3 L (13.0-17.5) gm/dL Hct 26.8 L (39.0-53.0) % MCHC (31.0-37.0) g/dL RDW 15.6 H (11.5-15.5) % Neutrophils # 10.7 H (1.3-7.7) k/uL ABG pCO2 (35-45) mmHg ABG pO2 (83-108) mmHg ABG HCO3 (21-25) mmol/L ABG Total CO2 (19-24) mmol/L ABG O2 Saturation (94-97) % Sodium 148 H (137-145) mmol/L Chloride 123 H* (98-107) mmol/L Carbon Dioxide 16 L (22-30) mmol/L BUN 104 H* (9-20) mg/dL Creatinine 4.20 H (0.66-1.25) mg/dL Glucose 161 H (74-99) mg/dL POC Glucose (mg/dL) 174 H (75-99) mg/dL Calcium 7.9 L (8.4-10.2) mg/dL Albumin 1.7 L (3.5-5.0) g/dL 03/23/17 03/23/17 03/23/17 Range/Units 07:24 08:03 09:12 WBC (3.8-10.6) k/uL RBC (4.30-5.90) m/uL Hgb (13.0-17.5) gm/dL Hct (39.0-53.0) % MCHC (31.0-37.0) g/dL RDW (11.5-15.5) % Neutrophils # (1.3-7.7) k/uL ABG pCO2 (35-45) mmHg ABG pO2 (83-108) mmHg ABG HCO3 (21-25) mmol/L ABG Total CO2 (19-24) mmol/L ABG O2 Saturation (94-97) % Sodium (137-145) mmol/L Chloride (98-107) mmol/L Carbon Dioxide (22-30) mmol/L BUN (9-20) mg/dL Creatinine (0.66-1.25) mg/dL Glucose (74-99) mg/dL POC Glucose (mg/dL) 180 H 186 H 165 H (75-99) mg/dL Calcium (8.4-10.2) mg/dL Albumin (3.5-5.0) g/dL Microbiology - Last 24 Hours (Table) 03/16/17 16:30 Blood Culture - Final Blood No Growth after 144 hours Assessment and Plan Plan: Assessment 1 acute abdomen status post extra laparotomy and repair of a perforated peptic ulcer a modified Don patch and open cholecystectomy. Patient is postop day # 6 . 2 shock secondary to septic in nature secondary to intra-abdominal sepsis complicated by perforated peptic ulcer and cholecystitis. Patient has been stabilized. The patient is currently off pressors. Antibiotic coverage including a combination of vancomycin, Zosyn and Diflucan. Nevertheless, on today's evaluation the patient is having some purulent drainage from the LOUISA drain. These will be sent for culture. Suspect formation of an intra- abdominal abscess. The CAT scan of the abdomen will be needed at a later stage. He is afebrile hemodynamically stable at this point. 3 hypotension secondary to above , recovered 4 acute respiratory failure, a complication of septic shock. Extubated without any major difficulties. 5 acute kidney injury on top of chronic renal failure. The patient has stage II kidney disease at baseline due to diabetic nephropathy. Acute kidney injury related to hypotension/sepsis due to ATN. The patient remains in acute kidney injury. The patient is nonoliguric. Renal function is gradually improving. This 6 acute lactic acidosis, recovered 7 diabetes mellitus with poorly controlled blood sugar secondary to sepsis currently on insulin drip for blood sugar control. 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 17 MRSA in the sputum, likely a colonizer. Plan There is concern of a intra-abdominal abscess formation. The LOUISA drain is draining some purulent material. This will be sent for cultures. The surgical wound is dry clean and intact. There is no fever. No signs of septicemia that' s active for now and the white cell count is down to 13. Will monitor output from the LOUISA drain. Continue TPN for nutritional support. Discussed possibility of cutting down the sodium and the chloride and the TPN. Continue IV Lasix. Monitor renal function. Keep same antibiotic coverage including a combination of Diflucan Zosyn and vancomycin. Provide the patient incentive spirometer. Try to put him in a sitting up position in bed. Condition remains critical. We'll continue to follow and make further recommendations. In my opinion he will need a CAT scan of the abdomen later stage probably sometime next week. He will also need a PICC line at a later stage. Critically care evaluation more than 30 minutes. Time with Patient: Greater than 30
[2017-03-23] MEDS: INSULIN LISPRO (humaLOG) 300 UNIT/3 ML VIAL SQ SCH ×2 (09:57→10:02)
[2017-03-23 10:00] LABS: Glucose,Whole Blood 154 mg/dL (75-99)
[2017-03-23] MEDS ORDERED: DEXTROSE 5% IN WATER 1,000 ML IV ONE (10:27)
[2017-03-23] MEDS ORDERED: MD COMMUNICATION TO PHARMACY 1 EACH MISC PO PRN (10:45)
--- NOTE | 2017-03-23 10:45 | P.PN ---
Subjective Patient is seen in follow-up for acute renal failure and metabolic acidosis. Renal function is a little improved with cr at 4.2 today. Patient is maintained on TPN. He was extubated 03/22. Patient presented with a perforated peptic ulcer and underwent exploratory laparotomy and open cholecystectomy this admission. Maintained on Lasix 40 mg IV twice daily. He is nonoliguric. Patient does have underlying chronic kidney disease with creatinine in the range of 2.4-2.5 in July 2016. Vital signs are stable. General: Now extubated. OGT noted. HEENT: Head exam is unremarkable. Neck is without jugular venous distension. LUNGS: Scattered rhonchi. Breath sounds decreased. HEART: Rate and Rhythm are regular. First and second heart sounds normal. No murmurs, rubs or gallops. ABDOMEN: Bowel sounds present. EXTREMITITES: 1 )edema. Left BKA noted. Objective - Vital Signs Vital signs: Vital Signs Temp 98.8 F 03/23/17 08:00 Pulse 95 03/23/17 10:00 Resp 21 03/23/17 10:00 BP 118/61 03/23/17 10:00 Pulse Ox 98 03/23/17 10:00 Intake & Output 03/22/17 03/23/17 03/23/17 18:59 06:59 18:59 Intake Total 5592.408 3910.811 422.901 Output Total 1735 1680 775 Balance -617.642 8988.811 -352.099 Weight 97.3 kg Intake: IV 230 1200.0 87.5 Fluconazole in NaCl Iso- 50 10 50 Osm 100mg in Saline 1 50ml.bag @50mls/hr IVPB Daily Piperacillin-Tazobactam 3 50 50.0 37.5 .375 gm In Dextrose/Water 1 50ml.bag @ 12.5 mls/hr IVPB Q12HR [facility] Rx#: [id number] Sodium Chloride 0.9% 1, 130 1140 000 ml @ 40 mls/hr IV . Q24H [facility] Rx#:[id number] Intake, IV Titration 5960.460 3164.811 335.401 Amount Insulin Regular 100 unit 101.000 96.811 30.401 In Sodium Chloride 0.9% 100 ml @ Per Protocol IV .Q0M [facility] Rx#:[id number] Mvi, Adult No.4 with Vit 1036 205 K 10 ml Trace (Conc-1Ml/ Dose) 1 ml Parenteral Electrolytes 20 ml Potassium Acetate 10 meq In Amino Acid 5%-D15w 1, 000 ml @ 100 mls/hr IV . BY DURATION [facility] Rx#: [id number] Parenteral Electrolytes 1025 20 ml Potassium Acetate 10 meq In Amino Acid 5%- D15w 1,000 ml @ 100 mls/ hr IV .BY DURATION [facility] Rx #:[id number] Potassium Chloride 10 meq 100 In Water For Injection 1 100ml.bag @ 100 mls/hr IVPB ONCE STA Rx#: [id number] TPN/PPN 100 810 Fluconazole in NaCl Iso- 10 Osm 100mg in Saline 1 50ml.bag @50mls/hr IVPB Daily Mvi, Adult No.4 with Vit 100 K 10 ml Trace (Conc-1Ml/ Dose) 1 ml Parenteral Electrolytes 20 ml In Amino Acid 5%-D15w 1,000 ml @ 30 mls/hr IV .Q24H [facility] Rx#:[id number] Sodium Chloride 0.9% 1, 800 000 ml @ 40 mls/hr IV . Q24H [facility] Rx#:[id number] Lipid 63 0 Mvi, Adult No.4 with Vit 63 K 10 ml Trace (Conc-1Ml/ Dose) 1 ml Parenteral Electrolytes 20 ml In Amino Acid 5%-D15w 1,000 ml @ 30 mls/hr IV .Q24H [facility] Rx#:[id number] Sodium Chloride 0.9% 1, 0 000 ml @ 40 mls/hr IV . Q24H [facility] Rx#:[id number] Output: Drainage 10 0 50 Right Lower Abdomen 10 0 50 Urine 1725 1680 725 Stool 0 Other: Voiding Method Indwelling Catheter Indwelling Catheter Indwelling Catheter ABP, PAP, CO, CI - Last Documented Arterial Blood Pressure 146/54 - Labs CBC & Chem 7: 03/23/17 05:30 03/23/17 05:30 Labs: Abnormal Lab Results - Last 24 Hours (Table) 03/22/17 03/22/17 03/22/17 Range/Units 06:00 10:55 11:43 WBC 16.5 H (3.8-10.6) k/uL RBC 3.15 L (4.30-5.90) m/uL Hgb 9.3 L (13.0-17.5) gm/dL Hct 30.3 L (39.0-53.0) % MCHC 30.7 L (31.0-37.0) g/dL RDW 15.6 H (11.5-15.5) % Neutrophils # (1.3-7.7) k/uL ABG pCO2 25 L (35-45) mmHg ABG pO2 165 H (83-108) mmHg ABG HCO3 13 L (21-25) mmol/L ABG Total CO2 14 L (19-24) mmol/L ABG O2 Saturation 99.0 H (94-97) % Sodium (137-145) mmol/L Chloride (98-107) mmol/L Carbon Dioxide (22-30) mmol/L BUN (9-20) mg/dL Creatinine (0.66-1.25) mg/dL Glucose (74-99) mg/dL POC Glucose (mg/dL) 410 H (75-99) mg/dL Calcium (8.4-10.2) mg/dL Albumin (3.5-5.0) g/dL 03/22/17 03/22/17 03/22/17 Range/Units 11:46 13:48 15:17 WBC (3.8-10.6) k/uL RBC (4.30-5.90) m/uL Hgb (13.0-17.5) gm/dL Hct (39.0-53.0) % MCHC (31.0-37.0) g/dL RDW (11.5-15.5) % Neutrophils # (1.3-7.7) k/uL ABG pCO2 (35-45) mmHg ABG pO2 (83-108) mmHg ABG HCO3 (21-25) mmol/L ABG Total CO2 (19-24) mmol/L ABG O2 Saturation (94-97) % Sodium (137-145) mmol/L Chloride (98-107) mmol/L Carbon Dioxide (22-30) mmol/L BUN (9-20) mg/dL Creatinine (0.66-1.25) mg/dL Glucose (74-99) mg/dL POC Glucose (mg/dL) 393 H 331 H 291 H (75-99) mg/dL Calcium (8.4-10.2) mg/dL Albumin (3.5-5.0) g/dL 03/22/17 03/22/17 03/22/17 Range/Units 17:27 18:48 20:14 WBC (3.8-10.6) k/uL RBC (4.30-5.90) m/uL Hgb (13.0-17.5) gm/dL Hct (39.0-53.0) % MCHC (31.0-37.0) g/dL RDW (11.5-15.5) % Neutrophils # (1.3-7.7) k/uL ABG pCO2 (35-45) mmHg ABG pO2 (83-108) mmHg ABG HCO3 (21-25) mmol/L ABG Total CO2 (19-24) mmol/L ABG O2 Saturation (94-97) % Sodium (137-145) mmol/L Chloride (98-107) mmol/L Carbon Dioxide (22-30) mmol/L BUN (9-20) mg/dL Creatinine (0.66-1.25) mg/dL Glucose (74-99) mg/dL POC Glucose (mg/dL) 237 H 206 H 181 H (75-99) mg/dL Calcium (8.4-10.2) mg/dL Albumin (3.5-5.0) g/dL 03/22/17 03/22/17 03/22/17 Range/Units 21:19 22:20 22:55 WBC (3.8-10.6) k/uL RBC (4.30-5.90) m/uL Hgb (13.0-17.5) gm/dL Hct (39.0-53.0) % MCHC (31.0-37.0) g/dL RDW (11.5-15.5) % Neutrophils # (1.3-7.7) k/uL ABG pCO2 (35-45) mmHg ABG pO2 (83-108) mmHg ABG HCO3 (21-25) mmol/L ABG Total CO2 (19-24) mmol/L ABG O2 Saturation (94-97) % Sodium (137-145) mmol/L Chloride (98-107) mmol/L Carbon Dioxide (22-30) mmol/L BUN (9-20) mg/dL Creatinine (0.66-1.25) mg/dL Glucose (74-99) mg/dL POC Glucose (mg/dL) 170 H 159 H 151 H (75-99) mg/dL Calcium (8.4-10.2) mg/dL Albumin (3.5-5.0) g/dL 03/23/17 03/23/17 03/23/17 Range/Units 00:08 01:18 02:43 WBC (3.8-10.6) k/uL RBC (4.30-5.90) m/uL Hgb (13.0-17.5) gm/dL Hct (39.0-53.0) % MCHC (31.0-37.0) g/dL RDW (11.5-15.5) % Neutrophils # (1.3-7.7) k/uL ABG pCO2 (35-45) mmHg ABG pO2 (83-108) mmHg ABG HCO3 (21-25) mmol/L ABG Total CO2 (19-24) mmol/L ABG O2 Saturation (94-97) % Sodium (137-145) mmol/L Chloride (98-107) mmol/L Carbon Dioxide (22-30) mmol/L BUN (9-20) mg/dL Creatinine (0.66-1.25) mg/dL Glucose (74-99) mg/dL POC Glucose (mg/dL) 157 H 149 H 163 H (75-99) mg/dL Calcium (8.4-10.2) mg/dL Albumin (3.5-5.0) g/dL 03/23/17 03/23/17 03/23/17 Range/Units 04:09 05:17 05:30 WBC (3.8-10.6) k/uL RBC (4.30-5.90) m/uL Hgb (13.0-17.5) gm/dL Hct (39.0-53.0) % MCHC (31.0-37.0) g/dL RDW (11.5-15.5) % Neutrophils # (1.3-7.7) k/uL ABG pCO2 (35-45) mmHg ABG pO2 (83-108) mmHg ABG HCO3 (21-25) mmol/L ABG Total CO2 (19-24) mmol/L ABG O2 Saturation (94-97) % Sodium 148 H (137-145) mmol/L Chloride 123 H* (98-107) mmol/L Carbon Dioxide 16 L (22-30) mmol/L BUN 104 H* (9-20) mg/dL Creatinine 4.20 H (0.66-1.25) mg/dL Glucose 161 H (74-99) mg/dL POC Glucose (mg/dL) 138 H 136 H (75-99) mg/dL Calcium 7.9 L (8.4-10.2) mg/dL Albumin 1.7 L (3.5-5.0) g/dL 03/23/17 03/23/17 03/23/17 Range/Units 05:30 06:19 07:24 WBC 13.0 H (3.8-10.6) k/uL RBC 2.91 L (4.30-5.90) m/uL Hgb 8.3 L (13.0-17.5) gm/dL Hct 26.8 L (39.0-53.0) % MCHC (31.0-37.0) g/dL RDW 15.6 H (11.5-15.5) % Neutrophils # 10.7 H (1.3-7.7) k/uL ABG pCO2 (35-45) mmHg ABG pO2 (83-108) mmHg ABG HCO3 (21-25) mmol/L ABG Total CO2 (19-24) mmol/L ABG O2 Saturation (94-97) % Sodium (137-145) mmol/L Chloride (98-107) mmol/L Carbon Dioxide (22-30) mmol/L BUN (9-20) mg/dL Creatinine (0.66-1.25) mg/dL Glucose (74-99) mg/dL POC Glucose (mg/dL) 174 H 180 H (75-99) mg/dL Calcium (8.4-10.2) mg/dL Albumin (3.5-5.0) g/dL 03/23/17 03/23/17 03/23/17 Range/Units 08:03 09:12 09:58 WBC (3.8-10.6) k/uL RBC (4.30-5.90) m/uL Hgb (13.0-17.5) gm/dL Hct (39.0-53.0) % MCHC (31.0-37.0) g/dL RDW (11.5-15.5) % Neutrophils # (1.3-7.7) k/uL ABG pCO2 (35-45) mmHg ABG pO2 (83-108) mmHg ABG HCO3 (21-25) mmol/L ABG Total CO2 (19-24) mmol/L ABG O2 Saturation (94-97) % Sodium (137-145) mmol/L Chloride (98-107) mmol/L Carbon Dioxide (22-30) mmol/L BUN (9-20) mg/dL Creatinine (0.66-1.25) mg/dL Glucose (74-99) mg/dL POC Glucose (mg/dL) 186 H 165 H 154 H (75-99) mg/dL Calcium (8.4-10.2) mg/dL Albumin (3.5-5.0) g/dL Microbiology - Last 24 Hours (Table) 03/16/17 16:30 Blood Culture - Final Blood No Growth after 144 hours Assessment and Plan Plan: Assessment: #1. Nonoliguric acute kidney injury secondary to ischemic ATN secondary to hypotension and sepsis. Renal function little improved. #2. Perforated peptic ulcer status post exploratory laparotomy and open cholecystectomy on March 16. #3. Metabolic acidosis with respiratory compensation secondary to acute kidney injury and IV fluids. #4. Hypotension secondary to sepsis. Off vasopressors. #5. Postoperative anemia. #6. Sepsis secondary to perforated ulcer and gangrenous cholecystitis. Sputum culture positive for MRSA. #7. 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 Etiology is likely diabetic kidney disease. #8. Hypernatremia secondary to diuresis and lack of oral water intake. Plan: Start D5W at 60 mL an hour. Start oral sodium bicarbonate once able to tolerate oral medications. Maintain TPN - to reduce sodium and chloride content. Patient also receiving potassium acetate. Antibiotics per infectious disease recommendations. Avoid nephrotoxic agents and hypotensive episodes. Monitor vancomycin levels. No urgent need for renal replacement therapy at this time.
[2017-03-23 11:08] LABS: Glucose,Whole Blood 154 mg/dL (75-99)
[2017-03-23] MEDS ORDERED: SODIUM BICARB 8.4% 50 ML SYR (1 MEQ/ML) IV STA (11:27)
--- NOTE | 2017-03-23 12:10 | P.PN ---
Progress Note - Text The patient got extubated this morning. He has some complaints of abdominal pain. On exam his vital signs appear stable. His abdomen is soft. His incision is clean dry and intact. There is some bilious fluid in the LOUISA drain. The bilious fluid is new. Status post repair of perforated peptic ulcer. Patient will be observed. His LOUISA output will be closely watched. Dr. Wiley will reevaluate him in the a.m.
[2017-03-23 12:29] LABS: Glucose,Whole Blood 157 mg/dL (75-99)
[2017-03-23] MEDS: INSULIN REGULAR 100 UNIT in SODIUM CHLORIDE 0.9% 100 ML IV SCH ×2 (12:29→15:07)
[2017-03-23 13:09] LABS: Glucose,Whole Blood 171 mg/dL (75-99)
[2017-03-23 13:56] LABS: Glucose,Whole Blood 188 mg/dL (75-99)
[2017-03-23 15:07] LABS: Glucose,Whole Blood 163 mg/dL (75-99)
[2017-03-23] MEDS: FAT EMULSION 20% 250 ML in EMPTY BAG 1 BAG IV SCH (15:11)
[2017-03-23 16:05] LABS: Glucose,Whole Blood 147 mg/dL (75-99)
[2017-03-23 16:59] LABS: Glucose,Whole Blood 152 mg/dL (75-99)
[2017-03-23 18:58] LABS: Glucose,Whole Blood 145 mg/dL (75-99)
[2017-03-23 19:52] LABS: Glucose,Whole Blood 128 mg/dL (75-99)
[2017-03-23] MEDS: HYDROmorphone 1 MG/ML 1 ML SYRINGE IVP PRN (21:09)
[2017-03-23 21:29] LABS: Glucose,Whole Blood 131 mg/dL (75-99)
[2017-03-23 22:18] LABS: Glucose,Whole Blood 188 mg/dL (75-99)
[2017-03-23] MEDS: POTASSIUM CHLORIDE 10 MEQ in WATER FOR INJECTION 1 100ML.BAG IVPB SCH ×2 (22:19→23:23)
[2017-03-23 23:10] LABS: Glucose,Whole Blood 201 mg/dL (75-99)
[2017-03-24] LABS: Glucose,Whole Blood 198 mg/dL (75-99)
[2017-03-24 01:33] LABS: Glucose,Whole Blood 200 mg/dL (75-99)
[2017-03-24 02:20] LABS: Glucose,Whole Blood 195 mg/dL (75-99)
[2017-03-24] MEDS: INSULIN REGULAR 100 UNIT in SODIUM CHLORIDE 0.9% 100 ML IV SCH ×2 (02:27→22:07)
[2017-03-24 02:56] LABS: Glucose,Whole Blood 195 mg/dL (75-99)
[2017-03-24 04:11] LABS: Glucose,Whole Blood 184 mg/dL (75-99)
[2017-03-24 05:04] LABS: Glucose,Whole Blood 177 mg/dL (75-99)
[2017-03-24 06:06] LABS: Anisocytosis Slight; Basophils # (A) 0.1 k/uL (0-0.2); Basophils % (A) 1 %; CH 29.8; CHCM 32.7; Eosinophils # (A) 0.3 k/uL (0-0.7); Eosinophils % (A) 2 %; HCT 27.5 % (39.0-53.0); HDW 3.12; HGB 8.5 gm/dL (13.0-17.5); Luc # (Auto) 0.37; Luc % (Auto) 3; Lymphocytes # (A) 1.2 k/uL (1.0-4.8); Lymphocytes % (A) 8 %; MCH 28.4 pg (25.0-35.0); MCHC 30.9 g/dL (31.0-37.0); MCV 91.9 fL (80.0-100.0); Mean Platelet Volume 10.1; Monocytes # (A) 0.6 k/uL (0-1.0); Monocytes % (A) 4 %; Neutrophils # (A) 12.5 k/uL (1.3-7.7); Neutrophils % (A) 83 %; RBC 2.99 m/uL (4.30-5.90); RDW 16.5 % (11.5-15.5); WBC (Perox) 15.71
[2017-03-24 06:15] LABS: Calcium 7.8 mg/dL (8.4-10.2); Phosphorous 1.7 mg/dL (2.5-4.5); Potassium 3.4 mmol/L (3.5-5.1)
[2017-03-24 06:46] LABS: Glucose,Whole Blood 142 mg/dL (75-99)
[2017-03-24] MEDS: MAGNESIUM SULFATE-D5W PMX 1 GM in DEXTROSE/WATER 1 100ML.BAG IVPB SCH ×2 (07:53→14:26)
[2017-03-24 08:00] LABS: Glucose,Whole Blood 88 mg/dL (75-99)
[2017-03-24] MEDS ORDERED: POTASSIUM CHLORIDE 20 MEQ in WATER FOR INJECTION 1 100ML.BAG IVPB ONE (08:00)
[2017-03-24] MEDS: PANTOPRAZOLE 40 MG/10 ML VIAL IV SCH ×2 (08:09→20:42)
[2017-03-24] MEDS: FUROSEMIDE 10 MG/ML 4 ML VIAL IV SCH ×2 (08:10→20:42)
[2017-03-24] MEDS: HEPARIN SODIUM,PORCINE 5,000 UNIT/ML 1 ML VIAL SQ SCH ×2 (08:10→17:01)
[2017-03-24] MEDS: 1: MVI, ADULT NO.4 WITH VIT K 10 ML, TRACE (CONC-1ML/DOSE) 1 ML, PARENTERAL ELECTROLYTES IV SCH ×5 (08:31)
[2017-03-24] MEDS: IPRATROPIUM-ALBUTEROL 3 ML NEB INHALATION SCH ×4 (08:41→20:18)
[2017-03-24] MEDS: SODIUM PHOSPHATE 10 MMOL in SODIUM CHLORIDE 0.9% 100 ML IVPB SCH ×2 (09:43→16:44)
[2017-03-24] MEDS ORDERED: WATER IVPB ONE ×2 (10:00)
[2017-03-24] MEDS ORDERED: DEXTROSE 5% IVPB ONE ×2 (10:00)
[2017-03-24] MEDS ORDERED: VANCOMYCIN IVPB ONE ×2 (10:00)
--- NOTE | 2017-03-24 10:01 | P.PN ---
Subjective Patient is seen in follow-up for acute renal failure and metabolic acidosis. Renal function is improved with creatinine at 3.71 today. Patient is maintained on TPN. He was extubated 03/22. Patient presented with a perforated peptic ulcer and underwent exploratory laparotomy and open cholecystectomy this admission. Maintained on Lasix 40 mg IV twice daily. He is nonoliguric. Patient does have underlying chronic kidney disease with creatinine in the range of 2.4-2.5 in July 2016. Vital signs are stable. General: Now extubated. OGT noted. HEENT: Head exam is unremarkable. Neck is without jugular venous distension. LUNGS: Scattered rhonchi. Breath sounds decreased. HEART: Rate and Rhythm are regular. First and second heart sounds normal. No murmurs, rubs or gallops. ABDOMEN: Bowel sounds present. EXTREMITITES: 1+ edema. Left BKA noted. Objective - Vital Signs Vital signs: Vital Signs Temp 97.6 F 03/24/17 08:00 Pulse 98 03/24/17 08:00 Resp 23 03/24/17 08:00 BP 136/70 03/24/17 08:00 Pulse Ox 99 03/24/17 08:00 Intake & Output 03/23/17 03/24/17 03/24/17 18:59 06:59 18:59 Intake Total 4001.592 3812.049 219.427 Output Total 3505 2840 145 Balance 496.592 972.049 74.427 Weight 93.7 kg 93.6 kg Intake: IV 1392.5 1330.0 60 Dextrose 5% in Water 1, 480 1080 60 000 ml @ 60 mls/hr IV . [id number] [facility] Rx#:[id number] Fluconazole in NaCl Iso- 50 Osm 100mg in Saline 1 50ml.bag @50mls/hr IVPB Daily Mvi, Adult No.4 with Vit 800 K 10 ml Trace (Conc-1Ml/ Dose) 1 ml Parenteral Electrolytes 20 ml Potassium Acetate 10 meq In Amino Acid 5%-D15w 1, 000 ml @ 100 mls/hr IV . BY DURATION [facility] Rx#: [id number] Piperacillin-Tazobactam 3 62.5 50.0 .375 gm In Dextrose/Water 1 50ml.bag @ 12.5 mls/hr IVPB Q12HR [facility] Rx#: [id number] Potassium Chloride 10 meq 200 In Water For Injection 1 100ml.bag @ 100 mls/hr IVPB ONCE STA Rx#: [id number] Sodium Chloride 0.9% 1, 0 000 ml @ 40 mls/hr IV . Q24H [facility] Rx#:[id number] Intake, IV Titration 2609.092 1141.049 159.427 Amount Dextrose 5% in Water 1, 60 000 ml @ 60 mls/hr IV . [id number] [facility] Rx#:[id number] Fat Emulsion 20% 250 ml 105 In Empty Bag 1 bag @ 21 mls/hr IV DAILY@1400 [facility] Rx#:[id number] Insulin Regular 100 unit 78.092 116.049 9.427 In Sodium Chloride 0.9% 100 ml @ Per Protocol IV .Q0M [facility] Rx#:[id number] Magnesium Sulfate-D5w Pmx 100 1 gm In Dextrose/Water 1 100ml.bag @ 100 mls/hr IVPB Q1H [facility] Rx#: [id number] Mvi, Adult No.4 with Vit 1241 K 10 ml Trace (Conc-1Ml/ Dose) 1 ml Parenteral Electrolytes 20 ml Potassium Acetate 10 meq In Amino Acid 5%-D15w 1, 000 ml @ 100 mls/hr IV . BY DURATION [facility] Rx#: [id number] Parenteral Electrolytes 1025 1025 20 ml Potassium Acetate 10 meq In Amino Acid 5%- D15w 1,000 ml @ 100 mls/ hr IV .BY DURATION [facility] Rx #:[id number] Potassium Chloride 10 meq 100 In Water For Injection 1 100ml.bag @ 100 mls/hr IVPB ONCE STA Rx#: [id number] Potassium Chloride 20 meq 50 In Water For Injection 1 100ml.bag @ 50 mls/hr IVPB ONCE ONE Rx#: [id number] TPN/PPN 1110 Fluconazole in NaCl Iso- 1010 Osm 100mg in Saline 1 50ml.bag @50mls/hr IVPB Daily Sodium Chloride 0.9% 1, 100 000 ml @ 40 mls/hr IV . Q24H [facility] Rx#:[id number] Lipid 210 Fluconazole in NaCl Iso- 210 Osm 100mg in Saline 1 50ml.bag @50mls/hr IVPB Daily Albumin 21 Sodium Chloride 0.9% 1, 21 000 ml @ 40 mls/hr IV . Q24H [facility] Rx#:[id number] Output: Gastric Drainage 200 Drainage 80 20 40 Right Lower Abdomen 80 20 40 Urine 3425 2620 105 Stool 0 0 Other: Voiding Method Indwelling Catheter Indwelling Catheter Indwelling Catheter ABP, PAP, CO, CI - Last Documented Arterial Blood Pressure 146/54 - Labs CBC & Chem 7: 03/24/17 05:50 03/24/17 05:50 Labs: Abnormal Lab Results - Last 24 Hours (Table) 03/23/17 03/23/17 03/23/17 Range/Units 09:58 11:05 12:28 WBC (3.8-10.6) k/uL RBC (4.30-5.90) m/uL Hgb (13.0-17.5) gm/dL Hct (39.0-53.0) % MCHC (31.0-37.0) g/dL RDW (11.5-15.5) % Neutrophils # (1.3-7.7) k/uL Potassium (3.5-5.1) mmol/L Chloride (98-107) mmol/L Carbon Dioxide (22-30) mmol/L BUN (9-20) mg/dL Creatinine (0.66-1.25) mg/dL Glucose (74-99) mg/dL POC Glucose (mg/dL) 154 H 154 H 157 H (75-99) mg/dL Calcium (8.4-10.2) mg/dL Phosphorus (2.5-4.5) mg/dL Albumin (3.5-5.0) g/dL 03/23/17 03/23/17 03/23/17 Range/Units 13:08 13:10 13:55 WBC (3.8-10.6) k/uL RBC (4.30-5.90) m/uL Hgb (13.0-17.5) gm/dL Hct (39.0-53.0) % MCHC (31.0-37.0) g/dL RDW (11.5-15.5) % Neutrophils # (1.3-7.7) k/uL Potassium 5.3 H (3.5-5.1) mmol/L Chloride (98-107) mmol/L Carbon Dioxide (22-30) mmol/L BUN (9-20) mg/dL Creatinine (0.66-1.25) mg/dL Glucose (74-99) mg/dL POC Glucose (mg/dL) 171 H 188 H (75-99) mg/dL Calcium (8.4-10.2) mg/dL Phosphorus (2.5-4.5) mg/dL Albumin (3.5-5.0) g/dL 03/23/17 03/23/17 03/23/17 Range/Units 15:06 16:04 16:58 WBC (3.8-10.6) k/uL RBC (4.30-5.90) m/uL Hgb (13.0-17.5) gm/dL Hct (39.0-53.0) % MCHC (31.0-37.0) g/dL RDW (11.5-15.5) % Neutrophils # (1.3-7.7) k/uL Potassium (3.5-5.1) mmol/L Chloride (98-107) mmol/L Carbon Dioxide (22-30) mmol/L BUN (9-20) mg/dL Creatinine (0.66-1.25) mg/dL Glucose (74-99) mg/dL POC Glucose (mg/dL) 163 H 147 H 152 H (75-99) mg/dL Calcium (8.4-10.2) mg/dL Phosphorus (2.5-4.5) mg/dL Albumin (3.5-5.0) g/dL 03/23/17 03/23/17 03/23/17 Range/Units 18:56 19:50 21:27 WBC (3.8-10.6) k/uL RBC (4.30-5.90) m/uL Hgb (13.0-17.5) gm/dL Hct (39.0-53.0) % MCHC (31.0-37.0) g/dL RDW (11.5-15.5) % Neutrophils # (1.3-7.7) k/uL Potassium (3.5-5.1) mmol/L Chloride (98-107) mmol/L Carbon Dioxide (22-30) mmol/L BUN (9-20) mg/dL Creatinine (0.66-1.25) mg/dL Glucose (74-99) mg/dL POC Glucose (mg/dL) 145 H 128 H 131 H (75-99) mg/dL Calcium (8.4-10.2) mg/dL Phosphorus (2.5-4.5) mg/dL Albumin (3.5-5.0) g/dL 03/23/17 03/23/17 03/23/17 Range/Units 22:16 23:08 23:59 WBC (3.8-10.6) k/uL RBC (4.30-5.90) m/uL Hgb (13.0-17.5) gm/dL Hct (39.0-53.0) % MCHC (31.0-37.0) g/dL RDW (11.5-15.5) % Neutrophils # (1.3-7.7) k/uL Potassium (3.5-5.1) mmol/L Chloride (98-107) mmol/L Carbon Dioxide (22-30) mmol/L BUN (9-20) mg/dL Creatinine (0.66-1.25) mg/dL Glucose (74-99) mg/dL POC Glucose (mg/dL) 188 H 201 H 198 H (75-99) mg/dL Calcium (8.4-10.2) mg/dL Phosphorus (2.5-4.5) mg/dL Albumin (3.5-5.0) g/dL 03/24/17 03/24/17 03/24/17 Range/Units 01:30 02:18 02:54 WBC (3.8-10.6) k/uL RBC (4.30-5.90) m/uL Hgb (13.0-17.5) gm/dL Hct (39.0-53.0) % MCHC (31.0-37.0) g/dL RDW (11.5-15.5) % Neutrophils # (1.3-7.7) k/uL Potassium (3.5-5.1) mmol/L Chloride (98-107) mmol/L Carbon Dioxide (22-30) mmol/L BUN (9-20) mg/dL Creatinine (0.66-1.25) mg/dL Glucose (74-99) mg/dL POC Glucose (mg/dL) 200 H 195 H 195 H (75-99) mg/dL Calcium (8.4-10.2) mg/dL Phosphorus (2.5-4.5) mg/dL Albumin (3.5-5.0) g/dL 03/24/17 03/24/17 03/24/17 Range/Units 04:09 05:02 05:50 WBC (3.8-10.6) k/uL RBC (4.30-5.90) m/uL Hgb (13.0-17.5) gm/dL Hct (39.0-53.0) % MCHC (31.0-37.0) g/dL RDW (11.5-15.5) % Neutrophils # (1.3-7.7) k/uL Potassium 3.4 L (3.5-5.1) mmol/L Chloride 117 H (98-107) mmol/L Carbon Dioxide 19 L (22-30) mmol/L BUN 105 H* (9-20) mg/dL Creatinine 3.71 H (0.66-1.25) mg/dL Glucose 142 H (74-99) mg/dL POC Glucose (mg/dL) 184 H 177 H (75-99) mg/dL Calcium 7.8 L (8.4-10.2) mg/dL Phosphorus 1.7 L (2.5-4.5) mg/dL Albumin 1.8 L (3.5-5.0) g/dL 03/24/17 03/24/17 Range/Units 05:50 06:44 WBC 15.0 H (3.8-10.6) k/uL RBC 2.99 L (4.30-5.90) m/uL Hgb 8.5 L (13.0-17.5) gm/dL Hct 27.5 L (39.0-53.0) % MCHC 30.9 L (31.0-37.0) g/dL RDW 16.5 H (11.5-15.5) % Neutrophils # 12.5 H (1.3-7.7) k/uL Potassium (3.5-5.1) mmol/L Chloride (98-107) mmol/L Carbon Dioxide (22-30) mmol/L BUN (9-20) mg/dL Creatinine (0.66-1.25) mg/dL Glucose (74-99) mg/dL POC Glucose (mg/dL) 142 H (75-99) mg/dL Calcium (8.4-10.2) mg/dL Phosphorus (2.5-4.5) mg/dL Albumin (3.5-5.0) g/dL Microbiology - Last 24 Hours (Table) 03/23/17 08:00 Gram Stain - Preliminary Peritoneal Fluid Body Fluid Culture - Preliminary Assessment and Plan Plan: Assessment: #1. Nonoliguric acute kidney injury secondary to ischemic ATN secondary to hypotension and sepsis. Renal function improving. #2. Perforated peptic ulcer status post exploratory laparotomy and open cholecystectomy on March 16. #3. Metabolic acidosis with respiratory compensation secondary to acute kidney injury and IV fluids. Improving. #4. Hypotension secondary to sepsis. Off vasopressors. #5. Postoperative anemia. #6. Sepsis secondary to perforated ulcer and gangrenous cholecystitis. Sputum culture positive for MRSA. #7. 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 Etiology is likely diabetic kidney disease. #8. Hypernatremia secondary to diuresis and lack of oral water intake. Improved. #9. Hypokalemia secondary to poor nutritional status and renal potassium wasting. Magnesium replete. Plan: Continue D5W at 60 mL an hour. Start oral sodium bicarbonate once able to tolerate oral medications. Maintain TPN - to reduce sodium and chloride content. Patient also receiving potassium acetate. Antibiotics per infectious disease recommendations. Avoid nephrotoxic agents and hypotensive episodes. Monitor vancomycin levels. Potassium being replaced. No urgent need for renal replacement therapy at this time.
[2017-03-24 10:08] LABS: Glucose,Whole Blood 142 mg/dL (75-99)
[2017-03-24] MEDS: PIPERACILLIN-TAZOBACTAM 3.375 GM in DEXTROSE/WATER 1 50ML.BAG IVPB SCH ×2 (10:18→20:43)
[2017-03-24] MEDS: FLUCONAZOLE IN NACL,ISO-OSM 100 MG in SALINE 1 50ML.BAG IVPB SCH (10:18)
[2017-03-24 11:15] LABS: Glucose,Whole Blood 185 mg/dL (75-99)
--- NOTE | 2017-03-24 12:13 | P.PN ---
Subjective Principal diagnosis: Acute abdominal sepsis and perforation of peptic ulcer. A 66-year-old male patient who came into the intensive care unit after undergoing expiratory laparotomy and repair of a perforated peptic ulcer with a modified Don patch and open cholecystectomy. Surgery was done last night and the patient was brought into the intensive care unit intubated on a mechanical ventilator. According to the reported history the patient was having 3-4 days history of a vague abdominal pain. This being gradually got worse. The patient was also having constipation. He had some nausea without vomiting. Appetite was diminished. No bright red blood per rectum. The pain was mainly over the central abdomen. No history of any peptic ulcer disease or diverticular disease. The x-ray of the abdomen in the emergency department showed pneumoperitoneum and the CAT scan confirmed the presence of a large volume of free air. The gallbladder was also thickened. The majority of the air was in the upper abdomen. Intraoperatively, the patient was found to have a perforated peptic ulcer and a gangrenous gallbladder. The patient is currently in the intensive care unit. The patient has received a total of 7 L of IV fluids. He has chronic renal failure and had developed acute kidney injury on top of chronic renal insufficiency and currently is oliguric producing only 5-10 mL an hour of urine output. The patient is intubated on a mechanical ventilator. The patient on assist control mode at the rate of 10, tidal volume 450, FiO2 of 40% and a PEEP of 5. His blood. From this morning showed a pH of 7.31 with a pCO2 of 27 and pO2 of 198 and based on that the FiO2 was weaned down. Chest x-ray shows no pneumothorax or pneumoperitoneum. ET tube is in a good location. Hemodynamically, the patient was doing poorly. He was in septic shock. He was tachycardic with a heart rate in the 1:30 range. This improved with fluid resuscitation his current heart rate is sinus at 110. He also was on higher doses of pressors and norepinephrine infusion was running at 25 mics and currently is down to 50 mics. He is covered with a combination of IV Zosyn, IV Diflucan and IV Flagyl. He is afebrile for now. Is sedated with Diprivan. He has a below-knee amputation on the right lower extremity and the feet on the left lower extremity shows marked diminished pulses at is obtainable by Doppler. Lactic acid level was 5.4 at time of admission is currently down to 2.7. He has a right IJ triple-lumen catheter. He has a right upper extremity radial art line. He also has a LOUISA drain in his right lower quadrant area. On 03/18/2017 I'm seeing this patient in the follow-up. The patient remains intubated on a mechanical ventilator. He remains an assist-control mode of ventilation at a tidal volume 450, rate of 24, FiO2 of 40% and a PEEP of 5. His blood gases from this morning showed a pH of 7.26 with a pCO2 of 30 and pO2 of 155. Chest x-ray from this morning shows small bilateral pleural effusions, ET tube is in a good location, NG tube is in a good location and there is no acute pulmonary infiltrates or consolidations. Hemodynamically, the patient is still pressor dependent at 15 mics. Overnight he had to be as high as 20 mics and then he got weaned again down to 15 g of norepinephrine infusion. Urine output is gradually improving. Over the past 12 hours he produced approximately 50 mL of urine output. The patient is still having intermittent renal function and the creatinine still elevated at 4.8 which is comparable to yesterday. Rest of the electrodes are within normal. The patient is still acidotic with a bicarb level of 13. He received a total of 3 L of normal saline and 2 A of 12.5 g of albumin. He is still on a combination of Zosyn, Flagyl and Diflucan. All of the cultures of been negative. He remains nothing by mouth. Surgical wound site is clean and intact. LOUISA drain is draining approximately 50 mL of serosanguineous material. On 03/19/2017 the patient remains intubated on a mechanical ventilator. He is still respiratory failure. He is still in shock. He remains assist-control mode of ventilation with essentially the same vent settings. He is still requiring pressors and levo fed is running somewhere between 8-10 mics. He is afebrile. Echocardiogram was done at the bedside and showed a preserved LV function without any signs of heart failure. Remains sedated on Diprivan. A sedation holiday will be given to him today and try to lower down agree off sedation if possible. Remains on broad-spectrum antibiotics. Surgical wound site is dry clean and intact. Continues to be an acute kidney injury on top of chronic renal failure. No major improvement in the renal function although the patient has become nonoliguric at this point. He is producing adequate amount of urine output. His been aggressively resuscitated IV fluids and colloids and he is in a positive fluid balance and he has demonstrated some edema both in the upper and lower extremities. He remains acidotic. A follow-up lactic acid level will be obtained. Remains nothing by mouth. No clearance from surgery for enteral feeding. No TPN initiated yet. The patient is seen again today 03/20/2017 in follow-up in the intensive care unit. He remains intubated on the mechanical ventilator and assist control mode with a rate of 24, tidal volume 450, FiO2 40% and a PEEP of 5. Morning blood gases reveal a P O2 170, pCO2 of 26 and a pH of 7.20. This was done on 40 % FiO2. He is currently off sedation. He is fluttering his eyelids open but not following any commands at this point. He remains on norepinephrine currently at 3 mcg/m. He is also on a 0.9 normal saline at 40 miles per hour. His chest x-ray does show overall stable findings, there is low lung volumes with small bilateral pleural effusions and basilar atelectasis. His sputum culture reveals methicillin-resistant Staphylococcus aureus. Blood culture reveals no growth to date. He remains on vancomycin and metronidazole. He did have 150 MLS returned from the gastric tube which remains to suction. He does remain acidotic with a bicarb of 9. Chloride is 123. Current BUN 83, creatinine 4.41. The patient is seen again today 03/21/2017 in follow-up in the intensive care unit. He remains intubated on mechanical ventilator at a rate of 24, tidal volume 450, FiO2 40% and a PEEP of 5. Morning blood gases reveal a pH of 7.30, pCO2 of 26, pO2 of 163. The patient does remain off sedation and does open his eyes and follows simple commands. He is quite weak. He is currently off pressors. His white count is improving currently 14.1. Hemoglobin stable at 8.5. Sodium 147, chloride 124, bicarb improved to 11. Creatinine remains high at 4.70. He had been initiated on a bicarbonate drip yesterday to improve his acidosis.. On 03/22/2017 the patient is being seen in follow-up. The patient was taken off sedation this morning and he was quite awake. Bit lethargic yet arousable. He was moving extremities and responding to simple commands. He was off pressors. Renal function remains impaired however the patient was producing adequate amount of urine output. An ongoing issue was his underlying metabolic acidosis. He was placed on a bicarb drip briefly however based on the absence of significant bicarbonate stock in the hospital day infusion was stopped. He is still on TPN for nutritional support. He is receiving acetate through the TPN. Currently is on a mechanical ventilator. His assist-control at the rate of 24, tidal volume 450, FiO2 of 40% and a PEEP of 5. Chest x-rays showing small bilateral pleural effusion and ET tube is in good location. The blood gases from earlier this morning showed a pH of 7.32 with a pCO2 of 24 and pO2 155. Based on this, check his weaning parameters and he had a rapid shallow breathing index of less than 50. I give the patient a spontaneous breathing trial for a total of 45 minutes and subsequent blood gases showed a pH of 7.35 with a pCO2 of 25 and pO2 of 165. I give the patient 2 A of bicarb for a bicarb level of 14. Subsequently I extubated the patient. Postextubation, he held himself well. No tachypnea. No respiratory distress. NG tube still in place. The patient's BUN is at 97 creatinine is at 4.5. He was given Lasix IV. He is in significant fluid overload including edema in the lower extremities in the scrotum. Antibiotic coverage includes a combination of Zosyn , daptomycin and Diflucan. Sputum at shown MRSA. 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 Upon subsequent follow-up, daptomycin was discontinued and the patient was switched to vancomycin. On 03/23/2017 the patient is being seen in follow-up. The patient was successfully extubated yesterday and currently is on oxygen at room air. Pulse ox is above 90%. He has an MRSA in the sputum which is probably a colonizer. He is still on broad-spectrum antibiotics. The surgical wound site is clean. Bowel sounds are absent. He remains on TPN for nutritional support. He is bicarb level is gradually improving it's up to 16. He still has extensive edema both in upper and lower extremities and he also edema in his scrotum. I started him on Lasix 40 mg every 12 hours and he is producing approximately 3 L of urine output. Nevertheless, that fluid balance remains positive. He is on a combination of vancomycin, Zosyn and Diflucan for now. He is on TPN for nutritional support. He is on insulin drip at 8 units an hour. He is having some purulent drainage from the LOUISA drain and this was noted this morning. The material will be sent for culture. Afebrile. Surgeries on the case. Awake yet lethargic. Comfortable. On 03/24/2017, patient remains off mechanical ventilation, he was eventually extubated 2 days ago, and he is on room air. Remains on broad-spectrum antibiotics, surgical wound seems to be relatively clean, bowel sounds remain absent, patient is presently on TPN for nutritional support. Continues to have extensive edema in upper or lower extremities and lower extremities and in the scrotal area. Remains on diuretics with good and excellent urine output. Patient is on vancomycin and Zosyn and Diflucan. He is also on insulin drip. WBC count is 15.0 hemoglobin is 8.5. BUN is 105 creatinine is down to 3.71 and bicarb is 19. Objective - Vital Signs Vital signs: Vital Signs Temp 97.6 F 03/24/17 08:00 Pulse 96 03/24/17 11:00 Resp 32 H 03/24/17 11:00 BP 97/54 03/24/17 11:00 Pulse Ox 97 03/24/17 11:00 Intake & Output 03/23/17 03/24/17 03/24/17 18:59 06:59 18:59 Intake Total 4001.592 3812.049 319.427 Output Total 3505 2840 745 Balance 496.592 972.049 -425.573 Weight 93.7 kg 93.6 kg Intake: IV 1392.5 1330.0 160 Dextrose 5% in Water 1, 480 1080 160 000 ml @ 60 mls/hr IV . [id number] ONE Rx#:[id number] Fluconazole in NaCl Iso- 50 Osm 100mg in Saline 1 50ml.bag @50mls/hr IVPB Daily Mvi, Adult No.4 with Vit 800 K 10 ml Trace (Conc-1Ml/ Dose) 1 ml Parenteral Electrolytes 20 ml Potassium Acetate 10 meq In Amino Acid 5%-D15w 1, 000 ml @ 100 mls/hr IV . BY DURATION [facility] Rx#: [id number] Piperacillin-Tazobactam 3 62.5 50.0 .375 gm In Dextrose/Water 1 50ml.bag @ 12.5 mls/hr IVPB Q12HR [facility] Rx#: [id number] Potassium Chloride 10 meq 200 In Water For Injection 1 100ml.bag @ 100 mls/hr IVPB ONCE STA Rx#: [id number] Sodium Chloride 0.9% 1, 0 000 ml @ 40 mls/hr IV . Q24H [facility] Rx#:[id number] Intake, IV Titration 2609.092 1141.049 159.427 Amount Dextrose 5% in Water 1, 60 000 ml @ 60 mls/hr IV . [id number] ONE Rx#:[id number] Fat Emulsion 20% 250 ml 105 In Empty Bag 1 bag @ 21 mls/hr IV DAILY@1400 [facility] Rx#:[id number] Insulin Regular 100 unit 78.092 116.049 9.427 In Sodium Chloride 0.9% 100 ml @ Per Protocol IV .Q0M [facility] Rx#:[id number] Magnesium Sulfate-D5w Pmx 100 1 gm In Dextrose/Water 1 100ml.bag @ 100 mls/hr IVPB Q1H [facility] Rx#: [id number] Mvi, Adult No.4 with Vit 1241 K 10 ml Trace (Conc-1Ml/ Dose) 1 ml Parenteral Electrolytes 20 ml Potassium Acetate 10 meq In Amino Acid 5%-D15w 1, 000 ml @ 100 mls/hr IV . BY DURATION [facility] Rx#: [id number] Parenteral Electrolytes 1025 1025 20 ml Potassium Acetate 10 meq In Amino Acid 5%- D15w 1,000 ml @ 100 mls/ hr IV .BY DURATION [facility] Rx #:[id number] Potassium Chloride 10 meq 100 In Water For Injection 1 100ml.bag @ 100 mls/hr IVPB ONCE STA Rx#: [id number] Potassium Chloride 20 meq 50 In Water For Injection 1 100ml.bag @ 50 mls/hr IVPB ONCE ONE Rx#: [id number] TPN/PPN 1110 Fluconazole in NaCl Iso- 1010 Osm 100mg in Saline 1 50ml.bag @50mls/hr IVPB Daily Sodium Chloride 0.9% 1, 100 000 ml @ 40 mls/hr IV . Q24H [facility] Rx#:[id number] Lipid 210 Fluconazole in NaCl Iso- 210 Osm 100mg in Saline 1 50ml.bag @50mls/hr IVPB Daily Albumin 21 Sodium Chloride 0.9% 1, 21 000 ml @ 40 mls/hr IV . Q24H [facility] Rx#:[id number] Output: Gastric Drainage 200 Drainage 80 20 40 Right Lower Abdomen 80 20 40 Urine 3425 2620 705 Stool 0 0 Other: Voiding Method Indwelling Catheter Indwelling Catheter Indwelling Catheter ABP, PAP, CO, CI - Last Documented Arterial Blood Pressure 146/54 - Exam Patient is extubated. Awake. NG tube still in place. Head exam was generally normal. There was no scleral icterus or corneal arcus. Mucous membranes were moist.There was no scleral icterus or corneal arcus. Mucous membranes were moist. Neck is supple and the patient has a right IJ triple-lumen catheter. The patient also has an orogastric and NG tube in place.Lungs were clear to auscultation and percussion, and with normal diaphragmatic excursion. No wheezes or rales were noted. Cardiac exam revealed the PMI to be normally situated and sized. The rhythm was regular and no extrasystoles were noted during several minutes of auscultation. The first and second heart sounds were normal and physiologic splitting of the second heart sound was noted. There were no murmurs, rubs, clicks, or gallops. Abdomen is soft. Bowel sounds are absent. There is a midabdominal large skin wound which is dry clean and intact and the patient has a right lower quadrant LOUISA drain in place. There is some purulent material that was drained from the LOUISA drain in his right lower quadrant. No ascites. Extremities show below-knee amputation on the right, 4 of the toes are missing in the left foot with diminished pulses at the obtained by Doppler signal. Neurologically the patient is awake and following some simple commands. Still lethargic. Extensive scrotal edema - Labs CBC & Chem 7: 03/24/17 05:50 03/24/17 05:50 Labs: Abnormal Lab Results - Last 24 Hours (Table) 03/23/17 03/23/17 03/23/17 Range/Units 12:28 13:08 13:10 WBC (3.8-10.6) k/uL RBC (4.30-5.90) m/uL Hgb (13.0-17.5) gm/dL Hct (39.0-53.0) % MCHC (31.0-37.0) g/dL RDW (11.5-15.5) % Neutrophils # (1.3-7.7) k/uL Potassium 5.3 H (3.5-5.1) mmol/L Chloride (98-107) mmol/L Carbon Dioxide (22-30) mmol/L BUN (9-20) mg/dL Creatinine (0.66-1.25) mg/dL Glucose (74-99) mg/dL POC Glucose (mg/dL) 157 H 171 H (75-99) mg/dL Calcium (8.4-10.2) mg/dL Phosphorus (2.5-4.5) mg/dL Albumin (3.5-5.0) g/dL 03/23/17 03/23/17 03/23/17 Range/Units 13:55 15:06 16:04 WBC (3.8-10.6) k/uL RBC (4.30-5.90) m/uL Hgb (13.0-17.5) gm/dL Hct (39.0-53.0) % MCHC (31.0-37.0) g/dL RDW (11.5-15.5) % Neutrophils # (1.3-7.7) k/uL Potassium (3.5-5.1) mmol/L Chloride (98-107) mmol/L Carbon Dioxide (22-30) mmol/L BUN (9-20) mg/dL Creatinine (0.66-1.25) mg/dL Glucose (74-99) mg/dL POC Glucose (mg/dL) 188 H 163 H 147 H (75-99) mg/dL Calcium (8.4-10.2) mg/dL Phosphorus (2.5-4.5) mg/dL Albumin (3.5-5.0) g/dL 03/23/17 03/23/17 03/23/17 Range/Units 16:58 18:56 19:50 WBC (3.8-10.6) k/uL RBC (4.30-5.90) m/uL Hgb (13.0-17.5) gm/dL Hct (39.0-53.0) % MCHC (31.0-37.0) g/dL RDW (11.5-15.5) % Neutrophils # (1.3-7.7) k/uL Potassium (3.5-5.1) mmol/L Chloride (98-107) mmol/L Carbon Dioxide (22-30) mmol/L BUN (9-20) mg/dL Creatinine (0.66-1.25) mg/dL Glucose (74-99) mg/dL POC Glucose (mg/dL) 152 H 145 H 128 H (75-99) mg/dL Calcium (8.4-10.2) mg/dL Phosphorus (2.5-4.5) mg/dL Albumin (3.5-5.0) g/dL 03/23/17 03/23/17 03/23/17 Range/Units 21:27 22:16 23:08 WBC (3.8-10.6) k/uL RBC (4.30-5.90) m/uL Hgb (13.0-17.5) gm/dL Hct (39.0-53.0) % MCHC (31.0-37.0) g/dL RDW (11.5-15.5) % Neutrophils # (1.3-7.7) k/uL Potassium (3.5-5.1) mmol/L Chloride (98-107) mmol/L Carbon Dioxide (22-30) mmol/L BUN (9-20) mg/dL Creatinine (0.66-1.25) mg/dL Glucose (74-99) mg/dL POC Glucose (mg/dL) 131 H 188 H 201 H (75-99) mg/dL Calcium (8.4-10.2) mg/dL Phosphorus (2.5-4.5) mg/dL Albumin (3.5-5.0) g/dL 03/23/17 03/24/17 03/24/17 Range/Units 23:59 01:30 02:18 WBC (3.8-10.6) k/uL RBC (4.30-5.90) m/uL Hgb (13.0-17.5) gm/dL Hct (39.0-53.0) % MCHC (31.0-37.0) g/dL RDW (11.5-15.5) % Neutrophils # (1.3-7.7) k/uL Potassium (3.5-5.1) mmol/L Chloride (98-107) mmol/L Carbon Dioxide (22-30) mmol/L BUN (9-20) mg/dL Creatinine (0.66-1.25) mg/dL Glucose (74-99) mg/dL POC Glucose (mg/dL) 198 H 200 H 195 H (75-99) mg/dL Calcium (8.4-10.2) mg/dL Phosphorus (2.5-4.5) mg/dL Albumin (3.5-5.0) g/dL 03/24/17 03/24/17 03/24/17 Range/Units 02:54 04:09 05:02 WBC (3.8-10.6) k/uL RBC (4.30-5.90) m/uL Hgb (13.0-17.5) gm/dL Hct (39.0-53.0) % MCHC (31.0-37.0) g/dL RDW (11.5-15.5) % Neutrophils # (1.3-7.7) k/uL Potassium (3.5-5.1) mmol/L Chloride (98-107) mmol/L Carbon Dioxide (22-30) mmol/L BUN (9-20) mg/dL Creatinine (0.66-1.25) mg/dL Glucose (74-99) mg/dL POC Glucose (mg/dL) 195 H 184 H 177 H (75-99) mg/dL Calcium (8.4-10.2) mg/dL Phosphorus (2.5-4.5) mg/dL Albumin (3.5-5.0) g/dL 03/24/17 03/24/17 03/24/17 Range/Units 05:50 05:50 06:44 WBC 15.0 H (3.8-10.6) k/uL RBC 2.99 L (4.30-5.90) m/uL Hgb 8.5 L (13.0-17.5) gm/dL Hct 27.5 L (39.0-53.0) % MCHC 30.9 L (31.0-37.0) g/dL RDW 16.5 H (11.5-15.5) % Neutrophils # 12.5 H (1.3-7.7) k/uL Potassium 3.4 L (3.5-5.1) mmol/L Chloride 117 H (98-107) mmol/L Carbon Dioxide 19 L (22-30) mmol/L BUN 105 H* (9-20) mg/dL Creatinine 3.71 H (0.66-1.25) mg/dL Glucose 142 H (74-99) mg/dL POC Glucose (mg/dL) 142 H (75-99) mg/dL Calcium 7.8 L (8.4-10.2) mg/dL Phosphorus 1.7 L (2.5-4.5) mg/dL Albumin 1.8 L (3.5-5.0) g/dL 03/24/17 03/24/17 Range/Units 10:07 11:14 WBC (3.8-10.6) k/uL RBC (4.30-5.90) m/uL Hgb (13.0-17.5) gm/dL Hct (39.0-53.0) % MCHC (31.0-37.0) g/dL RDW (11.5-15.5) % Neutrophils # (1.3-7.7) k/uL Potassium (3.5-5.1) mmol/L Chloride (98-107) mmol/L Carbon Dioxide (22-30) mmol/L BUN (9-20) mg/dL Creatinine (0.66-1.25) mg/dL Glucose (74-99) mg/dL POC Glucose (mg/dL) 142 H 185 H (75-99) mg/dL Calcium (8.4-10.2) mg/dL Phosphorus (2.5-4.5) mg/dL Albumin (3.5-5.0) g/dL Microbiology - Last 24 Hours (Table) 03/23/17 08:00 Gram Stain - Preliminary Peritoneal Fluid Body Fluid Culture - Preliminary Assessment and Plan Plan: 1 acute abdomen status post extra laparotomy and repair of a perforated peptic ulcer a modified Don patch and open cholecystectomy. Patient is postop day # 7 2 shock secondary to septic in nature secondary to intra-abdominal sepsis complicated by perforated peptic ulcer and cholecystitis. Patient has been stabilized. The patient is currently off pressors. Antibiotic coverage including a combination of vancomycin, Zosyn and Diflucan. Nevertheless, on today's evaluation the patient is having some purulent drainage from the LOUISA drain. These will be sent for culture. Suspect formation of an intra- abdominal abscess. The CAT scan of the abdomen will be needed at a later stage. He is afebrile hemodynamically stable at this point. 3 hypotension secondary to above , recovered 4 acute respiratory failure, a complication of septic shock. Extubated without any major difficulties. 5 acute kidney injury on top of chronic renal failure. The patient has stage II kidney disease at baseline due to diabetic nephropathy. Acute kidney injury related to hypotension/sepsis due to ATN. The patient remains in acute kidney injury. The patient is nonoliguric. Renal function is gradually improving. This 6 acute lactic acidosis, recovered 7 diabetes mellitus with poorly controlled blood sugar secondary to sepsis currently on insulin drip for blood sugar control. 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 17 MRSA in the sputum, likely a colonizer. Recommendation: There is still a concern about possible intra-abdominal sepsis and abscess formation, patient is being closely monitored by surgery, presently afebrile, on broad-spectrum antibiotics, we are continuing to monitor his LOUISA drainage, we will continue TPN, continue diuretics, monitor renal profile closely, continue incentive spirometry, ambulate as soon as possible. CT of the abdomen is being considered, will likely arrange for it in the next 24-48 hours. Would also recommend a PICC line in the next couple of days. Critical care time is 32 minutes. Time with Patient: Greater than 30
[2017-03-24] MEDS: HYDROmorphone 1 MG/ML 1 ML SYRINGE IVP PRN ×2 (12:51→21:40)
[2017-03-24 12:56] LABS: Glucose,Whole Blood 200 mg/dL (75-99)
[2017-03-24 14:24] LABS: Glucose,Whole Blood 229 mg/dL (75-99)
[2017-03-24 15:49] LABS: Glucose,Whole Blood 250 mg/dL (75-99)
[2017-03-24] MEDS: FAT EMULSION 20% 250 ML in EMPTY BAG 1 BAG IV SCH (16:44)
[2017-03-24 16:57] LABS: Glucose,Whole Blood 258 mg/dL (75-99)
[2017-03-24 17:38] LABS: Glucose,Whole Blood 259 mg/dL (75-99)
--- NOTE | 2017-03-24 17:56 | P.PN ---
Subjective Principal diagnosis: Perforated peptic ulcer Patient was extubated over the weekend. He remains edematous. Denies abdominal pain. Nasogastric tube remains bilious. LOUISA drain remained serous. Objective - Vital Signs Vital signs: Vital Signs Temp 97.8 F 03/24/17 17:00 Pulse 87 03/24/17 17:00 Resp 18 03/24/17 17:00 BP 119/66 03/24/17 17:00 Pulse Ox 97 03/24/17 17:00 Intake & Output 03/23/17 03/24/17 03/24/17 18:59 06:59 18:59 Intake Total 4001.592 3812.049 1259.257 Output Total 3505 2840 1435 Balance 496.592 972.049 -175.743 Weight 93.7 kg 93.6 kg Intake: IV 1392.5 1330.0 650 Dextrose 5% in Water 1, 480 1080 500 000 ml @ 60 mls/hr IV . [id number] [facility] Rx#:[id number] Fluconazole in NaCl Iso- 50 100 Osm 100mg in Saline 1 50ml.bag @50mls/hr IVPB Daily Mvi, Adult No.4 with Vit 800 K 10 ml Trace (Conc-1Ml/ Dose) 1 ml Parenteral Electrolytes 20 ml Potassium Acetate 10 meq In Amino Acid 5%-D15w 1, 000 ml @ 100 mls/hr IV . BY DURATION [facility] Rx#: [id number] Piperacillin-Tazobactam 3 62.5 50.0 50 .375 gm In Dextrose/Water 1 50ml.bag @ 12.5 mls/hr IVPB Q12HR [facility] Rx#: [id number] Potassium Chloride 10 meq 200 In Water For Injection 1 100ml.bag @ 100 mls/hr IVPB ONCE [facility] Rx#: [id number] Sodium Chloride 0.9% 1, 0 000 ml @ 40 mls/hr IV . Q24H [facility] Rx#:[id number] Intake, IV Titration 2609.092 1141.049 609.257 Amount Dextrose 5% in Water 1, 60 000 ml @ 60 mls/hr IV . [id number] [facility] Rx#:[id number] Fat Emulsion 20% 250 ml 105 In Empty Bag 1 bag @ 21 mls/hr IV DAILY@1400 [facility] Rx#:[id number] Insulin Regular 100 unit 78.092 116.049 29.257 In Sodium Chloride 0.9% 100 ml @ Per Protocol IV .Q0M [facility] Rx#:[id number] Magnesium Sulfate-D5w Pmx 100 1 gm In Dextrose/Water 1 100ml.bag @ 100 mls/hr IVPB Q1H [facility] Rx#: [id number] Mvi, Adult No.4 with Vit 1241 K 10 ml Trace (Conc-1Ml/ Dose) 1 ml Parenteral Electrolytes 20 ml Potassium Acetate 10 meq In Amino Acid 5%-D15w 1, 000 ml @ 100 mls/hr IV . BY DURATION [facility] Rx#: [id number] Mvi, Adult No.4 with Vit 30 K 10 ml Trace (Conc-1Ml/ Dose) 1 ml Parenteral Electrolytes 20 ml Potassium Acetate 20 meq In Amino Acid 5%-D15w 1, 000 ml @ 100 mls/hr IV . BY DURATION [facility] Rx#: [id number] Parenteral Electrolytes 1025 1025 20 ml Potassium Acetate 10 meq In Amino Acid 5%- D15w 1,000 ml @ 100 mls/ hr IV .BY DURATION [facility] Rx #:[id number] Potassium Chloride 10 meq 100 In Water For Injection 1 100ml.bag @ 100 mls/hr IVPB ONCE [facility] Rx#: [id number] Potassium Chloride 10 meq 100 In Water For Injection 1 100ml.bag @ 100 mls/hr IVPB Q1H [facility] Rx#: [id number] Potassium Chloride 20 meq 50 In Water For Injection 1 100ml.bag @ 50 mls/hr IVPB ONCE [facility] Rx#: [id number] Sodium Phosphate 10 mmol 50 In Sodium Chloride 0.9% 100 ml @ 50 mls/hr IVPB Q2H [facility] Rx#:[id number] Vancomycin 1,500 mg In 250 Dextrose 5% in Water 250 ml @ 125 mls/hr IVPB ONCE [facility] Rx#:[id number] TPN/PPN 1110 Fluconazole in NaCl Iso- 1010 Osm 100mg in Saline 1 50ml.bag @50mls/hr IVPB Daily Sodium Chloride 0.9% 1, 100 000 ml @ 40 mls/hr IV . Q24H [facility] Rx#:[id number] Lipid 210 Fluconazole in NaCl Iso- 210 Osm 100mg in Saline 1 50ml.bag @50mls/hr IVPB Daily Albumin 21 Sodium Chloride 0.9% 1, 21 000 ml @ 40 mls/hr IV . Q24H [facility] Rx#:[id number] Output: Gastric Drainage 200 Drainage 80 20 90 Right Lower Abdomen 80 20 90 Urine 3425 2620 1345 Stool 0 0 Other: Voiding Method Indwelling Catheter Indwelling Catheter Indwelling Catheter ABP, PAP, CO, CI - Last Documented Arterial Blood Pressure 146/54 - Exam Abdomen: Soft, slight distention, edematous abdominal wall, incision clean and dry - Labs CBC & Chem 7: 03/24/17 05:50 03/24/17 05:50 Labs: Abnormal Lab Results - Last 24 Hours (Table) 03/23/17 03/23/17 03/23/17 Range/Units 18:56 19:50 21:27 WBC (3.8-10.6) k/uL RBC (4.30-5.90) m/uL Hgb (13.0-17.5) gm/dL Hct (39.0-53.0) % MCHC (31.0-37.0) g/dL RDW (11.5-15.5) % Neutrophils # (1.3-7.7) k/uL Potassium (3.5-5.1) mmol/L Chloride (98-107) mmol/L Carbon Dioxide (22-30) mmol/L BUN (9-20) mg/dL Creatinine (0.66-1.25) mg/dL Glucose (74-99) mg/dL POC Glucose (mg/dL) 145 H 128 H 131 H (75-99) mg/dL Calcium (8.4-10.2) mg/dL Phosphorus (2.5-4.5) mg/dL Albumin (3.5-5.0) g/dL 03/23/17 03/23/17 03/23/17 Range/Units 22:16 23:08 23:59 WBC (3.8-10.6) k/uL RBC (4.30-5.90) m/uL Hgb (13.0-17.5) gm/dL Hct (39.0-53.0) % MCHC (31.0-37.0) g/dL RDW (11.5-15.5) % Neutrophils # (1.3-7.7) k/uL Potassium (3.5-5.1) mmol/L Chloride (98-107) mmol/L Carbon Dioxide (22-30) mmol/L BUN (9-20) mg/dL Creatinine (0.66-1.25) mg/dL Glucose (74-99) mg/dL POC Glucose (mg/dL) 188 H 201 H 198 H (75-99) mg/dL Calcium (8.4-10.2) mg/dL Phosphorus (2.5-4.5) mg/dL Albumin (3.5-5.0) g/dL 03/24/17 03/24/17 03/24/17 Range/Units 01:30 02:18 02:54 WBC (3.8-10.6) k/uL RBC (4.30-5.90) m/uL Hgb (13.0-17.5) gm/dL Hct (39.0-53.0) % MCHC (31.0-37.0) g/dL RDW (11.5-15.5) % Neutrophils # (1.3-7.7) k/uL Potassium (3.5-5.1) mmol/L Chloride (98-107) mmol/L Carbon Dioxide (22-30) mmol/L BUN (9-20) mg/dL Creatinine (0.66-1.25) mg/dL Glucose (74-99) mg/dL POC Glucose (mg/dL) 200 H 195 H 195 H (75-99) mg/dL Calcium (8.4-10.2) mg/dL Phosphorus (2.5-4.5) mg/dL Albumin (3.5-5.0) g/dL 03/24/17 03/24/17 03/24/17 Range/Units 04:09 05:02 05:50 WBC (3.8-10.6) k/uL RBC (4.30-5.90) m/uL Hgb (13.0-17.5) gm/dL Hct (39.0-53.0) % MCHC (31.0-37.0) g/dL RDW (11.5-15.5) % Neutrophils # (1.3-7.7) k/uL Potassium 3.4 L (3.5-5.1) mmol/L Chloride 117 H (98-107) mmol/L Carbon Dioxide 19 L (22-30) mmol/L BUN 105 H* (9-20) mg/dL Creatinine 3.71 H (0.66-1.25) mg/dL Glucose 142 H (74-99) mg/dL POC Glucose (mg/dL) 184 H 177 H (75-99) mg/dL Calcium 7.8 L (8.4-10.2) mg/dL Phosphorus 1.7 L (2.5-4.5) mg/dL Albumin 1.8 L (3.5-5.0) g/dL 03/24/17 03/24/17 03/24/17 Range/Units 05:50 06:44 10:07 WBC 15.0 H (3.8-10.6) k/uL RBC 2.99 L (4.30-5.90) m/uL Hgb 8.5 L (13.0-17.5) gm/dL Hct 27.5 L (39.0-53.0) % MCHC 30.9 L (31.0-37.0) g/dL RDW 16.5 H (11.5-15.5) % Neutrophils # 12.5 H (1.3-7.7) k/uL Potassium (3.5-5.1) mmol/L Chloride (98-107) mmol/L Carbon Dioxide (22-30) mmol/L BUN (9-20) mg/dL Creatinine (0.66-1.25) mg/dL Glucose (74-99) mg/dL POC Glucose (mg/dL) 142 H 142 H (75-99) mg/dL Calcium (8.4-10.2) mg/dL Phosphorus (2.5-4.5) mg/dL Albumin (3.5-5.0) g/dL 03/24/17 03/24/17 03/24/17 Range/Units 11:14 12:54 14:22 WBC (3.8-10.6) k/uL RBC (4.30-5.90) m/uL Hgb (13.0-17.5) gm/dL Hct (39.0-53.0) % MCHC (31.0-37.0) g/dL RDW (11.5-15.5) % Neutrophils # (1.3-7.7) k/uL Potassium (3.5-5.1) mmol/L Chloride (98-107) mmol/L Carbon Dioxide (22-30) mmol/L BUN (9-20) mg/dL Creatinine (0.66-1.25) mg/dL Glucose (74-99) mg/dL POC Glucose (mg/dL) 185 H 200 H 229 H (75-99) mg/dL Calcium (8.4-10.2) mg/dL Phosphorus (2.5-4.5) mg/dL Albumin (3.5-5.0) g/dL 03/24/17 03/24/17 03/24/17 Range/Units 15:48 16:55 17:37 WBC (3.8-10.6) k/uL RBC (4.30-5.90) m/uL Hgb (13.0-17.5) gm/dL Hct (39.0-53.0) % MCHC (31.0-37.0) g/dL RDW (11.5-15.5) % Neutrophils # (1.3-7.7) k/uL Potassium (3.5-5.1) mmol/L Chloride (98-107) mmol/L Carbon Dioxide (22-30) mmol/L BUN (9-20) mg/dL Creatinine (0.66-1.25) mg/dL Glucose (74-99) mg/dL POC Glucose (mg/dL) 250 H 258 H 259 H (75-99) mg/dL Calcium (8.4-10.2) mg/dL Phosphorus (2.5-4.5) mg/dL Albumin (3.5-5.0) g/dL Microbiology - Last 24 Hours (Table) 03/23/17 08:00 Gram Stain - Preliminary Peritoneal Fluid Body Fluid Culture - Preliminary Assessment and Plan (1) Free intraperitoneal air Narrative/Plan: Continue nasogastric tube to suction. Anticipate upper GI in the next 24-48 hours and we'll remove nasogastric tube at that point. Status: Acute
[2017-03-24 18:49] LABS: Glucose,Whole Blood 253 mg/dL (75-99)
[2017-03-24] MEDS ORDERED: 1: MVI, ADULT NO.4 WITH VIT K 10 ML, TRACE (CONC-1ML/DOSE) 1 ML, PARENTERAL ELECTROLYTES IV SCH ×5 (19:00)
[2017-03-24 20:18] LABS: Glucose,Whole Blood 243 mg/dL (75-99)
--- NOTE | 2017-03-24 20:56 | P.PN ---
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 [facility] most recently under the care of Dr. Gordon and discharged in August 2016 after a dehiscence of the right below the knee wound healed. Patient presented to [facility] emergency center on March 16 with generalized weakness and abdominal pain for at least couple days up to 1 week with concerns for constipation and was taking laxatives with no improvement. Patient also had decreased appetite and pain was gradually worsening. There was nausea without vomiting. Chest x-ray showed pneumoperitoneum and left basilar atelectasis with no heart failure. Abdominal films also showed pneumoperitoneum. CAT scan of the abdomen and pelvis without contrast and was found have a large pneumoperitoneum, large ascites, large nonobstructive right renal calculi and possible gallbladder thickening with concern for gangrenous gallbladder. Patient was taken to the OR by Dr. Wiley for exploratory laparotomy with repair of perforated peptic ulcer and open cholecystectomy. Patient was then transferred to the intensive care unit where he remains intubated and on mechanical ventilation. Patient presented with severe sepsis and septic shock status post 7 1/2 liters of fluid currently on levo at 20 mics. He did not have a urine output for the day shift thus far. O2 needs have decreased however. He is currently on IV antimicrobials in the form of fluconazole, Flagyl and Zosyn. Blood cultures status received and urine culture status received. C. difficile toxin was negative. Patient is noted to have a stage II decubitus ulcer on his buttocks that was present on admission. There has improved. He has now been extubated. Weaned vasopressor therapy. Responded to fluids. Urine output is started to improve. Still has acute renal failure. Patient is awake and comfortable. Objective - Vital Signs Vital signs: Vital Signs Temp 97.7 F 03/24/17 20:00 Pulse 94 03/24/17 20:33 Resp 16 03/24/17 20:30 BP 137/67 03/24/17 20:30 Pulse Ox 100 03/24/17 20:30 Intake & Output 03/24/17 03/24/17 03/25/17 06:59 18:59 06:59 Intake Total 3812.049 1379.257 198.928 Output Total 2840 1575 150 Balance 972.049 -195.743 48.928 Weight 93.7 kg 93.6 kg Intake: IV 1330.0 770 60 Dextrose 5% in Water 1, 1080 620 60 000 ml @ 60 mls/hr IV . [id number] [facility] Rx#:[id number] Fluconazole in NaCl Iso- 100 Osm 100mg in Saline 1 50ml.bag @50mls/hr IVPB Daily Piperacillin-Tazobactam 3 50.0 50 .375 gm In Dextrose/Water 1 50ml.bag @ 12.5 mls/hr IVPB Q12HR [facility] Rx#: [id number] Potassium Chloride 10 meq 200 In Water For Injection 1 100ml.bag @ 100 mls/hr IVPB ONCE [facility] Rx#: [id number] Sodium Chloride 0.9% 1, 0 000 ml @ 40 mls/hr IV . Q24H [facility] Rx#:[id number] Intake, IV Titration 1141.049 609.257 138.928 Amount Fat Emulsion 20% 250 ml 21 In Empty Bag 1 bag @ 21 mls/hr IV DAILY@1400 [facility] Rx#:[id number] Insulin Regular 100 unit 116.049 29.257 17.928 In Sodium Chloride 0.9% 100 ml @ Per Protocol IV .Q0M [facility] Rx#:[id number] Magnesium Sulfate-D5w Pmx 100 1 gm In Dextrose/Water 1 100ml.bag @ 100 mls/hr IVPB Q1H [facility] Rx#: [id number] Mvi, Adult No.4 with Vit 30 100 K 10 ml Trace (Conc-1Ml/ Dose) 1 ml Parenteral Electrolytes 20 ml Potassium Acetate 20 meq In Amino Acid 5%-D15w 1, 000 ml @ 100 mls/hr IV . BY DURATION [facility] Rx#: [id number] Parenteral Electrolytes 1025 20 ml Potassium Acetate 10 meq In Amino Acid 5%- D15w 1,000 ml @ 100 mls/ hr IV .BY DURATION [facility] Rx #:[id number] Potassium Chloride 10 meq 100 In Water For Injection 1 100ml.bag @ 100 mls/hr IVPB Q1H [facility] Rx#: [id number] Potassium Chloride 20 meq 50 In Water For Injection 1 100ml.bag @ 50 mls/hr IVPB ONCE [facility] Rx#: [id number] Sodium Phosphate 10 mmol 50 In Sodium Chloride 0.9% 100 ml @ 50 mls/hr IVPB Q2H [facility] Rx#:[id number] Vancomycin 1,500 mg In 250 Dextrose 5% in Water 250 ml @ 125 mls/hr IVPB ONCE [facility] Rx#:[id number] TPN/PPN 1110 Fluconazole in NaCl Iso- 1010 Osm 100mg in Saline 1 50ml.bag @50mls/hr IVPB Daily Sodium Chloride 0.9% 1, 100 000 ml @ 40 mls/hr IV . Q24H [facility] Rx#:[id number] Lipid 210 Fluconazole in NaCl Iso- 210 Osm 100mg in Saline 1 50ml.bag @50mls/hr IVPB Daily Albumin 21 Sodium Chloride 0.9% 1, 21 000 ml @ 40 mls/hr IV . Q24H [facility] Rx#:[id number] Output: Gastric Drainage 200 Drainage 20 90 Right Lower Abdomen 20 90 Urine 2620 1485 150 Stool 0 0 Other: Voiding Method Indwelling Catheter Indwelling Catheter ABP, PAP, CO, CI - Last Documented Arterial Blood Pressure 146/54 - Exam Gen: This is an obese 66-year-old male. He is seen in the ICU, he has been extubated. Patient appears comfortable and in no acute distress. HEENT: Head is atraumatic, normocephalic. Oral ET and gastric tube in place. White coating noted on the tongue. Mucous membranes are slightly dry.. NECK: Supple. No JVD. No lymphadenopathy. Trachea midline. LUNGS: There is symmetrical air entry bilaterally. Coarse crackles are scattered the lung kraft. Subtly improved when he coughs. Scattered wheezes are also heard. HEART: Regular rate and rhythm. No murmur. Patient is tachycardic. ABDOMEN: Soft. Bowel sounds are not present. No masses. No tenderness. LOUISA drain to the right upper abdomen is draining serosanguineous fluid. Dressing to the right upper quadrant and midline are in place with no breakthrough drainage or bleeding. Castellanos catheter in place draining clear pinky urine. EXTREMITIES: No pedal edema to the left lower extremity. Patient has amputations of toes 2 through 5 on the left and a right below the knee amputation. All extremities are cool to the touch. No mottling noted. NEUROLOGICAL: Patient no longer sedated. Eyes are open. Seems comfortable. Denied pain. - Labs CBC & Chem 7: 03/24/17 05:50 03/24/17 05:50 Labs: Abnormal Lab Results - Last 24 Hours (Table) 03/23/17 03/23/17 03/23/17 Range/Units 21:27 22:16 23:08 WBC (3.8-10.6) k/uL RBC (4.30-5.90) m/uL Hgb (13.0-17.5) gm/dL Hct (39.0-53.0) % MCHC (31.0-37.0) g/dL RDW (11.5-15.5) % Neutrophils # (1.3-7.7) k/uL Potassium (3.5-5.1) mmol/L Chloride (98-107) mmol/L Carbon Dioxide (22-30) mmol/L BUN (9-20) mg/dL Creatinine (0.66-1.25) mg/dL Glucose (74-99) mg/dL POC Glucose (mg/dL) 131 H 188 H 201 H (75-99) mg/dL Calcium (8.4-10.2) mg/dL Phosphorus (2.5-4.5) mg/dL Albumin (3.5-5.0) g/dL 03/23/17 03/24/17 03/24/17 Range/Units 23:59 01:30 02:18 WBC (3.8-10.6) k/uL RBC (4.30-5.90) m/uL Hgb (13.0-17.5) gm/dL Hct (39.0-53.0) % MCHC (31.0-37.0) g/dL RDW (11.5-15.5) % Neutrophils # (1.3-7.7) k/uL Potassium (3.5-5.1) mmol/L Chloride (98-107) mmol/L Carbon Dioxide (22-30) mmol/L BUN (9-20) mg/dL Creatinine (0.66-1.25) mg/dL Glucose (74-99) mg/dL POC Glucose (mg/dL) 198 H 200 H 195 H (75-99) mg/dL Calcium (8.4-10.2) mg/dL Phosphorus (2.5-4.5) mg/dL Albumin (3.5-5.0) g/dL 03/24/17 03/24/17 03/24/17 Range/Units 02:54 04:09 05:02 WBC (3.8-10.6) k/uL RBC (4.30-5.90) m/uL Hgb (13.0-17.5) gm/dL Hct (39.0-53.0) % MCHC (31.0-37.0) g/dL RDW (11.5-15.5) % Neutrophils # (1.3-7.7) k/uL Potassium (3.5-5.1) mmol/L Chloride (98-107) mmol/L Carbon Dioxide (22-30) mmol/L BUN (9-20) mg/dL Creatinine (0.66-1.25) mg/dL Glucose (74-99) mg/dL POC Glucose (mg/dL) 195 H 184 H 177 H (75-99) mg/dL Calcium (8.4-10.2) mg/dL Phosphorus (2.5-4.5) mg/dL Albumin (3.5-5.0) g/dL 03/24/17 03/24/17 03/24/17 Range/Units 05:50 05:50 06:44 WBC 15.0 H (3.8-10.6) k/uL RBC 2.99 L (4.30-5.90) m/uL Hgb 8.5 L (13.0-17.5) gm/dL Hct 27.5 L (39.0-53.0) % MCHC 30.9 L (31.0-37.0) g/dL RDW 16.5 H (11.5-15.5) % Neutrophils # 12.5 H (1.3-7.7) k/uL Potassium 3.4 L (3.5-5.1) mmol/L Chloride 117 H (98-107) mmol/L Carbon Dioxide 19 L (22-30) mmol/L BUN 105 H* (9-20) mg/dL Creatinine 3.71 H (0.66-1.25) mg/dL Glucose 142 H (74-99) mg/dL POC Glucose (mg/dL) 142 H (75-99) mg/dL Calcium 7.8 L (8.4-10.2) mg/dL Phosphorus 1.7 L (2.5-4.5) mg/dL Albumin 1.8 L (3.5-5.0) g/dL 03/24/17 03/24/17 03/24/17 Range/Units 10:07 11:14 12:54 WBC (3.8-10.6) k/uL RBC (4.30-5.90) m/uL Hgb (13.0-17.5) gm/dL Hct (39.0-53.0) % MCHC (31.0-37.0) g/dL RDW (11.5-15.5) % Neutrophils # (1.3-7.7) k/uL Potassium (3.5-5.1) mmol/L Chloride (98-107) mmol/L Carbon Dioxide (22-30) mmol/L BUN (9-20) mg/dL Creatinine (0.66-1.25) mg/dL Glucose (74-99) mg/dL POC Glucose (mg/dL) 142 H 185 H 200 H (75-99) mg/dL Calcium (8.4-10.2) mg/dL Phosphorus (2.5-4.5) mg/dL Albumin (3.5-5.0) g/dL 03/24/17 03/24/17 03/24/17 Range/Units 14:22 15:48 16:55 WBC (3.8-10.6) k/uL RBC (4.30-5.90) m/uL Hgb (13.0-17.5) gm/dL Hct (39.0-53.0) % MCHC (31.0-37.0) g/dL RDW (11.5-15.5) % Neutrophils # (1.3-7.7) k/uL Potassium (3.5-5.1) mmol/L Chloride (98-107) mmol/L Carbon Dioxide (22-30) mmol/L BUN (9-20) mg/dL Creatinine (0.66-1.25) mg/dL Glucose (74-99) mg/dL POC Glucose (mg/dL) 229 H 250 H 258 H (75-99) mg/dL Calcium (8.4-10.2) mg/dL Phosphorus (2.5-4.5) mg/dL Albumin (3.5-5.0) g/dL 03/24/17 03/24/17 03/24/17 Range/Units 17:37 18:47 20:17 WBC (3.8-10.6) k/uL RBC (4.30-5.90) m/uL Hgb (13.0-17.5) gm/dL Hct (39.0-53.0) % MCHC (31.0-37.0) g/dL RDW (11.5-15.5) % Neutrophils # (1.3-7.7) k/uL Potassium (3.5-5.1) mmol/L Chloride (98-107) mmol/L Carbon Dioxide (22-30) mmol/L BUN (9-20) mg/dL Creatinine (0.66-1.25) mg/dL Glucose (74-99) mg/dL POC Glucose (mg/dL) 259 H 253 H 243 H (75-99) mg/dL Calcium (8.4-10.2) mg/dL Phosphorus (2.5-4.5) mg/dL Albumin (3.5-5.0) g/dL Microbiology - Last 24 Hours (Table) 03/23/17 08:00 Gram Stain - Preliminary Peritoneal Fluid Body Fluid Culture - Preliminary Laboratory Results WBC 15.0 k/uL (3.8-10.6) H 03/24/17 05:50 RBC 2.99 m/uL (4.30-5.90) L 03/24/17 05:50 Hgb 8.5 gm/dL (13.0-17.5) L 03/24/17 05:50 Hct 27.5 % (39.0-53.0) L 03/24/17 05:50 MCV 91.9 fL (80.0-100.0) 03/24/17 05:50 MCH 28.4 pg (25.0-35.0) 03/24/17 05:50 MCHC 30.9 g/dL (31.0-37.0) L 03/24/17 05:50 RDW 16.5 % (11.5-15.5) H 03/24/17 05:50 Plt Count 230 k/uL (150-450) 03/24/17 05:50 Neutrophils % 83 % 03/24/17 05:50 Neutrophils % (Manual) 61.6 % 03/17/17 04:20 Band Neutrophils % 15.2 % 03/17/17 04:20 Lymphocytes % 8 % 03/24/17 05:50 Lymphocytes % (Manual) 18.2 % 03/17/17 04:20 Monocytes % 4 % 03/24/17 05:50 Monocytes % (Manual) 5.1 % 03/17/17 04:20 Eosinophils % 2 % 03/24/17 05:50 Basophils % 1 % 03/24/17 05:50 Metamyelocytes % 4.0 % 03/16/17 22:50 Neutrophils # 12.5 k/uL (1.3-7.7) H 03/24/17 05:50 Neutrophils # (Manual) 7.1 k/uL (1.3-7.7) 03/17/17 04:20 Lymphocytes # 1.2 k/uL (1.0-4.8) 03/24/17 05:50 Lymphocytes # (Manual) 1.7 k/uL (1.0-4.8) 03/17/17 04:20 Monocytes # 0.6 k/uL (0-1.0) 03/24/17 05:50 Monocytes # (Manual) 0.5 k/uL (0-1.0) 03/17/17 04:20 Eosinophils # 0.3 k/uL (0-0.7) 03/24/17 05:50 Basophils # 0.1 k/uL (0-0.2) 03/24/17 05:50 Nucleated RBCs 0 /100 WBC (0-0) 03/17/17 04:20 Manual Slide Review Performed 03/17/17 04:20 Toxic Granulation Present 03/16/17 16:30 RBC Morphology Normal 03/16/17 16:30 Hypochromasia Marked 03/22/17 06:00 Anisocytosis Slight 03/24/17 05:50 PT 10.4 sec (9.0-12.0) 03/16/17 16:30 INR 1.0 (<1.2) 03/16/17 16:30 APTT 22.1 sec (22.0-30.0) 03/16/17 16:30 Sample Site bushra 03/22/17 11:43 ABG pH 7.35 (7.35-7.45) 03/22/17 11:43 ABG pCO2 25 mmHg (35-45) L 03/22/17 11:43 ABG pO2 165 mmHg (83-108) H 03/22/17 11:43 ABG HCO3 13 mmol/L (21-25) L 03/22/17 11:43 ABG Total CO2 14 mmol/L (19-24) L 03/22/17 11:43 ABG O2 Saturation 99.0 % (94-97) H 03/22/17 11:43 ABG Base Excess -11.1 mmol/L 03/22/17 11:43 ABG Hematocrit 29 % (34.0-46.0) L 03/16/17 21:12 ABG Lactic Acid 0.7 mmol/L (0.5-1.6) 03/20/17 04:45 VBG pH 7.25 (7.31-7.41) L 03/16/17 16:30 VBG pCO2 29 mmHg (37-51) L 03/16/17 16:30 VBG HCO3 12 mmol/L (24-28) L 03/16/17 16:30 FiO2 40 % 03/22/17 11:43 Sodium 145 mmol/L (137-145) 03/24/17 05:50 Potassium 3.4 mmol/L (3.5-5.1) L 03/24/17 05:50 Chloride 117 mmol/L (98-107) H 03/24/17 05:50 Carbon Dioxide 19 mmol/L (22-30) L 03/24/17 05:50 Anion Gap 9 mmol/L 03/24/17 05:50 BUN 105 mg/dL (9-20) H* 03/24/17 05:50 Creatinine 3.71 mg/dL (0.66-1.25) H 03/24/17 05:50 Est GFR (MDRD) Af Amer 20 (>60 ml/min/1.73 sqM) 03/24/17 05:50 Est GFR (MDRD) Non-Af 17 (>60 ml/min/1.73 sqM) 03/24/17 05:50 Glucose 142 mg/dL (74-99) H 03/24/17 05:50 POC Glucose (mg/dL) 243 mg/dL (75-99) H 03/24/17 20:17 POC Glu Bariatric Nurse ID Ashleigh Mittal 03/24/17 20:[address] Glu mg/dL 174 mg/dL 03/17/17 04:20 Hemoglobin A1c 7.7 % (4.2-6.1) H 03/17/17 04:20 Lactic Ac Sepsis Rflx Y 03/16/17 16:57 Plasma Lactic Acid Mario 2.8 mmol/L (0.7-2.0) H* 03/16/17 22:42 Calcium 7.8 mg/dL (8.4-10.2) L 03/24/17 05:50 Ionized Calcium Valorie 5.3 mg/dL (4.5-5.3) 03/22/17 Unknown Phosphorus 1.7 mg/dL (2.5-4.5) L 03/24/17 05:50 Magnesium 2.0 mg/dL (1.6-2.3) 03/24/17 05:50 Total Bilirubin 1.5 mg/dL (0.2-1.3) H 03/20/17 11:36 AST 19 U/L (17-59) 03/20/17 11:36 ALT 28 U/L (21-72) 03/20/17 11:36 Alkaline Phosphatase 60 U/L (38-126) 03/20/17 11:36 Total Creatine Kinase 216 U/L (55-170) H 03/16/17 16:30 CK-MB (CK-2) 2.9 ng/mL (0.0-2.4) H* 03/16/17 16:30 CK-MB (CK-2) Rel Index 1.3 03/16/17 16:30 Troponin I 0.590 ng/mL (0.000-0.034) H* 03/16/17 16:30 Total Protein 3.4 g/dL (6.3-8.2) L 03/20/17 11:36 Albumin 1.8 g/dL (3.5-5.0) L 03/24/17 05:50 Triglycerides 115 mg/dL (<150) 03/21/17 04:15 TSH 0.672 mIU/L (0.465-4.680) 03/16/17 16:30 Urine Color Dark Yellow 03/16/17 19:00 Urine Appearance Cloudy (Clear) 03/16/17 19:00 Urine pH 5.0 (5.0-8.0) 03/16/17 19:00 Ur Specific [place] 1.017 (1.001-1.035) 03/16/17 19:00 Urine Protein 1+ (Negative) H 03/16/17 19:00 Urine Glucose (UA) 1+ (Negative) H 03/16/17 19:00 Urine Ketones Negative (Negative) 03/16/17 19:00 Urine Blood Trace (Negative) H 03/16/17 19:00 Urine Nitrite Negative (Negative) 03/16/17 19:00 Urine Bilirubin Negative (Negative) 03/16/17 19:00 Urine Urobilinogen <2.0 mg/dL (<2.0) 03/16/17 19:00 Ur Leukocyte Esterase Negative (Negative) 03/16/17 19:00 Urine RBC 15 /hpf (0-5) H 03/16/17 19:00 Urine WBC 4 /hpf (0-5) 03/16/17 19:00 Amorphous Sediment Occasional /hpf (None) H 03/16/17 19:00 Hyaline Casts 110 /lpf (0-2) H 03/16/17 19:00 Random Vancomycin 20.6 ug/mL 03/24/17 05:50 C. difficile (EIA) Intrp Negative (Negative) 03/16/17 23:00 Blood Type A Positive 03/16/17 16:30 Blood Type Recheck No 03/16/17 16:30 Antibody Screen NEGATIVE 03/16/17 16:30 Spec Expiration Date 03/19/2017 - 232903/16/17 16:30 Microbiology 03/23/17 08:00 Peritoneal Fluid Gram Stain - Preliminary 03/23/17 08:00 Peritoneal Fluid Body Fluid Culture - Preliminary 03/16/17 16:30 Blood Blood Culture - Final No Growth after 144 hours 03/18/17 02:25 Sputum Gram Stain - Final 03/18/17 02:25 Sputum Sputum Culture - Final Methicillin resist S. aureus 03/16/17 19:00 Urine,Voided Urine Culture - Final Assessment and Plan (1) Septic shock Narrative/Plan: 66-year-old male with multiple medical troubles with left toe amputations and right below-knee amputation due to his severe peripheral vascular disease. Now presents with a significant bout of sepsis from the abdomen. Has evidence of pneumoperitoneum. Perforated gastric ulcer was noted. As well as gangrenous cholecystitis. He's had the surgical incision is noted. Remains profoundly ill with septic shock. For sepsis from the abdominal source in the condition of the perforation and gangrenous cholecystitis continue with antifungal therapy with fluconazole. Piperacillin tazobactam is being dosed per his renal failure. Has a history of MRSA as well as VRE infection. Daptomycin was being utilized. However MRSA was found in the pulmonary secretions. Was changed to vancomycin and that no VRE has now been isolated from his abdominal cultures. Concerns related to his acute renal failure. Will be monitored closely. Cultures are in process. Supportive care continues. Doing well after extubation is awake and comfortable. Not complaining of abdominal pain. Status: Acute (2) Gastric perforation Status: Acute (3) Cholecystitis Status: Acute
[2017-03-24 21:05] LABS: Glucose,Whole Blood 236 mg/dL (75-99)
[2017-03-24 22:10] LABS: Glucose,Whole Blood 230 mg/dL (75-99)
[2017-03-24 22:54] LABS: Glucose,Whole Blood 226 mg/dL (75-99)
[2017-03-25 00:05] LABS: Glucose,Whole Blood 233 mg/dL (75-99)
[2017-03-25] MEDS: HEPARIN SODIUM,PORCINE 5,000 UNIT/ML 1 ML VIAL SQ SCH ×3 (00:51→18:26)
[2017-03-25 00:58] LABS: Glucose,Whole Blood 209 mg/dL (75-99)
[2017-03-25 01:56] LABS: Glucose,Whole Blood 206 mg/dL (75-99)
[2017-03-25] MEDS ORDERED: POTASSIUM CHLORIDE 20 MEQ in WATER FOR INJECTION 1 100ML.BAG IVPB ONE (01:58)
[2017-03-25] MEDS ORDERED: Potassium Replacement Protocol 1 EACH MISC MISCELLANE PRN ×2 (01:58→07:05)
[2017-03-25 03:01] LABS: Glucose,Whole Blood 197 mg/dL (75-99)
[2017-03-25] MEDS: HYDROmorphone 1 MG/ML 1 ML SYRINGE IVP PRN (03:04)
[2017-03-25 03:54] LABS: Glucose,Whole Blood 166 mg/dL (75-99)
[2017-03-25 05:16] LABS: Glucose,Whole Blood 138 mg/dL (75-99)
[2017-03-25 05:55] LABS: Glucose,Whole Blood 145 mg/dL (75-99)
[2017-03-25 05:58] LABS: Anisocytosis Slight; Basophils # (A) 0.1 k/uL (0-0.2); Basophils % (A) 1 %; CH 29.6; CHCM 32.8; Eosinophils # (A) 0.3 k/uL (0-0.7); Eosinophils % (A) 2 %; HCT 26.3 % (39.0-53.0); HDW 3.01; HGB 8.3 gm/dL (13.0-17.5); Luc % (Auto) 3; Lymphocytes # (A) 1.5 k/uL (1.0-4.8); Lymphocytes % (A) 9 %; MCH 28.6 pg (25.0-35.0); MCHC 31.4 g/dL (31.0-37.0); MCV 90.9 fL (80.0-100.0); Mean Platelet Volume 10.6; Monocytes # (A) 0.7 k/uL (0-1.0); Monocytes % (A) 5 %; Neutrophils # (A) 12.7 k/uL (1.3-7.7); Neutrophils % (A) 80 %; RBC 2.89 m/uL (4.30-5.90); WBC 15.8 k/uL (3.8-10.6); WBC (Perox) 16.33
[2017-03-25 06:55] LABS: Calcium 8.1 mg/dL (8.4-10.2); Magnesium 2.3 mg/dL (1.6-2.3); Phosphorous 2.6 mg/dL (2.5-4.5); Potassium 3.9 mmol/L (3.5-5.1)
[2017-03-25 07:03] LABS: Glucose,Whole Blood 129 mg/dL (75-99)
[2017-03-25] MEDS: IPRATROPIUM-ALBUTEROL 3 ML NEB INHALATION SCH ×4 (07:38→20:49)
[2017-03-25 08:15] LABS: Glucose,Whole Blood 126 mg/dL (75-99)
[2017-03-25] MEDS: POTASSIUM CHLORIDE 10 MEQ in WATER FOR INJECTION 1 100ML.BAG IVPB SCH ×2 (08:16→09:43)
[2017-03-25] MEDS: FUROSEMIDE 10 MG/ML 4 ML VIAL IV SCH (08:16)
[2017-03-25] MEDS: PANTOPRAZOLE 40 MG/10 ML VIAL IV SCH ×2 (08:16→21:21)
[2017-03-25] MEDS: 1: MVI, ADULT NO.4 WITH VIT K 10 ML, TRACE (CONC-1ML/DOSE) 1 ML, POTASSIUM ACETATE 20 ME IV SCH ×8 (08:17→21:21)
[2017-03-25] MEDS: PIPERACILLIN-TAZOBACTAM 3.375 GM in DEXTROSE/WATER 1 50ML.BAG IVPB SCH ×2 (08:18→21:21)
[2017-03-25] MEDS: FLUCONAZOLE IN NACL,ISO-OSM 100 MG in SALINE 1 50ML.BAG IVPB SCH (08:18)
[2017-03-25 09:03] LABS: Glucose,Whole Blood 129 mg/dL (75-99)
[2017-03-25 10:00] LABS: Glucose,Whole Blood 151 mg/dL (75-99)
--- NOTE | 2017-03-25 11:12 | P.PN ---
Subjective Principal diagnosis: Acute abdominal sepsis and perforation of peptic ulcer. A 66-year-old male patient who came into the intensive care unit after undergoing expiratory laparotomy and repair of a perforated peptic ulcer with a modified Don patch and open cholecystectomy. Surgery was done last night and the patient was brought into the intensive care unit intubated on a mechanical ventilator. According to the reported history the patient was having 3-4 days history of a vague abdominal pain. This being gradually got worse. The patient was also having constipation. He had some nausea without vomiting. Appetite was diminished. No bright red blood per rectum. The pain was mainly over the central abdomen. No history of any peptic ulcer disease or diverticular disease. The x-ray of the abdomen in the emergency department showed pneumoperitoneum and the CAT scan confirmed the presence of a large volume of free air. The gallbladder was also thickened. The majority of the air was in the upper abdomen. Intraoperatively, the patient was found to have a perforated peptic ulcer and a gangrenous gallbladder. The patient is currently in the intensive care unit. The patient has received a total of 7 L of IV fluids. He has chronic renal failure and had developed acute kidney injury on top of chronic renal insufficiency and currently is oliguric producing only 5-10 mL an hour of urine output. The patient is intubated on a mechanical ventilator. The patient on assist control mode at the rate of 10, tidal volume 450, FiO2 of 40% and a PEEP of 5. His blood. From this morning showed a pH of 7.31 with a pCO2 of 27 and pO2 of 198 and based on that the FiO2 was weaned down. Chest x-ray shows no pneumothorax or pneumoperitoneum. ET tube is in a good location. Hemodynamically, the patient was doing poorly. He was in septic shock. He was tachycardic with a heart rate in the 1:30 range. This improved with fluid resuscitation his current heart rate is sinus at 110. He also was on higher doses of pressors and norepinephrine infusion was running at 25 mics and currently is down to 50 mics. He is covered with a combination of IV Zosyn, IV Diflucan and IV Flagyl. He is afebrile for now. Is sedated with Diprivan. He has a below-knee amputation on the right lower extremity and the feet on the left lower extremity shows marked diminished pulses at is obtainable by Doppler. Lactic acid level was 5.4 at time of admission is currently down to 2.7. He has a right IJ triple-lumen catheter. He has a right upper extremity radial art line. He also has a LOUISA drain in his right lower quadrant area. On 03/18/2017 I'm seeing this patient in the follow-up. The patient remains intubated on a mechanical ventilator. He remains an assist-control mode of ventilation at a tidal volume 450, rate of 24, FiO2 of 40% and a PEEP of 5. His blood gases from this morning showed a pH of 7.26 with a pCO2 of 30 and pO2 of 155. Chest x-ray from this morning shows small bilateral pleural effusions, ET tube is in a good location, NG tube is in a good location and there is no acute pulmonary infiltrates or consolidations. Hemodynamically, the patient is still pressor dependent at 15 mics. Overnight he had to be as high as 20 mics and then he got weaned again down to 15 g of norepinephrine infusion. Urine output is gradually improving. Over the past 12 hours he produced approximately 50 mL of urine output. The patient is still having intermittent renal function and the creatinine still elevated at 4.8 which is comparable to yesterday. Rest of the electrodes are within normal. The patient is still acidotic with a bicarb level of 13. He received a total of 3 L of normal saline and 2 A of 12.5 g of albumin. He is still on a combination of Zosyn, Flagyl and Diflucan. All of the cultures of been negative. He remains nothing by mouth. Surgical wound site is clean and intact. LOUISA drain is draining approximately 50 mL of serosanguineous material. On 03/19/2017 the patient remains intubated on a mechanical ventilator. He is still respiratory failure. He is still in shock. He remains assist-control mode of ventilation with essentially the same vent settings. He is still requiring pressors and levo fed is running somewhere between 8-10 mics. He is afebrile. Echocardiogram was done at the bedside and showed a preserved LV function without any signs of heart failure. Remains sedated on Diprivan. A sedation holiday will be given to him today and try to lower down agree off sedation if possible. Remains on broad-spectrum antibiotics. Surgical wound site is dry clean and intact. Continues to be an acute kidney injury on top of chronic renal failure. No major improvement in the renal function although the patient has become nonoliguric at this point. He is producing adequate amount of urine output. His been aggressively resuscitated IV fluids and colloids and he is in a positive fluid balance and he has demonstrated some edema both in the upper and lower extremities. He remains acidotic. A follow-up lactic acid level will be obtained. Remains nothing by mouth. No clearance from surgery for enteral feeding. No TPN initiated yet. The patient is seen again today 03/20/2017 in follow-up in the intensive care unit. He remains intubated on the mechanical ventilator and assist control mode with a rate of 24, tidal volume 450, FiO2 40% and a PEEP of 5. Morning blood gases reveal a P O2 170, pCO2 of 26 and a pH of 7.20. This was done on 40 % FiO2. He is currently off sedation. He is fluttering his eyelids open but not following any commands at this point. He remains on norepinephrine currently at 3 mcg/m. He is also on a 0.9 normal saline at 40 miles per hour. His chest x-ray does show overall stable findings, there is low lung volumes with small bilateral pleural effusions and basilar atelectasis. His sputum culture reveals methicillin-resistant Staphylococcus aureus. Blood culture reveals no growth to date. He remains on vancomycin and metronidazole. He did have 150 MLS returned from the gastric tube which remains to suction. He does remain acidotic with a bicarb of 9. Chloride is 123. Current BUN 83, creatinine 4.41. The patient is seen again today 03/21/2017 in follow-up in the intensive care unit. He remains intubated on mechanical ventilator at a rate of 24, tidal volume 450, FiO2 40% and a PEEP of 5. Morning blood gases reveal a pH of 7.30, pCO2 of 26, pO2 of 163. The patient does remain off sedation and does open his eyes and follows simple commands. He is quite weak. He is currently off pressors. His white count is improving currently 14.1. Hemoglobin stable at 8.5. Sodium 147, chloride 124, bicarb improved to 11. Creatinine remains high at 4.70. He had been initiated on a bicarbonate drip yesterday to improve his acidosis.. On 03/22/2017 the patient is being seen in follow-up. The patient was taken off sedation this morning and he was quite awake. Bit lethargic yet arousable. He was moving extremities and responding to simple commands. He was off pressors. Renal function remains impaired however the patient was producing adequate amount of urine output. An ongoing issue was his underlying metabolic acidosis. He was placed on a bicarb drip briefly however based on the absence of significant bicarbonate stock in the hospital day infusion was stopped. He is still on TPN for nutritional support. He is receiving acetate through the TPN. Currently is on a mechanical ventilator. His assist-control at the rate of 24, tidal volume 450, FiO2 of 40% and a PEEP of 5. Chest x-rays showing small bilateral pleural effusion and ET tube is in good location. The blood gases from earlier this morning showed a pH of 7.32 with a pCO2 of 24 and pO2 155. Based on this, check his weaning parameters and he had a rapid shallow breathing index of less than 50. I give the patient a spontaneous breathing trial for a total of 45 minutes and subsequent blood gases showed a pH of 7.35 with a pCO2 of 25 and pO2 of 165. I give the patient 2 A of bicarb for a bicarb level of 14. Subsequently I extubated the patient. Postextubation, he held himself well. No tachypnea. No respiratory distress. NG tube still in place. The patient's BUN is at 97 creatinine is at 4.5. He was given Lasix IV. He is in significant fluid overload including edema in the lower extremities in the scrotum. Antibiotic coverage includes a combination of Zosyn , daptomycin and Diflucan. Sputum at shown MRSA. 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 Upon subsequent follow-up, daptomycin was discontinued and the patient was switched to vancomycin. On 03/23/2017 the patient is being seen in follow-up. The patient was successfully extubated yesterday and currently is on oxygen at room air. Pulse ox is above 90%. He has an MRSA in the sputum which is probably a colonizer. He is still on broad-spectrum antibiotics. The surgical wound site is clean. Bowel sounds are absent. He remains on TPN for nutritional support. He is bicarb level is gradually improving it's up to 16. He still has extensive edema both in upper and lower extremities and he also edema in his scrotum. I started him on Lasix 40 mg every 12 hours and he is producing approximately 3 L of urine output. Nevertheless, that fluid balance remains positive. He is on a combination of vancomycin, Zosyn and Diflucan for now. He is on TPN for nutritional support. He is on insulin drip at 8 units an hour. He is having some purulent drainage from the LOUISA drain and this was noted this morning. The material will be sent for culture. Afebrile. Surgeries on the case. Awake yet lethargic. Comfortable. On 03/24/2017, patient remains off mechanical ventilation, he was eventually extubated 2 days ago, and he is on room air. Remains on broad-spectrum antibiotics, surgical wound seems to be relatively clean, bowel sounds remain absent, patient is presently on TPN for nutritional support. Continues to have extensive edema in upper or lower extremities and lower extremities and in the scrotal area. Remains on diuretics with good and excellent urine output. Patient is on vancomycin and Zosyn and Diflucan. He is also on insulin drip. WBC count is 15.0 hemoglobin is 8.5. BUN is 105 creatinine is down to 3.71 and bicarb is 19. On 03/25/2017, patient seems to be doing better, he seems to be dehydrated,/ intravascularly depleted, but significant amount of swelling noted in his lower extremities and in the scrotal area. Lips are extremely dry. Renal functioning continues to improve, but still significantly abnormal, hence I will go ahead and cut down on diuretics today. Patient seems to be appropriate , in no distress, hemodynamically stable, afebrile. Patient is on room air with O2 sat of 97%, and his blood pressure is 105/51. BUN is 115 creatinine is down to 3.50. Hemoglobin is 8.3 with WBC count of 15.8. Latex are normal. Objective - Vital Signs Vital signs: Vital Signs Temp 97.9 F 03/25/17 08:00 Pulse 94 03/25/17 09:00 Resp 23 03/25/17 09:00 BP 105/51 03/25/17 09:00 Pulse Ox 97 03/25/17 09:00 Intake & Output 03/24/17 03/25/17 03/25/17 18:59 06:59 18:59 Intake Total 3215.662 7560.490 767.435 Output Total 1575 1640 600 Balance -195.743 237.490 167.435 Weight 93.6 kg 94.1 kg Intake: IV 770 410.0 760 Dextrose 5% in Water 1, 620 360 60 000 ml @ 60 mls/hr IV . [id number] [facility] Rx#:[id number] Fluconazole in NaCl Iso- 100 50 Osm 100mg in Saline 1 50ml.bag @50mls/hr IVPB Daily Mvi, Adult No.4 with Vit 400 K 10 ml Trace (Conc-1Ml/ Dose) 1 ml Parenteral Electrolytes 20 ml Potassium Acetate 20 meq In Amino Acid 5%-D15w 1, 000 ml @ 100 mls/hr IV . BY DURATION [facility] Rx#: [id number] Piperacillin-Tazobactam 3 50 50.0 50 .375 gm In Dextrose/Water 1 50ml.bag @ 12.5 mls/hr IVPB Q12HR [facility] Rx#: [id number] Potassium Chloride 10 meq 200 In Water For Injection 1 100ml.bag @ 100 mls/hr IVPB Q1H [facility] Rx#: [id number] Intake, IV Titration 372.369 5108.490 7.435 Amount Fat Emulsion 20% 250 ml 189 In Empty Bag 1 bag @ 21 mls/hr IV DAILY@1400 [facility] Rx#:[id number] Insulin Regular 100 unit 29.257 78.490 7.435 In Sodium Chloride 0.9% 100 ml @ Per Protocol IV .Q0M [facility] Rx#:[id number] Magnesium Sulfate-D5w Pmx 100 1 gm In Dextrose/Water 1 100ml.bag @ 100 mls/hr IVPB Q1H [facility] Rx#: [id number] Mvi, Adult No.4 with Vit 30 1100 K 10 ml Trace (Conc-1Ml/ Dose) 1 ml Parenteral Electrolytes 20 ml Potassium Acetate 20 meq In Amino Acid 5%-D15w 1, 000 ml @ 100 mls/hr IV . BY DURATION [facility] Rx#: [id number] Potassium Chloride 10 meq 100 In Water For Injection 1 100ml.bag @ 100 mls/hr IVPB Q1H [facility] Rx#: [id number] Potassium Chloride 20 meq 50 In Water For Injection 1 100ml.bag @ 50 mls/hr IVPB ONCE [facility] Rx#: [id number] Potassium Chloride 20 meq 100 In Water For Injection 1 100ml.bag @ 50 mls/hr IVPB ONCE [facility] Rx#: [id number] Sodium Phosphate 10 mmol 50 In Sodium Chloride 0.9% 100 ml @ 50 mls/hr IVPB Q2H [facility] Rx#:[id number] Vancomycin 1,500 mg In 250 Dextrose 5% in Water 250 ml @ 125 mls/hr IVPB ONCE [facility] Rx#:[id number] Output: Drainage 90 Right Lower Abdomen 90 Urine 1485 1640 600 Stool 0 Other: Voiding Method Indwelling Catheter Indwelling Catheter Indwelling Catheter ABP, PAP, CO, CI - Last Documented Arterial Blood Pressure 146/54 - Exam Physical Exam: Revealed a 66-year-old white male, pale looking, in no distress. HEENT:[Neck is supple.] [No neck masses.] [No thyromegaly.] [No JVD.] Mucous membranes seem to be extremely dry. Chest: [Diminished breath sounds at the bases no crackles or rhonchi or wheezes. ] Cardiac Exam: [Normal S1 and S2, no S3 gallop, no murmur.] Abdomen: [Postsurgical, Soft, likely tender to palpation,, no megaly, no rebound, no guarding, managed bowel sounds. Surgical incision seems to be clean , drains were noted. Cultures from the LOUISA drain is negative so far. Extremities: [3+ bipedal edema, no clubbing, no cyanosis.] Neurological Exam: Generally weak and frail, but no focal neurologic deficit is noted. - Labs CBC & Chem 7: 03/25/17 05:46 03/25/17 05:46 Labs: Abnormal Lab Results - Last 24 Hours (Table) 03/24/17 03/24/17 03/24/17 Range/Units 11:14 12:54 14:22 WBC (3.8-10.6) k/uL RBC (4.30-5.90) m/uL Hgb (13.0-17.5) gm/dL Hct (39.0-53.0) % RDW (11.5-15.5) % Neutrophils # (1.3-7.7) k/uL Chloride (98-107) mmol/L Carbon Dioxide (22-30) mmol/L BUN (9-20) mg/dL Creatinine (0.66-1.25) mg/dL Glucose (74-99) mg/dL POC Glucose (mg/dL) 185 H 200 H 229 H (75-99) mg/dL Calcium (8.4-10.2) mg/dL Albumin (3.5-5.0) g/dL 03/24/17 03/24/17 03/24/17 Range/Units 15:48 16:55 17:37 WBC (3.8-10.6) k/uL RBC (4.30-5.90) m/uL Hgb (13.0-17.5) gm/dL Hct (39.0-53.0) % RDW (11.5-15.5) % Neutrophils # (1.3-7.7) k/uL Chloride (98-107) mmol/L Carbon Dioxide (22-30) mmol/L BUN (9-20) mg/dL Creatinine (0.66-1.25) mg/dL Glucose (74-99) mg/dL POC Glucose (mg/dL) 250 H 258 H 259 H (75-99) mg/dL Calcium (8.4-10.2) mg/dL Albumin (3.5-5.0) g/dL 03/24/17 03/24/17 03/24/17 Range/Units 18:47 20:17 21:03 WBC (3.8-10.6) k/uL RBC (4.30-5.90) m/uL Hgb (13.0-17.5) gm/dL Hct (39.0-53.0) % RDW (11.5-15.5) % Neutrophils # (1.3-7.7) k/uL Chloride (98-107) mmol/L Carbon Dioxide (22-30) mmol/L BUN (9-20) mg/dL Creatinine (0.66-1.25) mg/dL Glucose (74-99) mg/dL POC Glucose (mg/dL) 253 H 243 H 236 H (75-99) mg/dL Calcium (8.4-10.2) mg/dL Albumin (3.5-5.0) g/dL 03/24/17 03/24/17 03/25/17 Range/Units 22:07 22:51 00:03 WBC (3.8-10.6) k/uL RBC (4.30-5.90) m/uL Hgb (13.0-17.5) gm/dL Hct (39.0-53.0) % RDW (11.5-15.5) % Neutrophils # (1.3-7.7) k/uL Chloride (98-107) mmol/L Carbon Dioxide (22-30) mmol/L BUN (9-20) mg/dL Creatinine (0.66-1.25) mg/dL Glucose (74-99) mg/dL POC Glucose (mg/dL) 230 H 226 H 233 H (75-99) mg/dL Calcium (8.4-10.2) mg/dL Albumin (3.5-5.0) g/dL 03/25/17 03/25/17 03/25/17 Range/Units 00:54 01:54 03:00 WBC (3.8-10.6) k/uL RBC (4.30-5.90) m/uL Hgb (13.0-17.5) gm/dL Hct (39.0-53.0) % RDW (11.5-15.5) % Neutrophils # (1.3-7.7) k/uL Chloride (98-107) mmol/L Carbon Dioxide (22-30) mmol/L BUN (9-20) mg/dL Creatinine (0.66-1.25) mg/dL Glucose (74-99) mg/dL POC Glucose (mg/dL) 209 H 206 H 197 H (75-99) mg/dL Calcium (8.4-10.2) mg/dL Albumin (3.5-5.0) g/dL 03/25/17 03/25/17 03/25/17 Range/Units 03:52 05:13 05:46 WBC (3.8-10.6) k/uL RBC (4.30-5.90) m/uL Hgb (13.0-17.5) gm/dL Hct (39.0-53.0) % RDW (11.5-15.5) % Neutrophils # (1.3-7.7) k/uL Chloride 113 H (98-107) mmol/L Carbon Dioxide 19 L (22-30) mmol/L BUN 115 H* (9-20) mg/dL Creatinine 3.50 H (0.66-1.25) mg/dL Glucose 138 H (74-99) mg/dL POC Glucose (mg/dL) 166 H 138 H (75-99) mg/dL Calcium 8.1 L (8.4-10.2) mg/dL Albumin 1.9 L (3.5-5.0) g/dL 03/25/17 03/25/17 03/25/17 Range/Units 05:46 05:54 07:01 WBC 15.8 H (3.8-10.6) k/uL RBC 2.89 L (4.30-5.90) m/uL Hgb 8.3 L (13.0-17.5) gm/dL Hct 26.3 L (39.0-53.0) % RDW 16.0 H (11.5-15.5) % Neutrophils # 12.7 H (1.3-7.7) k/uL Chloride (98-107) mmol/L Carbon Dioxide (22-30) mmol/L BUN (9-20) mg/dL Creatinine (0.66-1.25) mg/dL Glucose (74-99) mg/dL POC Glucose (mg/dL) 145 H 129 H (75-99) mg/dL Calcium (8.4-10.2) mg/dL Albumin (3.5-5.0) g/dL 03/25/17 03/25/17 03/25/17 Range/Units 08:14 09:02 09:58 WBC (3.8-10.6) k/uL RBC (4.30-5.90) m/uL Hgb (13.0-17.5) gm/dL Hct (39.0-53.0) % RDW (11.5-15.5) % Neutrophils # (1.3-7.7) k/uL Chloride (98-107) mmol/L Carbon Dioxide (22-30) mmol/L BUN (9-20) mg/dL Creatinine (0.66-1.25) mg/dL Glucose (74-99) mg/dL POC Glucose (mg/dL) 126 H 129 H 151 H (75-99) mg/dL Calcium (8.4-10.2) mg/dL Albumin (3.5-5.0) g/dL Microbiology - Last 24 Hours (Table) 03/23/17 08:00 Gram Stain - Preliminary Peritoneal Fluid Body Fluid Culture - Preliminary Assessment and Plan Plan: 1 acute abdomen status post extra laparotomy and repair of a perforated peptic ulcer a modified Don patch and open cholecystectomy. Patient is postop day # 8 2 shock secondary to septic in nature secondary to intra-abdominal sepsis complicated by perforated peptic ulcer and cholecystitis. Patient has been stabilized. The patient is currently off pressors. Antibiotic coverage including a combination of vancomycin, Zosyn and Diflucan. Nevertheless, on today's evaluation the patient is having some purulent drainage from the LOUISA drain. Gram stain and cultures are negative so far. If positive, will consider CT of the abdomen and pelvis. To rule out intra-abdominal abscess. 3 hypotension secondary to above , recovered 4 acute respiratory failure, a complication of septic shock. Extubated without any major difficulties. 5 acute kidney injury on top of chronic renal failure. The patient has stage II kidney disease at baseline due to diabetic nephropathy. Acute kidney injury related to hypotension/sepsis due to ATN. The patient remains in acute kidney injury. The patient is nonoliguric. Renal function is gradually improving. However I will go ahead and cut down on the amount of diuretics, Lasix will be cut down to 40 mg IV push daily instead of twice a day. 6 acute lactic acidosis, recovered 7 diabetes mellitus with poorly controlled blood sugar secondary to sepsis currently on insulin drip for blood sugar control. 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 17 MRSA in the sputum, likely a colonizer. Recommendation: Continue present supportive care measures, continue antibiotics , cut down on the diuretics, monitor labs on a daily basis, patient will be kept in the ICU, not quite ready for transfer. too many issues seem to be quite concerning to me, hence we will continue to evaluate and monitor in the ICU closely. Time with Patient: Less than 30
[2017-03-25 11:21] LABS: Glucose,Whole Blood 162 mg/dL (75-99)
--- NOTE | 2017-03-25 11:47 | P.PN ---
Subjective Patient is seen in follow-up for acute renal failure and metabolic acidosis. Renal function is improved with creatinine at 3.5 today. Patient is maintained on TPN. He was extubated 03/22. Patient presented with a perforated peptic ulcer and underwent exploratory laparotomy and open cholecystectomy this admission. Maintained on Lasix 40 mg IV twice daily. He is nonoliguric. Patient does have underlying chronic kidney disease with creatinine in the range of 2.4-2.5 in July 2016. Off pressors. Vital signs are stable. General: Now extubated. OGT noted. HEENT: Head exam is unremarkable. Neck is without jugular venous distension. LUNGS: Scattered rhonchi. Breath sounds decreased. HEART: Rate and Rhythm are regular. First and second heart sounds normal. No murmurs, rubs or gallops. ABDOMEN: Bowel sounds present. EXTREMITITES: 1+ edema. Left BKA noted. Objective - Vital Signs Vital signs: Vital Signs Temp 97.9 F 03/25/17 08:00 Pulse 92 03/25/17 11:40 Resp 20 03/25/17 11:00 BP 101/57 03/25/17 11:00 Pulse Ox 97 03/25/17 11:00 Intake & Output 03/24/17 03/25/17 03/25/17 18:59 06:59 18:59 Intake Total 9527.501 3160.490 767.435 Output Total 1575 1640 600 Balance -195.743 237.490 167.435 Weight 93.6 kg 94.1 kg Intake: IV 770 410.0 760 Dextrose 5% in Water 1, 620 360 60 000 ml @ 60 mls/hr IV . [id number] [facility] Rx#:[id number] Fluconazole in NaCl Iso- 100 50 Osm 100mg in Saline 1 50ml.bag @50mls/hr IVPB Daily Mvi, Adult No.4 with Vit 400 K 10 ml Trace (Conc-1Ml/ Dose) 1 ml Parenteral Electrolytes 20 ml Potassium Acetate 20 meq In Amino Acid 5%-D15w 1, 000 ml @ 100 mls/hr IV . BY DURATION [facility] Rx#: [id number] Piperacillin-Tazobactam 3 50 50.0 50 .375 gm In Dextrose/Water 1 50ml.bag @ 12.5 mls/hr IVPB Q12HR [facility] Rx#: [id number] Potassium Chloride 10 meq 200 In Water For Injection 1 100ml.bag @ 100 mls/hr IVPB Q1H [facility] Rx#: [id number] Intake, IV Titration 016.225 9569.490 7.435 Amount Fat Emulsion 20% 250 ml 189 In Empty Bag 1 bag @ 21 mls/hr IV DAILY@1400 [facility] Rx#:[id number] Insulin Regular 100 unit 29.257 78.490 7.435 In Sodium Chloride 0.9% 100 ml @ Per Protocol IV .Q0M [facility] Rx#:[id number] Magnesium Sulfate-D5w Pmx 100 1 gm In Dextrose/Water 1 100ml.bag @ 100 mls/hr IVPB Q1H [facility] Rx#: [id number] Mvi, Adult No.4 with Vit 30 1100 K 10 ml Trace (Conc-1Ml/ Dose) 1 ml Parenteral Electrolytes 20 ml Potassium Acetate 20 meq In Amino Acid 5%-D15w 1, 000 ml @ 100 mls/hr IV . BY DURATION [facility] Rx#: [id number] Potassium Chloride 10 meq 100 In Water For Injection 1 100ml.bag @ 100 mls/hr IVPB Q1H [facility] Rx#: [id number] Potassium Chloride 20 meq 50 In Water For Injection 1 100ml.bag @ 50 mls/hr IVPB ONCE ONE Rx#: [id number] Potassium Chloride 20 meq 100 In Water For Injection 1 100ml.bag @ 50 mls/hr IVPB ONCE ONE Rx#: [id number] Sodium Phosphate 10 mmol 50 In Sodium Chloride 0.9% 100 ml @ 50 mls/hr IVPB Q2H [facility] Rx#:[id number] Vancomycin 1,500 mg In 250 Dextrose 5% in Water 250 ml @ 125 mls/hr IVPB ONCE ONE Rx#:[id number] Output: Drainage 90 Right Lower Abdomen 90 Urine 1485 1640 600 Stool 0 Other: Voiding Method Indwelling Catheter Indwelling Catheter Indwelling Catheter ABP, PAP, CO, CI - Last Documented Arterial Blood Pressure 146/54 - Labs CBC & Chem 7: 03/25/17 05:46 03/25/17 05:46 Labs: Abnormal Lab Results - Last 24 Hours (Table) 03/24/17 03/24/17 03/24/17 Range/Units 12:54 14:22 15:48 WBC (3.8-10.6) k/uL RBC (4.30-5.90) m/uL Hgb (13.0-17.5) gm/dL Hct (39.0-53.0) % RDW (11.5-15.5) % Neutrophils # (1.3-7.7) k/uL Chloride (98-107) mmol/L Carbon Dioxide (22-30) mmol/L BUN (9-20) mg/dL Creatinine (0.66-1.25) mg/dL Glucose (74-99) mg/dL POC Glucose (mg/dL) 200 H 229 H 250 H (75-99) mg/dL Calcium (8.4-10.2) mg/dL Albumin (3.5-5.0) g/dL 03/24/17 03/24/17 03/24/17 Range/Units 16:55 17:37 18:47 WBC (3.8-10.6) k/uL RBC (4.30-5.90) m/uL Hgb (13.0-17.5) gm/dL Hct (39.0-53.0) % RDW (11.5-15.5) % Neutrophils # (1.3-7.7) k/uL Chloride (98-107) mmol/L Carbon Dioxide (22-30) mmol/L BUN (9-20) mg/dL Creatinine (0.66-1.25) mg/dL Glucose (74-99) mg/dL POC Glucose (mg/dL) 258 H 259 H 253 H (75-99) mg/dL Calcium (8.4-10.2) mg/dL Albumin (3.5-5.0) g/dL 03/24/17 03/24/17 03/24/17 Range/Units 20:17 21:03 22:07 WBC (3.8-10.6) k/uL RBC (4.30-5.90) m/uL Hgb (13.0-17.5) gm/dL Hct (39.0-53.0) % RDW (11.5-15.5) % Neutrophils # (1.3-7.7) k/uL Chloride (98-107) mmol/L Carbon Dioxide (22-30) mmol/L BUN (9-20) mg/dL Creatinine (0.66-1.25) mg/dL Glucose (74-99) mg/dL POC Glucose (mg/dL) 243 H 236 H 230 H (75-99) mg/dL Calcium (8.4-10.2) mg/dL Albumin (3.5-5.0) g/dL 03/24/17 03/25/17 03/25/17 Range/Units 22:51 00:03 00:54 WBC (3.8-10.6) k/uL RBC (4.30-5.90) m/uL Hgb (13.0-17.5) gm/dL Hct (39.0-53.0) % RDW (11.5-15.5) % Neutrophils # (1.3-7.7) k/uL Chloride (98-107) mmol/L Carbon Dioxide (22-30) mmol/L BUN (9-20) mg/dL Creatinine (0.66-1.25) mg/dL Glucose (74-99) mg/dL POC Glucose (mg/dL) 226 H 233 H 209 H (75-99) mg/dL Calcium (8.4-10.2) mg/dL Albumin (3.5-5.0) g/dL 03/25/17 03/25/17 03/25/17 Range/Units 01:54 03:00 03:52 WBC (3.8-10.6) k/uL RBC (4.30-5.90) m/uL Hgb (13.0-17.5) gm/dL Hct (39.0-53.0) % RDW (11.5-15.5) % Neutrophils # (1.3-7.7) k/uL Chloride (98-107) mmol/L Carbon Dioxide (22-30) mmol/L BUN (9-20) mg/dL Creatinine (0.66-1.25) mg/dL Glucose (74-99) mg/dL POC Glucose (mg/dL) 206 H 197 H 166 H (75-99) mg/dL Calcium (8.4-10.2) mg/dL Albumin (3.5-5.0) g/dL 03/25/17 03/25/17 03/25/17 Range/Units 05:13 05:46 05:46 WBC 15.8 H (3.8-10.6) k/uL RBC 2.89 L (4.30-5.90) m/uL Hgb 8.3 L (13.0-17.5) gm/dL Hct 26.3 L (39.0-53.0) % RDW 16.0 H (11.5-15.5) % Neutrophils # 12.7 H (1.3-7.7) k/uL Chloride 113 H (98-107) mmol/L Carbon Dioxide 19 L (22-30) mmol/L BUN 115 H* (9-20) mg/dL Creatinine 3.50 H (0.66-1.25) mg/dL Glucose 138 H (74-99) mg/dL POC Glucose (mg/dL) 138 H (75-99) mg/dL Calcium 8.1 L (8.4-10.2) mg/dL Albumin 1.9 L (3.5-5.0) g/dL 03/25/17 03/25/17 03/25/17 Range/Units 05:54 07:01 08:14 WBC (3.8-10.6) k/uL RBC (4.30-5.90) m/uL Hgb (13.0-17.5) gm/dL Hct (39.0-53.0) % RDW (11.5-15.5) % Neutrophils # (1.3-7.7) k/uL Chloride (98-107) mmol/L Carbon Dioxide (22-30) mmol/L BUN (9-20) mg/dL Creatinine (0.66-1.25) mg/dL Glucose (74-99) mg/dL POC Glucose (mg/dL) 145 H 129 H 126 H (75-99) mg/dL Calcium (8.4-10.2) mg/dL Albumin (3.5-5.0) g/dL 03/25/17 03/25/17 03/25/17 Range/Units 09:02 09:58 11:20 WBC (3.8-10.6) k/uL RBC (4.30-5.90) m/uL Hgb (13.0-17.5) gm/dL Hct (39.0-53.0) % RDW (11.5-15.5) % Neutrophils # (1.3-7.7) k/uL Chloride (98-107) mmol/L Carbon Dioxide (22-30) mmol/L BUN (9-20) mg/dL Creatinine (0.66-1.25) mg/dL Glucose (74-99) mg/dL POC Glucose (mg/dL) 129 H 151 H 162 H (75-99) mg/dL Calcium (8.4-10.2) mg/dL Albumin (3.5-5.0) g/dL Microbiology - Last 24 Hours (Table) 03/23/17 08:00 Gram Stain - Preliminary Peritoneal Fluid Body Fluid Culture - Preliminary Assessment and Plan Plan: Assessment: #1. Nonoliguric acute kidney injury secondary to ischemic ATN secondary to hypotension and sepsis. Renal function improving. BUN elevated due to diuresis - not on steroids and no evidence of GI bleed. #2. Perforated peptic ulcer status post exploratory laparotomy and open cholecystectomy on March 16. #3. Metabolic acidosis with respiratory compensation secondary to acute kidney injury and IV fluids. Improving. #4. Hypotension secondary to sepsis. Off vasopressors. #5. Postoperative anemia. #6. Sepsis secondary to perforated ulcer and gangrenous cholecystitis. Sputum culture positive for MRSA. #7. 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 Etiology is likely diabetic kidney disease. #8. Hypernatremia secondary to diuresis and lack of oral water intake. Improved. #9. Hypokalemia secondary to poor nutritional status and renal potassium wasting. Magnesium replete. Plan: Agree with lowering lasix to 40 mg daily. Start oral sodium bicarbonate once able to tolerate oral medications. Maintain TPN - to reduce sodium and chloride content. Patient also receiving potassium acetate as needed. Antibiotics per infectious disease recommendations. Avoid nephrotoxic agents and hypotensive episodes. Monitor vancomycin levels. No urgent need for renal replacement therapy at this time. Check stool for occult blood.
[2017-03-25 12:32] LABS: Glucose,Whole Blood 184 mg/dL (75-99)
[2017-03-25 13:30] LABS: Glucose,Whole Blood 146 mg/dL (75-99)
[2017-03-25 14:11] LABS: Glucose,Whole Blood 144 mg/dL (75-99)
[2017-03-25 14:55] LABS: Glucose,Whole Blood 134 mg/dL (75-99)
[2017-03-25 16:10] LABS: Glucose,Whole Blood 150 mg/dL (75-99)
[2017-03-25 16:54] LABS: Glucose,Whole Blood 150 mg/dL (75-99)
--- NOTE | 2017-03-25 17:51 | P.PN ---
Subjective Principal diagnosis: Perforated peptic ulcer Patient appears to be doing much better. Vital signs of been stable. White blood cell count is 15.8. Hemoglobin 8.3. Creatinine is 3.5. Denies abdominal pain. LOUISA drain remained serosanguineous. Nasogastric tube remains in place and is bilious. Objective - Vital Signs Vital signs: Vital Signs Temp 97.7 F 03/25/17 16:00 Pulse 100 03/25/17 16:00 Resp 29 H 03/25/17 16:00 BP 116/55 03/25/17 16:00 Pulse Ox 99 03/25/17 16:00 Intake & Output 03/24/17 03/25/17 03/25/17 18:59 06:59 18:59 Intake Total 3944.842 8567.490 1377.445 Output Total 1575 1640 1310 Balance -195.743 237.490 67.445 Weight 93.6 kg 94.1 kg Intake: IV 770 410.0 1360 Dextrose 5% in Water 1, 620 360 60 000 ml @ 60 mls/hr IV . [id number] Rx#:[id number] Fluconazole in NaCl Iso- 100 50 Osm 100mg in Saline 1 50ml.bag @50mls/hr IVPB Daily Mvi, Adult No.4 with Vit 1000 K 10 ml Trace (Conc-1Ml/ Dose) 1 ml Parenteral Electrolytes 20 ml Potassium Acetate 20 meq In Amino Acid 5%-D15w 1, 000 ml @ 100 mls/hr IV . BY DURATION [facility] Rx#: [id number] Piperacillin-Tazobactam 3 50 50.0 50 .375 gm In Dextrose/Water 1 50ml.bag @ 12.5 mls/hr IVPB Q12HR [facility] Rx#: [id number] Potassium Chloride 10 meq 200 In Water For Injection 1 100ml.bag @ 100 mls/hr IVPB Q1H [facility] Rx#: [id number] Intake, IV Titration 413.237 9344.490 17.445 Amount Fat Emulsion 20% 250 ml 189 In Empty Bag 1 bag @ 21 mls/hr IV DAILY@1400 [facility] Rx#:[id number] Insulin Regular 100 unit 29.257 78.490 17.445 In Sodium Chloride 0.9% 100 ml @ Per Protocol IV .Q0M [facility] Rx#:[id number] Magnesium Sulfate-D5w Pmx 100 1 gm In Dextrose/Water 1 100ml.bag @ 100 mls/hr IVPB Q1H [facility] Rx#: [id number] Mvi, Adult No.4 with Vit 30 1100 K 10 ml Trace (Conc-1Ml/ Dose) 1 ml Parenteral Electrolytes 20 ml Potassium Acetate 20 meq In Amino Acid 5%-D15w 1, 000 ml @ 100 mls/hr IV . BY DURATION [facility] Rx#: [id number] Potassium Chloride 10 meq 100 In Water For Injection 1 100ml.bag @ 100 mls/hr IVPB Q1H [facility] Rx#: [id number] Potassium Chloride 20 meq 50 In Water For Injection 1 100ml.bag @ 50 mls/hr IVPB ONCE ONE Rx#: [id number] Potassium Chloride 20 meq 100 In Water For Injection 1 100ml.bag @ 50 mls/hr IVPB ONCE ONE Rx#: [id number] Sodium Phosphate 10 mmol 50 In Sodium Chloride 0.9% 100 ml @ 50 mls/hr IVPB Q2H [facility] Rx#:[id number] Vancomycin 1,500 mg In 250 Dextrose 5% in Water 250 ml @ 125 mls/hr IVPB ONCE ONE Rx#:[id number] Output: Drainage 90 Right Lower Abdomen 90 Urine 1485 1640 1310 Stool 0 Other: Voiding Method Indwelling Catheter Indwelling Catheter Indwelling Catheter ABP, PAP, CO, CI - Last Documented Arterial Blood Pressure 146/54 - Exam Abdomen: Soft, edematous, nontender, incision and wounds clean - Labs CBC & Chem 7: 03/25/17 05:46 03/25/17 05:46 Labs: Abnormal Lab Results - Last 24 Hours (Table) 03/24/17 03/24/17 03/24/17 Range/Units 18:47 20:17 21:03 WBC (3.8-10.6) k/uL RBC (4.30-5.90) m/uL Hgb (13.0-17.5) gm/dL Hct (39.0-53.0) % RDW (11.5-15.5) % Neutrophils # (1.3-7.7) k/uL Chloride (98-107) mmol/L Carbon Dioxide (22-30) mmol/L BUN (9-20) mg/dL Creatinine (0.66-1.25) mg/dL Glucose (74-99) mg/dL POC Glucose (mg/dL) 253 H 243 H 236 H (75-99) mg/dL Calcium (8.4-10.2) mg/dL Albumin (3.5-5.0) g/dL 03/24/17 03/24/17 03/25/17 Range/Units 22:07 22:51 00:03 WBC (3.8-10.6) k/uL RBC (4.30-5.90) m/uL Hgb (13.0-17.5) gm/dL Hct (39.0-53.0) % RDW (11.5-15.5) % Neutrophils # (1.3-7.7) k/uL Chloride (98-107) mmol/L Carbon Dioxide (22-30) mmol/L BUN (9-20) mg/dL Creatinine (0.66-1.25) mg/dL Glucose (74-99) mg/dL POC Glucose (mg/dL) 230 H 226 H 233 H (75-99) mg/dL Calcium (8.4-10.2) mg/dL Albumin (3.5-5.0) g/dL 03/25/17 03/25/17 03/25/17 Range/Units 00:54 01:54 03:00 WBC (3.8-10.6) k/uL RBC (4.30-5.90) m/uL Hgb (13.0-17.5) gm/dL Hct (39.0-53.0) % RDW (11.5-15.5) % Neutrophils # (1.3-7.7) k/uL Chloride (98-107) mmol/L Carbon Dioxide (22-30) mmol/L BUN (9-20) mg/dL Creatinine (0.66-1.25) mg/dL Glucose (74-99) mg/dL POC Glucose (mg/dL) 209 H 206 H 197 H (75-99) mg/dL Calcium (8.4-10.2) mg/dL Albumin (3.5-5.0) g/dL 03/25/17 03/25/17 03/25/17 Range/Units 03:52 05:13 05:46 WBC (3.8-10.6) k/uL RBC (4.30-5.90) m/uL Hgb (13.0-17.5) gm/dL Hct (39.0-53.0) % RDW (11.5-15.5) % Neutrophils # (1.3-7.7) k/uL Chloride 113 H (98-107) mmol/L Carbon Dioxide 19 L (22-30) mmol/L BUN 115 H* (9-20) mg/dL Creatinine 3.50 H (0.66-1.25) mg/dL Glucose 138 H (74-99) mg/dL POC Glucose (mg/dL) 166 H 138 H (75-99) mg/dL Calcium 8.1 L (8.4-10.2) mg/dL Albumin 1.9 L (3.5-5.0) g/dL 03/25/17 03/25/17 03/25/17 Range/Units 05:46 05:54 07:01 WBC 15.8 H (3.8-10.6) k/uL RBC 2.89 L (4.30-5.90) m/uL Hgb 8.3 L (13.0-17.5) gm/dL Hct 26.3 L (39.0-53.0) % RDW 16.0 H (11.5-15.5) % Neutrophils # 12.7 H (1.3-7.7) k/uL Chloride (98-107) mmol/L Carbon Dioxide (22-30) mmol/L BUN (9-20) mg/dL Creatinine (0.66-1.25) mg/dL Glucose (74-99) mg/dL POC Glucose (mg/dL) 145 H 129 H (75-99) mg/dL Calcium (8.4-10.2) mg/dL Albumin (3.5-5.0) g/dL 03/25/17 03/25/17 03/25/17 Range/Units 08:14 09:02 09:58 WBC (3.8-10.6) k/uL RBC (4.30-5.90) m/uL Hgb (13.0-17.5) gm/dL Hct (39.0-53.0) % RDW (11.5-15.5) % Neutrophils # (1.3-7.7) k/uL Chloride (98-107) mmol/L Carbon Dioxide (22-30) mmol/L BUN (9-20) mg/dL Creatinine (0.66-1.25) mg/dL Glucose (74-99) mg/dL POC Glucose (mg/dL) 126 H 129 H 151 H (75-99) mg/dL Calcium (8.4-10.2) mg/dL Albumin (3.5-5.0) g/dL 03/25/17 03/25/17 03/25/17 Range/Units 11:20 12:30 13:29 WBC (3.8-10.6) k/uL RBC (4.30-5.90) m/uL Hgb (13.0-17.5) gm/dL Hct (39.0-53.0) % RDW (11.5-15.5) % Neutrophils # (1.3-7.7) k/uL Chloride (98-107) mmol/L Carbon Dioxide (22-30) mmol/L BUN (9-20) mg/dL Creatinine (0.66-1.25) mg/dL Glucose (74-99) mg/dL POC Glucose (mg/dL) 162 H 184 H 146 H (75-99) mg/dL Calcium (8.4-10.2) mg/dL Albumin (3.5-5.0) g/dL 03/25/17 03/25/17 03/25/17 Range/Units 14:11 14:54 16:09 WBC (3.8-10.6) k/uL RBC (4.30-5.90) m/uL Hgb (13.0-17.5) gm/dL Hct (39.0-53.0) % RDW (11.5-15.5) % Neutrophils # (1.3-7.7) k/uL Chloride (98-107) mmol/L Carbon Dioxide (22-30) mmol/L BUN (9-20) mg/dL Creatinine (0.66-1.25) mg/dL Glucose (74-99) mg/dL POC Glucose (mg/dL) 144 H 134 H 150 H (75-99) mg/dL Calcium (8.4-10.2) mg/dL Albumin (3.5-5.0) g/dL 03/25/17 Range/Units 16:52 WBC (3.8-10.6) k/uL RBC (4.30-5.90) m/uL Hgb (13.0-17.5) gm/dL Hct (39.0-53.0) % RDW (11.5-15.5) % Neutrophils # (1.3-7.7) k/uL Chloride (98-107) mmol/L Carbon Dioxide (22-30) mmol/L BUN (9-20) mg/dL Creatinine (0.66-1.25) mg/dL Glucose (74-99) mg/dL POC Glucose (mg/dL) 150 H (75-99) mg/dL Calcium (8.4-10.2) mg/dL Albumin (3.5-5.0) g/dL Microbiology - Last 24 Hours (Table) 03/23/17 08:00 Gram Stain - Preliminary Peritoneal Fluid Body Fluid Culture - Preliminary Assessment and Plan (1) Free intraperitoneal air Narrative/Plan: Will check upper GI tomorrow through the nasogastric tube. Hopefully begin diet following that. Continue antiacid and antibiotic therapy. Status: Acute
[2017-03-25 17:52] LABS: Glucose,Whole Blood 165 mg/dL (75-99)
[2017-03-25 18:24] LABS: Glucose,Whole Blood 168 mg/dL (75-99)
[2017-03-25] MEDS: FAT EMULSION 20% 250 ML in EMPTY BAG 1 BAG IV SCH (18:26)
[2017-03-25 19:09] LABS: Glucose,Whole Blood 165 mg/dL (75-99)
[2017-03-25 19:59] LABS: Glucose,Whole Blood 149 mg/dL (75-99)
[2017-03-25 20:54] LABS: Glucose,Whole Blood 132 mg/dL (75-99)
--- NOTE | 2017-03-25 21:20 | P.PN ---
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 [facility] most recently under the care of Dr. Gordon and discharged in August 2016 after a dehiscence of the right below the knee wound healed. Patient presented to [facility] emergency center on March 16 with generalized weakness and abdominal pain for at least couple days up to 1 week with concerns for constipation and was taking laxatives with no improvement. Patient also had decreased appetite and pain was gradually worsening. There was nausea without vomiting. Chest x-ray showed pneumoperitoneum and left basilar atelectasis with no heart failure. Abdominal films also showed pneumoperitoneum. CAT scan of the abdomen and pelvis without contrast and was found have a large pneumoperitoneum, large ascites, large nonobstructive right renal calculi and possible gallbladder thickening with concern for gangrenous gallbladder. Patient was taken to the OR by Dr. Wiley for exploratory laparotomy with repair of perforated peptic ulcer and open cholecystectomy. Patient was then transferred to the intensive care unit where he remains intubated and on mechanical ventilation. Patient presented with severe sepsis and septic shock status post 7 1/2 liters of fluid currently on levo at 20 mics. He did not have a urine output for the day shift thus far. O2 needs have decreased however. He is currently on IV antimicrobials in the form of fluconazole, Flagyl and Zosyn. Blood cultures status received and urine culture status received. C. difficile toxin was negative. Patient is noted to have a stage II decubitus ulcer on his buttocks that was present on admission. There has improved. He has now been extubated. Weaned vasopressor therapy. Responded to fluids. Urine output is started to improve. Still has acute renal failure. Patient is awake and comfortable. Objective - Vital Signs Vital signs: Vital Signs Temp 97.7 F 03/25/17 16:00 Pulse 90 03/25/17 20:00 Resp 21 03/25/17 20:00 BP 127/62 03/25/17 20:00 Pulse Ox 96 03/25/17 20:00 Intake & Output 03/25/17 03/25/17 03/26/17 06:59 18:59 06:59 Intake Total 7778.550 4174.445 394.376 Output Total 1640 1370 410 Balance 237.490 128.445 -15.624 Weight 94.1 kg Intake: IV 410.0 1481 363 Dextrose 5% in Water 1, 360 60 000 ml @ 60 mls/hr IV . [id number] ONE Rx#:[id number] Fat Emulsion 20% 250 ml 21 63 In Empty Bag 1 bag @ 21 mls/hr IV DAILY@1400 [facility] Rx#:[id number] Fluconazole in NaCl Iso- 50 Osm 100mg in Saline 1 50ml.bag @50mls/hr IVPB Daily Mvi, Adult No.4 with Vit 1100 300 K 10 ml Trace (Conc-1Ml/ Dose) 1 ml Parenteral Electrolytes 20 ml Potassium Acetate 20 meq In Amino Acid 5%-D15w 1, 000 ml @ 100 mls/hr IV . BY DURATION [facility] Rx#: [id number] Piperacillin-Tazobactam 3 50.0 50 .375 gm In Dextrose/Water 1 50ml.bag @ 12.5 mls/hr IVPB Q12HR [facility] Rx#: [id number] Potassium Chloride 10 meq 200 In Water For Injection 1 100ml.bag @ 100 mls/hr IVPB Q1H [facility] Rx#: [id number] Intake, IV Titration 1467.490 17.445 31.376 Amount Fat Emulsion 20% 250 ml 189 In Empty Bag 1 bag @ 21 mls/hr IV DAILY@1400 [facility] Rx#:[id number] Insulin Regular 100 unit 78.490 17.445 31.376 In Sodium Chloride 0.9% 100 ml @ Per Protocol IV .Q0M [facility] Rx#:[id number] Mvi, Adult No.4 with Vit 1100 K 10 ml Trace (Conc-1Ml/ Dose) 1 ml Parenteral Electrolytes 20 ml Potassium Acetate 20 meq In Amino Acid 5%-D15w 1, 000 ml @ 100 mls/hr IV . BY DURATION [facility] Rx#: [id number] Potassium Chloride 20 meq 100 In Water For Injection 1 100ml.bag @ 50 mls/hr IVPB ONCE ONE Rx#: [id number] Output: Urine 1640 1370 410 Stool 0 0 Other: Voiding Method Indwelling Catheter Indwelling Catheter Indwelling Catheter ABP, PAP, CO, CI - Last Documented Arterial Blood Pressure 146/54 - Exam Gen: This is an obese 66-year-old male. He is seen in the ICU, he has been extubated. Patient appears comfortable and in no acute distress. HEENT: Head is atraumatic, normocephalic. Oral ET and gastric tube in place. White coating noted on the tongue. Mucous membranes are slightly dry.. NECK: Supple. No JVD. No lymphadenopathy. Trachea midline. LUNGS: There is symmetrical air entry bilaterally. Coarse crackles are scattered the lung kraft. Subtly improved when he coughs. Scattered wheezes are also heard. HEART: Regular rate and rhythm. No murmur. Patient is tachycardic. ABDOMEN: Soft. Bowel sounds are not present. No masses. No tenderness. LOUISA drain to the right upper abdomen is draining serosanguineous fluid. Dressing to the right upper quadrant and midline are in place with no breakthrough drainage or bleeding. Castellaons catheter in place draining clear pinky urine. EXTREMITIES: No pedal edema to the left lower extremity. Patient has amputations of toes 2 through 5 on the left and a right below the knee amputation. All extremities are cool to the touch. No mottling noted. NEUROLOGICAL: Patient no longer sedated. Eyes are open. Seems comfortable. Denied pain. - Labs CBC & Chem 7: 03/25/17 05:46 03/25/17 05:46 Labs: Abnormal Lab Results - Last 24 Hours (Table) 03/24/17 03/24/17 03/25/17 Range/Units 22:07 22:51 00:03 WBC (3.8-10.6) k/uL RBC (4.30-5.90) m/uL Hgb (13.0-17.5) gm/dL Hct (39.0-53.0) % RDW (11.5-15.5) % Neutrophils # (1.3-7.7) k/uL Chloride (98-107) mmol/L Carbon Dioxide (22-30) mmol/L BUN (9-20) mg/dL Creatinine (0.66-1.25) mg/dL Glucose (74-99) mg/dL POC Glucose (mg/dL) 230 H 226 H 233 H (75-99) mg/dL Calcium (8.4-10.2) mg/dL Albumin (3.5-5.0) g/dL 03/25/17 03/25/17 03/25/17 Range/Units 00:54 01:54 03:00 WBC (3.8-10.6) k/uL RBC (4.30-5.90) m/uL Hgb (13.0-17.5) gm/dL Hct (39.0-53.0) % RDW (11.5-15.5) % Neutrophils # (1.3-7.7) k/uL Chloride (98-107) mmol/L Carbon Dioxide (22-30) mmol/L BUN (9-20) mg/dL Creatinine (0.66-1.25) mg/dL Glucose (74-99) mg/dL POC Glucose (mg/dL) 209 H 206 H 197 H (75-99) mg/dL Calcium (8.4-10.2) mg/dL Albumin (3.5-5.0) g/dL 03/25/17 03/25/17 03/25/17 Range/Units 03:52 05:13 05:46 WBC (3.8-10.6) k/uL RBC (4.30-5.90) m/uL Hgb (13.0-17.5) gm/dL Hct (39.0-53.0) % RDW (11.5-15.5) % Neutrophils # (1.3-7.7) k/uL Chloride 113 H (98-107) mmol/L Carbon Dioxide 19 L (22-30) mmol/L BUN 115 H* (9-20) mg/dL Creatinine 3.50 H (0.66-1.25) mg/dL Glucose 138 H (74-99) mg/dL POC Glucose (mg/dL) 166 H 138 H (75-99) mg/dL Calcium 8.1 L (8.4-10.2) mg/dL Albumin 1.9 L (3.5-5.0) g/dL 03/25/17 03/25/17 03/25/17 Range/Units 05:46 05:54 07:01 WBC 15.8 H (3.8-10.6) k/uL RBC 2.89 L (4.30-5.90) m/uL Hgb 8.3 L (13.0-17.5) gm/dL Hct 26.3 L (39.0-53.0) % RDW 16.0 H (11.5-15.5) % Neutrophils # 12.7 H (1.3-7.7) k/uL Chloride (98-107) mmol/L Carbon Dioxide (22-30) mmol/L BUN (9-20) mg/dL Creatinine (0.66-1.25) mg/dL Glucose (74-99) mg/dL POC Glucose (mg/dL) 145 H 129 H (75-99) mg/dL Calcium (8.4-10.2) mg/dL Albumin (3.5-5.0) g/dL 03/25/17 03/25/17 03/25/17 Range/Units 08:14 09:02 09:58 WBC (3.8-10.6) k/uL RBC (4.30-5.90) m/uL Hgb (13.0-17.5) gm/dL Hct (39.0-53.0) % RDW (11.5-15.5) % Neutrophils # (1.3-7.7) k/uL Chloride (98-107) mmol/L Carbon Dioxide (22-30) mmol/L BUN (9-20) mg/dL Creatinine (0.66-1.25) mg/dL Glucose (74-99) mg/dL POC Glucose (mg/dL) 126 H 129 H 151 H (75-99) mg/dL Calcium (8.4-10.2) mg/dL Albumin (3.5-5.0) g/dL 03/25/17 03/25/17 03/25/17 Range/Units 11:20 12:30 13:29 WBC (3.8-10.6) k/uL RBC (4.30-5.90) m/uL Hgb (13.0-17.5) gm/dL Hct (39.0-53.0) % RDW (11.5-15.5) % Neutrophils # (1.3-7.7) k/uL Chloride (98-107) mmol/L Carbon Dioxide (22-30) mmol/L BUN (9-20) mg/dL Creatinine (0.66-1.25) mg/dL Glucose (74-99) mg/dL POC Glucose (mg/dL) 162 H 184 H 146 H (75-99) mg/dL Calcium (8.4-10.2) mg/dL Albumin (3.5-5.0) g/dL 03/25/17 03/25/17 03/25/17 Range/Units 14:11 14:54 16:09 WBC (3.8-10.6) k/uL RBC (4.30-5.90) m/uL Hgb (13.0-17.5) gm/dL Hct (39.0-53.0) % RDW (11.5-15.5) % Neutrophils # (1.3-7.7) k/uL Chloride (98-107) mmol/L Carbon Dioxide (22-30) mmol/L BUN (9-20) mg/dL Creatinine (0.66-1.25) mg/dL Glucose (74-99) mg/dL POC Glucose (mg/dL) 144 H 134 H 150 H (75-99) mg/dL Calcium (8.4-10.2) mg/dL Albumin (3.5-5.0) g/dL 03/25/17 03/25/17 03/25/17 Range/Units 16:52 17:51 18:22 WBC (3.8-10.6) k/uL RBC (4.30-5.90) m/uL Hgb (13.0-17.5) gm/dL Hct (39.0-53.0) % RDW (11.5-15.5) % Neutrophils # (1.3-7.7) k/uL Chloride (98-107) mmol/L Carbon Dioxide (22-30) mmol/L BUN (9-20) mg/dL Creatinine (0.66-1.25) mg/dL Glucose (74-99) mg/dL POC Glucose (mg/dL) 150 H 165 H 168 H (75-99) mg/dL Calcium (8.4-10.2) mg/dL Albumin (3.5-5.0) g/dL 03/25/17 03/25/17 03/25/17 Range/Units 19:09 19:57 20:53 WBC (3.8-10.6) k/uL RBC (4.30-5.90) m/uL Hgb (13.0-17.5) gm/dL Hct (39.0-53.0) % RDW (11.5-15.5) % Neutrophils # (1.3-7.7) k/uL Chloride (98-107) mmol/L Carbon Dioxide (22-30) mmol/L BUN (9-20) mg/dL Creatinine (0.66-1.25) mg/dL Glucose (74-99) mg/dL POC Glucose (mg/dL) 165 H 149 H 132 H (75-99) mg/dL Calcium (8.4-10.2) mg/dL Albumin (3.5-5.0) g/dL Microbiology - Last 24 Hours (Table) 03/23/17 08:00 Gram Stain - Preliminary Peritoneal Fluid Body Fluid Culture - Preliminary Laboratory Results WBC 15.8 k/uL (3.8-10.6) H 03/25/17 05:46 RBC 2.89 m/uL (4.30-5.90) L 03/25/17 05:46 Hgb 8.3 gm/dL (13.0-17.5) L 03/25/17 05:46 Hct 26.3 % (39.0-53.0) L 03/25/17 05:46 MCV 90.9 fL (80.0-100.0) 03/25/17 05:46 MCH 28.6 pg (25.0-35.0) 03/25/17 05:46 MCHC 31.4 g/dL (31.0-37.0) 03/25/17 05:46 RDW 16.0 % (11.5-15.5) H 03/25/17 05:46 Plt Count 273 k/uL (150-450) 03/25/17 05:46 Neutrophils % 80 % 03/25/17 05:46 Neutrophils % (Manual) 61.6 % 03/17/17 04:20 Band Neutrophils % 15.2 % 03/17/17 04:20 Lymphocytes % 9 % 03/25/17 05:46 Lymphocytes % (Manual) 18.2 % 03/17/17 04:20 Monocytes % 5 % 03/25/17 05:46 Monocytes % (Manual) 5.1 % 03/17/17 04:20 Eosinophils % 2 % 03/25/17 05:46 Basophils % 1 % 03/25/17 05:46 Metamyelocytes % 4.0 % 03/16/17 22:50 Neutrophils # 12.7 k/uL (1.3-7.7) H 03/25/17 05:46 Neutrophils # (Manual) 7.1 k/uL (1.3-7.7) 03/17/17 04:20 Lymphocytes # 1.5 k/uL (1.0-4.8) 03/25/17 05:46 Lymphocytes # (Manual) 1.7 k/uL (1.0-4.8) 03/17/17 04:20 Monocytes # 0.7 k/uL (0-1.0) 03/25/17 05:46 Monocytes # (Manual) 0.5 k/uL (0-1.0) 03/17/17 04:20 Eosinophils # 0.3 k/uL (0-0.7) 03/25/17 05:46 Basophils # 0.1 k/uL (0-0.2) 03/25/17 05:46 Nucleated RBCs 0 /100 WBC (0-0) 03/17/17 04:20 Manual Slide Review Performed 03/17/17 04:20 Toxic Granulation Present 03/16/17 16:30 RBC Morphology Normal 03/16/17 16:30 Hypochromasia Marked 03/22/17 06:00 Anisocytosis Slight 03/25/17 05:46 PT 10.4 sec (9.0-12.0) 03/16/17 16:30 INR 1.0 (<1.2) 03/16/17 16:30 APTT 22.1 sec (22.0-30.0) 03/16/17 16:30 Sample Site [place] 03/22/17 11:43 ABG pH 7.35 (7.35-7.45) 03/22/17 11:43 ABG pCO2 25 mmHg (35-45) L 03/22/17 11:43 ABG pO2 165 mmHg (83-108) H 03/22/17 11:43 ABG HCO3 13 mmol/L (21-25) L 03/22/17 11:43 ABG Total CO2 14 mmol/L (19-24) L 03/22/17 11:43 ABG O2 Saturation 99.0 % (94-97) H 03/22/17 11:43 ABG Base Excess -11.1 mmol/L 03/22/17 11:43 ABG Hematocrit 29 % (34.0-46.0) L 03/16/17 21:12 ABG Lactic Acid 0.7 mmol/L (0.5-1.6) 03/20/17 04:45 VBG pH 7.25 (7.31-7.41) L 03/16/17 16:30 VBG pCO2 29 mmHg (37-51) L 03/16/17 16:30 VBG HCO3 12 mmol/L (24-28) L 03/16/17 16:30 FiO2 40 % 03/22/17 11:43 Sodium 143 mmol/L (137-145) 03/25/17 05:46 Potassium 3.9 mmol/L (3.5-5.1) 03/25/17 05:46 Chloride 113 mmol/L (98-107) H 03/25/17 05:46 Carbon Dioxide 19 mmol/L (22-30) L 03/25/17 05:46 Anion Gap 11 mmol/L 03/25/17 05:46 BUN 115 mg/dL (9-20) H* 03/25/17 05:46 Creatinine 3.50 mg/dL (0.66-1.25) H 03/25/17 05:46 Est GFR (MDRD) Af Amer 21 (>60 ml/min/1.73 sqM) 03/25/17 05:46 Est GFR (MDRD) Non-Af 18 (>60 ml/min/1.73 sqM) 03/25/17 05:46 Glucose 138 mg/dL (74-99) H 03/25/17 05:46 POC Glucose (mg/dL) 132 mg/dL (75-99) H 03/25/17 20:53 POC Glu Meeting Manager ID Ulises Moran 03/25/17 20:[address] Glu mg/dL 174 mg/dL 03/17/17 04:20 Hemoglobin A1c 7.7 % (4.2-6.1) H 03/17/17 04:20 Lactic Ac Sepsis Rflx Y 03/16/17 16:57 Plasma Lactic Acid Mario 2.8 mmol/L (0.7-2.0) H* 03/16/17 22:42 Calcium 8.1 mg/dL (8.4-10.2) L 03/25/17 05:46 Ionized Calcium Valorie 5.3 mg/dL (4.5-5.3) 03/22/17 Unknown Phosphorus 2.6 mg/dL (2.5-4.5) 03/25/17 05:46 Magnesium 2.3 mg/dL (1.6-2.3) 03/25/17 05:46 Total Bilirubin 1.5 mg/dL (0.2-1.3) H 03/20/17 11:36 AST 19 U/L (17-59) 03/20/17 11:36 ALT 28 U/L (21-72) 03/20/17 11:36 Alkaline Phosphatase 60 U/L (38-126) 03/20/17 11:36 Total Creatine Kinase 216 U/L (55-170) H 03/16/17 16:30 CK-MB (CK-2) 2.9 ng/mL (0.0-2.4) H* 03/16/17 16:30 CK-MB (CK-2) Rel Index 1.3 03/16/17 16:30 Troponin I 0.590 ng/mL (0.000-0.034) H* 03/16/17 16:30 Total Protein 3.4 g/dL (6.3-8.2) L 03/20/17 11:36 Albumin 1.9 g/dL (3.5-5.0) L 03/25/17 05:46 Triglycerides 115 mg/dL (<150) 03/21/17 04:15 TSH 0.672 mIU/L (0.465-4.680) 03/16/17 16:30 Urine Color Dark Yellow 03/16/17 19:00 Urine Appearance Cloudy (Clear) 03/16/17 19:00 Urine pH 5.0 (5.0-8.0) 03/16/17 19:00 Ur Specific Viola 1.017 (1.001-1.035) 03/16/17 19:00 Urine Protein 1+ (Negative) H 03/16/17 19:00 Urine Glucose (UA) 1+ (Negative) H 03/16/17 19:00 Urine Ketones Negative (Negative) 03/16/17 19:00 Urine Blood Trace (Negative) H 03/16/17 19:00 Urine Nitrite Negative (Negative) 03/16/17 19:00 Urine Bilirubin Negative (Negative) 03/16/17 19:00 Urine Urobilinogen <2.0 mg/dL (<2.0) 03/16/17 19:00 Ur Leukocyte Esterase Negative (Negative) 03/16/17 19:00 Urine RBC 15 /hpf (0-5) H 03/16/17 19:00 Urine WBC 4 /hpf (0-5) 03/16/17 19:00 Amorphous Sediment Occasional /hpf (None) H 03/16/17 19:00 Hyaline Casts 110 /lpf (0-2) H 03/16/17 19:00 Random Vancomycin 20.6 ug/mL 03/24/17 05:50 C. difficile (EIA) Intrp Negative (Negative) 03/16/17 23:00 Blood Type A Positive 03/16/17 16:30 Blood Type Recheck No 03/16/17 16:30 Antibody Screen NEGATIVE 03/16/17 16:30 Spec Expiration Date 03/19/2017 - 232903/16/17 16:30 Microbiology 03/23/17 08:00 Peritoneal Fluid Gram Stain - Preliminary 03/23/17 08:00 Peritoneal Fluid Body Fluid Culture - Preliminary 03/16/17 16:30 Blood Blood Culture - Final No Growth after 144 hours 03/18/17 02:25 Sputum Gram Stain - Final 03/18/17 02:25 Sputum Sputum Culture - Final Methicillin resist S. aureus 03/16/17 19:00 Urine,Voided Urine Culture - Final Assessment and Plan (1) Septic shock Narrative/Plan: 66-year-old male with multiple medical troubles with left toe amputations and right below-knee amputation due to his severe peripheral vascular disease. Now presents with a significant bout of sepsis from the abdomen. Has evidence of pneumoperitoneum. Perforated gastric ulcer was noted. As well as gangrenous cholecystitis. He's had the surgical incision is noted. Remains profoundly ill with septic shock. For sepsis from the abdominal source in the condition of the perforation and gangrenous cholecystitis continue with antifungal therapy with fluconazole. Piperacillin tazobactam is being dosed per his renal failure. Has a history of MRSA as well as VRE infection. Daptomycin was being utilized. However MRSA was found in the pulmonary secretions. Was changed to vancomycin and that no VRE has now been isolated from his abdominal cultures. Concerns related to his acute renal failure. Will be monitored closely. Cultures are in process. Supportive care continues. Doing well after extubation is awake and comfortable. Not complaining of abdominal pain. Status: Acute (2) Gastric perforation Status: Acute (3) Cholecystitis Status: Acute
[2017-03-25 21:58] LABS: Glucose,Whole Blood 114 mg/dL (75-99)
[2017-03-25 23:02] LABS: Glucose,Whole Blood 144 mg/dL (75-99)
[2017-03-25] MEDS: INSULIN REGULAR 100 UNIT in SODIUM CHLORIDE 0.9% 100 ML IV SCH (23:03)
[2017-03-26 00:01] LABS: Glucose,Whole Blood 158 mg/dL (75-99)
[2017-03-26] MEDS: HEPARIN SODIUM,PORCINE 5,000 UNIT/ML 1 ML VIAL SQ SCH ×4 (00:01→23:07)
[2017-03-26 01:09] LABS: Glucose,Whole Blood 142 mg/dL (75-99)
[2017-03-26 01:59] LABS: Glucose,Whole Blood 137 mg/dL (75-99)
[2017-03-26 03:07] LABS: Glucose,Whole Blood 127 mg/dL (75-99)
[2017-03-26 04:08] LABS: Glucose,Whole Blood 197 mg/dL (75-99)
[2017-03-26 04:08] LABS: Glucose,Whole Blood 190 mg/dL (75-99)
[2017-03-26 04:26] LABS: Anisocytosis Slight; Basophils # (A) 0.1 k/uL (0-0.2); Basophils % (A) 1 %; CH 29.8; CHCM 32.8; Eosinophils # (A) 0.3 k/uL (0-0.7); Eosinophils % (A) 2 %; HCT 25.5 % (39.0-53.0); HDW 2.97; HGB 8.1 gm/dL (13.0-17.5); Luc % (Auto) 3; Lymphocytes # (A) 1.7 k/uL (1.0-4.8); Lymphocytes % (A) 9 %; MCH 28.9 pg (25.0-35.0); MCHC 31.6 g/dL (31.0-37.0); MCV 91.5 fL (80.0-100.0); Mean Platelet Volume 10.2; Monocytes # (A) 0.9 k/uL (0-1.0); Monocytes % (A) 5 %; Neutrophils # (A) 14.4 k/uL (1.3-7.7); Neutrophils % (A) 80 %; RBC 2.79 m/uL (4.30-5.90); RDW 16.8 % (11.5-15.5); WBC (Perox) 18.38
[2017-03-26 04:48] LABS: Magnesium 2.1 mg/dL (1.6-2.3); Phosphorous 4.7 mg/dL (2.5-4.5); Potassium 4.4 mmol/L (3.5-5.1)
[2017-03-26 05:08] LABS: Glucose,Whole Blood 191 mg/dL (75-99)
[2017-03-26 06:08] LABS: Glucose,Whole Blood 171 mg/dL (75-99)
[2017-03-26 06:56] LABS: Glucose,Whole Blood 135 mg/dL (75-99)
[2017-03-26 07:57] LABS: Glucose,Whole Blood 118 mg/dL (75-99)
[2017-03-26] MEDS: IPRATROPIUM-ALBUTEROL 3 ML NEB INHALATION SCH ×4 (08:36→20:30)
[2017-03-26] MEDS: 1: MVI, ADULT NO.4 WITH VIT K 10 ML, TRACE (CONC-1ML/DOSE) 1 ML, POTASSIUM ACETATE 20 ME IV SCH ×9 (08:48→15:12)
[2017-03-26] MEDS: FLUCONAZOLE IN NACL,ISO-OSM 100 MG in SALINE 1 50ML.BAG IVPB SCH (08:53)
[2017-03-26] MEDS: PIPERACILLIN-TAZOBACTAM 3.375 GM in DEXTROSE/WATER 1 50ML.BAG IVPB SCH ×3 (08:53→23:07)
[2017-03-26] MEDS: PANTOPRAZOLE 40 MG/10 ML VIAL IV SCH ×2 (08:54→21:17)
[2017-03-26] MEDS: FUROSEMIDE 10 MG/ML 4 ML VIAL IV SCH (08:54)
[2017-03-26 09:00] LABS: Glucose,Whole Blood 115 mg/dL (75-99)
[2017-03-26] MEDS ORDERED: 1: MVI, ADULT NO.4 WITH VIT K 10 ML, TRACE (CONC-1ML/DOSE) 1 ML, POTASSIUM ACETATE 20 ME IV SCH ×5 (10:00)
[2017-03-26 10:01] LABS: Glucose,Whole Blood 149 mg/dL (75-99)
--- NOTE | 2017-03-26 10:05 | CDI ---
In responding to this query, please exercise your independent professional judgment. The [facility] Coding Staff and Clinical Documentation Specialists appreciate your assistance in clarifying documentation, maintaining compliance with coding guidelines, accurately documenting patients condition and capturing severity of illness. The fact that a question is asked does not imply that any particular answer is desired or expected. Communication forms are a method of clarifying documentation and are not made part of the Legal Health Record. Thank you in advance for your clarification. Last Revision, June 2015 Chandu Forbes [address] [facility] [place] [address] Documentation Clarification Form Date: 03/26/2017 9:44:00 AM From: More Person RN, CCDS Admit Date: 03/16/2017 6:59:00 PM Patient Name: Michael Braun Visit Number: [id number] Dr. Adin Cardoza diagnosis of anemia lacks specificity to accurately reflect your patients severity of condition and clarification is needed. Patient history/risk factors: Hx of chronic anemia, Sepsis, perforated gastric ulcer, gangrenous choleycystitis with repair of perforated ulcer with Don patch and open choley Clinical Indicators: Nephrology Consult and Progress Notes: "Postoperative anemia." Hemoglobin: 11.9/11.7/9.3/9/8.5/8.3/8.1 Hematocrit: 38/37/29.4/28.6/26.8/27.5/26.3/25.5 Treatment: Labs Am Daily In order to capture the severity of condition, please clarify the type of anemia and etiology if known: Acute blood loss anemia Acute on chronic blood loss anemia Chronic blood loss anemia Iron deficiency anemia Hemolytic anemia Drug induced anemia Anemia due to malignancy Nutritional anemia Anemia of chronic kidney disease Unable to determine Other, please specify An expected post-procedural or post-surgical condition Integral to the procedure Inherent to the procedure An unexpected post-procedural or post-surgical condition, related to surgical care Other, please specify Unable to determine Please document in your progress notes and discharge summary in order to capture severity of illness and risk of mortality. Include clinical findings that support your diagnosis. FYI: Press F11 to launch patient chart. Place X here if this finding has no clinical significance, is not applicable or if you are not able to provide any additional documentation. MTDD
[2017-03-26 11:03] LABS: Glucose,Whole Blood 140 mg/dL (75-99)
--- NOTE | 2017-03-26 11:16 | P.PN ---
Subjective Patient is seen in follow-up for acute renal failure and metabolic acidosis. Renal function is a little worse with creatinine at 3.5 today. Patient is maintained on TPN. He was extubated 03/22. Patient presented with a perforated peptic ulcer and underwent exploratory laparotomy and open cholecystectomy this admission. Maintained on Lasix 40 mg IV once daily. He is nonoliguric. Patient does have underlying chronic kidney disease with creatinine in the range of 2.4-2.5 in July 2016. Off pressors. Vital signs are stable. General: Now extubated. OGT noted. HEENT: Head exam is unremarkable. Neck is without jugular venous distension. LUNGS: Scattered rhonchi. Breath sounds decreased. HEART: Rate and Rhythm are regular. First and second heart sounds normal. No murmurs, rubs or gallops. ABDOMEN: Bowel sounds present. EXTREMITITES: 1+ edema. Left BKA noted. Objective - Vital Signs Vital signs: Vital Signs Temp 98.5 F 03/26/17 08:00 Pulse 106 H 03/26/17 10:00 Resp 21 03/26/17 10:00 BP 109/55 03/26/17 10:00 Pulse Ox 96 03/26/17 10:00 Intake & Output 03/25/17 03/26/17 03/26/17 18:59 06:59 18:59 Intake Total 7085.233 6344.003 102.5 Output Total 1370 2030 440 Balance 128.445 -481.997 -337.5 Weight 93.6 kg Intake: IV 1481 1472 102.5 D5W 30 Dextrose 5% in Water 1, 60 000 ml @ 60 mls/hr IV . [id number] [facility] Rx#:[id number] Fat Emulsion 20% 250 ml 21 252 In Empty Bag 1 bag @ 21 mls/hr IV DAILY@1400 [facility] Rx#:[id number] Fluconazole in NaCl Iso- 50 50 Osm 100mg in Saline 1 50ml.bag @50mls/hr IVPB Daily Mvi, Adult No.4 with Vit 1100 1100 K 10 ml Trace (Conc-1Ml/ Dose) 1 ml Parenteral Electrolytes 20 ml Potassium Acetate 20 meq In Amino Acid 5%-D15w 1, 000 ml @ 100 mls/hr IV . BY DURATION [facility] Rx#: [id number] Piperacillin-Tazobactam 3 50 50 12.5 .375 gm In Dextrose/Water 1 50ml.bag @ 12.5 mls/hr IVPB Q12HR [facility] Rx#: [id number] Potassium Chloride 10 meq 200 In Water For Injection 1 100ml.bag @ 100 mls/hr IVPB Q1H [facility] Rx#: [id number] Sodium Chloride 0.9% 1, 70 10 000 ml @ 40 mls/hr IV . Q24H [facility] Rx#:[id number] Intake, IV Titration 17.445 76.003 0 Amount Insulin Regular 100 unit 17.445 76.003 0 In Sodium Chloride 0.9% 100 ml @ Per Protocol IV .Q0M [facility] Rx#:[id number] Output: Urine 1370 2030 440 Stool 0 0 Other: Voiding Method Indwelling Catheter Indwelling Catheter ABP, PAP, CO, CI - Last Documented Arterial Blood Pressure 146/54 - Labs CBC & Chem 7: 03/26/17 04:17 03/26/17 04:17 Labs: Abnormal Lab Results - Last 24 Hours (Table) 03/25/17 03/25/17 03/25/17 Range/Units 11:20 12:30 13:29 WBC (3.8-10.6) k/uL RBC (4.30-5.90) m/uL Hgb (13.0-17.5) gm/dL Hct (39.0-53.0) % RDW (11.5-15.5) % Neutrophils # (1.3-7.7) k/uL Chloride (98-107) mmol/L Carbon Dioxide (22-30) mmol/L BUN (9-20) mg/dL Creatinine (0.66-1.25) mg/dL Glucose (74-99) mg/dL POC Glucose (mg/dL) 162 H 184 H 146 H (75-99) mg/dL Calcium (8.4-10.2) mg/dL Phosphorus (2.5-4.5) mg/dL Albumin (3.5-5.0) g/dL 03/25/17 03/25/17 03/25/17 Range/Units 14:11 14:54 16:09 WBC (3.8-10.6) k/uL RBC (4.30-5.90) m/uL Hgb (13.0-17.5) gm/dL Hct (39.0-53.0) % RDW (11.5-15.5) % Neutrophils # (1.3-7.7) k/uL Chloride (98-107) mmol/L Carbon Dioxide (22-30) mmol/L BUN (9-20) mg/dL Creatinine (0.66-1.25) mg/dL Glucose (74-99) mg/dL POC Glucose (mg/dL) 144 H 134 H 150 H (75-99) mg/dL Calcium (8.4-10.2) mg/dL Phosphorus (2.5-4.5) mg/dL Albumin (3.5-5.0) g/dL 03/25/17 03/25/17 03/25/17 Range/Units 16:52 17:51 18:22 WBC (3.8-10.6) k/uL RBC (4.30-5.90) m/uL Hgb (13.0-17.5) gm/dL Hct (39.0-53.0) % RDW (11.5-15.5) % Neutrophils # (1.3-7.7) k/uL Chloride (98-107) mmol/L Carbon Dioxide (22-30) mmol/L BUN (9-20) mg/dL Creatinine (0.66-1.25) mg/dL Glucose (74-99) mg/dL POC Glucose (mg/dL) 150 H 165 H 168 H (75-99) mg/dL Calcium (8.4-10.2) mg/dL Phosphorus (2.5-4.5) mg/dL Albumin (3.5-5.0) g/dL 03/25/17 03/25/17 03/25/17 Range/Units 19:09 19:57 20:53 WBC (3.8-10.6) k/uL RBC (4.30-5.90) m/uL Hgb (13.0-17.5) gm/dL Hct (39.0-53.0) % RDW (11.5-15.5) % Neutrophils # (1.3-7.7) k/uL Chloride (98-107) mmol/L Carbon Dioxide (22-30) mmol/L BUN (9-20) mg/dL Creatinine (0.66-1.25) mg/dL Glucose (74-99) mg/dL POC Glucose (mg/dL) 165 H 149 H 132 H (75-99) mg/dL Calcium (8.4-10.2) mg/dL Phosphorus (2.5-4.5) mg/dL Albumin (3.5-5.0) g/dL 03/25/17 03/25/17 03/25/17 Range/Units 21:57 23:00 23:58 WBC (3.8-10.6) k/uL RBC (4.30-5.90) m/uL Hgb (13.0-17.5) gm/dL Hct (39.0-53.0) % RDW (11.5-15.5) % Neutrophils # (1.3-7.7) k/uL Chloride (98-107) mmol/L Carbon Dioxide (22-30) mmol/L BUN (9-20) mg/dL Creatinine (0.66-1.25) mg/dL Glucose (74-99) mg/dL POC Glucose (mg/dL) 114 H 144 H 158 H (75-99) mg/dL Calcium (8.4-10.2) mg/dL Phosphorus (2.5-4.5) mg/dL Albumin (3.5-5.0) g/dL 03/26/17 03/26/17 03/26/17 Range/Units 01:07 01:57 03:06 WBC (3.8-10.6) k/uL RBC (4.30-5.90) m/uL Hgb (13.0-17.5) gm/dL Hct (39.0-53.0) % RDW (11.5-15.5) % Neutrophils # (1.3-7.7) k/uL Chloride (98-107) mmol/L Carbon Dioxide (22-30) mmol/L BUN (9-20) mg/dL Creatinine (0.66-1.25) mg/dL Glucose (74-99) mg/dL POC Glucose (mg/dL) 142 H 137 H 127 H (75-99) mg/dL Calcium (8.4-10.2) mg/dL Phosphorus (2.5-4.5) mg/dL Albumin (3.5-5.0) g/dL 03/26/17 03/26/17 03/26/17 Range/Units 04:03 04:07 04:17 WBC (3.8-10.6) k/uL RBC (4.30-5.90) m/uL Hgb (13.0-17.5) gm/dL Hct (39.0-53.0) % RDW (11.5-15.5) % Neutrophils # (1.3-7.7) k/uL Chloride 110 H (98-107) mmol/L Carbon Dioxide 20 L (22-30) mmol/L BUN 114 H* (9-20) mg/dL Creatinine 3.60 H (0.66-1.25) mg/dL Glucose 176 H (74-99) mg/dL POC Glucose (mg/dL) 197 H 190 H (75-99) mg/dL Calcium 8.0 L (8.4-10.2) mg/dL Phosphorus 4.7 H (2.5-4.5) mg/dL Albumin 2.0 L (3.5-5.0) g/dL 03/26/17 03/26/17 03/26/17 Range/Units 04:17 05:07 06:07 WBC 18.0 H (3.8-10.6) k/uL RBC 2.79 L (4.30-5.90) m/uL Hgb 8.1 L (13.0-17.5) gm/dL Hct 25.5 L (39.0-53.0) % RDW 16.8 H (11.5-15.5) % Neutrophils # 14.4 H (1.3-7.7) k/uL Chloride (98-107) mmol/L Carbon Dioxide (22-30) mmol/L BUN (9-20) mg/dL Creatinine (0.66-1.25) mg/dL Glucose (74-99) mg/dL POC Glucose (mg/dL) 191 H 171 H (75-99) mg/dL Calcium (8.4-10.2) mg/dL Phosphorus (2.5-4.5) mg/dL Albumin (3.5-5.0) g/dL 03/26/17 03/26/17 03/26/17 Range/Units 06:54 07:56 08:58 WBC (3.8-10.6) k/uL RBC (4.30-5.90) m/uL Hgb (13.0-17.5) gm/dL Hct (39.0-53.0) % RDW (11.5-15.5) % Neutrophils # (1.3-7.7) k/uL Chloride (98-107) mmol/L Carbon Dioxide (22-30) mmol/L BUN (9-20) mg/dL Creatinine (0.66-1.25) mg/dL Glucose (74-99) mg/dL POC Glucose (mg/dL) 135 H 118 H 115 H (75-99) mg/dL Calcium (8.4-10.2) mg/dL Phosphorus (2.5-4.5) mg/dL Albumin (3.5-5.0) g/dL 03/26/17 03/26/17 Range/Units 09:59 11:02 WBC (3.8-10.6) k/uL RBC (4.30-5.90) m/uL Hgb (13.0-17.5) gm/dL Hct (39.0-53.0) % RDW (11.5-15.5) % Neutrophils # (1.3-7.7) k/uL Chloride (98-107) mmol/L Carbon Dioxide (22-30) mmol/L BUN (9-20) mg/dL Creatinine (0.66-1.25) mg/dL Glucose (74-99) mg/dL POC Glucose (mg/dL) 149 H 140 H (75-99) mg/dL Calcium (8.4-10.2) mg/dL Phosphorus (2.5-4.5) mg/dL Albumin (3.5-5.0) g/dL Microbiology - Last 24 Hours (Table) 03/23/17 08:00 Gram Stain - Preliminary Peritoneal Fluid Body Fluid Culture - Preliminary Assessment and Plan Plan: Assessment: #1. Nonoliguric acute kidney injury secondary to ischemic ATN secondary to hypotension and sepsis. Renal function a little worse with creatinine at 3.6 . BUN elevated due to diuresis - not on steroids and no evidence of GI bleed. #2. Perforated peptic ulcer status post exploratory laparotomy and open cholecystectomy on March 16. #3. Metabolic acidosis with respiratory compensation secondary to acute kidney injury and IV fluids. Improving. #4. Hypotension secondary to sepsis. Off vasopressors. #5. Anemia of chronic kidney disease. #6. Sepsis secondary to perforated ulcer and gangrenous cholecystitis. Sputum culture positive for MRSA. #7. 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 Etiology is likely diabetic kidney disease. #8. Hypernatremia secondary to diuresis and lack of oral water intake. Improved. #9. Hypokalemia secondary to poor nutritional status and renal potassium wasting. Magnesium replete. Improved. Plan: Start oral sodium bicarbonate once able to tolerate oral medications. Scheduled for possible upper GI today. Diet 3 g per surgical recommendations. Patient also receiving potassium acetate as needed. Antibiotics per infectious disease recommendations. Avoid nephrotoxic agents and hypotensive episodes. Monitor vancomycin levels. No urgent need for renal replacement therapy at this time. Add Aranesp.
[2017-03-26] MEDS ORDERED: LIDOCAINE 2% INJ 20 MG/ML SQ ONE (11:23)
--- NOTE | 2017-03-26 11:43 | P.PN ---
Subjective Principal diagnosis: Acute abdominal sepsis and perforation of peptic ulcer. A 66-year-old male patient who came into the intensive care unit after undergoing expiratory laparotomy and repair of a perforated peptic ulcer with a modified Don patch and open cholecystectomy. Surgery was done last night and the patient was brought into the intensive care unit intubated on a mechanical ventilator. According to the reported history the patient was having 3-4 days history of a vague abdominal pain. This being gradually got worse. The patient was also having constipation. He had some nausea without vomiting. Appetite was diminished. No bright red blood per rectum. The pain was mainly over the central abdomen. No history of any peptic ulcer disease or diverticular disease. The x-ray of the abdomen in the emergency department showed pneumoperitoneum and the CAT scan confirmed the presence of a large volume of free air. The gallbladder was also thickened. The majority of the air was in the upper abdomen. Intraoperatively, the patient was found to have a perforated peptic ulcer and a gangrenous gallbladder. The patient is currently in the intensive care unit. The patient has received a total of 7 L of IV fluids. He has chronic renal failure and had developed acute kidney injury on top of chronic renal insufficiency and currently is oliguric producing only 5-10 mL an hour of urine output. The patient is intubated on a mechanical ventilator. The patient on assist control mode at the rate of 10, tidal volume 450, FiO2 of 40% and a PEEP of 5. His blood. From this morning showed a pH of 7.31 with a pCO2 of 27 and pO2 of 198 and based on that the FiO2 was weaned down. Chest x-ray shows no pneumothorax or pneumoperitoneum. ET tube is in a good location. Hemodynamically, the patient was doing poorly. He was in septic shock. He was tachycardic with a heart rate in the 1:30 range. This improved with fluid resuscitation his current heart rate is sinus at 110. He also was on higher doses of pressors and norepinephrine infusion was running at 25 mics and currently is down to 50 mics. He is covered with a combination of IV Zosyn, IV Diflucan and IV Flagyl. He is afebrile for now. Is sedated with Diprivan. He has a below-knee amputation on the right lower extremity and the feet on the left lower extremity shows marked diminished pulses at is obtainable by Doppler. Lactic acid level was 5.4 at time of admission is currently down to 2.7. He has a right IJ triple-lumen catheter. He has a right upper extremity radial art line. He also has a LOUISA drain in his right lower quadrant area. On 03/18/2017 I'm seeing this patient in the follow-up. The patient remains intubated on a mechanical ventilator. He remains an assist-control mode of ventilation at a tidal volume 450, rate of 24, FiO2 of 40% and a PEEP of 5. His blood gases from this morning showed a pH of 7.26 with a pCO2 of 30 and pO2 of 155. Chest x-ray from this morning shows small bilateral pleural effusions, ET tube is in a good location, NG tube is in a good location and there is no acute pulmonary infiltrates or consolidations. Hemodynamically, the patient is still pressor dependent at 15 mics. Overnight he had to be as high as 20 mics and then he got weaned again down to 15 g of norepinephrine infusion. Urine output is gradually improving. Over the past 12 hours he produced approximately 50 mL of urine output. The patient is still having intermittent renal function and the creatinine still elevated at 4.8 which is comparable to yesterday. Rest of the electrodes are within normal. The patient is still acidotic with a bicarb level of 13. He received a total of 3 L of normal saline and 2 A of 12.5 g of albumin. He is still on a combination of Zosyn, Flagyl and Diflucan. All of the cultures of been negative. He remains nothing by mouth. Surgical wound site is clean and intact. LOUISA drain is draining approximately 50 mL of serosanguineous material. On 03/19/2017 the patient remains intubated on a mechanical ventilator. He is still respiratory failure. He is still in shock. He remains assist-control mode of ventilation with essentially the same vent settings. He is still requiring pressors and levo fed is running somewhere between 8-10 mics. He is afebrile. Echocardiogram was done at the bedside and showed a preserved LV function without any signs of heart failure. Remains sedated on Diprivan. A sedation holiday will be given to him today and try to lower down agree off sedation if possible. Remains on broad-spectrum antibiotics. Surgical wound site is dry clean and intact. Continues to be an acute kidney injury on top of chronic renal failure. No major improvement in the renal function although the patient has become nonoliguric at this point. He is producing adequate amount of urine output. His been aggressively resuscitated IV fluids and colloids and he is in a positive fluid balance and he has demonstrated some edema both in the upper and lower extremities. He remains acidotic. A follow-up lactic acid level will be obtained. Remains nothing by mouth. No clearance from surgery for enteral feeding. No TPN initiated yet. The patient is seen again today 03/20/2017 in follow-up in the intensive care unit. He remains intubated on the mechanical ventilator and assist control mode with a rate of 24, tidal volume 450, FiO2 40% and a PEEP of 5. Morning blood gases reveal a P O2 170, pCO2 of 26 and a pH of 7.20. This was done on 40 % FiO2. He is currently off sedation. He is fluttering his eyelids open but not following any commands at this point. He remains on norepinephrine currently at 3 mcg/m. He is also on a 0.9 normal saline at 40 miles per hour. His chest x-ray does show overall stable findings, there is low lung volumes with small bilateral pleural effusions and basilar atelectasis. His sputum culture reveals methicillin-resistant Staphylococcus aureus. Blood culture reveals no growth to date. He remains on vancomycin and metronidazole. He did have 150 MLS returned from the gastric tube which remains to suction. He does remain acidotic with a bicarb of 9. Chloride is 123. Current BUN 83, creatinine 4.41. The patient is seen again today 03/21/2017 in follow-up in the intensive care unit. He remains intubated on mechanical ventilator at a rate of 24, tidal volume 450, FiO2 40% and a PEEP of 5. Morning blood gases reveal a pH of 7.30, pCO2 of 26, pO2 of 163. The patient does remain off sedation and does open his eyes and follows simple commands. He is quite weak. He is currently off pressors. His white count is improving currently 14.1. Hemoglobin stable at 8.5. Sodium 147, chloride 124, bicarb improved to 11. Creatinine remains high at 4.70. He had been initiated on a bicarbonate drip yesterday to improve his acidosis.. On 03/22/2017 the patient is being seen in follow-up. The patient was taken off sedation this morning and he was quite awake. Bit lethargic yet arousable. He was moving extremities and responding to simple commands. He was off pressors. Renal function remains impaired however the patient was producing adequate amount of urine output. An ongoing issue was his underlying metabolic acidosis. He was placed on a bicarb drip briefly however based on the absence of significant bicarbonate stock in the hospital day infusion was stopped. He is still on TPN for nutritional support. He is receiving acetate through the TPN. Currently is on a mechanical ventilator. His assist-control at the rate of 24, tidal volume 450, FiO2 of 40% and a PEEP of 5. Chest x-rays showing small bilateral pleural effusion and ET tube is in good location. The blood gases from earlier this morning showed a pH of 7.32 with a pCO2 of 24 and pO2 155. Based on this, check his weaning parameters and he had a rapid shallow breathing index of less than 50. I give the patient a spontaneous breathing trial for a total of 45 minutes and subsequent blood gases showed a pH of 7.35 with a pCO2 of 25 and pO2 of 165. I give the patient 2 A of bicarb for a bicarb level of 14. Subsequently I extubated the patient. Postextubation, he held himself well. No tachypnea. No respiratory distress. NG tube still in place. The patient's BUN is at 97 creatinine is at 4.5. He was given Lasix IV. He is in significant fluid overload including edema in the lower extremities in the scrotum. Antibiotic coverage includes a combination of Zosyn , daptomycin and Diflucan. Sputum at shown MRSA. 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 Upon subsequent follow-up, daptomycin was discontinued and the patient was switched to vancomycin. On 03/23/2017 the patient is being seen in follow-up. The patient was successfully extubated yesterday and currently is on oxygen at room air. Pulse ox is above 90%. He has an MRSA in the sputum which is probably a colonizer. He is still on broad-spectrum antibiotics. The surgical wound site is clean. Bowel sounds are absent. He remains on TPN for nutritional support. He is bicarb level is gradually improving it's up to 16. He still has extensive edema both in upper and lower extremities and he also edema in his scrotum. I started him on Lasix 40 mg every 12 hours and he is producing approximately 3 L of urine output. Nevertheless, that fluid balance remains positive. He is on a combination of vancomycin, Zosyn and Diflucan for now. He is on TPN for nutritional support. He is on insulin drip at 8 units an hour. He is having some purulent drainage from the LOUISA drain and this was noted this morning. The material will be sent for culture. Afebrile. Surgeries on the case. Awake yet lethargic. Comfortable. On 03/24/2017, patient remains off mechanical ventilation, he was eventually extubated 2 days ago, and he is on room air. Remains on broad-spectrum antibiotics, surgical wound seems to be relatively clean, bowel sounds remain absent, patient is presently on TPN for nutritional support. Continues to have extensive edema in upper or lower extremities and lower extremities and in the scrotal area. Remains on diuretics with good and excellent urine output. Patient is on vancomycin and Zosyn and Diflucan. He is also on insulin drip. WBC count is 15.0 hemoglobin is 8.5. BUN is 105 creatinine is down to 3.71 and bicarb is 19. On 03/25/2017, patient seems to be doing better, he seems to be dehydrated,/ intravascularly depleted, but significant amount of swelling noted in his lower extremities and in the scrotal area. Lips are extremely dry. Renal functioning continues to improve, but still significantly abnormal, hence I will go ahead and cut down on diuretics today. Patient seems to be appropriate , in no distress, hemodynamically stable, afebrile. Patient is on room air with O2 sat of 97%, and his blood pressure is 105/51. BUN is 115 creatinine is down to 3.50. Hemoglobin is 8.3 with WBC count of 15.8. Latex are normal. On 03/26/2017, patient is basically about the same. Denies any specific complaints, but he seems weak, frail, and pale. He also seems dehydrated with very dry mucous membranes noted. Patient remains nonoliguric with acute on chronic kidney disease creatinine is 3.5 today. Patient was seen by nephrology today, and he will be started on oral sodium bicarb, upper GI scheduled to be done today, patient is also receiving potassium acetate, and no emergent need for renal replacement at this time. Aranesp was added. CBC showed a hemoglobin of 8.1 WBC count is 18.0. Basic metabolic profile was reviewed, BUN is 114 creatinine is 3.60 today. Slightly worse compared to yesterday when it was 3.5 yesterday. Objective - Vital Signs Vital signs: Vital Signs Temp 98.5 F 03/26/17 08:00 Pulse 106 H 03/26/17 10:00 Resp 21 03/26/17 10:00 BP 109/55 03/26/17 10:00 Pulse Ox 96 03/26/17 10:00 Intake & Output 03/25/17 03/26/17 03/26/17 18:59 06:59 18:59 Intake Total 5404.410 5251.003 102.5 Output Total 1370 2030 440 Balance 128.445 -481.997 -337.5 Weight 93.6 kg Intake: IV 1481 1472 102.5 D5W 30 Dextrose 5% in Water 1, 60 000 ml @ 60 mls/hr IV . [id number] [facility] Rx#:[id number] Fat Emulsion 20% 250 ml 21 252 In Empty Bag 1 bag @ 21 mls/hr IV DAILY@1400 [facility] Rx#:[id number] Fluconazole in NaCl Iso- 50 50 Osm 100mg in Saline 1 50ml.bag @50mls/hr IVPB Daily Mvi, Adult No.4 with Vit 1100 1100 K 10 ml Trace (Conc-1Ml/ Dose) 1 ml Parenteral Electrolytes 20 ml Potassium Acetate 20 meq In Amino Acid 5%-D15w 1, 000 ml @ 100 mls/hr IV . BY DURATION [facility] Rx#: [id number] Piperacillin-Tazobactam 3 50 50 12.5 .375 gm In Dextrose/Water 1 50ml.bag @ 12.5 mls/hr IVPB Q12HR [facility] Rx#: [id number] Potassium Chloride 10 meq 200 In Water For Injection 1 100ml.bag @ 100 mls/hr IVPB Q1H [facility] Rx#: [id number] Sodium Chloride 0.9% 1, 70 10 000 ml @ 40 mls/hr IV . Q24H [facility] Rx#:[id number] Intake, IV Titration 17.445 76.003 0 Amount Insulin Regular 100 unit 17.445 76.003 0 In Sodium Chloride 0.9% 100 ml @ Per Protocol IV .Q0M [facility] Rx#:[id number] Output: Urine 1370 2030 440 Stool 0 0 Other: Voiding Method Indwelling Catheter Indwelling Catheter ABP, PAP, CO, CI - Last Documented Arterial Blood Pressure 146/54 - Exam Physical Exam: Revealed a 66-year-old white male, pale looking, in no distress. HEENT:[Neck is supple.] [No neck masses.] [No thyromegaly.] [No JVD.] Mucous membranes seem to be extremely dry. Chest: [Diminished breath sounds at the bases no crackles or rhonchi or wheezes. ] Cardiac Exam: [Normal S1 and S2, no S3 gallop, no murmur.] Abdomen: [Postsurgical, Soft, likely tender to palpation,, no megaly, no rebound, no guarding, managed bowel sounds. Surgical incision seems to be clean , drains were noted. Cultures from the LOUISA drain is negative so far. Extremities: [2 + bipedal edema, no clubbing, no cyanosis.] Right Below amputation was noted.] Neurological Exam: Generally weak and frail, but no focal neurologic deficit is noted. - Labs CBC & Chem 7: 03/26/17 04:17 03/26/17 04:17 Labs: Abnormal Lab Results - Last 24 Hours (Table) 03/25/17 03/25/17 03/25/17 Range/Units 12:30 13:29 14:11 WBC (3.8-10.6) k/uL RBC (4.30-5.90) m/uL Hgb (13.0-17.5) gm/dL Hct (39.0-53.0) % RDW (11.5-15.5) % Neutrophils # (1.3-7.7) k/uL Chloride (98-107) mmol/L Carbon Dioxide (22-30) mmol/L BUN (9-20) mg/dL Creatinine (0.66-1.25) mg/dL Glucose (74-99) mg/dL POC Glucose (mg/dL) 184 H 146 H 144 H (75-99) mg/dL Calcium (8.4-10.2) mg/dL Phosphorus (2.5-4.5) mg/dL Albumin (3.5-5.0) g/dL 03/25/17 03/25/17 03/25/17 Range/Units 14:54 16:09 16:52 WBC (3.8-10.6) k/uL RBC (4.30-5.90) m/uL Hgb (13.0-17.5) gm/dL Hct (39.0-53.0) % RDW (11.5-15.5) % Neutrophils # (1.3-7.7) k/uL Chloride (98-107) mmol/L Carbon Dioxide (22-30) mmol/L BUN (9-20) mg/dL Creatinine (0.66-1.25) mg/dL Glucose (74-99) mg/dL POC Glucose (mg/dL) 134 H 150 H 150 H (75-99) mg/dL Calcium (8.4-10.2) mg/dL Phosphorus (2.5-4.5) mg/dL Albumin (3.5-5.0) g/dL 03/25/17 03/25/17 03/25/17 Range/Units 17:51 18:22 19:09 WBC (3.8-10.6) k/uL RBC (4.30-5.90) m/uL Hgb (13.0-17.5) gm/dL Hct (39.0-53.0) % RDW (11.5-15.5) % Neutrophils # (1.3-7.7) k/uL Chloride (98-107) mmol/L Carbon Dioxide (22-30) mmol/L BUN (9-20) mg/dL Creatinine (0.66-1.25) mg/dL Glucose (74-99) mg/dL POC Glucose (mg/dL) 165 H 168 H 165 H (75-99) mg/dL Calcium (8.4-10.2) mg/dL Phosphorus (2.5-4.5) mg/dL Albumin (3.5-5.0) g/dL 03/25/17 03/25/17 03/25/17 Range/Units 19:57 20:53 21:57 WBC (3.8-10.6) k/uL RBC (4.30-5.90) m/uL Hgb (13.0-17.5) gm/dL Hct (39.0-53.0) % RDW (11.5-15.5) % Neutrophils # (1.3-7.7) k/uL Chloride (98-107) mmol/L Carbon Dioxide (22-30) mmol/L BUN (9-20) mg/dL Creatinine (0.66-1.25) mg/dL Glucose (74-99) mg/dL POC Glucose (mg/dL) 149 H 132 H 114 H (75-99) mg/dL Calcium (8.4-10.2) mg/dL Phosphorus (2.5-4.5) mg/dL Albumin (3.5-5.0) g/dL 03/25/17 03/25/17 03/26/17 Range/Units 23:00 23:58 01:07 WBC (3.8-10.6) k/uL RBC (4.30-5.90) m/uL Hgb (13.0-17.5) gm/dL Hct (39.0-53.0) % RDW (11.5-15.5) % Neutrophils # (1.3-7.7) k/uL Chloride (98-107) mmol/L Carbon Dioxide (22-30) mmol/L BUN (9-20) mg/dL Creatinine (0.66-1.25) mg/dL Glucose (74-99) mg/dL POC Glucose (mg/dL) 144 H 158 H 142 H (75-99) mg/dL Calcium (8.4-10.2) mg/dL Phosphorus (2.5-4.5) mg/dL Albumin (3.5-5.0) g/dL 03/26/17 03/26/17 03/26/17 Range/Units 01:57 03:06 04:03 WBC (3.8-10.6) k/uL RBC (4.30-5.90) m/uL Hgb (13.0-17.5) gm/dL Hct (39.0-53.0) % RDW (11.5-15.5) % Neutrophils # (1.3-7.7) k/uL Chloride (98-107) mmol/L Carbon Dioxide (22-30) mmol/L BUN (9-20) mg/dL Creatinine (0.66-1.25) mg/dL Glucose (74-99) mg/dL POC Glucose (mg/dL) 137 H 127 H 197 H (75-99) mg/dL Calcium (8.4-10.2) mg/dL Phosphorus (2.5-4.5) mg/dL Albumin (3.5-5.0) g/dL 03/26/17 03/26/17 03/26/17 Range/Units 04:07 04:17 04:17 WBC 18.0 H (3.8-10.6) k/uL RBC 2.79 L (4.30-5.90) m/uL Hgb 8.1 L (13.0-17.5) gm/dL Hct 25.5 L (39.0-53.0) % RDW 16.8 H (11.5-15.5) % Neutrophils # 14.4 H (1.3-7.7) k/uL Chloride 110 H (98-107) mmol/L Carbon Dioxide 20 L (22-30) mmol/L BUN 114 H* (9-20) mg/dL Creatinine 3.60 H (0.66-1.25) mg/dL Glucose 176 H (74-99) mg/dL POC Glucose (mg/dL) 190 H (75-99) mg/dL Calcium 8.0 L (8.4-10.2) mg/dL Phosphorus 4.7 H (2.5-4.5) mg/dL Albumin 2.0 L (3.5-5.0) g/dL 03/26/17 03/26/17 03/26/17 Range/Units 05:07 06:07 06:54 WBC (3.8-10.6) k/uL RBC (4.30-5.90) m/uL Hgb (13.0-17.5) gm/dL Hct (39.0-53.0) % RDW (11.5-15.5) % Neutrophils # (1.3-7.7) k/uL Chloride (98-107) mmol/L Carbon Dioxide (22-30) mmol/L BUN (9-20) mg/dL Creatinine (0.66-1.25) mg/dL Glucose (74-99) mg/dL POC Glucose (mg/dL) 191 H 171 H 135 H (75-99) mg/dL Calcium (8.4-10.2) mg/dL Phosphorus (2.5-4.5) mg/dL Albumin (3.5-5.0) g/dL 03/26/17 03/26/17 03/26/17 Range/Units 07:56 08:58 09:59 WBC (3.8-10.6) k/uL RBC (4.30-5.90) m/uL Hgb (13.0-17.5) gm/dL Hct (39.0-53.0) % RDW (11.5-15.5) % Neutrophils # (1.3-7.7) k/uL Chloride (98-107) mmol/L Carbon Dioxide (22-30) mmol/L BUN (9-20) mg/dL Creatinine (0.66-1.25) mg/dL Glucose (74-99) mg/dL POC Glucose (mg/dL) 118 H 115 H 149 H (75-99) mg/dL Calcium (8.4-10.2) mg/dL Phosphorus (2.5-4.5) mg/dL Albumin (3.5-5.0) g/dL 03/26/17 Range/Units 11:02 WBC (3.8-10.6) k/uL RBC (4.30-5.90) m/uL Hgb (13.0-17.5) gm/dL Hct (39.0-53.0) % RDW (11.5-15.5) % Neutrophils # (1.3-7.7) k/uL Chloride (98-107) mmol/L Carbon Dioxide (22-30) mmol/L BUN (9-20) mg/dL Creatinine (0.66-1.25) mg/dL Glucose (74-99) mg/dL POC Glucose (mg/dL) 140 H (75-99) mg/dL Calcium (8.4-10.2) mg/dL Phosphorus (2.5-4.5) mg/dL Albumin (3.5-5.0) g/dL Microbiology - Last 24 Hours (Table) 03/23/17 08:00 Gram Stain - Preliminary Peritoneal Fluid Body Fluid Culture - Preliminary Assessment and Plan Plan: 1 acute abdomen status post extra laparotomy and repair of a perforated peptic ulcer a modified Odn patch and open cholecystectomy. Patient is postop day # 9 2 shock secondary to septic in nature secondary to intra-abdominal sepsis complicated by perforated peptic ulcer and cholecystitis. Patient has been stabilized. The patient is currently off pressors. Antibiotic coverage including a combination of vancomycin, Zosyn and Diflucan. Nevertheless, on today's evaluation the patient is having some purulent drainage from the LOUISA drain. Gram stain and cultures are negative so far. If positive, will consider CT of the abdomen and pelvis. To rule out intra-abdominal abscess. 3 hypotension secondary to above , recovered 4 acute respiratory failure, a complication of septic shock. Extubated without any major difficulties. 5 acute kidney injury on top of chronic renal failure. Patient has a nonoliguric acute kidney injury secondary to ischemic ATN secondary to hypotension and sepsis. The patient has stage II kidney disease at baseline due to diabetic nephropathy. 6 acute lactic acidosis, recovered 7 diabetes mellitus with poorly controlled blood sugar secondary to sepsis currently on insulin drip for blood sugar control. 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 17 MRSA in the sputum, likely a colonizer. Recommendation: Continue present supportive care measures, continue antibiotics , cut down on the diuretics, monitor labs on a daily basis, patient will be kept in the ICU, not quite ready for transfer. too many issues seem to be quite concerning to me, hence we will continue to evaluate and monitor in the ICU closely. I believe upper GI is scheduled today, Aranesp was added, no need for dialysis at this point. Prognosis remains poor and guarded. We'll continue to follow. Time with Patient: Less than 30
--- NOTE | 2017-03-26 11:54 | XR ---
EXAMINATION TYPE: XR chest 1V confirm line plcmt DATE OF EXAM: 03/26/2017 HISTORY: Shortness of breath. COMPARISON: March 22, 2017 TECHNIQUE: Single view of the chest is submitted. FINDINGS: Right-sided PICC line is in place and demonstrates its distal tip overlying the SVC. Right IJ central venous line is unchanged in position as is NG tube. Endotracheal tube has been removed. Basilar infi ltrates and pleural effusions persist with interval progression noted. Cardiomediastinal silhouette i s stable. IMPRESSION: 1. Right-sided PICC line as noted. 2. Increasing basilar and perihilar infiltrates as well as small effusions.
[2017-03-26 12:52] LABS: Glucose,Whole Blood 90 mg/dL (75-99)
--- NOTE | 2017-03-26 13:02 | IR ---
EXAMINATION TYPE: IR cvc insert >=5 years DATE OF EXAM: 03/26/2017 COMPARISON: NONE HISTORY: Infection and sepsis, needs long-term intravenous access for antibiotics FINDINGS: Maximal barrier technique was utilized. The skin overlying the right brachial vein was loc alized with ultrasound and noted to be compressible and patent by ultrasound. An ultrasound image wa s obtained and submitted on patient's chart. Sterile technique utilized with the ultrasound machine. The skin overlying was prepped and draped and Lidocaine used for local anesthesia. A skin karla was m arlene with a scalpel. Access was gained to the vein under direct ultrasound guidance with a 21-gauge n eedle and a 0.018 inch wire was advanced. Access site was dilated with a peel-away sheath and the ca theter tailored to length. Catheter advanced centrally and a post procedure chest x-ray verified keyona cement with the tip in the right atrium. Catheter was fixed to the skin with suture and a sterile dr essing placed. Hemostasis achieved and the catheter was aspirated and flushed with sterile saline. The patient remained in stable condition. IMPRESSION: STATUS POST ULTRASOUND GUIDED PICC LINE PLACEMENT, READY FOR USE. THIS PROCEDURE WAS PER FORMED BY THE UNDERSIGNED.
[2017-03-26 14:01] LABS: Glucose,Whole Blood 86 mg/dL (75-99)
[2017-03-26] MEDS: FAT EMULSION 20% 250 ML in EMPTY BAG 1 BAG IV SCH (15:13)
--- NOTE | 2017-03-26 15:15 | FL ---
Single contrast upper GI EXAMINATION TYPE: FL UGI DATE OF EXAM: 03/26/2017 2:54 PM CLINICAL HISTORY: Status post gastric ulcer patching COMPARISON: NONE Contrast: Easy date 4 ounces through the patient's NG tube. 17 images obtained.1 min 30 seconds fl time. Contrast was injected via the patient's indwelling NG tube. There is irregularity of the gastric wall with edema noted at the level of the greater curvature which I presume is the site of previously per forated ulceration. There is no evidence for leak at this time or obstruction. Contrast is noted to f ill the remainder of the stomach and exits into the duodenum appropriately. IMPRESSION: Postoperative changes of gastric ulcer repair without evidence for leak or obstruction at this time.
[2017-03-26] MEDS: DARBEPOETIN ALFA 40 MCG/0.4 ML SYRINGE SQ SCH (15:34)
[2017-03-26 16:00] LABS: Glucose,Whole Blood 123 mg/dL (75-99)
[2017-03-26 17:08] LABS: Glucose,Whole Blood 171 mg/dL (75-99)
[2017-03-26 18:02] LABS: Glucose,Whole Blood 221 mg/dL (75-99)
--- NOTE | 2017-03-26 18:46 | P.PN ---
Subjective Principal diagnosis: Perforated peptic ulcer Patient remains quite weak. His upper GI today shows no evidence of leak or obstruction. Denies abdominal pain. He is somewhat hungry. Objective - Vital Signs Vital signs: Vital Signs Temp 99.0 F 03/26/17 12:00 Pulse 102 H 03/26/17 18:00 Resp 22 03/26/17 18:00 BP 114/56 03/26/17 18:00 Pulse Ox 95 03/26/17 18:00 Intake & Output 03/25/17 03/26/17 03/26/17 18:59 06:59 18:59 Intake Total 8846.269 4264.003 617.758 Output Total 1370 2030 1070 Balance 128.445 -481.997 -452.242 Weight 93.6 kg 93.6 kg Intake: IV 1481 1472 295.5 D5W 110 Dextrose 5% in Water 1, 60 000 ml @ 60 mls/hr IV . [id number] [facility] Rx#:[id number] Fat Emulsion 20% 250 ml 21 252 63 In Empty Bag 1 bag @ 21 mls/hr IV DAILY@1400 [facility] Rx#:[id number] Fluconazole in NaCl Iso- 50 50 Osm 100mg in Saline 1 50ml.bag @50mls/hr IVPB Daily Mvi, Adult No.4 with Vit 1100 1100 K 10 ml Trace (Conc-1Ml/ Dose) 1 ml Parenteral Electrolytes 20 ml Potassium Acetate 20 meq In Amino Acid 5%-D15w 1, 000 ml @ 100 mls/hr IV . BY DURATION [facility] Rx#: [id number] Piperacillin-Tazobactam 3 50 50 62.5 .375 gm In Dextrose/Water 1 50ml.bag @ 12.5 mls/hr IVPB Q12HR [facility] Rx#: [id number] Potassium Chloride 10 meq 200 In Water For Injection 1 100ml.bag @ 100 mls/hr IVPB Q1H [facility] Rx#: [id number] Sodium Chloride 0.9% 1, 70 10 000 ml @ 40 mls/hr IV . Q24H [facility] Rx#:[id number] Intake, IV Titration 17.445 76.003 322.258 Amount Insulin Regular 100 unit 17.445 76.003 22.258 In Sodium Chloride 0.9% 100 ml @ Per Protocol IV .Q0M [facility] Rx#:[id number] Potassium Acetate 20 meq 300 Parenteral Electrolytes 20 ml In Amino Acid 5%- D15w 1,000 ml @ 100 mls/ hr IV .BY DURATION [facility] Rx #:[id number] Output: Urine 1370 2030 1070 Stool 0 0 0 Other: Voiding Method Indwelling Catheter Indwelling Catheter Indwelling Catheter ABP, PAP, CO, CI - Last Documented Arterial Blood Pressure 146/54 - Exam Abdomen: Soft, nondistended, nontender - Labs CBC & Chem 7: 03/26/17 04:17 03/26/17 04:17 Labs: Abnormal Lab Results - Last 24 Hours (Table) 03/25/17 03/25/17 03/25/17 Range/Units 19:09 19:57 20:53 WBC (3.8-10.6) k/uL RBC (4.30-5.90) m/uL Hgb (13.0-17.5) gm/dL Hct (39.0-53.0) % RDW (11.5-15.5) % Neutrophils # (1.3-7.7) k/uL Chloride (98-107) mmol/L Carbon Dioxide (22-30) mmol/L BUN (9-20) mg/dL Creatinine (0.66-1.25) mg/dL Glucose (74-99) mg/dL POC Glucose (mg/dL) 165 H 149 H 132 H (75-99) mg/dL Calcium (8.4-10.2) mg/dL Phosphorus (2.5-4.5) mg/dL Albumin (3.5-5.0) g/dL 03/25/17 03/25/17 03/25/17 Range/Units 21:57 23:00 23:58 WBC (3.8-10.6) k/uL RBC (4.30-5.90) m/uL Hgb (13.0-17.5) gm/dL Hct (39.0-53.0) % RDW (11.5-15.5) % Neutrophils # (1.3-7.7) k/uL Chloride (98-107) mmol/L Carbon Dioxide (22-30) mmol/L BUN (9-20) mg/dL Creatinine (0.66-1.25) mg/dL Glucose (74-99) mg/dL POC Glucose (mg/dL) 114 H 144 H 158 H (75-99) mg/dL Calcium (8.4-10.2) mg/dL Phosphorus (2.5-4.5) mg/dL Albumin (3.5-5.0) g/dL 03/26/17 03/26/17 03/26/17 Range/Units 01:07 01:57 03:06 WBC (3.8-10.6) k/uL RBC (4.30-5.90) m/uL Hgb (13.0-17.5) gm/dL Hct (39.0-53.0) % RDW (11.5-15.5) % Neutrophils # (1.3-7.7) k/uL Chloride (98-107) mmol/L Carbon Dioxide (22-30) mmol/L BUN (9-20) mg/dL Creatinine (0.66-1.25) mg/dL Glucose (74-99) mg/dL POC Glucose (mg/dL) 142 H 137 H 127 H (75-99) mg/dL Calcium (8.4-10.2) mg/dL Phosphorus (2.5-4.5) mg/dL Albumin (3.5-5.0) g/dL 03/26/17 03/26/17 03/26/17 Range/Units 04:03 04:07 04:17 WBC (3.8-10.6) k/uL RBC (4.30-5.90) m/uL Hgb (13.0-17.5) gm/dL Hct (39.0-53.0) % RDW (11.5-15.5) % Neutrophils # (1.3-7.7) k/uL Chloride 110 H (98-107) mmol/L Carbon Dioxide 20 L (22-30) mmol/L BUN 114 H* (9-20) mg/dL Creatinine 3.60 H (0.66-1.25) mg/dL Glucose 176 H (74-99) mg/dL POC Glucose (mg/dL) 197 H 190 H (75-99) mg/dL Calcium 8.0 L (8.4-10.2) mg/dL Phosphorus 4.7 H (2.5-4.5) mg/dL Albumin 2.0 L (3.5-5.0) g/dL 08/16/17 08/16/17 08/16/17 Range/Units 04:17 05:07 06:07 WBC 18.0 H (3.8-10.6) k/uL RBC 2.79 L (4.30-5.90) m/uL Hgb 8.1 L (13.0-17.5) gm/dL Hct 25.5 L (39.0-53.0) % RDW 16.8 H (11.5-15.5) % Neutrophils # 14.4 H (1.3-7.7) k/uL Chloride (98-107) mmol/L Carbon Dioxide (22-30) mmol/L BUN (9-20) mg/dL Creatinine (0.66-1.25) mg/dL Glucose (74-99) mg/dL POC Glucose (mg/dL) 191 H 171 H (75-99) mg/dL Calcium (8.4-10.2) mg/dL Phosphorus (2.5-4.5) mg/dL Albumin (3.5-5.0) g/dL 03/26/17 03/26/17 03/26/17 Range/Units 06:54 07:56 08:58 WBC (3.8-10.6) k/uL RBC (4.30-5.90) m/uL Hgb (13.0-17.5) gm/dL Hct (39.0-53.0) % RDW (11.5-15.5) % Neutrophils # (1.3-7.7) k/uL Chloride (98-107) mmol/L Carbon Dioxide (22-30) mmol/L BUN (9-20) mg/dL Creatinine (0.66-1.25) mg/dL Glucose (74-99) mg/dL POC Glucose (mg/dL) 135 H 118 H 115 H (75-99) mg/dL Calcium (8.4-10.2) mg/dL Phosphorus (2.5-4.5) mg/dL Albumin (3.5-5.0) g/dL 03/26/17 03/26/17 03/26/17 Range/Units 09:59 11:02 15:59 WBC (3.8-10.6) k/uL RBC (4.30-5.90) m/uL Hgb (13.0-17.5) gm/dL Hct (39.0-53.0) % RDW (11.5-15.5) % Neutrophils # (1.3-7.7) k/uL Chloride (98-107) mmol/L Carbon Dioxide (22-30) mmol/L BUN (9-20) mg/dL Creatinine (0.66-1.25) mg/dL Glucose (74-99) mg/dL POC Glucose (mg/dL) 149 H 140 H 123 H (75-99) mg/dL Calcium (8.4-10.2) mg/dL Phosphorus (2.5-4.5) mg/dL Albumin (3.5-5.0) g/dL 03/26/17 03/26/17 Range/Units 17:05 18:00 WBC (3.8-10.6) k/uL RBC (4.30-5.90) m/uL Hgb (13.0-17.5) gm/dL Hct (39.0-53.0) % RDW (11.5-15.5) % Neutrophils # (1.3-7.7) k/uL Chloride (98-107) mmol/L Carbon Dioxide (22-30) mmol/L BUN (9-20) mg/dL Creatinine (0.66-1.25) mg/dL Glucose (74-99) mg/dL POC Glucose (mg/dL) 171 H 221 H (75-99) mg/dL Calcium (8.4-10.2) mg/dL Phosphorus (2.5-4.5) mg/dL Albumin (3.5-5.0) g/dL Assessment and Plan (1) Free intraperitoneal air Narrative/Plan: We'll remove nasogastric tube. Consults speech for bedside swallow evaluation. If cleared begin diet. Status: Acute
[2017-03-26 19:15] LABS: Glucose,Whole Blood 216 mg/dL (75-99)
[2017-03-26 19:43] LABS: Glucose,Whole Blood 225 mg/dL (75-99)
[2017-03-26 20:06] LABS: Glucose,Whole Blood 220 mg/dL (75-99)
[2017-03-26] MEDS: INSULIN REGULAR 100 UNIT in SODIUM CHLORIDE 0.9% 100 ML IV SCH (20:18)
[2017-03-26 21:04] LABS: Glucose,Whole Blood 180 mg/dL (75-99)
[2017-03-26 22:01] LABS: Glucose,Whole Blood 181 mg/dL (75-99)
[2017-03-26 23:02] LABS: Glucose,Whole Blood 147 mg/dL (75-99)
[2017-03-27 00:03] LABS: Glucose,Whole Blood 139 mg/dL (75-99)
[2017-03-27 01:05] LABS: Glucose,Whole Blood 135 mg/dL (75-99)
[2017-03-27 02:13] LABS: Glucose,Whole Blood 90 mg/dL (75-99)
[2017-03-27 02:13] LABS: Glucose,Whole Blood 86 mg/dL (75-99)
[2017-03-27 03:04] LABS: Glucose,Whole Blood 66 mg/dL (75-99)
[2017-03-27] MEDS: 1: MVI, ADULT NO.4 WITH VIT K 10 ML, TRACE (CONC-1ML/DOSE) 1 ML, POTASSIUM ACETATE 20 ME IV SCH ×10 (03:06→14:15)
[2017-03-27 03:07] LABS: Glucose,Whole Blood 64 mg/dL (75-99)
[2017-03-27] MEDS ORDERED: DEXTROSE 10 % IN WATER 250 ML IV STA (03:09)
[2017-03-27 03:49] LABS: Glucose,Whole Blood 153 mg/dL (75-99)
[2017-03-27 03:49] LABS: Glucose,Whole Blood >600 mg/dL (75-99)
[2017-03-27 03:49] LABS: Glucose,Whole Blood >600 mg/dL (75-99)
[2017-03-27 04:11] LABS: Anisocytosis Slight; Basophils # (A) 0.1 k/uL (0-0.2); Basophils % (A) 1 %; CH 29.5; CHCM 32.3; Eosinophils # (A) 0.2 k/uL (0-0.7); Eosinophils % (A) 1 %; HCT 23.6 % (39.0-53.0); HDW 2.94; Luc # (Auto) 0.47; Luc % (Auto) 3; Lymphocytes # (A) 1.3 k/uL (1.0-4.8); Lymphocytes % (A) 8 %; MCH 28.7 pg (25.0-35.0); MCHC 31.1 g/dL (31.0-37.0); MCV 92.1 fL (80.0-100.0); Mean Platelet Volume 9.4; Monocytes # (A) 0.8 k/uL (0-1.0); Monocytes % (A) 5 %; Neutrophils # (A) 12.7 k/uL (1.3-7.7); Neutrophils % (A) 82 %; RBC 2.56 m/uL (4.30-5.90); RDW 16.4 % (11.5-15.5); WBC 15.5 k/uL (3.8-10.6); WBC (Perox) 16.13
[2017-03-27 04:13] LABS: HGB 7.3 gm/dL (13.0-17.5)
[2017-03-27 04:17] LABS: Glucose,Whole Blood 157 mg/dL (75-99)
[2017-03-27 04:26] LABS: Calcium 7.7 mg/dL (8.4-10.2); Magnesium 2.2 mg/dL (1.6-2.3); Phosphorous 4.7 mg/dL (2.5-4.5); Potassium 4.5 mmol/L (3.5-5.1)
[2017-03-27 04:29] LABS: Ionized Calcium 4.8 mg/dL (4.5-5.3)
[2017-03-27 05:17] LABS: Glucose,Whole Blood 184 mg/dL (75-99)
[2017-03-27 06:11] LABS: Glucose,Whole Blood 144 mg/dL (75-99)
[2017-03-27 07:06] LABS: Glucose,Whole Blood 141 mg/dL (75-99)
[2017-03-27] MEDS: IPRATROPIUM-ALBUTEROL 3 ML NEB INHALATION SCH ×4 (07:28→19:28)
[2017-03-27 08:03] LABS: Glucose,Whole Blood 117 mg/dL (75-99)
[2017-03-27] MEDS: FLUCONAZOLE IN NACL,ISO-OSM 100 MG in SALINE 1 50ML.BAG IVPB SCH (08:34)
[2017-03-27] MEDS: HEPARIN SODIUM,PORCINE 5,000 UNIT/ML 1 ML VIAL SQ SCH ×2 (08:34→16:26)
[2017-03-27] MEDS: FUROSEMIDE 10 MG/ML 4 ML VIAL IV SCH (08:34)
[2017-03-27] MEDS: PANTOPRAZOLE 40 MG/10 ML VIAL IV SCH ×2 (08:35→20:45)
[2017-03-27] MEDS ORDERED: VANCOMYCIN 1,500 MG in SODIUM CHLORIDE 0.9% 250 ML IVPB ONE (09:00)
--- NOTE | 2017-03-27 09:01 | XR ---
EXAMINATION TYPE: XR chest 1V portable DATE OF EXAM: 03/27/2017 COMPARISON: 03/26/2017 HISTORY: Shortness of breath TECHNIQUE: Single frontal view of the chest is obtained. FINDINGS: Right PICC terminates in the superior vena cava as does the right internal jugular central venous catheter, both overall unchanged in position in comparison to priors. Enteric tube has been r emoved in the interim. Previously seen bibasilar opacities and pleural effusions have both improved i n the interim. Cardia mediastinal silhouette is mildly enlarged and stable. IMPRESSION: 1. Improved small pleural effusions and associated bibasilar airspace disease. 2. Right PICC and right internal jugular central venous catheter terminating in the right atrium and could be retracted approximately 4 mm for optimal placement. 3. Interval removal of an enteric tube.
[2017-03-27] MEDS: PIPERACILLIN-TAZOBACTAM 3.375 GM in DEXTROSE/WATER 1 50ML.BAG IVPB SCH ×2 (09:25→16:26)
[2017-03-27 09:27] LABS: Glucose,Whole Blood 90 mg/dL (75-99)
[2017-03-27 10:13] LABS: Glucose,Whole Blood 95 mg/dL (75-99)
--- NOTE | 2017-03-27 11:35 | P.PN ---
Subjective Patient is seen in follow-up for acute renal failure and metabolic acidosis. Renal function is stable with creatinine at 3.5 today. Patient is maintained on TPN. He was extubated 03/22. Patient presented with a perforated peptic ulcer and underwent exploratory laparotomy and open cholecystectomy this admission. Maintained on Lasix 40 mg IV once daily. He is nonoliguric. Patient does have underlying chronic kidney disease with creatinine in the range of 2.4-2.5 in July 2016. Off pressors. states he feels well. Failed swallow eval. Vital signs are stable. General: Now extubated. HEENT: Head exam is unremarkable. Neck is without jugular venous distension. LUNGS: Scattered rhonchi. Breath sounds decreased. HEART: Rate and Rhythm are regular. First and second heart sounds normal. No murmurs, rubs or gallops. ABDOMEN: Bowel sounds present. EXTREMITITES: Trace edema. Left BKA noted. Objective - Vital Signs Vital signs: Vital Signs Temp 98.7 F 03/27/17 08:00 Pulse 98 03/27/17 10:00 Resp 26 H 03/27/17 10:00 BP 112/53 03/27/17 10:00 Pulse Ox 95 03/27/17 10:00 Intake & Output 03/26/17 03/27/17 03/27/17 18:59 06:59 18:59 Intake Total 433.651 7809.565 661.538 Output Total 1070 1185 595 Balance -452.242 136.565 66.538 Weight 93.6 kg 93.2 kg 93.2 kg Intake: IV 295.5 345.0 90 D5W 110 60 40 Fat Emulsion 20% 250 ml 63 210 In Empty Bag 1 bag @ 21 mls/hr IV DAILY@1400 [facility] Rx#:[id number] Fluconazole in NaCl Iso- 50 50 Osm 100mg in Saline 1 50ml.bag @50mls/hr IVPB Daily Piperacillin-Tazobactam 3 62.5 75.0 .375 gm In Dextrose/Water 1 50ml.bag @ 12.5 mls/hr IVPB Q12HR [facility] Rx#: [id number] Sodium Chloride 0.9% 1, 10 000 ml @ 40 mls/hr IV . Q24H [facility] Rx#:[id number] Intake, IV Titration 322.258 976.565 571.538 Amount Insulin Regular 100 unit 22.258 76.565 21.538 In Sodium Chloride 0.9% 100 ml @ Per Protocol IV .Q0M [facility] Rx#:[id number] Mvi, Adult No.4 with Vit 800 100 K 10 ml Trace (Conc-1Ml/ Dose) 1 ml Potassium Acetate 20 meq Parenteral Electrolytes 20 ml In Amino Acid 5%-D15w 1,000 ml @ 100 mls/hr IV .BY DURATION [facility] Rx#: [id number] Potassium Acetate 20 meq 300 100 200 Parenteral Electrolytes 20 ml In Amino Acid 5%- D15w 1,000 ml @ 100 mls/ hr IV .BY DURATION [facility] Rx #:[id number] Vancomycin 1,500 mg In 250 Sodium Chloride 0.9% 250 ml @ 125 mls/hr IVPB ONCE ONE Rx#:[id number] Output: Drainage 0 Right Lower Abdomen 0 Urine 1070 1185 595 Stool 0 Other: Voiding Method Indwelling Catheter Indwelling Catheter Indwelling Catheter ABP, PAP, CO, CI - Last Documented Arterial Blood Pressure 146/54 - Labs CBC & Chem 7: 03/27/17 03:39 03/27/17 03:39 Labs: Abnormal Lab Results - Last 24 Hours (Table) 03/26/17 03/26/17 03/26/17 Range/Units 15:59 17:05 18:00 WBC (3.8-10.6) k/uL RBC (4.30-5.90) m/uL Hgb (13.0-17.5) gm/dL Hct (39.0-53.0) % RDW (11.5-15.5) % Neutrophils # (1.3-7.7) k/uL Chloride (98-107) mmol/L Carbon Dioxide (22-30) mmol/L BUN (9-20) mg/dL Creatinine (0.66-1.25) mg/dL Glucose (74-99) mg/dL POC Glucose (mg/dL) 123 H 171 H 221 H (75-99) mg/dL Calcium (8.4-10.2) mg/dL Phosphorus (2.5-4.5) mg/dL Albumin (3.5-5.0) g/dL 03/26/17 03/26/17 03/26/17 Range/Units 19:14 19:41 20:05 WBC (3.8-10.6) k/uL RBC (4.30-5.90) m/uL Hgb (13.0-17.5) gm/dL Hct (39.0-53.0) % RDW (11.5-15.5) % Neutrophils # (1.3-7.7) k/uL Chloride (98-107) mmol/L Carbon Dioxide (22-30) mmol/L BUN (9-20) mg/dL Creatinine (0.66-1.25) mg/dL Glucose (74-99) mg/dL POC Glucose (mg/dL) 216 H 225 H 220 H (75-99) mg/dL Calcium (8.4-10.2) mg/dL Phosphorus (2.5-4.5) mg/dL Albumin (3.5-5.0) g/dL 03/26/17 03/26/17 03/26/17 Range/Units 21:03 22:00 23:00 WBC (3.8-10.6) k/uL RBC (4.30-5.90) m/uL Hgb (13.0-17.5) gm/dL Hct (39.0-53.0) % RDW (11.5-15.5) % Neutrophils # (1.3-7.7) k/uL Chloride (98-107) mmol/L Carbon Dioxide (22-30) mmol/L BUN (9-20) mg/dL Creatinine (0.66-1.25) mg/dL Glucose (74-99) mg/dL POC Glucose (mg/dL) 180 H 181 H 147 H (75-99) mg/dL Calcium (8.4-10.2) mg/dL Phosphorus (2.5-4.5) mg/dL Albumin (3.5-5.0) g/dL 03/27/17 03/27/17 03/27/17 Range/Units 00:01 01:03 03:02 WBC (3.8-10.6) k/uL RBC (4.30-5.90) m/uL Hgb (13.0-17.5) gm/dL Hct (39.0-53.0) % RDW (11.5-15.5) % Neutrophils # (1.3-7.7) k/uL Chloride (98-107) mmol/L Carbon Dioxide (22-30) mmol/L BUN (9-20) mg/dL Creatinine (0.66-1.25) mg/dL Glucose (74-99) mg/dL POC Glucose (mg/dL) 139 H 135 H 66 L (75-99) mg/dL Calcium (8.4-10.2) mg/dL Phosphorus (2.5-4.5) mg/dL Albumin (3.5-5.0) g/dL 03/27/17 03/27/17 03/27/17 Range/Units 03:06 03:39 03:39 WBC 15.5 H (3.8-10.6) k/uL RBC 2.56 L (4.30-5.90) m/uL Hgb 7.3 L (13.0-17.5) gm/dL Hct 23.6 L (39.0-53.0) % RDW 16.4 H (11.5-15.5) % Neutrophils # 12.7 H (1.3-7.7) k/uL Chloride 111 H (98-107) mmol/L Carbon Dioxide 20 L (22-30) mmol/L BUN 113 H* (9-20) mg/dL Creatinine 3.50 H (0.66-1.25) mg/dL Glucose 143 H (74-99) mg/dL POC Glucose (mg/dL) 64 L (75-99) mg/dL Calcium 7.7 L (8.4-10.2) mg/dL Phosphorus 4.7 H (2.5-4.5) mg/dL Albumin 1.9 L (3.5-5.0) g/dL 03/27/17 03/27/17 03/27/17 Range/Units 03:39 03:41 03:46 WBC (3.8-10.6) k/uL RBC (4.30-5.90) m/uL Hgb (13.0-17.5) gm/dL Hct (39.0-53.0) % RDW (11.5-15.5) % Neutrophils # (1.3-7.7) k/uL Chloride (98-107) mmol/L Carbon Dioxide (22-30) mmol/L BUN (9-20) mg/dL Creatinine (0.66-1.25) mg/dL Glucose (74-99) mg/dL POC Glucose (mg/dL) >600 H >600 H 153 H (75-99) mg/dL Calcium (8.4-10.2) mg/dL Phosphorus (2.5-4.5) mg/dL Albumin (3.5-5.0) g/dL 03/27/17 03/27/17 03/27/17 Range/Units 04:16 05:14 06:09 WBC (3.8-10.6) k/uL RBC (4.30-5.90) m/uL Hgb (13.0-17.5) gm/dL Hct (39.0-53.0) % RDW (11.5-15.5) % Neutrophils # (1.3-7.7) k/uL Chloride (98-107) mmol/L Carbon Dioxide (22-30) mmol/L BUN (9-20) mg/dL Creatinine (0.66-1.25) mg/dL Glucose (74-99) mg/dL POC Glucose (mg/dL) 157 H 184 H 144 H (75-99) mg/dL Calcium (8.4-10.2) mg/dL Phosphorus (2.5-4.5) mg/dL Albumin (3.5-5.0) g/dL 03/27/17 03/27/17 Range/Units 07:05 08:01 WBC (3.8-10.6) k/uL RBC (4.30-5.90) m/uL Hgb (13.0-17.5) gm/dL Hct (39.0-53.0) % RDW (11.5-15.5) % Neutrophils # (1.3-7.7) k/uL Chloride (98-107) mmol/L Carbon Dioxide (22-30) mmol/L BUN (9-20) mg/dL Creatinine (0.66-1.25) mg/dL Glucose (74-99) mg/dL POC Glucose (mg/dL) 141 H 117 H (75-99) mg/dL Calcium (8.4-10.2) mg/dL Phosphorus (2.5-4.5) mg/dL Albumin (3.5-5.0) g/dL Microbiology - Last 24 Hours (Table) 03/23/17 08:00 Gram Stain - Final Peritoneal Fluid Body Fluid Culture - Final Assessment and Plan Plan: Assessment: #1. Nonoliguric acute kidney injury secondary to ischemic ATN secondary to hypotension and sepsis. Renal function stable. BUN elevated due to diuresis - not on steroids and no evidence of GI bleed. #2. Perforated peptic ulcer status post exploratory laparotomy and open cholecystectomy on March 16. Upper GI study benign from 03/26. #3. Metabolic acidosis with respiratory compensation secondary to acute kidney injury and IV fluids. Improving. #4. Hypotension secondary to sepsis. Off vasopressors. #5. Anemia of chronic kidney disease. #6. Sepsis secondary to perforated ulcer and gangrenous cholecystitis. Sputum culture positive for MRSA. #7. 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 Etiology is likely diabetic kidney disease. #8. Hypernatremia secondary to diuresis and lack of oral water intake. Improved. #9. Hypokalemia secondary to poor nutritional status and renal potassium wasting. Magnesium replete. Improved. Plan: Start oral sodium bicarbonate once able to tolerate oral medications. Diet advanced per surgical recommendations. Awaits repeat swallow evaluation. Patient also receiving potassium acetate as needed. Antibiotics per infectious disease recommendations. Avoid nephrotoxic agents and hypotensive episodes. Monitor vancomycin levels. No urgent need for renal replacement therapy at this time. Maintain Aranesp.
[2017-03-27] MEDS: INSULIN LISPRO (humaLOG) 300 UNIT/3 ML VIAL SQ SCH ×3 (12:04→20:25)
[2017-03-27 12:05] LABS: Glucose,Whole Blood 133 mg/dL (75-99)
--- NOTE | 2017-03-27 12:09 | P.PN ---
Subjective Principal diagnosis: Acute abdominal sepsis and perforation of peptic ulcer. A 66-year-old male patient who came into the intensive care unit after undergoing expiratory laparotomy and repair of a perforated peptic ulcer with a modified Don patch and open cholecystectomy. Surgery was done last night and the patient was brought into the intensive care unit intubated on a mechanical ventilator. According to the reported history the patient was having 3-4 days history of a vague abdominal pain. This being gradually got worse. The patient was also having constipation. He had some nausea without vomiting. Appetite was diminished. No bright red blood per rectum. The pain was mainly over the central abdomen. No history of any peptic ulcer disease or diverticular disease. The x-ray of the abdomen in the emergency department showed pneumoperitoneum and the CAT scan confirmed the presence of a large volume of free air. The gallbladder was also thickened. The majority of the air was in the upper abdomen. Intraoperatively, the patient was found to have a perforated peptic ulcer and a gangrenous gallbladder. The patient is currently in the intensive care unit. The patient has received a total of 7 L of IV fluids. He has chronic renal failure and had developed acute kidney injury on top of chronic renal insufficiency and currently is oliguric producing only 5-10 mL an hour of urine output. The patient is intubated on a mechanical ventilator. The patient on assist control mode at the rate of 10, tidal volume 450, FiO2 of 40% and a PEEP of 5. His blood. From this morning showed a pH of 7.31 with a pCO2 of 27 and pO2 of 198 and based on that the FiO2 was weaned down. Chest x-ray shows no pneumothorax or pneumoperitoneum. ET tube is in a good location. Hemodynamically, the patient was doing poorly. He was in septic shock. He was tachycardic with a heart rate in the 1:30 range. This improved with fluid resuscitation his current heart rate is sinus at 110. He also was on higher doses of pressors and norepinephrine infusion was running at 25 mics and currently is down to 50 mics. He is covered with a combination of IV Zosyn, IV Diflucan and IV Flagyl. He is afebrile for now. Is sedated with Diprivan. He has a below-knee amputation on the right lower extremity and the feet on the left lower extremity shows marked diminished pulses at is obtainable by Doppler. Lactic acid level was 5.4 at time of admission is currently down to 2.7. He has a right IJ triple-lumen catheter. He has a right upper extremity radial art line. He also has a LOUISA drain in his right lower quadrant area. On 03/18/2017 I'm seeing this patient in the follow-up. The patient remains intubated on a mechanical ventilator. He remains an assist-control mode of ventilation at a tidal volume 450, rate of 24, FiO2 of 40% and a PEEP of 5. His blood gases from this morning showed a pH of 7.26 with a pCO2 of 30 and pO2 of 155. Chest x-ray from this morning shows small bilateral pleural effusions, ET tube is in a good location, NG tube is in a good location and there is no acute pulmonary infiltrates or consolidations. Hemodynamically, the patient is still pressor dependent at 15 mics. Overnight he had to be as high as 20 mics and then he got weaned again down to 15 g of norepinephrine infusion. Urine output is gradually improving. Over the past 12 hours he produced approximately 50 mL of urine output. The patient is still having intermittent renal function and the creatinine still elevated at 4.8 which is comparable to yesterday. Rest of the electrodes are within normal. The patient is still acidotic with a bicarb level of 13. He received a total of 3 L of normal saline and 2 A of 12.5 g of albumin. He is still on a combination of Zosyn, Flagyl and Diflucan. All of the cultures of been negative. He remains nothing by mouth. Surgical wound site is clean and intact. LOUISA drain is draining approximately 50 mL of serosanguineous material. On 03/19/2017 the patient remains intubated on a mechanical ventilator. He is still respiratory failure. He is still in shock. He remains assist-control mode of ventilation with essentially the same vent settings. He is still requiring pressors and levo fed is running somewhere between 8-10 mics. He is afebrile. Echocardiogram was done at the bedside and showed a preserved LV function without any signs of heart failure. Remains sedated on Diprivan. A sedation holiday will be given to him today and try to lower down agree off sedation if possible. Remains on broad-spectrum antibiotics. Surgical wound site is dry clean and intact. Continues to be an acute kidney injury on top of chronic renal failure. No major improvement in the renal function although the patient has become nonoliguric at this point. He is producing adequate amount of urine output. His been aggressively resuscitated IV fluids and colloids and he is in a positive fluid balance and he has demonstrated some edema both in the upper and lower extremities. He remains acidotic. A follow-up lactic acid level will be obtained. Remains nothing by mouth. No clearance from surgery for enteral feeding. No TPN initiated yet. The patient is seen again today 03/20/2017 in follow-up in the intensive care unit. He remains intubated on the mechanical ventilator and assist control mode with a rate of 24, tidal volume 450, FiO2 40% and a PEEP of 5. Morning blood gases reveal a P O2 170, pCO2 of 26 and a pH of 7.20. This was done on 40 % FiO2. He is currently off sedation. He is fluttering his eyelids open but not following any commands at this point. He remains on norepinephrine currently at 3 mcg/m. He is also on a 0.9 normal saline at 40 miles per hour. His chest x-ray does show overall stable findings, there is low lung volumes with small bilateral pleural effusions and basilar atelectasis. His sputum culture reveals methicillin-resistant Staphylococcus aureus. Blood culture reveals no growth to date. He remains on vancomycin and metronidazole. He did have 150 MLS returned from the gastric tube which remains to suction. He does remain acidotic with a bicarb of 9. Chloride is 123. Current BUN 83, creatinine 4.41. The patient is seen again today 03/21/2017 in follow-up in the intensive care unit. He remains intubated on mechanical ventilator at a rate of 24, tidal volume 450, FiO2 40% and a PEEP of 5. Morning blood gases reveal a pH of 7.30, pCO2 of 26, pO2 of 163. The patient does remain off sedation and does open his eyes and follows simple commands. He is quite weak. He is currently off pressors. His white count is improving currently 14.1. Hemoglobin stable at 8.5. Sodium 147, chloride 124, bicarb improved to 11. Creatinine remains high at 4.70. He had been initiated on a bicarbonate drip yesterday to improve his acidosis.. On 03/22/2017 the patient is being seen in follow-up. The patient was taken off sedation this morning and he was quite awake. Bit lethargic yet arousable. He was moving extremities and responding to simple commands. He was off pressors. Renal function remains impaired however the patient was producing adequate amount of urine output. An ongoing issue was his underlying metabolic acidosis. He was placed on a bicarb drip briefly however based on the absence of significant bicarbonate stock in the hospital day infusion was stopped. He is still on TPN for nutritional support. He is receiving acetate through the TPN. Currently is on a mechanical ventilator. His assist-control at the rate of 24, tidal volume 450, FiO2 of 40% and a PEEP of 5. Chest x-rays showing small bilateral pleural effusion and ET tube is in good location. The blood gases from earlier this morning showed a pH of 7.32 with a pCO2 of 24 and pO2 155. Based on this, check his weaning parameters and he had a rapid shallow breathing index of less than 50. I give the patient a spontaneous breathing trial for a total of 45 minutes and subsequent blood gases showed a pH of 7.35 with a pCO2 of 25 and pO2 of 165. I give the patient 2 A of bicarb for a bicarb level of 14. Subsequently I extubated the patient. Postextubation, he held himself well. No tachypnea. No respiratory distress. NG tube still in place. The patient's BUN is at 97 creatinine is at 4.5. He was given Lasix IV. He is in significant fluid overload including edema in the lower extremities in the scrotum. Antibiotic coverage includes a combination of Zosyn , daptomycin and Diflucan. Sputum at shown MRSA. 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 Upon subsequent follow-up, daptomycin was discontinued and the patient was switched to vancomycin. On 03/23/2017 the patient is being seen in follow-up. The patient was successfully extubated yesterday and currently is on oxygen at room air. Pulse ox is above 90%. He has an MRSA in the sputum which is probably a colonizer. He is still on broad-spectrum antibiotics. The surgical wound site is clean. Bowel sounds are absent. He remains on TPN for nutritional support. He is bicarb level is gradually improving it's up to 16. He still has extensive edema both in upper and lower extremities and he also edema in his scrotum. I started him on Lasix 40 mg every 12 hours and he is producing approximately 3 L of urine output. Nevertheless, that fluid balance remains positive. He is on a combination of vancomycin, Zosyn and Diflucan for now. He is on TPN for nutritional support. He is on insulin drip at 8 units an hour. He is having some purulent drainage from the LOUISA drain and this was noted this morning. The material will be sent for culture. Afebrile. Surgeries on the case. Awake yet lethargic. Comfortable. On 03/24/2017, patient remains off mechanical ventilation, he was eventually extubated 2 days ago, and he is on room air. Remains on broad-spectrum antibiotics, surgical wound seems to be relatively clean, bowel sounds remain absent, patient is presently on TPN for nutritional support. Continues to have extensive edema in upper or lower extremities and lower extremities and in the scrotal area. Remains on diuretics with good and excellent urine output. Patient is on vancomycin and Zosyn and Diflucan. He is also on insulin drip. WBC count is 15.0 hemoglobin is 8.5. BUN is 105 creatinine is down to 3.71 and bicarb is 19. On 03/25/2017, patient seems to be doing better, he seems to be dehydrated,/ intravascularly depleted, but significant amount of swelling noted in his lower extremities and in the scrotal area. Lips are extremely dry. Renal functioning continues to improve, but still significantly abnormal, hence I will go ahead and cut down on diuretics today. Patient seems to be appropriate , in no distress, hemodynamically stable, afebrile. Patient is on room air with O2 sat of 97%, and his blood pressure is 105/51. BUN is 115 creatinine is down to 3.50. Hemoglobin is 8.3 with WBC count of 15.8. Latex are normal. On 03/26/2017, patient is basically about the same. Denies any specific complaints, but he seems weak, frail, and pale. He also seems dehydrated with very dry mucous membranes noted. Patient remains nonoliguric with acute on chronic kidney disease creatinine is 3.5 today. Patient was seen by nephrology today, and he will be started on oral sodium bicarb, upper GI scheduled to be done today, patient is also receiving potassium acetate, and no emergent need for renal replacement at this time. Aranesp was added. CBC showed a hemoglobin of 8.1 WBC count is 18.0. Basic metabolic profile was reviewed, BUN is 114 creatinine is 3.60 today. Slightly worse compared to yesterday when it was 3.5 yesterday. Reevaluated on , patient is overall about the same, seems to be slightly more awake and more responsive today compared to the last few days. But overall he remains weak frail and pale. Continues to have good urine output , labs were reviewed hemoglobin is 7.3 today, WBC count is 15.5. Electrolytes and renal profile were noted, BUN is 113 creatinine is 3.50 holding the same as the last couple of days. All labs were reviewed, chest x-ray was also reviewed , and it showed improved small pleural effusion and some bibasilar atelectasis. Objective - Vital Signs Vital signs: Vital Signs Temp 98.7 F 03/27/17 11:00 Pulse 104 H 03/27/17 12:00 Resp 27 H 03/27/17 12:00 BP 95/50 03/27/17 12:00 Pulse Ox 98 03/27/17 12:00 Intake & Output 03/26/17 03/27/17 03/27/17 18:59 06:59 18:59 Intake Total 851.901 7212.565 881.538 Output Total 1070 1185 1010 Balance -452.242 136.565 -128.462 Weight 93.6 kg 93.2 kg 93.2 kg Intake: IV 295.5 345.0 110 D5W 110 60 60 Fat Emulsion 20% 250 ml 63 210 In Empty Bag 1 bag @ 21 mls/hr IV DAILY@1400 [facility] Rx#:[id number] Fluconazole in NaCl Iso- 50 50 Osm 100mg in Saline 1 50ml.bag @50mls/hr IVPB Daily Piperacillin-Tazobactam 3 62.5 75.0 .375 gm In Dextrose/Water 1 50ml.bag @ 12.5 mls/hr IVPB Q12HR [facility] Rx#: [id number] Sodium Chloride 0.9% 1, 10 000 ml @ 40 mls/hr IV . Q24H [facility] Rx#:[id number] Intake, IV Titration 322.258 976.565 771.538 Amount Insulin Regular 100 unit 22.258 76.565 21.538 In Sodium Chloride 0.9% 100 ml @ Per Protocol IV .Q0M [facility] Rx#:[id number] Mvi, Adult No.4 with Vit 800 100 K 10 ml Trace (Conc-1Ml/ Dose) 1 ml Potassium Acetate 20 meq Parenteral Electrolytes 20 ml In Amino Acid 5%-D15w 1,000 ml @ 100 mls/hr IV .BY DURATION [facility] Rx#: [id number] Potassium Acetate 20 meq 300 100 400 Parenteral Electrolytes 20 ml In Amino Acid 5%- D15w 1,000 ml @ 100 mls/ hr IV .BY DURATION [facility] Rx #:[id number] Vancomycin 1,500 mg In 250 Sodium Chloride 0.9% 250 ml @ 125 mls/hr IVPB ONCE ONE Rx#:[id number] Output: Drainage 15 Right Lower Abdomen 15 Urine 1070 1185 995 Stool 0 Other: Voiding Method Indwelling Catheter Indwelling Catheter Indwelling Catheter ABP, PAP, CO, CI - Last Documented Arterial Blood Pressure 146/54 - Exam Physical Exam: Revealed a 66-year-old white male, pale looking, in no distress. HEENT:[Neck is supple.] [No neck masses.] [No thyromegaly.] [No JVD.] Mucous membranes seem to be extremely dry. Chest: [Diminished breath sounds at the bases no crackles or rhonchi or wheezes. ] Cardiac Exam: [Normal S1 and S2, no S3 gallop, no murmur.] Abdomen: [Postsurgical, Soft, likely tender to palpation,, no megaly, no rebound, no guarding, managed bowel sounds. Surgical incision seems to be clean , drains were noted. Cultures from the LOUISA drain is negative so far. Extremities: [2 + bipedal edema, no clubbing, no cyanosis.] Right Below amputation was noted.] Neurological Exam: Generally weak and frail, but no focal neurologic deficit is noted. - Labs CBC & Chem 7: 03/27/17 03:39 03/27/17 03:39 Labs: Abnormal Lab Results - Last 24 Hours (Table) 03/26/17 03/26/17 03/26/17 Range/Units 15:59 17:05 18:00 WBC (3.8-10.6) k/uL RBC (4.30-5.90) m/uL Hgb (13.0-17.5) gm/dL Hct (39.0-53.0) % RDW (11.5-15.5) % Neutrophils # (1.3-7.7) k/uL Chloride (98-107) mmol/L Carbon Dioxide (22-30) mmol/L BUN (9-20) mg/dL Creatinine (0.66-1.25) mg/dL Glucose (74-99) mg/dL POC Glucose (mg/dL) 123 H 171 H 221 H (75-99) mg/dL Calcium (8.4-10.2) mg/dL Phosphorus (2.5-4.5) mg/dL Albumin (3.5-5.0) g/dL 03/26/17 03/26/17 03/26/17 Range/Units 19:14 19:41 20:05 WBC (3.8-10.6) k/uL RBC (4.30-5.90) m/uL Hgb (13.0-17.5) gm/dL Hct (39.0-53.0) % RDW (11.5-15.5) % Neutrophils # (1.3-7.7) k/uL Chloride (98-107) mmol/L Carbon Dioxide (22-30) mmol/L BUN (9-20) mg/dL Creatinine (0.66-1.25) mg/dL Glucose (74-99) mg/dL POC Glucose (mg/dL) 216 H 225 H 220 H (75-99) mg/dL Calcium (8.4-10.2) mg/dL Phosphorus (2.5-4.5) mg/dL Albumin (3.5-5.0) g/dL 03/26/17 03/26/17 03/26/17 Range/Units 21:03 22:00 23:00 WBC (3.8-10.6) k/uL RBC (4.30-5.90) m/uL Hgb (13.0-17.5) gm/dL Hct (39.0-53.0) % RDW (11.5-15.5) % Neutrophils # (1.3-7.7) k/uL Chloride (98-107) mmol/L Carbon Dioxide (22-30) mmol/L BUN (9-20) mg/dL Creatinine (0.66-1.25) mg/dL Glucose (74-99) mg/dL POC Glucose (mg/dL) 180 H 181 H 147 H (75-99) mg/dL Calcium (8.4-10.2) mg/dL Phosphorus (2.5-4.5) mg/dL Albumin (3.5-5.0) g/dL 03/27/17 03/27/17 03/27/17 Range/Units 00:01 01:03 03:02 WBC (3.8-10.6) k/uL RBC (4.30-5.90) m/uL Hgb (13.0-17.5) gm/dL Hct (39.0-53.0) % RDW (11.5-15.5) % Neutrophils # (1.3-7.7) k/uL Chloride (98-107) mmol/L Carbon Dioxide (22-30) mmol/L BUN (9-20) mg/dL Creatinine (0.66-1.25) mg/dL Glucose (74-99) mg/dL POC Glucose (mg/dL) 139 H 135 H 66 L (75-99) mg/dL Calcium (8.4-10.2) mg/dL Phosphorus (2.5-4.5) mg/dL Albumin (3.5-5.0) g/dL 03/27/17 03/27/17 03/27/17 Range/Units 03:06 03:39 03:39 WBC 15.5 H (3.8-10.6) k/uL RBC 2.56 L (4.30-5.90) m/uL Hgb 7.3 L (13.0-17.5) gm/dL Hct 23.6 L (39.0-53.0) % RDW 16.4 H (11.5-15.5) % Neutrophils # 12.7 H (1.3-7.7) k/uL Chloride 111 H (98-107) mmol/L Carbon Dioxide 20 L (22-30) mmol/L BUN 113 H* (9-20) mg/dL Creatinine 3.50 H (0.66-1.25) mg/dL Glucose 143 H (74-99) mg/dL POC Glucose (mg/dL) 64 L (75-99) mg/dL Calcium 7.7 L (8.4-10.2) mg/dL Phosphorus 4.7 H (2.5-4.5) mg/dL Albumin 1.9 L (3.5-5.0) g/dL 03/27/17 03/27/17 03/27/17 Range/Units 03:39 03:41 03:46 WBC (3.8-10.6) k/uL RBC (4.30-5.90) m/uL Hgb (13.0-17.5) gm/dL Hct (39.0-53.0) % RDW (11.5-15.5) % Neutrophils # (1.3-7.7) k/uL Chloride (98-107) mmol/L Carbon Dioxide (22-30) mmol/L BUN (9-20) mg/dL Creatinine (0.66-1.25) mg/dL Glucose (74-99) mg/dL POC Glucose (mg/dL) >600 H >600 H 153 H (75-99) mg/dL Calcium (8.4-10.2) mg/dL Phosphorus (2.5-4.5) mg/dL Albumin (3.5-5.0) g/dL 03/27/17 03/27/17 03/27/17 Range/Units 04:16 05:14 06:09 WBC (3.8-10.6) k/uL RBC (4.30-5.90) m/uL Hgb (13.0-17.5) gm/dL Hct (39.0-53.0) % RDW (11.5-15.5) % Neutrophils # (1.3-7.7) k/uL Chloride (98-107) mmol/L Carbon Dioxide (22-30) mmol/L BUN (9-20) mg/dL Creatinine (0.66-1.25) mg/dL Glucose (74-99) mg/dL POC Glucose (mg/dL) 157 H 184 H 144 H (75-99) mg/dL Calcium (8.4-10.2) mg/dL Phosphorus (2.5-4.5) mg/dL Albumin (3.5-5.0) g/dL 03/27/17 03/27/17 03/27/17 Range/Units 07:05 08:01 12:03 WBC (3.8-10.6) k/uL RBC (4.30-5.90) m/uL Hgb (13.0-17.5) gm/dL Hct (39.0-53.0) % RDW (11.5-15.5) % Neutrophils # (1.3-7.7) k/uL Chloride (98-107) mmol/L Carbon Dioxide (22-30) mmol/L BUN (9-20) mg/dL Creatinine (0.66-1.25) mg/dL Glucose (74-99) mg/dL POC Glucose (mg/dL) 141 H 117 H 133 H (75-99) mg/dL Calcium (8.4-10.2) mg/dL Phosphorus (2.5-4.5) mg/dL Albumin (3.5-5.0) g/dL Microbiology - Last 24 Hours (Table) 03/23/17 08:00 Gram Stain - Final Peritoneal Fluid Body Fluid Culture - Final Assessment and Plan Plan: 1 acute abdomen status post extra laparotomy and repair of a perforated peptic ulcer a modified Don patch and open cholecystectomy. Patient is postop day # 10 2 shock secondary to septic in nature secondary to intra-abdominal sepsis complicated by perforated peptic ulcer and cholecystitis. Patient has been stabilized. The patient is currently off pressors. Antibiotic coverage including a combination of vancomycin, Zosyn and Diflucan. 3 hypotension secondary to above , recovered 4 acute respiratory failure, a complication of septic shock. Extubated without any major difficulties. 5 acute kidney injury on top of chronic renal failure. Patient has a nonoliguric acute kidney injury secondary to ischemic ATN secondary to hypotension and sepsis. The patient has stage II kidney disease at baseline due to diabetic nephropathy. 6 acute lactic acidosis, recovered 7 diabetes mellitus with poorly controlled blood sugar secondary to sepsis currently on insulin drip for blood sugar control. 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 17 MRSA in the sputum, likely a colonizer. Recommendation: Continue present supportive care measures, continue antibiotics , continue present dose of diuretics, monitor labs on a daily basis, patient will be kept in the ICU, not quite ready for transfer. Patient will be switched from insulin drip to insulin scale too many issues seem to be quite concerning to me, hence we will continue to evaluate and monitor in the ICU closely. Aranesp was added, no need for dialysis at this point. Prognosis remains poor and guarded. We'll continue to follow. Time with Patient: Less than 30
[2017-03-27] MEDS: FAT EMULSION 20% 250 ML in EMPTY BAG 1 BAG IV SCH (14:15)
--- NOTE | 2017-03-27 14:19 | P.PN ---
Subjective Principal diagnosis: Perforated peptic ulcer Patient remains fatigued. He says he is more fatigued today than yesterday. Was not able to cooperate well with his swallow evaluation. Denies abdominal pain. LOUISA drain remained serosanguineous. Nasogastric tube was removed yesterday evening. Slightly more tachycardic today. White blood cell count improved at 15.5. Hemoglobin today is 7.3. No melanotic stools. Objective - Vital Signs Vital signs: Vital Signs Temp 98.7 F 03/27/17 11:00 Pulse 111 H 03/27/17 13:00 Resp 24 03/27/17 13:00 BP 137/59 03/27/17 13:00 Pulse Ox 94 L 03/27/17 13:00 Intake & Output 03/26/17 03/27/17 03/27/17 18:59 06:59 18:59 Intake Total 454.241 5186.565 991.538 Output Total 1070 1185 1210 Balance -141.739 9667.565 -218.462 Weight 93.6 kg 93.2 kg 93.2 kg Intake: IV 295.5 345.0 120 D5W 110 60 70 Fat Emulsion 20% 250 ml 63 210 In Empty Bag 1 bag @ 21 mls/hr IV DAILY@1400 [facility] Rx#:[id number] Fluconazole in NaCl Iso- 50 50 Osm 100mg in Saline 1 50ml.bag @50mls/hr IVPB Daily Piperacillin-Tazobactam 3 62.5 75.0 .375 gm In Dextrose/Water 1 50ml.bag @ 12.5 mls/hr IVPB Q12HR [facility] Rx#: [id number] Sodium Chloride 0.9% 1, 10 000 ml @ 40 mls/hr IV . Q24H [facility] Rx#:[id number] Intake, IV Titration 740.164 6726.565 871.538 Amount Insulin Regular 100 unit 22.258 76.565 21.538 In Sodium Chloride 0.9% 100 ml @ Per Protocol IV .Q0M [facility] Rx#:[id number] Mvi, Adult No.4 with Vit 800 100 K 10 ml Trace (Conc-1Ml/ Dose) 1 ml Potassium Acetate 20 meq Parenteral Electrolytes 20 ml In Amino Acid 5%-D15w 1,000 ml @ 100 mls/hr IV .BY DURATION [facility] Rx#: [id number] Potassium Acetate 20 meq 300 1130 500 Parenteral Electrolytes 20 ml In Amino Acid 5%- D15w 1,000 ml @ 100 mls/ hr IV .BY DURATION [facility] Rx #:[id number] Vancomycin 1,500 mg In 250 Sodium Chloride 0.9% 250 ml @ 125 mls/hr IVPB ONCE ONE Rx#:[id number] Output: Drainage 15 Right Lower Abdomen 15 Urine 1070 1185 1195 Stool 0 Other: Voiding Method Indwelling Catheter Indwelling Catheter Indwelling Catheter ABP, PAP, CO, CI - Last Documented Arterial Blood Pressure 146/54 - Exam Abdomen: Soft, nontender, nondistended, wound clean - Labs CBC & Chem 7: 03/27/17 03:39 03/27/17 03:39 Labs: Abnormal Lab Results - Last 24 Hours (Table) 03/26/17 03/26/17 03/26/17 Range/Units 15:59 17:05 18:00 WBC (3.8-10.6) k/uL RBC (4.30-5.90) m/uL Hgb (13.0-17.5) gm/dL Hct (39.0-53.0) % RDW (11.5-15.5) % Neutrophils # (1.3-7.7) k/uL Chloride (98-107) mmol/L Carbon Dioxide (22-30) mmol/L BUN (9-20) mg/dL Creatinine (0.66-1.25) mg/dL Glucose (74-99) mg/dL POC Glucose (mg/dL) 123 H 171 H 221 H (75-99) mg/dL Calcium (8.4-10.2) mg/dL Phosphorus (2.5-4.5) mg/dL Albumin (3.5-5.0) g/dL 03/26/17 03/26/17 03/26/17 Range/Units 19:14 19:41 20:05 WBC (3.8-10.6) k/uL RBC (4.30-5.90) m/uL Hgb (13.0-17.5) gm/dL Hct (39.0-53.0) % RDW (11.5-15.5) % Neutrophils # (1.3-7.7) k/uL Chloride (98-107) mmol/L Carbon Dioxide (22-30) mmol/L BUN (9-20) mg/dL Creatinine (0.66-1.25) mg/dL Glucose (74-99) mg/dL POC Glucose (mg/dL) 216 H 225 H 220 H (75-99) mg/dL Calcium (8.4-10.2) mg/dL Phosphorus (2.5-4.5) mg/dL Albumin (3.5-5.0) g/dL 03/26/17 03/26/17 03/26/17 Range/Units 21:03 22:00 23:00 WBC (3.8-10.6) k/uL RBC (4.30-5.90) m/uL Hgb (13.0-17.5) gm/dL Hct (39.0-53.0) % RDW (11.5-15.5) % Neutrophils # (1.3-7.7) k/uL Chloride (98-107) mmol/L Carbon Dioxide (22-30) mmol/L BUN (9-20) mg/dL Creatinine (0.66-1.25) mg/dL Glucose (74-99) mg/dL POC Glucose (mg/dL) 180 H 181 H 147 H (75-99) mg/dL Calcium (8.4-10.2) mg/dL Phosphorus (2.5-4.5) mg/dL Albumin (3.5-5.0) g/dL 03/27/17 03/27/17 03/27/17 Range/Units 00:01 01:03 03:02 WBC (3.8-10.6) k/uL RBC (4.30-5.90) m/uL Hgb (13.0-17.5) gm/dL Hct (39.0-53.0) % RDW (11.5-15.5) % Neutrophils # (1.3-7.7) k/uL Chloride (98-107) mmol/L Carbon Dioxide (22-30) mmol/L BUN (9-20) mg/dL Creatinine (0.66-1.25) mg/dL Glucose (74-99) mg/dL POC Glucose (mg/dL) 139 H 135 H 66 L (75-99) mg/dL Calcium (8.4-10.2) mg/dL Phosphorus (2.5-4.5) mg/dL Albumin (3.5-5.0) g/dL 03/27/17 03/27/17 03/27/17 Range/Units 03:06 03:39 03:39 WBC 15.5 H (3.8-10.6) k/uL RBC 2.56 L (4.30-5.90) m/uL Hgb 7.3 L (13.0-17.5) gm/dL Hct 23.6 L (39.0-53.0) % RDW 16.4 H (11.5-15.5) % Neutrophils # 12.7 H (1.3-7.7) k/uL Chloride 111 H (98-107) mmol/L Carbon Dioxide 20 L (22-30) mmol/L BUN 113 H* (9-20) mg/dL Creatinine 3.50 H (0.66-1.25) mg/dL Glucose 143 H (74-99) mg/dL POC Glucose (mg/dL) 64 L (75-99) mg/dL Calcium 7.7 L (8.4-10.2) mg/dL Phosphorus 4.7 H (2.5-4.5) mg/dL Albumin 1.9 L (3.5-5.0) g/dL 03/27/17 03/27/17 03/27/17 Range/Units 03:39 03:41 03:46 WBC (3.8-10.6) k/uL RBC (4.30-5.90) m/uL Hgb (13.0-17.5) gm/dL Hct (39.0-53.0) % RDW (11.5-15.5) % Neutrophils # (1.3-7.7) k/uL Chloride (98-107) mmol/L Carbon Dioxide (22-30) mmol/L BUN (9-20) mg/dL Creatinine (0.66-1.25) mg/dL Glucose (74-99) mg/dL POC Glucose (mg/dL) >600 H >600 H 153 H (75-99) mg/dL Calcium (8.4-10.2) mg/dL Phosphorus (2.5-4.5) mg/dL Albumin (3.5-5.0) g/dL 03/27/17 03/27/17 03/27/17 Range/Units 04:16 05:14 06:09 WBC (3.8-10.6) k/uL RBC (4.30-5.90) m/uL Hgb (13.0-17.5) gm/dL Hct (39.0-53.0) % RDW (11.5-15.5) % Neutrophils # (1.3-7.7) k/uL Chloride (98-107) mmol/L Carbon Dioxide (22-30) mmol/L BUN (9-20) mg/dL Creatinine (0.66-1.25) mg/dL Glucose (74-99) mg/dL POC Glucose (mg/dL) 157 H 184 H 144 H (75-99) mg/dL Calcium (8.4-10.2) mg/dL Phosphorus (2.5-4.5) mg/dL Albumin (3.5-5.0) g/dL 03/27/17 03/27/17 03/27/17 Range/Units 07:05 08:01 12:03 WBC (3.8-10.6) k/uL RBC (4.30-5.90) m/uL Hgb (13.0-17.5) gm/dL Hct (39.0-53.0) % RDW (11.5-15.5) % Neutrophils # (1.3-7.7) k/uL Chloride (98-107) mmol/L Carbon Dioxide (22-30) mmol/L BUN (9-20) mg/dL Creatinine (0.66-1.25) mg/dL Glucose (74-99) mg/dL POC Glucose (mg/dL) 141 H 117 H 133 H (75-99) mg/dL Calcium (8.4-10.2) mg/dL Phosphorus (2.5-4.5) mg/dL Albumin (3.5-5.0) g/dL Microbiology - Last 24 Hours (Table) 03/23/17 08:00 Gram Stain - Final Peritoneal Fluid Body Fluid Culture - Final Assessment and Plan (1) Free intraperitoneal air Narrative/Plan: Continue TPN. Continue antibiotics. Monitor a tachycardia. Repeat CBC tomorrow. Repeat swallow evaluation tomorrow. Status: Acute
[2017-03-27 16:25] LABS: Glucose,Whole Blood 262 mg/dL (75-99)
[2017-03-27 16:26] LABS: Glucose,Whole Blood 260 mg/dL (75-99)
[2017-03-27 20:07] LABS: Glucose,Whole Blood 278 mg/dL (75-99)
--- NOTE | 2017-03-27 22:48 | P.PN ---
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 [facility] most recently under the care of Dr. Gordon and discharged in August 2016 after a dehiscence of the right below the knee wound healed. Patient presented to [facility] emergency center on March 16 with generalized weakness and abdominal pain for at least couple days up to 1 week with concerns for constipation and was taking laxatives with no improvement. Patient also had decreased appetite and pain was gradually worsening. There was nausea without vomiting. Chest x-ray showed pneumoperitoneum and left basilar atelectasis with no heart failure. Abdominal films also showed pneumoperitoneum. CAT scan of the abdomen and pelvis without contrast and was found have a large pneumoperitoneum, large ascites, large nonobstructive right renal calculi and possible gallbladder thickening with concern for gangrenous gallbladder. Patient was taken to the OR by Dr. Wiley for exploratory laparotomy with repair of perforated peptic ulcer and open cholecystectomy. Patient was then transferred to the intensive care unit where he remains intubated and on mechanical ventilation. Patient presented with severe sepsis and septic shock status post 7 1/2 liters of fluid currently on levo at 20 mics. He did not have a urine output for the day shift thus far. O2 needs have decreased however. He is currently on IV antimicrobials in the form of fluconazole, Flagyl and Zosyn. Blood cultures status received and urine culture status received. C. difficile toxin was negative. Patient is noted to have a stage II decubitus ulcer on his buttocks that was present on admission. Today there has been improvement. He has now been extubated. Weaned vasopressor therapy. Responded to fluids. Urine output is improved. acute renal failure improving Patient is awake and comfortable. Objective - Vital Signs Vital signs: Vital Signs Temp 98.5 F 03/27/17 20:00 Pulse 105 H 03/27/17 22:00 Resp 25 H 03/27/17 22:00 BP 128/60 03/27/17 22:00 Pulse Ox 97 03/27/17 22:00 Intake & Output 03/27/17 03/27/17 03/28/17 06:59 18:59 06:59 Intake Total 2351.565 1111.538 30 Output Total 1185 2435 400 Balance 1166.565 -1323.462 -370 Weight 93.2 kg 93.2 kg Intake: IV 345.0 180 30 D5W 60 130 30 Fat Emulsion 20% 250 ml 210 In Empty Bag 1 bag @ 21 mls/hr IV DAILY@1400 [facility] Rx#:[id number] Fluconazole in NaCl Iso- 50 Osm 100mg in Saline 1 50ml.bag @50mls/hr IVPB Daily Piperacillin-Tazobactam 3 75.0 .375 gm In Dextrose/Water 1 50ml.bag @ 12.5 mls/hr IVPB Q12HR [facility] Rx#: [id number] Intake, IV Titration 2006.565 871.538 Amount Insulin Regular 100 unit 76.565 21.538 In Sodium Chloride 0.9% 100 ml @ Per Protocol IV .Q0M [facility] Rx#:[id number] Mvi, Adult No.4 with Vit 800 100 K 10 ml Trace (Conc-1Ml/ Dose) 1 ml Potassium Acetate 20 meq Parenteral Electrolytes 20 ml In Amino Acid 5%-D15w 1,000 ml @ 100 mls/hr IV .BY DURATION [facility] Rx#: [id number] Potassium Acetate 20 meq 1130 500 Parenteral Electrolytes 20 ml In Amino Acid 5%- D15w 1,000 ml @ 100 mls/ hr IV .BY DURATION [facility] Rx #:[id number] Vancomycin 1,500 mg In 250 Sodium Chloride 0.9% 250 ml @ 125 mls/hr IVPB ONCE ONE Rx#:[id number] Oral 60 Output: Drainage 90 Right Lower Abdomen 90 Urine 1185 2345 400 Stool 0 Other: Voiding Method Indwelling Catheter Indwelling Catheter Indwelling Catheter ABP, PAP, CO, CI - Last Documented Arterial Blood Pressure 146/54 - Exam Gen: This is an obese 66-year-old male. He is seen in the ICU, he has been extubated. Patient appears comfortable and in no acute distress. HEENT: Head is atraumatic, normocephalic. Oral ET and gastric tube in place. White coating noted on the tongue. Mucous membranes are slightly dry.. NECK: Supple. No JVD. No lymphadenopathy. Trachea midline. LUNGS: There is symmetrical air entry bilaterally. Coarse crackles are scattered the lung kraft. Subtly improved when he coughs. Scattered wheezes are also heard. HEART: Regular rate and rhythm. No murmur. Patient is tachycardic. ABDOMEN: Soft. Bowel sounds are not present. No masses. No tenderness. LOUISA drain to the right upper abdomen is draining serosanguineous fluid. Dressing to the right upper quadrant and midline are in place with no breakthrough drainage or bleeding. Castellanos catheter in place draining clear pinky urine. EXTREMITIES: No pedal edema to the left lower extremity. Patient has amputations of toes 2 through 5 on the left and a right below the knee amputation. All extremities are cool to the touch. No mottling noted. NEUROLOGICAL: Patient no longer sedated. Eyes are open. Seems comfortable. Denied pain. - Labs CBC & Chem 7: 03/27/17 03:39 03/27/17 03:39 Labs: Abnormal Lab Results - Last 24 Hours (Table) 03/26/17 03/27/17 03/27/17 Range/Units 23:00 00:01 01:03 WBC (3.8-10.6) k/uL RBC (4.30-5.90) m/uL Hgb (13.0-17.5) gm/dL Hct (39.0-53.0) % RDW (11.5-15.5) % Neutrophils # (1.3-7.7) k/uL Chloride (98-107) mmol/L Carbon Dioxide (22-30) mmol/L BUN (9-20) mg/dL Creatinine (0.66-1.25) mg/dL Glucose (74-99) mg/dL POC Glucose (mg/dL) 147 H 139 H 135 H (75-99) mg/dL Calcium (8.4-10.2) mg/dL Phosphorus (2.5-4.5) mg/dL Albumin (3.5-5.0) g/dL 03/27/17 03/27/17 03/27/17 Range/Units 03:02 03:06 03:39 WBC (3.8-10.6) k/uL RBC (4.30-5.90) m/uL Hgb (13.0-17.5) gm/dL Hct (39.0-53.0) % RDW (11.5-15.5) % Neutrophils # (1.3-7.7) k/uL Chloride 111 H (98-107) mmol/L Carbon Dioxide 20 L (22-30) mmol/L BUN 113 H* (9-20) mg/dL Creatinine 3.50 H (0.66-1.25) mg/dL Glucose 143 H (74-99) mg/dL POC Glucose (mg/dL) 66 L 64 L (75-99) mg/dL Calcium 7.7 L (8.4-10.2) mg/dL Phosphorus 4.7 H (2.5-4.5) mg/dL Albumin 1.9 L (3.5-5.0) g/dL 03/27/17 03/27/17 03/27/17 Range/Units 03:39 03:39 03:41 WBC 15.5 H (3.8-10.6) k/uL RBC 2.56 L (4.30-5.90) m/uL Hgb 7.3 L (13.0-17.5) gm/dL Hct 23.6 L (39.0-53.0) % RDW 16.4 H (11.5-15.5) % Neutrophils # 12.7 H (1.3-7.7) k/uL Chloride (98-107) mmol/L Carbon Dioxide (22-30) mmol/L BUN (9-20) mg/dL Creatinine (0.66-1.25) mg/dL Glucose (74-99) mg/dL POC Glucose (mg/dL) >600 H >600 H (75-99) mg/dL Calcium (8.4-10.2) mg/dL Phosphorus (2.5-4.5) mg/dL Albumin (3.5-5.0) g/dL 03/27/17 03/27/17 03/27/17 Range/Units 03:46 04:16 05:14 WBC (3.8-10.6) k/uL RBC (4.30-5.90) m/uL Hgb (13.0-17.5) gm/dL Hct (39.0-53.0) % RDW (11.5-15.5) % Neutrophils # (1.3-7.7) k/uL Chloride (98-107) mmol/L Carbon Dioxide (22-30) mmol/L BUN (9-20) mg/dL Creatinine (0.66-1.25) mg/dL Glucose (74-99) mg/dL POC Glucose (mg/dL) 153 H 157 H 184 H (75-99) mg/dL Calcium (8.4-10.2) mg/dL Phosphorus (2.5-4.5) mg/dL Albumin (3.5-5.0) g/dL 03/27/17 03/27/17 03/27/17 Range/Units 06:09 07:05 08:01 WBC (3.8-10.6) k/uL RBC (4.30-5.90) m/uL Hgb (13.0-17.5) gm/dL Hct (39.0-53.0) % RDW (11.5-15.5) % Neutrophils # (1.3-7.7) k/uL Chloride (98-107) mmol/L Carbon Dioxide (22-30) mmol/L BUN (9-20) mg/dL Creatinine (0.66-1.25) mg/dL Glucose (74-99) mg/dL POC Glucose (mg/dL) 144 H 141 H 117 H (75-99) mg/dL Calcium (8.4-10.2) mg/dL Phosphorus (2.5-4.5) mg/dL Albumin (3.5-5.0) g/dL 03/27/17 03/27/17 03/27/17 Range/Units 12:03 16:20 16:24 WBC (3.8-10.6) k/uL RBC (4.30-5.90) m/uL Hgb (13.0-17.5) gm/dL Hct (39.0-53.0) % RDW (11.5-15.5) % Neutrophils # (1.3-7.7) k/uL Chloride (98-107) mmol/L Carbon Dioxide (22-30) mmol/L BUN (9-20) mg/dL Creatinine (0.66-1.25) mg/dL Glucose (74-99) mg/dL POC Glucose (mg/dL) 133 H 262 H 260 H (75-99) mg/dL Calcium (8.4-10.2) mg/dL Phosphorus (2.5-4.5) mg/dL Albumin (3.5-5.0) g/dL 03/27/17 Range/Units 20:04 WBC (3.8-10.6) k/uL RBC (4.30-5.90) m/uL Hgb (13.0-17.5) gm/dL Hct (39.0-53.0) % RDW (11.5-15.5) % Neutrophils # (1.3-7.7) k/uL Chloride (98-107) mmol/L Carbon Dioxide (22-30) mmol/L BUN (9-20) mg/dL Creatinine (0.66-1.25) mg/dL Glucose (74-99) mg/dL POC Glucose (mg/dL) 278 H (75-99) mg/dL Calcium (8.4-10.2) mg/dL Phosphorus (2.5-4.5) mg/dL Albumin (3.5-5.0) g/dL Microbiology - Last 24 Hours (Table) 03/23/17 08:00 Gram Stain - Final Peritoneal Fluid Body Fluid Culture - Final Laboratory Results WBC 15.5 k/uL (3.8-10.6) H 03/27/17 03:39 RBC 2.56 m/uL (4.30-5.90) L 03/27/17 03:39 Hgb 7.3 gm/dL (13.0-17.5) L 03/27/17 03:39 Hct 23.6 % (39.0-53.0) L 03/27/17 03:39 MCV 92.1 fL (80.0-100.0) 03/27/17 03:39 MCH 28.7 pg (25.0-35.0) 03/27/17 03:39 MCHC 31.1 g/dL (31.0-37.0) 03/27/17 03:39 RDW 16.4 % (11.5-15.5) H 03/27/17 03:39 Plt Count 402 k/uL (150-450) 03/27/17 03:39 Neutrophils % 82 % 03/27/17 03:39 Neutrophils % (Manual) 61.6 % 03/17/17 04:20 Band Neutrophils % 15.2 % 03/17/17 04:20 Lymphocytes % 8 % 03/27/17 03:39 Lymphocytes % (Manual) 18.2 % 03/17/17 04:20 Monocytes % 5 % 03/27/17 03:39 Monocytes % (Manual) 5.1 % 03/17/17 04:20 Eosinophils % 1 % 03/27/17 03:39 Basophils % 1 % 03/27/17 03:39 Metamyelocytes % 4.0 % 03/16/17 22:50 Neutrophils # 12.7 k/uL (1.3-7.7) H 03/27/17 03:39 Neutrophils # (Manual) 7.1 k/uL (1.3-7.7) 03/17/17 04:20 Lymphocytes # 1.3 k/uL (1.0-4.8) 03/27/17 03:39 Lymphocytes # (Manual) 1.7 k/uL (1.0-4.8) 03/17/17 04:20 Monocytes # 0.8 k/uL (0-1.0) 03/27/17 03:39 Monocytes # (Manual) 0.5 k/uL (0-1.0) 03/17/17 04:20 Eosinophils # 0.2 k/uL (0-0.7) 03/27/17 03:39 Basophils # 0.1 k/uL (0-0.2) 03/27/17 03:39 Nucleated RBCs 0 /100 WBC (0-0) 03/17/17 04:20 Manual Slide Review Performed 03/17/17 04:20 Toxic Granulation Present 03/16/17 16:30 RBC Morphology Normal 03/16/17 16:30 Hypochromasia Marked 03/22/17 06:00 Anisocytosis Slight 03/27/17 03:39 PT 10.4 sec (9.0-12.0) 03/16/17 16:30 INR 1.0 (<1.2) 03/16/17 16:30 APTT 22.1 sec (22.0-30.0) 03/16/17 16:30 Sample Site whiterocks 03/22/17 11:43 ABG pH 7.35 (7.35-7.45) 03/22/17 11:43 ABG pCO2 25 mmHg (35-45) L 03/22/17 11:43 ABG pO2 165 mmHg (83-108) H 03/22/17 11:43 ABG HCO3 13 mmol/L (21-25) L 03/22/17 11:43 ABG Total CO2 14 mmol/L (19-24) L 03/22/17 11:43 ABG O2 Saturation 99.0 % (94-97) H 03/22/17 11:43 ABG Base Excess -11.1 mmol/L 03/22/17 11:43 ABG Hematocrit 29 % (34.0-46.0) L 03/16/17 21:12 ABG Lactic Acid 0.7 mmol/L (0.5-1.6) 03/20/17 04:45 VBG pH 7.25 (7.31-7.41) L 03/16/17 16:30 VBG pCO2 29 mmHg (37-51) L 03/16/17 16:30 VBG HCO3 12 mmol/L (24-28) L 03/16/17 16:30 FiO2 40 % 03/22/17 11:43 Sodium 142 mmol/L (137-145) 03/27/17 03:39 Potassium 4.5 mmol/L (3.5-5.1) 03/27/17 03:39 Chloride 111 mmol/L (98-107) H 03/27/17 03:39 Carbon Dioxide 20 mmol/L (22-30) L 03/27/17 03:39 Anion Gap 11 mmol/L 03/27/17 03:39 BUN 113 mg/dL (9-20) H* 03/27/17 03:39 Creatinine 3.50 mg/dL (0.66-1.25) H 03/27/17 03:39 Est GFR (MDRD) Af Amer 21 (>60 ml/min/1.73 sqM) 03/27/17 03:39 Est GFR (MDRD) Non-Af 18 (>60 ml/min/1.73 sqM) 03/27/17 03:39 Glucose 143 mg/dL (74-99) H 03/27/17 03:39 POC Glucose (mg/dL) 278 mg/dL (75-99) H 03/27/17 20:04 POC Glu [employer] T[employer] ID Renetta Jorgensen 03/27/17 20:[address] Glu mg/dL 174 mg/dL 03/17/17 04:20 Hemoglobin A1c 7.7 % (4.2-6.1) H 03/17/17 04:20 Lactic Ac Sepsis Rflx Y 03/16/17 16:57 Plasma Lactic Acid Mario 2.8 mmol/L (0.7-2.0) H* 03/16/17 22:42 Calcium 7.7 mg/dL (8.4-10.2) L 03/27/17 03:39 Ionized Calcium Valorie 4.8 mg/dL (4.5-5.3) 03/27/17 03:39 Phosphorus 4.7 mg/dL (2.5-4.5) H 03/27/17 03:39 Magnesium 2.2 mg/dL (1.6-2.3) 03/27/17 03:39 Total Bilirubin 1.5 mg/dL (0.2-1.3) H 03/20/17 11:36 AST 19 U/L (17-59) 03/20/17 11:36 ALT 28 U/L (21-72) 03/20/17 11:36 Alkaline Phosphatase 60 U/L (38-126) 03/20/17 11:36 Total Creatine Kinase 216 U/L (55-170) H 03/16/17 16:30 CK-MB (CK-2) 2.9 ng/mL (0.0-2.4) H* 03/16/17 16:30 CK-MB (CK-2) Rel Index 1.3 03/16/17 16:30 Troponin I 0.590 ng/mL (0.000-0.034) H* 03/16/17 16:30 Total Protein 3.4 g/dL (6.3-8.2) L 03/20/17 11:36 Albumin 1.9 g/dL (3.5-5.0) L 03/27/17 03:39 Triglycerides 142 mg/dL (<150) 03/27/17 03:39 TSH 0.672 mIU/L (0.465-4.680) 03/16/17 16:30 Urine Color Dark Yellow 03/16/17 19:00 Urine Appearance Cloudy (Clear) 03/16/17 19:00 Urine pH 5.0 (5.0-8.0) 03/16/17 19:00 Ur Specific [place] 1.017 (1.001-1.035) 03/16/17 19:00 Urine Protein 1+ (Negative) H 03/16/17 19:00 Urine Glucose (UA) 1+ (Negative) H 03/16/17 19:00 Urine Ketones Negative (Negative) 03/16/17 19:00 Urine Blood Trace (Negative) H 03/16/17 19:00 Urine Nitrite Negative (Negative) 03/16/17 19:00 Urine Bilirubin Negative (Negative) 03/16/17 19:00 Urine Urobilinogen <2.0 mg/dL (<2.0) 03/16/17 19:00 Ur Leukocyte Esterase Negative (Negative) 03/16/17 19:00 Urine RBC 15 /hpf (0-5) H 03/16/17 19:00 Urine WBC 4 /hpf (0-5) 03/16/17 19:00 Amorphous Sediment Occasional /hpf (None) H 03/16/17 19:00 Hyaline Casts 110 /lpf (0-2) H 03/16/17 19:00 Random Vancomycin 18.6 ug/mL 03/27/17 03:39 C. difficile (EIA) Intrp Negative (Negative) 03/16/17 23:00 Blood Type A Positive 03/16/17 16:30 Blood Type Recheck No 03/16/17 16:30 Antibody Screen NEGATIVE 03/16/17 16:30 Spec Expiration Date 03/19/2017 - 232903/16/17 16:30 Microbiology 03/23/17 08:00 Peritoneal Fluid Gram Stain - Final 03/23/17 08:00 Peritoneal Fluid Body Fluid Culture - Final 03/16/17 16:30 Blood Blood Culture - Final No Growth after 144 hours 03/18/17 02:25 Sputum Gram Stain - Final 03/18/17 02:25 Sputum Sputum Culture - Final Methicillin resist S. aureus 03/16/17 19:00 Urine,Voided Urine Culture - Final Assessment and Plan (1) Septic shock Narrative/Plan: 66-year-old male with multiple medical troubles with left toe amputations and right below-knee amputation due to his severe peripheral vascular disease. Now presents with a significant bout of sepsis from the abdomen. Has evidence of pneumoperitoneum. Perforated gastric ulcer was noted. As well as gangrenous cholecystitis. He's had the surgical incision is noted. Remains profoundly ill with septic shock. For sepsis from the abdominal source in the condition of the perforation and gangrenous cholecystitis continue with antifungal therapy with fluconazole. Piperacillin tazobactam is being dosed per his renal failure. Has a history of MRSA as well as VRE infection. Daptomycin was being utilized. However MRSA was found in the pulmonary secretions. Was changed to vancomycin and that no VRE has now been isolated from his abdominal cultures. Concerns related to his acute renal failure. Will be monitored closely. Cultures are in process. Supportive care continues. Doing well after extubation is awake and comfortable. Not complaining of abdominal pain. Status: Acute (2) Gastric perforation Status: Acute (3) Cholecystitis Status: Acute
[2017-03-28] MEDS ORDERED: INSULIN REGULAR BOLUS (FROM DRIP BAG) IV PRN (00:08)
[2017-03-28] MEDS: HEPARIN SODIUM,PORCINE 5,000 UNIT/ML 1 ML VIAL SQ SCH ×4 (00:14→23:02)
[2017-03-28] MEDS: PIPERACILLIN-TAZOBACTAM 3.375 GM in DEXTROSE/WATER 1 50ML.BAG IVPB SCH ×4 (00:14→23:02)
[2017-03-28 00:15] LABS: Glucose,Whole Blood 328 mg/dL (75-99)
[2017-03-28] MEDS: 1: MVI, ADULT NO.4 WITH VIT K 10 ML, TRACE (CONC-1ML/DOSE) 1 ML, POTASSIUM ACETATE 20 ME IV SCH ×15 (00:40→22:42)
[2017-03-28] MEDS: INSULIN REGULAR 100 UNIT in SODIUM CHLORIDE 0.9% 100 ML IV SCH ×2 (00:45→13:24)
[2017-03-28 01:07] LABS: Glucose,Whole Blood 352 mg/dL (75-99)
[2017-03-28 01:35] LABS: Glucose,Whole Blood 277 mg/dL (75-99)
[2017-03-28 02:12] LABS: Glucose,Whole Blood 243 mg/dL (75-99)
[2017-03-28 03:04] LABS: Glucose,Whole Blood 198 mg/dL (75-99)
[2017-03-28 04:08] LABS: Glucose,Whole Blood 172 mg/dL (75-99)
[2017-03-28 05:01] LABS: Basophils # (A) 0.1 k/uL (0-0.2); Basophils % (A) 1 %; CH 29.3; Eosinophils # (A) 0.1 k/uL (0-0.7); Eosinophils % (A) 1 %; HCT 22.4 % (39.0-53.0); HDW 2.82; Hypochromasia Slight; Luc % (Auto) 4; Lymphocytes # (A) 1.2 k/uL (1.0-4.8); Lymphocytes % (A) 9 %; MCH 28.9 pg (25.0-35.0); MCHC 31.3 g/dL (31.0-37.0); MCV 92.4 fL (80.0-100.0); Mean Platelet Volume 10.3; Monocytes # (A) 0.7 k/uL (0-1.0); Monocytes % (A) 5 %; Neutrophils # (A) 11.1 k/uL (1.3-7.7); Neutrophils % (A) 81 %; RBC 2.43 m/uL (4.30-5.90); RDW 15.7 % (11.5-15.5); WBC 13.7 k/uL (3.8-10.6); WBC (Perox) 14.15
[2017-03-28 05:06] LABS: Glucose,Whole Blood 142 mg/dL (75-99)
[2017-03-28 05:10] LABS: Calcium 7.8 mg/dL (8.4-10.2); Magnesium 2.2 mg/dL (1.6-2.3); Phosphorous 4.2 mg/dL (2.5-4.5); Potassium 4.2 mmol/L (3.5-5.1)
[2017-03-28 06:03] LABS: Glucose,Whole Blood 118 mg/dL (75-99)
[2017-03-28 07:05] LABS: Glucose,Whole Blood 107 mg/dL (75-99)
[2017-03-28 07:50] LABS: Glucose,Whole Blood 115 mg/dL (75-99)
[2017-03-28] MEDS: IPRATROPIUM-ALBUTEROL 3 ML NEB INHALATION SCH ×4 (07:57→19:59)
[2017-03-28] MEDS: PANTOPRAZOLE 40 MG/10 ML VIAL IV SCH ×2 (08:51→21:24)
[2017-03-28] MEDS: FLUCONAZOLE IN NACL,ISO-OSM 100 MG in SALINE 1 50ML.BAG IVPB SCH (08:51)
--- NOTE | 2017-03-28 08:59 | XR ---
EXAMINATION TYPE: XR chest 1V portable DATE OF EXAM: 03/28/2017 COMPARISON: Prior chest x-ray 03/27/2017 HISTORY: Shortness of breath TECHNIQUE: Single frontal view of the chest is obtained. FINDINGS: Bilateral airspace disease is present, there is basilar increased density in the heart is enlarged although patient is rotated. No evident pneumothorax. Right jugular central venous catheter has been removed. Distal tip of the PICC line is within the right atrium. There are overlying cardiac leads. IMPRESSION: Correlate for volume overload, congestive heart failure. Pneumonia not excluded. Follow- up recommended.
[2017-03-28 09:24] LABS: Glucose,Whole Blood 154 mg/dL (75-99)
[2017-03-28 10:18] LABS: Glucose,Whole Blood 204 mg/dL (75-99)
[2017-03-28 11:19] LABS: Glucose,Whole Blood 223 mg/dL (75-99)
--- NOTE | 2017-03-28 11:56 | P.PN ---
Subjective Principal diagnosis: Acute abdominal sepsis and perforation of peptic ulcer. A 66-year-old male patient who came into the intensive care unit after undergoing expiratory laparotomy and repair of a perforated peptic ulcer with a modified Don patch and open cholecystectomy. Surgery was done last night and the patient was brought into the intensive care unit intubated on a mechanical ventilator. According to the reported history the patient was having 3-4 days history of a vague abdominal pain. This being gradually got worse. The patient was also having constipation. He had some nausea without vomiting. Appetite was diminished. No bright red blood per rectum. The pain was mainly over the central abdomen. No history of any peptic ulcer disease or diverticular disease. The x-ray of the abdomen in the emergency department showed pneumoperitoneum and the CAT scan confirmed the presence of a large volume of free air. The gallbladder was also thickened. The majority of the air was in the upper abdomen. Intraoperatively, the patient was found to have a perforated peptic ulcer and a gangrenous gallbladder. The patient is currently in the intensive care unit. The patient has received a total of 7 L of IV fluids. He has chronic renal failure and had developed acute kidney injury on top of chronic renal insufficiency and currently is oliguric producing only 5-10 mL an hour of urine output. The patient is intubated on a mechanical ventilator. The patient on assist control mode at the rate of 10, tidal volume 450, FiO2 of 40% and a PEEP of 5. His blood. From this morning showed a pH of 7.31 with a pCO2 of 27 and pO2 of 198 and based on that the FiO2 was weaned down. Chest x-ray shows no pneumothorax or pneumoperitoneum. ET tube is in a good location. Hemodynamically, the patient was doing poorly. He was in septic shock. He was tachycardic with a heart rate in the 1:30 range. This improved with fluid resuscitation his current heart rate is sinus at 110. He also was on higher doses of pressors and norepinephrine infusion was running at 25 mics and currently is down to 50 mics. He is covered with a combination of IV Zosyn, IV Diflucan and IV Flagyl. He is afebrile for now. Is sedated with Diprivan. He has a below-knee amputation on the right lower extremity and the feet on the left lower extremity shows marked diminished pulses at is obtainable by Doppler. Lactic acid level was 5.4 at time of admission is currently down to 2.7. He has a right IJ triple-lumen catheter. He has a right upper extremity radial art line. He also has a LOUISA drain in his right lower quadrant area. On 03/18/2017 I'm seeing this patient in the follow-up. The patient remains intubated on a mechanical ventilator. He remains an assist-control mode of ventilation at a tidal volume 450, rate of 24, FiO2 of 40% and a PEEP of 5. His blood gases from this morning showed a pH of 7.26 with a pCO2 of 30 and pO2 of 155. Chest x-ray from this morning shows small bilateral pleural effusions, ET tube is in a good location, NG tube is in a good location and there is no acute pulmonary infiltrates or consolidations. Hemodynamically, the patient is still pressor dependent at 15 mics. Overnight he had to be as high as 20 mics and then he got weaned again down to 15 g of norepinephrine infusion. Urine output is gradually improving. Over the past 12 hours he produced approximately 50 mL of urine output. The patient is still having intermittent renal function and the creatinine still elevated at 4.8 which is comparable to yesterday. Rest of the electrodes are within normal. The patient is still acidotic with a bicarb level of 13. He received a total of 3 L of normal saline and 2 A of 12.5 g of albumin. He is still on a combination of Zosyn, Flagyl and Diflucan. All of the cultures of been negative. He remains nothing by mouth. Surgical wound site is clean and intact. LOUISA drain is draining approximately 50 mL of serosanguineous material. On 03/19/2017 the patient remains intubated on a mechanical ventilator. He is still respiratory failure. He is still in shock. He remains assist-control mode of ventilation with essentially the same vent settings. He is still requiring pressors and levo fed is running somewhere between 8-10 mics. He is afebrile. Echocardiogram was done at the bedside and showed a preserved LV function without any signs of heart failure. Remains sedated on Diprivan. A sedation holiday will be given to him today and try to lower down agree off sedation if possible. Remains on broad-spectrum antibiotics. Surgical wound site is dry clean and intact. Continues to be an acute kidney injury on top of chronic renal failure. No major improvement in the renal function although the patient has become nonoliguric at this point. He is producing adequate amount of urine output. His been aggressively resuscitated IV fluids and colloids and he is in a positive fluid balance and he has demonstrated some edema both in the upper and lower extremities. He remains acidotic. A follow-up lactic acid level will be obtained. Remains nothing by mouth. No clearance from surgery for enteral feeding. No TPN initiated yet. The patient is seen again today 03/20/2017 in follow-up in the intensive care unit. He remains intubated on the mechanical ventilator and assist control mode with a rate of 24, tidal volume 450, FiO2 40% and a PEEP of 5. Morning blood gases reveal a P O2 170, pCO2 of 26 and a pH of 7.20. This was done on 40 % FiO2. He is currently off sedation. He is fluttering his eyelids open but not following any commands at this point. He remains on norepinephrine currently at 3 mcg/m. He is also on a 0.9 normal saline at 40 miles per hour. His chest x-ray does show overall stable findings, there is low lung volumes with small bilateral pleural effusions and basilar atelectasis. His sputum culture reveals methicillin-resistant Staphylococcus aureus. Blood culture reveals no growth to date. He remains on vancomycin and metronidazole. He did have 150 MLS returned from the gastric tube which remains to suction. He does remain acidotic with a bicarb of 9. Chloride is 123. Current BUN 83, creatinine 4.41. The patient is seen again today 03/21/2017 in follow-up in the intensive care unit. He remains intubated on mechanical ventilator at a rate of 24, tidal volume 450, FiO2 40% and a PEEP of 5. Morning blood gases reveal a pH of 7.30, pCO2 of 26, pO2 of 163. The patient does remain off sedation and does open his eyes and follows simple commands. He is quite weak. He is currently off pressors. His white count is improving currently 14.1. Hemoglobin stable at 8.5. Sodium 147, chloride 124, bicarb improved to 11. Creatinine remains high at 4.70. He had been initiated on a bicarbonate drip yesterday to improve his acidosis.. On 03/22/2017 the patient is being seen in follow-up. The patient was taken off sedation this morning and he was quite awake. Bit lethargic yet arousable. He was moving extremities and responding to simple commands. He was off pressors. Renal function remains impaired however the patient was producing adequate amount of urine output. An ongoing issue was his underlying metabolic acidosis. He was placed on a bicarb drip briefly however based on the absence of significant bicarbonate stock in the hospital day infusion was stopped. He is still on TPN for nutritional support. He is receiving acetate through the TPN. Currently is on a mechanical ventilator. His assist-control at the rate of 24, tidal volume 450, FiO2 of 40% and a PEEP of 5. Chest x-rays showing small bilateral pleural effusion and ET tube is in good location. The blood gases from earlier this morning showed a pH of 7.32 with a pCO2 of 24 and pO2 155. Based on this, check his weaning parameters and he had a rapid shallow breathing index of less than 50. I give the patient a spontaneous breathing trial for a total of 45 minutes and subsequent blood gases showed a pH of 7.35 with a pCO2 of 25 and pO2 of 165. I give the patient 2 A of bicarb for a bicarb level of 14. Subsequently I extubated the patient. Postextubation, he held himself well. No tachypnea. No respiratory distress. NG tube still in place. The patient's BUN is at 97 creatinine is at 4.5. He was given Lasix IV. He is in significant fluid overload including edema in the lower extremities in the scrotum. Antibiotic coverage includes a combination of Zosyn , daptomycin and Diflucan. Sputum at shown MRSA. 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 Upon subsequent follow-up, daptomycin was discontinued and the patient was switched to vancomycin. On 03/23/2017 the patient is being seen in follow-up. The patient was successfully extubated yesterday and currently is on oxygen at room air. Pulse ox is above 90%. He has an MRSA in the sputum which is probably a colonizer. He is still on broad-spectrum antibiotics. The surgical wound site is clean. Bowel sounds are absent. He remains on TPN for nutritional support. He is bicarb level is gradually improving it's up to 16. He still has extensive edema both in upper and lower extremities and he also edema in his scrotum. I started him on Lasix 40 mg every 12 hours and he is producing approximately 3 L of urine output. Nevertheless, that fluid balance remains positive. He is on a combination of vancomycin, Zosyn and Diflucan for now. He is on TPN for nutritional support. He is on insulin drip at 8 units an hour. He is having some purulent drainage from the LOUISA drain and this was noted this morning. The material will be sent for culture. Afebrile. Surgeries on the case. Awake yet lethargic. Comfortable. On 03/24/2017, patient remains off mechanical ventilation, he was eventually extubated 2 days ago, and he is on room air. Remains on broad-spectrum antibiotics, surgical wound seems to be relatively clean, bowel sounds remain absent, patient is presently on TPN for nutritional support. Continues to have extensive edema in upper or lower extremities and lower extremities and in the scrotal area. Remains on diuretics with good and excellent urine output. Patient is on vancomycin and Zosyn and Diflucan. He is also on insulin drip. WBC count is 15.0 hemoglobin is 8.5. BUN is 105 creatinine is down to 3.71 and bicarb is 19. On 03/25/2017, patient seems to be doing better, he seems to be dehydrated,/ intravascularly depleted, but significant amount of swelling noted in his lower extremities and in the scrotal area. Lips are extremely dry. Renal functioning continues to improve, but still significantly abnormal, hence I will go ahead and cut down on diuretics today. Patient seems to be appropriate , in no distress, hemodynamically stable, afebrile. Patient is on room air with O2 sat of 97%, and his blood pressure is 105/51. BUN is 115 creatinine is down to 3.50. Hemoglobin is 8.3 with WBC count of 15.8. Latex are normal. On 03/26/2017, patient is basically about the same. Denies any specific complaints, but he seems weak, frail, and pale. He also seems dehydrated with very dry mucous membranes noted. Patient remains nonoliguric with acute on chronic kidney disease creatinine is 3.5 today. Patient was seen by nephrology today, and he will be started on oral sodium bicarb, upper GI scheduled to be done today, patient is also receiving potassium acetate, and no emergent need for renal replacement at this time. Aranesp was added. CBC showed a hemoglobin of 8.1 WBC count is 18.0. Basic metabolic profile was reviewed, BUN is 114 creatinine is 3.60 today. Slightly worse compared to yesterday when it was 3.5 yesterday. Reevaluated on 03/27/2017, patient is overall about the same, seems to be slightly more awake and more responsive today compared to the last few days. But overall he remains weak frail and pale. Continues to have good urine output , labs were reviewed hemoglobin is 7.3 today, WBC count is 15.5. Electrolytes and renal profile were noted, BUN is 113 creatinine is 3.50 holding the same as the last couple of days. All labs were reviewed, chest x-ray was also reviewed , and it showed improved small pleural effusion and some bibasilar atelectasis. Reevaluated today on 03/28/2017, patient is slightly more awake compared to yesterday, continues to remain generally weak, looks fatigued, pale looking, hemoglobin is down to 7.0, hence I believe considering his overall clinical status the patient will likely benefit from a unit of packed RBCs which will be given today. Urine output seems to be adequate, he has been in a negative balance over the last 24 hours. Swelling seems to be improving especially in the lower extremities and in the scrotal area. But not resolved. Chest x-ray is showing more atelectasis at the bases, no clear-cut evidence of pneumonia. Patient remains on antibiotics for his abdominal sepsis. All labs were reviewed hemoglobin is 7.0 BUN is 108 creatinine 3.50 holding. Blood sugar remains a bit elevated, patient is back on insulin drip as of last night. Objective - Vital Signs Vital signs: Vital Signs Temp 98.6 F 03/28/17 11:00 Pulse 101 H 03/28/17 11:39 Resp 26 H 03/28/17 11:00 BP 128/63 03/28/17 11:00 Pulse Ox 95 03/28/17 11:00 Intake & Output 03/27/17 03/28/17 03/28/17 18:59 06:59 18:59 Intake Total 2152.538 1235.864 409.803 Output Total 2435 1215 680 Balance -282.462 20.864 -270.197 Weight 93.2 kg 92.2 kg 92.2 kg Intake: IV 180 170 150 0.9 at 20 ml/hr 80 D5W 130 170 20 Fluconazole in NaCl Iso- 50 50 Osm 100mg in Saline 1 50ml.bag @50mls/hr IVPB Daily Intake, IV Titration 1487.885 7726.864 19.803 Amount Insulin Regular 100 unit 21.538 In Sodium Chloride 0.9% 100 ml @ Per Protocol IV .Q0M [facility] Rx#:[id number] Insulin Regular 100 unit 35.864 19.803 In Sodium Chloride 0.9% 100 ml @ Per Protocol IV .Q0M [facility] Rx#:[id number] Mvi, Adult No.4 with Vit 1141 K 10 ml Trace (Conc-1Ml/ Dose) 1 ml Potassium Acetate 20 meq Parenteral Electrolytes 20 ml In Amino Acid 5%-D15w 1,000 ml @ 100 mls/hr IV .BY DURATION [facility] Rx#: [id number] Potassium Acetate 20 meq 500 1030 Parenteral Electrolytes 20 ml In Amino Acid 5%- D15w 1,000 ml @ 100 mls/ hr IV .BY DURATION [facility] Rx #:[id number] Vancomycin 1,500 mg In 250 Sodium Chloride 0.9% 250 ml @ 125 mls/hr IVPB ONCE ONE Rx#:[id number] Oral 60 240 Output: Drainage 90 210 Right Lower Abdomen 90 210 Urine 2345 1215 470 Stool 0 Other: Voiding Method Indwelling Catheter Indwelling Catheter Indwelling Catheter ABP, PAP, CO, CI - Last Documented Arterial Blood Pressure 146/54 - Exam Physical Exam: Revealed a 66-year-old white male, pale looking, in no distress. HEENT:[Neck is supple.] [No neck masses.] [No thyromegaly.] [No JVD.] Mucous membranes seem to be extremely dry. Chest: [Diminished breath sounds at the bases no crackles or rhonchi or wheezes. ] Cardiac Exam: [Normal S1 and S2, no S3 gallop, no murmur.] Abdomen: [Postsurgical, Soft, likely tender to palpation,, no megaly, no rebound, no guarding, managed bowel sounds. Surgical incision seems to be clean , drains were noted. Cultures from the LOUISA drain is negative so far. Extremities: [2 + bipedal edema, no clubbing, no cyanosis.] Right Below amputation was noted.] Neurological Exam: Generally weak and frail, but no focal neurologic deficit is noted. - Labs CBC & Chem 7: 03/28/17 04:45 03/28/17 04:45 Labs: Abnormal Lab Results - Last 24 Hours (Table) 03/27/17 03/27/17 03/27/17 Range/Units 12:03 16:20 16:24 WBC (3.8-10.6) k/uL RBC (4.30-5.90) m/uL Hgb (13.0-17.5) gm/dL Hct (39.0-53.0) % RDW (11.5-15.5) % Neutrophils # (1.3-7.7) k/uL Chloride (98-107) mmol/L Carbon Dioxide (22-30) mmol/L BUN (9-20) mg/dL Creatinine (0.66-1.25) mg/dL Glucose (74-99) mg/dL POC Glucose (mg/dL) 133 H 262 H 260 H (75-99) mg/dL Calcium (8.4-10.2) mg/dL 03/27/17 03/28/17 03/28/17 Range/Units 20:04 00:01 01:05 WBC (3.8-10.6) k/uL RBC (4.30-5.90) m/uL Hgb (13.0-17.5) gm/dL Hct (39.0-53.0) % RDW (11.5-15.5) % Neutrophils # (1.3-7.7) k/uL Chloride (98-107) mmol/L Carbon Dioxide (22-30) mmol/L BUN (9-20) mg/dL Creatinine (0.66-1.25) mg/dL Glucose (74-99) mg/dL POC Glucose (mg/dL) 278 H 328 H 352 H (75-99) mg/dL Calcium (8.4-10.2) mg/dL 03/28/17 03/28/17 03/28/17 Range/Units 01:33 02:11 03:02 WBC (3.8-10.6) k/uL RBC (4.30-5.90) m/uL Hgb (13.0-17.5) gm/dL Hct (39.0-53.0) % RDW (11.5-15.5) % Neutrophils # (1.3-7.7) k/uL Chloride (98-107) mmol/L Carbon Dioxide (22-30) mmol/L BUN (9-20) mg/dL Creatinine (0.66-1.25) mg/dL Glucose (74-99) mg/dL POC Glucose (mg/dL) 277 H 243 H 198 H (75-99) mg/dL Calcium (8.4-10.2) mg/dL 03/28/17 03/28/17 03/28/17 Range/Units 04:05 04:45 04:45 WBC 13.7 H (3.8-10.6) k/uL RBC 2.43 L (4.30-5.90) m/uL Hgb 7.0 L* (13.0-17.5) gm/dL Hct 22.4 L (39.0-53.0) % RDW 15.7 H (11.5-15.5) % Neutrophils # 11.1 H (1.3-7.7) k/uL Chloride 111 H (98-107) mmol/L Carbon Dioxide 21 L (22-30) mmol/L BUN 108 H* (9-20) mg/dL Creatinine 3.50 H (0.66-1.25) mg/dL Glucose 151 H (74-99) mg/dL POC Glucose (mg/dL) 172 H (75-99) mg/dL Calcium 7.8 L (8.4-10.2) mg/dL 03/28/17 03/28/17 03/28/17 Range/Units 05:05 06:01 07:04 WBC (3.8-10.6) k/uL RBC (4.30-5.90) m/uL Hgb (13.0-17.5) gm/dL Hct (39.0-53.0) % RDW (11.5-15.5) % Neutrophils # (1.3-7.7) k/uL Chloride (98-107) mmol/L Carbon Dioxide (22-30) mmol/L BUN (9-20) mg/dL Creatinine (0.66-1.25) mg/dL Glucose (74-99) mg/dL POC Glucose (mg/dL) 142 H 118 H 107 H (75-99) mg/dL Calcium (8.4-10.2) mg/dL 03/28/17 03/28/17 03/28/17 Range/Units 07:48 09:22 10:16 WBC (3.8-10.6) k/uL RBC (4.30-5.90) m/uL Hgb (13.0-17.5) gm/dL Hct (39.0-53.0) % RDW (11.5-15.5) % Neutrophils # (1.3-7.7) k/uL Chloride (98-107) mmol/L Carbon Dioxide (22-30) mmol/L BUN (9-20) mg/dL Creatinine (0.66-1.25) mg/dL Glucose (74-99) mg/dL POC Glucose (mg/dL) 115 H 154 H 204 H (75-99) mg/dL Calcium (8.4-10.2) mg/dL 03/28/17 Range/Units 11:17 WBC (3.8-10.6) k/uL RBC (4.30-5.90) m/uL Hgb (13.0-17.5) gm/dL Hct (39.0-53.0) % RDW (11.5-15.5) % Neutrophils # (1.3-7.7) k/uL Chloride (98-107) mmol/L Carbon Dioxide (22-30) mmol/L BUN (9-20) mg/dL Creatinine (0.66-1.25) mg/dL Glucose (74-99) mg/dL POC Glucose (mg/dL) 223 H (75-99) mg/dL Calcium (8.4-10.2) mg/dL Microbiology - Last 24 Hours (Table) 03/23/17 08:00 Gram Stain - Final Peritoneal Fluid Body Fluid Culture - Final Assessment and Plan Plan: 1 acute abdomen status post extra laparotomy and repair of a perforated peptic ulcer a modified Don patch and open cholecystectomy. Patient is postop day # 11 2 shock secondary to septic in nature secondary to intra-abdominal sepsis complicated by perforated peptic ulcer and cholecystitis. Patient has been stabilized. The patient is currently off pressors. Antibiotic coverage as per infectious disease on the case. 3 hypotension secondary to above , recovered 4 acute respiratory failure, a complication of septic shock. Extubated without any major difficulties. 5 acute kidney injury on top of chronic renal failure. Patient has a nonoliguric acute kidney injury secondary to ischemic ATN secondary to hypotension and sepsis. The patient has stage II kidney disease at baseline due to diabetic nephropathy. 6 acute lactic acidosis, recovered 7 diabetes mellitus with poorly controlled blood sugar secondary to sepsis currently on insulin drip for blood sugar control. 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 17 MRSA in the sputum, likely a colonizer. 18 worsening postoperative anemia, multifactorial, patient will benefit from a unit of packed RBCs since his hemoglobin is down to 7.0 and the patient seems to be extremely weak and pale. Recommendation: Continue present supportive care measures, continue antibiotics , continue present dose of diuretics, monitor labs on a daily basis, patient will be kept in the ICU, not quite ready for transfer. Patient is back on insulin drip. hence we will continue to evaluate and monitor in the ICU closely. Aranesp was added, no need for dialysis at this point. 1 unit of packed RBCs will be given today. Prognosis remains poor and guarded. We'll continue to follow. Time with Patient: Less than 30
--- NOTE | 2017-03-28 12:03 | P.PN ---
Subjective Patient is seen in follow-up for acute renal failure and metabolic acidosis. Renal function is stable with creatinine at 3.5 today. Patient is maintained on TPN. He was extubated 03/22. Patient presented with a perforated peptic ulcer and underwent exploratory laparotomy and open cholecystectomy this admission. Maintained on Lasix 40 mg IV once daily. He is nonoliguric. Patient does have underlying chronic kidney disease with creatinine in the range of 2.4-2.5 in July 2016. Off pressors. States he feels well. Passed swallow eval - diet to be advanced today. Hemoglobin is down to 7.0 any scheduled to receive 1 unit of blood transfusion today. No active bleeding. Vital signs are stable. General: Now extubated. HEENT: Head exam is unremarkable. Neck is without jugular venous distension. LUNGS: Scattered rhonchi. Breath sounds decreased. HEART: Rate and Rhythm are regular. First and second heart sounds normal. No murmurs, rubs or gallops. ABDOMEN: Bowel sounds present. EXTREMITITES: Trace edema. Left BKA noted. Objective - Vital Signs Vital signs: Vital Signs Temp 98.6 F 03/28/17 11:00 Pulse 100 03/28/17 11:57 Resp 26 H 03/28/17 11:00 BP 128/63 03/28/17 11:00 Pulse Ox 95 03/28/17 11:00 Intake & Output 03/27/17 03/28/17 03/28/17 18:59 06:59 18:59 Intake Total 2152.538 1235.864 409.803 Output Total 2435 1215 680 Balance -282.462 20.864 -270.197 Weight 93.2 kg 92.2 kg 92.2 kg Intake: IV 180 170 150 0.9 at 20 ml/hr 80 D5W 130 170 20 Fluconazole in NaCl Iso- 50 50 Osm 100mg in Saline 1 50ml.bag @50mls/hr IVPB Daily Intake, IV Titration 2886.605 6795.864 19.803 Amount Insulin Regular 100 unit 21.538 In Sodium Chloride 0.9% 100 ml @ Per Protocol IV .Q0M [facility] Rx#:[id number] Insulin Regular 100 unit 35.864 19.803 In Sodium Chloride 0.9% 100 ml @ Per Protocol IV .Q0M [facility] Rx#:[id number] Mvi, Adult No.4 with Vit 1141 K 10 ml Trace (Conc-1Ml/ Dose) 1 ml Potassium Acetate 20 meq Parenteral Electrolytes 20 ml In Amino Acid 5%-D15w 1,000 ml @ 100 mls/hr IV .BY DURATION [facility] Rx#: [id number] Potassium Acetate 20 meq 500 1030 Parenteral Electrolytes 20 ml In Amino Acid 5%- D15w 1,000 ml @ 100 mls/ hr IV .BY DURATION [facility] Rx #:[id number] Vancomycin 1,500 mg In 250 Sodium Chloride 0.9% 250 ml @ 125 mls/hr IVPB ONCE ONE Rx#:[id number] Oral 60 240 Output: Drainage 90 210 Right Lower Abdomen 90 210 Urine 2345 1215 470 Stool 0 Other: Voiding Method Indwelling Catheter Indwelling Catheter Indwelling Catheter ABP, PAP, CO, CI - Last Documented Arterial Blood Pressure 146/54 - Labs CBC & Chem 7: 03/28/17 04:45 03/28/17 04:45 Labs: Abnormal Lab Results - Last 24 Hours (Table) 03/27/17 03/27/17 03/27/17 Range/Units 12:03 16:20 16:24 WBC (3.8-10.6) k/uL RBC (4.30-5.90) m/uL Hgb (13.0-17.5) gm/dL Hct (39.0-53.0) % RDW (11.5-15.5) % Neutrophils # (1.3-7.7) k/uL Chloride (98-107) mmol/L Carbon Dioxide (22-30) mmol/L BUN (9-20) mg/dL Creatinine (0.66-1.25) mg/dL Glucose (74-99) mg/dL POC Glucose (mg/dL) 133 H 262 H 260 H (75-99) mg/dL Calcium (8.4-10.2) mg/dL Crossmatch 03/27/17 03/28/17 03/28/17 Range/Units 20:04 00:01 01:05 WBC (3.8-10.6) k/uL RBC (4.30-5.90) m/uL Hgb (13.0-17.5) gm/dL Hct (39.0-53.0) % RDW (11.5-15.5) % Neutrophils # (1.3-7.7) k/uL Chloride (98-107) mmol/L Carbon Dioxide (22-30) mmol/L BUN (9-20) mg/dL Creatinine (0.66-1.25) mg/dL Glucose (74-99) mg/dL POC Glucose (mg/dL) 278 H 328 H 352 H (75-99) mg/dL Calcium (8.4-10.2) mg/dL Crossmatch 03/28/17 03/28/17 03/28/17 Range/Units 01:33 02:11 03:02 WBC (3.8-10.6) k/uL RBC (4.30-5.90) m/uL Hgb (13.0-17.5) gm/dL Hct (39.0-53.0) % RDW (11.5-15.5) % Neutrophils # (1.3-7.7) k/uL Chloride (98-107) mmol/L Carbon Dioxide (22-30) mmol/L BUN (9-20) mg/dL Creatinine (0.66-1.25) mg/dL Glucose (74-99) mg/dL POC Glucose (mg/dL) 277 H 243 H 198 H (75-99) mg/dL Calcium (8.4-10.2) mg/dL Crossmatch 03/28/17 03/28/17 03/28/17 Range/Units 04:05 04:45 04:45 WBC 13.7 H (3.8-10.6) k/uL RBC 2.43 L (4.30-5.90) m/uL Hgb 7.0 L* (13.0-17.5) gm/dL Hct 22.4 L (39.0-53.0) % RDW 15.7 H (11.5-15.5) % Neutrophils # 11.1 H (1.3-7.7) k/uL Chloride 111 H (98-107) mmol/L Carbon Dioxide 21 L (22-30) mmol/L BUN 108 H* (9-20) mg/dL Creatinine 3.50 H (0.66-1.25) mg/dL Glucose 151 H (74-99) mg/dL POC Glucose (mg/dL) 172 H (75-99) mg/dL Calcium 7.8 L (8.4-10.2) mg/dL Crossmatch 03/28/17 03/28/17 03/28/17 Range/Units 05:05 06:01 07:04 WBC (3.8-10.6) k/uL RBC (4.30-5.90) m/uL Hgb (13.0-17.5) gm/dL Hct (39.0-53.0) % RDW (11.5-15.5) % Neutrophils # (1.3-7.7) k/uL Chloride (98-107) mmol/L Carbon Dioxide (22-30) mmol/L BUN (9-20) mg/dL Creatinine (0.66-1.25) mg/dL Glucose (74-99) mg/dL POC Glucose (mg/dL) 142 H 118 H 107 H (75-99) mg/dL Calcium (8.4-10.2) mg/dL Crossmatch 03/28/17 03/28/17 03/28/17 Range/Units 07:48 09:22 10:16 WBC (3.8-10.6) k/uL RBC (4.30-5.90) m/uL Hgb (13.0-17.5) gm/dL Hct (39.0-53.0) % RDW (11.5-15.5) % Neutrophils # (1.3-7.7) k/uL Chloride (98-107) mmol/L Carbon Dioxide (22-30) mmol/L BUN (9-20) mg/dL Creatinine (0.66-1.25) mg/dL Glucose (74-99) mg/dL POC Glucose (mg/dL) 115 H 154 H 204 H (75-99) mg/dL Calcium (8.4-10.2) mg/dL Crossmatch 03/28/17 03/28/17 Range/Units 10:58 11:17 WBC (3.8-10.6) k/uL RBC (4.30-5.90) m/uL Hgb (13.0-17.5) gm/dL Hct (39.0-53.0) % RDW (11.5-15.5) % Neutrophils # (1.3-7.7) k/uL Chloride (98-107) mmol/L Carbon Dioxide (22-30) mmol/L BUN (9-20) mg/dL Creatinine (0.66-1.25) mg/dL Glucose (74-99) mg/dL POC Glucose (mg/dL) 223 H (75-99) mg/dL Calcium (8.4-10.2) mg/dL Crossmatch See Detail Microbiology - Last 24 Hours (Table) 03/23/17 08:00 Gram Stain - Final Peritoneal Fluid Body Fluid Culture - Final Assessment and Plan Plan: Assessment: #1. Nonoliguric acute kidney injury secondary to ischemic ATN secondary to hypotension and sepsis. Renal function stable. BUN elevated due to diuresis - not on steroids. Patient hasn't had a bowel movement therefore stool for occult blood hasn't been checked. Hemoglobin is down to 7.0 today. #2. Perforated peptic ulcer status post exploratory laparotomy and open cholecystectomy on March 16. Upper GI study benign from 03/26. #3. Metabolic acidosis with respiratory compensation secondary to acute kidney injury and IV fluids. Improving. #4. Hypotension secondary to sepsis. Off vasopressors. #5. Anemia of chronic kidney disease. Hemoglobin down to 7.0 today. #6. Sepsis secondary to perforated ulcer and gangrenous cholecystitis. Sputum culture positive for MRSA. #7. 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 Etiology is likely diabetic kidney disease. #8. Hypernatremia secondary to diuresis and lack of oral water intake. Improved. #9. Hypokalemia secondary to poor nutritional status and renal potassium wasting. Magnesium replete. Improved. Plan: Start oral sodium bicarbonate once able to tolerate oral medications. To attempt oral intake today. Antibiotics per infectious disease recommendations. Avoid nephrotoxic agents and hypotensive episodes. Monitor vancomycin levels. No urgent need for renal replacement therapy at this time. Maintain Aranesp. 60 mg IV Lasix once after blood transfusion.
[2017-03-28 12:23] LABS: Glucose,Whole Blood 224 mg/dL (75-99)
[2017-03-28] MEDS ORDERED: FUROSEMIDE 10 MG/ML 10 ML VIAL IV ONE (13:00)
[2017-03-28] MEDS ORDERED: FUROSEMIDE 10 MG/ML 4 ML VIAL IV ONE (13:00)
[2017-03-28 13:16] LABS: Glucose,Whole Blood 216 mg/dL (75-99)
[2017-03-28 14:02] LABS: Glucose,Whole Blood 223 mg/dL (75-99)
[2017-03-28] MEDS: FAT EMULSION 20% 250 ML in EMPTY BAG 1 BAG IV SCH (14:39)
[2017-03-28 15:30] LABS: Glucose,Whole Blood 151 mg/dL (75-99)
--- NOTE | 2017-03-28 16:06 | P.PN ---
Subjective Principal diagnosis: Perforated peptic ulcer Patient says he feels more energetic today. He still seems weak however. He did do better with a swallow evaluation is started on a nectar thickened liquids. Denies abdominal pain. LOUISA drain has had intermittently elevated outputs today was 80 mL in and 8 hour shift. Remained serous in color. White blood cell count down to 13.7. Hemoglobin 7.0 and he is receiving 1 unit of blood. Objective - Vital Signs Vital signs: Vital Signs Temp 98.5 F 03/28/17 15:02 Pulse 114 H 03/28/17 15:54 Resp 23 03/28/17 15:02 BP 131/54 03/28/17 15:02 Pulse Ox 97 03/28/17 15:02 Intake & Output 03/27/17 03/28/17 03/28/17 18:59 06:59 18:59 Intake Total 2152.538 7442.356 1207.686 Output Total 2435 1215 1060 Balance -282.462 20.864 313.686 Weight 93.2 kg 92.2 kg 92.2 kg Intake: IV 180 170 530 0.9 at 20 ml/hr 160 D5W 130 170 20 Fluconazole in NaCl Iso- 50 50 Osm 100mg in Saline 1 50ml.bag @50mls/hr IVPB Daily PRBC at 150 ml/hr 300 Intake, IV Titration 0849.668 1850.864 53.686 Amount Insulin Regular 100 unit 21.538 In Sodium Chloride 0.9% 100 ml @ Per Protocol IV .Q0M [facility] Rx#:[id number] Insulin Regular 100 unit 35.864 53.686 In Sodium Chloride 0.9% 100 ml @ Per Protocol IV .Q0M [facility] Rx#:[id number] Mvi, Adult No.4 with Vit 1141 K 10 ml Trace (Conc-1Ml/ Dose) 1 ml Potassium Acetate 20 meq Parenteral Electrolytes 20 ml In Amino Acid 5%-D15w 1,000 ml @ 100 mls/hr IV .BY DURATION [facility] Rx#: [id number] Potassium Acetate 20 meq 500 1030 Parenteral Electrolytes 20 ml In Amino Acid 5%- D15w 1,000 ml @ 100 mls/ hr IV .BY DURATION [facility] Rx #:[id number] Vancomycin 1,500 mg In 250 Sodium Chloride 0.9% 250 ml @ 125 mls/hr IVPB ONCE ONE Rx#:[id number] Oral 60 480 Blood Product 310 Rc As-1 Unit 310 [id number] Output: Drainage 90 240 Right Lower Abdomen 90 240 Urine 2345 1215 820 Stool 0 Other: Voiding Method Indwelling Catheter Indwelling Catheter Indwelling Catheter ABP, PAP, CO, CI - Last Documented Arterial Blood Pressure 146/54 - Exam Abdomen: Soft, edematous, nontender, incision with small wounds clean - Labs CBC & Chem 7: 03/28/17 04:45 03/28/17 04:45 Labs: Abnormal Lab Results - Last 24 Hours (Table) 03/27/17 03/27/17 03/27/17 Range/Units 16:20 16:24 20:04 WBC (3.8-10.6) k/uL RBC (4.30-5.90) m/uL Hgb (13.0-17.5) gm/dL Hct (39.0-53.0) % RDW (11.5-15.5) % Neutrophils # (1.3-7.7) k/uL Chloride (98-107) mmol/L Carbon Dioxide (22-30) mmol/L BUN (9-20) mg/dL Creatinine (0.66-1.25) mg/dL Glucose (74-99) mg/dL POC Glucose (mg/dL) 262 H 260 H 278 H (75-99) mg/dL Calcium (8.4-10.2) mg/dL Crossmatch 03/28/17 03/28/17 03/28/17 Range/Units 00:01 01:05 01:33 WBC (3.8-10.6) k/uL RBC (4.30-5.90) m/uL Hgb (13.0-17.5) gm/dL Hct (39.0-53.0) % RDW (11.5-15.5) % Neutrophils # (1.3-7.7) k/uL Chloride (98-107) mmol/L Carbon Dioxide (22-30) mmol/L BUN (9-20) mg/dL Creatinine (0.66-1.25) mg/dL Glucose (74-99) mg/dL POC Glucose (mg/dL) 328 H 352 H 277 H (75-99) mg/dL Calcium (8.4-10.2) mg/dL Crossmatch 03/28/17 03/28/17 03/28/17 Range/Units 02:11 03:02 04:05 WBC (3.8-10.6) k/uL RBC (4.30-5.90) m/uL Hgb (13.0-17.5) gm/dL Hct (39.0-53.0) % RDW (11.5-15.5) % Neutrophils # (1.3-7.7) k/uL Chloride (98-107) mmol/L Carbon Dioxide (22-30) mmol/L BUN (9-20) mg/dL Creatinine (0.66-1.25) mg/dL Glucose (74-99) mg/dL POC Glucose (mg/dL) 243 H 198 H 172 H (75-99) mg/dL Calcium (8.4-10.2) mg/dL Crossmatch 03/28/17 03/28/17 03/28/17 Range/Units 04:45 04:45 05:05 WBC 13.7 H (3.8-10.6) k/uL RBC 2.43 L (4.30-5.90) m/uL Hgb 7.0 L* (13.0-17.5) gm/dL Hct 22.4 L (39.0-53.0) % RDW 15.7 H (11.5-15.5) % Neutrophils # 11.1 H (1.3-7.7) k/uL Chloride 111 H (98-107) mmol/L Carbon Dioxide 21 L (22-30) mmol/L BUN 108 H* (9-20) mg/dL Creatinine 3.50 H (0.66-1.25) mg/dL Glucose 151 H (74-99) mg/dL POC Glucose (mg/dL) 142 H (75-99) mg/dL Calcium 7.8 L (8.4-10.2) mg/dL Crossmatch 03/28/17 03/28/17 03/28/17 Range/Units 06:01 07:04 07:48 WBC (3.8-10.6) k/uL RBC (4.30-5.90) m/uL Hgb (13.0-17.5) gm/dL Hct (39.0-53.0) % RDW (11.5-15.5) % Neutrophils # (1.3-7.7) k/uL Chloride (98-107) mmol/L Carbon Dioxide (22-30) mmol/L BUN (9-20) mg/dL Creatinine (0.66-1.25) mg/dL Glucose (74-99) mg/dL POC Glucose (mg/dL) 118 H 107 H 115 H (75-99) mg/dL Calcium (8.4-10.2) mg/dL Crossmatch 03/28/17 03/28/17 03/28/17 Range/Units 09:22 10:16 10:58 WBC (3.8-10.6) k/uL RBC (4.30-5.90) m/uL Hgb (13.0-17.5) gm/dL Hct (39.0-53.0) % RDW (11.5-15.5) % Neutrophils # (1.3-7.7) k/uL Chloride (98-107) mmol/L Carbon Dioxide (22-30) mmol/L BUN (9-20) mg/dL Creatinine (0.66-1.25) mg/dL Glucose (74-99) mg/dL POC Glucose (mg/dL) 154 H 204 H (75-99) mg/dL Calcium (8.4-10.2) mg/dL Crossmatch See Detail 03/28/17 03/28/17 03/28/17 Range/Units 11:17 12:20 13:14 WBC (3.8-10.6) k/uL RBC (4.30-5.90) m/uL Hgb (13.0-17.5) gm/dL Hct (39.0-53.0) % RDW (11.5-15.5) % Neutrophils # (1.3-7.7) k/uL Chloride (98-107) mmol/L Carbon Dioxide (22-30) mmol/L BUN (9-20) mg/dL Creatinine (0.66-1.25) mg/dL Glucose (74-99) mg/dL POC Glucose (mg/dL) 223 H 224 H 216 H (75-99) mg/dL Calcium (8.4-10.2) mg/dL Crossmatch 03/28/17 03/28/17 Range/Units 14:00 15:29 WBC (3.8-10.6) k/uL RBC (4.30-5.90) m/uL Hgb (13.0-17.5) gm/dL Hct (39.0-53.0) % RDW (11.5-15.5) % Neutrophils # (1.3-7.7) k/uL Chloride (98-107) mmol/L Carbon Dioxide (22-30) mmol/L BUN (9-20) mg/dL Creatinine (0.66-1.25) mg/dL Glucose (74-99) mg/dL POC Glucose (mg/dL) 223 H 151 H (75-99) mg/dL Calcium (8.4-10.2) mg/dL Crossmatch Assessment and Plan (1) Free intraperitoneal air Narrative/Plan: Continue full liquid diet. Increase activity levels. Recheck lab work tomorrow. Status: Acute
[2017-03-28 16:15] LABS: Glucose,Whole Blood 134 mg/dL (75-99)
[2017-03-28 17:23] LABS: Glucose,Whole Blood 126 mg/dL (75-99)
[2017-03-28 18:40] LABS: Glucose,Whole Blood 195 mg/dL (75-99)
[2017-03-28 20:05] LABS: Glucose,Whole Blood 187 mg/dL (75-99)
[2017-03-28 21:08] LABS: Glucose,Whole Blood 220 mg/dL (75-99)
[2017-03-28 22:10] LABS: Glucose,Whole Blood 167 mg/dL (75-99)
[2017-03-28 23:07] LABS: Glucose,Whole Blood 106 mg/dL (75-99)
[2017-03-29] LABS: Glucose,Whole Blood 86 mg/dL (75-99)
[2017-03-29 00:49] LABS: Glucose,Whole Blood 100 mg/dL (75-99)
[2017-03-29 01:56] LABS: Glucose,Whole Blood 143 mg/dL (75-99)
[2017-03-29 03:01] LABS: Glucose,Whole Blood 162 mg/dL (75-99)
[2017-03-29 04:05] LABS: Glucose,Whole Blood 162 mg/dL (75-99)
[2017-03-29 04:53] LABS: Basophils # (A) 0.1 k/uL (0-0.2); Basophils % (A) 1 %; CH 29.3; CHCM 31.1; Eosinophils # (A) 0.2 k/uL (0-0.7); Eosinophils % (A) 1 %; HCT 24.4 % (39.0-53.0); HDW 3.22; HGB 7.5 gm/dL (13.0-17.5); Hypochromasia Slight; Luc # (Auto) 0.38; Luc % (Auto) 3; Lymphocytes # (A) 1.4 k/uL (1.0-4.8); Lymphocytes % (A) 10 %; MCH 29.3 pg (25.0-35.0); MCHC 30.9 g/dL (31.0-37.0); MCV 94.9 fL (80.0-100.0); Mean Platelet Volume 9.1; Monocytes # (A) 0.9 k/uL (0-1.0); Monocytes % (A) 6 %; Neutrophils # (A) 11.6 k/uL (1.3-7.7); Neutrophils % (A) 80 %; RBC 2.57 m/uL (4.30-5.90); WBC 14.5 k/uL (3.8-10.6); WBC (Perox) 14.67
[2017-03-29 04:55] LABS: Glucose,Whole Blood 109 mg/dL (75-99)
[2017-03-29 05:40] LABS: Basophils # (A) 0.1 k/uL (0-0.2); Basophils % (A) 1 %; CH 28.7; CHCM 31.9; Eosinophils # (A) 0.2 k/uL (0-0.7); Eosinophils % (A) 1 %; HDW 3.24; HGB 8.2 gm/dL (13.0-17.5); Hypochromasia Slight; Luc # (Auto) 0.61; Luc % (Auto) 4; Lymphocytes # (A) 1.5 k/uL (1.0-4.8); Lymphocytes % (A) 9 %; MCH 28.7 pg (25.0-35.0); MCHC 31.7 g/dL (31.0-37.0); MCV 90.7 fL (80.0-100.0); Mean Platelet Volume 8.7; Monocytes # (A) 0.9 k/uL (0-1.0); Monocytes % (A) 6 %; Neutrophils # (A) 12.9 k/uL (1.3-7.7); Neutrophils % (A) 79 %; RBC 2.87 m/uL (4.30-5.90); RDW 15.5 % (11.5-15.5); WBC 16.3 k/uL (3.8-10.6); WBC (Perox) 17.06
[2017-03-29 05:50] LABS: Calcium 7.9 mg/dL (8.4-10.2); Magnesium 2.3 mg/dL (1.6-2.3); Phosphorous 3.5 mg/dL (2.5-4.5); Potassium 4.8 mmol/L (3.5-5.1)
[2017-03-29 06:05] LABS: Glucose,Whole Blood 103 mg/dL (75-99)
[2017-03-29 06:52] LABS: Glucose,Whole Blood 123 mg/dL (75-99)
--- NOTE | 2017-03-29 07:16 | XR ---
EXAMINATION TYPE: XR chest 1V portable DATE OF EXAM: 03/29/2017 COMPARISON: 03/28/2017 HISTORY: Short of breath TECHNIQUE: Single frontal view of the chest is obtained. FINDINGS: There is pulmonary edema. There are chest leads. There is right subclavian catheter with t he tip in the right atrium. There is no pneumothorax. IMPRESSION: Pulmonary edema probably due to congestive heart failure. This appears the same or sligh tly worse than yesterday.
[2017-03-29] MEDS: IPRATROPIUM-ALBUTEROL 3 ML NEB INHALATION SCH ×4 (07:55→19:34)
[2017-03-29] MEDS: HEPARIN SODIUM,PORCINE 5,000 UNIT/ML 1 ML VIAL SQ SCH ×2 (08:06→17:21)
[2017-03-29 08:09] LABS: Glucose,Whole Blood 137 mg/dL (75-99)
--- NOTE | 2017-03-29 08:24 | P.PN ---
Subjective Principal diagnosis: This is a 66-year-old seen with acute kidney injury secondary to sepsis. He presented with a perforated peptic ulcer and underwent exploratory laparotomy open cholecystectomy. His creatinine continues to improve as of this morning is 3.58 with the lowest being 3.5 for the last 2 days. His peak was 5.9 on 03/16/2017 Currently he is on room air is being given TPN as well as cc starting to have full liquids and has no abdominal pain. Seems to have some amount of diarrhea although not documented well. He has a rectal tube and has a Castellanos catheter as well. He is not on any inotropes. His chest x-ray though shows some possible worsening on the right side. 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 He is known with diabetes, peripheral vascular disease, diabetic neuropathy and retinopathy and nephropathy with chronic kidney disease stage III, with a creatinine of 2.4 Objective - Vital Signs Vital signs: Vital Signs Temp 100.0 F H 03/29/17 04:00 Pulse 107 H 03/29/17 07:58 Resp 23 03/29/17 07:00 BP 139/78 03/29/17 07:00 Pulse Ox 98 03/29/17 07:58 Intake & Output 03/28/17 03/29/17 03/29/17 18:59 06:59 18:59 Intake Total 2482.110 254.067 29.332 Output Total 1950 2240 125 Balance 532.110 -1985.933 -95.668 Weight 92.2 kg 91.1 kg Intake: IV 590 190.0 20 0.9 at 20 ml/hr 220 140 20 D5W 20 Fluconazole in NaCl Iso- 50 Osm 100mg in Saline 1 50ml.bag @50mls/hr IVPB Daily PRBC at 150 ml/hr 300 Piperacillin-Tazobactam 3 0 .375 gm In Dextrose/Water 1 50ml.bag @ 12.5 mls/hr IVPB Q12HR [facility] Rx#: [id number] Piperacillin-Tazobactam 3 50.0 .375 gm In Dextrose/Water 1 50ml.bag @ 12.5 mls/hr IVPB Q8HR [facility] Rx#: [id number] Potassium Acetate 20 meq 0 Parenteral Electrolytes 20 ml In Amino Acid 5%- D15w 1,000 ml @ 100 mls/ hr IV .BY DURATION [facility] Rx #:[id number] Intake, IV Titration 1102.110 64.067 9.332 Amount Insulin Regular 100 unit 61.110 64.067 9.332 In Sodium Chloride 0.9% 100 ml @ Per Protocol IV .Q0M [facility] Rx#:[id number] Mvi, Adult No.4 with Vit 1041 K 10 ml Trace (Conc-1Ml/ Dose) 1 ml Potassium Acetate 20 meq Parenteral Electrolytes 20 ml In Amino Acid 5%-D15w 1,000 ml @ 100 mls/hr IV .BY DURATION [facility] Rx#: [id number] Oral 480 Blood Product 310 Rc As-1 Unit 310 [id number] Output: Drainage 280 40 Right Lower Abdomen 280 40 Urine 1670 2200 125 Stool 0 Other: Voiding Method Indwelling Catheter Indwelling Catheter # Bowel Movements 1 ABP, PAP, CO, CI - Last Documented Arterial Blood Pressure 146/54 On examination is awake alert oriented he is on room air and saturating 96% Is in normal sinus rhythm HEENT exam difficult to see his neck no obvious JVP noted. Neck is supple no facial asymmetry Lungs are clear to auscultation with good air entry bilaterally although the chest x-ray shows worsening infiltrate on the right lower zones. Heart sounds are unremarkable for any murmur rub gallop on the monitor is showing normal sinus rhythm with some occasional PVCs Abdomen is soft nontender slightly distended absent bowel sounds but is moving his bowels. Extremity exam was trace edema of the right BKA and the left has all but one toes amputated remotely. Logically sensibly awake alert oriented comfortable and cooperative - Labs CBC & Chem 7: 03/29/17 05:27 03/29/17 05:27 Labs: Abnormal Lab Results - Last 24 Hours (Table) 03/28/17 03/28/17 03/28/17 Range/Units 09:22 10:16 10:58 WBC (3.8-10.6) k/uL RBC (4.30-5.90) m/uL Hgb (13.0-17.5) gm/dL Hct (39.0-53.0) % MCHC (31.0-37.0) g/dL RDW (11.5-15.5) % Plt Count (150-450) k/uL Neutrophils # (1.3-7.7) k/uL Chloride (98-107) mmol/L Carbon Dioxide (22-30) mmol/L BUN (9-20) mg/dL Creatinine (0.66-1.25) mg/dL POC Glucose (mg/dL) 154 H 204 H (75-99) mg/dL Calcium (8.4-10.2) mg/dL Crossmatch See Detail 03/28/17 03/28/17 03/28/17 Range/Units 11:17 12:20 13:14 WBC (3.8-10.6) k/uL RBC (4.30-5.90) m/uL Hgb (13.0-17.5) gm/dL Hct (39.0-53.0) % MCHC (31.0-37.0) g/dL RDW (11.5-15.5) % Plt Count (150-450) k/uL Neutrophils # (1.3-7.7) k/uL Chloride (98-107) mmol/L Carbon Dioxide (22-30) mmol/L BUN (9-20) mg/dL Creatinine (0.66-1.25) mg/dL POC Glucose (mg/dL) 223 H 224 H 216 H (75-99) mg/dL Calcium (8.4-10.2) mg/dL Crossmatch 03/28/17 03/28/17 03/28/17 Range/Units 14:00 15:29 16:13 WBC (3.8-10.6) k/uL RBC (4.30-5.90) m/uL Hgb (13.0-17.5) gm/dL Hct (39.0-53.0) % MCHC (31.0-37.0) g/dL RDW (11.5-15.5) % Plt Count (150-450) k/uL Neutrophils # (1.3-7.7) k/uL Chloride (98-107) mmol/L Carbon Dioxide (22-30) mmol/L BUN (9-20) mg/dL Creatinine (0.66-1.25) mg/dL POC Glucose (mg/dL) 223 H 151 H 134 H (75-99) mg/dL Calcium (8.4-10.2) mg/dL Crossmatch 03/28/17 03/28/17 03/28/17 Range/Units 17:21 18:39 20:04 WBC (3.8-10.6) k/uL RBC (4.30-5.90) m/uL Hgb (13.0-17.5) gm/dL Hct (39.0-53.0) % MCHC (31.0-37.0) g/dL RDW (11.5-15.5) % Plt Count (150-450) k/uL Neutrophils # (1.3-7.7) k/uL Chloride (98-107) mmol/L Carbon Dioxide (22-30) mmol/L BUN (9-20) mg/dL Creatinine (0.66-1.25) mg/dL POC Glucose (mg/dL) 126 H 195 H 187 H (75-99) mg/dL Calcium (8.4-10.2) mg/dL Crossmatch 03/28/17 03/28/17 03/28/17 Range/Units 21:06 22:07 23:05 WBC (3.8-10.6) k/uL RBC (4.30-5.90) m/uL Hgb (13.0-17.5) gm/dL Hct (39.0-53.0) % MCHC (31.0-37.0) g/dL RDW (11.5-15.5) % Plt Count (150-450) k/uL Neutrophils # (1.3-7.7) k/uL Chloride (98-107) mmol/L Carbon Dioxide (22-30) mmol/L BUN (9-20) mg/dL Creatinine (0.66-1.25) mg/dL POC Glucose (mg/dL) 220 H 167 H 106 H (75-99) mg/dL Calcium (8.4-10.2) mg/dL Crossmatch 03/29/17 03/29/17 03/29/17 Range/Units 00:47 01:55 02:59 WBC (3.8-10.6) k/uL RBC (4.30-5.90) m/uL Hgb (13.0-17.5) gm/dL Hct (39.0-53.0) % MCHC (31.0-37.0) g/dL RDW (11.5-15.5) % Plt Count (150-450) k/uL Neutrophils # (1.3-7.7) k/uL Chloride (98-107) mmol/L Carbon Dioxide (22-30) mmol/L BUN (9-20) mg/dL Creatinine (0.66-1.25) mg/dL POC Glucose (mg/dL) 100 H 143 H 162 H (75-99) mg/dL Calcium (8.4-10.2) mg/dL Crossmatch 03/29/17 03/29/17 03/29/17 Range/Units 04:02 04:25 04:52 WBC 14.5 H (3.8-10.6) k/uL RBC 2.57 L (4.30-5.90) m/uL Hgb 7.5 L (13.0-17.5) gm/dL Hct 24.4 L (39.0-53.0) % MCHC 30.9 L (31.0-37.0) g/dL RDW 16.0 H (11.5-15.5) % Plt Count (150-450) k/uL Neutrophils # 11.6 H (1.3-7.7) k/uL Chloride (98-107) mmol/L Carbon Dioxide (22-30) mmol/L BUN (9-20) mg/dL Creatinine (0.66-1.25) mg/dL POC Glucose (mg/dL) 162 H 109 H (75-99) mg/dL Calcium (8.4-10.2) mg/dL Crossmatch 03/29/17 03/29/17 03/29/17 Range/Units 05:27 05:27 06:03 WBC 16.3 H (3.8-10.6) k/uL RBC 2.87 L (4.30-5.90) m/uL Hgb 8.2 L (13.0-17.5) gm/dL Hct 26.0 L (39.0-53.0) % MCHC (31.0-37.0) g/dL RDW (11.5-15.5) % Plt Count 456 H (150-450) k/uL Neutrophils # 12.9 H (1.3-7.7) k/uL Chloride 113 H (98-107) mmol/L Carbon Dioxide 19 L (22-30) mmol/L BUN 111 H* (9-20) mg/dL Creatinine 3.58 H (0.66-1.25) mg/dL POC Glucose (mg/dL) 103 H (75-99) mg/dL Calcium 7.9 L (8.4-10.2) mg/dL Crossmatch 03/29/17 03/29/17 Range/Units 06:50 08:08 WBC (3.8-10.6) k/uL RBC (4.30-5.90) m/uL Hgb (13.0-17.5) gm/dL Hct (39.0-53.0) % MCHC (31.0-37.0) g/dL RDW (11.5-15.5) % Plt Count (150-450) k/uL Neutrophils # (1.3-7.7) k/uL Chloride (98-107) mmol/L Carbon Dioxide (22-30) mmol/L BUN (9-20) mg/dL Creatinine (0.66-1.25) mg/dL POC Glucose (mg/dL) 123 H 137 H (75-99) mg/dL Calcium (8.4-10.2) mg/dL Crossmatch Assessment and Plan Plan: Impression 1. Acute kidney injury with ATN slowly improving creatinine currently stable at 3.5. 2. Status post perforated peptic ulcer and status post exploratory lap and cholecystectomy 03/16/2017 3. On TPN 4. Mild non-gap acidosis secondary to acute kidney injury and possibly from the TPN. Bicarb is 19 and anion gap is 12. This is stable. 5. Chronic kidney disease stage III B with diabetic nephropathy creatinine was 2. 07/14/2016. 6. Slight worsening chest x-ray finding on the right, possible pneumonia. Clinically very stable. Recommendation. 1. Reduce the TPN rate from 100 mL 2 50 mL an hour. He is on a 5% amino acid with D 15 W. 2. Increase oral feeding with ensure 1 can 3 times a day in addition to the other liquid diet he is receiving. 3. Agree with some mild diaphoresis, currently on IV Lasix 40 mg daily. We will watch his lung findings on the x-ray. 4. He can start him on sodium bicarbonate orally if bicarb remains low in the next 1 or 2 days
[2017-03-29] MEDS: PIPERACILLIN-TAZOBACTAM 3.375 GM in DEXTROSE/WATER 1 50ML.BAG IVPB SCH ×3 (08:44→23:50)
[2017-03-29] MEDS: PANTOPRAZOLE 40 MG/10 ML VIAL IV SCH ×2 (09:32→21:28)
[2017-03-29] MEDS: FLUCONAZOLE IN NACL,ISO-OSM 100 MG in SALINE 1 50ML.BAG IVPB SCH (09:33)
[2017-03-29] MEDS: FUROSEMIDE 10 MG/ML 4 ML VIAL IV SCH (09:33)
[2017-03-29 09:56] LABS: Glucose,Whole Blood 169 mg/dL (75-99)
[2017-03-29] MEDS: INSULIN REGULAR 100 UNIT in SODIUM CHLORIDE 0.9% 100 ML IV SCH (09:57)
--- NOTE | 2017-03-29 10:39 | P.PN ---
Progress Note - Text The patient is being seen on rounds for Dr. Heredia today. Had the repair of a perforated ulcer 2 weeks ago. Early stable. He is awake alert. Tolerating his full liquids. On examination he is afebrile. In no distress. Vitals are stable. Abdomen soft with mild tenderness. Incision looks fine. Intact. Fashion. Postoperative course. Recommendation. Continue on full liquid to soft diet the. Continued supportive care.
[2017-03-29 10:51] LABS: Glucose,Whole Blood 173 mg/dL (75-99)
[2017-03-29 11:38] LABS: Glucose,Whole Blood 159 mg/dL (75-99)
[2017-03-29 12:11] LABS: Glucose,Whole Blood 165 mg/dL (75-99)
[2017-03-29] MEDS: 1: MVI, ADULT NO.4 WITH VIT K 10 ML, TRACE (CONC-1ML/DOSE) 1 ML, POTASSIUM ACETATE 20 ME IV SCH ×10 (12:41→19:49)
--- NOTE | 2017-03-29 12:41 | P.PN ---
Subjective Principal diagnosis: Acute abdominal sepsis and perforation of peptic ulcer. A 66-year-old male patient who came into the intensive care unit after undergoing expiratory laparotomy and repair of a perforated peptic ulcer with a modified Don patch and open cholecystectomy. Surgery was done last night and the patient was brought into the intensive care unit intubated on a mechanical ventilator. According to the reported history the patient was having 3-4 days history of a vague abdominal pain. This being gradually got worse. The patient was also having constipation. He had some nausea without vomiting. Appetite was diminished. No bright red blood per rectum. The pain was mainly over the central abdomen. No history of any peptic ulcer disease or diverticular disease. The x-ray of the abdomen in the emergency department showed pneumoperitoneum and the CAT scan confirmed the presence of a large volume of free air. The gallbladder was also thickened. The majority of the air was in the upper abdomen. Intraoperatively, the patient was found to have a perforated peptic ulcer and a gangrenous gallbladder. The patient is currently in the intensive care unit. The patient has received a total of 7 L of IV fluids. He has chronic renal failure and had developed acute kidney injury on top of chronic renal insufficiency and currently is oliguric producing only 5-10 mL an hour of urine output. The patient is intubated on a mechanical ventilator. The patient on assist control mode at the rate of 10, tidal volume 450, FiO2 of 40% and a PEEP of 5. His blood. From this morning showed a pH of 7.31 with a pCO2 of 27 and pO2 of 198 and based on that the FiO2 was weaned down. Chest x-ray shows no pneumothorax or pneumoperitoneum. ET tube is in a good location. Hemodynamically, the patient was doing poorly. He was in septic shock. He was tachycardic with a heart rate in the 1:30 range. This improved with fluid resuscitation his current heart rate is sinus at 110. He also was on higher doses of pressors and norepinephrine infusion was running at 25 mics and currently is down to 50 mics. He is covered with a combination of IV Zosyn, IV Diflucan and IV Flagyl. He is afebrile for now. Is sedated with Diprivan. He has a below-knee amputation on the right lower extremity and the feet on the left lower extremity shows marked diminished pulses at is obtainable by Doppler. Lactic acid level was 5.4 at time of admission is currently down to 2.7. He has a right IJ triple-lumen catheter. He has a right upper extremity radial art line. He also has a LOUISA drain in his right lower quadrant area. On 03/18/2017 I'm seeing this patient in the follow-up. The patient remains intubated on a mechanical ventilator. He remains an assist-control mode of ventilation at a tidal volume 450, rate of 24, FiO2 of 40% and a PEEP of 5. His blood gases from this morning showed a pH of 7.26 with a pCO2 of 30 and pO2 of 155. Chest x-ray from this morning shows small bilateral pleural effusions, ET tube is in a good location, NG tube is in a good location and there is no acute pulmonary infiltrates or consolidations. Hemodynamically, the patient is still pressor dependent at 15 mics. Overnight he had to be as high as 20 mics and then he got weaned again down to 15 g of norepinephrine infusion. Urine output is gradually improving. Over the past 12 hours he produced approximately 50 mL of urine output. The patient is still having intermittent renal function and the creatinine still elevated at 4.8 which is comparable to yesterday. Rest of the electrodes are within normal. The patient is still acidotic with a bicarb level of 13. He received a total of 3 L of normal saline and 2 A of 12.5 g of albumin. He is still on a combination of Zosyn, Flagyl and Diflucan. All of the cultures of been negative. He remains nothing by mouth. Surgical wound site is clean and intact. LOUISA drain is draining approximately 50 mL of serosanguineous material. On 03/19/2017 the patient remains intubated on a mechanical ventilator. He is still respiratory failure. He is still in shock. He remains assist-control mode of ventilation with essentially the same vent settings. He is still requiring pressors and levo fed is running somewhere between 8-10 mics. He is afebrile. Echocardiogram was done at the bedside and showed a preserved LV function without any signs of heart failure. Remains sedated on Diprivan. A sedation holiday will be given to him today and try to lower down agree off sedation if possible. Remains on broad-spectrum antibiotics. Surgical wound site is dry clean and intact. Continues to be an acute kidney injury on top of chronic renal failure. No major improvement in the renal function although the patient has become nonoliguric at this point. He is producing adequate amount of urine output. His been aggressively resuscitated IV fluids and colloids and he is in a positive fluid balance and he has demonstrated some edema both in the upper and lower extremities. He remains acidotic. A follow-up lactic acid level will be obtained. Remains nothing by mouth. No clearance from surgery for enteral feeding. No TPN initiated yet. The patient is seen again today 03/20/2017 in follow-up in the intensive care unit. He remains intubated on the mechanical ventilator and assist control mode with a rate of 24, tidal volume 450, FiO2 40% and a PEEP of 5. Morning blood gases reveal a P O2 170, pCO2 of 26 and a pH of 7.20. This was done on 40 % FiO2. He is currently off sedation. He is fluttering his eyelids open but not following any commands at this point. He remains on norepinephrine currently at 3 mcg/m. He is also on a 0.9 normal saline at 40 miles per hour. His chest x-ray does show overall stable findings, there is low lung volumes with small bilateral pleural effusions and basilar atelectasis. His sputum culture reveals methicillin-resistant Staphylococcus aureus. Blood culture reveals no growth to date. He remains on vancomycin and metronidazole. He did have 150 MLS returned from the gastric tube which remains to suction. He does remain acidotic with a bicarb of 9. Chloride is 123. Current BUN 83, creatinine 4.41. The patient is seen again today 03/21/2017 in follow-up in the intensive care unit. He remains intubated on mechanical ventilator at a rate of 24, tidal volume 450, FiO2 40% and a PEEP of 5. Morning blood gases reveal a pH of 7.30, pCO2 of 26, pO2 of 163. The patient does remain off sedation and does open his eyes and follows simple commands. He is quite weak. He is currently off pressors. His white count is improving currently 14.1. Hemoglobin stable at 8.5. Sodium 147, chloride 124, bicarb improved to 11. Creatinine remains high at 4.70. He had been initiated on a bicarbonate drip yesterday to improve his acidosis.. On 03/22/2017 the patient is being seen in follow-up. The patient was taken off sedation this morning and he was quite awake. Bit lethargic yet arousable. He was moving extremities and responding to simple commands. He was off pressors. Renal function remains impaired however the patient was producing adequate amount of urine output. An ongoing issue was his underlying metabolic acidosis. He was placed on a bicarb drip briefly however based on the absence of significant bicarbonate stock in the hospital day infusion was stopped. He is still on TPN for nutritional support. He is receiving acetate through the TPN. Currently is on a mechanical ventilator. His assist-control at the rate of 24, tidal volume 450, FiO2 of 40% and a PEEP of 5. Chest x-rays showing small bilateral pleural effusion and ET tube is in good location. The blood gases from earlier this morning showed a pH of 7.32 with a pCO2 of 24 and pO2 155. Based on this, check his weaning parameters and he had a rapid shallow breathing index of less than 50. I give the patient a spontaneous breathing trial for a total of 45 minutes and subsequent blood gases showed a pH of 7.35 with a pCO2 of 25 and pO2 of 165. I give the patient 2 A of bicarb for a bicarb level of 14. Subsequently I extubated the patient. Postextubation, he held himself well. No tachypnea. No respiratory distress. NG tube still in place. The patient's BUN is at 97 creatinine is at 4.5. He was given Lasix IV. He is in significant fluid overload including edema in the lower extremities in the scrotum. Antibiotic coverage includes a combination of Zosyn , daptomycin and Diflucan. Sputum at shown MRSA. 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 Upon subsequent follow-up, daptomycin was discontinued and the patient was switched to vancomycin. On 03/23/2017 the patient is being seen in follow-up. The patient was successfully extubated yesterday and currently is on oxygen at room air. Pulse ox is above 90%. He has an MRSA in the sputum which is probably a colonizer. He is still on broad-spectrum antibiotics. The surgical wound site is clean. Bowel sounds are absent. He remains on TPN for nutritional support. He is bicarb level is gradually improving it's up to 16. He still has extensive edema both in upper and lower extremities and he also edema in his scrotum. I started him on Lasix 40 mg every 12 hours and he is producing approximately 3 L of urine output. Nevertheless, that fluid balance remains positive. He is on a combination of vancomycin, Zosyn and Diflucan for now. He is on TPN for nutritional support. He is on insulin drip at 8 units an hour. He is having some purulent drainage from the LOUISA drain and this was noted this morning. The material will be sent for culture. Afebrile. Surgeries on the case. Awake yet lethargic. Comfortable. On 03/24/2017, patient remains off mechanical ventilation, he was eventually extubated 2 days ago, and he is on room air. Remains on broad-spectrum antibiotics, surgical wound seems to be relatively clean, bowel sounds remain absent, patient is presently on TPN for nutritional support. Continues to have extensive edema in upper or lower extremities and lower extremities and in the scrotal area. Remains on diuretics with good and excellent urine output. Patient is on vancomycin and Zosyn and Diflucan. He is also on insulin drip. WBC count is 15.0 hemoglobin is 8.5. BUN is 105 creatinine is down to 3.71 and bicarb is 19. On 03/25/2017, patient seems to be doing better, he seems to be dehydrated,/ intravascularly depleted, but significant amount of swelling noted in his lower extremities and in the scrotal area. Lips are extremely dry. Renal functioning continues to improve, but still significantly abnormal, hence I will go ahead and cut down on diuretics today. Patient seems to be appropriate , in no distress, hemodynamically stable, afebrile. Patient is on room air with O2 sat of 97%, and his blood pressure is 105/51. BUN is 115 creatinine is down to 3.50. Hemoglobin is 8.3 with WBC count of 15.8. Latex are normal. On 03/26/2017, patient is basically about the same. Denies any specific complaints, but he seems weak, frail, and pale. He also seems dehydrated with very dry mucous membranes noted. Patient remains nonoliguric with acute on chronic kidney disease creatinine is 3.5 today. Patient was seen by nephrology today, and he will be started on oral sodium bicarb, upper GI scheduled to be done today, patient is also receiving potassium acetate, and no emergent need for renal replacement at this time. Aranesp was added. CBC showed a hemoglobin of 8.1 WBC count is 18.0. Basic metabolic profile was reviewed, BUN is 114 creatinine is 3.60 today. Slightly worse compared to yesterday when it was 3.5 yesterday. Reevaluated on 03/27/2017, patient is overall about the same, seems to be slightly more awake and more responsive today compared to the last few days. But overall he remains weak frail and pale. Continues to have good urine output , labs were reviewed hemoglobin is 7.3 today, WBC count is 15.5. Electrolytes and renal profile were noted, BUN is 113 creatinine is 3.50 holding the same as the last couple of days. All labs were reviewed, chest x-ray was also reviewed , and it showed improved small pleural effusion and some bibasilar atelectasis. Reevaluated today on 03/28/2017, patient is slightly more awake compared to yesterday, continues to remain generally weak, looks fatigued, pale looking, hemoglobin is down to 7.0, hence I believe considering his overall clinical status the patient will likely benefit from a unit of packed RBCs which will be given today. Urine output seems to be adequate, he has been in a negative balance over the last 24 hours. Swelling seems to be improving especially in the lower extremities and in the scrotal area. But not resolved. Chest x-ray is showing more atelectasis at the bases, no clear-cut evidence of pneumonia. Patient remains on antibiotics for his abdominal sepsis. All labs were reviewed hemoglobin is 7.0 BUN is 108 creatinine 3.50 holding. Blood sugar remains a bit elevated, patient is back on insulin drip as of last night. Patient was reevaluated today on 03/29/2017, remains very frail looking and weak also looking pale. Did receive a unit of packed RBCs yesterday, hemoglobin today is 8.2. Chest x-ray however is showing some deterioration in the right base, I still believe it is mostly atelectasis, however the patient is an excellent set up for possible pneumonia and/or acute lung injury. He is doing very poorly with incentive spirometry, he is still on bronchodilators, and remains on antibiotics as per infectious disease on the case. Remains on TPN, renal profile is basically the same creatinine is 3.58 BUN is 111. Closely monitored by nephrology. Objective - Vital Signs Vital signs: Vital Signs Temp 98.5 F 03/29/17 12:00 Pulse 108 H 03/29/17 12:00 Resp 31 H 03/29/17 12:00 BP 122/66 03/29/17 11:00 Pulse Ox 94 L 03/29/17 12:00 Intake & Output 03/28/17 03/29/17 03/29/17 18:59 06:59 18:59 Intake Total 2482.110 254.067 599.332 Output Total 1950 2240 1350 Balance 532.110 -1985.933 -750.668 Weight 92.2 kg 91.1 kg 92.8 kg Intake: IV 590 190.0 150 0.9 at 20 ml/hr 220 140 100 D5W 20 Fluconazole in NaCl Iso- 50 50 Osm 100mg in Saline 1 50ml.bag @50mls/hr IVPB Daily PRBC at 150 ml/hr 300 Piperacillin-Tazobactam 3 0 .375 gm In Dextrose/Water 1 50ml.bag @ 12.5 mls/hr IVPB Q12HR [facility] Rx#: [id number] Piperacillin-Tazobactam 3 50.0 .375 gm In Dextrose/Water 1 50ml.bag @ 12.5 mls/hr IVPB Q8HR [facility] Rx#: [id number] Potassium Acetate 20 meq 0 Parenteral Electrolytes 20 ml In Amino Acid 5%- D15w 1,000 ml @ 100 mls/ hr IV .BY DURATION [facility] Rx #:[id number] Intake, IV Titration 1102.110 64.067 9.332 Amount Insulin Regular 100 unit 61.110 64.067 9.332 In Sodium Chloride 0.9% 100 ml @ Per Protocol IV .Q0M [facility] Rx#:[id number] Mvi, Adult No.4 with Vit 1041 K 10 ml Trace (Conc-1Ml/ Dose) 1 ml Potassium Acetate 20 meq Parenteral Electrolytes 20 ml In Amino Acid 5%-D15w 1,000 ml @ 100 mls/hr IV .BY DURATION [facility] Rx#: [id number] Oral 480 440 Blood Product 310 Rc As-1 Unit 310 [id number] Output: Drainage 280 40 60 Right Lower Abdomen 280 40 60 Urine 1670 2200 1290 Stool 0 0 Other: Voiding Method Indwelling Catheter Indwelling Catheter Indwelling Catheter # Bowel Movements 1 1 ABP, PAP, CO, CI - Last Documented Arterial Blood Pressure 146/54 - Exam Physical Exam: Revealed a 66-year-old white male, pale looking, weak, in no distress. HEENT:[Neck is supple.] [No neck masses.] [No thyromegaly.] [No JVD.] Mucous membranes seem to be extremely dry. Chest: [Diminished breath sounds at the bases no crackles or rhonchi or wheezes. ] Cardiac Exam: [Normal S1 and S2, no S3 gallop, no murmur.] Abdomen: [Postsurgical, Soft, likely tender to palpation,, no megaly, no rebound, no guarding, managed bowel sounds. Surgical incision seems to be clean , drains were noted. Cultures from the LOUISA drain is negative so far. Extremities: [2 + bipedal edema, no clubbing, no cyanosis.] Right Below amputation was noted.] Evidence of amputated toes in the left foot except the left big toe. Neurological Exam: Generally weak and frail, but no focal neurologic deficit is noted. - Labs CBC & Chem 7: 03/29/17 05:27 03/29/17 05:27 Labs: Abnormal Lab Results - Last 24 Hours (Table) 03/28/17 03/28/17 03/28/17 Range/Units 10:58 13:14 14:00 WBC (3.8-10.6) k/uL RBC (4.30-5.90) m/uL Hgb (13.0-17.5) gm/dL Hct (39.0-53.0) % MCHC (31.0-37.0) g/dL RDW (11.5-15.5) % Plt Count (150-450) k/uL Neutrophils # (1.3-7.7) k/uL Chloride (98-107) mmol/L Carbon Dioxide (22-30) mmol/L BUN (9-20) mg/dL Creatinine (0.66-1.25) mg/dL POC Glucose (mg/dL) 216 H 223 H (75-99) mg/dL Calcium (8.4-10.2) mg/dL Crossmatch See Detail 03/28/17 03/28/17 03/28/17 Range/Units 15:29 16:13 17:21 WBC (3.8-10.6) k/uL RBC (4.30-5.90) m/uL Hgb (13.0-17.5) gm/dL Hct (39.0-53.0) % MCHC (31.0-37.0) g/dL RDW (11.5-15.5) % Plt Count (150-450) k/uL Neutrophils # (1.3-7.7) k/uL Chloride (98-107) mmol/L Carbon Dioxide (22-30) mmol/L BUN (9-20) mg/dL Creatinine (0.66-1.25) mg/dL POC Glucose (mg/dL) 151 H 134 H 126 H (75-99) mg/dL Calcium (8.4-10.2) mg/dL Crossmatch 03/28/17 03/28/17 03/28/17 Range/Units 18:39 20:04 21:06 WBC (3.8-10.6) k/uL RBC (4.30-5.90) m/uL Hgb (13.0-17.5) gm/dL Hct (39.0-53.0) % MCHC (31.0-37.0) g/dL RDW (11.5-15.5) % Plt Count (150-450) k/uL Neutrophils # (1.3-7.7) k/uL Chloride (98-107) mmol/L Carbon Dioxide (22-30) mmol/L BUN (9-20) mg/dL Creatinine (0.66-1.25) mg/dL POC Glucose (mg/dL) 195 H 187 H 220 H (75-99) mg/dL Calcium (8.4-10.2) mg/dL Crossmatch 03/28/17 03/28/17 03/29/17 Range/Units 22:07 23:05 00:47 WBC (3.8-10.6) k/uL RBC (4.30-5.90) m/uL Hgb (13.0-17.5) gm/dL Hct (39.0-53.0) % MCHC (31.0-37.0) g/dL RDW (11.5-15.5) % Plt Count (150-450) k/uL Neutrophils # (1.3-7.7) k/uL Chloride (98-107) mmol/L Carbon Dioxide (22-30) mmol/L BUN (9-20) mg/dL Creatinine (0.66-1.25) mg/dL POC Glucose (mg/dL) 167 H 106 H 100 H (75-99) mg/dL Calcium (8.4-10.2) mg/dL Crossmatch 03/29/17 03/29/17 03/29/17 Range/Units 01:55 02:59 04:02 WBC (3.8-10.6) k/uL RBC (4.30-5.90) m/uL Hgb (13.0-17.5) gm/dL Hct (39.0-53.0) % MCHC (31.0-37.0) g/dL RDW (11.5-15.5) % Plt Count (150-450) k/uL Neutrophils # (1.3-7.7) k/uL Chloride (98-107) mmol/L Carbon Dioxide (22-30) mmol/L BUN (9-20) mg/dL Creatinine (0.66-1.25) mg/dL POC Glucose (mg/dL) 143 H 162 H 162 H (75-99) mg/dL Calcium (8.4-10.2) mg/dL Crossmatch 03/29/17 03/29/17 03/29/17 Range/Units 04:25 04:52 05:27 WBC 14.5 H (3.8-10.6) k/uL RBC 2.57 L (4.30-5.90) m/uL Hgb 7.5 L (13.0-17.5) gm/dL Hct 24.4 L (39.0-53.0) % MCHC 30.9 L (31.0-37.0) g/dL RDW 16.0 H (11.5-15.5) % Plt Count (150-450) k/uL Neutrophils # 11.6 H (1.3-7.7) k/uL Chloride 113 H (98-107) mmol/L Carbon Dioxide 19 L (22-30) mmol/L BUN 111 H* (9-20) mg/dL Creatinine 3.58 H (0.66-1.25) mg/dL POC Glucose (mg/dL) 109 H (75-99) mg/dL Calcium 7.9 L (8.4-10.2) mg/dL Crossmatch 03/29/17 03/29/17 03/29/17 Range/Units 05:27 06:03 06:50 WBC 16.3 H (3.8-10.6) k/uL RBC 2.87 L (4.30-5.90) m/uL Hgb 8.2 L (13.0-17.5) gm/dL Hct 26.0 L (39.0-53.0) % MCHC (31.0-37.0) g/dL RDW (11.5-15.5) % Plt Count 456 H (150-450) k/uL Neutrophils # 12.9 H (1.3-7.7) k/uL Chloride (98-107) mmol/L Carbon Dioxide (22-30) mmol/L BUN (9-20) mg/dL Creatinine (0.66-1.25) mg/dL POC Glucose (mg/dL) 103 H 123 H (75-99) mg/dL Calcium (8.4-10.2) mg/dL Crossmatch 03/29/17 03/29/17 03/29/17 Range/Units 08:08 09:56 10:49 WBC (3.8-10.6) k/uL RBC (4.30-5.90) m/uL Hgb (13.0-17.5) gm/dL Hct (39.0-53.0) % MCHC (31.0-37.0) g/dL RDW (11.5-15.5) % Plt Count (150-450) k/uL Neutrophils # (1.3-7.7) k/uL Chloride (98-107) mmol/L Carbon Dioxide (22-30) mmol/L BUN (9-20) mg/dL Creatinine (0.66-1.25) mg/dL POC Glucose (mg/dL) 137 H 169 H 173 H (75-99) mg/dL Calcium (8.4-10.2) mg/dL Crossmatch 03/29/17 03/29/17 Range/Units 11:37 12:10 WBC (3.8-10.6) k/uL RBC (4.30-5.90) m/uL Hgb (13.0-17.5) gm/dL Hct (39.0-53.0) % MCHC (31.0-37.0) g/dL RDW (11.5-15.5) % Plt Count (150-450) k/uL Neutrophils # (1.3-7.7) k/uL Chloride (98-107) mmol/L Carbon Dioxide (22-30) mmol/L BUN (9-20) mg/dL Creatinine (0.66-1.25) mg/dL POC Glucose (mg/dL) 159 H 165 H (75-99) mg/dL Calcium (8.4-10.2) mg/dL Crossmatch Assessment and Plan Plan: 1 acute abdomen status post extra laparotomy and repair of a perforated peptic ulcer a modified Don patch and open cholecystectomy. Patient is postop day # 12 2 shock secondary to septic in nature secondary to intra-abdominal sepsis complicated by perforated peptic ulcer and cholecystitis. Patient has been stabilized. The patient is currently off pressors. Antibiotic coverage as per infectious disease on the case. 3 hypotension secondary to above , recovered 4 acute respiratory failure, a complication of septic shock. Extubated without any major difficulties. 5 acute kidney injury on top of chronic renal failure. Patient has a nonoliguric acute kidney injury secondary to ischemic ATN secondary to hypotension and sepsis. The patient has stage II kidney disease at baseline due to diabetic nephropathy. 6 acute lactic acidosis, recovered 7 diabetes mellitus with poorly controlled blood sugar secondary to sepsis currently on insulin drip for blood sugar control. 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 17 MRSA in the sputum, likely a colonizer. 18 worsening postoperative anemia, multifactorial, received a unit of packed RBCs yesterday, hemoglobin today is 8.2. Recommendation: Continue present supportive care measures, continue antibiotics , continue present dose of diuretics, monitor labs on a daily basis, patient will be kept in the ICU, not quite ready for transfer. Patient is back on insulin drip. hence we will continue to evaluate and monitor in the ICU closely. Aranesp was added, no need for dialysis at this point. Encourage incentive spirometry and deep cough and deep breathing patient will need a long course of rehab. Prognosis remains very poor and guarded. For some reason, the patient does not seem to have the will to thrive. Time with Patient: Less than 30
[2017-03-29] MEDS: FAT EMULSION 20% 250 ML in EMPTY BAG 1 BAG IV SCH (13:47)
[2017-03-29 13:51] LABS: Glucose,Whole Blood 195 mg/dL (75-99)
[2017-03-29 17:10] LABS: Glucose,Whole Blood 129 mg/dL (75-99)
[2017-03-29] MEDS: HYDROmorphone 1 MG/ML 1 ML SYRINGE IVP PRN (18:33)
[2017-03-29 18:41] LABS: Glucose,Whole Blood 184 mg/dL (75-99)
[2017-03-29 20:00] LABS: Glucose,Whole Blood 168 mg/dL (75-99)
[2017-03-29 20:59] LABS: Glucose,Whole Blood 138 mg/dL (75-99)
[2017-03-29 22:03] LABS: Glucose,Whole Blood 126 mg/dL (75-99)
[2017-03-29 23:02] LABS: Glucose,Whole Blood 143 mg/dL (75-99)
[2017-03-30 00:15] LABS: Glucose,Whole Blood 146 mg/dL (75-99)
[2017-03-30] MEDS: HEPARIN SODIUM,PORCINE 5,000 UNIT/ML 1 ML VIAL SQ SCH ×3 (01:33→16:14)
[2017-03-30 01:38] LABS: Glucose,Whole Blood 155 mg/dL (75-99)
[2017-03-30 02:07] LABS: Glucose,Whole Blood 160 mg/dL (75-99)
[2017-03-30 03:03] LABS: Glucose,Whole Blood 164 mg/dL (75-99)
[2017-03-30 04:22] LABS: Glucose,Whole Blood 157 mg/dL (75-99)
[2017-03-30 04:40] LABS: Basophils # (A) 0.1 k/uL (0-0.2); Basophils % (A) 1 %; CH 29.2; CHCM 31.5; Eosinophils # (A) 0.2 k/uL (0-0.7); Eosinophils % (A) 1 %; HCT 25.4 % (39.0-53.0); HDW 3.02; HGB 7.7 gm/dL (13.0-17.5); Hypochromasia Slight; Luc # (Auto) 0.39; Luc % (Auto) 3; Lymphocytes # (A) 1.6 k/uL (1.0-4.8); Lymphocytes % (A) 11 %; MCH 28.4 pg (25.0-35.0); MCHC 30.4 g/dL (31.0-37.0); MCV 93.2 fL (80.0-100.0); Mean Platelet Volume 8.9; Monocytes # (A) 0.7 k/uL (0-1.0); Monocytes % (A) 5 %; Neutrophils # (A) 11.2 k/uL (1.3-7.7); Neutrophils % (A) 79 %; RBC 2.73 m/uL (4.30-5.90); RDW 15.4 % (11.5-15.5); WBC 14.2 k/uL (3.8-10.6)
[2017-03-30 04:56] LABS: Calcium 8.2 mg/dL (8.4-10.2); Magnesium 2.3 mg/dL (1.6-2.3); Phosphorous 5.4 mg/dL (2.5-4.5); Potassium 4.7 mmol/L (3.5-5.1)
[2017-03-30 05:01] LABS: Glucose,Whole Blood 133 mg/dL (75-99)
[2017-03-30] MEDS: 1: MVI, ADULT NO.4 WITH VIT K 10 ML, TRACE (CONC-1ML/DOSE) 1 ML, POTASSIUM ACETATE 20 ME IV SCH ×5 (06:08)
[2017-03-30 06:14] LABS: Glucose,Whole Blood 91 mg/dL (75-99)
[2017-03-30 07:05] LABS: Glucose,Whole Blood 99 mg/dL (75-99)
[2017-03-30] MEDS: IPRATROPIUM-ALBUTEROL 3 ML NEB INHALATION SCH ×4 (07:33→18:58)
[2017-03-30 07:52] LABS: Glucose,Whole Blood 107 mg/dL (75-99)
--- NOTE | 2017-03-30 07:56 | XR ---
EXAMINATION TYPE: XR chest 1V portable DATE OF EXAM: 03/30/2017 COMPARISON: 03/29/2017 INDICATION: Pleural effusion TECHNIQUE: Single frontal view of the chest is obtained. FINDINGS: The heart size is slightly prominent. The pulmonary vasculature is normal. Small left pleural effusion is present. Small right pleural effusion may be present. There is increas ed opacity over the right mid and lower lung field with some air bronchograms. Correlate for atelecta sis and pneumonia. Minimal compressive atelectasis may be at the left base. The PICC line enters on the right tip in the superior vena cava region. EKG leads overlie the chest. Findings appear stable from prior exam. IMPRESSION: 1. Small bilateral pleural effusions. 2. Right lower lobe infiltrate. Correlate for pneumonia. Continued Follow-up is recommended.
[2017-03-30] MEDS: PIPERACILLIN-TAZOBACTAM 3.375 GM in DEXTROSE/WATER 1 50ML.BAG IVPB SCH ×2 (07:57→16:14)
[2017-03-30] MEDS ORDERED: VANCOMYCIN IVPB ONE ×2 (08:00)
[2017-03-30] MEDS ORDERED: DEXTROSE 5% IVPB ONE ×2 (08:00)
[2017-03-30] MEDS ORDERED: WATER IVPB ONE ×2 (08:00)
--- NOTE | 2017-03-30 08:21 | P.PN ---
Subjective Principal diagnosis: This is a 66-year-old seen with acute kidney injury secondary to sepsis. He presented with a perforated peptic ulcer and underwent exploratory laparotomy and had cholecystectomy. His creatinine had improved to 3.5 as of 2 days ago on 03/28/2017 and then has started to worsen again. His vital signs are stable is afebrile has mild cough is otherwise denying any complaints no abdominal pain. He is on TPN 50 mL an hour but is eating most of what is given to him as liquids. He is on Lasix and vancomycin. The vancomycin level was 15.8 Currently he is on room air. His diarrhea is better in continue to have a rectal tube as well as a Castellanos catheter. His chest x-ray seems to be worsening on the right side. 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 He is known with diabetes, peripheral vascular disease, diabetic neuropathy and retinopathy and nephropathy with chronic kidney disease stage III, with a creatinine of 2.4 Objective - Vital Signs Vital signs: Vital Signs Temp 98.4 F 03/30/17 04:00 Pulse 112 H 03/30/17 07:49 Resp 24 03/30/17 07:39 BP 121/66 03/30/17 07:00 Pulse Ox 94 L 03/30/17 07:33 Intake & Output 03/29/17 03/30/17 03/30/17 18:59 06:59 18:59 Intake Total 2318.917 1068.127 30 Output Total 2815 2260 295 Balance -496.083 -1191.873 -265 Weight 92.8 kg 98.9 kg 89.8 kg Intake: IV 320 160.0 30 0.9 at 20 ml/hr 220 110 30 Fluconazole in NaCl Iso- 50 Osm 100mg in Saline 1 50ml.bag @50mls/hr IVPB Daily Piperacillin-Tazobactam 3 50 50.0 .375 gm In Dextrose/Water 1 50ml.bag @ 12.5 mls/hr IVPB Q8HR XENA Rx#: [id number] Intake, IV Titration 1058.917 908.127 Amount Insulin Regular 100 unit 17.917 35.627 In Sodium Chloride 0.9% 100 ml @ Per Protocol IV .Q0M XENA Rx#:[id number] Mvi, Adult No.4 with Vit 1041 872.5 K 10 ml Trace (Conc-1Ml/ Dose) 1 ml Potassium Acetate 20 meq Parenteral Electrolytes 20 ml In Amino Acid 5%-D15w 1,000 ml @ 50 mls/hr IV .BY DURATION [facility] Rx#: [id number] Oral 940 Output: Drainage 90 30 15 Right Lower Abdomen 90 30 15 Urine 2725 1030 180 Stool 0 1200 100 Other: Voiding Method Indwelling Catheter Indwelling Catheter Indwelling Catheter # Bowel Movements 1 1 1 ABP, PAP, CO, CI - Last Documented Arterial Blood Pressure 146/54 On examination is awake alert oriented HEENT exam no JVP neck is supple no facial asymmetry Lungs are clear to auscultation with occasional crackles on the right side. Good air entry bilaterally. He is in normal sinus rhythm. Heart sounds are unremarkable for any murmur rub gallop Abdomen is soft nontender possible that present but diminished. Extremity exam was mild edema of the legs. Neurologically awake alert oriented but has generalized weakness - Labs CBC & Chem 7: 03/30/17 04:27 03/30/17 04:27 Labs: Abnormal Lab Results - Last 24 Hours (Table) 03/29/17 03/29/17 03/29/17 Range/Units 09:56 10:49 11:37 WBC (3.8-10.6) k/uL RBC (4.30-5.90) m/uL Hgb (13.0-17.5) gm/dL Hct (39.0-53.0) % MCHC (31.0-37.0) g/dL Neutrophils # (1.3-7.7) k/uL Sodium (137-145) mmol/L Chloride (98-107) mmol/L Carbon Dioxide (22-30) mmol/L BUN (9-20) mg/dL Creatinine (0.66-1.25) mg/dL Glucose (74-99) mg/dL POC Glucose (mg/dL) 169 H 173 H 159 H (75-99) mg/dL Calcium (8.4-10.2) mg/dL Phosphorus (2.5-4.5) mg/dL 03/29/17 03/29/17 03/29/17 Range/Units 12:10 13:49 17:08 WBC (3.8-10.6) k/uL RBC (4.30-5.90) m/uL Hgb (13.0-17.5) gm/dL Hct (39.0-53.0) % MCHC (31.0-37.0) g/dL Neutrophils # (1.3-7.7) k/uL Sodium (137-145) mmol/L Chloride (98-107) mmol/L Carbon Dioxide (22-30) mmol/L BUN (9-20) mg/dL Creatinine (0.66-1.25) mg/dL Glucose (74-99) mg/dL POC Glucose (mg/dL) 165 H 195 H 129 H (75-99) mg/dL Calcium (8.4-10.2) mg/dL Phosphorus (2.5-4.5) mg/dL 03/29/17 03/29/17 03/29/17 Range/Units 18:39 19:58 20:57 WBC (3.8-10.6) k/uL RBC (4.30-5.90) m/uL Hgb (13.0-17.5) gm/dL Hct (39.0-53.0) % MCHC (31.0-37.0) g/dL Neutrophils # (1.3-7.7) k/uL Sodium (137-145) mmol/L Chloride (98-107) mmol/L Carbon Dioxide (22-30) mmol/L BUN (9-20) mg/dL Creatinine (0.66-1.25) mg/dL Glucose (74-99) mg/dL POC Glucose (mg/dL) 184 H 168 H 138 H (75-99) mg/dL Calcium (8.4-10.2) mg/dL Phosphorus (2.5-4.5) mg/dL 03/29/17 03/29/17 03/30/17 Range/Units 22:01 23:00 00:13 WBC (3.8-10.6) k/uL RBC (4.30-5.90) m/uL Hgb (13.0-17.5) gm/dL Hct (39.0-53.0) % MCHC (31.0-37.0) g/dL Neutrophils # (1.3-7.7) k/uL Sodium (137-145) mmol/L Chloride (98-107) mmol/L Carbon Dioxide (22-30) mmol/L BUN (9-20) mg/dL Creatinine (0.66-1.25) mg/dL Glucose (74-99) mg/dL POC Glucose (mg/dL) 126 H 143 H 146 H (75-99) mg/dL Calcium (8.4-10.2) mg/dL Phosphorus (2.5-4.5) mg/dL 03/30/17 03/30/17 03/30/17 Range/Units 01:36 02:05 03:02 WBC (3.8-10.6) k/uL RBC (4.30-5.90) m/uL Hgb (13.0-17.5) gm/dL Hct (39.0-53.0) % MCHC (31.0-37.0) g/dL Neutrophils # (1.3-7.7) k/uL Sodium (137-145) mmol/L Chloride (98-107) mmol/L Carbon Dioxide (22-30) mmol/L BUN (9-20) mg/dL Creatinine (0.66-1.25) mg/dL Glucose (74-99) mg/dL POC Glucose (mg/dL) 155 H 160 H 164 H (75-99) mg/dL Calcium (8.4-10.2) mg/dL Phosphorus (2.5-4.5) mg/dL 03/30/17 03/30/17 03/30/17 Range/Units 04:20 04:27 04:27 WBC 14.2 H (3.8-10.6) k/uL RBC 2.73 L (4.30-5.90) m/uL Hgb 7.7 L (13.0-17.5) gm/dL Hct 25.4 L (39.0-53.0) % MCHC 30.4 L (31.0-37.0) g/dL Neutrophils # 11.2 H (1.3-7.7) k/uL Sodium 146 H (137-145) mmol/L Chloride 114 H (98-107) mmol/L Carbon Dioxide 19 L (22-30) mmol/L BUN 111 H* (9-20) mg/dL Creatinine 3.70 H (0.66-1.25) mg/dL Glucose 149 H (74-99) mg/dL POC Glucose (mg/dL) 157 H (75-99) mg/dL Calcium 8.2 L (8.4-10.2) mg/dL Phosphorus 5.4 H (2.5-4.5) mg/dL 03/30/17 03/30/17 Range/Units 04:59 07:41 WBC (3.8-10.6) k/uL RBC (4.30-5.90) m/uL Hgb (13.0-17.5) gm/dL Hct (39.0-53.0) % MCHC (31.0-37.0) g/dL Neutrophils # (1.3-7.7) k/uL Sodium (137-145) mmol/L Chloride (98-107) mmol/L Carbon Dioxide (22-30) mmol/L BUN (9-20) mg/dL Creatinine (0.66-1.25) mg/dL Glucose (74-99) mg/dL POC Glucose (mg/dL) 133 H 107 H (75-99) mg/dL Calcium (8.4-10.2) mg/dL Phosphorus (2.5-4.5) mg/dL Assessment and Plan Plan: Impression 1. Acute kidney injury with ATN, with slowly improving creatinine to 3.5 as of 03/27/2017, came up to 3.58 as of yesterday 03/29/2017, and again up to 3.7.. This may reflect an element of intravascular volume the patient as he is on Lasix and is in negative balance, as well as vancomycin although the level is 15.8. 2. Status post perforated peptic ulcer and status post exploratory lap and cholecystectomy 03/16/2017 3. On TPN 4. Mild non-gap acidosis secondary to acute kidney injury and possibly from the TPN. Bicarb is 19 and anion gap is 13. This is stable. 5. Chronic kidney disease stage III B with diabetic nephropathy creatinine was 2. 07/14/2016. 6. Slight worsening chest x-ray finding on the right, pneumonia, sputum grew MRSA. Clinically very stable. Recommendation. 1. Continue TPN at 50 mL per minute. 2. Consider discontinuation of Lasix as well as change vancomycin to non- nephrotoxic antibiotic for his MRSA in sputum. 3. Maintain aggressive oral protein calorie intake including ensure 1 can 3 times a day in addition to the other liquid diet he is receiving.
[2017-03-30] MEDS: FLUCONAZOLE IN NACL,ISO-OSM 100 MG in SALINE 1 50ML.BAG IVPB SCH (09:03)
[2017-03-30] MEDS: PANTOPRAZOLE 40 MG/10 ML VIAL IV SCH ×2 (09:04→21:11)
[2017-03-30] MEDS: FUROSEMIDE 10 MG/ML 4 ML VIAL IV SCH (09:04)
[2017-03-30 09:16] LABS: Glucose,Whole Blood 149 mg/dL (75-99)
[2017-03-30 10:21] LABS: Glucose,Whole Blood 215 mg/dL (75-99)
--- NOTE | 2017-03-30 11:22 | P.PN ---
Subjective Principal diagnosis: Acute abdominal sepsis and perforation of peptic ulcer. A 66-year-old male patient who came into the intensive care unit after undergoing expiratory laparotomy and repair of a perforated peptic ulcer with a modified Don patch and open cholecystectomy. Surgery was done last night and the patient was brought into the intensive care unit intubated on a mechanical ventilator. According to the reported history the patient was having 3-4 days history of a vague abdominal pain. This being gradually got worse. The patient was also having constipation. He had some nausea without vomiting. Appetite was diminished. No bright red blood per rectum. The pain was mainly over the central abdomen. No history of any peptic ulcer disease or diverticular disease. The x-ray of the abdomen in the emergency department showed pneumoperitoneum and the CAT scan confirmed the presence of a large volume of free air. The gallbladder was also thickened. The majority of the air was in the upper abdomen. Intraoperatively, the patient was found to have a perforated peptic ulcer and a gangrenous gallbladder. The patient is currently in the intensive care unit. The patient has received a total of 7 L of IV fluids. He has chronic renal failure and had developed acute kidney injury on top of chronic renal insufficiency and currently is oliguric producing only 5-10 mL an hour of urine output. The patient is intubated on a mechanical ventilator. The patient on assist control mode at the rate of 10, tidal volume 450, FiO2 of 40% and a PEEP of 5. His blood. From this morning showed a pH of 7.31 with a pCO2 of 27 and pO2 of 198 and based on that the FiO2 was weaned down. Chest x-ray shows no pneumothorax or pneumoperitoneum. ET tube is in a good location. Hemodynamically, the patient was doing poorly. He was in septic shock. He was tachycardic with a heart rate in the 1:30 range. This improved with fluid resuscitation his current heart rate is sinus at 110. He also was on higher doses of pressors and norepinephrine infusion was running at 25 mics and currently is down to 50 mics. He is covered with a combination of IV Zosyn, IV Diflucan and IV Flagyl. He is afebrile for now. Is sedated with Diprivan. He has a below-knee amputation on the right lower extremity and the feet on the left lower extremity shows marked diminished pulses at is obtainable by Doppler. Lactic acid level was 5.4 at time of admission is currently down to 2.7. He has a right IJ triple-lumen catheter. He has a right upper extremity radial art line. He also has a LOUISA drain in his right lower quadrant area. On 03/18/2017 I'm seeing this patient in the follow-up. The patient remains intubated on a mechanical ventilator. He remains an assist-control mode of ventilation at a tidal volume 450, rate of 24, FiO2 of 40% and a PEEP of 5. His blood gases from this morning showed a pH of 7.26 with a pCO2 of 30 and pO2 of 155. Chest x-ray from this morning shows small bilateral pleural effusions, ET tube is in a good location, NG tube is in a good location and there is no acute pulmonary infiltrates or consolidations. Hemodynamically, the patient is still pressor dependent at 15 mics. Overnight he had to be as high as 20 mics and then he got weaned again down to 15 g of norepinephrine infusion. Urine output is gradually improving. Over the past 12 hours he produced approximately 50 mL of urine output. The patient is still having intermittent renal function and the creatinine still elevated at 4.8 which is comparable to yesterday. Rest of the electrodes are within normal. The patient is still acidotic with a bicarb level of 13. He received a total of 3 L of normal saline and 2 A of 12.5 g of albumin. He is still on a combination of Zosyn, Flagyl and Diflucan. All of the cultures of been negative. He remains nothing by mouth. Surgical wound site is clean and intact. LOUISA drain is draining approximately 50 mL of serosanguineous material. On 03/19/2017 the patient remains intubated on a mechanical ventilator. He is still respiratory failure. He is still in shock. He remains assist-control mode of ventilation with essentially the same vent settings. He is still requiring pressors and levo fed is running somewhere between 8-10 mics. He is afebrile. Echocardiogram was done at the bedside and showed a preserved LV function without any signs of heart failure. Remains sedated on Diprivan. A sedation holiday will be given to him today and try to lower down agree off sedation if possible. Remains on broad-spectrum antibiotics. Surgical wound site is dry clean and intact. Continues to be an acute kidney injury on top of chronic renal failure. No major improvement in the renal function although the patient has become nonoliguric at this point. He is producing adequate amount of urine output. His been aggressively resuscitated IV fluids and colloids and he is in a positive fluid balance and he has demonstrated some edema both in the upper and lower extremities. He remains acidotic. A follow-up lactic acid level will be obtained. Remains nothing by mouth. No clearance from surgery for enteral feeding. No TPN initiated yet. The patient is seen again today 03/20/2017 in follow-up in the intensive care unit. He remains intubated on the mechanical ventilator and assist control mode with a rate of 24, tidal volume 450, FiO2 40% and a PEEP of 5. Morning blood gases reveal a P O2 170, pCO2 of 26 and a pH of 7.20. This was done on 40 % FiO2. He is currently off sedation. He is fluttering his eyelids open but not following any commands at this point. He remains on norepinephrine currently at 3 mcg/m. He is also on a 0.9 normal saline at 40 miles per hour. His chest x-ray does show overall stable findings, there is low lung volumes with small bilateral pleural effusions and basilar atelectasis. His sputum culture reveals methicillin-resistant Staphylococcus aureus. Blood culture reveals no growth to date. He remains on vancomycin and metronidazole. He did have 150 MLS returned from the gastric tube which remains to suction. He does remain acidotic with a bicarb of 9. Chloride is 123. Current BUN 83, creatinine 4.41. The patient is seen again today 03/21/2017 in follow-up in the intensive care unit. He remains intubated on mechanical ventilator at a rate of 24, tidal volume 450, FiO2 40% and a PEEP of 5. Morning blood gases reveal a pH of 7.30, pCO2 of 26, pO2 of 163. The patient does remain off sedation and does open his eyes and follows simple commands. He is quite weak. He is currently off pressors. His white count is improving currently 14.1. Hemoglobin stable at 8.5. Sodium 147, chloride 124, bicarb improved to 11. Creatinine remains high at 4.70. He had been initiated on a bicarbonate drip yesterday to improve his acidosis.. On 03/22/2017 the patient is being seen in follow-up. The patient was taken off sedation this morning and he was quite awake. Bit lethargic yet arousable. He was moving extremities and responding to simple commands. He was off pressors. Renal function remains impaired however the patient was producing adequate amount of urine output. An ongoing issue was his underlying metabolic acidosis. He was placed on a bicarb drip briefly however based on the absence of significant bicarbonate stock in the hospital day infusion was stopped. He is still on TPN for nutritional support. He is receiving acetate through the TPN. Currently is on a mechanical ventilator. His assist-control at the rate of 24, tidal volume 450, FiO2 of 40% and a PEEP of 5. Chest x-rays showing small bilateral pleural effusion and ET tube is in good location. The blood gases from earlier this morning showed a pH of 7.32 with a pCO2 of 24 and pO2 155. Based on this, check his weaning parameters and he had a rapid shallow breathing index of less than 50. I give the patient a spontaneous breathing trial for a total of 45 minutes and subsequent blood gases showed a pH of 7.35 with a pCO2 of 25 and pO2 of 165. I give the patient 2 A of bicarb for a bicarb level of 14. Subsequently I extubated the patient. Postextubation, he held himself well. No tachypnea. No respiratory distress. NG tube still in place. The patient's BUN is at 97 creatinine is at 4.5. He was given Lasix IV. He is in significant fluid overload including edema in the lower extremities in the scrotum. Antibiotic coverage includes a combination of Zosyn , daptomycin and Diflucan. Sputum at shown MRSA. 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 Upon subsequent follow-up, daptomycin was discontinued and the patient was switched to vancomycin. On 03/23/2017 the patient is being seen in follow-up. The patient was successfully extubated yesterday and currently is on oxygen at room air. Pulse ox is above 90%. He has an MRSA in the sputum which is probably a colonizer. He is still on broad-spectrum antibiotics. The surgical wound site is clean. Bowel sounds are absent. He remains on TPN for nutritional support. He is bicarb level is gradually improving it's up to 16. He still has extensive edema both in upper and lower extremities and he also edema in his scrotum. I started him on Lasix 40 mg every 12 hours and he is producing approximately 3 L of urine output. Nevertheless, that fluid balance remains positive. He is on a combination of vancomycin, Zosyn and Diflucan for now. He is on TPN for nutritional support. He is on insulin drip at 8 units an hour. He is having some purulent drainage from the LOUISA drain and this was noted this morning. The material will be sent for culture. Afebrile. Surgeries on the case. Awake yet lethargic. Comfortable. On 03/24/2017, patient remains off mechanical ventilation, he was eventually extubated 2 days ago, and he is on room air. Remains on broad-spectrum antibiotics, surgical wound seems to be relatively clean, bowel sounds remain absent, patient is presently on TPN for nutritional support. Continues to have extensive edema in upper or lower extremities and lower extremities and in the scrotal area. Remains on diuretics with good and excellent urine output. Patient is on vancomycin and Zosyn and Diflucan. He is also on insulin drip. WBC count is 15.0 hemoglobin is 8.5. BUN is 105 creatinine is down to 3.71 and bicarb is 19. On 03/25/2017, patient seems to be doing better, he seems to be dehydrated,/ intravascularly depleted, but significant amount of swelling noted in his lower extremities and in the scrotal area. Lips are extremely dry. Renal functioning continues to improve, but still significantly abnormal, hence I will go ahead and cut down on diuretics today. Patient seems to be appropriate , in no distress, hemodynamically stable, afebrile. Patient is on room air with O2 sat of 97%, and his blood pressure is 105/51. BUN is 115 creatinine is down to 3.50. Hemoglobin is 8.3 with WBC count of 15.8. Latex are normal. On 03/26/2017, patient is basically about the same. Denies any specific complaints, but he seems weak, frail, and pale. He also seems dehydrated with very dry mucous membranes noted. Patient remains nonoliguric with acute on chronic kidney disease creatinine is 3.5 today. Patient was seen by nephrology today, and he will be started on oral sodium bicarb, upper GI scheduled to be done today, patient is also receiving potassium acetate, and no emergent need for renal replacement at this time. Aranesp was added. CBC showed a hemoglobin of 8.1 WBC count is 18.0. Basic metabolic profile was reviewed, BUN is 114 creatinine is 3.60 today. Slightly worse compared to yesterday when it was 3.5 yesterday. Reevaluated on 03/27/2017, patient is overall about the same, seems to be slightly more awake and more responsive today compared to the last few days. But overall he remains weak frail and pale. Continues to have good urine output , labs were reviewed hemoglobin is 7.3 today, WBC count is 15.5. Electrolytes and renal profile were noted, BUN is 113 creatinine is 3.50 holding the same as the last couple of days. All labs were reviewed, chest x-ray was also reviewed , and it showed improved small pleural effusion and some bibasilar atelectasis. Reevaluated today on 03/28/2017, patient is slightly more awake compared to yesterday, continues to remain generally weak, looks fatigued, pale looking, hemoglobin is down to 7.0, hence I believe considering his overall clinical status the patient will likely benefit from a unit of packed RBCs which will be given today. Urine output seems to be adequate, he has been in a negative balance over the last 24 hours. Swelling seems to be improving especially in the lower extremities and in the scrotal area. But not resolved. Chest x-ray is showing more atelectasis at the bases, no clear-cut evidence of pneumonia. Patient remains on antibiotics for his abdominal sepsis. All labs were reviewed hemoglobin is 7.0 BUN is 108 creatinine 3.50 holding. Blood sugar remains a bit elevated, patient is back on insulin drip as of last night. Patient was reevaluated today on 03/29/2017, remains very frail looking and weak also looking pale. Did receive a unit of packed RBCs yesterday, hemoglobin today is 8.2. Chest x-ray however is showing some deterioration in the right base, I still believe it is mostly atelectasis, however the patient is an excellent set up for possible pneumonia and/or acute lung injury. He is doing very poorly with incentive spirometry, he is still on bronchodilators, and remains on antibiotics as per infectious disease on the case. Remains on TPN, renal profile is basically the same creatinine is 3.58 BUN is 111. Closely monitored by nephrology. Patient was reevaluated today on 03/30/2017, seems to be a bit more awake today, more responsive, and bit stronger, short tempered when advised to do some deep coughing and breathing. Chest x-ray continues to show some atelectasis at the bases especially at the right lower lobe. WBC count is 14.2 today. Hemoglobin is 7.7. Basic metabolic profile is relatively unremarkable however his BUN remains 111 and creatinine is 3.70. His diuretics have been placed on hold, however I have a feeling the patient will require to go back on them since he develops significant swelling easily without diuresis. Objective - Vital Signs Vital signs: Vital Signs Temp 98.4 F 03/30/17 09:00 Pulse 108 H 03/30/17 11:11 Resp 24 03/30/17 10:00 BP 127/64 03/30/17 10:00 Pulse Ox 91 L 03/30/17 10:00 Intake & Output 03/29/17 03/30/17 03/30/17 18:59 06:59 18:59 Intake Total 2318.917 1068.127 621.061 Output Total 2815 2260 410 Balance -496.083 -1191.873 211.061 Weight 92.8 kg 98.9 kg 89.8 kg Intake: IV 320 160.0 170 0.9 at 20 ml/hr 220 110 70 Fluconazole in NaCl Iso- 50 50 Osm 100mg in Saline 1 50ml.bag @50mls/hr IVPB Daily Piperacillin-Tazobactam 3 50 50.0 50 .375 gm In Dextrose/Water 1 50ml.bag @ 12.5 mls/hr IVPB Q8HR [facility] Rx#: [id number] Intake, IV Titration 1058.917 908.127 251.061 Amount Insulin Regular 100 unit 17.917 35.627 1.061 In Sodium Chloride 0.9% 100 ml @ Per Protocol IV .Q0M [facility] Rx#:[id number] Mvi, Adult No.4 with Vit 1041 872.5 K 10 ml Trace (Conc-1Ml/ Dose) 1 ml Potassium Acetate 20 meq Parenteral Electrolytes 20 ml In Amino Acid 5%-D15w 1,000 ml @ 50 mls/hr IV .BY DURATION [facility] Rx#: [id number] Vancomycin 1,500 mg In 250 Dextrose 5% in Water 250 ml @ 125 mls/hr IVPB ONCE ONE Rx#:[id number] Oral 940 200 Output: Drainage 90 30 30 Right Lower Abdomen 90 30 30 Urine 2725 1030 280 Stool 0 1200 100 Other: Voiding Method Indwelling Catheter Indwelling Catheter Indwelling Catheter # Bowel Movements 1 1 1 ABP, PAP, CO, CI - Last Documented Arterial Blood Pressure 146/54 - Exam Physical Exam: Revealed a 66-year-old white male, pale looking, weak, in no distress. HEENT:[Neck is supple.] [No neck masses.] [No thyromegaly.] [No JVD.] Mucous membranes seem to be extremely dry. Chest: [Diminished breath sounds at the bases no crackles or rhonchi or wheezes. ] Cardiac Exam: [Normal S1 and S2, no S3 gallop, no murmur.] Abdomen: [Postsurgical, Soft, likely tender to palpation,, no megaly, no rebound, no guarding, managed bowel sounds. Surgical incision seems to be clean , d Extremities: [2 + bipedal edema, no clubbing, no cyanosis.] Right Below amputation was noted.] Evidence of amputated toes in the left foot except the left big toe. Neurological Exam: Generally weak and frail, but no focal neurologic deficit is noted. - Labs CBC & Chem 7: 03/30/17 04:27 03/30/17 04:27 Labs: Abnormal Lab Results - Last 24 Hours (Table) 03/29/17 03/29/17 03/29/17 Range/Units 11:37 12:10 13:49 WBC (3.8-10.6) k/uL RBC (4.30-5.90) m/uL Hgb (13.0-17.5) gm/dL Hct (39.0-53.0) % MCHC (31.0-37.0) g/dL Neutrophils # (1.3-7.7) k/uL Sodium (137-145) mmol/L Chloride (98-107) mmol/L Carbon Dioxide (22-30) mmol/L BUN (9-20) mg/dL Creatinine (0.66-1.25) mg/dL Glucose (74-99) mg/dL POC Glucose (mg/dL) 159 H 165 H 195 H (75-99) mg/dL Calcium (8.4-10.2) mg/dL Phosphorus (2.5-4.5) mg/dL 08/19/17 08/19/17 08/19/17 Range/Units 17:08 18:39 19:58 WBC (3.8-10.6) k/uL RBC (4.30-5.90) m/uL Hgb (13.0-17.5) gm/dL Hct (39.0-53.0) % MCHC (31.0-37.0) g/dL Neutrophils # (1.3-7.7) k/uL Sodium (137-145) mmol/L Chloride (98-107) mmol/L Carbon Dioxide (22-30) mmol/L BUN (9-20) mg/dL Creatinine (0.66-1.25) mg/dL Glucose (74-99) mg/dL POC Glucose (mg/dL) 129 H 184 H 168 H (75-99) mg/dL Calcium (8.4-10.2) mg/dL Phosphorus (2.5-4.5) mg/dL 03/29/17 03/29/17 03/29/17 Range/Units 20:57 22:01 23:00 WBC (3.8-10.6) k/uL RBC (4.30-5.90) m/uL Hgb (13.0-17.5) gm/dL Hct (39.0-53.0) % MCHC (31.0-37.0) g/dL Neutrophils # (1.3-7.7) k/uL Sodium (137-145) mmol/L Chloride (98-107) mmol/L Carbon Dioxide (22-30) mmol/L BUN (9-20) mg/dL Creatinine (0.66-1.25) mg/dL Glucose (74-99) mg/dL POC Glucose (mg/dL) 138 H 126 H 143 H (75-99) mg/dL Calcium (8.4-10.2) mg/dL Phosphorus (2.5-4.5) mg/dL 03/30/17 03/30/17 03/30/17 Range/Units 00:13 01:36 02:05 WBC (3.8-10.6) k/uL RBC (4.30-5.90) m/uL Hgb (13.0-17.5) gm/dL Hct (39.0-53.0) % MCHC (31.0-37.0) g/dL Neutrophils # (1.3-7.7) k/uL Sodium (137-145) mmol/L Chloride (98-107) mmol/L Carbon Dioxide (22-30) mmol/L BUN (9-20) mg/dL Creatinine (0.66-1.25) mg/dL Glucose (74-99) mg/dL POC Glucose (mg/dL) 146 H 155 H 160 H (75-99) mg/dL Calcium (8.4-10.2) mg/dL Phosphorus (2.5-4.5) mg/dL 03/30/17 03/30/17 03/30/17 Range/Units 03:02 04:20 04:27 WBC (3.8-10.6) k/uL RBC (4.30-5.90) m/uL Hgb (13.0-17.5) gm/dL Hct (39.0-53.0) % MCHC (31.0-37.0) g/dL Neutrophils # (1.3-7.7) k/uL Sodium 146 H (137-145) mmol/L Chloride 114 H (98-107) mmol/L Carbon Dioxide 19 L (22-30) mmol/L BUN 111 H* (9-20) mg/dL Creatinine 3.70 H (0.66-1.25) mg/dL Glucose 149 H (74-99) mg/dL POC Glucose (mg/dL) 164 H 157 H (75-99) mg/dL Calcium 8.2 L (8.4-10.2) mg/dL Phosphorus 5.4 H (2.5-4.5) mg/dL 03/30/17 03/30/17 03/30/17 Range/Units 04:27 04:59 07:41 WBC 14.2 H (3.8-10.6) k/uL RBC 2.73 L (4.30-5.90) m/uL Hgb 7.7 L (13.0-17.5) gm/dL Hct 25.4 L (39.0-53.0) % MCHC 30.4 L (31.0-37.0) g/dL Neutrophils # 11.2 H (1.3-7.7) k/uL Sodium (137-145) mmol/L Chloride (98-107) mmol/L Carbon Dioxide (22-30) mmol/L BUN (9-20) mg/dL Creatinine (0.66-1.25) mg/dL Glucose (74-99) mg/dL POC Glucose (mg/dL) 133 H 107 H (75-99) mg/dL Calcium (8.4-10.2) mg/dL Phosphorus (2.5-4.5) mg/dL 03/30/17 03/30/17 Range/Units 09:15 10:20 WBC (3.8-10.6) k/uL RBC (4.30-5.90) m/uL Hgb (13.0-17.5) gm/dL Hct (39.0-53.0) % MCHC (31.0-37.0) g/dL Neutrophils # (1.3-7.7) k/uL Sodium (137-145) mmol/L Chloride (98-107) mmol/L Carbon Dioxide (22-30) mmol/L BUN (9-20) mg/dL Creatinine (0.66-1.25) mg/dL Glucose (74-99) mg/dL POC Glucose (mg/dL) 149 H 215 H (75-99) mg/dL Calcium (8.4-10.2) mg/dL Phosphorus (2.5-4.5) mg/dL Assessment and Plan Plan: 1 acute abdomen status post extra laparotomy and repair of a perforated peptic ulcer a modified Don patch and open cholecystectomy. Patient is postop day # 12 2 shock secondary to septic in nature secondary to intra-abdominal sepsis complicated by perforated peptic ulcer and cholecystitis. Patient has been stabilized. The patient is currently off pressors. Antibiotic coverage as per infectious disease on the case. 3 hypotension secondary to above , recovered 4 acute respiratory failure, a complication of septic shock. Extubated without any major difficulties. 5 acute kidney injury on top of chronic renal failure. Patient has a nonoliguric acute kidney injury secondary to ischemic ATN secondary to hypotension and sepsis. The patient has stage II kidney disease at baseline due to diabetic nephropathy. 6 acute lactic acidosis, recovered 7 diabetes mellitus with poorly controlled blood sugar secondary to sepsis currently on insulin drip for blood sugar control. 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 17 MRSA in the sputum, likely a colonizer. 18 worsening postoperative anemia, multifactorial, received a unit of packed RBCs yesterday, hemoglobin today is 7.7 Recommendation: Continue present supportive care measures, continue antibiotics , may need to go back on diuretics if needed, monitor labs on a daily basis, patient will be kept in the ICU, not quite ready for transfer. Patient is back on insulin drip. hence we will continue to evaluate and monitor in the ICU closel no need for dialysis at this point. Encourage incentive spirometry and deep cough and deep breathing patient will need a long course of rehab. Prognosis remains very poor and guarded. For some reason, the patient does not seem to have the will to thrive. Time with Patient: Less than 30
[2017-03-30 11:48] LABS: Glucose,Whole Blood 210 mg/dL (75-99)
[2017-03-30] MEDS: HYDROmorphone 1 MG/ML 1 ML SYRINGE IVP PRN (11:52)
[2017-03-30 13:30] LABS: Glucose,Whole Blood 171 mg/dL (75-99)
[2017-03-30] MEDS: FAT EMULSION 20% 250 ML in EMPTY BAG 1 BAG IV SCH (13:41)
[2017-03-30 14:45] LABS: Glucose,Whole Blood 139 mg/dL (75-99)
[2017-03-30 16:18] LABS: Glucose,Whole Blood 92 mg/dL (75-99)
[2017-03-30 17:59] LABS: Glucose,Whole Blood 149 mg/dL (75-99)
[2017-03-30 18:44] LABS: Glucose,Whole Blood 188 mg/dL (75-99)
[2017-03-30 19:49] LABS: Glucose,Whole Blood 188 mg/dL (75-99)
[2017-03-30 21:06] LABS: Glucose,Whole Blood 210 mg/dL (75-99)
[2017-03-30 22:02] LABS: Glucose,Whole Blood 193 mg/dL (75-99)
[2017-03-30 23:01] LABS: Glucose,Whole Blood 179 mg/dL (75-99)
[2017-03-31] MEDS: HEPARIN SODIUM,PORCINE 5,000 UNIT/ML 1 ML VIAL SQ SCH ×3 (00:11→17:56)
[2017-03-31] MEDS: 1: MVI, ADULT NO.4 WITH VIT K 10 ML, TRACE (CONC-1ML/DOSE) 1 ML, POTASSIUM ACETATE 20 ME IV SCH ×10 (00:11→20:27)
[2017-03-31] MEDS: PIPERACILLIN-TAZOBACTAM 3.375 GM in DEXTROSE/WATER 1 50ML.BAG IVPB SCH ×3 (00:11→20:30)
[2017-03-31 00:18] LABS: Glucose,Whole Blood 149 mg/dL (75-99)
[2017-03-31 01:06] LABS: Glucose,Whole Blood 123 mg/dL (75-99)
[2017-03-31 02:06] LABS: Glucose,Whole Blood 104 mg/dL (75-99)
[2017-03-31 03:02] LABS: Glucose,Whole Blood 111 mg/dL (75-99)
[2017-03-31 04:11] LABS: Glucose,Whole Blood 111 mg/dL (75-99)
[2017-03-31 04:32] LABS: Basophils # (A) 0.1 k/uL (0-0.2); Basophils % (A) 1 %; CHCM 31.2; Eosinophils # (A) 0.2 k/uL (0-0.7); Eosinophils % (A) 2 %; HDW 2.95; HGB 7.5 gm/dL (13.0-17.5); Hypochromasia Slight; Luc # (Auto) 0.45; Luc % (Auto) 3; Lymphocytes # (A) 1.4 k/uL (1.0-4.8); Lymphocytes % (A) 11 %; MCH 28.2 pg (25.0-35.0); MCHC 30.1 g/dL (31.0-37.0); MCV 93.7 fL (80.0-100.0); Monocytes # (A) 0.8 k/uL (0-1.0); Monocytes % (A) 6 %; Neutrophils # (A) 10.3 k/uL (1.3-7.7); Neutrophils % (A) 78 %; RBC 2.67 m/uL (4.30-5.90); RDW 15.4 % (11.5-15.5); WBC 13.2 k/uL (3.8-10.6); WBC (Perox) 14.12
[2017-03-31 04:56] LABS: Calcium 7.9 mg/dL (8.4-10.2); Magnesium 2.4 mg/dL (1.6-2.3); Phosphorous 5.2 mg/dL (2.5-4.5); Potassium 4.7 mmol/L (3.5-5.1)
[2017-03-31 05:12] LABS: Glucose,Whole Blood 130 mg/dL (75-99)
[2017-03-31 06:18] LABS: Glucose,Whole Blood 150 mg/dL (75-99)
[2017-03-31 07:01] LABS: Glucose,Whole Blood 157 mg/dL (75-99)
[2017-03-31] MEDS: IPRATROPIUM-ALBUTEROL 3 ML NEB INHALATION SCH ×4 (07:18→19:03)
--- NOTE | 2017-03-31 08:05 | XR ---
EXAMINATION TYPE: XR chest 1V portable DATE OF EXAM: 03/31/2017 COMPARISON: 03/30/2017 HISTORY: Shortness of breath TECHNIQUE: Single frontal view of the chest is obtained. FINDINGS: PICC line noted with diffuse bilateral airspace disease and pleural effusion. Previous merissa jose and danita noted in the abdomen. No sizable pneumothorax. Heart size limited in assessment. IMPRESSION: 1. Diffuse bilateral airspace disease. Differential includes pleural effusion with consolidation vers us pulmonary edema.
[2017-03-31 08:39] LABS: Glucose,Whole Blood 152 mg/dL (75-99)
[2017-03-31] MEDS: FLUCONAZOLE IN NACL,ISO-OSM 100 MG in SALINE 1 50ML.BAG IVPB SCH (08:51)
[2017-03-31] MEDS: PANTOPRAZOLE 40 MG/10 ML VIAL IV SCH ×2 (08:51→20:56)
--- NOTE | 2017-03-31 09:39 | P.PN ---
Subjective Patient is seen in follow-up for acute renal failure and metabolic acidosis. Renal function is gradually worsening with creatinine at 4 today. Patient is maintained on TPN. He is also now on nectar thick diet. He was extubated . Patient presented with a perforated peptic ulcer and underwent exploratory laparotomy and open cholecystectomy this admission. Maintained on Lasix 40 mg IV once daily. He is nonoliguric. Patient does have underlying chronic kidney disease with creatinine in the range of 2.4-2.5 in July 2016. Off pressors. States he feels well. Vital signs are stable. General: Now extubated. HEENT: Head exam is unremarkable. Neck is without jugular venous distension. LUNGS: Scattered rhonchi. Breath sounds decreased. HEART: Rate and Rhythm are regular. First and second heart sounds normal. No murmurs, rubs or gallops. ABDOMEN: Bowel sounds present. EXTREMITITES: Trace edema. Left BKA noted. Objective - Vital Signs Vital signs: Vital Signs Temp 98.5 F 03/31/17 08:00 Pulse 106 H 03/31/17 08:00 Resp 17 03/31/17 08:00 BP 135/75 03/31/17 08:00 Pulse Ox 97 03/31/17 08:00 Intake & Output 03/30/17 03/31/17 03/31/17 18:59 06:59 18:59 Intake Total 956.062 299.479 41.247 Output Total 1655 2005 1280 Balance -698.938 -1705.521 -1238.753 Weight 89.8 kg 91.9 kg 93.3 kg Intake: IV 380 250.0 40 0.9 at 20 ml/hr 230 200 40 Fluconazole in NaCl Iso- 50 Osm 100mg in Saline 1 50ml.bag @50mls/hr IVPB Daily Piperacillin-Tazobactam 3 100 50.0 .375 gm In Dextrose/Water 1 50ml.bag @ 12.5 mls/hr IVPB Q8HR XENA Rx#: [id number] Intake, IV Titration 256.062 49.479 1.247 Amount Insulin Regular 100 unit 6.062 49.479 1.247 In Sodium Chloride 0.9% 100 ml @ Per Protocol IV .Q0M XENA Rx#:[id number] Vancomycin 1,500 mg In 250 Dextrose 5% in Water 250 ml @ 125 mls/hr IVPB ONCE ONE Rx#:[id number] Oral 320 Output: Drainage 30 10 Right Lower Abdomen 30 10 Urine 1125 895 180 Stool 500 1100 1100 Other: Voiding Method Indwelling Catheter Indwelling Catheter Indwelling Catheter # Bowel Movements 1 ABP, PAP, CO, CI - Last Documented Arterial Blood Pressure 146/54 - Labs CBC & Chem 7: 03/31/17 04:12 03/31/17 04:12 Labs: Abnormal Lab Results - Last 24 Hours (Table) 03/30/17 03/30/17 03/30/17 Range/Units 10:20 11:47 13:29 WBC (3.8-10.6) k/uL RBC (4.30-5.90) m/uL Hgb (13.0-17.5) gm/dL Hct (39.0-53.0) % MCHC (31.0-37.0) g/dL Plt Count (150-450) k/uL Neutrophils # (1.3-7.7) k/uL Sodium (137-145) mmol/L Chloride (98-107) mmol/L Carbon Dioxide (22-30) mmol/L BUN (9-20) mg/dL Creatinine (0.66-1.25) mg/dL Glucose (74-99) mg/dL POC Glucose (mg/dL) 215 H 210 H 171 H (75-99) mg/dL Calcium (8.4-10.2) mg/dL Phosphorus (2.5-4.5) mg/dL Magnesium (1.6-2.3) mg/dL 03/30/17 03/30/17 03/30/17 Range/Units 14:44 17:58 18:42 WBC (3.8-10.6) k/uL RBC (4.30-5.90) m/uL Hgb (13.0-17.5) gm/dL Hct (39.0-53.0) % MCHC (31.0-37.0) g/dL Plt Count (150-450) k/uL Neutrophils # (1.3-7.7) k/uL Sodium (137-145) mmol/L Chloride (98-107) mmol/L Carbon Dioxide (22-30) mmol/L BUN (9-20) mg/dL Creatinine (0.66-1.25) mg/dL Glucose (74-99) mg/dL POC Glucose (mg/dL) 139 H 149 H 188 H (75-99) mg/dL Calcium (8.4-10.2) mg/dL Phosphorus (2.5-4.5) mg/dL Magnesium (1.6-2.3) mg/dL 03/30/17 03/30/17 03/30/17 Range/Units 19:47 21:04 22:01 WBC (3.8-10.6) k/uL RBC (4.30-5.90) m/uL Hgb (13.0-17.5) gm/dL Hct (39.0-53.0) % MCHC (31.0-37.0) g/dL Plt Count (150-450) k/uL Neutrophils # (1.3-7.7) k/uL Sodium (137-145) mmol/L Chloride (98-107) mmol/L Carbon Dioxide (22-30) mmol/L BUN (9-20) mg/dL Creatinine (0.66-1.25) mg/dL Glucose (74-99) mg/dL POC Glucose (mg/dL) 188 H 210 H 193 H (75-99) mg/dL Calcium (8.4-10.2) mg/dL Phosphorus (2.5-4.5) mg/dL Magnesium (1.6-2.3) mg/dL 03/30/17 03/31/17 03/31/17 Range/Units 22:59 00:17 01:04 WBC (3.8-10.6) k/uL RBC (4.30-5.90) m/uL Hgb (13.0-17.5) gm/dL Hct (39.0-53.0) % MCHC (31.0-37.0) g/dL Plt Count (150-450) k/uL Neutrophils # (1.3-7.7) k/uL Sodium (137-145) mmol/L Chloride (98-107) mmol/L Carbon Dioxide (22-30) mmol/L BUN (9-20) mg/dL Creatinine (0.66-1.25) mg/dL Glucose (74-99) mg/dL POC Glucose (mg/dL) 179 H 149 H 123 H (75-99) mg/dL Calcium (8.4-10.2) mg/dL Phosphorus (2.5-4.5) mg/dL Magnesium (1.6-2.3) mg/dL 03/31/17 03/31/17 03/31/17 Range/Units 02:03 03:00 04:09 WBC (3.8-10.6) k/uL RBC (4.30-5.90) m/uL Hgb (13.0-17.5) gm/dL Hct (39.0-53.0) % MCHC (31.0-37.0) g/dL Plt Count (150-450) k/uL Neutrophils # (1.3-7.7) k/uL Sodium (137-145) mmol/L Chloride (98-107) mmol/L Carbon Dioxide (22-30) mmol/L BUN (9-20) mg/dL Creatinine (0.66-1.25) mg/dL Glucose (74-99) mg/dL POC Glucose (mg/dL) 104 H 111 H 111 H (75-99) mg/dL Calcium (8.4-10.2) mg/dL Phosphorus (2.5-4.5) mg/dL Magnesium (1.6-2.3) mg/dL 03/31/17 03/31/17 03/31/17 Range/Units 04:12 04:12 05:10 WBC 13.2 H (3.8-10.6) k/uL RBC 2.67 L (4.30-5.90) m/uL Hgb 7.5 L (13.0-17.5) gm/dL Hct 25.0 L (39.0-53.0) % MCHC 30.1 L (31.0-37.0) g/dL Plt Count 461 H (150-450) k/uL Neutrophils # 10.3 H (1.3-7.7) k/uL Sodium 149 H (137-145) mmol/L Chloride 116 H (98-107) mmol/L Carbon Dioxide 18 L (22-30) mmol/L BUN 105 H* (9-20) mg/dL Creatinine 4.00 H (0.66-1.25) mg/dL Glucose 113 H (74-99) mg/dL POC Glucose (mg/dL) 130 H (75-99) mg/dL Calcium 7.9 L (8.4-10.2) mg/dL Phosphorus 5.2 H (2.5-4.5) mg/dL Magnesium 2.4 H (1.6-2.3) mg/dL 03/31/17 03/31/17 03/31/17 Range/Units 06:17 06:59 08:38 WBC (3.8-10.6) k/uL RBC (4.30-5.90) m/uL Hgb (13.0-17.5) gm/dL Hct (39.0-53.0) % MCHC (31.0-37.0) g/dL Plt Count (150-450) k/uL Neutrophils # (1.3-7.7) k/uL Sodium (137-145) mmol/L Chloride (98-107) mmol/L Carbon Dioxide (22-30) mmol/L BUN (9-20) mg/dL Creatinine (0.66-1.25) mg/dL Glucose (74-99) mg/dL POC Glucose (mg/dL) 150 H 157 H 152 H (75-99) mg/dL Calcium (8.4-10.2) mg/dL Phosphorus (2.5-4.5) mg/dL Magnesium (1.6-2.3) mg/dL Assessment and Plan Plan: Assessment: #1. Nonoliguric acute kidney injury secondary to ischemic ATN secondary to hypotension and sepsis. Renal function gradually worsening with creatinine up to 4.0 today, which is likely from diuresis and poor oral intake. Also concern for ALLERGIC interstitial nephritis. Vancomycin has now been discontinued. #2. Perforated peptic ulcer status post exploratory laparotomy and open cholecystectomy on March 16. Upper GI study benign from 03/26. #3. Metabolic acidosis with respiratory compensation secondary to acute kidney injury. #4. Hypotension secondary to sepsis. Off vasopressors. #5. Anemia of chronic kidney disease. Status post blood transfusion this admission. Hemoglobin 7.5 today. #6. Sepsis secondary to perforated ulcer and gangrenous cholecystitis. Sputum culture positive for MRSA. #7. 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 Etiology is likely diabetic kidney disease. #8. Hypernatremia secondary to diuresis and lack of oral water intake. #9. Hypokalemia secondary to poor nutritional status and renal potassium wasting. Magnesium replete. Improved. Plan: Start oral sodium bicarbonate 1300 mg twice daily. Encourage oral intake. Start D5W to be run at 50 mL an hour. Hold Lasix. Check urine eosinophils. Antibiotics per infectious disease recommendations - now off vancomycin. Avoid nephrotoxic agents and hypotensive episodes. No urgent need for renal replacement therapy at this time. Maintain Aranesp.
--- NOTE | 2017-03-31 09:57 | P.PN ---
Subjective Progress note dated 03/31/2017 This is a 66-year-old male who was admitted way back on March 16. He initially came in with abdominal discomfort and had an open cholecystectomy expiratory laparotomy and repair of gastric ulcer. The patient has been here for quite some time. He's been here in the hospital for 15 days. Currently on 2 L nasal cannula. He is also sometimes on room air. Doesn't really need the oxygen. Also on IV at KVO. Insulin drip at 6 units per hour. Can be switched to NovoLog sliding scale. The patient down could be transferred transferred down to the general medical floor. We are going to DC the patient's insulin drip and put the patient on NovoLog sliding scale before meals and at bedtime. The patient's mostly not wearing oxygen therapy. Chest x-ray does show evidence of bilateral infiltrates consistent with fluid overload. Objective - Vital Signs Vital signs: Vital Signs Temp 98.5 F 03/31/17 08:00 Pulse 106 H 03/31/17 08:00 Resp 17 03/31/17 08:00 BP 135/75 03/31/17 08:00 Pulse Ox 97 03/31/17 08:00 Intake & Output 03/30/17 03/31/17 03/31/17 18:59 06:59 18:59 Intake Total 956.062 299.479 41.247 Output Total 1655 2005 1280 Balance -698.938 -1705.521 -1238.753 Weight 89.8 kg 91.9 kg 93.3 kg Intake: IV 380 250.0 40 0.9 at 20 ml/hr 230 200 40 Fluconazole in NaCl Iso- 50 Osm 100mg in Saline 1 50ml.bag @50mls/hr IVPB Daily Piperacillin-Tazobactam 3 100 50.0 .375 gm In Dextrose/Water 1 50ml.bag @ 12.5 mls/hr IVPB Q8HR XENA Rx#: [id number] Intake, IV Titration 256.062 49.479 1.247 Amount Insulin Regular 100 unit 6.062 49.479 1.247 In Sodium Chloride 0.9% 100 ml @ Per Protocol IV .Q0M XENA Rx#:[id number] Vancomycin 1,500 mg In 250 Dextrose 5% in Water 250 ml @ 125 mls/hr IVPB ONCE ONE Rx#:[id number] Oral 320 Output: Drainage 30 10 Right Lower Abdomen 30 10 Urine 1125 895 180 Stool 500 1100 1100 Other: Voiding Method Indwelling Catheter Indwelling Catheter Indwelling Catheter # Bowel Movements 1 ABP, PAP, CO, CI - Last Documented Arterial Blood Pressure 146/54 - Exam No acute distress, oriented 3. HEENT examination is grossly unremarkable. Mucous membranes are moist. Neck supple. Full range of motion. No adenopathy or thyromegaly. Cardiovascular examination reveals regular rhythm rate. No S3-S4. No murmur. Lungs reveal few scattered rhonchi. Some mild bibasilar crackles. Abdomen soft bowel sounds are heard. Extremities reveal some edema. 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 Skin without rash. Neurologic examinations nonfocal. The patient is weak in all 4 extremities. - Labs CBC & Chem 7: 03/31/17 04:12 03/31/17 04:12 Labs: Abnormal Lab Results - Last 24 Hours (Table) 03/30/17 03/30/17 03/30/17 Range/Units 10:20 11:47 13:29 WBC (3.8-10.6) k/uL RBC (4.30-5.90) m/uL Hgb (13.0-17.5) gm/dL Hct (39.0-53.0) % MCHC (31.0-37.0) g/dL Plt Count (150-450) k/uL Neutrophils # (1.3-7.7) k/uL Sodium (137-145) mmol/L Chloride (98-107) mmol/L Carbon Dioxide (22-30) mmol/L BUN (9-20) mg/dL Creatinine (0.66-1.25) mg/dL Glucose (74-99) mg/dL POC Glucose (mg/dL) 215 H 210 H 171 H (75-99) mg/dL Calcium (8.4-10.2) mg/dL Phosphorus (2.5-4.5) mg/dL Magnesium (1.6-2.3) mg/dL 03/30/17 03/30/17 03/30/17 Range/Units 14:44 17:58 18:42 WBC (3.8-10.6) k/uL RBC (4.30-5.90) m/uL Hgb (13.0-17.5) gm/dL Hct (39.0-53.0) % MCHC (31.0-37.0) g/dL Plt Count (150-450) k/uL Neutrophils # (1.3-7.7) k/uL Sodium (137-145) mmol/L Chloride (98-107) mmol/L Carbon Dioxide (22-30) mmol/L BUN (9-20) mg/dL Creatinine (0.66-1.25) mg/dL Glucose (74-99) mg/dL POC Glucose (mg/dL) 139 H 149 H 188 H (75-99) mg/dL Calcium (8.4-10.2) mg/dL Phosphorus (2.5-4.5) mg/dL Magnesium (1.6-2.3) mg/dL 03/30/17 03/30/17 03/30/17 Range/Units 19:47 21:04 22:01 WBC (3.8-10.6) k/uL RBC (4.30-5.90) m/uL Hgb (13.0-17.5) gm/dL Hct (39.0-53.0) % MCHC (31.0-37.0) g/dL Plt Count (150-450) k/uL Neutrophils # (1.3-7.7) k/uL Sodium (137-145) mmol/L Chloride (98-107) mmol/L Carbon Dioxide (22-30) mmol/L BUN (9-20) mg/dL Creatinine (0.66-1.25) mg/dL Glucose (74-99) mg/dL POC Glucose (mg/dL) 188 H 210 H 193 H (75-99) mg/dL Calcium (8.4-10.2) mg/dL Phosphorus (2.5-4.5) mg/dL Magnesium (1.6-2.3) mg/dL 03/30/17 03/31/17 03/31/17 Range/Units 22:59 00:17 01:04 WBC (3.8-10.6) k/uL RBC (4.30-5.90) m/uL Hgb (13.0-17.5) gm/dL Hct (39.0-53.0) % MCHC (31.0-37.0) g/dL Plt Count (150-450) k/uL Neutrophils # (1.3-7.7) k/uL Sodium (137-145) mmol/L Chloride (98-107) mmol/L Carbon Dioxide (22-30) mmol/L BUN (9-20) mg/dL Creatinine (0.66-1.25) mg/dL Glucose (74-99) mg/dL POC Glucose (mg/dL) 179 H 149 H 123 H (75-99) mg/dL Calcium (8.4-10.2) mg/dL Phosphorus (2.5-4.5) mg/dL Magnesium (1.6-2.3) mg/dL 03/31/17 03/31/17 03/31/17 Range/Units 02:03 03:00 04:09 WBC (3.8-10.6) k/uL RBC (4.30-5.90) m/uL Hgb (13.0-17.5) gm/dL Hct (39.0-53.0) % MCHC (31.0-37.0) g/dL Plt Count (150-450) k/uL Neutrophils # (1.3-7.7) k/uL Sodium (137-145) mmol/L Chloride (98-107) mmol/L Carbon Dioxide (22-30) mmol/L BUN (9-20) mg/dL Creatinine (0.66-1.25) mg/dL Glucose (74-99) mg/dL POC Glucose (mg/dL) 104 H 111 H 111 H (75-99) mg/dL Calcium (8.4-10.2) mg/dL Phosphorus (2.5-4.5) mg/dL Magnesium (1.6-2.3) mg/dL 03/31/17 03/31/17 03/31/17 Range/Units 04:12 04:12 05:10 WBC 13.2 H (3.8-10.6) k/uL RBC 2.67 L (4.30-5.90) m/uL Hgb 7.5 L (13.0-17.5) gm/dL Hct 25.0 L (39.0-53.0) % MCHC 30.1 L (31.0-37.0) g/dL Plt Count 461 H (150-450) k/uL Neutrophils # 10.3 H (1.3-7.7) k/uL Sodium 149 H (137-145) mmol/L Chloride 116 H (98-107) mmol/L Carbon Dioxide 18 L (22-30) mmol/L BUN 105 H* (9-20) mg/dL Creatinine 4.00 H (0.66-1.25) mg/dL Glucose 113 H (74-99) mg/dL POC Glucose (mg/dL) 130 H (75-99) mg/dL Calcium 7.9 L (8.4-10.2) mg/dL Phosphorus 5.2 H (2.5-4.5) mg/dL Magnesium 2.4 H (1.6-2.3) mg/dL 03/31/17 03/31/17 03/31/17 Range/Units 06:17 06:59 08:38 WBC (3.8-10.6) k/uL RBC (4.30-5.90) m/uL Hgb (13.0-17.5) gm/dL Hct (39.0-53.0) % MCHC (31.0-37.0) g/dL Plt Count (150-450) k/uL Neutrophils # (1.3-7.7) k/uL Sodium (137-145) mmol/L Chloride (98-107) mmol/L Carbon Dioxide (22-30) mmol/L BUN (9-20) mg/dL Creatinine (0.66-1.25) mg/dL Glucose (74-99) mg/dL POC Glucose (mg/dL) 150 H 157 H 152 H (75-99) mg/dL Calcium (8.4-10.2) mg/dL Phosphorus (2.5-4.5) mg/dL Magnesium (1.6-2.3) mg/dL Assessment and Plan (1) Acute abdomen Status: Acute (2) History of exploratory laparotomy Status: Acute (3) Perforated peptic ulcer Status: Acute (4) Acute renal failure Status: Acute (5) Cholecystitis Status: Acute (6) Dehydration Status: Acute (7) Free intraperitoneal air Status: Acute (8) Gastric perforation Status: Acute (9) Septic shock Status: Acute (10) Anemia Status: Acute (11) COPD (chronic obstructive pulmonary disease) Status: Acute (12) Cellulitis of both feet Status: Acute (13) Diabetes Status: Acute (14) Hypothyroidism Status: Acute (15) Necrotizing soft tissue infection Status: Acute (16) Nicotine dependence Status: Acute (17) Systolic CHF, acute on chronic Status: Acute Plan: Plan dated 03/31/2017 We'll continue with supportive measures. We'll continue antibiotics. The patient may benefit some additional diuretics but will allow nephrology to decide about that. The patient's overall situation is still critical. Doing better today though. Insulin drip can be turned off in favor of NovoLog sliding scale before meals and at bedtime. The patient is not receiving any IV fluids. Mostly not on any oxygen. We'll encourage deep breathing coughing and clearing secretions as well as using the incentive spirometer. Does need some physical therapy and rehab. Probably be transferred to some sort of [place] [facility] facility eventually leaves the hospital. Diagnosis is guarded. Time with Patient: Greater than 30
[2017-03-31 11:06] LABS: Amorphous Sediment,Urine Rare /hpf; Appearance,Urine Turbid (Clear); Bilirubin,Urine Negative (Negative); Glucose,Urine (UA) Negative (Negative); Granular Casts,Urine 2 /lpf (0); Ketones,Urine Negative (Negative); Leukocyte Esterase,Urine Small (Negative); Mucus,Urine Rare /hpf; Nitrite,Urine Negative (Negative); Particle Count 14364; Protein,Urine 1+ (Negative); RBC,Urine 4 /hpf (0-5); Specific Gravity,Urine 1.015 (1.001-1.035); UA Billing (MACRO vs. MICRO) MICRO; Urobilinogen,Urine <2.0 mg/dL (<2.0); WBC,Urine 9 /hpf (0-5)
[2017-03-31] MEDS: HYDROmorphone 1 MG/ML 1 ML SYRINGE IVP PRN ×2 (11:35→20:45)
[2017-03-31 12:06] LABS: Glucose,Whole Blood 195 mg/dL (75-99)
[2017-03-31] MEDS: INSULIN LISPRO (humaLOG) 300 UNIT/3 ML VIAL SQ SCH ×3 (12:06→20:32)
[2017-03-31] MEDS: FAT EMULSION 20% 250 ML in EMPTY BAG 1 BAG IV SCH (14:25)
--- NOTE | 2017-03-31 16:14 | P.PN ---
<Cynthia Roaclayton Cleveland - Last Filed: 03/31/17 16:08> Subjective 66-year-old being seen in the intensive care unit. Patient is awake no acute distress. The plan is to transfer the patient this afternoon to the surgical unit. Patient currently is on room air sats greater than 95%. TPN is being weaned and tapered off down to 50. Patient reportedly is tolerating a diet. Patient is postop open cholecystectomy laparotomy and repair of a gastric ulcer Objective - Vital Signs Vital signs: Vital Signs Temp 98.5 F 03/31/17 14:00 Pulse 98 03/31/17 15:44 Resp 18 03/31/17 14:00 BP 140/67 03/31/17 14:00 Pulse Ox 94 L 03/31/17 15:50 Intake & Output 03/30/17 03/31/17 03/31/17 18:59 06:59 18:59 Intake Total 956.062 299.479 781.247 Output Total 1655 2005 2850 Balance -698.938 -1705.521 -2068.753 Weight 89.8 kg 91.9 kg 93.3 kg Intake: IV 380 250.0 160 0.9 at 20 ml/hr 230 200 160 Fluconazole in NaCl Iso- 50 Osm 100mg in Saline 1 50ml.bag @50mls/hr IVPB Daily Piperacillin-Tazobactam 3 100 50.0 .375 gm In Dextrose/Water 1 50ml.bag @ 12.5 mls/hr IVPB Q8HR [facility] Rx#: [id number] Intake, IV Titration 256.062 49.479 1.247 Amount Insulin Regular 100 unit 6.062 49.479 1.247 In Sodium Chloride 0.9% 100 ml @ Per Protocol IV .Q0M [facility] Rx#:[id number] Vancomycin 1,500 mg In 250 Dextrose 5% in Water 250 ml @ 125 mls/hr IVPB ONCE ONE Rx#:[id number] Oral 320 620 Output: Drainage 30 10 Right Lower Abdomen 30 10 Urine 1125 895 650 Stool 500 1100 2200 Other: Voiding Method Indwelling Catheter Indwelling Catheter Indwelling Catheter # Bowel Movements 1 ABP, PAP, CO, CI - Last Documented Arterial Blood Pressure 146/54 - Exam Physical exam 66-year-old male resting in bed appears in no acute distress Lungs essentially clear adequate air movement on room air no cough heart S1-S2 audible regular denying chest pain Abdomen soft nontender dressing to surgical site dry fecal management system in place moderate liquid stool indwelling Castellanos catheter in place. Bowel tones present. Tolerating a full soft diet no reports of nausea no vomiting Extremities right BKA no pedal edema - Labs CBC & Chem 7: 03/31/17 04:12 03/31/17 04:12 Labs: Abnormal Lab Results - Last 24 Hours (Table) 03/30/17 03/30/17 03/30/17 Range/Units 17:58 18:42 19:47 WBC (3.8-10.6) k/uL RBC (4.30-5.90) m/uL Hgb (13.0-17.5) gm/dL Hct (39.0-53.0) % MCHC (31.0-37.0) g/dL Plt Count (150-450) k/uL Neutrophils # (1.3-7.7) k/uL Sodium (137-145) mmol/L Chloride (98-107) mmol/L Carbon Dioxide (22-30) mmol/L BUN (9-20) mg/dL Creatinine (0.66-1.25) mg/dL Glucose (74-99) mg/dL POC Glucose (mg/dL) 149 H 188 H 188 H (75-99) mg/dL Calcium (8.4-10.2) mg/dL Phosphorus (2.5-4.5) mg/dL Magnesium (1.6-2.3) mg/dL Urine Protein (Negative) Urine Blood (Negative) Ur Leukocyte Esterase (Negative) Urine WBC (0-5) /hpf Amorphous Sediment (None) /hpf Hyaline Casts (0-2) /lpf Urine Mucus (None) /hpf 03/30/17 03/30/17 03/30/17 Range/Units 21:04 22:01 22:59 WBC (3.8-10.6) k/uL RBC (4.30-5.90) m/uL Hgb (13.0-17.5) gm/dL Hct (39.0-53.0) % MCHC (31.0-37.0) g/dL Plt Count (150-450) k/uL Neutrophils # (1.3-7.7) k/uL Sodium (137-145) mmol/L Chloride (98-107) mmol/L Carbon Dioxide (22-30) mmol/L BUN (9-20) mg/dL Creatinine (0.66-1.25) mg/dL Glucose (74-99) mg/dL POC Glucose (mg/dL) 210 H 193 H 179 H (75-99) mg/dL Calcium (8.4-10.2) mg/dL Phosphorus (2.5-4.5) mg/dL Magnesium (1.6-2.3) mg/dL Urine Protein (Negative) Urine Blood (Negative) Ur Leukocyte Esterase (Negative) Urine WBC (0-5) /hpf Amorphous Sediment (None) /hpf Hyaline Casts (0-2) /lpf Urine Mucus (None) /hpf 03/31/17 03/31/17 03/31/17 Range/Units 00:17 01:04 02:03 WBC (3.8-10.6) k/uL RBC (4.30-5.90) m/uL Hgb (13.0-17.5) gm/dL Hct (39.0-53.0) % MCHC (31.0-37.0) g/dL Plt Count (150-450) k/uL Neutrophils # (1.3-7.7) k/uL Sodium (137-145) mmol/L Chloride (98-107) mmol/L Carbon Dioxide (22-30) mmol/L BUN (9-20) mg/dL Creatinine (0.66-1.25) mg/dL Glucose (74-99) mg/dL POC Glucose (mg/dL) 149 H 123 H 104 H (75-99) mg/dL Calcium (8.4-10.2) mg/dL Phosphorus (2.5-4.5) mg/dL Magnesium (1.6-2.3) mg/dL Urine Protein (Negative) Urine Blood (Negative) Ur Leukocyte Esterase (Negative) Urine WBC (0-5) /hpf Amorphous Sediment (None) /hpf Hyaline Casts (0-2) /lpf Urine Mucus (None) /hpf 03/31/17 03/31/17 03/31/17 Range/Units 03:00 04:09 04:12 WBC 13.2 H (3.8-10.6) k/uL RBC 2.67 L (4.30-5.90) m/uL Hgb 7.5 L (13.0-17.5) gm/dL Hct 25.0 L (39.0-53.0) % MCHC 30.1 L (31.0-37.0) g/dL Plt Count 461 H (150-450) k/uL Neutrophils # 10.3 H (1.3-7.7) k/uL Sodium (137-145) mmol/L Chloride (98-107) mmol/L Carbon Dioxide (22-30) mmol/L BUN (9-20) mg/dL Creatinine (0.66-1.25) mg/dL Glucose (74-99) mg/dL POC Glucose (mg/dL) 111 H 111 H (75-99) mg/dL Calcium (8.4-10.2) mg/dL Phosphorus (2.5-4.5) mg/dL Magnesium (1.6-2.3) mg/dL Urine Protein (Negative) Urine Blood (Negative) Ur Leukocyte Esterase (Negative) Urine WBC (0-5) /hpf Amorphous Sediment (None) /hpf Hyaline Casts (0-2) /lpf Urine Mucus (None) /hpf 03/31/17 03/31/17 03/31/17 Range/Units 04:12 05:10 06:17 WBC (3.8-10.6) k/uL RBC (4.30-5.90) m/uL Hgb (13.0-17.5) gm/dL Hct (39.0-53.0) % MCHC (31.0-37.0) g/dL Plt Count (150-450) k/uL Neutrophils # (1.3-7.7) k/uL Sodium 149 H (137-145) mmol/L Chloride 116 H (98-107) mmol/L Carbon Dioxide 18 L (22-30) mmol/L BUN 105 H* (9-20) mg/dL Creatinine 4.00 H (0.66-1.25) mg/dL Glucose 113 H (74-99) mg/dL POC Glucose (mg/dL) 130 H 150 H (75-99) mg/dL Calcium 7.9 L (8.4-10.2) mg/dL Phosphorus 5.2 H (2.5-4.5) mg/dL Magnesium 2.4 H (1.6-2.3) mg/dL Urine Protein (Negative) Urine Blood (Negative) Ur Leukocyte Esterase (Negative) Urine WBC (0-5) /hpf Amorphous Sediment (None) /hpf Hyaline Casts (0-2) /lpf Urine Mucus (None) /hpf 03/31/17 03/31/17 03/31/17 Range/Units 06:59 08:38 10:20 WBC (3.8-10.6) k/uL RBC (4.30-5.90) m/uL Hgb (13.0-17.5) gm/dL Hct (39.0-53.0) % MCHC (31.0-37.0) g/dL Plt Count (150-450) k/uL Neutrophils # (1.3-7.7) k/uL Sodium (137-145) mmol/L Chloride (98-107) mmol/L Carbon Dioxide (22-30) mmol/L BUN (9-20) mg/dL Creatinine (0.66-1.25) mg/dL Glucose (74-99) mg/dL POC Glucose (mg/dL) 157 H 152 H (75-99) mg/dL Calcium (8.4-10.2) mg/dL Phosphorus (2.5-4.5) mg/dL Magnesium (1.6-2.3) mg/dL Urine Protein 1+ H (Negative) Urine Blood Small H (Negative) Ur Leukocyte Esterase Small H (Negative) Urine WBC 9 H (0-5) /hpf Amorphous Sediment Rare H (None) /hpf Hyaline Casts 12 H (0-2) /lpf Urine Mucus Rare H (None) /hpf 03/31/17 Range/Units 12:05 WBC (3.8-10.6) k/uL RBC (4.30-5.90) m/uL Hgb (13.0-17.5) gm/dL Hct (39.0-53.0) % MCHC (31.0-37.0) g/dL Plt Count (150-450) k/uL Neutrophils # (1.3-7.7) k/uL Sodium (137-145) mmol/L Chloride (98-107) mmol/L Carbon Dioxide (22-30) mmol/L BUN (9-20) mg/dL Creatinine (0.66-1.25) mg/dL Glucose (74-99) mg/dL POC Glucose (mg/dL) 195 H (75-99) mg/dL Calcium (8.4-10.2) mg/dL Phosphorus (2.5-4.5) mg/dL Magnesium (1.6-2.3) mg/dL Urine Protein (Negative) Urine Blood (Negative) Ur Leukocyte Esterase (Negative) Urine WBC (0-5) /hpf Amorphous Sediment (None) /hpf Hyaline Casts (0-2) /lpf Urine Mucus (None) /hpf Assessment and Plan Plan: Impression Assessment and Plan (1) Acute abdomen Status: Acute (2) History of exploratory laparotomy Status: Acute (3) Perforated peptic ulcer Status: Acute (4) Acute renal failure Status: Acute (5) Cholecystitis Status: Acute (6) Dehydration Status: Acute (7) Free intraperitoneal air Status: Acute (8) Gastric perforation Status: Acute (9) Septic shock Status: Acute (10) Anemia Status: Acute (11) COPD (chronic obstructive pulmonary disease) Status: Acute (12) Cellulitis of both feet Status: Acute (13) Diabetes Status: Acute (14) Hypothyroidism Status: Acute (15) Necrotizing soft tissue infection Status: Acute (16) Nicotine dependence Status: Acute (17) Systolic CHF, acute on chronic Status: Acute Plan: Plan dated 03/31/2017 The above impression and plan of care have been discussed and directed by signing physician. Pennie Roa nurse practitioner acting as scribe for signing physician. <Epifanio Wiley - Last Filed: 03/31/17 18:32> Objective - Vital Signs Vital signs: Vital Signs Temp 98.2 F 03/31/17 17:00 Pulse 113 H 03/31/17 18:00 Resp 24 03/31/17 18:00 BP 125/70 03/31/17 18:00 Pulse Ox 93 L 03/31/17 18:00 Intake & Output 03/30/17 03/31/17 03/31/17 18:59 06:59 18:59 Intake Total 956.062 472.850 6962.247 Output Total 1655 2005 3065 Balance -698.938 -1705.521 -1983.753 Weight 89.8 kg 91.9 kg 93.3 kg Intake: IV 380 250.0 240 0.9 at 20 ml/hr 230 200 240 Fluconazole in NaCl Iso- 50 Osm 100mg in Saline 1 50ml.bag @50mls/hr IVPB Daily Piperacillin-Tazobactam 3 100 50.0 .375 gm In Dextrose/Water 1 50ml.bag @ 12.5 mls/hr IVPB Q8HR [facility] Rx#: [id number] Intake, IV Titration 256.062 49.479 1.247 Amount Insulin Regular 100 unit 6.062 49.479 1.247 In Sodium Chloride 0.9% 100 ml @ Per Protocol IV .Q0M [facility] Rx#:[id number] Vancomycin 1,500 mg In 250 Dextrose 5% in Water 250 ml @ 125 mls/hr IVPB ONCE ONE Rx#:[id number] Oral 320 840 Output: Drainage 30 10 15 Right Lower Abdomen 30 10 15 Urine 1125 895 850 Stool 500 1100 2200 Other: Voiding Method Indwelling Catheter Indwelling Catheter Indwelling Catheter # Bowel Movements 1 ABP, PAP, CO, CI - Last Documented Arterial Blood Pressure 146/54 - Labs CBC & Chem 7: 03/31/17 04:12 03/31/17 04:12 Labs: Abnormal Lab Results - Last 24 Hours (Table) 03/30/17 03/30/17 03/30/17 Range/Units 18:42 19:47 21:04 WBC (3.8-10.6) k/uL RBC (4.30-5.90) m/uL Hgb (13.0-17.5) gm/dL Hct (39.0-53.0) % MCHC (31.0-37.0) g/dL Plt Count (150-450) k/uL Neutrophils # (1.3-7.7) k/uL Sodium (137-145) mmol/L Chloride (98-107) mmol/L Carbon Dioxide (22-30) mmol/L BUN (9-20) mg/dL Creatinine (0.66-1.25) mg/dL Glucose (74-99) mg/dL POC Glucose (mg/dL) 188 H 188 H 210 H (75-99) mg/dL Calcium (8.4-10.2) mg/dL Phosphorus (2.5-4.5) mg/dL Magnesium (1.6-2.3) mg/dL Urine Protein (Negative) Urine Blood (Negative) Ur Leukocyte Esterase (Negative) Urine WBC (0-5) /hpf Amorphous Sediment (None) /hpf Hyaline Casts (0-2) /lpf Urine Mucus (None) /hpf 03/30/17 03/30/17 03/31/17 Range/Units 22:01 22:59 00:17 WBC (3.8-10.6) k/uL RBC (4.30-5.90) m/uL Hgb (13.0-17.5) gm/dL Hct (39.0-53.0) % MCHC (31.0-37.0) g/dL Plt Count (150-450) k/uL Neutrophils # (1.3-7.7) k/uL Sodium (137-145) mmol/L Chloride (98-107) mmol/L Carbon Dioxide (22-30) mmol/L BUN (9-20) mg/dL Creatinine (0.66-1.25) mg/dL Glucose (74-99) mg/dL POC Glucose (mg/dL) 193 H 179 H 149 H (75-99) mg/dL Calcium (8.4-10.2) mg/dL Phosphorus (2.5-4.5) mg/dL Magnesium (1.6-2.3) mg/dL Urine Protein (Negative) Urine Blood (Negative) Ur Leukocyte Esterase (Negative) Urine WBC (0-5) /hpf Amorphous Sediment (None) /hpf Hyaline Casts (0-2) /lpf Urine Mucus (None) /hpf 03/31/17 03/31/17 03/31/17 Range/Units 01:04 02:03 03:00 WBC (3.8-10.6) k/uL RBC (4.30-5.90) m/uL Hgb (13.0-17.5) gm/dL Hct (39.0-53.0) % MCHC (31.0-37.0) g/dL Plt Count (150-450) k/uL Neutrophils # (1.3-7.7) k/uL Sodium (137-145) mmol/L Chloride (98-107) mmol/L Carbon Dioxide (22-30) mmol/L BUN (9-20) mg/dL Creatinine (0.66-1.25) mg/dL Glucose (74-99) mg/dL POC Glucose (mg/dL) 123 H 104 H 111 H (75-99) mg/dL Calcium (8.4-10.2) mg/dL Phosphorus (2.5-4.5) mg/dL Magnesium (1.6-2.3) mg/dL Urine Protein (Negative) Urine Blood (Negative) Ur Leukocyte Esterase (Negative) Urine WBC (0-5) /hpf Amorphous Sediment (None) /hpf Hyaline Casts (0-2) /lpf Urine Mucus (None) /hpf 03/31/17 03/31/17 03/31/17 Range/Units 04:09 04:12 04:12 WBC 13.2 H (3.8-10.6) k/uL RBC 2.67 L (4.30-5.90) m/uL Hgb 7.5 L (13.0-17.5) gm/dL Hct 25.0 L (39.0-53.0) % MCHC 30.1 L (31.0-37.0) g/dL Plt Count 461 H (150-450) k/uL Neutrophils # 10.3 H (1.3-7.7) k/uL Sodium 149 H (137-145) mmol/L Chloride 116 H (98-107) mmol/L Carbon Dioxide 18 L (22-30) mmol/L BUN 105 H* (9-20) mg/dL Creatinine 4.00 H (0.66-1.25) mg/dL Glucose 113 H (74-99) mg/dL POC Glucose (mg/dL) 111 H (75-99) mg/dL Calcium 7.9 L (8.4-10.2) mg/dL Phosphorus 5.2 H (2.5-4.5) mg/dL Magnesium 2.4 H (1.6-2.3) mg/dL Urine Protein (Negative) Urine Blood (Negative) Ur Leukocyte Esterase (Negative) Urine WBC (0-5) /hpf Amorphous Sediment (None) /hpf Hyaline Casts (0-2) /lpf Urine Mucus (None) /hpf 03/31/17 03/31/17 03/31/17 Range/Units 05:10 06:17 06:59 WBC (3.8-10.6) k/uL RBC (4.30-5.90) m/uL Hgb (13.0-17.5) gm/dL Hct (39.0-53.0) % MCHC (31.0-37.0) g/dL Plt Count (150-450) k/uL Neutrophils # (1.3-7.7) k/uL Sodium (137-145) mmol/L Chloride (98-107) mmol/L Carbon Dioxide (22-30) mmol/L BUN (9-20) mg/dL Creatinine (0.66-1.25) mg/dL Glucose (74-99) mg/dL POC Glucose (mg/dL) 130 H 150 H 157 H (75-99) mg/dL Calcium (8.4-10.2) mg/dL Phosphorus (2.5-4.5) mg/dL Magnesium (1.6-2.3) mg/dL Urine Protein (Negative) Urine Blood (Negative) Ur Leukocyte Esterase (Negative) Urine WBC (0-5) /hpf Amorphous Sediment (None) /hpf Hyaline Casts (0-2) /lpf Urine Mucus (None) /hpf 03/31/17 03/31/17 03/31/17 Range/Units 08:38 10:20 12:05 WBC (3.8-10.6) k/uL RBC (4.30-5.90) m/uL Hgb (13.0-17.5) gm/dL Hct (39.0-53.0) % MCHC (31.0-37.0) g/dL Plt Count (150-450) k/uL Neutrophils # (1.3-7.7) k/uL Sodium (137-145) mmol/L Chloride (98-107) mmol/L Carbon Dioxide (22-30) mmol/L BUN (9-20) mg/dL Creatinine (0.66-1.25) mg/dL Glucose (74-99) mg/dL POC Glucose (mg/dL) 152 H 195 H (75-99) mg/dL Calcium (8.4-10.2) mg/dL Phosphorus (2.5-4.5) mg/dL Magnesium (1.6-2.3) mg/dL Urine Protein 1+ H (Negative) Urine Blood Small H (Negative) Ur Leukocyte Esterase Small H (Negative) Urine WBC 9 H (0-5) /hpf Amorphous Sediment Rare H (None) /hpf Hyaline Casts 12 H (0-2) /lpf Urine Mucus Rare H (None) /hpf 03/31/17 Range/Units 17:51 WBC (3.8-10.6) k/uL RBC (4.30-5.90) m/uL Hgb (13.0-17.5) gm/dL Hct (39.0-53.0) % MCHC (31.0-37.0) g/dL Plt Count (150-450) k/uL Neutrophils # (1.3-7.7) k/uL Sodium (137-145) mmol/L Chloride (98-107) mmol/L Carbon Dioxide (22-30) mmol/L BUN (9-20) mg/dL Creatinine (0.66-1.25) mg/dL Glucose (74-99) mg/dL POC Glucose (mg/dL) 218 H (75-99) mg/dL Calcium (8.4-10.2) mg/dL Phosphorus (2.5-4.5) mg/dL Magnesium (1.6-2.3) mg/dL Urine Protein (Negative) Urine Blood (Negative) Ur Leukocyte Esterase (Negative) Urine WBC (0-5) /hpf Amorphous Sediment (None) /hpf Hyaline Casts (0-2) /lpf Urine Mucus (None) /hpf Assessment and Plan (1) Free intraperitoneal air Status: Acute Plan: As above. Patient gradually improving. Denies abdominal pain. Tolerating diet thus far. LOUISA drain remains serous. We'll remove LOUISA drain at this point. We'll follow.
[2017-03-31 17:52] LABS: Glucose,Whole Blood 218 mg/dL (75-99)
[2017-03-31 20:32] LABS: Glucose,Whole Blood 230 mg/dL (75-99)
[2017-03-31] MEDS: DEXTROSE 5% IN WATER 1,000 ML IV SCH (20:47)
--- NOTE | 2017-03-31 22:40 | P.PN ---
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 [facility] most recently under the care of Dr. Gordon and discharged in August 2016 after a dehiscence of the right below the knee wound healed. Patient presented to [facility] emergency center on March 16 with generalized weakness and abdominal pain for at least couple days up to 1 week with concerns for constipation and was taking laxatives with no improvement. Patient also had decreased appetite and pain was gradually worsening. There was nausea without vomiting. Chest x-ray showed pneumoperitoneum and left basilar atelectasis with no heart failure. Abdominal films also showed pneumoperitoneum. CAT scan of the abdomen and pelvis without contrast and was found have a large pneumoperitoneum, large ascites, large nonobstructive right renal calculi and possible gallbladder thickening with concern for gangrenous gallbladder. Patient was taken to the OR by Dr. Wiley for exploratory laparotomy with repair of perforated peptic ulcer and open cholecystectomy. Patient was then transferred to the intensive care unit where he remains intubated and on mechanical ventilation. Patient presented with severe sepsis and septic shock status post 7 1/2 liters of fluid currently on levo at 20 mics. He did not have a urine output for the day shift thus far. O2 needs have decreased however. He is currently on IV antimicrobials in the form of fluconazole, Flagyl and Zosyn. Blood cultures status received and urine culture status received. C. difficile toxin was negative. Patient is noted to have a stage II decubitus ulcer on his buttocks that was present on admission. Today there has been improvement. He has now been extubated. Weaned vasopressor therapy. Responded to fluids. Urine output is improved. acute renal failure improving Patient is awake and comfortable. Objective - Vital Signs Vital signs: Vital Signs Temp 98.5 F 03/31/17 20:00 Pulse 104 H 03/31/17 22:00 Resp 20 03/31/17 22:00 BP 124/60 03/31/17 22:00 Pulse Ox 93 L 03/31/17 22:00 Intake & Output 03/31/17 03/31/17 04/01/17 06:59 18:59 06:59 Intake Total 402.765 3460.247 2418.333 Output Total 2004 3065 300 Balance -1705.521 -6558.782 4107.333 Weight 91.9 kg 93.3 kg Intake: IV 250.0 240 364 0.9 at 20 ml/hr 200 240 80 Fat Emulsion 20% 250 ml 84 In Empty Bag 1 bag @ 21 mls/hr IV DAILY@1400 XENA Rx#:[id number] Piperacillin-Tazobactam 3 50.0 .375 gm In Dextrose/Water 1 50ml.bag @ 12.5 mls/hr IVPB Q8HR XENA Rx#: [id number] Potassium Acetate 20 meq 200 Parenteral Electrolytes 20 ml In Amino Acid 5%- D15w 1,000 ml @ 50 mls/hr IV .BY DURATION XENA Rx#: [id number] Intake, IV Titration 49.479 1.247 2054.333 Amount Insulin Regular 100 unit 49.479 1.247 In Sodium Chloride 0.9% 100 ml @ Per Protocol IV .Q0M XENA Rx#:[id number] Mvi, Adult No.4 with Vit 1041 K 10 ml Trace (Conc-1Ml/ Dose) 1 ml Potassium Acetate 20 meq Parenteral Electrolytes 20 ml In Amino Acid 5%-D15w 1,000 ml @ 50 mls/hr IV .BY DURATION XENA Rx#: [id number] Potassium Acetate 20 meq 1013.333 Parenteral Electrolytes 20 ml In Amino Acid 5%- D15w 1,000 ml @ 50 mls/hr IV .BY DURATION XENA Rx#: [id number] Oral 840 Output: Drainage 10 15 Right Lower Abdomen 10 15 Urine 895 850 300 Stool 1100 2200 Other: Voiding Method Indwelling Catheter Indwelling Catheter Indwelling Catheter ABP, PAP, CO, CI - Last Documented Arterial Blood Pressure 146/54 - Exam Gen: This is an obese 66-year-old male. He is seen in the ICU, he has been extubated. Patient appears comfortable and in no acute distress. HEENT: Head is atraumatic, normocephalic. Oral ET and gastric tube in place. White coating noted on the tongue. Mucous membranes are slightly dry.. NECK: Supple. No JVD. No lymphadenopathy. Trachea midline. LUNGS: There is symmetrical air entry bilaterally. Coarse crackles are scattered the lung kraft. Subtly improved when he coughs. Scattered wheezes are also heard. HEART: Regular rate and rhythm. No murmur. Patient is tachycardic. ABDOMEN: Soft. Bowel sounds are not present. No masses. No tenderness. LOUSIA drain to the right upper abdomen is draining serosanguineous fluid. Dressing to the right upper quadrant and midline are in place with no breakthrough drainage or bleeding. Castellanos catheter in place draining clear pinky urine. EXTREMITIES: No pedal edema to the left lower extremity. Patient has amputations of toes 2 through 5 on the left and a right below the knee amputation. All extremities are cool to the touch. No mottling noted. NEUROLOGICAL: Patient no longer sedated. Eyes are open. Seems comfortable. Denied pain. - Labs CBC & Chem 7: 03/31/17 04:12 03/31/17 04:12 Labs: Abnormal Lab Results - Last 24 Hours (Table) 03/30/17 03/31/17 03/31/17 Range/Units 22:59 00:17 01:04 WBC (3.8-10.6) k/uL RBC (4.30-5.90) m/uL Hgb (13.0-17.5) gm/dL Hct (39.0-53.0) % MCHC (31.0-37.0) g/dL Plt Count (150-450) k/uL Neutrophils # (1.3-7.7) k/uL Sodium (137-145) mmol/L Chloride (98-107) mmol/L Carbon Dioxide (22-30) mmol/L BUN (9-20) mg/dL Creatinine (0.66-1.25) mg/dL Glucose (74-99) mg/dL POC Glucose (mg/dL) 179 H 149 H 123 H (75-99) mg/dL Calcium (8.4-10.2) mg/dL Phosphorus (2.5-4.5) mg/dL Magnesium (1.6-2.3) mg/dL Urine Protein (Negative) Urine Blood (Negative) Ur Leukocyte Esterase (Negative) Urine WBC (0-5) /hpf Amorphous Sediment (None) /hpf Hyaline Casts (0-2) /lpf Urine Mucus (None) /hpf 03/31/17 03/31/17 03/31/17 Range/Units 02:03 03:00 04:09 WBC (3.8-10.6) k/uL RBC (4.30-5.90) m/uL Hgb (13.0-17.5) gm/dL Hct (39.0-53.0) % MCHC (31.0-37.0) g/dL Plt Count (150-450) k/uL Neutrophils # (1.3-7.7) k/uL Sodium (137-145) mmol/L Chloride (98-107) mmol/L Carbon Dioxide (22-30) mmol/L BUN (9-20) mg/dL Creatinine (0.66-1.25) mg/dL Glucose (74-99) mg/dL POC Glucose (mg/dL) 104 H 111 H 111 H (75-99) mg/dL Calcium (8.4-10.2) mg/dL Phosphorus (2.5-4.5) mg/dL Magnesium (1.6-2.3) mg/dL Urine Protein (Negative) Urine Blood (Negative) Ur Leukocyte Esterase (Negative) Urine WBC (0-5) /hpf Amorphous Sediment (None) /hpf Hyaline Casts (0-2) /lpf Urine Mucus (None) /hpf 03/31/17 03/31/17 03/31/17 Range/Units 04:12 04:12 05:10 WBC 13.2 H (3.8-10.6) k/uL RBC 2.67 L (4.30-5.90) m/uL Hgb 7.5 L (13.0-17.5) gm/dL Hct 25.0 L (39.0-53.0) % MCHC 30.1 L (31.0-37.0) g/dL Plt Count 461 H (150-450) k/uL Neutrophils # 10.3 H (1.3-7.7) k/uL Sodium 149 H (137-145) mmol/L Chloride 116 H (98-107) mmol/L Carbon Dioxide 18 L (22-30) mmol/L BUN 105 H* (9-20) mg/dL Creatinine 4.00 H (0.66-1.25) mg/dL Glucose 113 H (74-99) mg/dL POC Glucose (mg/dL) 130 H (75-99) mg/dL Calcium 7.9 L (8.4-10.2) mg/dL Phosphorus 5.2 H (2.5-4.5) mg/dL Magnesium 2.4 H (1.6-2.3) mg/dL Urine Protein (Negative) Urine Blood (Negative) Ur Leukocyte Esterase (Negative) Urine WBC (0-5) /hpf Amorphous Sediment (None) /hpf Hyaline Casts (0-2) /lpf Urine Mucus (None) /hpf 03/31/17 03/31/17 03/31/17 Range/Units 06:17 06:59 08:38 WBC (3.8-10.6) k/uL RBC (4.30-5.90) m/uL Hgb (13.0-17.5) gm/dL Hct (39.0-53.0) % MCHC (31.0-37.0) g/dL Plt Count (150-450) k/uL Neutrophils # (1.3-7.7) k/uL Sodium (137-145) mmol/L Chloride (98-107) mmol/L Carbon Dioxide (22-30) mmol/L BUN (9-20) mg/dL Creatinine (0.66-1.25) mg/dL Glucose (74-99) mg/dL POC Glucose (mg/dL) 150 H 157 H 152 H (75-99) mg/dL Calcium (8.4-10.2) mg/dL Phosphorus (2.5-4.5) mg/dL Magnesium (1.6-2.3) mg/dL Urine Protein (Negative) Urine Blood (Negative) Ur Leukocyte Esterase (Negative) Urine WBC (0-5) /hpf Amorphous Sediment (None) /hpf Hyaline Casts (0-2) /lpf Urine Mucus (None) /hpf 03/31/17 03/31/17 03/31/17 Range/Units 10:20 12:05 17:51 WBC (3.8-10.6) k/uL RBC (4.30-5.90) m/uL Hgb (13.0-17.5) gm/dL Hct (39.0-53.0) % MCHC (31.0-37.0) g/dL Plt Count (150-450) k/uL Neutrophils # (1.3-7.7) k/uL Sodium (137-145) mmol/L Chloride (98-107) mmol/L Carbon Dioxide (22-30) mmol/L BUN (9-20) mg/dL Creatinine (0.66-1.25) mg/dL Glucose (74-99) mg/dL POC Glucose (mg/dL) 195 H 218 H (75-99) mg/dL Calcium (8.4-10.2) mg/dL Phosphorus (2.5-4.5) mg/dL Magnesium (1.6-2.3) mg/dL Urine Protein 1+ H (Negative) Urine Blood Small H (Negative) Ur Leukocyte Esterase Small H (Negative) Urine WBC 9 H (0-5) /hpf Amorphous Sediment Rare H (None) /hpf Hyaline Casts 12 H (0-2) /lpf Urine Mucus Rare H (None) /hpf 03/31/17 Range/Units 20:31 WBC (3.8-10.6) k/uL RBC (4.30-5.90) m/uL Hgb (13.0-17.5) gm/dL Hct (39.0-53.0) % MCHC (31.0-37.0) g/dL Plt Count (150-450) k/uL Neutrophils # (1.3-7.7) k/uL Sodium (137-145) mmol/L Chloride (98-107) mmol/L Carbon Dioxide (22-30) mmol/L BUN (9-20) mg/dL Creatinine (0.66-1.25) mg/dL Glucose (74-99) mg/dL POC Glucose (mg/dL) 230 H (75-99) mg/dL Calcium (8.4-10.2) mg/dL Phosphorus (2.5-4.5) mg/dL Magnesium (1.6-2.3) mg/dL Urine Protein (Negative) Urine Blood (Negative) Ur Leukocyte Esterase (Negative) Urine WBC (0-5) /hpf Amorphous Sediment (None) /hpf Hyaline Casts (0-2) /lpf Urine Mucus (None) /hpf Laboratory Results WBC 13.2 k/uL (3.8-10.6) H 03/31/17 04:12 RBC 2.67 m/uL (4.30-5.90) L 03/31/17 04:12 Hgb 7.5 gm/dL (13.0-17.5) L 03/31/17 04:12 Hct 25.0 % (39.0-53.0) L 03/31/17 04:12 MCV 93.7 fL (80.0-100.0) 03/31/17 04:12 MCH 28.2 pg (25.0-35.0) 03/31/17 04:12 MCHC 30.1 g/dL (31.0-37.0) L 03/31/17 04:12 RDW 15.4 % (11.5-15.5) 03/31/17 04:12 Plt Count 461 k/uL (150-450) H 03/31/17 04:12 Neutrophils % 78 % 03/31/17 04:12 Neutrophils % (Manual) 61.6 % 03/17/17 04:20 Band Neutrophils % 15.2 % 03/17/17 04:20 Lymphocytes % 11 % 03/31/17 04:12 Lymphocytes % (Manual) 18.2 % 03/17/17 04:20 Monocytes % 6 % 03/31/17 04:12 Monocytes % (Manual) 5.1 % 03/17/17 04:20 Eosinophils % 2 % 03/31/17 04:12 Basophils % 1 % 03/31/17 04:12 Metamyelocytes % 4.0 % 03/16/17 22:50 Neutrophils # 10.3 k/uL (1.3-7.7) H 03/31/17 04:12 Neutrophils # (Manual) 7.1 k/uL (1.3-7.7) 03/17/17 04:20 Lymphocytes # 1.4 k/uL (1.0-4.8) 03/31/17 04:12 Lymphocytes # (Manual) 1.7 k/uL (1.0-4.8) 03/17/17 04:20 Monocytes # 0.8 k/uL (0-1.0) 03/31/17 04:12 Monocytes # (Manual) 0.5 k/uL (0-1.0) 03/17/17 04:20 Eosinophils # 0.2 k/uL (0-0.7) 03/31/17 04:12 Basophils # 0.1 k/uL (0-0.2) 03/31/17 04:12 Nucleated RBCs 0 /100 WBC (0-0) 03/17/17 04:20 Manual Slide Review Performed 03/17/17 04:20 Toxic Granulation Present 03/16/17 16:30 RBC Morphology Normal 03/16/17 16:30 Hypochromasia Slight 03/31/17 04:12 Anisocytosis Slight 03/27/17 03:39 PT 10.4 sec (9.0-12.0) 03/16/17 16:30 INR 1.0 (<1.2) 03/16/17 16:30 APTT 22.1 sec (22.0-30.0) 03/16/17 16:30 Sample Site onsted 03/22/17 11:43 ABG pH 7.35 (7.35-7.45) 03/22/17 11:43 ABG pCO2 25 mmHg (35-45) L 03/22/17 11:43 ABG pO2 165 mmHg (83-108) H 03/22/17 11:43 ABG HCO3 13 mmol/L (21-25) L 03/22/17 11:43 ABG Total CO2 14 mmol/L (19-24) L 03/22/17 11:43 ABG O2 Saturation 99.0 % (94-97) H 03/22/17 11:43 ABG Base Excess -11.1 mmol/L 03/22/17 11:43 ABG Hematocrit 29 % (34.0-46.0) L 03/16/17 21:12 ABG Lactic Acid 0.7 mmol/L (0.5-1.6) 03/20/17 04:45 VBG pH 7.25 (7.31-7.41) L 03/16/17 16:30 VBG pCO2 29 mmHg (37-51) L 03/16/17 16:30 VBG HCO3 12 mmol/L (24-28) L 03/16/17 16:30 FiO2 40 % 03/22/17 11:43 Sodium 149 mmol/L (137-145) H 03/31/17 04:12 Potassium 4.7 mmol/L (3.5-5.1) 03/31/17 04:12 Chloride 116 mmol/L (98-107) H 03/31/17 04:12 Carbon Dioxide 18 mmol/L (22-30) L 03/31/17 04:12 Anion Gap 15 mmol/L 03/31/17 04:12 BUN 105 mg/dL (9-20) H* 03/31/17 04:12 Creatinine 4.00 mg/dL (0.66-1.25) H 03/31/17 04:12 Est GFR (MDRD) Af Amer 18 (>60 ml/min/1.73 sqM) 03/31/17 04:12 Est GFR (MDRD) Non-Af 15 (>60 ml/min/1.73 sqM) 03/31/17 04:12 Glucose 113 mg/dL (74-99) H 03/31/17 04:12 POC Glucose (mg/dL) 230 mg/dL (75-99) H 03/31/17 20:31 POC Glu Track Greaser ID Anna Mcgill 03/31/17 20:[address] Glu mg/dL 174 mg/dL 03/17/17 04:20 Hemoglobin A1c 7.7 % (4.2-6.1) H 03/17/17 04:20 Lactic Ac Sepsis Rflx Y 03/16/17 16:57 Plasma Lactic Acid Mario 2.8 mmol/L (0.7-2.0) H* 03/16/17 22:42 Calcium 7.9 mg/dL (8.4-10.2) L 03/31/17 04:12 Ionized Calcium Valorie 4.8 mg/dL (4.5-5.3) 03/27/17 03:39 Phosphorus 5.2 mg/dL (2.5-4.5) H 03/31/17 04:12 Magnesium 2.4 mg/dL (1.6-2.3) H 03/31/17 04:12 Total Bilirubin 1.5 mg/dL (0.2-1.3) H 03/20/17 11:36 AST 19 U/L (17-59) 03/20/17 11:36 ALT 28 U/L (21-72) 03/20/17 11:36 Alkaline Phosphatase 60 U/L (38-126) 03/20/17 11:36 Total Creatine Kinase 216 U/L (55-170) H 03/16/17 16:30 CK-MB (CK-2) 2.9 ng/mL (0.0-2.4) H* 03/16/17 16:30 CK-MB (CK-2) Rel Index 1.3 03/16/17 16:30 Troponin I 0.590 ng/mL (0.000-0.034) H* 03/16/17 16:30 Total Protein 3.4 g/dL (6.3-8.2) L 03/20/17 11:36 Albumin 1.9 g/dL (3.5-5.0) L 03/27/17 03:39 Triglycerides 142 mg/dL (<150) 03/27/17 03:39 TSH 0.672 mIU/L (0.465-4.680) 03/16/17 16:30 Urine Color Yellow 03/31/17 10:20 Urine Appearance Turbid (Clear) 03/31/17 10:20 Urine pH 5.0 (5.0-8.0) 03/31/17 10:20 Ur Specific [place] 1.015 (1.001-1.035) 03/31/17 10:20 Urine Protein 1+ (Negative) H 03/31/17 10:20 Urine Glucose (UA) Negative (Negative) 03/31/17 10:20 Urine Ketones Negative (Negative) 03/31/17 10:20 Urine Blood Small (Negative) H 03/31/17 10:20 Urine Nitrite Negative (Negative) 03/31/17 10:20 Urine Bilirubin Negative (Negative) 03/31/17 10:20 Urine Urobilinogen <2.0 mg/dL (<2.0) 03/31/17 10:20 Ur Leukocyte Esterase Small (Negative) H 03/31/17 10:20 Urine RBC 4 /hpf (0-5) 03/31/17 10:20 Urine WBC 9 /hpf (0-5) H 03/31/17 10:20 Amorphous Sediment Rare /hpf (None) H 03/31/17 10:20 Hyaline Casts 12 /lpf (0-2) H 03/31/17 10:20 Granular Casts 2 /lpf (0) 03/31/17 10:20 Urine Mucus Rare /hpf (None) H 03/31/17 10:20 Urine Eosinophils 0 % 03/31/17 10:20 Random Vancomycin 15.3 ug/mL 03/30/17 04:27 C. difficile (EIA) Intrp Negative (Negative) 03/28/17 15:06 Blood Type A Positive 03/28/17 10:58 Blood Type Recheck No 03/28/17 10:58 Antibody Screen NEGATIVE 03/28/17 10:58 Crossmatch See Detail 03/28/17 10:58 Spec Expiration Date 03/31/2017 - 2358 03/28/17 10:58 Microbiology 03/23/17 08:00 Peritoneal Fluid Gram Stain - Final 03/23/17 08:00 Peritoneal Fluid Body Fluid Culture - Final 03/16/17 16:30 Blood Blood Culture - Final No Growth after 144 hours 03/18/17 02:25 Sputum Gram Stain - Final 03/18/17 02:25 Sputum Sputum Culture - Final Methicillin resist S. aureus 03/16/17 19:00 Urine,Voided Urine Culture - Final Assessment and Plan (1) Septic shock Narrative/Plan: 66-year-old male with multiple medical troubles with left toe amputations and right below-knee amputation due to his severe peripheral vascular disease. Now presents with a significant bout of sepsis from the abdomen. Has evidence of pneumoperitoneum. Perforated gastric ulcer was noted. As well as gangrenous cholecystitis. He's had the surgical incision is noted. Now improving from his septic shock. For sepsis from the abdominal source in the condition of the perforation and gangrenous cholecystitis continue with antifungal therapy with fluconazole. Piperacillin tazobactam is being dosed per his renal failure. Has a history of MRSA as well as VRE infection. Daptomycin was being utilized. However MRSA was found in the pulmonary secretions. Was changed to vancomycin and that no VRE has now been isolated from his abdominal cultures. Concerns related to his acute renal failure. Will be monitored closely. Cultures are in process. Supportive care continues. Doing well after extubation is awake and comfortable. Not complaining of abdominal pain. Status: Acute (2) Gastric perforation Status: Acute (3) Cholecystitis Status: Acute
[2017-04-01] MEDS: HEPARIN SODIUM,PORCINE 5,000 UNIT/ML 1 ML VIAL SQ SCH ×4 (00:15→23:03)
[2017-04-01] MEDS: HYDROmorphone 1 MG/ML 1 ML SYRINGE IVP PRN ×3 (03:15→18:58)
[2017-04-01] MEDS: INSULIN LISPRO (humaLOG) 300 UNIT/3 ML VIAL SQ SCH ×5 (03:18→22:18)
[2017-04-01 03:19] LABS: Glucose,Whole Blood 186 mg/dL (75-99)
[2017-04-01 04:49] LABS: Basophils # (A) 0.1 k/uL (0-0.2); Basophils % (A) 1 %; CH 27.8; CHCM 30.3; Eosinophils # (A) 0.2 k/uL (0-0.7); Eosinophils % (A) 1 %; HCT 24.4 % (39.0-53.0); HDW 2.95; HGB 7.4 gm/dL (13.0-17.5); Hypochromasia Moderate; Luc % (Auto) 3; Lymphocytes # (A) 1.4 k/uL (1.0-4.8); Lymphocytes % (A) 10 %; MCH 27.9 pg (25.0-35.0); MCHC 30.3 g/dL (31.0-37.0); MCV 92.3 fL (80.0-100.0); Mean Platelet Volume 8.3; Monocytes # (A) 0.8 k/uL (0-1.0); Monocytes % (A) 5 %; Neutrophils # (A) 11.7 k/uL (1.3-7.7); Neutrophils % (A) 80 %; RBC 2.65 m/uL (4.30-5.90); RDW 14.8 % (11.5-15.5); WBC 14.6 k/uL (3.8-10.6); WBC (Perox) 15.73
[2017-04-01 04:59] LABS: Magnesium 2.5 mg/dL (1.6-2.3); Phosphorous 5.3 mg/dL (2.5-4.5); Potassium 4.3 mmol/L (3.5-5.1)
[2017-04-01] MEDS: DEXTROSE 5% IN WATER 1,000 ML IV SCH ×4 (06:24→23:03)
[2017-04-01] MEDS: IPRATROPIUM-ALBUTEROL 3 ML NEB INHALATION SCH ×4 (07:16→19:53)
[2017-04-01 07:45] LABS: Glucose,Whole Blood 143 mg/dL (75-99)
--- NOTE | 2017-04-01 08:14 | XR ---
EXAMINATION TYPE: XR chest 1V portable DATE OF EXAM: 04/01/2017 COMPARISON: NONE INDICATION: Pleural effusion TECHNIQUE: Single frontal view of the chest is obtained. FINDINGS: The heart size is normal. The pulmonary vasculature is normal. There is a small right pleural effusion. Infiltrate is present to the right lower lung field. This is improving. A minimal left pleural effusion appears stable. IMPRESSION: 1. Small bilateral pleural effusions. 2. Right lower lobe infiltrate. Correlate for atelectasis and pneumonia.
[2017-04-01] MEDS: FLUCONAZOLE IN NACL,ISO-OSM 100 MG in SALINE 1 50ML.BAG IVPB SCH (08:37)
[2017-04-01] MEDS: PANTOPRAZOLE 40 MG/10 ML VIAL IV SCH ×2 (08:40→22:18)
[2017-04-01] MEDS: PIPERACILLIN-TAZOBACTAM 3.375 GM in DEXTROSE/WATER 1 50ML.BAG IVPB SCH ×2 (08:47→22:17)
[2017-04-01] MEDS: FUROSEMIDE 10 MG/ML 4 ML VIAL IV SCH (08:55)
--- NOTE | 2017-04-01 09:07 | P.PN ---
Subjective Patient is seen in follow-up for acute renal failure and metabolic acidosis. Renal function is gradually worsening with creatinine at 4.1 today. Patient is maintained on TPN. He is also now on nectar thick diet. He was extubated . Patient presented with a perforated peptic ulcer and underwent exploratory laparotomy and open cholecystectomy this admission. Diuretics were held starting March 31. He is nonoliguric. Patient does have underlying chronic kidney disease with creatinine in the range of 2.4-2.5 in July 2016. Off pressors. States he feels well. Sodium level is up to 150 this morning. Currently not on any IV fluids. Vital signs are stable. General: Now extubated. HEENT: Head exam is unremarkable. Neck is without jugular venous distension. LUNGS: Scattered rhonchi. Breath sounds decreased. HEART: Rate and Rhythm are regular. First and second heart sounds normal. No murmurs, rubs or gallops. ABDOMEN: Bowel sounds present. EXTREMITITES: Trace edema. Left BKA noted. Objective - Vital Signs Vital signs: Vital Signs Temp 98.3 F 04/01/17 08:00 Pulse 110 H 04/01/17 08:00 Resp 25 H 04/01/17 08:00 BP 122/65 04/01/17 08:00 Pulse Ox 94 L 04/01/17 08:00 Intake & Output 03/31/17 04/01/17 04/01/17 18:59 06:59 18:59 Intake Total 7032.022 9365.333 Output Total 3065 1040 Balance -7390.769 9738.333 Weight 93.3 kg 90.6 kg Intake: IV 240 587 0.9 at 20 ml/hr 240 240 Fat Emulsion 20% 250 ml 147 In Empty Bag 1 bag @ 21 mls/hr IV DAILY@1400 XENA Rx#:[id number] Potassium Acetate 20 meq 200 Parenteral Electrolytes 20 ml In Amino Acid 5%- D15w 1,000 ml @ 50 mls/hr IV .BY DURATION XENA Rx#: [id number] Intake, IV Titration 1.247 2054.333 Amount Insulin Regular 100 unit 1.247 In Sodium Chloride 0.9% 100 ml @ Per Protocol IV .Q0M XENA Rx#:[id number] Mvi, Adult No.4 with Vit 1041 K 10 ml Trace (Conc-1Ml/ Dose) 1 ml Potassium Acetate 20 meq Parenteral Electrolytes 20 ml In Amino Acid 5%-D15w 1,000 ml @ 50 mls/hr IV .BY DURATION XENA Rx#: [id number] Potassium Acetate 20 meq 1013.333 Parenteral Electrolytes 20 ml In Amino Acid 5%- D15w 1,000 ml @ 50 mls/hr IV .BY DURATION XENA Rx#: [id number] Oral 840 Output: Drainage 15 Right Lower Abdomen 15 Urine 850 1040 Stool 2200 Other: Voiding Method Indwelling Catheter Indwelling Catheter ABP, PAP, CO, CI - Last Documented Arterial Blood Pressure 146/54 - Labs CBC & Chem 7: 04/01/17 04:20 04/01/17 04:20 Labs: Abnormal Lab Results - Last 24 Hours (Table) 03/31/17 03/31/17 03/31/17 Range/Units 10:20 12:05 17:51 WBC (3.8-10.6) k/uL RBC (4.30-5.90) m/uL Hgb (13.0-17.5) gm/dL Hct (39.0-53.0) % MCHC (31.0-37.0) g/dL Plt Count (150-450) k/uL Neutrophils # (1.3-7.7) k/uL Sodium (137-145) mmol/L Chloride (98-107) mmol/L Carbon Dioxide (22-30) mmol/L BUN (9-20) mg/dL Creatinine (0.66-1.25) mg/dL Glucose (74-99) mg/dL POC Glucose (mg/dL) 195 H 218 H (75-99) mg/dL Calcium (8.4-10.2) mg/dL Phosphorus (2.5-4.5) mg/dL Magnesium (1.6-2.3) mg/dL Urine Protein 1+ H (Negative) Urine Blood Small H (Negative) Ur Leukocyte Esterase Small H (Negative) Urine WBC 9 H (0-5) /hpf Amorphous Sediment Rare H (None) /hpf Hyaline Casts 12 H (0-2) /lpf Urine Mucus Rare H (None) /hpf 03/31/17 04/01/17 04/01/17 Range/Units 20:31 03:18 04:20 WBC 14.6 H (3.8-10.6) k/uL RBC 2.65 L (4.30-5.90) m/uL Hgb 7.4 L (13.0-17.5) gm/dL Hct 24.4 L (39.0-53.0) % MCHC 30.3 L (31.0-37.0) g/dL Plt Count 488 H (150-450) k/uL Neutrophils # 11.7 H (1.3-7.7) k/uL Sodium (137-145) mmol/L Chloride (98-107) mmol/L Carbon Dioxide (22-30) mmol/L BUN (9-20) mg/dL Creatinine (0.66-1.25) mg/dL Glucose (74-99) mg/dL POC Glucose (mg/dL) 230 H 186 H (75-99) mg/dL Calcium (8.4-10.2) mg/dL Phosphorus (2.5-4.5) mg/dL Magnesium (1.6-2.3) mg/dL Urine Protein (Negative) Urine Blood (Negative) Ur Leukocyte Esterase (Negative) Urine WBC (0-5) /hpf Amorphous Sediment (None) /hpf Hyaline Casts (0-2) /lpf Urine Mucus (None) /hpf 04/01/17 04/01/17 Range/Units 04:20 07:44 WBC (3.8-10.6) k/uL RBC (4.30-5.90) m/uL Hgb (13.0-17.5) gm/dL Hct (39.0-53.0) % MCHC (31.0-37.0) g/dL Plt Count (150-450) k/uL Neutrophils # (1.3-7.7) k/uL Sodium 150 H (137-145) mmol/L Chloride 119 H (98-107) mmol/L Carbon Dioxide 16 L (22-30) mmol/L BUN 102 H* (9-20) mg/dL Creatinine 4.10 H (0.66-1.25) mg/dL Glucose 184 H (74-99) mg/dL POC Glucose (mg/dL) 143 H (75-99) mg/dL Calcium 8.0 L (8.4-10.2) mg/dL Phosphorus 5.3 H (2.5-4.5) mg/dL Magnesium 2.5 H (1.6-2.3) mg/dL Urine Protein (Negative) Urine Blood (Negative) Ur Leukocyte Esterase (Negative) Urine WBC (0-5) /hpf Amorphous Sediment (None) /hpf Hyaline Casts (0-2) /lpf Urine Mucus (None) /hpf Assessment and Plan Plan: Assessment: #1. Nonoliguric acute kidney injury secondary to ischemic ATN secondary to hypotension and sepsis. Renal function gradually worsening with creatinine up to 4.1 today, which is likely from diuresis and poor oral intake. Also concern for ALLERGIC interstitial nephritis - urine eosinophils negative. Vancomycin has now been discontinued. #2. Perforated peptic ulcer status post exploratory laparotomy and open cholecystectomy on March 16. Upper GI study benign from 03/26. #3. Metabolic acidosis with respiratory compensation secondary to acute kidney injury. #4. Hypotension secondary to sepsis. Off vasopressors. Resolved. #5. Anemia of chronic kidney disease. Status post blood transfusion this admission. Hemoglobin 7.4 today. #6. Sepsis secondary to perforated ulcer and gangrenous cholecystitis. Sputum culture positive for MRSA. #7. 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 Etiology is likely diabetic kidney disease. #8. Hypernatremia secondary to diuresis and lack of oral water intake. #9. Hypokalemia secondary to poor nutritional status and renal potassium wasting. Magnesium replete. Improved. Plan: Start oral sodium bicarbonate 1300 mg twice daily. Encourage oral intake. Start D5W to be run at 70 mL an hour. Hold Lasix. Antibiotics per infectious disease recommendations - now off vancomycin. Avoid nephrotoxic agents and hypotensive episodes. No urgent need for renal replacement therapy at this time. Maintain Aranesp.
--- NOTE | 2017-04-01 10:07 | P.PN ---
Subjective A 66-year-old male patient who came into the intensive care unit after undergoing expiratory laparotomy and repair of a perforated peptic ulcer with a modified Don patch and open cholecystectomy. Surgery was done and the patient was brought into the intensive care unit intubated on a mechanical ventilator. According to the reported history the patient was having 3-4 days history of a vague abdominal pain. This being gradually got worse. The patient was also having constipation. He had some nausea without vomiting. Appetite was diminished. No bright red blood per rectum. The pain was mainly over the central abdomen. No history of any peptic ulcer disease or diverticular disease. The x-ray of the abdomen in the emergency department showed pneumoperitoneum and the CAT scan confirmed the presence of a large volume of free air. The gallbladder was also thickened. The majority of the air was in the upper abdomen. Intraoperatively, the patient was found to have a perforated peptic ulcer and a gangrenous gallbladder. Patient is seen again today 04/01/2017 in follow-up in the intensive care unit. He is currently awake and alert in no acute distress. He is waiting a medical surgical bed. He has an IV of D5W at 70 miles per hour as his sodium is up to 150. TPN at 50 mL per hour, lipids at 21 mL's per hour. He is on room air and maintaining O2 saturations in the 90s. His chest x-ray shows small bilateral pleural effusions and a right lower lobe infiltrate. He remains on vancomycin, Flagyl and Zosyn. White count 14.6. Hemoglobin 7.4. Objective - Vital Signs Vital signs: Vital Signs Temp 98.3 F 04/01/17 08:00 Pulse 110 H 04/01/17 09:00 Resp 17 04/01/17 09:00 BP 132/77 04/01/17 09:00 Pulse Ox 88 L 04/01/17 09:00 Intake & Output 03/31/17 04/01/17 04/01/17 18:59 06:59 18:59 Intake Total 8084.454 7748.333 372.5 Output Total 3065 1040 100 Balance -9944.305 7802.333 272.5 Weight 93.3 kg 90.6 kg Intake: IV 240 587 62.5 0.9 at 20 ml/hr 240 240 Fat Emulsion 20% 250 ml 147 In Empty Bag 1 bag @ 21 mls/hr IV DAILY@1400 [facility] Rx#:[id number] Fluconazole in NaCl Iso- 50 Osm 100mg in Saline 1 50ml.bag @50mls/hr IVPB Daily Piperacillin-Tazobactam 3 12.5 .375 gm In Dextrose/Water 1 50ml.bag @ 12.5 mls/hr IVPB Q8HR [facility] Rx#: [id number] Potassium Acetate 20 meq 200 Parenteral Electrolytes 20 ml In Amino Acid 5%- D15w 1,000 ml @ 50 mls/hr IV .BY DURATION [facility] Rx#: [id number] Intake, IV Titration 1.247 2054.333 70 Amount Dextrose 5% in Water 1, 70 000 ml @ 70 mls/hr IV . [id number] [facility] Rx#:[id number] Insulin Regular 100 unit 1.247 In Sodium Chloride 0.9% 100 ml @ Per Protocol IV .Q0M [facility] Rx#:[id number] Mvi, Adult No.4 with Vit 1041 K 10 ml Trace (Conc-1Ml/ Dose) 1 ml Potassium Acetate 20 meq Parenteral Electrolytes 20 ml In Amino Acid 5%-D15w 1,000 ml @ 50 mls/hr IV .BY DURATION [facility] Rx#: [id number] Potassium Acetate 20 meq 1013.333 Parenteral Electrolytes 20 ml In Amino Acid 5%- D15w 1,000 ml @ 50 mls/hr IV .BY DURATION [facility] Rx#: [id number] Oral 840 240 Output: Drainage 15 Right Lower Abdomen 15 Urine 850 1040 100 Stool 2200 Other: Voiding Method Indwelling Catheter Indwelling Catheter Indwelling Catheter ABP, PAP, CO, CI - Last Documented Arterial Blood Pressure 146/54 - Exam Patient is comfortable. Head exam was generally normal. There was no scleral icterus or corneal arcus. Mucous membranes were moist. Neck is supple. Lungs were clear to auscultation and percussion, and with normal diaphragmatic excursion. No wheezes or rales were noted. Cardiac exam revealed the PMI to be normally situated and sized. The rhythm was regular and no extrasystoles were noted during several minutes of auscultation. The first and second heart sounds were normal and physiologic splitting of the second heart sound was noted. There were no murmurs, rubs, clicks, or gallops. Abdomen is soft. Bowel sounds are resonant, fecal management system in place. There is a midabdominal large skin wound which is dry clean and intact. No ascites. Extremities show below-knee amputation on the right, 4 of the toes are missing in the left foot with diminished pulses at the obtained by Doppler signal. Neurologically the patient is intact. - Labs CBC & Chem 7: 04/01/17 04:20 04/01/17 04:20 Labs: Abnormal Lab Results - Last 24 Hours (Table) 03/31/17 03/31/17 03/31/17 Range/Units 10:20 12:05 17:51 WBC (3.8-10.6) k/uL RBC (4.30-5.90) m/uL Hgb (13.0-17.5) gm/dL Hct (39.0-53.0) % MCHC (31.0-37.0) g/dL Plt Count (150-450) k/uL Neutrophils # (1.3-7.7) k/uL Sodium (137-145) mmol/L Chloride (98-107) mmol/L Carbon Dioxide (22-30) mmol/L BUN (9-20) mg/dL Creatinine (0.66-1.25) mg/dL Glucose (74-99) mg/dL POC Glucose (mg/dL) 195 H 218 H (75-99) mg/dL Calcium (8.4-10.2) mg/dL Phosphorus (2.5-4.5) mg/dL Magnesium (1.6-2.3) mg/dL Urine Protein 1+ H (Negative) Urine Blood Small H (Negative) Ur Leukocyte Esterase Small H (Negative) Urine WBC 9 H (0-5) /hpf Amorphous Sediment Rare H (None) /hpf Hyaline Casts 12 H (0-2) /lpf Urine Mucus Rare H (None) /hpf 03/31/17 04/01/17 04/01/17 Range/Units 20:31 03:18 04:20 WBC 14.6 H (3.8-10.6) k/uL RBC 2.65 L (4.30-5.90) m/uL Hgb 7.4 L (13.0-17.5) gm/dL Hct 24.4 L (39.0-53.0) % MCHC 30.3 L (31.0-37.0) g/dL Plt Count 488 H (150-450) k/uL Neutrophils # 11.7 H (1.3-7.7) k/uL Sodium (137-145) mmol/L Chloride (98-107) mmol/L Carbon Dioxide (22-30) mmol/L BUN (9-20) mg/dL Creatinine (0.66-1.25) mg/dL Glucose (74-99) mg/dL POC Glucose (mg/dL) 230 H 186 H (75-99) mg/dL Calcium (8.4-10.2) mg/dL Phosphorus (2.5-4.5) mg/dL Magnesium (1.6-2.3) mg/dL Urine Protein (Negative) Urine Blood (Negative) Ur Leukocyte Esterase (Negative) Urine WBC (0-5) /hpf Amorphous Sediment (None) /hpf Hyaline Casts (0-2) /lpf Urine Mucus (None) /hpf 04/01/17 04/01/17 Range/Units 04:20 07:44 WBC (3.8-10.6) k/uL RBC (4.30-5.90) m/uL Hgb (13.0-17.5) gm/dL Hct (39.0-53.0) % MCHC (31.0-37.0) g/dL Plt Count (150-450) k/uL Neutrophils # (1.3-7.7) k/uL Sodium 150 H (137-145) mmol/L Chloride 119 H (98-107) mmol/L Carbon Dioxide 16 L (22-30) mmol/L BUN 102 H* (9-20) mg/dL Creatinine 4.10 H (0.66-1.25) mg/dL Glucose 184 H (74-99) mg/dL POC Glucose (mg/dL) 143 H (75-99) mg/dL Calcium 8.0 L (8.4-10.2) mg/dL Phosphorus 5.3 H (2.5-4.5) mg/dL Magnesium 2.5 H (1.6-2.3) mg/dL Urine Protein (Negative) Urine Blood (Negative) Ur Leukocyte Esterase (Negative) Urine WBC (0-5) /hpf Amorphous Sediment (None) /hpf Hyaline Casts (0-2) /lpf Urine Mucus (None) /hpf Assessment and Plan Plan: Assessment 1 acute abdomen status post extra laparotomy and repair of a perforated peptic ulcer a modified Don patch and open cholecystectomy. 2 shock likely septic in nature secondary to intra-abdominal sepsis complicated by perforated peptic ulcer and cholecystitis. Patient off pressors. 3 hypotension secondary to above , recovered, off pressors 4 acute respiratory failure, a complication of septic shock and methicillin resistant Staphylococcus aureus. Oxygenating and ventilating well. 5 acute kidney injury on top of chronic renal failure. The patient has stage II kidney disease at baseline due to diabetic nephropathy. Acute kidney injury related to hypotension/sepsis due to ATN. The patient remains in acute kidney injury. His urine output has improved. Creatinine is elevated at 4.10. 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 Plan: The patient was seen and evaluated by Dr. Mackay. His chest x-ray, ABGs and labs were reviewed. The patient's Lasix is on hold. He is tolerating his diet. We'll continue with TPN and lipids for now. Continue D5W at 70 mL's per hour for his hypernatremia. We'll continue to follow make further recommendations based on his clinical status.
[2017-04-01 12:29] LABS: Glucose,Whole Blood 208 mg/dL (75-99)
--- NOTE | 2017-04-01 12:43 | P.PN ---
Subjective Principal diagnosis: Perforated peptic ulcer Patient doing well today. He seems more alert. White blood cell count is 14.6. Denies abdominal pain. LOUISA drain was removed yesterday. Objective - Vital Signs Vital signs: Vital Signs Temp 98.3 F 04/01/17 08:00 Pulse 103 H 04/01/17 11:26 Resp 21 04/01/17 11:00 BP 131/77 04/01/17 11:00 Pulse Ox 92 L 04/01/17 11:00 Intake & Output 03/31/17 04/01/17 04/01/17 18:59 06:59 18:59 Intake Total 3541.956 1322.333 537.5 Output Total 3065 1040 500 Balance -6340.281 4937.333 37.5 Weight 93.3 kg 90.6 kg Intake: IV 240 587 87.5 0.9 at 20 ml/hr 240 240 Fat Emulsion 20% 250 ml 147 In Empty Bag 1 bag @ 21 mls/hr IV DAILY@1400 [facility] Rx#:[id number] Fluconazole in NaCl Iso- 50 Osm 100mg in Saline 1 50ml.bag @50mls/hr IVPB Daily Piperacillin-Tazobactam 3 37.5 .375 gm In Dextrose/Water 1 50ml.bag @ 12.5 mls/hr IVPB Q8HR [facility] Rx#: [id number] Potassium Acetate 20 meq 200 Parenteral Electrolytes 20 ml In Amino Acid 5%- D15w 1,000 ml @ 50 mls/hr IV .BY DURATION [facility] Rx#: [id number] Intake, IV Titration 1.247 2054.333 210 Amount Dextrose 5% in Water 1, 210 000 ml @ 70 mls/hr IV . [id number] [facility] Rx#:[id number] Insulin Regular 100 unit 1.247 In Sodium Chloride 0.9% 100 ml @ Per Protocol IV .Q0M [facility] Rx#:[id number] Mvi, Adult No.4 with Vit 1041 K 10 ml Trace (Conc-1Ml/ Dose) 1 ml Potassium Acetate 20 meq Parenteral Electrolytes 20 ml In Amino Acid 5%-D15w 1,000 ml @ 50 mls/hr IV .BY DURATION [facility] Rx#: [id number] Potassium Acetate 20 meq 1013.333 Parenteral Electrolytes 20 ml In Amino Acid 5%- D15w 1,000 ml @ 50 mls/hr IV .BY DURATION [facility] Rx#: [id number] Oral 840 240 Output: Drainage 15 Right Lower Abdomen 15 Urine 850 1040 500 Stool 2200 Other: Voiding Method Indwelling Catheter Indwelling Catheter Indwelling Catheter ABP, PAP, CO, CI - Last Documented Arterial Blood Pressure 146/54 - Exam Abdomen: Soft, nontender, nondistended, 3 small midline wounds with scant serous drainage - Labs CBC & Chem 7: 04/01/17 04:20 04/01/17 04:20 Labs: Abnormal Lab Results - Last 24 Hours (Table) 03/31/17 03/31/17 03/31/17 Range/Units 10:20 17:51 20:31 WBC (3.8-10.6) k/uL RBC (4.30-5.90) m/uL Hgb (13.0-17.5) gm/dL Hct (39.0-53.0) % MCHC (31.0-37.0) g/dL Plt Count (150-450) k/uL Neutrophils # (1.3-7.7) k/uL Sodium (137-145) mmol/L Chloride (98-107) mmol/L Carbon Dioxide (22-30) mmol/L BUN (9-20) mg/dL Creatinine (0.66-1.25) mg/dL Glucose (74-99) mg/dL POC Glucose (mg/dL) 218 H 230 H (75-99) mg/dL Calcium (8.4-10.2) mg/dL Phosphorus (2.5-4.5) mg/dL Magnesium (1.6-2.3) mg/dL Urine Protein 1+ H (Negative) Urine Blood Small H (Negative) Ur Leukocyte Esterase Small H (Negative) Urine WBC 9 H (0-5) /hpf Amorphous Sediment Rare H (None) /hpf Hyaline Casts 12 H (0-2) /lpf Urine Mucus Rare H (None) /hpf 04/01/17 04/01/17 04/01/17 Range/Units 03:18 04:20 04:20 WBC 14.6 H (3.8-10.6) k/uL RBC 2.65 L (4.30-5.90) m/uL Hgb 7.4 L (13.0-17.5) gm/dL Hct 24.4 L (39.0-53.0) % MCHC 30.3 L (31.0-37.0) g/dL Plt Count 488 H (150-450) k/uL Neutrophils # 11.7 H (1.3-7.7) k/uL Sodium 150 H (137-145) mmol/L Chloride 119 H (98-107) mmol/L Carbon Dioxide 16 L (22-30) mmol/L BUN 102 H* (9-20) mg/dL Creatinine 4.10 H (0.66-1.25) mg/dL Glucose 184 H (74-99) mg/dL POC Glucose (mg/dL) 186 H (75-99) mg/dL Calcium 8.0 L (8.4-10.2) mg/dL Phosphorus 5.3 H (2.5-4.5) mg/dL Magnesium 2.5 H (1.6-2.3) mg/dL Urine Protein (Negative) Urine Blood (Negative) Ur Leukocyte Esterase (Negative) Urine WBC (0-5) /hpf Amorphous Sediment (None) /hpf Hyaline Casts (0-2) /lpf Urine Mucus (None) /hpf 04/01/17 04/01/17 Range/Units 07:44 12:25 WBC (3.8-10.6) k/uL RBC (4.30-5.90) m/uL Hgb (13.0-17.5) gm/dL Hct (39.0-53.0) % MCHC (31.0-37.0) g/dL Plt Count (150-450) k/uL Neutrophils # (1.3-7.7) k/uL Sodium (137-145) mmol/L Chloride (98-107) mmol/L Carbon Dioxide (22-30) mmol/L BUN (9-20) mg/dL Creatinine (0.66-1.25) mg/dL Glucose (74-99) mg/dL POC Glucose (mg/dL) 143 H 208 H (75-99) mg/dL Calcium (8.4-10.2) mg/dL Phosphorus (2.5-4.5) mg/dL Magnesium (1.6-2.3) mg/dL Urine Protein (Negative) Urine Blood (Negative) Ur Leukocyte Esterase (Negative) Urine WBC (0-5) /hpf Amorphous Sediment (None) /hpf Hyaline Casts (0-2) /lpf Urine Mucus (None) /hpf Assessment and Plan (1) Free intraperitoneal air Narrative/Plan: Continue diet per speech pathology. Continue antiacids and antibiotics. Increase activity level. Status: Acute
[2017-04-01] MEDS: [UNRECOGNIZED DRUG - REMARK] IV SCH ×5 (15:11)
[2017-04-01] MEDS: FAT EMULSION 20% 250 ML in EMPTY BAG 1 BAG IV SCH (15:12)
[2017-04-01 17:03] LABS: Glucose,Whole Blood 211 mg/dL (75-99)
[2017-04-01] MEDS: 1: MVI, ADULT NO.4 WITH VIT K 10 ML, TRACE (CONC-1ML/DOSE) 1 ML, POTASSIUM ACETATE 20 ME IV SCH ×5 (17:54)
[2017-04-01 20:51] LABS: Glucose,Whole Blood 239 mg/dL (75-99)
[2017-04-01] MEDS: SODIUM BICARBONATE TAB 650 MG TAB PO SCH (22:19)
--- NOTE | 2017-04-01 22:32 | P.PN ---
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 [facility] most recently under the care of Dr. Gordon and discharged in August 2016 after a dehiscence of the right below the knee wound healed. Patient presented to [facility] emergency center on March 16 with generalized weakness and abdominal pain for at least couple days up to 1 week with concerns for constipation and was taking laxatives with no improvement. Patient also had decreased appetite and pain was gradually worsening. There was nausea without vomiting. Chest x-ray showed pneumoperitoneum and left basilar atelectasis with no heart failure. Abdominal films also showed pneumoperitoneum. CAT scan of the abdomen and pelvis without contrast and was found have a large pneumoperitoneum, large ascites, large nonobstructive right renal calculi and possible gallbladder thickening with concern for gangrenous gallbladder. Patient was taken to the OR by Dr. Wiley for exploratory laparotomy with repair of perforated peptic ulcer and open cholecystectomy. Patient was then transferred to the intensive care unit where he remains intubated and on mechanical ventilation. Patient presented with severe sepsis and septic shock status post 7 1/2 liters of fluid currently on levo at 20 mics. He did not have a urine output for the day shift thus far. O2 needs have decreased however. He is currently on IV antimicrobials in the form of fluconazole, Flagyl and Zosyn. Blood cultures status received and urine culture status received. C. difficile toxin was negative. Patient is noted to have a stage II decubitus ulcer on his buttocks that was present on admission. Today there has been improvement. He has now been extubated. Weaned vasopressor therapy. Responded to fluids. Urine output is improved. acute renal failure improving Patient is awake and comfortable. Objective - Vital Signs Vital signs: Vital Signs Temp 98.3 F 04/01/17 16:00 Pulse 100 04/01/17 20:05 Resp 24 04/01/17 17:00 BP 128/64 04/01/17 17:00 Pulse Ox 91 L 04/01/17 17:00 Intake & Output 04/01/17 04/01/17 04/02/17 06:59 18:59 06:59 Intake Total 2641.333 818.5 Output Total 1040 1350 Balance 1601.333 -531.5 Weight 90.6 kg 90.6 kg Intake: IV 587 108.5 0.9 at 20 ml/hr 240 Fat Emulsion 20% 250 ml 147 21 In Empty Bag 1 bag @ 21 mls/hr IV DAILY@1400 [facility] Rx#:[id number] Fluconazole in NaCl Iso- 50 Osm 100mg in Saline 1 50ml.bag @50mls/hr IVPB Daily Piperacillin-Tazobactam 3 37.5 .375 gm In Dextrose/Water 1 50ml.bag @ 12.5 mls/hr IVPB Q8HR [facility] Rx#: [id number] Potassium Acetate 20 meq 200 Parenteral Electrolytes 20 ml In Amino Acid 5%- D15w 1,000 ml @ 50 mls/hr IV .BY DURATION [facility] Rx#: [id number] Intake, IV Titration 2054.333 470 Amount Dextrose 5% in Water 1, 420 000 ml @ 70 mls/hr IV . [id number] [facility] Rx#:[id number] Mvi, Adult No.4 with Vit 1041 K 10 ml Trace (Conc-1Ml/ Dose) 1 ml Potassium Acetate 20 meq Parenteral Electrolytes 20 ml In Amino Acid 5%-D15w 1,000 ml @ 50 mls/hr IV .BY DURATION [facility] Rx#: [id number] Mvi, Adult No.4 with Vit 50 K 10 ml Trace (Conc-1Ml/ Dose) 1 ml Potassium Acetate 30 meq Calcium Gluconate 1,000 mg In Amino Acid 5%-D15w 1,000 ml @ 50 mls/hr IV . [id number] [facility] Rx#:[id number] Potassium Acetate 20 meq 1013.333 Parenteral Electrolytes 20 ml In Amino Acid 5%- D15w 1,000 ml @ 50 mls/hr IV .BY DURATION [facility] Rx#: [id number] Oral 240 Output: Urine 1040 750 Stool 600 Other: Voiding Method Indwelling Catheter Indwelling Catheter ABP, PAP, CO, CI - Last Documented Arterial Blood Pressure 146/54 - Exam Gen: This is an obese 66-year-old male. He is seen in the ICU, he has been extubated. Patient appears comfortable and in no acute distress. HEENT: Head is atraumatic, normocephalic. Oral ET and gastric tube in place. White coating noted on the tongue. Mucous membranes are slightly dry.. NECK: Supple. No JVD. No lymphadenopathy. Trachea midline. LUNGS: There is symmetrical air entry bilaterally. Coarse crackles are scattered the lung kraft. Subtly improved when he coughs. Scattered wheezes are also heard. HEART: Regular rate and rhythm. No murmur. Patient is tachycardic. ABDOMEN: Soft. Bowel sounds are not present. No masses. No tenderness. LOUISA drain to the right upper abdomen is draining serosanguineous fluid. Dressing to the right upper quadrant and midline are in place with no breakthrough drainage or bleeding. Castellanos catheter in place draining clear pinky urine. EXTREMITIES: No pedal edema to the left lower extremity. Patient has amputations of toes 2 through 5 on the left and a right below the knee amputation. All extremities are cool to the touch. No mottling noted. NEUROLOGICAL: Patient awake alert no acute deficits - Labs CBC & Chem 7: 04/01/17 04:20 04/01/17 04:20 Labs: Abnormal Lab Results - Last 24 Hours (Table) 04/01/17 04/01/17 04/01/17 Range/Units 03:18 04:20 04:20 WBC 14.6 H (3.8-10.6) k/uL RBC 2.65 L (4.30-5.90) m/uL Hgb 7.4 L (13.0-17.5) gm/dL Hct 24.4 L (39.0-53.0) % MCHC 30.3 L (31.0-37.0) g/dL Plt Count 488 H (150-450) k/uL Neutrophils # 11.7 H (1.3-7.7) k/uL Sodium 150 H (137-145) mmol/L Chloride 119 H (98-107) mmol/L Carbon Dioxide 16 L (22-30) mmol/L BUN 102 H* (9-20) mg/dL Creatinine 4.10 H (0.66-1.25) mg/dL Glucose 184 H (74-99) mg/dL POC Glucose (mg/dL) 186 H (75-99) mg/dL Calcium 8.0 L (8.4-10.2) mg/dL Phosphorus 5.3 H (2.5-4.5) mg/dL Magnesium 2.5 H (1.6-2.3) mg/dL 04/01/17 04/01/17 04/01/17 Range/Units 07:44 12:25 17:02 WBC (3.8-10.6) k/uL RBC (4.30-5.90) m/uL Hgb (13.0-17.5) gm/dL Hct (39.0-53.0) % MCHC (31.0-37.0) g/dL Plt Count (150-450) k/uL Neutrophils # (1.3-7.7) k/uL Sodium (137-145) mmol/L Chloride (98-107) mmol/L Carbon Dioxide (22-30) mmol/L BUN (9-20) mg/dL Creatinine (0.66-1.25) mg/dL Glucose (74-99) mg/dL POC Glucose (mg/dL) 143 H 208 H 211 H (75-99) mg/dL Calcium (8.4-10.2) mg/dL Phosphorus (2.5-4.5) mg/dL Magnesium (1.6-2.3) mg/dL 04/01/17 Range/Units 20:48 WBC (3.8-10.6) k/uL RBC (4.30-5.90) m/uL Hgb (13.0-17.5) gm/dL Hct (39.0-53.0) % MCHC (31.0-37.0) g/dL Plt Count Microbiology 03/23/17 08:00 Peritoneal Fluid Gram Stain - Final 03/23/17 08:00 Peritoneal Fluid Body Fluid Culture - Final 03/16/17 16:30 Blood Blood Culture - Final No Growth after 144 hours 03/18/17 02:25 Sputum Gram Stain - Final 03/18/17 02:25 Sputum Sputum Culture - Final Methicillin resist S. aureus 03/16/17 19:00 Urine,Voided Urine Culture - Final (150-450) k/uL Neutrophils # (1.3-7.7) k/uL Sodium (137-145) mmol/L Chloride (98-107) mmol/L Carbon Dioxide (22-30) mmol/L BUN (9-20) mg/dL Creatinine (0.66-1.25) mg/dL Glucose (74-99) mg/dL POC Glucose (mg/dL) 239 H (75-99) mg/dL Calcium (8.4-10.2) mg/dL Phosphorus (2.5-4.5) mg/dL Magnesium (1.6-2.3) mg/dL Assessment and Plan (1) Septic shock Narrative/Plan: 66-year-old male with multiple medical troubles with left toe amputations and right below-knee amputation due to his severe peripheral vascular disease. Now presents with a significant bout of sepsis from the abdomen. Has evidence of pneumoperitoneum. Perforated gastric ulcer was noted. As well as gangrenous cholecystitis. He's had the surgical incision is noted. Now improving from his septic shock. For sepsis from the abdominal source in the condition of the perforation and gangrenous cholecystitis continue with antifungal therapy with fluconazole. Piperacillin tazobactam is being dosed per his renal failure. Has a history of MRSA as well as VRE infection. Daptomycin was being utilized. However MRSA was found in the pulmonary secretions. Was changed to vancomycin and that no VRE has now been isolated from his abdominal cultures. Concerns related to his acute renal failure. Will be monitored closely. Cultures are in process. Supportive care continues. Doing well is awake and comfortable. Not complaining of abdominal pain. Status: Acute (2) Gastric perforation Status: Acute (3) Cholecystitis Status: Acute
[2017-04-02 02:04] LABS: Glucose,Whole Blood 261 mg/dL (75-99)
[2017-04-02] MEDS: HYDROmorphone 1 MG/ML 1 ML SYRINGE IVP PRN ×6 (02:06→17:49)
[2017-04-02] MEDS: INSULIN LISPRO (humaLOG) 300 UNIT/3 ML VIAL SQ SCH ×5 (02:06→20:57)
[2017-04-02 07:18] LABS: Glucose,Whole Blood 246 mg/dL (75-99)
[2017-04-02] MEDS: FLUCONAZOLE IN NACL,ISO-OSM 100 MG in SALINE 1 50ML.BAG IVPB SCH (07:41)
[2017-04-02] MEDS: PIPERACILLIN-TAZOBACTAM 3.375 GM in DEXTROSE/WATER 1 50ML.BAG IVPB SCH ×2 (07:43→20:56)
[2017-04-02] MEDS: SODIUM BICARBONATE TAB 650 MG TAB PO SCH ×2 (07:53→20:57)
[2017-04-02] MEDS: HEPARIN SODIUM,PORCINE 5,000 UNIT/ML 1 ML VIAL SQ SCH ×3 (07:53→23:06)
[2017-04-02] MEDS: PANTOPRAZOLE 40 MG/10 ML VIAL IV SCH ×2 (07:53→20:56)
[2017-04-02] MEDS: IPRATROPIUM-ALBUTEROL 3 ML NEB INHALATION SCH ×4 (08:59→20:42)
[2017-04-02] MEDS ORDERED: VANCOMYCIN IVPB ONE ×2 (10:00)
[2017-04-02] MEDS ORDERED: DEXTROSE 5% IVPB ONE ×2 (10:00)
[2017-04-02] MEDS ORDERED: WATER IVPB ONE ×2 (10:00)
[2017-04-02 10:32] LABS: Calcium 8.1 mg/dL (8.4-10.2); Potassium 5.1 mmol/L (3.5-5.1)
[2017-04-02] MEDS: [UNRECOGNIZED DRUG - REMARK] IV SCH ×5 (10:39)
--- NOTE | 2017-04-02 11:02 | P.PN ---
Subjective Patient is seen in follow-up for acute renal failure and metabolic acidosis. Renal function is also to improve his creatinine at 3.9 today. Patient is maintained on TPN. He is also now on nectar thick diet. He was extubated . Patient presented with a perforated peptic ulcer and underwent exploratory laparotomy and open cholecystectomy this admission. Diuretics were held starting March 31. He is nonoliguric. Patient does have underlying chronic kidney disease with creatinine in the range of 2.4-2.5 in July 2016. Off pressors. States he feels well. Sodium level is improved to 144. Vital signs are stable. General: Now extubated. HEENT: Head exam is unremarkable. Neck is without jugular venous distension. LUNGS: Scattered rhonchi. Breath sounds decreased. HEART: Rate and Rhythm are regular. First and second heart sounds normal. No murmurs, rubs or gallops. ABDOMEN: Bowel sounds present. EXTREMITITES: Trace edema. Left BKA noted. Objective - Vital Signs Vital signs: Vital Signs Temp 98.6 F 04/02/17 07:00 Pulse 104 H 04/02/17 09:10 Resp 18 04/02/17 07:00 BP 126/61 04/02/17 07:00 Pulse Ox 95 04/02/17 07:00 Intake & Output 04/01/17 04/02/17 04/02/17 18:59 06:59 18:59 Intake Total 818.5 994 973.333 Output Total 1350 600 Balance -531.5 994 373.333 Weight 90.6 kg 94 kg Intake: IV 108.5 419 0.9 at 20 ml/hr 230 Fat Emulsion 20% 250 ml 21 189 In Empty Bag 1 bag @ 21 mls/hr IV DAILY@1400 [facility] Rx#:[id number] Fluconazole in NaCl Iso- 50 Osm 100mg in Saline 1 50ml.bag @50mls/hr IVPB Daily Piperacillin-Tazobactam 3 37.5 .375 gm In Dextrose/Water 1 50ml.bag @ 12.5 mls/hr IVPB Q8HR [facility] Rx#: [id number] Intake, IV Titration 470 575 973.333 Amount Dextrose 5% in Water 1, 420 000 ml @ 70 mls/hr IV . [id number] [facility] Rx#:[id number] Mvi, Adult No.4 with Vit 50 575 973.333 K 10 ml Trace (Conc-1Ml/ Dose) 1 ml Potassium Acetate 30 meq Calcium Gluconate 1,000 mg In Amino Acid 5%-D15w 1,000 ml @ 50 mls/hr IV . [id number] [facility] Rx#:[id number] Oral 240 Output: Urine 750 600 Stool 600 Other: Voiding Method Indwelling Catheter Indwelling Catheter ABP, PAP, CO, CI - Last Documented Arterial Blood Pressure 146/54 - Labs CBC & Chem 7: 04/01/17 04:20 04/02/17 09:50 Labs: Abnormal Lab Results - Last 24 Hours (Table) 04/01/17 04/01/17 04/01/17 Range/Units 12:25 17:02 20:48 Chloride (98-107) mmol/L Carbon Dioxide (22-30) mmol/L BUN (9-20) mg/dL Creatinine (0.66-1.25) mg/dL Glucose (74-99) mg/dL POC Glucose (mg/dL) 208 H 211 H 239 H (75-99) mg/dL Calcium (8.4-10.2) mg/dL 04/02/17 04/02/17 04/02/17 Range/Units 01:57 07:16 09:50 Chloride 115 H (98-107) mmol/L Carbon Dioxide 17 L (22-30) mmol/L BUN 97 H* (9-20) mg/dL Creatinine 3.90 H (0.66-1.25) mg/dL Glucose 233 H (74-99) mg/dL POC Glucose (mg/dL) 261 H 246 H (75-99) mg/dL Calcium 8.1 L (8.4-10.2) mg/dL Assessment and Plan Plan: Assessment: #1. Nonoliguric acute kidney injury secondary to ischemic ATN secondary to hypotension and sepsis. Renal function a little improved with creatinine at 3.9 today. Also concern for ALLERGIC interstitial nephritis - urine eosinophils negative. Patient is still on IV vancomycin. #2. Perforated peptic ulcer status post exploratory laparotomy and open cholecystectomy on March 16. Upper GI study benign from 03/26. #3. Metabolic acidosis with respiratory compensation secondary to acute kidney injury. #4. Hypotension secondary to sepsis. Off vasopressors. Resolved. #5. Anemia of chronic kidney disease. Status post blood transfusion this admission. Hemoglobin 7.4 today. #6. Sepsis secondary to perforated ulcer and gangrenous cholecystitis. Sputum culture positive for MRSA. #7. 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 Etiology is likely diabetic kidney disease. #8. Hypernatremia secondary to diuresis and lack of oral water intake. #9. Hypokalemia secondary to poor nutritional status and renal potassium wasting. Magnesium replete. Improved. Plan: Continue oral sodium bicarbonate 1300 mg twice daily. Encourage oral intake. Decreased rate of D5W to 50 mL an hour. Hold Lasix. Antibiotics per infectious disease recommendations - now off vancomycin. Avoid nephrotoxic agents and hypotensive episodes. No urgent need for renal replacement therapy at this time. Maintain Aranesp.
[2017-04-02 11:11] LABS: Glucose,Whole Blood 250 mg/dL (75-99)
[2017-04-02] MEDS: DEXTROSE 5% IN WATER 1,000 ML IV SCH (12:55)
[2017-04-02] MEDS: DARBEPOETIN ALFA 40 MCG/0.4 ML SYRINGE SQ SCH (12:55)
--- NOTE | 2017-04-02 14:06 | P.PN ---
Subjective Progress note dated 03/31/2017 This is a 66-year-old male who was admitted way back on March 16. He initially came in with abdominal discomfort and had an open cholecystectomy expiratory laparotomy and repair of gastric ulcer. The patient has been here for quite some time. He's been here in the hospital for 15 days. Currently on 2 L nasal cannula. He is also sometimes on room air. Doesn't really need the oxygen. Also on IV at KVO. Insulin drip at 6 units per hour. Can be switched to NovoLog sliding scale. The patient down could be transferred transferred down to the general medical floor. We are going to DC the patient's insulin drip and put the patient on NovoLog sliding scale before meals and at bedtime. The patient's mostly not wearing oxygen therapy. Chest x-ray does show evidence of bilateral infiltrates consistent with fluid overload. Progress note dated 04/02/2017 66-year-old male admitted way back on March 16. He initially came into the hospital with abdominal pain and inability to open cholecystectomy exploratory laparotomy repair of gastric ulcer. The patient has a very julio c postoperative course. His been here in the hospital for a number days, 17 to be precise. The patient was on nasal O2. As been weaned off. The patient has an IV just which is just KVO. Was on an insulin drip. That's been discontinued. The patient was transferred out of the ICU down to the general medical floor. We' ll hoping that he can be discharged home or to a nursing rehab facility in the near future. He has no particular complaints today. No respiratory issues. Objective - Vital Signs Vital signs: Vital Signs Temp 98.6 F 04/02/17 07:00 Pulse 104 H 04/02/17 09:10 Resp 18 04/02/17 08:00 BP 126/61 04/02/17 07:00 Pulse Ox 95 04/02/17 07:00 Intake & Output 04/01/17 04/02/17 04/02/17 18:59 06:59 18:59 Intake Total 818.5 994 973.333 Output Total 1350 600 Balance -531.5 994 373.333 Weight 90.6 kg 94 kg Intake: IV 108.5 419 0.9 at 20 ml/hr 230 Fat Emulsion 20% 250 ml 21 189 In Empty Bag 1 bag @ 21 mls/hr IV DAILY@1400 [facility] Rx#:[id number] Fluconazole in NaCl Iso- 50 Osm 100mg in Saline 1 50ml.bag @50mls/hr IVPB Daily Piperacillin-Tazobactam 3 37.5 .375 gm In Dextrose/Water 1 50ml.bag @ 12.5 mls/hr IVPB Q8HR [facility] Rx#: [id number] Intake, IV Titration 470 575 973.333 Amount Dextrose 5% in Water 1, 420 000 ml @ 70 mls/hr IV . [id number] [facility] Rx#:[id number] Mvi, Adult No.4 with Vit 50 575 973.333 K 10 ml Trace (Conc-1Ml/ Dose) 1 ml Potassium Acetate 30 meq Calcium Gluconate 1,000 mg In Amino Acid 5%-D15w 1,000 ml @ 50 mls/hr IV . [id number] [facility] Rx#:[id number] Oral 240 Output: Urine 750 600 Stool 600 Other: Voiding Method Indwelling Catheter Indwelling Catheter Indwelling Catheter ABP, PAP, CO, CI - Last Documented Arterial Blood Pressure 146/54 - Exam No acute distress, oriented 3. HEENT examination is grossly unremarkable. Mucous membranes are moist. Neck supple. Full range of motion. No adenopathy or thyromegaly. Cardiovascular examination reveals regular rhythm rate. No S3-S4. No murmur. Lungs reveal few scattered rhonchi. Some mild bibasilar crackles. Abdomen soft bowel sounds are heard. Extremities reveal some edema. 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 Skin without rash. Neurologic examinations nonfocal. The patient is weak in all 4 extremities. - Labs CBC & Chem 7: 04/01/17 04:20 04/02/17 09:50 Labs: Abnormal Lab Results - Last 24 Hours (Table) 04/01/17 04/01/17 04/02/17 Range/Units 17:02 20:48 01:57 Chloride (98-107) mmol/L Carbon Dioxide (22-30) mmol/L BUN (9-20) mg/dL Creatinine (0.66-1.25) mg/dL Glucose (74-99) mg/dL POC Glucose (mg/dL) 211 H 239 H 261 H (75-99) mg/dL Calcium (8.4-10.2) mg/dL 04/02/17 04/02/17 04/02/17 Range/Units 07:16 09:50 11:09 Chloride 115 H (98-107) mmol/L Carbon Dioxide 17 L (22-30) mmol/L BUN 97 H* (9-20) mg/dL Creatinine 3.90 H (0.66-1.25) mg/dL Glucose 233 H (74-99) mg/dL POC Glucose (mg/dL) 246 H 250 H (75-99) mg/dL Calcium 8.1 L (8.4-10.2) mg/dL Assessment and Plan (1) Acute abdomen Status: Acute (2) History of exploratory laparotomy Status: Acute (3) Perforated peptic ulcer Status: Acute (4) Acute renal failure Status: Acute (5) Cholecystitis Status: Acute (6) Dehydration Status: Acute (7) Free intraperitoneal air Status: Acute (8) Gastric perforation Status: Acute (9) Septic shock Status: Acute (10) Anemia Status: Acute (11) COPD (chronic obstructive pulmonary disease) Status: Acute (12) Cellulitis of both feet Status: Acute (13) Diabetes Status: Acute (14) Hypothyroidism Status: Acute (15) Necrotizing soft tissue infection Status: Acute (16) Nicotine dependence Status: Acute (17) Systolic CHF, acute on chronic Status: Acute Plan: Plan dated 03/31/2017 We'll continue with supportive measures. We'll continue antibiotics. The patient may benefit some additional diuretics but will allow nephrology to decide about that. The patient's overall situation is still critical. Doing better today though. Insulin drip can be turned off in favor of NovoLog sliding scale before meals and at bedtime. The patient is not receiving any IV fluids. Mostly not on any oxygen. We'll encourage deep breathing coughing and clearing secretions as well as using the incentive spirometer. Does need some physical therapy and rehab. Probably be transferred to some sort of [place] [facility] facility eventually leaves the hospital. Diagnosis is guarded. Plan dated 04/02/2017. The patient's doing well from the pulmonary standpoint. His been weaned off of O2. The patient should continue with deep breathing coughing clearing of secretions. We'll continue with updrafts treatments. Hopeful discharge in the near fluid. The patient's essentially not receiving any fluids. We'll continue to follow closely. No additional recommendations are made. Time with Patient: Less than 30
[2017-04-02 17:07] LABS: Glucose,Whole Blood 212 mg/dL (75-99)
[2017-04-02] MEDS: FAT EMULSION 20% 250 ML in EMPTY BAG 1 BAG IV SCH (17:14)
--- NOTE | 2017-04-02 19:28 | P.PN ---
Subjective Principal diagnosis: Perforated peptic ulcer Patient doing well today. He says his energy is improved. He is tolerating his diet. Speech pathology is requesting a modified barium swallow. Objective - Vital Signs Vital signs: Vital Signs Temp 98.2 F 04/02/17 15:00 Pulse 108 H 04/02/17 16:00 Resp 18 04/02/17 16:00 BP 153/90 04/02/17 15:00 Pulse Ox 92 L 04/02/17 15:00 Intake & Output 04/02/17 04/02/17 04/03/17 06:59 18:59 06:59 Intake Total 994 973.333 Output Total 2100 Balance 994 -1126.667 Weight 94 kg Intake: IV 419 0.9 at 20 ml/hr 230 Fat Emulsion 20% 250 ml 189 In Empty Bag 1 bag @ 21 mls/hr IV DAILY@1400 [facility] Rx#:[id number] Intake, IV Titration 575 973.333 Amount Mvi, Adult No.4 with Vit 575 973.333 K 10 ml Trace (Conc-1Ml/ Dose) 1 ml Potassium Acetate 30 meq Calcium Gluconate 1,000 mg In Amino Acid 5%-D15w 1,000 ml @ 50 mls/hr IV . [id number] [facility] Rx#:[id number] Output: Urine 1500 Stool 600 Other: Voiding Method Indwelling Catheter Indwelling Catheter ABP, PAP, CO, CI - Last Documented Arterial Blood Pressure 146/54 - Exam Abdomen: Soft, nontender, nondistended, incision clean with small wick wounds unchanged - Labs CBC & Chem 7: 04/01/17 04:20 04/02/17 09:50 Labs: Abnormal Lab Results - Last 24 Hours (Table) 04/01/17 04/02/17 04/02/17 Range/Units 20:48 01:57 07:16 Chloride (98-107) mmol/L Carbon Dioxide (22-30) mmol/L BUN (9-20) mg/dL Creatinine (0.66-1.25) mg/dL Glucose (74-99) mg/dL POC Glucose (mg/dL) 239 H 261 H 246 H (75-99) mg/dL Calcium (8.4-10.2) mg/dL 04/02/17 04/02/17 04/02/17 Range/Units 09:50 11:09 17:06 Chloride 115 H (98-107) mmol/L Carbon Dioxide 17 L (22-30) mmol/L BUN 97 H* (9-20) mg/dL Creatinine 3.90 H (0.66-1.25) mg/dL Glucose 233 H (74-99) mg/dL POC Glucose (mg/dL) 250 H 212 H (75-99) mg/dL Calcium 8.1 L (8.4-10.2) mg/dL Assessment and Plan (1) Free intraperitoneal air Narrative/Plan: Will order a barium swallow conjunction with speech pathology. Continue PTOT. Status: Acute
[2017-04-02 19:55] LABS: Glucose,Whole Blood 221 mg/dL (75-99)
[2017-04-03] MEDS: DEXTROSE 5% IN WATER 1,000 ML IV SCH (00:02)
[2017-04-03 02:08] LABS: Glucose,Whole Blood 218 mg/dL (75-99)
[2017-04-03] MEDS: INSULIN LISPRO (humaLOG) 300 UNIT/3 ML VIAL SQ SCH ×5 (02:08→20:57)
[2017-04-03] MEDS: HYDROmorphone 1 MG/ML 1 ML SYRINGE IVP PRN ×3 (02:19→19:01)
[2017-04-03 07:32] LABS: Glucose,Whole Blood 242 mg/dL (75-99)
[2017-04-03] MEDS: IPRATROPIUM-ALBUTEROL 3 ML NEB INHALATION SCH ×4 (07:35→20:14)
[2017-04-03 07:59] LABS: Ionized Calcium 4.8 mg/dL (4.5-5.3)
[2017-04-03 08:12] LABS: Calcium 7.8 mg/dL (8.4-10.2); Magnesium 2.2 mg/dL (1.6-2.3); Phosphorous 4.7 mg/dL (2.5-4.5); Potassium 5.3 mmol/L (3.5-5.1)
[2017-04-03] MEDS: PIPERACILLIN-TAZOBACTAM 3.375 GM in DEXTROSE/WATER 1 50ML.BAG IVPB SCH ×2 (08:44→20:57)
[2017-04-03] MEDS: PANTOPRAZOLE 40 MG/10 ML VIAL IV SCH ×2 (08:44→20:57)
[2017-04-03] MEDS: HEPARIN SODIUM,PORCINE 5,000 UNIT/ML 1 ML VIAL SQ SCH ×3 (08:44→22:59)
[2017-04-03] MEDS: SODIUM BICARBONATE TAB 650 MG TAB PO SCH ×2 (08:45→20:57)
[2017-04-03] MEDS: [UNRECOGNIZED DRUG - REMARK] IV SCH ×5 (09:10)
--- NOTE | 2017-04-03 10:13 | P.PN ---
Subjective Patient is seen in follow-up for acute renal failure and metabolic acidosis. Renal function is also to improve his creatinine at 3.52 today. Patient is maintained on TPN. He is also now on nectar thick diet. He was extubated . Patient presented with a perforated peptic ulcer and underwent exploratory laparotomy and open cholecystectomy this admission. Diuretics were held starting March 31. He is nonoliguric. Patient does have underlying chronic kidney disease with creatinine in the range of 2.4-2.5 in July 2016. Off pressors. States he feels well. Sodium level is improved to 142. Vital signs are stable. General: Now extubated. HEENT: Head exam is unremarkable. Neck is without jugular venous distension. LUNGS: Scattered rhonchi. Breath sounds decreased. HEART: Rate and Rhythm are regular. First and second heart sounds normal. No murmurs, rubs or gallops. ABDOMEN: Bowel sounds present. EXTREMITITES: Trace edema. Left BKA noted. Objective - Vital Signs Vital signs: Vital Signs Temp 99.3 F 04/03/17 07:00 Pulse 112 H 04/03/17 08:00 Resp 18 04/03/17 08:00 BP 147/81 04/03/17 07:00 Pulse Ox 94 L 04/03/17 07:35 Intake & Output 04/02/17 04/03/17 04/03/17 18:59 06:59 18:59 Intake Total 973.325 972 5072 Output Total 2100 600 Balance -1126.667 -440 1036 Weight 95 kg 95 kg Intake: IV 160 0.9 at 20 ml/hr 160 Intake, IV Titration 810.786 0310 Amount Mvi, Adult No.4 with Vit 811.631 1353 K 10 ml Trace (Conc-1Ml/ Dose) 1 ml Potassium Acetate 30 meq Calcium Gluconate 1,000 mg In Amino Acid 5%-D15w 1,000 ml @ 50 mls/hr IV . [id number] [facility] Rx#:[id number] Output: Urine 1500 600 Stool 600 Other: Voiding Method Indwelling Catheter Indwelling Catheter Indwelling Catheter ABP, PAP, CO, CI - Last Documented Arterial Blood Pressure 146/54 - Labs CBC & Chem 7: 04/01/17 04:20 04/03/17 07:25 Labs: Abnormal Lab Results - Last 24 Hours (Table) 04/02/17 04/02/17 04/02/17 Range/Units 09:50 11:09 17:06 Potassium (3.5-5.1) mmol/L Chloride 115 H (98-107) mmol/L Carbon Dioxide 17 L (22-30) mmol/L BUN 97 H* (9-20) mg/dL Creatinine 3.90 H (0.66-1.25) mg/dL Glucose 233 H (74-99) mg/dL POC Glucose (mg/dL) 250 H 212 H (75-99) mg/dL Calcium 8.1 L (8.4-10.2) mg/dL Phosphorus (2.5-4.5) mg/dL 04/02/17 04/03/17 04/03/17 Range/Units 19:54 02:07 07:25 Potassium 5.3 H (3.5-5.1) mmol/L Chloride 113 H (98-107) mmol/L Carbon Dioxide 18 L (22-30) mmol/L BUN 92 H* (9-20) mg/dL Creatinine 3.52 H (0.66-1.25) mg/dL Glucose 240 H (74-99) mg/dL POC Glucose (mg/dL) 221 H 218 H (75-99) mg/dL Calcium 7.8 L (8.4-10.2) mg/dL Phosphorus 4.7 H (2.5-4.5) mg/dL 04/03/17 Range/Units 07:30 Potassium (3.5-5.1) mmol/L Chloride (98-107) mmol/L Carbon Dioxide (22-30) mmol/L BUN (9-20) mg/dL Creatinine (0.66-1.25) mg/dL Glucose (74-99) mg/dL POC Glucose (mg/dL) 242 H (75-99) mg/dL Calcium (8.4-10.2) mg/dL Phosphorus (2.5-4.5) mg/dL Assessment and Plan Plan: Assessment: #1. Nonoliguric acute kidney injury secondary to ischemic ATN secondary to hypotension and sepsis. Renal function a little improved with creatinine at 3.52 today. Also concern for ALLERGIC interstitial nephritis - urine eosinophils negative. Patient is still on IV vancomycin. #2. Perforated peptic ulcer status post exploratory laparotomy and open cholecystectomy on March 16. Upper GI study benign from 03/26. #3. Metabolic acidosis with respiratory compensation secondary to acute kidney injury. #4. Hypotension secondary to sepsis. Off vasopressors. Resolved. #5. Anemia of chronic kidney disease. Status post blood transfusion this admission. #6. Sepsis secondary to perforated ulcer and gangrenous cholecystitis. Sputum culture positive for MRSA. #7. 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 Etiology is likely diabetic kidney disease. #8. Hypernatremia secondary to diuresis and lack of oral water intake. #9. Hypokalemia secondary to poor nutritional status and renal potassium wasting. Magnesium replete. Improved. Now potassium on the higher side which is due to hyperglycemia as well as metabolic acidosis. Plan: Continue oral sodium bicarbonate 1300 mg twice daily. Encourage oral intake. Decreased rate of D5W to 50 mL an hour. Hold Lasix. Antibiotics per infectious disease recommendations. Avoid nephrotoxic agents and hypotensive episodes. No urgent need for renal replacement therapy at this time. Maintain Aranesp. Reduce potassium content in TPN.
--- NOTE | 2017-04-03 12:23 | P.PN ---
Subjective Progress note dated 03/31/2017 This is a 66-year-old male who was admitted way back on March 16. He initially came in with abdominal discomfort and had an open cholecystectomy expiratory laparotomy and repair of gastric ulcer. The patient has been here for quite some time. He's been here in the hospital for 15 days. Currently on 2 L nasal cannula. He is also sometimes on room air. Doesn't really need the oxygen. Also on IV at KVO. Insulin drip at 6 units per hour. Can be switched to NovoLog sliding scale. The patient down could be transferred transferred down to the general medical floor. We are going to DC the patient's insulin drip and put the patient on NovoLog sliding scale before meals and at bedtime. The patient's mostly not wearing oxygen therapy. Chest x-ray does show evidence of bilateral infiltrates consistent with fluid overload. Progress note dated 04/02/2017 66-year-old male admitted way back on March 16. He initially came into the hospital with abdominal pain and inability to open cholecystectomy exploratory laparotomy repair of gastric ulcer. The patient has a very julio c postoperative course. His been here in the hospital for a number days, 17 to be precise. The patient was on nasal O2. As been weaned off. The patient has an IV just which is just KVO. Was on an insulin drip. That's been discontinued. The patient was transferred out of the ICU down to the general medical floor. We' ll hoping that he can be discharged home or to a nursing rehab facility in the near future. He has no particular complaints today. No respiratory issues. Progress note dated 04/03/2017 66-year-old male admitted way back on 03/16/2017. He initially came to the hospital with abdominal pain and underwent a open cholecystectomy exploratory laparotomy and repair of gastric/peptic ulcer. The patient had a very julio c postoperative course. He's been in the hospital for a number of days, exactly 18. From the pulmonary standpoint he is doing well. His been weaned off of nasal O2. He does have an IV in place. Was on an insulin drip. As been discontinued. The patient may be discharged in the near future by the primary service. He wants to go to [facility] the [facility]. I'm not sure they' re planning to send him. The patient otherwise is fine. Denies any chest tightness wheezing coughing phlegm production fever chills nausea vomiting or diarrhea. Objective - Vital Signs Vital signs: Vital Signs Temp 99.3 F 04/03/17 07:00 Pulse 103 H 04/03/17 11:29 Resp 18 04/03/17 08:00 BP 147/81 04/03/17 07:00 Pulse Ox 94 L 04/03/17 07:35 Intake & Output 04/02/17 04/03/17 04/03/17 18:59 06:59 18:59 Intake Total 973.658 638 8499 Output Total 2100 600 Balance -1126.667 -440 1036 Weight 95 kg 95 kg Intake: IV 160 0.9 at 20 ml/hr 160 Intake, IV Titration 707.332 1093 Amount Mvi, Adult No.4 with Vit 437.651 1590 K 10 ml Trace (Conc-1Ml/ Dose) 1 ml Potassium Acetate 30 meq Calcium Gluconate 1,000 mg In Amino Acid 5%-D15w 1,000 ml @ 50 mls/hr IV . [id number] [facility] Rx#:[id number] Output: Urine 1500 600 Stool 600 Other: Voiding Method Indwelling Catheter Indwelling Catheter Indwelling Catheter ABP, PAP, CO, CI - Last Documented Arterial Blood Pressure 146/54 - Exam No acute distress, oriented 3. HEENT examination is grossly unremarkable. Mucous membranes are moist. Neck supple. Full range of motion. No adenopathy or thyromegaly. Cardiovascular examination reveals regular rhythm rate. No S3-S4. No murmur. Lungs reveal clear breath sounds. No wheezes. No rhonchi. No crackles. The patient has been weaned off of oxygen. Abdomen soft bowel sounds are heard. Extremities reveal some edema. 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 Skin without rash. Neurologic examinations nonfocal. The patient is weak in all 4 extremities. - Labs CBC & Chem 7: 04/01/17 04:20 04/03/17 07:25 Labs: Abnormal Lab Results - Last 24 Hours (Table) 04/02/17 04/02/17 04/03/17 Range/Units 17:06 19:54 02:07 Potassium (3.5-5.1) mmol/L Chloride (98-107) mmol/L Carbon Dioxide (22-30) mmol/L BUN (9-20) mg/dL Creatinine (0.66-1.25) mg/dL Glucose (74-99) mg/dL POC Glucose (mg/dL) 212 H 221 H 218 H (75-99) mg/dL Calcium (8.4-10.2) mg/dL Phosphorus (2.5-4.5) mg/dL 04/03/17 04/03/17 Range/Units 07:25 07:30 Potassium 5.3 H (3.5-5.1) mmol/L Chloride 113 H (98-107) mmol/L Carbon Dioxide 18 L (22-30) mmol/L BUN 92 H* (9-20) mg/dL Creatinine 3.52 H (0.66-1.25) mg/dL Glucose 240 H (74-99) mg/dL POC Glucose (mg/dL) 242 H (75-99) mg/dL Calcium 7.8 L (8.4-10.2) mg/dL Phosphorus 4.7 H (2.5-4.5) mg/dL Assessment and Plan (1) Acute abdomen Status: Acute (2) History of exploratory laparotomy Status: Acute (3) Perforated peptic ulcer Status: Acute (4) Acute renal failure Status: Acute (5) Cholecystitis Status: Acute (6) Dehydration Status: Acute (7) Free intraperitoneal air Status: Acute (8) Gastric perforation Status: Acute (9) Septic shock Status: Acute (10) Anemia Status: Acute (11) COPD (chronic obstructive pulmonary disease) Status: Acute (12) Cellulitis of both feet Status: Acute (13) Diabetes Status: Acute (14) Hypothyroidism Status: Acute (15) Necrotizing soft tissue infection Status: Acute (16) Nicotine dependence Status: Acute (17) Systolic CHF, acute on chronic Status: Acute Plan: Plan dated 03/31/2017 We'll continue with supportive measures. We'll continue antibiotics. The patient may benefit some additional diuretics but will allow nephrology to decide about that. The patient's overall situation is still critical. Doing better today though. Insulin drip can be turned off in favor of NovoLog sliding scale before meals and at bedtime. The patient is not receiving any IV fluids. Mostly not on any oxygen. We'll encourage deep breathing coughing and clearing secretions as well as using the incentive spirometer. Does need some physical therapy and rehab. Probably be transferred to some sort of shelter eventually leaves the hospital. Diagnosis is guarded. Plan dated 04/02/2017. The patient's doing well from the pulmonary standpoint. His been weaned off of O2. The patient should continue with deep breathing coughing clearing of secretions. We'll continue with updrafts treatments. Hopeful discharge in the near fluid. The patient's essentially not receiving any fluids. We'll continue to follow closely. No additional recommendations are made. Plan dated 04/03/2017 From the pulmonary standpoint, the patient's doing well. The patient has been weaned off of oxygen. We recommend deep breathing coughing and clearing secretions and continue use of the incentive spirometer every hour. The patient 's hoping to be discharged to [facility] in the [facility]. We'll leave that up to the primary service. No discharge recommendations are made. We'll continue to follow. Prognosis is guarded given his very prolonged hospitalization is very julio c postoperative course. Time with Patient: Less than 30
--- NOTE | 2017-04-03 12:24 | FL ---
EXAMINATION TYPE: FL barium swallow w video DATE OF EXAM: 04/03/2017 MODIFIED SWALLOW / DEGLUTITION STUDY CLINICAL HISTORY: Dysphagia. TECHNIQUE: Deglutition study is performed utilizing thin liquid barium, barium thick applesauce, and barium coated cracker. COMPARISON: None. FINDINGS: The oral and pharyngeal phases show satisfactory initiation and propagation with all modali ties tested. Normal mastication is seen with solid modalities tested. There is no evidence of aspir ation with any modality tested. Pharyngeal residue was appreciated with all consistencies. Intermitt ent penetration was seen with the thin liquid barium consistency. IMPRESSION: Intermittent penetration with the thin consistency and pharyngeal retention with all cons istencies. Please refer to speech therapist notes for further details if necessary.
[2017-04-03 12:35] LABS: Glucose,Whole Blood 278 mg/dL (75-99)
--- NOTE | 2017-04-03 15:28 | P.PN ---
Subjective Principal diagnosis: Perforated peptic ulcer Patient doing well today. He underwent a swallow evaluation earlier today. Per the nursing staff swallow evaluation suggested his diet could be advanced further. Denies pain. Objective - Vital Signs Vital signs: Vital Signs Temp 99.2 F 04/03/17 15:00 Pulse 111 H 04/03/17 15:00 Resp 18 04/03/17 15:00 BP 151/83 04/03/17 15:00 Pulse Ox 94 L 04/03/17 15:00 Intake & Output 04/02/17 04/03/17 04/03/17 18:59 06:59 18:59 Intake Total 973.459 689 6628 Output Total 2100 600 600 Balance -1126.667 -440 496 Weight 95 kg 95 kg Intake: IV 160 0.9 at 20 ml/hr 160 Intake, IV Titration 162.752 1491 Amount Mvi, Adult No.4 with Vit 675.463 0599 K 10 ml Trace (Conc-1Ml/ Dose) 1 ml Potassium Acetate 30 meq Calcium Gluconate 1,000 mg In Amino Acid 5%-D15w 1,000 ml @ 50 mls/hr IV . [id number] [facility] Rx#:[id number] Oral 60 Output: Urine 1500 600 Stool 600 600 Other: Voiding Method Indwelling Catheter Indwelling Catheter Indwelling Catheter ABP, PAP, CO, CI - Last Documented Arterial Blood Pressure 146/54 - Exam Abdomen: Soft, nondistended, nontender, incision clean, wick wounds unchanged - Labs CBC & Chem 7: 04/01/17 04:20 04/03/17 07:25 Labs: Abnormal Lab Results - Last 24 Hours (Table) 04/02/17 04/02/17 04/03/17 Range/Units 17:06 19:54 02:07 Potassium (3.5-5.1) mmol/L Chloride (98-107) mmol/L Carbon Dioxide (22-30) mmol/L BUN (9-20) mg/dL Creatinine (0.66-1.25) mg/dL Glucose (74-99) mg/dL POC Glucose (mg/dL) 212 H 221 H 218 H (75-99) mg/dL Calcium (8.4-10.2) mg/dL Phosphorus (2.5-4.5) mg/dL 04/03/17 04/03/17 04/03/17 Range/Units 07:25 07:30 12:22 Potassium 5.3 H (3.5-5.1) mmol/L Chloride 113 H (98-107) mmol/L Carbon Dioxide 18 L (22-30) mmol/L BUN 92 H* (9-20) mg/dL Creatinine 3.52 H (0.66-1.25) mg/dL Glucose 240 H (74-99) mg/dL POC Glucose (mg/dL) 242 H 278 H (75-99) mg/dL Calcium 7.8 L (8.4-10.2) mg/dL Phosphorus 4.7 H (2.5-4.5) mg/dL Assessment and Plan (1) Free intraperitoneal air Narrative/Plan: Will advance diet to soft. We'll consult the hospitalist service. Continue antiacids. Continue PTOT. Discharge planning in progress. Status: Acute
[2017-04-03] MEDS: FAT EMULSION 20% 250 ML in EMPTY BAG 1 BAG IV SCH (16:19)
[2017-04-03 17:09] LABS: Glucose,Whole Blood 239 mg/dL (75-99)
[2017-04-03 20:27] LABS: Glucose,Whole Blood 182 mg/dL (75-99)
--- NOTE | 2017-04-03 20:59 | P.PN ---
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 [facility] most recently under the care of Dr. Gordon and discharged in August 2016 after a dehiscence of the right below the knee wound healed. Patient presented to [facility] emergency center on March 16 with generalized weakness and abdominal pain for at least couple days up to 1 week with concerns for constipation and was taking laxatives with no improvement. Patient also had decreased appetite and pain was gradually worsening. There was nausea without vomiting. Chest x-ray showed pneumoperitoneum and left basilar atelectasis with no heart failure. Abdominal films also showed pneumoperitoneum. CAT scan of the abdomen and pelvis without contrast and was found have a large pneumoperitoneum, large ascites, large nonobstructive right renal calculi and possible gallbladder thickening with concern for gangrenous gallbladder. Patient was taken to the OR by Dr. Wiley for exploratory laparotomy with repair of perforated peptic ulcer and open cholecystectomy. Patient was then transferred to the intensive care unit where he remains intubated and on mechanical ventilation. Patient presented with severe sepsis and septic shock status post 7 1/2 liters of fluid currently on levo at 20 mics. He did not have a urine output for the day shift thus far. O2 needs have decreased however. He is currently on IV antimicrobials in the form of fluconazole, Flagyl and Zosyn. Blood cultures status received and urine culture status received. C. difficile toxin was negative. Patient is noted to have a stage II decubitus ulcer on his buttocks that was present on admission. acute renal failure improving Patient is awake and comfortable. Feeling better each day. Objective - Vital Signs Vital signs: Vital Signs Temp 98.8 F 04/03/17 17:45 Pulse 104 H 04/03/17 20:37 Resp 18 04/03/17 15:00 BP 151/83 04/03/17 15:00 Pulse Ox 95 04/03/17 16:44 Intake & Output 04/03/17 04/03/17 04/04/17 06:59 18:59 06:59 Intake Total 160 1096 Output Total 600 1525 Balance -440 -429 Weight 95 kg 95 kg Intake: IV 160 0.9 at 20 ml/hr 160 Intake, IV Titration 1036 Amount Mvi, Adult No.4 with Vit 1036 K 10 ml Trace (Conc-1Ml/ Dose) 1 ml Potassium Acetate 30 meq Calcium Gluconate 1,000 mg In Amino Acid 5%-D15w 1,000 ml @ 50 mls/hr IV . [id number] [facility] Rx#:[id number] Oral 60 Output: Urine 600 925 Uretheral (Castellanos) 475 Stool 600 Other: Voiding Method Indwelling Catheter Indwelling Catheter ABP, PAP, CO, CI - Last Documented Arterial Blood Pressure 146/54 - Exam Gen: This is an obese 66-year-old male. He is seen in the ICU, he has been extubated. Patient appears comfortable and in no acute distress. HEENT: Head is atraumatic, normocephalic. Oral ET and gastric tube in place. White coating noted on the tongue. Mucous membranes are slightly dry.. NECK: Supple. No JVD. No lymphadenopathy. Trachea midline. LUNGS: There is symmetrical air entry bilaterally. Coarse crackles are scattered the lung kraft. Subtly improved when he coughs. Scattered wheezes are also heard. HEART: Regular rate and rhythm. No murmur. Patient is tachycardic. ABDOMEN: Soft. Bowel sounds are not present. No masses. No tenderness. LOUISA drain to the right upper abdomen is draining serosanguineous fluid. Dressing to the right upper quadrant and midline are in place with no breakthrough drainage or bleeding. Castellanos catheter in place draining clear pinky urine. EXTREMITIES: No pedal edema to the left lower extremity. Patient has amputations of toes 2 through 5 on the left and a right below the knee amputation. All extremities are cool to the touch. No mottling noted. NEUROLOGICAL: Patient awake alert no acute deficits - Labs CBC & Chem 7: 04/01/17 04:20 04/03/17 07:25 Labs: Abnormal Lab Results - Last 24 Hours (Table) 04/03/17 04/03/17 04/03/17 Range/Units 02:07 07:25 07:30 Potassium 5.3 H (3.5-5.1) mmol/L Chloride 113 H (98-107) mmol/L Carbon Dioxide 18 L (22-30) mmol/L BUN 92 H* (9-20) mg/dL Creatinine 3.52 H (0.66-1.25) mg/dL Glucose 240 H (74-99) mg/dL POC Glucose (mg/dL) 218 H 242 H (75-99) mg/dL Calcium 7.8 L (8.4-10.2) mg/dL Phosphorus 4.7 H (2.5-4.5) mg/dL 04/03/17 04/03/17 04/03/17 Range/Units : 17:07 20:18 Potassium (3.5-5.1) mmol/L Chloride (98-107) mmol/L Carbon Dioxide (22-30) mmol/L BUN (9-20) mg/dL Creatinine (0.66-1.25) mg/dL Glucose (74-99) mg/dL POC Glucose (mg/dL) 278 H 239 H 182 H (75-99) mg/dL Calcium (8.4-10.2) mg/dL Phosphorus (2.5-4.5) mg/dL Laboratory Results WBC 14.6 k/uL (3.8-10.6) H 04/01/17 04:20 RBC 2.65 m/uL (4.30-5.90) L 04/01/17 04:20 Hgb 7.4 gm/dL (13.0-17.5) L 04/01/17 04:20 Hct 24.4 % (39.0-53.0) L 04/01/17 04:20 MCV 92.3 fL (80.0-100.0) 04/01/17 04:20 MCH 27.9 pg (25.0-35.0) 04/01/17 04:20 MCHC 30.3 g/dL (31.0-37.0) L 04/01/17 04:20 RDW 14.8 % (11.5-15.5) 04/01/17 04:20 Plt Count 488 k/uL (150-450) H 04/01/17 04:20 Neutrophils % 80 % 04/01/17 04:20 Neutrophils % (Manual) 61.6 % 03/17/17 04:20 Band Neutrophils % 15.2 % 03/17/17 04:20 Lymphocytes % 10 % 04/01/17 04:20 Lymphocytes % (Manual) 18.2 % 03/17/17 04:20 Monocytes % 5 % 04/01/17 04:20 Monocytes % (Manual) 5.1 % 03/17/17 04:20 Eosinophils % 1 % 04/01/17 04:20 Basophils % 1 % 04/01/17 04:20 Metamyelocytes % 4.0 % 03/16/17 22:50 Neutrophils # 11.7 k/uL (1.3-7.7) H 04/01/17 04:20 Neutrophils # (Manual) 7.1 k/uL (1.3-7.7) 03/17/17 04:20 Lymphocytes # 1.4 k/uL (1.0-4.8) 04/01/17 04:20 Lymphocytes # (Manual) 1.7 k/uL (1.0-4.8) 03/17/17 04:20 Monocytes # 0.8 k/uL (0-1.0) 04/01/17 04:20 Monocytes # (Manual) 0.5 k/uL (0-1.0) 03/17/17 04:20 Eosinophils # 0.2 k/uL (0-0.7) 04/01/17 04:20 Basophils # 0.1 k/uL (0-0.2) 04/01/17 04:20 Nucleated RBCs 0 /100 WBC (0-0) 03/17/17 04:20 Manual Slide Review Performed 03/17/17 04:20 Toxic Granulation Present 03/16/17 16:30 RBC Morphology Normal 03/16/17 16:30 Hypochromasia Moderate 04/01/17 04:20 Anisocytosis Slight 03/27/17 03:39 PT 10.4 sec (9.0-12.0) 03/16/17 16:30 INR 1.0 (<1.2) 03/16/17 16:30 APTT 22.1 sec (22.0-30.0) 03/16/17 16:30 Sample Site [place] 03/22/17 11:43 ABG pH 7.35 (7.35-7.45) 03/22/17 11:43 ABG pCO2 25 mmHg (35-45) L 03/22/17 11:43 ABG pO2 165 mmHg (83-108) H 03/22/17 11:43 ABG HCO3 13 mmol/L (21-25) L 03/22/17 11:43 ABG Total CO2 14 mmol/L (19-24) L 03/22/17 11:43 ABG O2 Saturation 99.0 % (94-97) H 03/22/17 11:43 ABG Base Excess -11.1 mmol/L 03/22/17 11:43 ABG Hematocrit 29 % (34.0-46.0) L 03/16/17 21:12 ABG Lactic Acid 0.7 mmol/L (0.5-1.6) 03/20/17 04:45 VBG pH 7.25 (7.31-7.41) L 03/16/17 16:30 VBG pCO2 29 mmHg (37-51) L 03/16/17 16:30 VBG HCO3 12 mmol/L (24-28) L 03/16/17 16:30 FiO2 40 % 03/22/17 11:43 Sodium 142 mmol/L (137-145) 04/03/17 07:25 Potassium 5.3 mmol/L (3.5-5.1) H 04/03/17 07:25 Chloride 113 mmol/L (98-107) H 04/03/17 07:25 Carbon Dioxide 18 mmol/L (22-30) L 04/03/17 07:25 Anion Gap 11 mmol/L 04/03/17 07:25 BUN 92 mg/dL (9-20) H* 04/03/17 07:25 Creatinine 3.52 mg/dL (0.66-1.25) H 04/03/17 07:25 Est GFR (MDRD) Af Amer 21 (>60 ml/min/1.73 sqM) 04/03/17 07:25 Est GFR (MDRD) Non-Af 18 (>60 ml/min/1.73 sqM) 04/03/17 07:25 Glucose 240 mg/dL (74-99) H 04/03/17 07:25 POC Glucose (mg/dL) 182 mg/dL (75-99) H 04/03/17 20:18 POC Glu Marketing Program Coordinator ID Silvia Chau 04/03/17 20:[address] Glu mg/dL 174 mg/dL 03/17/17 04:20 Hemoglobin A1c 7.7 % (4.2-6.1) H 03/17/17 04:20 Lactic Ac Sepsis Rflx Y 03/16/17 16:57 Plasma Lactic Acid Mario 2.8 mmol/L (0.7-2.0) H* 03/16/17 22:42 Calcium 7.8 mg/dL (8.4-10.2) L 04/03/17 07:25 Ionized Calcium Valorie 4.8 mg/dL (4.5-5.3) 04/03/17 07:25 Phosphorus 4.7 mg/dL (2.5-4.5) H 04/03/17 07:25 Magnesium 2.2 mg/dL (1.6-2.3) 04/03/17 07:25 Total Bilirubin 1.5 mg/dL (0.2-1.3) H 03/20/17 11:36 AST 19 U/L (17-59) 03/20/17 11:36 ALT 28 U/L (21-72) 03/20/17 11:36 Alkaline Phosphatase 60 U/L (38-126) 03/20/17 11:36 Total Creatine Kinase 216 U/L (55-170) H 03/16/17 16:30 CK-MB (CK-2) 2.9 ng/mL (0.0-2.4) H* 03/16/17 16:30 CK-MB (CK-2) Rel Index 1.3 03/16/17 16:30 Troponin I 0.590 ng/mL (0.000-0.034) H* 03/16/17 16:30 Total Protein 3.4 g/dL (6.3-8.2) L 03/20/17 11:36 Albumin 1.9 g/dL (3.5-5.0) L 03/27/17 03:39 Triglycerides 142 mg/dL (<150) 03/27/17 03:39 TSH 0.672 mIU/L (0.465-4.680) 03/16/17 16:30 Urine Color Yellow 03/31/17 10:20 Urine Appearance Turbid (Clear) 03/31/17 10:20 Urine pH 5.0 (5.0-8.0) 03/31/17 10:20 Ur Specific [place] 1.015 (1.001-1.035) 03/31/17 10:20 Urine Protein 1+ (Negative) H 03/31/17 10:20 Urine Glucose (UA) Negative (Negative) 03/31/17 10:20 Urine Ketones Negative (Negative) 03/31/17 10:20 Urine Blood Small (Negative) H 03/31/17 10:20 Urine Nitrite Negative (Negative) 03/31/17 10:20 Urine Bilirubin Negative (Negative) 03/31/17 10:20 Urine Urobilinogen <2.0 mg/dL (<2.0) 03/31/17 10:20 Ur Leukocyte Esterase Small (Negative) H 03/31/17 10:20 Urine RBC 4 /hpf (0-5) 03/31/17 10:20 Urine WBC 9 /hpf (0-5) H 03/31/17 10:20 Amorphous Sediment Rare /hpf (None) H 03/31/17 10:20 Hyaline Casts 12 /lpf (0-2) H 03/31/17 10:20 Granular Casts 2 /lpf (0) 03/31/17 10:20 Urine Mucus Rare /hpf (None) H 03/31/17 10:20 Urine Eosinophils 0 % 03/31/17 10:20 Random Vancomycin 13.8 ug/mL 04/02/17 06:30 C. difficile (EIA) Intrp Negative (Negative) 03/28/17 15:06 Blood Type A Positive 03/28/17 10:58 Blood Type Recheck No 03/28/17 10:58 Antibody Screen NEGATIVE 03/28/17 10:58 Crossmatch See Detail 03/28/17 10:58 Spec Expiration Date 03/31/2017 8397 03/28/17 10:58 Microbiology 03/23/17 08:00 Peritoneal Fluid Gram Stain - Final 03/23/17 08:00 Peritoneal Fluid Body Fluid Culture - Final 03/16/17 16:30 Blood Blood Culture - Final No Growth after 144 hours 03/18/17 02:25 Sputum Gram Stain - Final 03/18/17 02:25 Sputum Sputum Culture - Final Methicillin resist S. aureus 03/16/17 19:00 Urine,Voided Urine Culture - Final Assessment and Plan (1) Septic shock Narrative/Plan: 66-year-old male with multiple medical troubles with left toe amputations and right below-knee amputation due to his severe peripheral vascular disease. Now presents with a significant bout of sepsis from the abdomen. Has evidence of pneumoperitoneum. Perforated gastric ulcer was noted. As well as gangrenous cholecystitis. He's had the surgical incision is noted. Now improving from his septic shock. For sepsis from the abdominal source in the condition of the perforation and gangrenous cholecystitis was initially treated with antifungal therapy with fluconazole. Piperacillin tazobactam is being dosed per his renal failure. Has a history of MRSA as well as VRE infection. Daptomycin was being utilized. However MRSA was found in the pulmonary secretions. Was changed to vancomycin and that no VRE has now been isolated from his abdominal cultures. Concerns related to his acute renal failure. Will be monitored closely. Cultures are in process. Supportive care continues. Doing well is awake and comfortable. Not complaining of abdominal pain. Will complete his vancomycin therapy tomorrow for treatment of his MRSA pneumonia. As far as Zosyn therapy. He still has significant leukocytosis. If that resolves within consider discontinuation of Zosyn at that time. Status: Acute (2) Gastric perforation Status: Acute (3) Cholecystitis Status: Acute
[2017-04-03] MEDS ORDERED: ACETAMINOPHEN TAB 325 MG TAB PO PRN (23:17)
[2017-04-04 00:02] LABS: Amorphous Sediment,Urine Occasional /hpf; Appearance,Urine Cloudy (Clear); Bacteria,Urine Rare /hpf; Bilirubin,Urine Negative (Negative); Glucose,Urine (UA) Negative (Negative); Ketones,Urine Negative (Negative); Leukocyte Esterase,Urine Small (Negative); Mucus,Urine Rare /hpf; Nitrite,Urine Negative (Negative); PH, Urine 5.5 (5.0-8.0); Particle Count 18216; Protein,Urine 1+ (Negative); RBC,Urine 5 /hpf (0-5); Specific Gravity,Urine 1.014 (1.001-1.035); Squamous Epithelial Cell,Urine 2 /hpf (0-4); UA Billing (MACRO vs. MICRO) MICRO; Urobilinogen,Urine <2.0 mg/dL (<2.0); WBC,Urine 9 /hpf (0-5)
[2017-04-04 02:11] LABS: Glucose,Whole Blood 223 mg/dL (75-99)
[2017-04-04] MEDS: INSULIN LISPRO (humaLOG) 300 UNIT/3 ML VIAL SQ SCH ×5 (02:15→22:03)
[2017-04-04] MEDS: DEXTROSE 5% IN WATER 1,000 ML IV SCH ×2 (02:16→15:02)
[2017-04-04] MEDS ORDERED: MVI, ADULT NO.4 WITH VIT K 10 ML, TRACE (CONC-1ML/DOSE) 1 ML, POTASSIUM ACETATE 20 MEQ,... IV SCH ×5 (04:00)
[2017-04-04] MEDS: IPRATROPIUM-ALBUTEROL 3 ML NEB INHALATION SCH ×4 (07:25→19:31)
[2017-04-04] MEDS: IOHEXOL 350 MG/ML 25 ML BOTTLE (ORAL USE) PO PRN ×2 (07:40→08:45)
[2017-04-04] MEDS: HYDROcodone/APAP 7.5-325MG 1 EACH TAB PO PRN ×2 (07:40→19:25)
[2017-04-04 07:52] LABS: Glucose,Whole Blood 277 mg/dL (75-99)
[2017-04-04] MEDS: HYDROmorphone 1 MG/ML 1 ML SYRINGE IVP PRN ×2 (07:57→11:25)
[2017-04-04] MEDS: PIPERACILLIN-TAZOBACTAM 3.375 GM in DEXTROSE/WATER 1 50ML.BAG IVPB SCH (08:07)
[2017-04-04] MEDS: PANTOPRAZOLE 40 MG/10 ML VIAL IV SCH ×2 (08:07→22:02)
[2017-04-04 08:24] LABS: Ionized Calcium 4.8 mg/dL (4.5-5.3)
[2017-04-04 08:36] LABS: Calcium 7.9 mg/dL (8.4-10.2); Magnesium 2.3 mg/dL (1.6-2.3); Phosphorous 5.2 mg/dL (2.5-4.5); Potassium 5.1 mmol/L (3.5-5.1)
--- NOTE | 2017-04-04 09:36 | P.PN ---
Subjective Principal diagnosis: Perforated peptic ulcer Patient had a fever last night of 100.7. No seen in change in symptoms however. Occasionally complains of mild abdominal discomfort. Does not want allotted for the pain. Was switched to [place]. Cultures were obtained last night. Morning CBC is pending. CAT scan was performed this morning which reveals a few areas of fluid within the abdomen. Perisplenic collection, perigastric collection, pelvic collection all noted. Fluid appeared somewhat simple in nature without thickened capsule. No free air is seen. No extravasation of contrast. Extensive edema noted. Objective - Vital Signs Vital signs: Vital Signs Temp 98.9 F 04/04/17 06:55 Pulse 104 H 04/04/17 06:55 Resp 18 04/04/17 06:55 BP 152/84 04/04/17 06:55 Pulse Ox 93 L 04/03/17 22:00 Intake & Output 04/03/17 04/04/17 04/04/17 18:59 06:59 18:59 Intake Total 1096 379 Output Total 1525 1650 Balance -429 -1271 Weight 95 kg 95 kg Intake: IV 229 Fat Emulsion 20% 250 ml 229 In Empty Bag 1 bag @ 21 mls/hr IV DAILY@1400 [facility] Rx#:[id number] Intake, IV Titration 1036 150 Amount Mvi, Adult No.4 with Vit 150 K 10 ml Trace (Conc-1Ml/ Dose) 1 ml Potassium Acetate 20 meq Calcium Gluconate 1,000 mg In Amino Acid 5%-D15w 1,000 ml @ 50 mls/hr IV . [id number] [facility] Rx#:[id number] Mvi, Adult No.4 with Vit 1036 K 10 ml Trace (Conc-1Ml/ Dose) 1 ml Potassium Acetate 30 meq Calcium Gluconate 1,000 mg In Amino Acid 5%-D15w 1,000 ml @ 50 mls/hr IV . [id number] [facility] Rx#:[id number] Oral 60 Output: Urine 925 450 Uretheral (Castellanos) 475 Stool 600 1200 Other: Voiding Method Indwelling Catheter Indwelling Catheter ABP, PAP, CO, CI - Last Documented Arterial Blood Pressure 146/54 - Exam Abdomen: Soft, nondistended, nontender, incision clean, wick wounds unchanged - Labs CBC & Chem 7: 04/01/17 04:20 04/04/17 07:41 Labs: Abnormal Lab Results - Last 24 Hours (Table) 04/03/17 04/03/17 04/03/17 Range/Units 12:22 17:07 20:18 Chloride (98-107) mmol/L Carbon Dioxide (22-30) mmol/L BUN (9-20) mg/dL Creatinine (0.66-1.25) mg/dL Glucose (74-99) mg/dL POC Glucose (mg/dL) 278 H 239 H 182 H (75-99) mg/dL Calcium (8.4-10.2) mg/dL Phosphorus (2.5-4.5) mg/dL Urine Protein (Negative) Urine Blood (Negative) Ur Leukocyte Esterase (Negative) Urine WBC (0-5) /hpf Amorphous Sediment (None) /hpf Urine Bacteria (None) /hpf Urine Mucus (None) /hpf 04/03/17 04/04/17 04/04/17 Range/Units 23:34 02:08 07:41 Chloride 113 H (98-107) mmol/L Carbon Dioxide 17 L (22-30) mmol/L BUN 87 H* (9-20) mg/dL Creatinine 3.58 H (0.66-1.25) mg/dL Glucose 276 H (74-99) mg/dL POC Glucose (mg/dL) 223 H (75-99) mg/dL Calcium 7.9 L (8.4-10.2) mg/dL Phosphorus 5.2 H (2.5-4.5) mg/dL Urine Protein 1+ H (Negative) Urine Blood Small H (Negative) Ur Leukocyte Esterase Small H (Negative) Urine WBC 9 H (0-5) /hpf Amorphous Sediment Occasional H (None) /hpf Urine Bacteria Rare H (None) /hpf Urine Mucus Rare H (None) /hpf 04/04/17 Range/Units 07:43 Chloride (98-107) mmol/L Carbon Dioxide (22-30) mmol/L BUN (9-20) mg/dL Creatinine (0.66-1.25) mg/dL Glucose (74-99) mg/dL POC Glucose (mg/dL) 277 H (75-99) mg/dL Calcium (8.4-10.2) mg/dL Phosphorus (2.5-4.5) mg/dL Urine Protein (Negative) Urine Blood (Negative) Ur Leukocyte Esterase (Negative) Urine WBC (0-5) /hpf Amorphous Sediment (None) /hpf Urine Bacteria (None) /hpf Urine Mucus (None) /hpf Assessment and Plan (1) Free intraperitoneal air Narrative/Plan: Await official CT report. The upper abdominal fluid collections are likely amenable to CT aspiration/drainage however not entirely convinced that this is necessary at this point. We'll discuss with infectious disease and await radiologist's impression. Await morning CBC. Continue diet. I will be out of town and covered by Dr. Jones and Dr. Ayoub. Status: Acute
[2017-04-04 09:43] LABS: Basophils # (A) 0.1 k/uL (0-0.2); Basophils % (A) 1 %; CH 27.6; CHCM 30.2; Eosinophils # (A) 0.2 k/uL (0-0.7); Eosinophils % (A) 2 %; HCT 25.2 % (39.0-53.0); HDW 3.08; HGB 7.9 gm/dL (13.0-17.5); Hypochromasia Moderate; Luc # (Auto) 0.31; Luc % (Auto) 2; Lymphocytes # (A) 1.4 k/uL (1.0-4.8); Lymphocytes % (A) 11 %; MCH 28.8 pg (25.0-35.0); MCHC 31.4 g/dL (31.0-37.0); MCV 91.7 fL (80.0-100.0); Mean Platelet Volume 8.2; Monocytes # (A) 0.9 k/uL (0-1.0); Monocytes % (A) 7 %; Neutrophils # (A) 10.2 k/uL (1.3-7.7); Neutrophils % (A) 78 %; RBC 2.75 m/uL (4.30-5.90); RDW 14.7 % (11.5-15.5); WBC 13.2 k/uL (3.8-10.6); WBC (Perox) 13.63
--- NOTE | 2017-04-04 10:46 | CT ---
EXAMINATION TYPE: CT abdomen pelvis wo con DATE OF EXAM: 04/04/2017 COMPARISON: March 16, 2017 HISTORY: Abdominal pain CT DLP: 1602.4 mGycm Examination of the solid and hollow viscera is limited given the lack of contrast. FINDINGS: LUNG BASES: Moderate bilateral pleural effusions with probable compressive atelectasis versus infiltr ates. LIVER/GB: Cholecystectomy clips are in place. Trace fluid within the region of the gallbladder fossa. Small amount of the fluid surrounds the liver margin. No space-occupying hepatic lesion. PANCREAS: No pancreatic mass identified. No inflammatory process seen. SPLEEN: No evidence for splenomegaly. No intrasplenic lesions seen. Moderate fluid identified about t he left upper quadrant. ADRENALS: No adrenal nodules identified. No evidence for thickening. KIDNEYS: No evidence for renal mass. 1.8 cm calculus right renal pelvis without definite hydronephros is. Additional nonobstructing calculus mid pole right kidney. No left-sided calculi seen. No hydronep hrosis. Castellanos balloon catheter in place. BOWEL: There is gastric wall thickening which could be related to poor distention. No evidence of jerson wel obstruction. No inflammatory process.Rectal catheter in place as well. Lymph nodes: No evidence for adenopathy greater than 1 cm. Abdominal aorta: Atheromatous changes seen. No evidence for aneurysm. Genital organs: No significant abnormality. Other: Upper abdominal ascites with a small amount of fluid within the pelvis. There is a fluid colle ction noted adjacent to the left hepatic lobe and stomach measuring 8.1 cm in length as well as an ad ditional nonspecific fluid collection measuring 6.2 cm agree adjacent to the greater gastric curvatur e. This could reflect a postoperative seromas. Developing infected collections are difficult to exclu de. Midline skin danita noted. IMPRESSION: 1. STATUS POST CHOLECYSTECTOMY WITH TRACE FLUID SEEN WITHIN THE GALLBLADDER FOSSA. 2. MODERATE UPPER ABDOMINAL ASCITES WITH A SMALLER AMOUNT OF PELVIC FLUID. LOCULATED FLUID COLLECTION S ADJACENT TO THE LEFT HEPATIC LOBE AND STOMACH COULD REFLECT SEROMA FORMATION. DEVELOPING INFECTED C OLLECTION IS DIFFICULT TO EXCLUDE. 3. MODERATE BILATERAL PLEURAL EFFUSIONS AND PROBABLE COMPRESSIVE ATELECTASIS OR INFILTRATES. 4. GASTRIC WALL THICKENING.
[2017-04-04] MEDS: SODIUM BICARBONATE TAB 650 MG TAB PO SCH ×2 (11:26→22:02)
[2017-04-04 11:41] LABS: Glucose,Whole Blood 216 mg/dL (75-99)
[2017-04-04] MEDS ORDERED: VANCOMYCIN 1,500 MG in SODIUM CHLORIDE 0.9% 250 ML IVPB ONE (12:00)
--- NOTE | 2017-04-04 14:36 | P.CONS ---
History of Present Illness - Reason for Consult Fever - History of Present Illness Patient is a 66-year-old admitted on March 16 for open cholecystectomy expiratory laparotomy and repair of the gastric ulcer patient has a highly complicated hospitalization course and post surgical course including pneumoperitoneum. Presently patient is on TPN which is being switched to oral diet. Patient is on broad-spectrum antibiotics for intra-abdominal source of infection possibly with an antifungal Zosyn and vancomycin. Patient was on daptomycin until a before. Patient started having fevers as today. Chest x- ray is showed questionable pneumonia. Patient is already in antibiotics at this time. Patient denied any dysuria. Patient also has a Acstellanos catheter and a fecal management system. Blood cultures, urine cultures were obtained close clinical monitoring at this point of time. Patient respiratory status significantly improved initially was in intensive care unit. Patient has a fecal management system with some diarrhea which is improving. Patient has adequate results of that is being managed by infectious disease. Patient has a stage III ulcer. Review of Systems REVIEW OF SYSTEMS: CONSTITUTIONAL: no malaise, no fatigue. HEENT: No recent visual problems or hearing problems. Denied any sore throat. CARDIOVASCULAR: No chest pain, orthopnea, PND, no palpitations, no syncope. PULMONARY: No shortness of breath, no cough, no hemoptysis. GASTROINTESTINAL: No diarrhea, no nausea, no vomiting, no abdominal pain. Normoactive bowel sounds. NEUROLOGICAL: No headaches, no weakness, no numbness. HEMATOLOGICAL: Denies any bleeding or petechiae. GENITOURINARY: Denies any burning micturition, frequency, or urgency. MUSCULOSKELETAL/RHEUMATOLOGICAL: Denies any joint pain, swelling, or any muscle pain. ENDOCRINE: Denies any polyuria or polydipsia. The rest of the 14-point review of systems is negative. Past Medical History Past Medical History: Cancer, Diabetes Mellitus, Eye Disorder, GERD/Reflux Additional Past Medical History / Comment(s): Congestion heart failure suspected , diabetes mellitus, severe peripheral vascular disease with gangrenous right lower extremity status post below-knee (May 2016) amputation on the right and left toe amputation involving the third fourth and fifth toe (2011), obesity, diabetic peripheral neuropathy, diabetic retinopathy with history of a Detached retina, diabetic nephropathy with stage II chronic kidney disease, diabetic peripheral neuropathy, GERD reflux, chronic anemia History of Any Multi-Drug Resistant Organisms: MRSA, VRE Year Discovered:: 03/18/17 MRSA; 07/22/16 VRE & MRSA MDRO Source:: Sputm-MRSA; Right Leg VRE & MRSA Past Surgical History: Cholecystectomy Additional Past Surgical History / Comment(s): Left toe amputations 3, 4, 5, retinal surgery. Right BKA; Skin cancer removed: back of neck, upper back, Past Anesthesia/Blood Transfusion Reactions: No Reported Reaction Past Psychological History: No Psychological Hx Reported Smoking Status: Never smoker Past Alcohol Use History: None Reported Additional Past Alcohol Use History / Comment(s): . Past Drug Use History: None Reported - Past Family History Mother Family Medical History: Diabetes Mellitus, Renal Disease Father Family Medical History: Congestive Heart Failure (CHF) Brother(s) Family Medical History: No Reported History Sister(s) Family Medical History: No Reported History Medications and Allergies Home Medications Medication Instructions Recorded Confirmed Type Ferrous Sulfate [Iron (65 MG 325 mg PO QAM 05/13/16 03/16/17 History Elemental)] Lactobacillus Acidophilus 1 tab PO BID 05/19/16 03/16/17 History [Acidophilus] Omeprazole 20 mg PO DAILY 05/29/16 03/17/17 History Furosemide [Lasix] 20 mg PO DAILY@1200 07/29/16 03/17/17 History Furosemide [Lasix] 40 mg PO DAILY@0600 07/29/16 03/17/17 History Carvedilol [Coreg] 6.25 mg PO BID@0900,1700 03/16/17 03/16/17 History Eviredge 150 mg PO HS 03/16/17 03/16/17 History HYDROcodone/APAP 5-325MG [[place] 1 tab PO Q6H PRN 03/16/17 03/16/17 History 5-325] Insulin Aspart [NovoLOG Flexpen] 6 units SQ AC-TID 03/16/17 03/16/17 History Insulin Glargine,Hum.rec.anlog 8 unit SQ 03/16/17 03/16/17 History [Basaglar Kwikpen U-100] hydrALAZINE HCL [Apresoline] 25 mg PO TID@0900,1300,1700 03/16/17 03/16/17 History Allergies Allergy/AdvReac Type Severity Reaction Status Date / Time No Known Allergies Allergy Verified 03/16/17 17:03 Physical Exam Vitals: Vital Signs Temp Pulse Pulse Resp BP Pulse Ox 04/04/17 11:54 98.9 F 79 18 128/73 04/04/17 06:55 98.9 F 104 H 18 152/84 04/04/17 00:38 99 F 04/03/17 23:22 100.7 F H 04/03/17 23:00 99.7 F H 04/03/17 22:00 100.1 F H 111 H 17 123/65 93 L 04/03/17 20:37 104 H 04/03/17 20:19 104 H 04/03/17 17:45 98.8 F 04/03/17 17:01 107 H 04/03/17 16:44 107 H 95 04/03/17 15:00 99.2 F 111 H 18 151/83 94 L 04/03/17 14:42 112 H 18 Intake and Output 04/03/17 04/04/17 04/04/17 22:59 06:59 14:59 Intake Total 213 166 300 Output Total 450 1650 Balance -237 -1484 300 Intake: IV 63 166 Fat Emulsion 20% 250 ml 63 166 In Empty Bag 1 bag @ 21 mls/hr IV DAILY@1400 [facility] Rx#:[id number] Intake, IV Titration 150 Amount Mvi, Adult No.4 with Vit 150 K 10 ml Trace (Conc-1Ml/ Dose) 1 ml Potassium Acetate 20 meq Calcium Gluconate 1,000 mg In Amino Acid 5%-D15w 1,000 ml @ 50 mls/hr IV . [id number] [facility] Rx#:[id number] Oral 300 Output: Urine 450 450 Stool 1200 Other: Voiding Method Indwelling Catheter Weight 95 kg PHYSICAL EXAMINATION: GENERAL: The patient is alert and oriented x3, not in any acute distress. Well developed, well nourished. Patient has a fecal management system and a Castellanos catheter in place patient has previous I am patient's right below knee amputation and application of second through fifth toes on the left side. He has a stage III decub ulcer HEENT: Pupils are round and equally reacting to light. EOMI. No scleral icterus. No conjunctival pallor. Normocephalic, atraumatic. No pharyngeal erythema. No thyromegaly. CARDIOVASCULAR: S1 and S2 present. No murmurs, rubs, or gallops. PULMONARY: Chest is clear to auscultation, no wheezing or crackles. ABDOMEN: Soft, nontender, nondistended, normoactive bowel sounds. No palpable organomegaly. MUSCULOSKELETAL: No joint swelling or deformity. EXTREMITIES: No cyanosis, clubbing, or pedal edema. NEUROLOGICAL: Gross neurological examination did not reveal any focal deficits. SKIN: No rashes. Results CBC & Chem 7: 04/04/17 07:41 04/04/17 07:41 Labs: Abnormal Lab Results - Last 24 Hours (Table) 04/03/17 04/03/17 04/03/17 Range/Units 17:07 20:18 23:34 WBC (3.8-10.6) k/uL RBC (4.30-5.90) m/uL Hgb (13.0-17.5) gm/dL Hct (39.0-53.0) % Plt Count (150-450) k/uL Neutrophils # (1.3-7.7) k/uL Chloride (98-107) mmol/L Carbon Dioxide (22-30) mmol/L BUN (9-20) mg/dL Creatinine (0.66-1.25) mg/dL Glucose (74-99) mg/dL POC Glucose (mg/dL) 239 H 182 H (75-99) mg/dL Calcium (8.4-10.2) mg/dL Phosphorus (2.5-4.5) mg/dL Urine Protein 1+ H (Negative) Urine Blood Small H (Negative) Ur Leukocyte Esterase Small H (Negative) Urine WBC 9 H (0-5) /hpf Amorphous Sediment Occasional H (None) /hpf Urine Bacteria Rare H (None) /hpf Urine Mucus Rare H (None) /hpf 04/04/17 04/04/17 04/04/17 Range/Units 02:08 07:41 07:41 WBC 13.2 H (3.8-10.6) k/uL RBC 2.75 L (4.30-5.90) m/uL Hgb 7.9 L (13.0-17.5) gm/dL Hct 25.2 L (39.0-53.0) % Plt Count 624 H (150-450) k/uL Neutrophils # 10.2 H (1.3-7.7) k/uL Chloride 113 H (98-107) mmol/L Carbon Dioxide 17 L (22-30) mmol/L BUN 87 H* (9-20) mg/dL Creatinine 3.58 H (0.66-1.25) mg/dL Glucose 276 H (74-99) mg/dL POC Glucose (mg/dL) 223 H (75-99) mg/dL Calcium 7.9 L (8.4-10.2) mg/dL Phosphorus 5.2 H (2.5-4.5) mg/dL Urine Protein (Negative) Urine Blood (Negative) Ur Leukocyte Esterase (Negative) Urine WBC (0-5) /hpf Amorphous Sediment (None) /hpf Urine Bacteria (None) /hpf Urine Mucus (None) /hpf 04/04/17 04/04/17 Range/Units 07:43 11:23 WBC (3.8-10.6) k/uL RBC (4.30-5.90) m/uL Hgb (13.0-17.5) gm/dL Hct (39.0-53.0) % Plt Count (150-450) k/uL Neutrophils # (1.3-7.7) k/uL Chloride (98-107) mmol/L Carbon Dioxide (22-30) mmol/L BUN (9-20) mg/dL Creatinine (0.66-1.25) mg/dL Glucose (74-99) mg/dL POC Glucose (mg/dL) 277 H 216 H (75-99) mg/dL Calcium (8.4-10.2) mg/dL Phosphorus (2.5-4.5) mg/dL Urine Protein (Negative) Urine Blood (Negative) Ur Leukocyte Esterase (Negative) Urine WBC (0-5) /hpf Amorphous Sediment (None) /hpf Urine Bacteria (None) /hpf Urine Mucus (None) /hpf Microbiology - Last 24 Hours (Table) 04/03/17 23:34 Urine Culture - Preliminary Urine,Catheterized Assessment and Plan Plan: (1) Acute abdomen Status: Secondary to acute cholecystitis status post expiratory laparotomy, this improved. (2) History of exploratory laparotomy Status: Acute (3) Perforated peptic ulcer Status: Patient is on TPN which is being weaned off and patient is being started on diet. (4) Acute renal failure Status: Secondary to acute blood necrosis, creatinine improved monitoring kidney function, avoiding nephrotoxic agents and nephrology is following the patient (5) Cholecystitis Status: Resolved (6) fever, new onset, pancultures and chest x-ray were obtained source of infection not clear at this point of time, patient will be monitored and infectious disease is following the patient Status: Patient is already on broad-spectrum antibiotics vancomycin, Zosyn and flucanazole (7) COPD (chronic obstructive pulmonary disease) Status: Not in acute exacerbation (8) sacral decubitus ulcer Status: Management as per infectious disease (9) Diabetes2 Status: Continue with present regimen monitor blood sugars titration as necessary (10) Hypothyroidism Status: Acute (11) Systolic CHF, acute on chronic Patient's TPN is being weaned off, monitor cultures. Possibly of discharge to subacute rehabilitation on Friday
[2017-04-04] MEDS: MVI, ADULT NO.4 WITH VIT K 10 ML, TRACE (CONC-1ML/DOSE) 1 ML, CALCIUM GLUCONATE 1,000 M... IV SCH ×4 (14:55)
[2017-04-04] MEDS: HEPARIN SODIUM,PORCINE 5,000 UNIT/ML 1 ML VIAL SQ SCH ×2 (14:57→17:30)
[2017-04-04] MEDS: FAT EMULSION 20% 250 ML in EMPTY BAG 1 BAG IV SCH (17:30)
[2017-04-04 17:43] LABS: Glucose,Whole Blood 191 mg/dL (75-99)
--- NOTE | 2017-04-04 18:07 | P.PN ---
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 [facility] most recently under the care of Dr. Gordon and discharged in August 2016 after a dehiscence of the right below the knee wound healed. Patient presented to [facility] emergency center on March 16 with generalized weakness and abdominal pain for at least couple days up to 1 week with concerns for constipation and was taking laxatives with no improvement. Patient also had decreased appetite and pain was gradually worsening. There was nausea without vomiting. Chest x-ray showed pneumoperitoneum and left basilar atelectasis with no heart failure. Abdominal films also showed pneumoperitoneum. CAT scan of the abdomen and pelvis without contrast and was found have a large pneumoperitoneum, large ascites, large nonobstructive right renal calculi and possible gallbladder thickening with concern for gangrenous gallbladder. Patient was taken to the OR by Dr. Wiley for exploratory laparotomy with repair of perforated peptic ulcer and open cholecystectomy. Patient was then transferred to the intensive care unit where he remains intubated and on mechanical ventilation. Patient presented with severe sepsis and septic shock status post 7 1/2 liters of fluid currently on levo at 20 mics. He did not have a urine output for the day shift thus far. O2 needs have decreased however. He is currently on IV antimicrobials in the form of fluconazole, Flagyl and Zosyn. Blood cultures status received and urine culture status received. C. difficile toxin was negative. Patient is noted to have a stage II decubitus ulcer on his buttocks that was present on admission. acute renal failure improving The patient did have a rough Morning. With significant amount of abdominal pain. Was seen by the surgeon. A computed tomography scan has been performed showing evidence of some ongoing fluid collection and which abscess cannot be ruled out. Fortunately his pneumonia is improved. This afternoon he is feeling better with pain medication. Objective - Vital Signs Vital signs: Vital Signs Temp 99.4 F 04/04/17 15:00 Pulse 101 H 04/04/17 15:20 Resp 18 04/04/17 15:00 BP 140/83 04/04/17 15:00 Pulse Ox 97 04/04/17 15:20 Intake & Output 04/03/17 04/04/17 04/04/17 18:59 06:59 18:59 Intake Total 1096 379 300 Output Total 1525 1650 Balance -429 -1271 300 Weight 95 kg 95 kg Intake: IV 229 Fat Emulsion 20% 250 ml 229 In Empty Bag 1 bag @ 21 mls/hr IV DAILY@1400 [facility] Rx#:[id number] Intake, IV Titration 1036 150 Amount Mvi, Adult No.4 with Vit 150 K 10 ml Trace (Conc-1Ml/ Dose) 1 ml Potassium Acetate 20 meq Calcium Gluconate 1,000 mg In Amino Acid 5%-D15w 1,000 ml @ 50 mls/hr IV . [id number] [facility] Rx#:[id number] Mvi, Adult No.4 with Vit 1036 K 10 ml Trace (Conc-1Ml/ Dose) 1 ml Potassium Acetate 30 meq Calcium Gluconate 1,000 mg In Amino Acid 5%-D15w 1,000 ml @ 50 mls/hr IV . [id number] [facility] Rx#:[id number] Oral 60 300 Output: Urine 925 450 Uretheral (Castellanos) 475 Stool 600 1200 Other: Voiding Method Indwelling Catheter Indwelling Catheter ABP, PAP, CO, CI - Last Documented Arterial Blood Pressure 146/54 - Exam Gen: This is an obese 66-year-old male. He is seen in the ICU, he has been extubated. Patient appears comfortable and in no acute distress. HEENT: Head is atraumatic, normocephalic. Oral ET and gastric tube in place. White coating noted on the tongue. Mucous membranes are slightly dry.. NECK: Supple. No JVD. No lymphadenopathy. Trachea midline. LUNGS: There is symmetrical air entry bilaterally. Coarse crackles are scattered the lung kraft. Subtly improved when he coughs. Scattered wheezes are also heard. HEART: Regular rate and rhythm. No murmur. Patient is tachycardic. ABDOMEN: Soft. Bowel sounds are present. No masses. minimal tenderness. Dressing to the right upper quadrant and midline are in place with no breakthrough drainage or bleeding. Castellanos catheter in place draining clear pinky urine. EXTREMITIES: No pedal edema to the left lower extremity. Patient has amputations of toes 2 through 5 on the left and a right below the knee amputation. All extremities are cool to the touch. No mottling noted. NEUROLOGICAL: Patient awake alert no acute deficits - Labs CBC & Chem 7: 04/04/17 07:41 04/04/17 07:41 Labs: Abnormal Lab Results - Last 24 Hours (Table) 04/03/17 04/03/17 04/04/17 Range/Units 20:18 23:34 02:08 WBC (3.8-10.6) k/uL RBC (4.30-5.90) m/uL Hgb (13.0-17.5) gm/dL Hct (39.0-53.0) % Plt Count (150-450) k/uL Neutrophils # (1.3-7.7) k/uL Chloride (98-107) mmol/L Carbon Dioxide (22-30) mmol/L BUN (9-20) mg/dL Creatinine (0.66-1.25) mg/dL Glucose (74-99) mg/dL POC Glucose (mg/dL) 182 H 223 H (75-99) mg/dL Calcium (8.4-10.2) mg/dL Phosphorus (2.5-4.5) mg/dL Urine Protein 1+ H (Negative) Urine Blood Small H (Negative) Ur Leukocyte Esterase Small H (Negative) Urine WBC 9 H (0-5) /hpf Amorphous Sediment Occasional H (None) /hpf Urine Bacteria Rare H (None) /hpf Urine Mucus Rare H (None) /hpf 04/04/17 04/04/17 04/04/17 Range/Units 07:41 07:41 07:43 WBC 13.2 H (3.8-10.6) k/uL RBC 2.75 L (4.30-5.90) m/uL Hgb 7.9 L (13.0-17.5) gm/dL Hct 25.2 L (39.0-53.0) % Plt Count 624 H (150-450) k/uL Neutrophils # 10.2 H (1.3-7.7) k/uL Chloride 113 H (98-107) mmol/L Carbon Dioxide 17 L (22-30) mmol/L BUN 87 H* (9-20) mg/dL Creatinine 3.58 H (0.66-1.25) mg/dL Glucose 276 H (74-99) mg/dL POC Glucose (mg/dL) 277 H (75-99) mg/dL Calcium 7.9 L (8.4-10.2) mg/dL Phosphorus 5.2 H (2.5-4.5) mg/dL Urine Protein (Negative) Urine Blood (Negative) Ur Leukocyte Esterase (Negative) Urine WBC (0-5) /hpf Amorphous Sediment (None) /hpf Urine Bacteria (None) /hpf Urine Mucus (None) /hpf 04/04/17 04/04/17 Range/Units 11:23 17:30 WBC (3.8-10.6) k/uL RBC (4.30-5.90) m/uL Hgb (13.0-17.5) gm/dL Hct (39.0-53.0) % Plt Count (150-450) k/uL Neutrophils # (1.3-7.7) k/uL Chloride (98-107) mmol/L Carbon Dioxide (22-30) mmol/L BUN (9-20) mg/dL Creatinine (0.66-1.25) mg/dL Glucose (74-99) mg/dL POC Glucose (mg/dL) 216 H 191 H (75-99) mg/dL Calcium (8.4-10.2) mg/dL Phosphorus (2.5-4.5) mg/dL Urine Protein (Negative) Urine Blood (Negative) Ur Leukocyte Esterase (Negative) Urine WBC (0-5) /hpf Amorphous Sediment (None) /hpf Urine Bacteria (None) /hpf Urine Mucus (None) /hpf Microbiology - Last 24 Hours (Table) 04/03/17 23:34 Urine Culture - Preliminary Urine,Catheterized Laboratory Results WBC 13.2 k/uL (3.8-10.6) H 04/04/17 07:41 RBC 2.75 m/uL (4.30-5.90) L 04/04/17 07:41 Hgb 7.9 gm/dL (13.0-17.5) L 04/04/17 07:41 Hct 25.2 % (39.0-53.0) L 04/04/17 07:41 MCV 91.7 fL (80.0-100.0) 04/04/17 07:41 MCH 28.8 pg (25.0-35.0) 04/04/17 07:41 MCHC 31.4 g/dL (31.0-37.0) 04/04/17 07:41 RDW 14.7 % (11.5-15.5) 04/04/17 07:41 Plt Count 624 k/uL (150-450) H 04/04/17 07:41 Neutrophils % 78 % 04/04/17 07:41 Neutrophils % (Manual) 61.6 % 03/17/17 04:20 Band Neutrophils % 15.2 % 03/17/17 04:20 Lymphocytes % 11 % 04/04/17 07:41 Lymphocytes % (Manual) 18.2 % 03/17/17 04:20 Monocytes % 7 % 04/04/17 07:41 Monocytes % (Manual) 5.1 % 03/17/17 04:20 Eosinophils % 2 % 04/04/17 07:41 Basophils % 1 % 04/04/17 07:41 Metamyelocytes % 4.0 % 03/16/17 22:50 Neutrophils # 10.2 k/uL (1.3-7.7) H 04/04/17 07:41 Neutrophils # (Manual) 7.1 k/uL (1.3-7.7) 03/17/17 04:20 Lymphocytes # 1.4 k/uL (1.0-4.8) 04/04/17 07:41 Lymphocytes # (Manual) 1.7 k/uL (1.0-4.8) 03/17/17 04:20 Monocytes # 0.9 k/uL (0-1.0) 04/04/17 07:41 Monocytes # (Manual) 0.5 k/uL (0-1.0) 03/17/17 04:20 Eosinophils # 0.2 k/uL (0-0.7) 04/04/17 07:41 Basophils # 0.1 k/uL (0-0.2) 04/04/17 07:41 Nucleated RBCs 0 /100 WBC (0-0) 03/17/17 04:20 Manual Slide Review Performed 03/17/17 04:20 Toxic Granulation Present 03/16/17 16:30 RBC Morphology Normal 03/16/17 16:30 Hypochromasia Moderate 04/04/17 07:41 Anisocytosis Slight 03/27/17 03:39 PT 10.4 sec (9.0-12.0) 03/16/17 16:30 INR 1.0 (<1.2) 03/16/17 16:30 APTT 22.1 sec (22.0-30.0) 03/16/17 16:30 Sample Site bushra 03/22/17 11:43 ABG pH 7.35 (7.35-7.45) 03/22/17 11:43 ABG pCO2 25 mmHg (35-45) L 03/22/17 11:43 ABG pO2 165 mmHg (83-108) H 03/22/17 11:43 ABG HCO3 13 mmol/L (21-25) L 03/22/17 11:43 ABG Total CO2 14 mmol/L (19-24) L 03/22/17 11:43 ABG O2 Saturation 99.0 % (94-97) H 03/22/17 11:43 ABG Base Excess -11.1 mmol/L 03/22/17 11:43 ABG Hematocrit 29 % (34.0-46.0) L 03/16/17 21:12 ABG Lactic Acid 0.7 mmol/L (0.5-1.6) 03/20/17 04:45 VBG pH 7.25 (7.31-7.41) L 03/16/17 16:30 VBG pCO2 29 mmHg (37-51) L 03/16/17 16:30 VBG HCO3 12 mmol/L (24-28) L 03/16/17 16:30 FiO2 40 % 03/22/17 11:43 Sodium 143 mmol/L (137-145) 04/04/17 07:41 Potassium 5.1 mmol/L (3.5-5.1) 04/04/17 07:41 Chloride 113 mmol/L (98-107) H 04/04/17 07:41 Carbon Dioxide 17 mmol/L (22-30) L 04/04/17 07:41 Anion Gap 13 mmol/L 04/04/17 07:41 BUN 87 mg/dL (9-20) H* 04/04/17 07:41 Creatinine 3.58 mg/dL (0.66-1.25) H 04/04/17 07:41 Est GFR (MDRD) Af Amer 21 (>60 ml/min/1.73 sqM) 04/04/17 07:41 Est GFR (MDRD) Non-Af 17 (>60 ml/min/1.73 sqM) 04/04/17 07:41 Glucose 276 mg/dL (74-99) H 04/04/17 07:41 POC Glucose (mg/dL) 191 mg/dL (75-99) H 04/04/17 17:30 POC Glu [employer] Manager Aishwarya Reynolds M 04/04/17 17:[address] Glu mg/dL 174 mg/dL 03/17/17 04:20 Hemoglobin A1c 7.7 % (4.2-6.1) H 03/17/17 04:20 Lactic Ac Sepsis Rflx Y 03/16/17 16:57 Plasma Lactic Acid Mario 2.8 mmol/L (0.7-2.0) H* 03/16/17 22:42 Calcium 7.9 mg/dL (8.4-10.2) L 04/04/17 07:41 Ionized Calcium Valorie 4.8 mg/dL (4.5-5.3) 04/04/17 07:41 Phosphorus 5.2 mg/dL (2.5-4.5) H 04/04/17 07:41 Magnesium 2.3 mg/dL (1.6-2.3) 04/04/17 07:41 Total Bilirubin 1.5 mg/dL (0.2-1.3) H 03/20/17 11:36 AST 19 U/L (17-59) 03/20/17 11:36 ALT 28 U/L (21-72) 03/20/17 11:36 Alkaline Phosphatase 60 U/L (38-126) 03/20/17 11:36 Total Creatine Kinase 216 U/L (55-170) H 03/16/17 16:30 CK-MB (CK-2) 2.9 ng/mL (0.0-2.4) H* 03/16/17 16:30 CK-MB (CK-2) Rel Index 1.3 03/16/17 16:30 Troponin I 0.590 ng/mL (0.000-0.034) H* 03/16/17 16:30 Total Protein 3.4 g/dL (6.3-8.2) L 03/20/17 11:36 Albumin 1.9 g/dL (3.5-5.0) L 03/27/17 03:39 Triglycerides 142 mg/dL (<150) 03/27/17 03:39 TSH 0.672 mIU/L (0.465-4.680) 03/16/17 16:30 Urine Color Yellow 04/03/17 23:34 Urine Appearance Cloudy (Clear) 04/03/17 23:34 Urine pH 5.5 (5.0-8.0) 04/03/17 23:34 Ur Specific Charlo 1.014 (1.001-1.035) 04/03/17 23:34 Urine Protein 1+ (Negative) H 04/03/17 23:34 Urine Glucose (UA) Negative (Negative) 04/03/17 23:34 Urine Ketones Negative (Negative) 04/03/17 23:34 Urine Blood Small (Negative) H 04/03/17 23:34 Urine Nitrite Negative (Negative) 04/03/17 23:34 Urine Bilirubin Negative (Negative) 04/03/17 23:34 Urine Urobilinogen <2.0 mg/dL (<2.0) 04/03/17 23:34 Ur Leukocyte Esterase Small (Negative) H 04/03/17 23:34 Urine RBC 5 /hpf (0-5) 04/03/17 23:34 Urine WBC 9 /hpf (0-5) H 04/03/17 23:34 Ur Squamous Epith Cells 2 /hpf (0-4) 04/03/17 23:34 Amorphous Sediment Occasional /hpf (None) H 04/03/17 23:34 Urine Bacteria Rare /hpf (None) H 04/03/17 23:34 Hyaline Casts 12 /lpf (0-2) H 03/31/17 10:20 Granular Casts 2 /lpf (0) 03/31/17 10:20 Urine Mucus Rare /hpf (None) H 04/03/17 23:34 Urine Eosinophils 0 % 03/31/17 10:20 Random Vancomycin 17.6 ug/mL 04/04/17 07:41 C. difficile (EIA) Intrp Negative (Negative) 03/28/17 15:06 Blood Type A Positive 03/28/17 10:58 Blood Type Recheck No 03/28/17 10:58 Antibody Screen NEGATIVE 03/28/17 10:58 Crossmatch See Detail 03/28/17 10:58 Spec Expiration Date 03/31/2017 - 2358 03/28/17 10:58 Microbiology 04/03/17 23:34 Urine,Catheterized Urine Culture - Preliminary 03/23/17 08:00 Peritoneal Fluid Gram Stain - Final 03/23/17 08:00 Peritoneal Fluid Body Fluid Culture - Final 03/16/17 16:30 Blood Blood Culture - Final No Growth after 144 hours 03/18/17 02:25 Sputum Gram Stain - Final 03/18/17 02:25 Sputum Sputum Culture - Final Methicillin resist S. aureus 03/16/17 19:00 Urine,Voided Urine Culture - Final Assessment and Plan (1) Septic shock Narrative/Plan: 66-year-old male with multiple medical troubles with left toe amputations and right below-knee amputation due to his severe peripheral vascular disease. Now presents with a significant bout of sepsis from the abdomen. Has evidence of pneumoperitoneum. Perforated gastric ulcer was noted. As well as gangrenous cholecystitis. He's had the surgical incision is noted. Now improving from his septic shock. For sepsis from the abdominal source in the condition of the perforation and gangrenous cholecystitis was initially treated with antifungal therapy with fluconazole. Piperacillin tazobactam is being dosed per his renal failure. Has a history of MRSA as well as VRE infection. Daptomycin was being utilized. However MRSA was found in the pulmonary secretions. Was changed to vancomycin and that no VRE has now been isolated from his abdominal cultures. Concerns related to his acute renal failure. Will be monitored closely. Cultures are in process. Supportive care continues. Patient had a very difficult morning. He developed worsening abdominal pain. Computed tomography scan has been performed showing evidence of some fluid in the area where the gallbladder was present. Still some fluid intra-abdominally and abscess cannot be excluded. The patient's increased pain, his fever and leukocytosis we'll alter antimicrobial therapy at this point in time. Ceftaroline with metronidazole be given in process. An cultures are in process. Status: Acute (2) Gastric perforation Status: Acute (3) Cholecystitis Status: Acute
[2017-04-04] MEDS: metroNIDAZOLE-NS PMX 500 MG in SALINE 1 100ML.BAG IVPB SCH (19:25)
[2017-04-04 20:17] LABS: Glucose,Whole Blood 233 mg/dL (75-99)
[2017-04-04] MEDS: CEFTAROLINE FOSAMIL 300 MG in SODIUM CHLORIDE 0.9% 250 ML IVPB SCH (22:02)
[2017-04-05] MEDS: metroNIDAZOLE-NS PMX 500 MG in SALINE 1 100ML.BAG IVPB SCH ×3 (00:17→16:20)
[2017-04-05] MEDS: HEPARIN SODIUM,PORCINE 5,000 UNIT/ML 1 ML VIAL SQ SCH ×3 (00:17→16:20)
[2017-04-05 02:05] LABS: Glucose,Whole Blood 238 mg/dL (75-99)
[2017-04-05] MEDS: HYDROmorphone 1 MG/ML 1 ML SYRINGE IVP PRN ×2 (03:15→21:41)
[2017-04-05] MEDS: INSULIN LISPRO (humaLOG) 300 UNIT/3 ML VIAL SQ SCH ×5 (03:15→21:42)
[2017-04-05 06:59] LABS: Glucose,Whole Blood 264 mg/dL (75-99)
[2017-04-05 07:22] LABS: Basophils # (A) 0.1 k/uL (0-0.2); Basophils % (A) 1 %; CH 28.6; CHCM 30.7; Eosinophils # (A) 0.4 k/uL (0-0.7); Eosinophils % (A) 3 %; HCT 25.5 % (39.0-53.0); HDW 3.11; HGB 7.5 gm/dL (13.0-17.5); Hypochromasia Moderate; Luc # (Auto) 0.26; Luc % (Auto) 2; Lymphocytes # (A) 1.2 k/uL (1.0-4.8); Lymphocytes % (A) 11 %; MCH 27.4 pg (25.0-35.0); MCHC 29.3 g/dL (31.0-37.0); MCV 93.5 fL (80.0-100.0); Mean Platelet Volume 8.5; Monocytes # (A) 0.8 k/uL (0-1.0); Monocytes % (A) 7 %; Neutrophils # (A) 8.4 k/uL (1.3-7.7); Neutrophils % (A) 76 %; RBC 2.72 m/uL (4.30-5.90); RDW 15.3 % (11.5-15.5); WBC (Perox) 10.94
[2017-04-05 07:41] LABS: Calcium 7.7 mg/dL (8.4-10.2); Magnesium 2.1 mg/dL (1.6-2.3); Phosphorous 4.9 mg/dL (2.5-4.5); Potassium 5.1 mmol/L (3.5-5.1)
[2017-04-05] MEDS: MVI, ADULT NO.4 WITH VIT K 10 ML, TRACE (CONC-1ML/DOSE) 1 ML, CALCIUM GLUCONATE 1,000 M... IV SCH ×4 (07:42)
[2017-04-05] MEDS: IPRATROPIUM-ALBUTEROL 3 ML NEB INHALATION SCH ×4 (08:12→21:09)
[2017-04-05] MEDS: SODIUM BICARBONATE TAB 650 MG TAB PO SCH ×2 (08:52→21:40)
[2017-04-05] MEDS: PANTOPRAZOLE 40 MG/10 ML VIAL IV SCH ×2 (08:54→21:40)
[2017-04-05] MEDS: CEFTAROLINE FOSAMIL 300 MG in SODIUM CHLORIDE 0.9% 250 ML IVPB SCH ×2 (10:21→21:40)
[2017-04-05] MEDS ORDERED: ONDANSETRON 4 MG/2 ML VIAL IVP PRN (10:39)
[2017-04-05] MEDS: DEXTROSE 5% IN WATER 1,000 ML IV SCH (11:44)
[2017-04-05 11:54] LABS: Glucose,Whole Blood 167 mg/dL (75-99)
--- NOTE | 2017-04-05 12:40 | P.PN ---
Subjective Principal diagnosis: Status post repair of perforated ulcer The patient is feeling somewhat better today. The nausea has improved. He still having diarrhea and a fecal management system is in place. A C. diff was sent but that was last week. Objective - Vital Signs Vital signs: Vital Signs Temp 97.5 F L 04/05/17 07:00 Pulse 100 04/05/17 11:58 Resp 18 04/05/17 07:00 BP 144/78 04/05/17 07:00 Pulse Ox 98 04/05/17 07:00 Intake & Output 04/04/17 04/05/17 04/05/17 18:59 06:59 18:59 Intake Total 300 2200 1021.000 Output Total 1000 475 Balance -700 1725 1021.000 Weight 93.5 kg Intake: IV 800 0.9 at 20 ml/hr 700 Fluconazole in NaCl Iso- 100 Osm 100mg in Saline 1 50ml.bag @50mls/hr IVPB Daily Intake, IV Titration 1400 1021.000 Amount Ceftaroline Fosamil 300 250 mg In Sodium Chloride 0.9 % 250 ml @ 250 mls/hr IVPB Q12HR XENA Rx#: [id number] Dextrose 5% in Water 1, 400 000 ml @ 50 mls/hr IV . Q20H XENA Rx#:[id number] Mvi, Adult No.4 with Vit 400 1021.000 K 10 ml Trace (Conc-1Ml/ Dose) 1 ml Calcium Gluconate 1,000 mg In Amino Acid 5%-D15w 1,000 ml @ 50 mls/hr IV . [id number] XENA Rx#:[id number] Vancomycin 1,500 mg In 250 Sodium Chloride 0.9% 250 ml @ 125 mls/hr IVPB ONCE ONE Rx#:[id number] metroNIDAZOLE-NS PMX 500 100 mg In Saline 1 100ml.bag @ 100 mls/hr IVPB Q8HR XENA Rx#:[id number] Oral 300 Output: Urine 400 475 Uretheral (Castellanos) 475 Stool 600 Other: Voiding Method Indwelling Catheter Indwelling Catheter ABP, PAP, CO, CI - Last Documented Arterial Blood Pressure 146/54 - Constitutional General appearance: Present: cooperative, no acute distress - Respiratory Respiratory: bilateral: CTA (Mildly diminished at the bases) - Cardiovascular Rhythm: regular - Gastrointestinal General gastrointestinal: Present: normal bowel sounds, soft Localized gastrointestinal: surgical scar: midline (There are nola in place. There is some mucoid drainage from the incision. No cellulitis) - Labs CBC & Chem 7: 04/05/17 06:54 04/05/17 06:54 Labs: Abnormal Lab Results - Last 24 Hours (Table) 04/04/17 04/04/17 04/05/17 Range/Units 17:30 20:16 02:04 WBC (3.8-10.6) k/uL RBC (4.30-5.90) m/uL Hgb (13.0-17.5) gm/dL Hct (39.0-53.0) % MCHC (31.0-37.0) g/dL Plt Count (150-450) k/uL Neutrophils # (1.3-7.7) k/uL Chloride (98-107) mmol/L Carbon Dioxide (22-30) mmol/L BUN (9-20) mg/dL Creatinine (0.66-1.25) mg/dL Glucose (74-99) mg/dL POC Glucose (mg/dL) 191 H 233 H 238 H (75-99) mg/dL Calcium (8.4-10.2) mg/dL Phosphorus (2.5-4.5) mg/dL Albumin (3.5-5.0) g/dL 04/05/17 04/05/17 04/05/17 Range/Units 06:54 06:54 06:58 WBC 11.0 H (3.8-10.6) k/uL RBC 2.72 L (4.30-5.90) m/uL Hgb 7.5 L (13.0-17.5) gm/dL Hct 25.5 L (39.0-53.0) % MCHC 29.3 L (31.0-37.0) g/dL Plt Count 586 H (150-450) k/uL Neutrophils # 8.4 H (1.3-7.7) k/uL Chloride 114 H (98-107) mmol/L Carbon Dioxide 18 L (22-30) mmol/L BUN 84 H* (9-20) mg/dL Creatinine 3.35 H (0.66-1.25) mg/dL Glucose 266 H (74-99) mg/dL POC Glucose (mg/dL) 264 H (75-99) mg/dL Calcium 7.7 L (8.4-10.2) mg/dL Phosphorus 4.9 H (2.5-4.5) mg/dL Albumin 2.3 L (3.5-5.0) g/dL 04/05/17 Range/Units 11:53 WBC (3.8-10.6) k/uL RBC (4.30-5.90) m/uL Hgb (13.0-17.5) gm/dL Hct (39.0-53.0) % MCHC (31.0-37.0) g/dL Plt Count (150-450) k/uL Neutrophils # (1.3-7.7) k/uL Chloride (98-107) mmol/L Carbon Dioxide (22-30) mmol/L BUN (9-20) mg/dL Creatinine (0.66-1.25) mg/dL Glucose (74-99) mg/dL POC Glucose (mg/dL) 167 H (75-99) mg/dL Calcium (8.4-10.2) mg/dL Phosphorus (2.5-4.5) mg/dL Albumin (3.5-5.0) g/dL Microbiology - Last 24 Hours (Table) 04/03/17 23:34 Urine Culture - Final Urine,Catheterized 04/03/17 23:50 Blood Culture - Preliminary Blood No Growth after 24 hours Assessment and Plan (1) Cholecystitis Status: Acute (2) History of exploratory laparotomy Status: Acute (3) Perforated peptic ulcer Status: Acute Plan: Some order for local wound care were placed. We'll also check a stool for C. diff. The antiemetic as needed. Control blood sugars. Progressing slowly.
--- NOTE | 2017-04-05 13:01 | PN ---
Patient is seen for follow up for acute kidney injury. Patients renal function has been fairly stable for the last few days with serum creatinine actually decreasing from 3.9 on 04/02 to 3.35 now. Currently he is lying in bed, comfortable. He is not in any acute distress. Blood pressure is 144/78, heart rate is 96 per minute. Patient is afebrile. Examination of the heart: S1, S2. Examination of lungs: Bilateral breath sounds are heard. Abdomen is soft, nontender, currently dressed. Examination of lower extremities shows no significant edema. [employer] exam shows no focal deficits. Labs show sodium of 140, potassium 5.1, BUN 84, serum creatinine 3.35, hemoglobin 7.5 g/dL. ASSESSMENT: 1. Acute kidney injury currently slowly improving. Patient is nonoliguric. Etiology was ischemic acute tubular necrosis. 2. Perforated peptic ulcer, status post exploratory laparotomy, open cholecystectomy. 3. Chronic kidney disease stage IIIB/IV with serum creatinine 2.4 from July of 2016 secondary to diabetic kidney disease. PLAN: May continue D5W, consider increasing Acetate in the TPN and monitor hemoglobin. No active bleeding noted at this time. MTDD
[2017-04-05] MEDS: FAT EMULSION 20% 250 ML in EMPTY BAG 1 BAG IV SCH (16:12)
[2017-04-05 17:19] LABS: Glucose,Whole Blood 255 mg/dL (75-99)
[2017-04-05] MEDS: HYDROcodone/APAP 7.5-325MG 1 EACH TAB PO PRN (19:09)
[2017-04-05 20:43] LABS: Glucose,Whole Blood 266 mg/dL (75-99)
[2017-04-06] MEDS: metroNIDAZOLE-NS PMX 500 MG in SALINE 1 100ML.BAG IVPB SCH ×4 (00:26→23:45)
[2017-04-06] MEDS: HEPARIN SODIUM,PORCINE 5,000 UNIT/ML 1 ML VIAL SQ SCH ×4 (00:26→23:45)
[2017-04-06 02:33] LABS: Glucose,Whole Blood 312 mg/dL (75-99)
[2017-04-06] MEDS: INSULIN LISPRO (humaLOG) 300 UNIT/3 ML VIAL SQ SCH ×5 (03:24→21:18)
[2017-04-06] MEDS: HYDROcodone/APAP 7.5-325MG 1 EACH TAB PO PRN ×2 (03:27→17:19)
[2017-04-06] MEDS: MVI, ADULT NO.4 WITH VIT K 10 ML, TRACE (CONC-1ML/DOSE) 1 ML, CALCIUM GLUCONATE 1,000 M... IV SCH ×8 (03:30→22:22)
[2017-04-06] MEDS: DEXTROSE 5% IN WATER 1,000 ML IV SCH (05:50)
[2017-04-06 07:12] LABS: Glucose,Whole Blood 318 mg/dL (75-99)
[2017-04-06 07:31] LABS: Basophils # (A) 0.1 k/uL (0-0.2); Basophils % (A) 1 %; CH 28.4; CHCM 30.6; Eosinophils # (A) 0.3 k/uL (0-0.7); Eosinophils % (A) 3 %; HDW 3.23; HGB 7.4 gm/dL (13.0-17.5); Hypochromasia Moderate; Luc # (Auto) 0.19; Luc % (Auto) 2; Lymphocytes # (A) 0.9 k/uL (1.0-4.8); Lymphocytes % (A) 10 %; MCH 27.6 pg (25.0-35.0); MCHC 29.6 g/dL (31.0-37.0); MCV 93.4 fL (80.0-100.0); Mean Platelet Volume 8.6; Monocytes # (A) 0.6 k/uL (0-1.0); Monocytes % (A) 7 %; Neutrophils # (A) 7.2 k/uL (1.3-7.7); Neutrophils % (A) 78 %; RBC 2.68 m/uL (4.30-5.90); RDW 15.1 % (11.5-15.5); WBC 9.2 k/uL (3.8-10.6); WBC (Perox) 9.92
[2017-04-06] MEDS: IPRATROPIUM-ALBUTEROL 3 ML NEB INHALATION SCH ×4 (07:43→21:42)
[2017-04-06 07:46] LABS: Calcium 7.6 mg/dL (8.4-10.2); Phosphorous 4.4 mg/dL (2.5-4.5); Potassium 4.9 mmol/L (3.5-5.1)
[2017-04-06] MEDS: SODIUM BICARBONATE TAB 650 MG TAB PO SCH ×2 (09:32→21:17)
[2017-04-06] MEDS: PANTOPRAZOLE 40 MG/10 ML VIAL IV SCH ×2 (09:34→21:17)
[2017-04-06] MEDS: CEFTAROLINE FOSAMIL 300 MG in SODIUM CHLORIDE 0.9% 250 ML IVPB SCH ×2 (09:40→21:17)
--- NOTE | 2017-04-06 09:41 | PN ---
The patient is seen for follow-up for acute kidney injury. His renal function has been improving. Serum creatinine is down to 2.8 from 3.3. The patient has good urine output. He is currently awake. Not in any acute distress. Blood pressure is 126/71. Heart rate 88 per minute. He is afebrile. Examination of the heart S1, S2. Examination of the lungs bilateral breath sounds are heard. Abdomen is soft. Nontender. Dressed. 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 Labs shows sodium 140. Potassium 4.9, serum creatinine 2.8. Chloride 113. Hemoglobin 7.4. ASSESSMENT: 1. Acute kidney injury, acute tubular necrosis, currently slowly improving. The patient is nonoliguric with improving renal function. He has an indwelling Castellanos catheter. 2. Status post laparotomy and open cholecystectomy and perforated peptic ulcer. 3. Chronic kidney disease Stage 3B/4 with serum creatinine 2.4 from July 2016 most likely secondary to diabetic kidney disease. PLAN: Increase oral intake. Monitor the metabolic acidosis as CO2 has been staying at 17 to 18. I will add oral sodium bicarb as he is tolerating some oral intake. [facility]
--- NOTE | 2017-04-06 11:29 | P.PN ---
Subjective Principal diagnosis: Status post repair of perforated ulcer The patient's nausea is better. He was able to eat but only a small amount. He had a portion of the chocolate pudding for breakfast. Objective - Vital Signs Vital signs: Vital Signs Temp 97 F L 04/06/17 07:00 Pulse 88 04/06/17 07:58 Resp 18 04/06/17 07:00 BP 126/71 04/06/17 07:00 Pulse Ox 95 04/06/17 07:00 Intake & Output 04/05/17 04/06/17 04/06/17 18:59 06:59 18:59 Intake Total 7527.869 2728 Output Total 2600 1050 Balance -1095.000 795 Weight 96.5 kg Intake: IV 50 650 Fat Emulsion 20% 250 ml 650 In Empty Bag 1 bag @ 21 mls/hr IV DAILY@1400 XENA Rx#:[id number] Fluconazole in NaCl Iso- 50 Osm 100mg in Saline 1 50ml.bag @50mls/hr IVPB Daily Intake, IV Titration 1021.000 975 Amount Ceftaroline Fosamil 300 250 mg In Sodium Chloride 0.9 % 250 ml @ 250 mls/hr IVPB Q12HR XENA Rx#: [id number] Dextrose 5% in Water 1, 625 000 ml @ 50 mls/hr IV . Q20H XENA Rx#:[id number] Mvi, Adult No.4 with Vit 1021.000 K 10 ml Trace (Conc-1Ml/ Dose) 1 ml Calcium Gluconate 1,000 mg In Amino Acid 5%-D15w 1,000 ml @ 50 mls/hr IV . [id number] XENA Rx#:[id number] metroNIDAZOLE-NS PMX 500 100 mg In Saline 1 100ml.bag @ 100 mls/hr IVPB Q8HR XENA Rx#:[id number] Oral 220 TPN/PPN 350 Fluconazole in NaCl Iso- 350 Osm 100mg in Saline 1 50ml.bag @50mls/hr IVPB Daily Lipid 84 Fluconazole in NaCl Iso- 84 Osm 100mg in Saline 1 50ml.bag @50mls/hr IVPB Daily Output: Urine 800 450 Uretheral (Castellanos) 450 Stool 1800 600 Other: Voiding Method Indwelling Catheter Indwelling Catheter # Voids 1 # Bowel Movements 1 ABP, PAP, CO, CI - Last Documented Arterial Blood Pressure 146/54 - Constitutional General appearance: Present: cooperative, no acute distress - Gastrointestinal General gastrointestinal: Present: decreased bowel sounds, soft Localized gastrointestinal: surgical scar: diffuse (No cellulitis. Minimal drainage. I spoke with his nurse who irrigated quite a bit of mucoid material out of the incision yesterday.) - Labs CBC & Chem 7: 04/06/17 06:35 04/06/17 06:35 Labs: Abnormal Lab Results - Last 24 Hours (Table) 04/05/17 04/05/17 04/05/17 Range/Units 11:53 17:17 20:41 RBC (4.30-5.90) m/uL Hgb (13.0-17.5) gm/dL Hct (39.0-53.0) % MCHC (31.0-37.0) g/dL Plt Count (150-450) k/uL Lymphocytes # (1.0-4.8) k/uL Chloride (98-107) mmol/L Carbon Dioxide (22-30) mmol/L BUN (9-20) mg/dL Creatinine (0.66-1.25) mg/dL Glucose (74-99) mg/dL POC Glucose (mg/dL) 167 H 255 H 266 H (75-99) mg/dL Calcium (8.4-10.2) mg/dL 04/06/17 04/06/17 04/06/17 Range/Units 02:31 06:35 06:35 RBC 2.68 L (4.30-5.90) m/uL Hgb 7.4 L (13.0-17.5) gm/dL Hct 25.0 L (39.0-53.0) % MCHC 29.6 L (31.0-37.0) g/dL Plt Count 580 H (150-450) k/uL Lymphocytes # 0.9 L (1.0-4.8) k/uL Chloride 113 H (98-107) mmol/L Carbon Dioxide 17 L (22-30) mmol/L BUN 73 H (9-20) mg/dL Creatinine 2.88 H (0.66-1.25) mg/dL Glucose 321 H (74-99) mg/dL POC Glucose (mg/dL) 312 H (75-99) mg/dL Calcium 7.6 L (8.4-10.2) mg/dL 04/06/17 Range/Units 06:54 RBC (4.30-5.90) m/uL Hgb (13.0-17.5) gm/dL Hct (39.0-53.0) % MCHC (31.0-37.0) g/dL Plt Count (150-450) k/uL Lymphocytes # (1.0-4.8) k/uL Chloride (98-107) mmol/L Carbon Dioxide (22-30) mmol/L BUN (9-20) mg/dL Creatinine (0.66-1.25) mg/dL Glucose (74-99) mg/dL POC Glucose (mg/dL) 318 H (75-99) mg/dL Calcium (8.4-10.2) mg/dL Microbiology - Last 24 Hours (Table) 04/03/17 23:50 Blood Culture - Preliminary Blood No Growth after 48 hours 04/04/17 18:58 Blood Culture - Preliminary Blood No Growth after 24 hours 04/04/17 18:33 Blood Culture - Preliminary Blood No Growth after 24 hours 04/03/17 23:34 Urine Culture - Final Urine,Catheterized Assessment and Plan (1) Cholecystitis Status: Acute (2) History of exploratory laparotomy Status: Acute (3) Perforated peptic ulcer Status: Acute Plan: He does have some loculated fluid collection in his abdomen. He is currently afebrile without leukocytosis. His appetite is still poor so recommend continuing TPN. He's progressing extremely slowly.
[2017-04-06 11:34] LABS: Glucose,Whole Blood 261 mg/dL (75-99)
--- NOTE | 2017-04-06 11:50 | PN ---
DATE OF SERVICE: 04/05/17 This 66 -year-old gentleman who was admitted with acute abdominal pain secondary to acute cholecystitis status post exploratory laparotomy is improving significantly. The patient also had COPD and multiple medical problems. The TPN is being weaned off at this time. PT/OT is evaluating the patient also. Past medical history reviewed. REVIEW OF SYSTEMS: Cardiovascular: No angina. Respiratory: As mentioned earlier. GI: As mentioned earlier. : No dysuria. Nervous system: No numbness. Generalized weakness present. Current medications are reviewed and include: 1. Tylenol 650 q4h prn. 2. [place] 7.5 mg q6h prn. 3. DuoNeb q.i.d. and prn. 5. TPN. 6. Humalog. 7. Narcan. 8. Zofran. 9. Protonix. 10. Amino acids. PHYSICAL EXAMINATION: The patient is alert and oriented times three. Pulse 99. Blood pressure 115/84. Respiratory rate 18. Temperature 97.4. Pulse ox 97% on 2 L. HEENT: Conjunctivae normal. Neck: No JVD. CARDIOVASCULAR: S1, S2 muffled. Respiratory: Breath sounds diminished at the bases. A few scattered rhonchi and crackles. Abdomen soft. Status post surgery. LEGS: No edema. No swelling. SCOUT SNIPER: No focal deficits. Skin: No ulcer, rash or bleeding. LABS: WBC 11, hemoglobin 11.5. Creatinine noted. ASSESSMENT: 1. Acute cholecystitis as well as exploratory laparotomy. 2. Perforated peptic ulcer. 3. Acute renal failure. 4. Chronic obstructive pulmonary disease. 5. Sacral decubitus ulcer. 6. Gait dysfunction. RECOMMENDATIONS AND DISCUSSION: In this 66 -year-old gentleman who presented with multiple medical problems, we will monitor the patient closely. Continue the current medications. Continue symptomatic treatment. Otherwise, I would recommend PT/OT evaluation. Repeat labs. Closely follow. Creatinine 3.35. Guarded prognosis because of multiple complex medical issues. Further recommendations to follow. MTDD
[2017-04-06] MEDS: FAT EMULSION 20% 250 ML in EMPTY BAG 1 BAG IV SCH (14:31)
[2017-04-06 17:10] LABS: Glucose,Whole Blood 231 mg/dL (75-99)
[2017-04-06] MEDS: SODIUM CHLORIDE 0.9% 1,000 ML IV SCH (19:45)
[2017-04-06 20:32] LABS: Glucose,Whole Blood 271 mg/dL (75-99)
[2017-04-07 02:33] LABS: Glucose,Whole Blood 324 mg/dL (75-99)
[2017-04-07] MEDS: INSULIN LISPRO (humaLOG) 300 UNIT/3 ML VIAL SQ SCH ×4 (02:40→23:48)
[2017-04-07] MEDS: MVI, ADULT NO.4 WITH VIT K 10 ML, TRACE (CONC-1ML/DOSE) 1 ML, CALCIUM GLUCONATE 1,000 M... IV SCH ×4 (04:18)
[2017-04-07] MEDS: HYDROcodone/APAP 7.5-325MG 1 EACH TAB PO PRN (04:24)
[2017-04-07] MEDS: IPRATROPIUM-ALBUTEROL 3 ML NEB INHALATION SCH ×4 (07:09→19:54)
--- NOTE | 2017-04-07 07:13 | PN ---
DATE OF SERVICE: 04/06/2017 This 66-year-old gentleman who was admitted after acute cholecystitis, status post exploratory laparotomy also had perforated peptic ulcer also. The patient is being closely monitored at this time. The patient also seen by Nephrology and Surgery also. The patient was thought to have some loculated fluid collection in the abdomen. Surgery recommended to continue with TPN. The creatinine has improved to 2.88. Blood sugar is still elevated. PAST MEDICAL HISTORY: Reviewed. REVIEW OF SYSTEMS: CARDIOVASCULAR: No angina. RESPIRATORY: As mentioned earlier. GI: As mentioned earlier. : No dysuria. NERVOUS SYSTEM: As mentioned earlier. Current medications are reviewed and include: 1. Tylenol. 2. [place]. 3. DuoNeb. 4. P.r.n. medications. PHYSICAL EXAM: The patient is alert and oriented x3. The pulse is 104. Blood pressure is 122/70 , respirations 16, temperature 97.4, pulse ox 90% on room air. HEENT: Conjunctivae normal. NECK: No jugular venous distention. CARDIOVASCULAR: S1 and S2 muffled. RESPIRATORY: Breath sounds diminished at the bases. A few scattered rhonchi and crackles. ABDOMEN: Soft, nontender. No mass palpable. Status post surgery. LEGS: No edema. No swelling. NERVOUS SYSTEM: Higher function as mentioned. Moves all 4 limbs. No focal deficits. LYMPHATICS: No lymphadenopathy of the neck, axillae or groin. LAB INVESTIGATIONS: WBC 9.2, hemoglobin 7.4. Creatinine is 2.88. ASSESSMENT: 1. Acute cholecystitis, status post exploratory laparotomy. 2. Perforated peptic ulcer. 3. Acute renal failure. 4. Chronic obstructive pulmonary disease. 5. On TPN. 6. Sacral decubitus ulcer. 7. Gait dysfunction. RECOMMENDATIONS AND DISCUSSION: Recommend to continue current medications. Continue symptomatic treatment. Otherwise, continue with monitoring the blood sugars. Recommend continue with current medication. I would also recommend changing the IV fluid to 0.9 and continue to monitor. We will monitor the blood sugars closely, which is slightly elevated at this time. Further recommendations to follow. MTDD
[2017-04-07 07:26] LABS: Glucose,Whole Blood 341 mg/dL (75-99)
[2017-04-07] MEDS: PANTOPRAZOLE 40 MG/10 ML VIAL IV SCH ×2 (07:30→22:12)
[2017-04-07] MEDS: HEPARIN SODIUM,PORCINE 5,000 UNIT/ML 1 ML VIAL SQ SCH ×2 (07:30→17:07)
[2017-04-07] MEDS: metroNIDAZOLE-NS PMX 500 MG in SALINE 1 100ML.BAG IVPB SCH ×3 (07:30→22:12)
[2017-04-07 08:22] LABS: Basophils # (A) 0.1 k/uL (0-0.2); Basophils % (A) 1 %; CH 28.5; CHCM 30.6; Eosinophils # (A) 0.3 k/uL (0-0.7); Eosinophils % (A) 3 %; HDW 3.39; HGB 7.6 gm/dL (13.0-17.5); Hypochromasia Moderate; Luc # (Auto) 0.17; Luc % (Auto) 2; Lymphocytes # (A) 1.3 k/uL (1.0-4.8); Lymphocytes % (A) 13 %; MCH 27.3 pg (25.0-35.0); MCHC 29.1 g/dL (31.0-37.0); MCV 93.6 fL (80.0-100.0); Mean Platelet Volume 8.9; Monocytes # (A) 0.6 k/uL (0-1.0); Monocytes % (A) 6 %; Neutrophils # (A) 7.8 k/uL (1.3-7.7); Neutrophils % (A) 77 %; RBC 2.77 m/uL (4.30-5.90); RDW 15.2 % (11.5-15.5); WBC 10.2 k/uL (3.8-10.6); WBC (Perox) 11.11
[2017-04-07 08:45] LABS: Calcium 7.8 mg/dL (8.4-10.2); Magnesium 1.8 mg/dL (1.6-2.3); Phosphorous 3.9 mg/dL (2.5-4.5); Potassium 4.6 mmol/L (3.5-5.1)
[2017-04-07] MEDS: CEFTAROLINE FOSAMIL 300 MG in SODIUM CHLORIDE 0.9% 250 ML IVPB SCH ×2 (08:57→22:04)
[2017-04-07] MEDS: SODIUM BICARBONATE TAB 650 MG TAB PO SCH ×2 (08:58→20:04)
--- NOTE | 2017-04-07 09:06 | P.PN ---
Subjective Principal diagnosis: Status post repair of perforated ulcer The patient is seen on rounds. He still not eating well. He says food makes him nauseous. No vomiting. Objective - Vital Signs Vital signs: Vital Signs Temp 97.1 F L 04/07/17 07:00 Pulse 96 04/07/17 07:21 Resp 18 04/07/17 07:45 BP 133/74 04/07/17 07:00 Pulse Ox 93 L 04/07/17 07:00 Intake & Output 04/06/17 04/07/17 04/07/17 18:59 06:59 18:59 Intake Total 1082 534 Output Total 4200 1400 Balance -3858 -866 Weight 98 kg Intake: IV 300 84 Fat Emulsion 20% 250 ml 250 84 In Empty Bag 1 bag @ 21 mls/hr IV DAILY@1400 XENA Rx#:[id number] Fluconazole in NaCl Iso- 50 Osm 100mg in Saline 1 50ml.bag @50mls/hr IVPB Daily Intake, IV Titration 450 Amount Ceftaroline Fosamil 300 250 mg In Sodium Chloride 0.9 % 250 ml @ 250 mls/hr IVPB Q12HR XENA Rx#: [id number] Sodium Chloride 0.9% 1, 200 000 ml @ 50 mls/hr IV . Q20H XENA Rx#:[id number] Oral 440 TPN/PPN 300 Fluconazole in NaCl Iso- 300 Osm 100mg in Saline 1 50ml.bag @50mls/hr IVPB Daily Lipid 42 Fluconazole in NaCl Iso- 42 Osm 100mg in Saline 1 50ml.bag @50mls/hr IVPB Daily Output: Urine 2400 1400 Uretheral (Castellanos) 700 Stool 1800 Other: Voiding Method Indwelling Catheter Indwelling Catheter Indwelling Catheter # Voids 1 # Bowel Movements 1 ABP, PAP, CO, CI - Last Documented Arterial Blood Pressure 146/54 - Constitutional General appearance: Present: cooperative, no acute distress - Respiratory Respiratory: bilateral: CTA, diminished (At the bases) - Cardiovascular Rhythm: regular - Gastrointestinal General gastrointestinal: Present: normal bowel sounds, soft. Absent: tenderness Localized gastrointestinal: surgical scar: midline (Incisions without cellulitis ) - Labs CBC & Chem 7: 04/07/17 07:56 04/07/17 07:56 Labs: Abnormal Lab Results - Last 24 Hours (Table) 04/06/17 04/06/17 04/06/17 Range/Units 11:22 17:08 20:31 RBC (4.30-5.90) m/uL Hgb (13.0-17.5) gm/dL Hct (39.0-53.0) % MCHC (31.0-37.0) g/dL Plt Count (150-450) k/uL Neutrophils # (1.3-7.7) k/uL Chloride (98-107) mmol/L Carbon Dioxide (22-30) mmol/L BUN (9-20) mg/dL Creatinine (0.66-1.25) mg/dL Glucose (74-99) mg/dL POC Glucose (mg/dL) 261 H 231 H 271 H (75-99) mg/dL Calcium (8.4-10.2) mg/dL 04/07/17 04/07/17 04/07/17 Range/Units 02:32 07:05 07:56 RBC (4.30-5.90) m/uL Hgb (13.0-17.5) gm/dL Hct (39.0-53.0) % MCHC (31.0-37.0) g/dL Plt Count (150-450) k/uL Neutrophils # (1.3-7.7) k/uL Chloride 114 H (98-107) mmol/L Carbon Dioxide 17 L (22-30) mmol/L BUN 68 H (9-20) mg/dL Creatinine 2.64 H (0.66-1.25) mg/dL Glucose 354 H (74-99) mg/dL POC Glucose (mg/dL) 324 H 341 H (75-99) mg/dL Calcium 7.8 L (8.4-10.2) mg/dL 04/07/17 Range/Units 07:56 RBC 2.77 L (4.30-5.90) m/uL Hgb 7.6 L (13.0-17.5) gm/dL Hct 26.0 L (39.0-53.0) % MCHC 29.1 L (31.0-37.0) g/dL Plt Count 603 H (150-450) k/uL Neutrophils # 7.8 H (1.3-7.7) k/uL Chloride (98-107) mmol/L Carbon Dioxide (22-30) mmol/L BUN (9-20) mg/dL Creatinine (0.66-1.25) mg/dL Glucose (74-99) mg/dL POC Glucose (mg/dL) (75-99) mg/dL Calcium (8.4-10.2) mg/dL Microbiology - Last 24 Hours (Table) 04/03/17 23:50 Blood Culture - Preliminary Blood No Growth after 72 hours 04/04/17 18:58 Blood Culture - Preliminary Blood No Growth after 48 hours 04/04/17 18:33 Blood Culture - Preliminary Blood No Growth after 48 hours Assessment and Plan (1) Cholecystitis Status: Acute (2) History of exploratory laparotomy Status: Acute (3) Perforated peptic ulcer Status: Acute Plan: Patient's blood sugars are high on the TPN. His oral intake is still not good. He doesn't appear septic. He has a normal white count and no fever. His abdomen is fairly soft. We'll check a stool for H. pylori continue supportive care
[2017-04-07] MEDS ORDERED: HYDROmorphone 1 MG/ML 1 ML SYRINGE IVP PRN (11:21)
--- NOTE | 2017-04-07 11:21 | PN ---
Patient is seen for followup for acute kidney injury. His renal function continues to improve slowly. He also has significant diarrhea. Patient is currently lying in bed, comfortably. He is not in any acute distress. Blood pressure is 133/74, heart rate is 98/min. He is afebrile. Examination of the heart S1, S2. Examination of the lungs, decreased breath sounds at the bases. Abdomen is soft, nontender and dressing is intact. Examination of the lower extremities shows no significant edema. Labs show sodium 140, potassium 4.6, chloride 114, CO2 is 17, BUN 68, serum creatinine 2.64, hemoglobin 7.6 gm/dL. ASSESSMENT: 1. Acute kidney injury, ATN currently nonoliguric and continuing to improve. 2. Status post cholecystectomy, exploratory laparotomy and ( ) peptic ulcer. 3. Chronic kidney stage IIIB/IV secondary to diabetic kidney disease with baseline creatinine about 2.4 from July of 2016. 4. Metabolic acidosis, currently stable. PLAN: No changes from Nephrology standpoint. Continue with the oral sodium bicarb. MTDD
[2017-04-07 11:31] LABS: Glucose,Whole Blood 311 mg/dL (75-99)
[2017-04-07] MEDS: FAT EMULSION 20% 250 ML in EMPTY BAG 1 BAG IV SCH (14:42)
[2017-04-07 15:51] LABS: Glucose,Whole Blood 288 mg/dL (75-99)
[2017-04-07] MEDS: SODIUM CHLORIDE 0.9% 1,000 ML IV SCH (16:00)
[2017-04-07 16:19] LABS: Glucose,Whole Blood 275 mg/dL (75-99)
--- NOTE | 2017-04-07 16:30 | XR ---
EXAMINATION TYPE: XR chest 1V portable DATE OF EXAM: 04/07/2017 COMPARISON: 04/01/2017 INDICATION: ET tube placement TECHNIQUE: Single frontal view of the chest is obtained. FINDINGS: The heart size is enlarged. The pulmonary vasculature is normal. There are small bilateral pleural effusions. Infiltrate is present at the lung bases. Endotracheal tube is in place with the tip 4 cm above the estela. Nasogastric tube transverses the th orax. Right side PICC line is present with the tip in the proximal right atrium. No pneumothorax is e vident. IMPRESSION: 1. Bilateral pleural effusions and bibasilar infiltrates. 2. Placement of an endotracheal tube and nasogastric tube discussed above
[2017-04-07 16:53] LABS: ABG Base Excess -14.5 mmol/L; ABG HCO3 14 mmol/L (21-25); ABG PCO2 47 mmHg (35-45); ABG PH 7.09 (7.35-7.45); ABG PO2 196 mmHg (83-108); ABG TCO2 15 mmol/L (19-24)
[2017-04-07] MEDS ORDERED: SODIUM CHLORIDE 0.9% 2,000 ML IV ONE (17:04)
--- NOTE | 2017-04-07 17:28 | P.PN ---
Progress Note - Text The patient was transferred to ICU after a CODE BLUE was called. He was intubated and initially responded. Dr. Lopez and myself were talking to family when the patient again developed hypotension and bradycardia. ACLS was reinitiated. He did regain his pulse and blood pressure. Dr. Lopez we'll work on stabilizing him. He'll go down for a computed tomography scan of his head and possibly abdomen to reevaluate the fluid collections. Prognosis is poor. Family was updated
--- NOTE | 2017-04-07 17:45 | P.PN ---
Subjective A 66-year-old male patient who came into the intensive care unit after undergoing expiratory laparotomy and repair of a perforated peptic ulcer with a modified Don patch and open cholecystectomy. Surgery was done last night and the patient was brought into the intensive care unit intubated on a mechanical ventilator. According to the reported history the patient was having 3-4 days history of a vague abdominal pain. This being gradually got worse. The patient was also having constipation. He had some nausea without vomiting. Appetite was diminished. No bright red blood per rectum. The pain was mainly over the central abdomen. No history of any peptic ulcer disease or diverticular disease. The x-ray of the abdomen in the emergency department showed pneumoperitoneum and the CAT scan confirmed the presence of a large volume of free air. The gallbladder was also thickened. The majority of the air was in the upper abdomen. Intraoperatively, the patient was found to have a perforated peptic ulcer and a gangrenous gallbladder. On 03/22/2017 the patient was extubated.. Postextubation, he held himself well. No tachypnea. No respiratory distress. NG tube still in place. The patient's BUN is at 97 creatinine is at 4.5. He was given Lasix IV. He is in significant fluid overload including edema in the lower extremities in the scrotum. Antibiotic coverage includes a combination of Zosyn, daptomycin and Diflucan. Sputum at shown MRSA. 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 He was started on TPN for nutritional support. Following his extubation, the patient had a a difficult and somewhat complicated was operative course. The patient was unable to eat for quite some time. He was supplemented with TPN for nutritional support. He is a also developed bilateral pleural effusion and suspected pneumonia as. He passed a swallow evaluation he was given oral intake yet these oral intake was quite minimal and poor and he was unable to meet his caloric requirements. A repeat CAT scan of the abdomen and pelvis was done on 04/04/2017 it showed cholecystectomy with trace fluid within the gallbladder fossa. It was moderate upper abdominal ascites with a small amount of pelvic fluid. Loculated fluid collection adjacent to the left hepatic lobe and stomach with evidence collected an underlying seroma formation and the possibility of an infected collection was hard to exclude. The patient also had bilateral pleural effusions with compressive atelectasis of the lung bases and the pleural effusions were quite moderate in size. I further reviewed the series of chest x-rays and the last chest x-ray was done on 04/01/2017 which showed bilateral pleural effusions. The patient was further had antibiotic modifications and based on the most recent antibiotic coverage the patient has been on a combination of Teflaro and Flagyl. He has a fecal management system. The patient is producing liquid the stool yet the stool analysis for C. diff was negative on separate occasions. On 04/07/2017 the patient was found to be unresponsive by the nursing staff. He was apparently fine during the day however this afternoon at around 3:30 PM the patient became unresponsive. CODE BLUE was called. He was initially found to be in asystole and based on the code sheet he was asystolic on 1527. The patient was given epinephrine and CPR was initiated. On 1529 he was found to be in V. tach and he was defibrillated with 200 J. He had no pulse for quite some time and his first pulse recovery was at 1539. Levo fed was started at 40 mics. Currently levo fed is still running at 25 mics. The patient has a double -lumen PICC line in the right upper extremity. He is unresponsive for now without sedation. He is on a mechanical ventilator on assist control mode at the rate of 18, tidal volume 500, FiO2 of 100% and PEEP of 5. Blood gases showed a pH of 7.09 with a pCO2 of 47 and pO2 196. Post intubation chest x-ray shows bilateral pleural effusions. ET tube is in a good location. After arriving to the intensive care unit, the patient was being further evaluated and I was in the process of talking to his family when the patient became acutely bradycardic and went to another episodes of PEA. Immediately he was given a sample of epinephrine and an amp of bicarb and he was given few minutes of CPR and following that the blood pressure was reestablished. A Artline catheter was inserted and currently the patient is on 50 mics of levo fed and his most recent blood pressure is 185/70. Castellanos catheter in place and there is no urine output. The patient at times is having tonic jerks which I think it's consistent with an underlying seizure activity. I increased his respiratory rate up to 30 and he remains on a tidal volume of 500 and FiO2 was dropped down to 50%. Contacted the family, discussed the case with his and she'll be arriving to the ICU within the next 20-30 minutes. Updated the brother his condition. The patient is currently unresponsive. Diprivan will be started due to concern of an underlying seizure activity. Hypoxic encephalopathy is being considered based on his recurrent cardiac arrest. Objective - Vital Signs Vital signs: Vital Signs Temp 98.2 F 04/07/17 14:42 Pulse 110 H 04/07/17 14:42 Resp 18 04/07/17 14:42 BP 150/87 04/07/17 14:42 Pulse Ox 92 L 04/07/17 14:42 Intake & Output 04/06/17 04/07/17 04/07/17 18:59 06:59 18:59 Intake Total 1082 534 Output Total 4200 1400 Balance -3118 866 Weight 98 kg 98 kg Intake: IV 300 84 Fat Emulsion 20% 250 ml 250 84 In Empty Bag 1 bag @ 21 mls/hr IV DAILY@1400 [facility] Rx#:[id number] Fluconazole in NaCl Iso- 50 Osm 100mg in Saline 1 50ml.bag @50mls/hr IVPB Daily Intake, IV Titration 450 Amount Ceftaroline Fosamil 300 250 mg In Sodium Chloride 0.9 % 250 ml @ 250 mls/hr IVPB Q12HR [facility] Rx#: [id number] Sodium Chloride 0.9% 1, 200 000 ml @ 50 mls/hr IV . Q20H [facility] Rx#:[id number] Oral 440 TPN/PPN 300 Fluconazole in NaCl Iso- 300 Osm 100mg in Saline 1 50ml.bag @50mls/hr IVPB Daily Lipid 42 Fluconazole in NaCl Iso- 42 Osm 100mg in Saline 1 50ml.bag @50mls/hr IVPB Daily Output: Urine 2400 1400 Uretheral (Castellanos) 700 Stool 1800 Other: Voiding Method Indwelling Catheter Indwelling Catheter Indwelling Catheter # Voids 1 # Bowel Movements 1 ABP, PAP, CO, CI - Last Documented Arterial Blood Pressure 146/54 - Exam Patient unresponsive, intubated on a mechanical ventilator. Orogastric and orotracheal tube are both in place. The patient on and off is having some chronic jerks, probably once every few minutes. He'll be started on Diprivan. EEG is to follow. CAT scan of the brain is to follow.. Head exam was generally normal. There was no scleral icterus or corneal arcus. Mucous membranes were moist.There was no scleral icterus or corneal arcus. Mucous membranes were moist. Neck is supple and there is no JVDs no goiter or neck masses.. The patient also has an orogastric and NG tube in place.Lungs were diminished bilaterally and percussion, and with normal diaphragmatic excursion. No wheezes or rales were noted. Cardiac exam revealed the PMI to be normally situated and sized. The rhythm was regular and no extrasystoles were noted during several minutes of auscultation. The first and second heart sounds were normal and physiologic splitting of the second heart sound was noted. There were no murmurs, rubs, clicks, or gallops. Abdomen is soft. Bowel sounds are absent. There is a midabdominal large skin wound which is dry clean and intact and the patient has an underlying ascites with fluid wave. No direct tenderness. No rebound tenderness. No guarding. 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 Neurologically the patient is awake unresponsive an underlying seizure activity as suspected.. No significant scrotal edema - Labs CBC & Chem 7: 04/07/17 07:56 04/07/17 07:56 Labs: Abnormal Lab Results - Last 24 Hours (Table) 04/06/17 04/06/17 04/07/17 Range/Units 17:08 20:31 02:32 RBC (4.30-5.90) m/uL Hgb (13.0-17.5) gm/dL Hct (39.0-53.0) % MCHC (31.0-37.0) g/dL Plt Count (150-450) k/uL Neutrophils # (1.3-7.7) k/uL Chloride (98-107) mmol/L Carbon Dioxide (22-30) mmol/L BUN (9-20) mg/dL Creatinine (0.66-1.25) mg/dL Glucose (74-99) mg/dL POC Glucose (mg/dL) 231 H 271 H 324 H (75-99) mg/dL Calcium (8.4-10.2) mg/dL 04/07/17 04/07/17 04/07/17 Range/Units 07:05 07:56 07:56 RBC 2.77 L (4.30-5.90) m/uL Hgb 7.6 L (13.0-17.5) gm/dL Hct 26.0 L (39.0-53.0) % MCHC 29.1 L (31.0-37.0) g/dL Plt Count 603 H (150-450) k/uL Neutrophils # 7.8 H (1.3-7.7) k/uL Chloride 114 H (98-107) mmol/L Carbon Dioxide 17 L (22-30) mmol/L BUN 68 H (9-20) mg/dL Creatinine 2.64 H (0.66-1.25) mg/dL Glucose 354 H (74-99) mg/dL POC Glucose (mg/dL) 341 H (75-99) mg/dL Calcium 7.8 L (8.4-10.2) mg/dL 04/07/17 04/07/17 04/07/17 Range/Units 11:23 15:31 15:59 RBC (4.30-5.90) m/uL Hgb (13.0-17.5) gm/dL Hct (39.0-53.0) % MCHC (31.0-37.0) g/dL Plt Count (150-450) k/uL Neutrophils # (1.3-7.7) k/uL Chloride (98-107) mmol/L Carbon Dioxide (22-30) mmol/L BUN (9-20) mg/dL Creatinine (0.66-1.25) mg/dL Glucose (74-99) mg/dL POC Glucose (mg/dL) 311 H 288 H 275 H (75-99) mg/dL Calcium (8.4-10.2) mg/dL Microbiology - Last 24 Hours (Table) 04/03/17 23:50 Blood Culture - Preliminary Blood No Growth after 72 hours 04/04/17 18:58 Blood Culture - Preliminary Blood No Growth after 48 hours 04/04/17 18:33 Blood Culture - Preliminary Blood No Growth after 48 hours Assessment and Plan Plan: Assessment 1 acute cardiac arrest, currently under investigation. The patient coded twice , once on the medical floor with around 14 minutes downtime and another code here in the intensive care unit with treated for minutes of downtime. In both instances the patient received CPR, epinephrine. No defibrillation. Currently is hypotensive on 40 mics of levo fed. An art line catheter was inserted in the patient's pressors have been gradually weaned off. The patient is also receiving 2 L of IV fluid boluses. Further investigation including blood work, CAT scan of the chest abdomen and pelvis, cardiac enzymes are still pending for now. 2 post extra laparotomy and repair of a perforated peptic ulcer a modified Don patch and open cholecystectomy. Patient is postop day #22 . 3 shock secondary to septic in nature secondary to intra-abdominal sepsis complicated by perforated peptic ulcer and cholecystitis. 4 acute respiratory failure, a complication of cardiac arrest 5 acute kidney injury on top of chronic renal failure. The patient's renal function was gradually improving as he was recovering from his abdominal surgery. 6 seizure-like activity, probably related to hypoxic encephalopathy post cardiac arrest. 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 17 Bilateral pleural effusion 18 ascites, with possible infected intra-abdominal fluid related to previous peritonitis and sepsis. Plan Condition is extremely critical. The patient had 2 cardiac arrests back-to- back. The patient is currently in intensive care unit intubated on a mechanical ventilator. Repeat blood gases. Repeat electrolytes and blood work. Obtain cardiac enzymes. Continue with fluid resuscitation and the patient will be given 2 L of bolus of normal saline and pressors are running and this will be gradually weaned off. Monitor urine output. Monitor blood pressure. Start the patient on Diprivan. Diprivan should continue over the next 24 hours and this should help should there be any underlying seizure activity. Obtain EEG. Obtain a CAT scan of the brain. Obtain CAT scan of the chest, abdomen and pelvis, no contrast. Keep the same antibiotic coverage which included a combination of Teflaro and Flagyl. Post intubation chest x- ray was noted. Continue TPN. Obtain blood cultures. Obtain echocardiogram. I contacted the and informed of the above-mentioned changes. The patient' s condition is extremely critical. His baseline performance and functional status is poor. His prolonged hospital course and various comorbidities have made his course even more complicated. His chances of recovery is markedly reduced at this point. Severity of illness is high. Critically care evaluation was done in 40 minutes. Time with Patient: Greater than 30
[2017-04-07 17:49] LABS: Basophils # (A) 0.1 k/uL (0-0.2); Basophils % (A) 0 %; CH 27.6; CHCM 30.1; Eosinophils # (A) 0.2 k/uL (0-0.7); Eosinophils % (A) 1 %; HCT 25.7 % (39.0-53.0); HGB 7.9 gm/dL (13.0-17.5); Hypochromasia Marked; Luc # (Auto) 0.14; Luc % (Auto) 1; Lymphocytes # (A) 2.2 k/uL (1.0-4.8); Lymphocytes % (A) 9 %; MCH 28.5 pg (25.0-35.0); MCHC 30.9 g/dL (31.0-37.0); MCV 92.4 fL (80.0-100.0); Mean Platelet Volume 7.9; Monocytes # (A) 0.7 k/uL (0-1.0); Monocytes % (A) 3 %; Neutrophils # (A) 21.7 k/uL (1.3-7.7); Neutrophils % (A) 87 %; RBC 2.78 m/uL (4.30-5.90); RDW 15.1 % (11.5-15.5); WBC (Perox) 25.26
[2017-04-07 17:51] LABS: Calcium 7.5 mg/dL (8.4-10.2); Magnesium 1.8 mg/dL (1.6-2.3); Potassium 4.6 mmol/L (3.5-5.1); Total Bilirubin 0.4 mg/dL (0.2-1.3); Total Protein 6.1 g/dL (6.3-8.2)
[2017-04-07 17:58] LABS: ABG Base Excess -12.8 mmol/L; ABG HCO3 13 mmol/L (21-25); ABG PCO2 32 mmHg (35-45); ABG PH 7.24 (7.35-7.45); ABG PO2 60 mmHg (83-108); ABG TCO2 14 mmol/L (19-24)
[2017-04-07] MEDS ORDERED: INSULIN REGULAR BOLUS (FROM DRIP BAG) IV PRN (18:00)
[2017-04-07] MEDS ORDERED: PROPOFOL 1,000 MG/100 ML VIAL IV SCH ×2 (18:00→22:45)
[2017-04-07] MEDS ORDERED: INSULIN REGULAR 100 UNIT in SODIUM CHLORIDE 0.9% 100 ML IV SCH (18:00)
--- NOTE | 2017-04-07 18:37 | XR ---
EXAMINATION TYPE: XR abdomen 1V DATE OF EXAM: 04/07/2017 COMPARISON: 03/16/2017 3 views HISTORY: Abdominal pain TECHNIQUE: 3 views FINDINGS: There is some contrast in the colon. There are skin danita in the mid abdomen. There are c lips in the right upper quadrant. There is a nasogastric tube noted. I see no sign of a bowel obstruc tion. There is oral contrast extending down to the rectum. IMPRESSION: Recent surgery. There is clearing of the pneumoperitoneum compared to old exam. No eviden ce of bowel obstruction. No sign of free air.
[2017-04-07 19:43] LABS: Glucose,Whole Blood 235 mg/dL (75-99)
--- NOTE | 2017-04-07 19:45 | P.PN ---
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 [facility] most recently under the care of Dr. Gordon and discharged in August 2016 after a dehiscence of the right below the knee wound healed. Patient presented to [facility] emergency center on March 16 with generalized weakness and abdominal pain for at least couple days up to 1 week with concerns for constipation and was taking laxatives with no improvement. Patient also had decreased appetite and pain was gradually worsening. There was nausea without vomiting. Chest x-ray showed pneumoperitoneum and left basilar atelectasis with no heart failure. Abdominal films also showed pneumoperitoneum. CAT scan of the abdomen and pelvis without contrast and was found have a large pneumoperitoneum, large ascites, large nonobstructive right renal calculi and possible gallbladder thickening with concern for gangrenous gallbladder. Patient was taken to the OR by Dr. Wiley for exploratory laparotomy with repair of perforated peptic ulcer and open cholecystectomy. Patient was then transferred to the intensive care unit where he remains intubated and on mechanical ventilation. Patient presented with severe sepsis and septic shock status post 7 1/2 liters of fluid currently on levo at 20 mics. He did not have a urine output for the day shift thus far. O2 needs have decreased however. He is currently on IV antimicrobials in the form of fluconazole, Flagyl and Zosyn. Blood cultures status received and urine culture status received. C. difficile toxin was negative. Patient is noted to have a stage II decubitus ulcer on his buttocks that was present on admission. The patient did have acute renal failure that has been showing some improvement. He has noted his status was improving but over the weekend was having some difficulty with some leukocytosis and was also having some increasing abdominal pain. Abdominal pain did improve. Computed tomography scan showed evidence of ongoing changes in the abdomen could not completely exclude abscess. With these concerns antibiotic therapy was altered to Ceftaroline and metronidazole. The patient is now suffered a cardiopulmonary arrest, was intubated and mechanically ventilated and again had a cardiopulmonary arrest. Recommend intensive care unit in critical condition. Objective - Vital Signs Vital signs: Vital Signs Temp 98.2 F 04/07/17 14:42 Pulse 110 H 04/07/17 14:42 Resp 18 04/07/17 14:42 BP 150/87 04/07/17 14:42 Pulse Ox 92 L 04/07/17 14:42 Intake & Output 04/07/17 04/07/17 04/08/17 06:59 18:59 06:59 Intake Total 534 Output Total 1400 Balance -866 Weight 98 kg 98 kg Intake: IV 84 Fat Emulsion 20% 250 ml 84 In Empty Bag 1 bag @ 21 mls/hr IV DAILY@1400 XENA Rx#:[id number] Intake, IV Titration 450 Amount Ceftaroline Fosamil 300 250 mg In Sodium Chloride 0.9 % 250 ml @ 250 mls/hr IVPB Q12HR XENA Rx#: [id number] Sodium Chloride 0.9% 1, 200 000 ml @ 50 mls/hr IV . Q20H XENA Rx#:[id number] Output: Urine 1400 Uretheral (Castellanos) 700 Other: Voiding Method Indwelling Catheter Indwelling Catheter ABP, PAP, CO, CI - Last Documented Arterial Blood Pressure 146/54 - Exam Gen: This is an obese 66-year-old male. He is seen in the ICU, he is again intubated sedated and mechanically ventilated requiring vasopressors. HEENT: Head is atraumatic, normocephalic. Oral ET and gastric tube in place. . Mucous membranes are slightly dry.. NECK: Supple. No JVD. No lymphadenopathy. Trachea midline. LUNGS: There is symmetrical air entry bilaterally. Coarse crackles are scattered the lung kraft. Subtly improved when he coughs. Scattered wheezes are also heard. HEART: Regular rate and rhythm. No murmur. Patient is tachycardic. ABDOMEN: Soft. Bowel sounds are present. No masses. minimal tenderness. Dressing to the right upper quadrant and midline are in place with no breakthrough drainage or bleeding. Castellanos catheter in place draining clear pinky urine. Rectal tube in place with thin pasty stool without evidence of blood EXTREMITIES: No pedal edema to the left lower extremity. Patient has amputations of toes 2 through 5 on the left and a right below the knee amputation. All extremities are cool to the touch. No mottling noted. NEUROLOGICAL: Patient is now intubated sedated and mechanically ventilated. Evidence of seizure activity at this time with ongoing facial twitching - Labs CBC & Chem 7: 04/07/17 17:23 04/07/17 17:23 Labs: Abnormal Lab Results - Last 24 Hours (Table) 04/06/17 04/07/17 04/07/17 Range/Units 20:31 02:32 07:05 WBC (3.8-10.6) k/uL RBC (4.30-5.90) m/uL Hgb (13.0-17.5) gm/dL Hct (39.0-53.0) % MCHC (31.0-37.0) g/dL Plt Count (150-450) k/uL Neutrophils # (1.3-7.7) k/uL ABG pH (7.35-7.45) ABG pCO2 (35-45) mmHg ABG pO2 (83-108) mmHg ABG HCO3 (21-25) mmol/L ABG Total CO2 (19-24) mmol/L ABG O2 Saturation (94-97) % Chloride (98-107) mmol/L Carbon Dioxide (22-30) mmol/L BUN (9-20) mg/dL Creatinine (0.66-1.25) mg/dL Glucose (74-99) mg/dL POC Glucose (mg/dL) 271 H 324 H 341 H (75-99) mg/dL Plasma Lactic Acid Mario (0.7-2.0) mmol/L Calcium (8.4-10.2) mg/dL Alkaline Phosphatase (38-126) U/L Total Protein (6.3-8.2) g/dL Albumin (3.5-5.0) g/dL 04/07/17 04/07/17 04/07/17 Range/Units 07:56 07:56 11:23 WBC (3.8-10.6) k/uL RBC 2.77 L (4.30-5.90) m/uL Hgb 7.6 L (13.0-17.5) gm/dL Hct 26.0 L (39.0-53.0) % MCHC 29.1 L (31.0-37.0) g/dL Plt Count 603 H (150-450) k/uL Neutrophils # 7.8 H (1.3-7.7) k/uL ABG pH (7.35-7.45) ABG pCO2 (35-45) mmHg ABG pO2 (83-108) mmHg ABG HCO3 (21-25) mmol/L ABG Total CO2 (19-24) mmol/L ABG O2 Saturation (94-97) % Chloride 114 H (98-107) mmol/L Carbon Dioxide 17 L (22-30) mmol/L BUN 68 H (9-20) mg/dL Creatinine 2.64 H (0.66-1.25) mg/dL Glucose 354 H (74-99) mg/dL POC Glucose (mg/dL) 311 H (75-99) mg/dL Plasma Lactic Acid Mario (0.7-2.0) mmol/L Calcium 7.8 L (8.4-10.2) mg/dL Alkaline Phosphatase (38-126) U/L Total Protein (6.3-8.2) g/dL Albumin (3.5-5.0) g/dL 04/07/17 04/07/17 04/07/17 Range/Units 15:31 15:59 16:48 WBC (3.8-10.6) k/uL RBC (4.30-5.90) m/uL Hgb (13.0-17.5) gm/dL Hct (39.0-53.0) % MCHC (31.0-37.0) g/dL Plt Count (150-450) k/uL Neutrophils # (1.3-7.7) k/uL ABG pH 7.09 L* (7.35-7.45) ABG pCO2 47 H (35-45) mmHg ABG pO2 196 H (83-108) mmHg ABG HCO3 14 L (21-25) mmol/L ABG Total CO2 15 L (19-24) mmol/L ABG O2 Saturation 99.0 H (94-97) % Chloride (98-107) mmol/L Carbon Dioxide (22-30) mmol/L BUN (9-20) mg/dL Creatinine (0.66-1.25) mg/dL Glucose (74-99) mg/dL POC Glucose (mg/dL) 288 H 275 H (75-99) mg/dL Plasma Lactic Acid Mario (0.7-2.0) mmol/L Calcium (8.4-10.2) mg/dL Alkaline Phosphatase (38-126) U/L Total Protein (6.3-8.2) g/dL Albumin (3.5-5.0) g/dL 04/07/17 04/07/17 04/07/17 Range/Units 17:23 17:23 17:23 WBC 25.0 H* (3.8-10.6) k/uL RBC 2.78 L (4.30-5.90) m/uL Hgb 7.9 L (13.0-17.5) gm/dL Hct 25.7 L (39.0-53.0) % MCHC 30.9 L (31.0-37.0) g/dL Plt Count 783 H (150-450) k/uL Neutrophils # 21.7 H (1.3-7.7) k/uL ABG pH (7.35-7.45) ABG pCO2 (35-45) mmHg ABG pO2 (83-108) mmHg ABG HCO3 (21-25) mmol/L ABG Total CO2 (19-24) mmol/L ABG O2 Saturation (94-97) % Chloride 115 H (98-107) mmol/L Carbon Dioxide 14 L (22-30) mmol/L BUN 63 H (9-20) mg/dL Creatinine 2.85 H (0.66-1.25) mg/dL Glucose 262 H (74-99) mg/dL POC Glucose (mg/dL) (75-99) mg/dL Plasma Lactic Acid Mario 6.5 H* (0.7-2.0) mmol/L Calcium 7.5 L (8.4-10.2) mg/dL Alkaline Phosphatase 142 H (38-126) U/L Total Protein 6.1 L (6.3-8.2) g/dL Albumin 2.3 L (3.5-5.0) g/dL 04/07/17 Range/Units 17:49 WBC (3.8-10.6) k/uL RBC (4.30-5.90) m/uL Hgb (13.0-17.5) gm/dL Hct (39.0-53.0) % MCHC (31.0-37.0) g/dL Plt Count (150-450) k/uL Neutrophils # (1.3-7.7) k/uL ABG pH 7.24 L (7.35-7.45) ABG pCO2 32 L (35-45) mmHg ABG pO2 60 L (83-108) mmHg ABG HCO3 13 L (21-25) mmol/L ABG Total CO2 14 L (19-24) mmol/L ABG O2 Saturation 87.0 L (94-97) % Chloride (98-107) mmol/L Carbon Dioxide (22-30) mmol/L BUN (9-20) mg/dL Creatinine (0.66-1.25) mg/dL Glucose (74-99) mg/dL POC Glucose (mg/dL) (75-99) mg/dL Plasma Lactic Acid Mario (0.7-2.0) mmol/L Calcium (8.4-10.2) mg/dL Alkaline Phosphatase (38-126) U/L Total Protein (6.3-8.2) g/dL Albumin (3.5-5.0) g/dL Microbiology - Last 24 Hours (Table) 04/03/17 23:50 Blood Culture - Preliminary Blood No Growth after 72 hours 04/04/17 18:58 Blood Culture - Preliminary Blood No Growth after 48 hours 04/04/17 18:33 Blood Culture - Preliminary Blood No Growth after 48 hours Laboratory Results WBC 25.0 k/uL (3.8-10.6) H* 04/07/17 17:23 RBC 2.78 m/uL (4.30-5.90) L 04/07/17 17:23 Hgb 7.9 gm/dL (13.0-17.5) L 04/07/17 17:23 Hct 25.7 % (39.0-53.0) L 04/07/17 17:23 MCV 92.4 fL (80.0-100.0) 04/07/17 17:23 MCH 28.5 pg (25.0-35.0) 04/07/17 17:23 MCHC 30.9 g/dL (31.0-37.0) L 04/07/17 17:23 RDW 15.1 % (11.5-15.5) 04/07/17 17:23 Plt Count 783 k/uL (150-450) H 04/07/17 17:23 Neutrophils % 87 % 04/07/17 17:23 Neutrophils % (Manual) 61.6 % 03/17/17 04:20 Band Neutrophils % 15.2 % 03/17/17 04:20 Lymphocytes % 9 % 04/07/17 17:23 Lymphocytes % (Manual) 18.2 % 03/17/17 04:20 Monocytes % 3 % 04/07/17 17:23 Monocytes % (Manual) 5.1 % 03/17/17 04:20 Eosinophils % 1 % 04/07/17 17:23 Basophils % 0 % 04/07/17 17:23 Metamyelocytes % 4.0 % 03/16/17 22:50 Neutrophils # 21.7 k/uL (1.3-7.7) H 04/07/17 17:23 Neutrophils # (Manual) 7.1 k/uL (1.3-7.7) 03/17/17 04:20 Lymphocytes # 2.2 k/uL (1.0-4.8) 04/07/17 17:23 Lymphocytes # (Manual) 1.7 k/uL (1.0-4.8) 03/17/17 04:20 Monocytes # 0.7 k/uL (0-1.0) 04/07/17 17:23 Monocytes # (Manual) 0.5 k/uL (0-1.0) 03/17/17 04:20 Eosinophils # 0.2 k/uL (0-0.7) 04/07/17 17:23 Basophils # 0.1 k/uL (0-0.2) 04/07/17 17:23 Nucleated RBCs 0 /100 WBC (0-0) 03/17/17 04:20 Manual Slide Review Performed 03/17/17 04:20 Toxic Granulation Present 03/16/17 16:30 RBC Morphology Normal 03/16/17 16:30 Hypochromasia Marked 04/07/17 17:23 Anisocytosis Slight 03/27/17 03:39 PT 10.4 sec (9.0-12.0) 03/16/17 16:30 INR 1.0 (<1.2) 03/16/17 16:30 APTT 22.1 sec (22.0-30.0) 03/16/17 16:30 Sample Site [place] 04/07/17 17:49 ABG pH 7.24 (7.35-7.45) L 04/07/17 17:49 ABG pCO2 32 mmHg (35-45) L 04/07/17 17:49 ABG pO2 60 mmHg (83-108) L 04/07/17 17:49 ABG HCO3 13 mmol/L (21-25) L 04/07/17 17:49 ABG Total CO2 14 mmol/L (19-24) L 04/07/17 17:49 ABG O2 Saturation 87.0 % (94-97) L 04/07/17 17:49 ABG Base Excess -12.8 mmol/L 04/07/17 17:49 ABG Hematocrit 29 % (34.0-46.0) L 03/16/17 21:12 ABG Lactic Acid 0.7 mmol/L (0.5-1.6) 03/20/17 04:45 VBG pH 7.25 (7.31-7.41) L 03/16/17 16:30 VBG pCO2 29 mmHg (37-51) L 03/16/17 16:30 VBG HCO3 12 mmol/L (24-28) L 03/16/17 16:30 FiO2 50 % 04/07/17 17:49 Sodium 143 mmol/L (137-145) 04/07/17 17:23 Potassium 4.6 mmol/L (3.5-5.1) 04/07/17 17:23 Chloride 115 mmol/L (98-107) H 04/07/17 17:23 Carbon Dioxide 14 mmol/L (22-30) L 04/07/17 17:23 Anion Gap 14 mmol/L 04/07/17 17:23 BUN 63 mg/dL (9-20) H 04/07/17 17:23 Creatinine 2.85 mg/dL (0.66-1.25) H 04/07/17 17:23 Est GFR (MDRD) Af Amer 27 (>60 ml/min/1.73 sqM) 04/07/17 17:23 Est GFR (MDRD) Non-Af 22 (>60 ml/min/1.73 sqM) 04/07/17 17:23 Glucose 262 mg/dL (74-99) H 04/07/17 17:23 POC Glucose (mg/dL) 235 mg/dL (75-99) H 04/07/17 19:41 POC Glu [employer] ID Levar Ding 04/07/17 19:[address] Glu mg/dL 174 mg/dL 03/17/17 04:20 Hemoglobin A1c 7.7 % (4.2-6.1) H 03/17/17 04:20 Lactic Ac Sepsis Rflx Y 03/16/17 16:57 Plasma Lactic Acid Mario 6.5 mmol/L (0.7-2.0) H* 04/07/17 17:23 Calcium 7.5 mg/dL (8.4-10.2) L 04/07/17 17:23 Ionized Calcium Valorie 5.0 mg/dL (4.5-5.3) 04/05/17 06:54 Phosphorus 3.9 mg/dL (2.5-4.5) 04/07/17 07:56 Magnesium 1.8 mg/dL (1.6-2.3) 04/07/17 17:23 Total Bilirubin 0.4 mg/dL (0.2-1.3) 04/07/17 17:23 AST 33 U/L (17-59) 04/07/17 17:23 ALT 29 U/L (21-72) 04/07/17 17:23 Alkaline Phosphatase 142 U/L (38-126) H 04/07/17 17:23 Total Creatine Kinase 216 U/L (55-170) H 03/16/17 16:30 CK-MB (CK-2) 2.9 ng/mL (0.0-2.4) H* 03/16/17 16:30 CK-MB (CK-2) Rel Index 1.3 03/16/17 16:30 Troponin I 0.590 ng/mL (0.000-0.034) H* 03/16/17 16:30 Total Protein 6.1 g/dL (6.3-8.2) L 04/07/17 17:23 Albumin 2.3 g/dL (3.5-5.0) L 04/07/17 17:23 Triglycerides 121 mg/dL (<150) 04/05/17 06:54 TSH 0.672 mIU/L (0.465-4.680) 03/16/17 16:30 Urine Color Yellow 04/03/17 23:34 Urine Appearance Cloudy (Clear) 04/03/17 23:34 Urine pH 5.5 (5.0-8.0) 04/03/17 23:34 Ur Specific [place] 1.014 (1.001-1.035) 04/03/17 23:34 Urine Protein 1+ (Negative) H 04/03/17 23:34 Urine Glucose (UA) Negative (Negative) 04/03/17 23:34 Urine Ketones Negative (Negative) 04/03/17 23:34 Urine Blood Small (Negative) H 04/03/17 23:34 Urine Nitrite Negative (Negative) 04/03/17 23:34 Urine Bilirubin Negative (Negative) 04/03/17 23:34 Urine Urobilinogen <2.0 mg/dL (<2.0) 04/03/17 23:34 Ur Leukocyte Esterase Small (Negative) H 04/03/17 23:34 Urine RBC 5 /hpf (0-5) 04/03/17 23:34 Urine WBC 9 /hpf (0-5) H 04/03/17 23:34 Ur Squamous Epith Cells 2 /hpf (0-4) 04/03/17 23:34 Amorphous Sediment Occasional /hpf (None) H 04/03/17 23:34 Urine Bacteria Rare /hpf (None) H 04/03/17 23:34 Hyaline Casts 12 /lpf (0-2) H 03/31/17 10:20 Granular Casts 2 /lpf (0) 03/31/17 10:20 Urine Mucus Rare /hpf (None) H 04/03/17 23:34 Urine Eosinophils 0 % 03/31/17 10:20 Random Vancomycin 17.6 ug/mL 04/04/17 07:41 C. difficile (EIA) Intrp Negative (Negative) 04/06/17 09:15 Blood Type A Positive 03/28/17 10:58 Blood Type Recheck No 03/28/17 10:58 Antibody Screen NEGATIVE 03/28/17 10:58 Crossmatch See Detail 03/28/17 10:58 Spec Expiration Date 03/31/2017 2497 03/28/17 10:58 Microbiology 04/03/17 23:50 Blood Blood Culture - Preliminary No Growth after 72 hours 04/04/17 18:58 Blood Blood Culture - Preliminary No Growth after 48 hours 04/04/17 18:33 Blood Blood Culture - Preliminary No Growth after 48 hours 04/03/17 23:34 Urine,Catheterized Urine Culture - Final 03/23/17 08:00 Peritoneal Fluid Gram Stain - Final 03/23/17 08:00 Peritoneal Fluid Body Fluid Culture - Final 03/16/17 16:30 Blood Blood Culture - Final No Growth after 144 hours 03/18/17 02:25 Sputum Gram Stain - Final 03/18/17 02:25 Sputum Sputum Culture - Final Methicillin resist S. aureus 03/16/17 19:00 Urine,Voided Urine Culture - Final Assessment and Plan (1) Septic shock Narrative/Plan: 66-year-old male with multiple medical troubles with left toe amputations and right below-knee amputation due to his severe peripheral vascular disease. Now presents with a significant bout of sepsis from the abdomen. Has evidence of pneumoperitoneum. Perforated gastric ulcer was noted. As well as gangrenous cholecystitis. He's had the surgical incision is noted. Now improving from his septic shock. For sepsis from the abdominal source in the condition of the perforation and gangrenous cholecystitis was initially treated with antifungal therapy with fluconazole. Piperacillin tazobactam is being dosed per his renal failure. Has a history of MRSA as well as VRE infection. Daptomycin was being utilized. However MRSA was found in the pulmonary secretions. Was changed to vancomycin and that no VRE has now been isolated from his abdominal cultures. Concerns related to his acute renal failure. Will be monitored closely. Cultures are in process. Supportive care continues. Patient had a very difficult morning. He developed worsening abdominal pain. Computed tomography scan has been performed showing evidence of some fluid in the area where the gallbladder was present. Still some fluid intra-abdominally and abscess cannot be excluded. With the patient's increased pain, his fever and leukocytosis antimicrobial therapy was altered to Ceftaroline with metronidazole An cultures are in process. Patient has suffered a cardiopulmonary arrest with profound acidosis. His leukocytosis is increased on the basis of the cardiopulmonary arrest. No new positive cultures are noted. Prognosis is extremely poor and this is being related to the family this evening. Status: Acute (2) Gastric perforation Status: Acute (3) Cholecystitis Status: Acute
[2017-04-07 20:55] LABS: Glucose,Whole Blood 223 mg/dL (75-99)
[2017-04-07 21:59] VITALS: BP 113/63
[2017-04-07 22:10] LABS: Glucose,Whole Blood 142 mg/dL (75-99)
[2017-04-07 23:08] LABS: Glucose,Whole Blood 110 mg/dL (75-99)
[2017-04-08 00:12] LABS: Glucose,Whole Blood 95 mg/dL (75-99)
[2017-04-08] MEDS: HEPARIN SODIUM,PORCINE 5,000 UNIT/ML 1 ML VIAL SQ SCH ×3 (00:15→16:09)
--- NOTE | 2017-04-08 01:03 | CT ---
EXAM: CT Head Without Intravenous Contrast CLINICAL HISTORY: Cardiac arrest TECHNIQUE: Axial computed tomography images of the head/brain without intravenous contrast. CTDI is 57.40 mGy and DLP is 1050.7 mGy-cm. This CT exam was performed using one or more of the following dose reduction techniques: automated exposure control, adjustment of the mA and/or kV according to patient size, and/or use of iterative reconstruction technique. COMPARISON: No relevant prior studies available. FINDINGS: Brain: No acute intracranial hemorrhage, loss of paulino-white differentiation, or significant mass effect. Areas of hypoattenuation in the periventricular white matter bilaterally are compatible with the sequela of chronic small vessel ischemic disease. Ventricular and sulcal prominence. Ventricles: Unremarkable. No ventriculomegaly. Bones/joints: Unremarkable. No acute fracture. Soft tissues: Unremarkable. Sinuses: High density material is present in the left maxillary sinus. Mastoid air cells: Unremarkable. IMPRESSION: No acute intracranial abnormality. Nonspecific high density material in the left maxillary sinus can be seen in the setting of fungal sinusitis.
--- NOTE | 2017-04-08 01:17 | CT ---
EXAM: CT Chest Without Intravenous Contrast CLINICAL HISTORY: Reason: cardiac arrest TECHNIQUE: Axial computed tomography images of the chest without intravenous contrast. CTDI is 20.60 mGy and DLP is 1514.50 mGy-cm. This CT exam was performed using one or more of the following dose reduction techniques: automated exposure control, adjustment of the mA and/or kV according to patient size, and/or use of iterative reconstruction technique. COMPARISON: No relevant prior studies available. FINDINGS: Lungs: Bilateral dependent densities are compatible with atelectasis. A superimposed infectious or inflammatory process is not excluded. Pleural space: Large bilateral pleural effusions. No pneumothorax. Heart: Unremarkable. No cardiomegaly. No significant pericardial effusion. Mediastinum: Debris in the trachea is nonspecific and may represent inspissated secretions or aspiration. Bones/joints: Nondisplaced bilateral anterior left 3-6th rib fractures. Mild degenerative changes of the spine. No acute osseous abnormality. Soft tissues: Unremarkable. Vasculature: Atherosclerosis of the coronary arteries. No pericardial effusion. Enlarged main pulmonary artery can be seen in the setting of pulmonary arterial hypertension. Lymph nodes: Unremarkable. Tubes, lines and devices: Right PICC terminates near the cavoatrial junction. Endotracheal tube terminates 3.2 cm above the estela. IMPRESSION: 1. Large bilateral pleural effusions. 2. Bilateral dependent densities are compatible with atelectasis. A superimposed infectious or inflammatory process is not excluded. 3. Nondisplaced bilateral anterior left 3-6th rib fractures may be related to cardiopulmonary resuscitation. EXAM: CT Abdomen and Pelvis Without Intravenous Contrast CLINICAL HISTORY: Reason: cardiac arrest TECHNIQUE: Axial computed tomography images of the abdomen and pelvis without intravenous contrast. CTDI is 20.60 mGy and DLP is 1514.50 mGy-cm. This CT exam was performed using one or more of the following dose reduction techniques: automated exposure control, adjustment of the mA and/or kV according to patient size, and/or use of iterative reconstruction technique. COMPARISON: 04/04/2017 FINDINGS: Lower thorax: Esophagogastric tube terminates in the body of the stomach. ABDOMEN: Liver: Interval decrease in size of perihepatic fluid collection. Gallbladder and bile ducts: The gallbladder surgically absent. Pancreas: Unremarkable. Spleen: Interval decrease in size of a perisplenic fluid collection. Adrenals: Unremarkable. Kidneys and ureters: 16 mm right ureteropelvic junction calculus. An additional 4 mm calculus is present in the right renal pelvis. Punctate left nephrolithiasis. No hydronephrosis. Stomach and bowel: Contrast is present in the nondilated colon. Small bowel is nondilated. Appendix: No findings to suggest acute appendicitis. PELVIS: Bladder: A Castellanos catheter is present in the partially decompressed urinary bladder. No stones. Reproductive: Unremarkable as visualized. ABDOMEN and PELVIS: Intraperitoneal space: Stable small amount of abdominal ascites. Bones/joints: No acute osseous abnormality. Soft tissues: Skin danita are present in the midline ventral abdominal wall. Diffuse subcutaneous edema is suggestive of anasarca. Small bilateral fat-containing inguinal hernias. Vasculature: Unremarkable. No abdominal aortic aneurysm. Lymph nodes: Unremarkable. Tubes, lines and devices: A rectal catheter is noted. IMPRESSION: No acute findings. Decreasing perisplenic and perihepatic fluid collections. Stable small amount of abdominal ascites. No free air or bowel obstruction.
[2017-04-08 02:11] LABS: Glucose,Whole Blood 104 mg/dL (75-99)
[2017-04-08 04:25] LABS: ABG PH 7.42 (7.35-7.45)
[2017-04-08 04:26] LABS: ABG Base Excess -7.9 mmol/L; ABG HCO3 16 mmol/L (21-25); ABG PCO2 25 mmHg (35-45); ABG PO2 132 mmHg (83-108); ABG TCO2 17 mmol/L (19-24)
[2017-04-08 04:27] LABS: Glucose,Whole Blood 117 mg/dL (75-99)
[2017-04-08 04:55] LABS: Calcium 7.4 mg/dL (8.4-10.2); Magnesium 1.6 mg/dL (1.6-2.3); Phosphorous 3.5 mg/dL (2.5-4.5); Potassium 4.1 mmol/L (3.5-5.1)
[2017-04-08] MEDS: MAGNESIUM SULFATE-D5W PMX 1 GM in DEXTROSE/WATER 1 100ML.BAG IVPB SCH ×4 (06:47→21:01)
--- NOTE | 2017-04-08 06:56 | XR ---
EXAMINATION TYPE: XR chest 1V portable DATE OF EXAM: 04/08/2017 HISTORY: mechanical ventilation. REFERENCE: Previous study dated 04/07/2017. FINDINGS: Patient is ET tube and NG tube remain in place, unchanged in appearance. There is bibasilar airspace disease. There are bilateral effusions. This is very similar appearance t o the previous study. The heart is not enlarged. IMPRESSION: NO SIGNIFICANT INTERVAL CHANGE IN THE APPEARANCE OF THE CHEST.
[2017-04-08] MEDS: IPRATROPIUM-ALBUTEROL 3 ML NEB INHALATION SCH ×4 (07:27→19:53)
[2017-04-08 07:47] LABS: Basophils # (A) 0.1 k/uL (0-0.2); Basophils % (A) 0 %; CH 27.9; CHCM 31.6; Eosinophils # (A) 0.1 k/uL (0-0.7); Eosinophils % (A) 1 %; HCT 23.8 % (39.0-53.0); HGB 7.5 gm/dL (13.0-17.5); Hypochromasia Moderate; Luc # (Auto) 0.18; Luc % (Auto) 1; Lymphocytes # (A) 1.2 k/uL (1.0-4.8); Lymphocytes % (A) 7 %; MCH 27.9 pg (25.0-35.0); MCHC 31.4 g/dL (31.0-37.0); MCV 88.9 fL (80.0-100.0); Mean Platelet Volume 8.1; Monocytes # (A) 0.8 k/uL (0-1.0); Monocytes % (A) 5 %; Neutrophils # (A) 15.4 k/uL (1.3-7.7); Neutrophils % (A) 87 %; Poikilocytosis Slight; RBC 2.68 m/uL (4.30-5.90); RDW 15.3 % (11.5-15.5); WBC 17.8 k/uL (3.8-10.6); WBC (Perox) 18.29
[2017-04-08] MEDS ORDERED: SODIUM CHLORIDE 0.45% 1,000 ML with SODIUM BICARB (1 MEQ/ML) 100 ML IV SCH ×2 (08:00)
--- NOTE | 2017-04-08 08:17 | P.PN ---
Subjective A 66-year-old male patient who came into the intensive care unit after undergoing expiratory laparotomy and repair of a perforated peptic ulcer with a modified Don patch and open cholecystectomy. Surgery was done last night and the patient was brought into the intensive care unit intubated on a mechanical ventilator. According to the reported history the patient was having 3-4 days history of a vague abdominal pain. This being gradually got worse. The patient was also having constipation. He had some nausea without vomiting. Appetite was diminished. No bright red blood per rectum. The pain was mainly over the central abdomen. No history of any peptic ulcer disease or diverticular disease. The x-ray of the abdomen in the emergency department showed pneumoperitoneum and the CAT scan confirmed the presence of a large volume of free air. The gallbladder was also thickened. The majority of the air was in the upper abdomen. Intraoperatively, the patient was found to have a perforated peptic ulcer and a gangrenous gallbladder. On 03/22/2017 the patient was extubated.. Postextubation, he held himself well. No tachypnea. No respiratory distress. NG tube still in place. The patient's BUN is at 97 creatinine is at 4.5. He was given Lasix IV. He is in significant fluid overload including edema in the lower extremities in the scrotum. Antibiotic coverage includes a combination of Zosyn, daptomycin and Diflucan. Sputum at shown MRSA. 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 He was started on TPN for nutritional support. Following his extubation, the patient had a a difficult and somewhat complicated was operative course. The patient was unable to eat for quite some time. He was supplemented with TPN for nutritional support. He is a also developed bilateral pleural effusion and suspected pneumonia as. He passed a swallow evaluation he was given oral intake yet these oral intake was quite minimal and poor and he was unable to meet his caloric requirements. A repeat CAT scan of the abdomen and pelvis was done on 04/04/2017 it showed cholecystectomy with trace fluid within the gallbladder fossa. It was moderate upper abdominal ascites with a small amount of pelvic fluid. Loculated fluid collection adjacent to the left hepatic lobe and stomach with evidence collected an underlying seroma formation and the possibility of an infected collection was hard to exclude. The patient also had bilateral pleural effusions with compressive atelectasis of the lung bases and the pleural effusions were quite moderate in size. I further reviewed the series of chest x-rays and the last chest x-ray was done on 04/01/2017 which showed bilateral pleural effusions. The patient was further had antibiotic modifications and based on the most recent antibiotic coverage the patient has been on a combination of Teflaro and Flagyl. He has a fecal management system. The patient is producing liquid the stool yet the stool analysis for C. diff was negative on separate occasions. On 04/07/2017 the patient was found to be unresponsive by the nursing staff. He was apparently fine during the day however this afternoon at around 3:30 PM the patient became unresponsive. CODE BLUE was called. He was initially found to be in asystole and based on the code sheet he was asystolic on 1527. The patient was given epinephrine and CPR was initiated. On 1529 he was found to be in V. tach and he was defibrillated with 200 J. He had no pulse for quite some time and his first pulse recovery was at 1539. Levo fed was started at 40 mics. Currently levo fed is still running at 25 mics. The patient has a double -lumen PICC line in the right upper extremity. He is unresponsive for now without sedation. He is on a mechanical ventilator on assist control mode at the rate of 18, tidal volume 500, FiO2 of 100% and PEEP of 5. Blood gases showed a pH of 7.09 with a pCO2 of 47 and pO2 196. Post intubation chest x-ray shows bilateral pleural effusions. ET tube is in a good location. After arriving to the intensive care unit, the patient was being further evaluated and I was in the process of talking to his family when the patient became acutely bradycardic and went to another episodes of PEA. Immediately he was given a sample of epinephrine and an amp of bicarb and he was given few minutes of CPR and following that the blood pressure was reestablished. A Artline catheter was inserted and currently the patient is on 50 mics of levo fed and his most recent blood pressure is 185/70. Castellanos catheter in place and there is no urine output. The patient at times is having tonic jerks which I think it's consistent with an underlying seizure activity. I increased his respiratory rate up to 30 and he remains on a tidal volume of 500 and FiO2 was dropped down to 50%. Contacted the family, discussed the case with his and she'll be arriving to the ICU within the next 20-30 minutes. Updated the brother his condition. The patient is currently unresponsive. Diprivan will be started due to concern of an underlying seizure activity. Hypoxic encephalopathy is being considered based on his recurrent cardiac arrest. on 04/08/2017 the patient is being seen in follow-up. As mentioned , the patient got moved to the intensive care unit after a CODE BLUE on a cardiac arrest. this morning the patient remains intubated on a mechanical ventilator. he is also on sedation with Diprivan which is currently running at 20 mics. On and off he gives a myoclonic jerk and this occurs approximately once every hour. is a very short-acting jerks. I am suspecting underlying seizure activity probably related to hypoxic encephalopathy at the time of cardiac arrest. The patient did not have any significant neurological deficits prior to this event. Meanwhile Derrick he remains on assist control mode at the rate of 30, FiO2 of 60% , tidal volume of 500 and a PEEP of 5. The blood gases from this morning showed a pH of 7.42 with a pCO2 of 24 and pO2 132. The patient had a chest x- ray this morning that showed large bilateral pleural effusions. ET tube is in a good location. CAT scan of the chest was done yesterday and it showed moderate -sized right-sided pleural effusion and compressive atelectasis in lung bases bilaterally. also, CAT scan of the abdomen and pelvis showed ascites and perihepatic fluid which is decreased in size. no other intra-abdominal complications. CAT scan of the brain was essentially negative. the patient he is producing approximately 20 mL's an hour of urine output. the pressors have been weaned off and discontinued overnight and currently he is off the levo fed. He is maintaining his own pressure. he is on IV fluids and currently receiving normal saline at the rate of 50 mL an hour. TPN will be renewed. he received a total of 2 L of IV fluid bolus yesterday. Discussed the case with infectious disease and we decided to keep the same antibiotic coverage. The patient is currently on a combination of Teflaro Flagyl. Echocardiogram is to follow. EEG is to follow. neurologic consultation is to follow regarding possibility of hypoxic/anoxic encephalopathy. Family was informed yesterday about the situation. . the . Talked to the brother at length. Objective - Vital Signs Vital signs: Vital Signs Temp 98.9 F 04/08/17 07:00 Pulse 102 H 04/08/17 07:55 Resp 30 H 04/08/17 07:00 BP 113/63 04/07/17 21:00 Pulse Ox 97 04/08/17 07:00 Intake & Output 04/07/17 04/08/17 04/08/17 18:59 06:59 18:59 Intake Total 828.949 Output Total 150 362 27 Balance -150 466.949 -27 Weight 98 kg 101.1 kg Intake: IV 750 0.9 500 Ceftaroline Fosamil 300 250 mg In Sodium Chloride 0.9 % 250 ml @ 250 mls/hr IVPB Q12HR XENA Rx#: [id number] Intake, IV Titration 78.949 Amount Insulin Regular 100 unit 78.949 In Sodium Chloride 0.9% 100 ml @ Per Protocol IV .Q0M XENA Rx#:[id number] Output: Urine 150 362 27 Other: Voiding Method Indwelling Catheter Indwelling Catheter ABP, PAP, CO, CI - Last Documented Arterial Blood Pressure 125/64 - Exam Patient unresponsive, intubated on a mechanical ventilator. Orogastric and orotracheal tube are both in place. The patient on and off is having some chronic jerks, probably once every few minutes. He'll be started on Diprivan. EEG is to follow. CAT scan of the brain is to follow.. Head exam was generally normal. There was no scleral icterus or corneal arcus. Mucous membranes were moist.There was no scleral icterus or corneal arcus. Mucous membranes were moist. Neck is supple and there is no JVDs no goiter or neck masses.. The patient also has an orogastric and NG tube in place.Lungs were diminished bilaterally and percussion, and with normal diaphragmatic excursion. No wheezes or rales were noted. Cardiac exam revealed the PMI to be normally situated and sized. The rhythm was regular and no extrasystoles were noted during several minutes of auscultation. The first and second heart sounds were normal and physiologic splitting of the second heart sound was noted. There were no murmurs, rubs, clicks, or gallops. Abdomen is soft. Bowel sounds are absent. There is a midabdominal large skin wound which is dry clean and intact and the patient has an underlying ascites with fluid wave. No direct tenderness. No rebound tenderness. No guarding. 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 Neurologically the patient is awake unresponsive an underlying seizure activity as suspected.. No significant scrotal edema - Labs CBC & Chem 7: 04/08/17 04:30 04/08/17 04:30 Labs: Abnormal Lab Results - Last 24 Hours (Table) 04/07/17 04/07/17 04/07/17 Range/Units 07:56 07:56 11:23 WBC (3.8-10.6) k/uL RBC 2.77 L (4.30-5.90) m/uL Hgb 7.6 L (13.0-17.5) gm/dL Hct 26.0 L (39.0-53.0) % MCHC 29.1 L (31.0-37.0) g/dL Plt Count 603 H (150-450) k/uL Neutrophils # 7.8 H (1.3-7.7) k/uL ABG pH (7.35-7.45) ABG pCO2 (35-45) mmHg ABG pO2 (83-108) mmHg ABG HCO3 (21-25) mmol/L ABG Total CO2 (19-24) mmol/L ABG O2 Saturation (94-97) % Chloride 114 H (98-107) mmol/L Carbon Dioxide 17 L (22-30) mmol/L BUN 68 H (9-20) mg/dL Creatinine 2.64 H (0.66-1.25) mg/dL Glucose 354 H (74-99) mg/dL POC Glucose (mg/dL) 311 H (75-99) mg/dL Plasma Lactic Acid Mario (0.7-2.0) mmol/L Calcium 7.8 L (8.4-10.2) mg/dL Alkaline Phosphatase (38-126) U/L Total Protein (6.3-8.2) g/dL Albumin (3.5-5.0) g/dL 04/07/17 04/07/17 04/07/17 Range/Units 15:31 15:59 16:48 WBC (3.8-10.6) k/uL RBC (4.30-5.90) m/uL Hgb (13.0-17.5) gm/dL Hct (39.0-53.0) % MCHC (31.0-37.0) g/dL Plt Count (150-450) k/uL Neutrophils # (1.3-7.7) k/uL ABG pH 7.09 L* (7.35-7.45) ABG pCO2 47 H (35-45) mmHg ABG pO2 196 H (83-108) mmHg ABG HCO3 14 L (21-25) mmol/L ABG Total CO2 15 L (19-24) mmol/L ABG O2 Saturation 99.0 H (94-97) % Chloride (98-107) mmol/L Carbon Dioxide (22-30) mmol/L BUN (9-20) mg/dL Creatinine (0.66-1.25) mg/dL Glucose (74-99) mg/dL POC Glucose (mg/dL) 288 H 275 H (75-99) mg/dL Plasma Lactic Acid Mario (0.7-2.0) mmol/L Calcium (8.4-10.2) mg/dL Alkaline Phosphatase (38-126) U/L Total Protein (6.3-8.2) g/dL Albumin (3.5-5.0) g/dL 04/07/17 04/07/17 04/07/17 Range/Units 17:23 17:23 17:23 WBC 25.0 H* (3.8-10.6) k/uL RBC 2.78 L (4.30-5.90) m/uL Hgb 7.9 L (13.0-17.5) gm/dL Hct 25.7 L (39.0-53.0) % MCHC 30.9 L (31.0-37.0) g/dL Plt Count 783 H (150-450) k/uL Neutrophils # 21.7 H (1.3-7.7) k/uL ABG pH (7.35-7.45) ABG pCO2 (35-45) mmHg ABG pO2 (83-108) mmHg ABG HCO3 (21-25) mmol/L ABG Total CO2 (19-24) mmol/L ABG O2 Saturation (94-97) % Chloride 115 H (98-107) mmol/L Carbon Dioxide 14 L (22-30) mmol/L BUN 63 H (9-20) mg/dL Creatinine 2.85 H (0.66-1.25) mg/dL Glucose 262 H (74-99) mg/dL POC Glucose (mg/dL) (75-99) mg/dL Plasma Lactic Acid Mario 6.5 H* (0.7-2.0) mmol/L Calcium 7.5 L (8.4-10.2) mg/dL Alkaline Phosphatase 142 H (38-126) U/L Total Protein 6.1 L (6.3-8.2) g/dL Albumin 2.3 L (3.5-5.0) g/dL 04/07/17 04/07/17 04/07/17 Range/Units 17:49 19:41 20:50 WBC (3.8-10.6) k/uL RBC (4.30-5.90) m/uL Hgb (13.0-17.5) gm/dL Hct (39.0-53.0) % MCHC (31.0-37.0) g/dL Plt Count (150-450) k/uL Neutrophils # (1.3-7.7) k/uL ABG pH 7.24 L (7.35-7.45) ABG pCO2 32 L (35-45) mmHg ABG pO2 60 L (83-108) mmHg ABG HCO3 13 L (21-25) mmol/L ABG Total CO2 14 L (19-24) mmol/L ABG O2 Saturation 87.0 L (94-97) % Chloride (98-107) mmol/L Carbon Dioxide (22-30) mmol/L BUN (9-20) mg/dL Creatinine (0.66-1.25) mg/dL Glucose (74-99) mg/dL POC Glucose (mg/dL) 235 H 223 H (75-99) mg/dL Plasma Lactic Acid Mario (0.7-2.0) mmol/L Calcium (8.4-10.2) mg/dL Alkaline Phosphatase (38-126) U/L Total Protein (6.3-8.2) g/dL Albumin (3.5-5.0) g/dL 04/07/17 04/07/17 04/07/17 Range/Units 21:15 22:07 23:06 WBC (3.8-10.6) k/uL RBC (4.30-5.90) m/uL Hgb (13.0-17.5) gm/dL Hct (39.0-53.0) % MCHC (31.0-37.0) g/dL Plt Count (150-450) k/uL Neutrophils # (1.3-7.7) k/uL ABG pH (7.35-7.45) ABG pCO2 (35-45) mmHg ABG pO2 (83-108) mmHg ABG HCO3 (21-25) mmol/L ABG Total CO2 (19-24) mmol/L ABG O2 Saturation (94-97) % Chloride (98-107) mmol/L Carbon Dioxide (22-30) mmol/L BUN (9-20) mg/dL Creatinine (0.66-1.25) mg/dL Glucose (74-99) mg/dL POC Glucose (mg/dL) 142 H 110 H (75-99) mg/dL Plasma Lactic Acid Mario 3.9 H* (0.7-2.0) mmol/L Calcium (8.4-10.2) mg/dL Alkaline Phosphatase (38-126) U/L Total Protein (6.3-8.2) g/dL Albumin (3.5-5.0) g/dL 04/08/17 04/08/17 04/08/17 Range/Units 02:07 03:41 04:25 WBC (3.8-10.6) k/uL RBC (4.30-5.90) m/uL Hgb (13.0-17.5) gm/dL Hct (39.0-53.0) % MCHC (31.0-37.0) g/dL Plt Count (150-450) k/uL Neutrophils # (1.3-7.7) k/uL ABG pH (7.35-7.45) ABG pCO2 25 L (35-45) mmHg ABG pO2 132 H (83-108) mmHg ABG HCO3 16 L (21-25) mmol/L ABG Total CO2 17 L (19-24) mmol/L ABG O2 Saturation 99.0 H (94-97) % Chloride (98-107) mmol/L Carbon Dioxide (22-30) mmol/L BUN (9-20) mg/dL Creatinine (0.66-1.25) mg/dL Glucose (74-99) mg/dL POC Glucose (mg/dL) 104 H 117 H (75-99) mg/dL Plasma Lactic Acid Mario (0.7-2.0) mmol/L Calcium (8.4-10.2) mg/dL Alkaline Phosphatase (38-126) U/L Total Protein (6.3-8.2) g/dL Albumin (3.5-5.0) g/dL 04/08/17 04/08/17 Range/Units 04:30 04:30 WBC 17.8 H (3.8-10.6) k/uL RBC 2.68 L (4.30-5.90) m/uL Hgb 7.5 L (13.0-17.5) gm/dL Hct 23.8 L (39.0-53.0) % MCHC (31.0-37.0) g/dL Plt Count 624 H (150-450) k/uL Neutrophils # 15.4 H (1.3-7.7) k/uL ABG pH (7.35-7.45) ABG pCO2 (35-45) mmHg ABG pO2 (83-108) mmHg ABG HCO3 (21-25) mmol/L ABG Total CO2 (19-24) mmol/L ABG O2 Saturation (94-97) % Chloride 119 H (98-107) mmol/L Carbon Dioxide 14 L (22-30) mmol/L BUN 67 H (9-20) mg/dL Creatinine 3.04 H (0.66-1.25) mg/dL Glucose 111 H (74-99) mg/dL POC Glucose (mg/dL) (75-99) mg/dL Plasma Lactic Acid Mario (0.7-2.0) mmol/L Calcium 7.4 L (8.4-10.2) mg/dL Alkaline Phosphatase (38-126) U/L Total Protein (6.3-8.2) g/dL Albumin (3.5-5.0) g/dL Microbiology - Last 24 Hours (Table) 04/07/17 20:05 Gram Stain - Preliminary Sputum Sputum Culture - Preliminary 04/03/17 23:50 Blood Culture - Preliminary Blood No Growth after 96 hours 04/04/17 18:58 Blood Culture - Preliminary Blood No Growth after 72 hours 04/04/17 18:33 Blood Culture - Preliminary Blood No Growth after 72 hours Assessment and Plan Plan: Assessment 1 acute cardiac arrest, currently under investigation. The patient coded twice , once on the medical floor with around 14 minutes downtime and another code here in the intensive care unit with treated for minutes of downtime. In both instances the patient received CPR, epinephrine. No defibrillation. hemodynamically improved compared to yesterday. The patient is currently off pressors. Maintaining his own blood pressure. Suspect underlying hypoxic/ anoxic encephalopathy. The patient is having on and off myoclonic jerks. EEG is to follow. CAT scan of the brain is essentially negative. 2 post extra laparotomy and repair of a perforated peptic ulcer a modified Don patch and open cholecystectomy. Patient is postop day #23 . 3 History of shock secondary to septic in nature secondary to intra-abdominal sepsis complicated by perforated peptic ulcer and cholecystitis. this was treated earlier with a combination of antibiotics. Subsequent CAT scan of the abdomen showed ascites and perihepatic fluid plan the most recent CAT scan if shown decrease in the size of the fluid collection. 4 acute respiratory failure, a complication of cardiac arrest 5 acute kidney injury on top of chronic renal failure. 6 seizure-like activity, probably related to hypoxic encephalopathy post cardiac arrest. suspected myoclonic jerks related to hypoxic encephalopathy post cardiac arrest 7 diabetes mellitus with poorly controlled blood sugar my currently on TPN 8 diabetic peripheral neuropathy 9 severe peripheral vascular disease with below-knee amputation on the right and multiple complications the left foot 10 congestion heart failure 11 diabetic retinopathy and the patient is legally blind 12 previous MRSA and VRE infection of the left and right feet, diabetic foot ulcers 13 stage II sacral decub ulcer 14 basal cell carcinoma of the skin 15 acid reflux 16 MRSA in the sputum, likely a colonizer. 17 Bilateral pleural effusion , moderate to large in size along with compressive atelectasis of the lung bases bilaterally. 18 ascites, with possible infected intra-abdominal fluid related to previous peritonitis and sepsis. Plan Condition is extremely critical. The patient had 2 cardiac arrests back-to- back. The patient is currently in intensive care unit intubated on a mechanical ventilator. EEG to follow. Echocardiogram is to follow. neurology consultation is to follow. CAT scan of the brain was noted. CAT scan of the chest abdomen and pelvis was noted. we'll give the patient Lasix 60 mg IV push 1 monitored urine output. We'll try to get him in a negative fluid balance of possible especially with the ascitic fluid in the fluid overload and about the pleural effusions that he has developed during the hospitalization. restart TPN. Restart insulin drip if needed for blood sugar control. Continue same antibiotic coverage. outcome essentially dependent on his neurologic status. There is a suspicion of the patient has suffered significant neurologic injury erythematous cardiac arrest despite the short downtime. continue to follow make further recommendations based on his progress. We'll have been discussed with the family. is a critically care evaluation that was done in 40 minutes. Time with Patient: Greater than 30
[2017-04-08] MEDS: metroNIDAZOLE-NS PMX 500 MG in SALINE 1 100ML.BAG IVPB SCH ×2 (08:19→16:09)
[2017-04-08] MEDS: PANTOPRAZOLE 40 MG/10 ML VIAL IV SCH ×2 (08:22→21:45)
[2017-04-08] MEDS: CHLORHEXIDINE GLUCONATE 15 ML CUP MUCOUS MEM SCH ×2 (08:22→21:01)
[2017-04-08 08:23] LABS: Glucose,Whole Blood 135 mg/dL (75-99)
--- NOTE | 2017-04-08 08:28 | PN ---
The patient is seen for follow up of acute kidney injury. Yesterday, patient coded. He actually had two episodes of cardiac arrest. He is currently on the ventilator and on sedation. He has not received any TPN. Urine output has been borderline. Serum creatinine is higher. Hemoglobin was at 7.5. His CO2 is at 14. Serum creatinine 3.0 today. On examination, blood pressure 125/64. Heart rate 102 per minute. The patient is afebrile. Examination of the heart, S1, S2. examination of the lungs, decreased breath sounds at the bases. Bilateral breath sounds heard. The abdomen is currently with a dressing and intact. Examination of the lower extremities shows edema 1+ bilaterally. Labs show sodium 144, potassium 4.1, chloride 119. CO2 14, BUN 67, serum creatinine 3.04. Hemoglobin 7.5. ASSESSMENT: 1. Acute kidney injury, acute tubular necrosis, it was improving. Renal function was again secondary to cardiac arrest. Continue to monitor for now. Maintain the patient on IV fluids until TPN has been restarted. 2. Metabolic acidosis secondary to diarrhea, currently non-gap metabolic acidosis. We will start IV bicarb. The patient has been maintained on oral sodium bicarb which we can continue down the feeding tube. 3. Status post cholecystectomy. Exploratory laparotomy and perforated peptic ulcer. 4. Status post cardiac arrest times two. 5. Vent dependent respiratory failure. 6. Chronic kidney disease, Stage IIIB/IV secondary to diabetic kidney disease with previous creatinine about 2.4 in July 2016. NKF Stage IV. PLAN: Start IV bicarb. Continue with oral sodium bicarb. Start TPN with sodium acetate on the higher side to help with metabolic acidosis. Continue to avoid nephrotoxic agents. MTDD
[2017-04-08] MEDS ORDERED: SODIUM ACETATE IV ONE ×2 (08:30)
[2017-04-08] MEDS ORDERED: WATER IV ONE ×2 (08:30)
[2017-04-08] MEDS ORDERED: DEXTROSE 5% IV ONE ×2 (08:30)
[2017-04-08] MEDS: CEFTAROLINE FOSAMIL 300 MG in SODIUM CHLORIDE 0.9% 250 ML IVPB SCH ×2 (09:10→21:02)
[2017-04-08] MEDS: SODIUM BICARBONATE TAB 650 MG TAB PO SCH ×2 (09:10→21:01)
[2017-04-08] MEDS ORDERED: FUROSEMIDE 10 MG/ML 10 ML VIAL IV STA (09:18)
--- NOTE | 2017-04-08 09:25 | PN ---
This 66-year-old gentleman admitted cholecystectomy had multiple complex medical issues. Patient also had perforated peptic ulcerations also. The patient had significant difficulties in keeping food down. Patient complaining of severe anorexia also. The patient was found to be unresponsive and after CPR the patient was transferred to ICU and mechanically ventilated intubated also. Dr. Lopez has been consulted for ICU management. PAST MEDICAL HISTORY: Reviewed. REVIEW OF SYSTEMS: CARDIOVASCULAR: No angina. RESPIRATORY: As mentioned earlier. GI: As mentioned earlier. : No dysuria. NERVOUS SYSTEM: As mentioned earlier. Current medications are reviewed and include: 1. Tylenol. 2. [place] 7.5 mg. 3. DuoNeb q.i.d. and p.r.n. 4. TPN. 5. Ceftaroline. 6. Flagyl. 7. Narcan. 8. Zofran. 9. P.r.n. medications. PHYSICAL EXAMINATION: The pulse is 110, blood pressure 150/87, respirations 18 , temperature 98.2, pulse ox 92% on room air. HEENT: Conjunctivae normal. NECK: No jugular venous distention. CARDIOVASCULAR: S1 and S2 muffled. RESPIRATORY: Breath sounds diminished at the bases. Bilateral scattered rhonchi and crackles. ABDOMEN: Soft. Status post surgery. LEGS: No edema. NERVOUS SYSTEM: No focal deficits. LABS: WBC 25, hemoglobin 7.9. Sodium 143, potassium 4.6. Lactic acid 6.5. ASSESSMENT; 1. Acute cholecystitis, status post exploratory laparotomy. 2. Cardiopulmonary arrest, status post CPR and acute respiratory failure, on mechanical ventilation. 4. Perforated peptic ulcer. 5. Possible sepsis. 6. Acute renal failure. 7. Chronic obstructive pulmonary disease. 8. On TPN. 9. Sacral decubitus ulcer. 10. Gait dysfunction. RECOMMENDATIONS AND DISCUSSION: Recommend to continue the current medication, continue symptomatic treatment. Otherwise at this time, transfer to ICU, pressor support. Will continue with empiric antibiotics. Closely monitor with infectious disease and as well as Dr. Lopez, Nephrology. The patient has multiple complex medical issues as mentioned earlier. Will also recommend a cardiology evaluation as well. Further recommendations to follow. A set of troponins also will be requested. CHANTELLE
[2017-04-08] MEDS: SODIUM CHLORIDE 0.9% 1,000 ML IV SCH ×2 (09:37→16:17)
[2017-04-08] MEDS ORDERED: MVI, ADULT NO.4 WITH VIT K 10 ML, TRACE (CONC-1ML/DOSE) 1 ML, CALCIUM GLUCONATE 1,000 M... IV SCH ×5 (10:00)
--- NOTE | 2017-04-08 10:06 | P.PN ---
Subjective Principal diagnosis: Status post repair of perforated ulcer The patient is seen on rounds. He's been on pressors. Urine output is borderline. Still ventilated. Objective - Vital Signs Vital signs: Vital Signs Temp 99.1 F 04/08/17 08:00 Pulse 113 H 04/08/17 09:00 Resp 32 H 04/08/17 09:00 BP 113/63 04/07/17 21:00 Pulse Ox 99 04/08/17 09:00 Intake & Output 04/07/17 04/08/17 04/08/17 18:59 06:59 18:59 Intake Total 828.949 524.978 Output Total 150 362 47 Balance -150 466.949 477.978 Weight 98 kg 101.1 kg Intake: IV 750 400 0.9 500 50 Ceftaroline Fosamil 300 250 250 mg In Sodium Chloride 0.9 % 250 ml @ 250 mls/hr IVPB Q12HR [facility] Rx#: [id number] metroNIDAZOLE-NS PMX 500 100 mg In Saline 1 100ml.bag @ 100 mls/hr IVPB Q8HR [facility] Rx#:[id number] Intake, IV Titration 78.949 124.978 Amount Insulin Regular 100 unit 78.949 In Sodium Chloride 0.9% 100 ml @ Per Protocol IV .Q0M [facility] Rx#:[id number] Propofol 1,000 mg In 100 54.978 ml @ Titrate IV .Q0M [facility] Rx#:[id number] Sodium Acetate 100 meq In 70 Dextrose 5% in Water 1, 000 ml @ 70 mls/hr IV ONCE ONE Rx#:[id number] Output: Urine 150 362 47 Other: Voiding Method Indwelling Catheter Indwelling Catheter ABP, PAP, CO, CI - Last Documented Arterial Blood Pressure 127/62 - Constitutional Constitutional Comment(s): Sedated on the ventilator. - Respiratory Respiratory: bilateral: diminished - Cardiovascular Rhythm: other (Tachycardic) - Gastrointestinal General gastrointestinal: Present: soft Localized gastrointestinal: surgical scar: midline (No cellulitis) - Labs CBC & Chem 7: 04/08/17 04:30 04/08/17 04:30 Labs: Abnormal Lab Results - Last 24 Hours (Table) 04/07/17 04/07/17 04/07/17 Range/Units 11:23 15:31 15:59 WBC (3.8-10.6) k/uL RBC (4.30-5.90) m/uL Hgb (13.0-17.5) gm/dL Hct (39.0-53.0) % MCHC (31.0-37.0) g/dL Plt Count (150-450) k/uL Neutrophils # (1.3-7.7) k/uL ABG pH (7.35-7.45) ABG pCO2 (35-45) mmHg ABG pO2 (83-108) mmHg ABG HCO3 (21-25) mmol/L ABG Total CO2 (19-24) mmol/L ABG O2 Saturation (94-97) % Chloride (98-107) mmol/L Carbon Dioxide (22-30) mmol/L BUN (9-20) mg/dL Creatinine (0.66-1.25) mg/dL Glucose (74-99) mg/dL POC Glucose (mg/dL) 311 H 288 H 275 H (75-99) mg/dL Plasma Lactic Acid Mario (0.7-2.0) mmol/L Calcium (8.4-10.2) mg/dL Alkaline Phosphatase (38-126) U/L Total Protein (6.3-8.2) g/dL Albumin (3.5-5.0) g/dL 04/07/17 04/07/17 04/07/17 Range/Units 16:48 17:23 17:23 WBC 25.0 H* (3.8-10.6) k/uL RBC 2.78 L (4.30-5.90) m/uL Hgb 7.9 L (13.0-17.5) gm/dL Hct 25.7 L (39.0-53.0) % MCHC 30.9 L (31.0-37.0) g/dL Plt Count 783 H (150-450) k/uL Neutrophils # 21.7 H (1.3-7.7) k/uL ABG pH 7.09 L* (7.35-7.45) ABG pCO2 47 H (35-45) mmHg ABG pO2 196 H (83-108) mmHg ABG HCO3 14 L (21-25) mmol/L ABG Total CO2 15 L (19-24) mmol/L ABG O2 Saturation 99.0 H (94-97) % Chloride 115 H (98-107) mmol/L Carbon Dioxide 14 L (22-30) mmol/L BUN 63 H (9-20) mg/dL Creatinine 2.85 H (0.66-1.25) mg/dL Glucose 262 H (74-99) mg/dL POC Glucose (mg/dL) (75-99) mg/dL Plasma Lactic Acid Mario (0.7-2.0) mmol/L Calcium 7.5 L (8.4-10.2) mg/dL Alkaline Phosphatase 142 H (38-126) U/L Total Protein 6.1 L (6.3-8.2) g/dL Albumin 2.3 L (3.5-5.0) g/dL 04/07/17 04/07/17 04/07/17 Range/Units 17:23 17:49 19:41 WBC (3.8-10.6) k/uL RBC (4.30-5.90) m/uL Hgb (13.0-17.5) gm/dL Hct (39.0-53.0) % MCHC (31.0-37.0) g/dL Plt Count (150-450) k/uL Neutrophils # (1.3-7.7) k/uL ABG pH 7.24 L (7.35-7.45) ABG pCO2 32 L (35-45) mmHg ABG pO2 60 L (83-108) mmHg ABG HCO3 13 L (21-25) mmol/L ABG Total CO2 14 L (19-24) mmol/L ABG O2 Saturation 87.0 L (94-97) % Chloride (98-107) mmol/L Carbon Dioxide (22-30) mmol/L BUN (9-20) mg/dL Creatinine (0.66-1.25) mg/dL Glucose (74-99) mg/dL POC Glucose (mg/dL) 235 H (75-99) mg/dL Plasma Lactic Acid Mario 6.5 H* (0.7-2.0) mmol/L Calcium (8.4-10.2) mg/dL Alkaline Phosphatase (38-126) U/L Total Protein (6.3-8.2) g/dL Albumin (3.5-5.0) g/dL 04/07/17 04/07/17 04/07/17 Range/Units 20:50 21:15 22:07 WBC (3.8-10.6) k/uL RBC (4.30-5.90) m/uL Hgb (13.0-17.5) gm/dL Hct (39.0-53.0) % MCHC (31.0-37.0) g/dL Plt Count (150-450) k/uL Neutrophils # (1.3-7.7) k/uL ABG pH (7.35-7.45) ABG pCO2 (35-45) mmHg ABG pO2 (83-108) mmHg ABG HCO3 (21-25) mmol/L ABG Total CO2 (19-24) mmol/L ABG O2 Saturation (94-97) % Chloride (98-107) mmol/L Carbon Dioxide (22-30) mmol/L BUN (9-20) mg/dL Creatinine (0.66-1.25) mg/dL Glucose (74-99) mg/dL POC Glucose (mg/dL) 223 H 142 H (75-99) mg/dL Plasma Lactic Acid Mario 3.9 H* (0.7-2.0) mmol/L Calcium (8.4-10.2) mg/dL Alkaline Phosphatase (38-126) U/L Total Protein (6.3-8.2) g/dL Albumin (3.5-5.0) g/dL 04/07/17 04/08/17 04/08/17 Range/Units 23:06 02:07 03:41 WBC (3.8-10.6) k/uL RBC (4.30-5.90) m/uL Hgb (13.0-17.5) gm/dL Hct (39.0-53.0) % MCHC (31.0-37.0) g/dL Plt Count (150-450) k/uL Neutrophils # (1.3-7.7) k/uL ABG pH (7.35-7.45) ABG pCO2 25 L (35-45) mmHg ABG pO2 132 H (83-108) mmHg ABG HCO3 16 L (21-25) mmol/L ABG Total CO2 17 L (19-24) mmol/L ABG O2 Saturation 99.0 H (94-97) % Chloride (98-107) mmol/L Carbon Dioxide (22-30) mmol/L BUN (9-20) mg/dL Creatinine (0.66-1.25) mg/dL Glucose (74-99) mg/dL POC Glucose (mg/dL) 110 H 104 H (75-99) mg/dL Plasma Lactic Acid Mario (0.7-2.0) mmol/L Calcium (8.4-10.2) mg/dL Alkaline Phosphatase (38-126) U/L Total Protein (6.3-8.2) g/dL Albumin (3.5-5.0) g/dL 04/08/17 04/08/17 04/08/17 Range/Units 04:25 04:30 04:30 WBC 17.8 H (3.8-10.6) k/uL RBC 2.68 L (4.30-5.90) m/uL Hgb 7.5 L (13.0-17.5) gm/dL Hct 23.8 L (39.0-53.0) % MCHC (31.0-37.0) g/dL Plt Count 624 H (150-450) k/uL Neutrophils # 15.4 H (1.3-7.7) k/uL ABG pH (7.35-7.45) ABG pCO2 (35-45) mmHg ABG pO2 (83-108) mmHg ABG HCO3 (21-25) mmol/L ABG Total CO2 (19-24) mmol/L ABG O2 Saturation (94-97) % Chloride 119 H (98-107) mmol/L Carbon Dioxide 14 L (22-30) mmol/L BUN 67 H (9-20) mg/dL Creatinine 3.04 H (0.66-1.25) mg/dL Glucose 111 H (74-99) mg/dL POC Glucose (mg/dL) 117 H (75-99) mg/dL Plasma Lactic Acid Mario (0.7-2.0) mmol/L Calcium 7.4 L (8.4-10.2) mg/dL Alkaline Phosphatase (38-126) U/L Total Protein (6.3-8.2) g/dL Albumin (3.5-5.0) g/dL 04/08/17 Range/Units 08:21 WBC (3.8-10.6) k/uL RBC (4.30-5.90) m/uL Hgb (13.0-17.5) gm/dL Hct (39.0-53.0) % MCHC (31.0-37.0) g/dL Plt Count (150-450) k/uL Neutrophils # (1.3-7.7) k/uL ABG pH (7.35-7.45) ABG pCO2 (35-45) mmHg ABG pO2 (83-108) mmHg ABG HCO3 (21-25) mmol/L ABG Total CO2 (19-24) mmol/L ABG O2 Saturation (94-97) % Chloride (98-107) mmol/L Carbon Dioxide (22-30) mmol/L BUN (9-20) mg/dL Creatinine (0.66-1.25) mg/dL Glucose (74-99) mg/dL POC Glucose (mg/dL) 135 H (75-99) mg/dL Plasma Lactic Acid Mario (0.7-2.0) mmol/L Calcium (8.4-10.2) mg/dL Alkaline Phosphatase (38-126) U/L Total Protein (6.3-8.2) g/dL Albumin (3.5-5.0) g/dL Microbiology - Last 24 Hours (Table) 04/07/17 20:05 Gram Stain - Preliminary Sputum Sputum Culture - Preliminary 04/03/17 23:50 Blood Culture - Preliminary Blood No Growth after 96 hours 04/04/17 18:58 Blood Culture - Preliminary Blood No Growth after 72 hours 04/04/17 18:33 Blood Culture - Preliminary Blood No Growth after 72 hours Assessment and Plan (1) Cholecystitis Status: Acute (2) History of exploratory laparotomy Status: Acute (3) Perforated peptic ulcer Status: Acute Plan: The patient is much less acidotic today overall condition is poor. Continue Medical care. The fluid collections in the abdomen are diminishing in size. I do not feel that he has any abdominal source of sepsis.
[2017-04-08 10:30] VITALS: BMI 31.9
[2017-04-08 11:38] LABS: Hemoglobin A1C 7.9 % (4.2-6.1)
[2017-04-08] MEDS: levETIRAcetam IV 1,000 MG in SALINE 1 100ML.BAG IVPB SCH ×2 (11:53→21:02)
[2017-04-08] MEDS: 1: MVI, ADULT NO.4 WITH VIT K 10 ML, TRACE (CONC-1ML/DOSE) 1 ML, CALCIUM GLUCONATE 1,000 IV SCH ×5 (11:53)
[2017-04-08] MEDS: INSULIN LISPRO (humaLOG) 300 UNIT/3 ML VIAL SQ SCH ×3 (11:54→21:01)
[2017-04-08 11:55] LABS: Glucose,Whole Blood 157 mg/dL (75-99)
--- NOTE | 2017-04-08 11:55 | ECHOF ---
Referral Reason:cardiac arrest, bed side MEASUREMENTS -------- HEIGHT: 177.8 cm WEIGHT: 100.7 kg BP: 146/73 RVIDd: 3.7 cm (< 3.3) IVSd: 1.2 cm (0.6 - 1.1) LVIDd: 4.0 cm (3.9 - 5.3) LVPWd: 1.1 cm (0.6 - 1.1) IVSs: 1.8 cm LVIDs: 2.5 cm LVPWs: 2.0 cm LA Diam: 3.6 cm (2.7 - 3.8) LAESV Index (A-L): 30.51 ml/m Ao Diam: 3.5 cm (2.0 - 3.7) AV Cusp: 1.9 cm (1.5 - 2.6) MV EXCURSION: 19.783 mm (> 18.000) MV EF SLOPE: 131 mm/s (70 - 150) EPSS: 1.2 cm RAP: 5.00 mmHg RVSP: 32.30 mmHg FINDINGS -------- This was a technically adequate study. The left ventricular size is normal. There is borderline concentric left ventricular hypertrophy. Overall left ventricular systolic function is mildly impaired with, an EF between 45 - 50 %. Basal inferior LV wall motion is hypokinetic. Mid inferior LV wall motion is hypokinetic. The right ventricle is mildly enlarged. LA is midly dilated 29-33ml/m2. The right atrium is normal in size. Aortic valve is trileaflet and is mildly thickened. The mitral valve leaflets are mildly thickened. Mild mitral annular calcification present. Mild tricuspid regurgitation present. Right ventricular systolic pressure is normal at < 35 mmHg. The pulmonic valve was not well visualized. The aortic root size is normal. The inferior vena cava is mildly dilated. There is no pericardial effusion. CONCLUSIONS -------- 1. This was a technically adequate study. 2. Aortic valve is trileaflet and is mildly thickened. 3. The mitral valve leaflets are mildly thickened. 4. Mild mitral annular calcification present. 5. Mild tricuspid regurgitation present. 6. Right ventricular systolic pressure is normal at < 35 mmHg. 7. The pulmonic valve was not well visualized. 8. The aortic root size is normal. 9. The inferior vena cava is mildly dilated. 10. There is no pericardial effusion. 11. The left ventricular size is normal. 12. There is borderline concentric left ventricular hypertrophy. 13. Overall left ventricular systolic function is mildly impaired with, an EF between 45 - 50 %. 14. Basal inferior LV wall motion is hypokinetic. 15. Mid inferior LV wall motion is hypokinetic. 16. The right ventricle is mildly enlarged. 17. LA is midly dilated 29-33ml/m2. 18. The right atrium is normal in size. DRESS FITTER: Shoshana Salcedo RDCS
--- NOTE | 2017-04-08 13:43 | P.PN ---
Subjective Patient is a 66-year-old admitted on March 16 for open cholecystectomy expiratory laparotomy and repair of the gastric ulcer patient has a highly complicated hospitalization course and post surgical course including pneumoperitoneum. Presently patient is on TPN which is being switched to oral diet. Patient is on broad-spectrum antibiotics for intra-abdominal source of infection Patient apparently was doing well and less today and patient had an episode of cardio pulmonary arrest and patient was resuscitated twice. At this time patient is intubated patient is having active seizures and is on IV Right this time. Patient does have pupillary reflex but absent gag reflex and patient is not breathing over the vent although the set up respiratory rate of on ventilator is around 30. Patient has significant anoxic brain injury evidenced by status epilepticus. Neurology was consulted. At extensive discussion with the family today his prognosis is externally poor and the chance of reasonable neurological recovery is extremely slim same thing was discussed with the family and we're awaiting neurology recommendations and most probable and reasonable course would be terminal extubation and comfort care. Same thing was discussed with the family today. Objective - Vital Signs Vital signs: Vital Signs Temp 99.1 F 04/08/17 12:00 Pulse 109 H 04/08/17 12:00 Resp 30 H 04/08/17 12:00 BP 113/63 04/07/17 21:00 Pulse Ox 98 04/08/17 12:00 Intake & Output 04/07/17 04/08/17 04/08/17 18:59 06:59 18:59 Intake Total 828.949 954.978 Output Total 150 362 77 Balance -150 466.949 877.978 Weight 98 kg 101.1 kg 101.1 kg Intake: IV 750 400 0.9 500 50 Ceftaroline Fosamil 300 250 250 mg In Sodium Chloride 0.9 % 250 ml @ 250 mls/hr IVPB Q12HR [facility] Rx#: [id number] metroNIDAZOLE-NS PMX 500 100 mg In Saline 1 100ml.bag @ 100 mls/hr IVPB Q8HR [facility] Rx#:[id number] Intake, IV Titration 78.949 554.978 Amount Insulin Regular 100 unit 78.949 In Sodium Chloride 0.9% 100 ml @ Per Protocol IV .Q0M [facility] Rx#:[id number] Mvi, Adult No.4 with Vit 90 K 10 ml Trace (Conc-1Ml/ Dose) 1 ml Calcium Gluconate 1,000 mg Potassium Acetate 20 meq In Amino Acid 5%-D15w 1, 000 ml @ 90 mls/hr IV .BY DURATION [facility] Rx#: [id number] Propofol 1,000 mg In 100 54.978 ml @ Titrate IV .Q0M [facility] Rx#:[id number] Sodium Acetate 100 meq In 280 Dextrose 5% in Water 1, 000 ml @ 70 mls/hr IV ONCE ONE Rx#:[id number] Sodium Chloride 0.9% 1, 30 000 ml @ 10 mls/hr IV . Q24H [facility] Rx#:[id number] levETIRAcetam IV 1,000 mg 100 In Saline 1 100ml.bag @ 400 mls/hr IVPB Q12HR [facility] Rx#:[id number] Output: Urine 150 362 77 Other: Voiding Method Indwelling Catheter Indwelling Catheter Indwelling Catheter ABP, PAP, CO, CI - Last Documented Arterial Blood Pressure 104/56 - Exam Patient unresponsive, intubated on a mechanical ventilator. Orogastric and orotracheal tube are both in place. The patient on and off is having some chronic jerks, probably once every few minutes. He'll be started on Diprivan. EEG is to follow. CAT scan of the brain is to follow.. Head exam was generally normal. There was no scleral icterus or corneal arcus. Mucous membranes were moist.There was no scleral icterus or corneal arcus. Mucous membranes were moist. Neck is supple and there is no JVDs no goiter or neck masses.. The patient also has an orogastric and NG tube in place.Lungs were diminished bilaterally and percussion, and with normal diaphragmatic excursion. No wheezes or rales were noted. Cardiac exam revealed the PMI to be normally situated and sized. The rhythm was regular and no extrasystoles were noted during several minutes of auscultation. The first and second heart sounds were normal and physiologic splitting of the second heart sound was noted. There were no murmurs, rubs, clicks, or gallops. Abdomen is soft. Bowel sounds are absent. There is a midabdominal large skin wound which is dry clean and intact and the patient has an underlying ascites with fluid wave. No direct tenderness. No rebound tenderness. No guarding. 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 Neurologically the patient is awake unresponsive an underlying seizure activity as suspected.. No significant scrotal edema. Patient has absent gag reflex people or recent reflexes are present patient is presently in status epilepticus - Labs CBC & Chem 7: 04/08/17 04:30 04/08/17 04:30 Labs: Abnormal Lab Results - Last 24 Hours (Table) 04/07/17 04/07/17 04/07/17 Range/Units 15:31 15:59 16:48 WBC (3.8-10.6) k/uL RBC (4.30-5.90) m/uL Hgb (13.0-17.5) gm/dL Hct (39.0-53.0) % MCHC (31.0-37.0) g/dL Plt Count (150-450) k/uL Neutrophils # (1.3-7.7) k/uL ABG pH 7.09 L* (7.35-7.45) ABG pCO2 47 H (35-45) mmHg ABG pO2 196 H (83-108) mmHg ABG HCO3 14 L (21-25) mmol/L ABG Total CO2 15 L (19-24) mmol/L ABG O2 Saturation 99.0 H (94-97) % Chloride (98-107) mmol/L Carbon Dioxide (22-30) mmol/L BUN (9-20) mg/dL Creatinine (0.66-1.25) mg/dL Glucose (74-99) mg/dL POC Glucose (mg/dL) 288 H 275 H (75-99) mg/dL Hemoglobin A1c (4.2-6.1) % Plasma Lactic Acid Mario (0.7-2.0) mmol/L Calcium (8.4-10.2) mg/dL Alkaline Phosphatase (38-126) U/L Total Protein (6.3-8.2) g/dL Albumin (3.5-5.0) g/dL 04/07/17 04/07/17 04/07/17 Range/Units 17:23 17:23 17:23 WBC 25.0 H* (3.8-10.6) k/uL RBC 2.78 L (4.30-5.90) m/uL Hgb 7.9 L (13.0-17.5) gm/dL Hct 25.7 L (39.0-53.0) % MCHC 30.9 L (31.0-37.0) g/dL Plt Count 783 H (150-450) k/uL Neutrophils # 21.7 H (1.3-7.7) k/uL ABG pH (7.35-7.45) ABG pCO2 (35-45) mmHg ABG pO2 (83-108) mmHg ABG HCO3 (21-25) mmol/L ABG Total CO2 (19-24) mmol/L ABG O2 Saturation (94-97) % Chloride 115 H (98-107) mmol/L Carbon Dioxide 14 L (22-30) mmol/L BUN 63 H (9-20) mg/dL Creatinine 2.85 H (0.66-1.25) mg/dL Glucose 262 H (74-99) mg/dL POC Glucose (mg/dL) (75-99) mg/dL Hemoglobin A1c (4.2-6.1) % Plasma Lactic Acid Mario 6.5 H* (0.7-2.0) mmol/L Calcium 7.5 L (8.4-10.2) mg/dL Alkaline Phosphatase 142 H (38-126) U/L Total Protein 6.1 L (6.3-8.2) g/dL Albumin 2.3 L (3.5-5.0) g/dL 04/07/17 04/07/17 04/07/17 Range/Units 17:49 19:41 20:50 WBC (3.8-10.6) k/uL RBC (4.30-5.90) m/uL Hgb (13.0-17.5) gm/dL Hct (39.0-53.0) % MCHC (31.0-37.0) g/dL Plt Count (150-450) k/uL Neutrophils # (1.3-7.7) k/uL ABG pH 7.24 L (7.35-7.45) ABG pCO2 32 L (35-45) mmHg ABG pO2 60 L (83-108) mmHg ABG HCO3 13 L (21-25) mmol/L ABG Total CO2 14 L (19-24) mmol/L ABG O2 Saturation 87.0 L (94-97) % Chloride (98-107) mmol/L Carbon Dioxide (22-30) mmol/L BUN (9-20) mg/dL Creatinine (0.66-1.25) mg/dL Glucose (74-99) mg/dL POC Glucose (mg/dL) 235 H 223 H (75-99) mg/dL Hemoglobin A1c (4.2-6.1) % Plasma Lactic Acid Mario (0.7-2.0) mmol/L Calcium (8.4-10.2) mg/dL Alkaline Phosphatase (38-126) U/L Total Protein (6.3-8.2) g/dL Albumin (3.5-5.0) g/dL 04/07/17 04/07/17 04/07/17 Range/Units 21:15 22:07 23:06 WBC (3.8-10.6) k/uL RBC (4.30-5.90) m/uL Hgb (13.0-17.5) gm/dL Hct (39.0-53.0) % MCHC (31.0-37.0) g/dL Plt Count (150-450) k/uL Neutrophils # (1.3-7.7) k/uL ABG pH (7.35-7.45) ABG pCO2 (35-45) mmHg ABG pO2 (83-108) mmHg ABG HCO3 (21-25) mmol/L ABG Total CO2 (19-24) mmol/L ABG O2 Saturation (94-97) % Chloride (98-107) mmol/L Carbon Dioxide (22-30) mmol/L BUN (9-20) mg/dL Creatinine (0.66-1.25) mg/dL Glucose (74-99) mg/dL POC Glucose (mg/dL) 142 H 110 H (75-99) mg/dL Hemoglobin A1c (4.2-6.1) % Plasma Lactic Acid Mario 3.9 H* (0.7-2.0) mmol/L Calcium (8.4-10.2) mg/dL Alkaline Phosphatase (38-126) U/L Total Protein (6.3-8.2) g/dL Albumin (3.5-5.0) g/dL 04/08/17 04/08/1717 Range/Units 02:07 03:41 04:25 WBC (3.8-10.6) k/uL RBC (4.30-5.90) m/uL Hgb (13.0-17.5) gm/dL Hct (39.0-53.0) % MCHC (31.0-37.0) g/dL Plt Count (150-450) k/uL Neutrophils # (1.3-7.7) k/uL ABG pH (7.35-7.45) ABG pCO2 25 L (35-45) mmHg ABG pO2 132 H (83-108) mmHg ABG HCO3 16 L (21-25) mmol/L ABG Total CO2 17 L (19-24) mmol/L ABG O2 Saturation 99.0 H (94-97) % Chloride (98-107) mmol/L Carbon Dioxide (22-30) mmol/L BUN (9-20) mg/dL Creatinine (0.66-1.25) mg/dL Glucose (74-99) mg/dL POC Glucose (mg/dL) 104 H 117 H (75-99) mg/dL Hemoglobin A1c (4.2-6.1) % Plasma Lactic Acid Mario (0.7-2.0) mmol/L Calcium (8.4-10.2) mg/dL Alkaline Phosphatase (38-126) U/L Total Protein (6.3-8.2) g/dL Albumin (3.5-5.0) g/dL 04/08/17 04/08/17 04/08/17 Range/Units 04:30 04:30 04:30 WBC 17.8 H (3.8-10.6) k/uL RBC 2.68 L (4.30-5.90) m/uL Hgb 7.5 L (13.0-17.5) gm/dL Hct 23.8 L (39.0-53.0) % MCHC (31.0-37.0) g/dL Plt Count 624 H (150-450) k/uL Neutrophils # 15.4 H (1.3-7.7) k/uL ABG pH (7.35-7.45) ABG pCO2 (35-45) mmHg ABG pO2 (83-108) mmHg ABG HCO3 (21-25) mmol/L ABG Total CO2 (19-24) mmol/L ABG O2 Saturation (94-97) % Chloride 119 H (98-107) mmol/L Carbon Dioxide 14 L (22-30) mmol/L BUN 67 H (9-20) mg/dL Creatinine 3.04 H (0.66-1.25) mg/dL Glucose 111 H (74-99) mg/dL POC Glucose (mg/dL) (75-99) mg/dL Hemoglobin A1c 7.9 H (4.2-6.1) % Plasma Lactic Acid Mario (0.7-2.0) mmol/L Calcium 7.4 L (8.4-10.2) mg/dL Alkaline Phosphatase (38-126) U/L Total Protein (6.3-8.2) g/dL Albumin (3.5-5.0) g/dL 04/08/17 04/08/17 Range/Units 08:21 11:52 WBC (3.8-10.6) k/uL RBC (4.30-5.90) m/uL Hgb (13.0-17.5) gm/dL Hct (39.0-53.0) % MCHC (31.0-37.0) g/dL Plt Count (150-450) k/uL Neutrophils # (1.3-7.7) k/uL ABG pH (7.35-7.45) ABG pCO2 (35-45) mmHg ABG pO2 (83-108) mmHg ABG HCO3 (21-25) mmol/L ABG Total CO2 (19-24) mmol/L ABG O2 Saturation (94-97) % Chloride (98-107) mmol/L Carbon Dioxide (22-30) mmol/L BUN (9-20) mg/dL Creatinine (0.66-1.25) mg/dL Glucose (74-99) mg/dL POC Glucose (mg/dL) 135 H 157 H (75-99) mg/dL Hemoglobin A1c (4.2-6.1) % Plasma Lactic Acid Mario (0.7-2.0) mmol/L Calcium (8.4-10.2) mg/dL Alkaline Phosphatase (38-126) U/L Total Protein (6.3-8.2) g/dL Albumin (3.5-5.0) g/dL Microbiology - Last 24 Hours (Table) 04/07/17 20:05 Gram Stain - Preliminary Sputum Sputum Culture - Preliminary 04/03/17 23:50 Blood Culture - Preliminary Blood No Growth after 96 hours 04/04/17 18:58 Blood Culture - Preliminary Blood No Growth after 72 hours 04/04/17 18:33 Blood Culture - Preliminary Blood No Growth after 72 hours Assessment and Plan Plan: #1 acute cardiopulmonary arrest with significant anoxic brain injury: Discussed with with the family members as mentioned above. Patient is on constant status of peptic is prepared for which patient is on IV. #2 status of left because: Secondary to severe anoxic brain injury. #3 perforated peptic ulcer: For which patient is on broad-spectrum antibiotics patient is status post laparotomy. #4 history of septic chart didn't this hospitalization secondary to perforated peptic ulcer and cholecystitis. #5 acute respiratory failure secondary to cardiology pulmonary arrest. #6 acute kidney injury: Probably secondary to acute purulent necrosis patient appears to have C Thania unable to stage at this time. 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
--- NOTE | 2017-04-08 14:30 | PCN ---
ARTERIAL LINE PLACEMENT Indication: Hemodynamic monitoring. A time-out was completed verifying correct patient, procedure, site, positioning , and implant(s) or special equipment if applicable. Allens test was performed to ensure adequate perfusion. The patients right groin was prepped and draped in sterile fashion. 1% Lidocaine was used to anesthetize the area. An 18G Arrow arterial line was introduced into the femoral artery. The catheter was threaded over the guide wire and the needle was removed with appropriate pulsatile blood return. Blood loss was minimal. The catheter was then sutured in place to the skin and a sterile dressing applied. Perfusion to the extremity distal to the point of catheter insertion was checked and found to be adequate. PREOPERATIVE DIAGNOSIS: Cardiac arrest/ shock. POSTOPERATIVE DIAGNOSIS: Cardiac arrest/shock. The patient tolerated the procedure well and there were no complications. This procedure was done without any complications. No bedside complications or bleeding. CHANTELLE
[2017-04-08 16:14] LABS: Glucose,Whole Blood 238 mg/dL (75-99)
[2017-04-08 16:40] LABS: Potassium 4.4 mmol/L (3.5-5.1)
--- NOTE | 2017-04-08 18:02 | P.CRDCN ---
History of Present Illness Chief complaint: vf arrest History of present illness: 66-year-old gentleman who is in the hospital for several weeks now who came in with an intra-abdominal pathology. Yesterday he had a cardiac arrest and required defibrillation. He was not on telemetry at that time so I don't have any telemetry strips recording the onset of the arrhythmia. He was on IV Diflucan until the , was also on Zofran and other medications that could increase the QT interval At this time his twelve-lead ECG shows sinus tachycardia but does not show any propagation of the QT interval Medication list was reviewed and as documented in the chart Labs are reviewed white count is elevated creatinine is 3.0 He is intubated at this time. I cannot get a history from him he may be seizing and is undergoing an EEG shortly From a cardiac standpoint 2-D echo and Doppler study Avoidance of drugs that could prolong QT interval Keep potassium above 4.0 and magnesium about 2.0 His call as needed Past Medical History Past Medical History: Cancer, Diabetes Mellitus, Eye Disorder, GERD/Reflux Additional Past Medical History / Comment(s): Congestion heart failure suspected , diabetes mellitus, severe peripheral vascular disease with gangrenous right lower extremity status post below-knee (May 2016) amputation on the right and left toe amputation involving the third fourth and fifth toe (2011), obesity, diabetic peripheral neuropathy, diabetic retinopathy with history of a Detached retina, diabetic nephropathy with stage II chronic kidney disease, diabetic peripheral neuropathy, GERD reflux, chronic anemia History of Any Multi-Drug Resistant Organisms: MRSA, VRE Date of last positivie culture/infection: 03/18/17 MRSA; 07/22/16 VRE & MRSA MDRO Source:: Sputm-MRSA; Right Leg VRE & MRSA Past Surgical History: Cholecystectomy Additional Past Surgical History / Comment(s): Left toe amputations 3, 4, 5, retinal surgery. Right BKA; Skin cancer removed: back of neck, upper back, Past Anesthesia/Blood Transfusion Reactions: No Reported Reaction Past Psychological History: No Psychological Hx Reported Smoking Status: Never smoker Past Alcohol Use History: None Reported Additional Past Alcohol Use History / Comment(s): . Past Drug Use History: None Reported - Past Family History Mother Family Medical History: Diabetes Mellitus, Renal Disease Father Family Medical History: Congestive Heart Failure (CHF) Brother(s) Family Medical History: No Reported History Sister(s) Family Medical History: No Reported History Medications and Allergies Home Medications Medication Instructions Recorded Confirmed Type Ferrous Sulfate [Iron (65 MG 325 mg PO QAM 05/13/16 03/16/17 History Elemental)] Lactobacillus Acidophilus 1 tab PO BID 05/19/16 03/16/17 History [Acidophilus] Omeprazole 20 mg PO DAILY 05/29/16 03/17/17 History Furosemide [Lasix] 20 mg PO DAILY@1200 07/29/16 03/17/17 History Furosemide [Lasix] 40 mg PO DAILY@0600 07/29/16 03/17/17 History Carvedilol [Coreg] 6.25 mg PO BID@0900,1700 03/16/17 03/16/17 History Eviredge 150 mg PO HS 03/16/17 03/16/17 History HYDROcodone/APAP 5-325MG [[place] 1 tab PO Q6H PRN 03/16/17 03/16/17 History 5-325] Insulin Aspart [NovoLOG Flexpen] 6 units SQ AC-TID 03/16/17 03/16/17 History Insulin Glargine,Hum.rec.anlog 8 unit SQ 03/16/17 03/16/17 History [Basaglar Kwikpen U-100] hydrALAZINE HCL [Apresoline] 25 mg PO TID@0900,1300,1700 03/16/17 03/16/17 History Allergies Allergy/AdvReac Type Severity Reaction Status Date / Time No Known Allergies Allergy Verified 03/16/17 17:03 Physical Exam Vitals: Vital Signs Temp Pulse Resp BP Pulse Ox 04/08/17 17:00 109 H 30 H 99 04/08/17 16:00 99.9 F H 104 H 30 H 100 04/08/17 15:38 107 H 04/08/17 15:30 108 H 04/08/17 15:00 107 H 30 H 99 04/08/17 14:00 108 H 30 H 99 04/08/17 13:00 104 H 13 99 04/08/17 12:00 99.1 F 109 H 30 H 98 04/08/17 11:50 111 H 04/08/17 11:41 109 H 04/08/17 11:00 109 H 10 L 99 04/08/17 10:00 112 H 32 H 98 04/08/17 09:00 113 H 32 H 99 04/08/17 08:00 99.1 F 106 H 31 H 99 04/08/17 07:55 102 H 04/08/17 07:30 105 H 04/08/17 07:00 98.9 F 103 H 30 H 97 04/08/17 06:00 107 H 17 98 04/08/17 05:00 99 30 H 99 04/08/17 04:00 98.2 F 103 H 31 H 100 04/08/17 03:00 96 30 H 100 04/08/17 02:00 101 H 30 H 100 04/08/17 01:00 104 H 30 H 99 04/08/17 00:00 98.2 F 110 H 30 H 98 04/07/17 23:23 111 H 30 H 97 04/07/17 23:00 109 H 30 H 96 04/07/17 22:00 109 H 30 H 97 04/07/17 21:00 110 H 23 113/63 99 04/07/17 20:34 104 H 04/07/17 20:03 104 H 04/07/17 20:00 100.4 F H 105 H 24 113/63 99 04/07/17 19:03 105 H 24 165/75 96 Intake and Output 04/08/17 04/08/17 04/08/17 06:59 14:59 22:59 Intake Total 400 1294.978 710 Output Total 232 687 220 Balance 168 607.978 490 Intake: IV 400 400 100 0.9 400 50 Ceftaroline Fosamil 300 250 mg In Sodium Chloride 0.9 % 250 ml @ 250 mls/hr IVPB Q12HR [facility] Rx#: [id number] metroNIDAZOLE-NS PMX 500 100 100 mg In Saline 1 100ml.bag @ 100 mls/hr IVPB Q8HR [facility] Rx#:[id number] Intake, IV Titration 894.978 610 Amount Magnesium Sulfate-D5w Pmx 100 1 gm In Dextrose/Water 1 100ml.bag @ 100 mls/hr IVPB Q1H [facility] Rx#: [id number] Mvi, Adult No.4 with Vit 270 270 K 10 ml Trace (Conc-1Ml/ Dose) 1 ml Calcium Gluconate 1,000 mg Potassium Acetate 20 meq In Amino Acid 5%-D15w 1, 000 ml @ 90 mls/hr IV .BY DURATION [facility] Rx#: [id number] Propofol 1,000 mg In 100 54.978 ml @ Titrate IV .Q0M [facility] Rx#:[id number] Sodium Acetate 100 meq In 420 210 Dextrose 5% in Water 1, 000 ml @ 70 mls/hr IV ONCE ONE Rx#:[id number] Sodium Chloride 0.9% 1, 50 30 000 ml @ 10 mls/hr IV . Q24H [facility] Rx#:[id number] levETIRAcetam IV 1,000 mg 100 In Saline 1 100ml.bag @ 400 mls/hr IVPB Q12HR [facility] Rx#:[id number] Output: Gastric Drainage 200 Urine 232 87 20 Stool 600 Other: Voiding Method Indwelling Catheter Indwelling Catheter Indwelling Catheter Weight 101.1 kg 101.1 kg Patient Weight 04/09/17 06:59 Weight 101.1 kg ABP, PAP, CO, CI - Last 8 Hours Arterial Blood Pressure 122/63 Arterial Blood Pressure 105/53 Arterial Blood Pressure 99/45 Arterial Blood Pressure 105/53 Arterial Blood Pressure 95/40 Arterial Blood Pressure 104/56 Arterial Blood Pressure 103/54 Results 04/08/17 04:30 04/08/17 16:20 Cardiac Enzymes 04/07/17 Range/Units 17:23 Troponin I 0.028 (0.000-0.034) ng/mL CBC 04/08/17 Range/Units 04:30 WBC 17.8 H (3.8-10.6) k/uL RBC 2.68 L (4.30-5.90) m/uL Hgb 7.5 L (13.0-17.5) gm/dL Hct 23.8 L (39.0-53.0) % Plt Count 624 H (150-450) k/uL Comprehensive Metabolic Panel 04/08/17 04/08/17 Range/Units 04:30 16:20 Sodium 144 (137-145) mmol/L Potassium 4.1 4.4 (3.5-5.1) mmol/L Chloride 119 H (98-107) mmol/L Carbon Dioxide 14 L (22-30) mmol/L BUN 67 H (9-20) mg/dL Creatinine 3.04 H (0.66-1.25) mg/dL Glucose 111 H (74-99) mg/dL Calcium 7.4 L (8.4-10.2) mg/dL Current Medications Generic Name Dose Route Start Last Admin Trade Name Freq PRN Reason Stop Dose Admin Acetaminophen 650 mg 04/03/17 23:17 04/03/17 23:43 Tylenol Tab PO 650 mg Q4HR PRN Administration Fever Albuterol/Ipratropium 3 ml 03/16/17 23:54 Duoneb 0.5 Mg-3 Mg/3 Ml Soln INHALATION RT-Q2H PRN Shortness Of Breath Or Wheezing Albuterol/Ipratropium 3 ml 03/24/17 08:00 04/08/17 15:23 Duoneb 0.5 Mg-3 Mg/3 Ml Soln INHALATION 3 ml RT-QID [facility] Administration Chlorhexidine Gluconate 15 ml 04/08/17 09:00 04/08/17 08:22 Peridex MUCOUS MEM 15 ml BID [facility] Administration Heparin Sodium (Porcine) 5,000 unit 03/17/17 00:00 04/08/17 16:09 Heparin SQ 5,000 unit Q8HR [facility] Administration Hydromorphone HCl 0.5 mg 04/07/17 11:21 Dilaudid IVP Q4HR PRN Severe Pain Ceftaroline Fosamil 300 mg/ 250 mls @ 250 mls/hr 04/04/17 21:00 04/08/17 09: 10 Sodium Chloride IVPB 250 mls/hr Q12HR [facility] Administration Metronidazole 500 mg/ IV 100 mls @ 100 mls/hr 04/04/17 18:00 04/08/17 16:09 Solution IVPB 100 mls/hr Q8HR [facility] Administration Sodium Chloride 1,000 mls @ 10 mls/hr 04/06/17 18:00 04/08/17 16:17 Saline 0.9% IV Not Given .Q24H [facility] Propofol 1,000 mg in 100 mls @ 0 mls/hr 04/07/17 22:45 04/08/17 08:29 Diprivan IV 0 mcg/kg/min .Q0M [facility] 0 mls/hr Protocol Titration Titrate Sodium Acetate 100 meq/ 1,050 mls @ 70 mls/hr 04/08/17 08:30 04/08/17 09:00 Dextrose/Water IV 04/08/17 23:29 70 mls/hr ONCE ONE Administration Parenteral Vitamin Supplement 1,031 mls @ 90 mls/hr 04/08/17 11:30 04/08/17 11:53 10 ml/ Chromium/Copper/ IV 90 mls/hr Manganese/Seleni/Zn 1 ml/ .BY DURATION [facility] Administration Calcium Gluconate 1,000 mg/ Potassium Acetate 20 meq/ Amino Acids/Dextrose Amino Acids/Dextrose 1,000 mls @ 90 mls/hr 04/08/17 11:30 Clinimix 5%-D15% Solution IV .BY DURATION [facility] Fat Emulsion Intravenous 250 250 mls @ 21 mls/hr 04/09/17 16:00 ml/ IV Solution IV [id number] [facility] Levetiracetam 1,000 mg/ IV 100 mls @ 400 mls/hr 04/08/17 11:45 04/08/17 11:53 Solution IVPB 400 mls/hr Q12HR [facility] Administration Magnesium Sulfate/Dextrose 1 100 mls @ 100 mls/hr 04/08/17 17:00 04/08/17 17: 27 gm/ IV Solution IVPB 04/08/17 18:59 100 mls/hr Q1H [facility] Administration Valproic Acid 500 mg/ Sodium 55 mls @ 50 mls/hr 04/08/17 18:00 Chloride IVPB Q8H [facility] Insulin Human Lispro 0 unit 04/08/17 12:00 04/08/17 16:17 Humalog SQ 3 unit Q4H [facility] Administration Protocol Miscellaneous Information 1 each 03/17/17 00:40 Magnesium Per Protocol MISCELLANE DAILY PRN Per Protocol Protocol Miscellaneous Information 1 each 03/17/17 00:40 Phosphorus Per Protocol MISCELLANE DAILY PRN Per Protocol Protocol Miscellaneous Information 1 each 03/25/17 07:05 Potassium Per Protocol MISCELLANE DAILY PRN Per Protocol Protocol Naloxone HCl 0.2 mg 03/16/17 22:03 Narcan IV Q2M PRN Opioid Reversal Pantoprazole Sodium 40 mg 03/17/17 09:00 04/08/17 08:22 Protonix IV 40 mg BID [facility] Administration Sodium Bicarbonate 1,300 mg 04/01/17 21:00 04/08/17 09:10 Sodium Bicarbonate Tab PO Not Given BID [facility] Sodium Chloride 20 ml 03/26/17 11:54 Saline Flush IV Q4HR PRN PICC Line Sodium Chloride 10 ml 04/02/17 09:00 04/02/17 07:54 Saline Flush IV 10 ml WEEKLY [facility] Administration Sodium Chloride 10 ml 03/26/17 11:54 Saline Flush IV Q4HR PRN PICC Line Intake and Output 04/08/17 04/08/17 04/08/17 06:59 14:59 22:59 Intake Total 400 1294.978 710 Output Total 232 687 220 Balance 168 607.978 490 Intake: IV 400 400 100 0.9 400 50 Ceftaroline Fosamil 300 250 mg In Sodium Chloride 0.9 % 250 ml @ 250 mls/hr IVPB Q12HR [facility] Rx#: [id number] metroNIDAZOLE-NS PMX 500 100 100 mg In Saline 1 100ml.bag @ 100 mls/hr IVPB Q8HR [facility] Rx#:[id number] Intake, IV Titration 894.978 610 Amount Magnesium Sulfate-D5w Pmx 100 1 gm In Dextrose/Water 1 100ml.bag @ 100 mls/hr IVPB Q1H [facility] Rx#: [id number] Mvi, Adult No.4 with Vit 270 270 K 10 ml Trace (Conc-1Ml/ Dose) 1 ml Calcium Gluconate 1,000 mg Potassium Acetate 20 meq In Amino Acid 5%-D15w 1, 000 ml @ 90 mls/hr IV .BY DURATION [facility] Rx#: [id number] Propofol 1,000 mg In 100 54.978 ml @ Titrate IV .Q0M [facility] Rx#:[id number] Sodium Acetate 100 meq In 420 210 Dextrose 5% in Water 1, 000 ml @ 70 mls/hr IV ONCE ONE Rx#:[id number] Sodium Chloride 0.9% 1, 50 30 000 ml @ 10 mls/hr IV . Q24H [facility] Rx#:[id number] levETIRAcetam IV 1,000 mg 100 In Saline 1 100ml.bag @ 400 mls/hr IVPB Q12HR [facility] Rx#:[id number] Output: Gastric Drainage 200 Urine 232 87 20 Stool 600 Other: Voiding Method Indwelling Catheter Indwelling Catheter Indwelling Catheter Weight 101.1 kg 101.1 kg Patient Weight 04/09/17 06:59 Weight 101.1 kg 04/08/17 04:30 04/08/17 16:20
[2017-04-08] MEDS: VALPROATE SODIUM 500 MG in SODIUM CHLORIDE 0.9% 50 ML IVPB SCH (18:27)
[2017-04-08 20:00] LABS: Glucose,Whole Blood 220 mg/dL (75-99)
[2017-04-09 00:02] LABS: Glucose,Whole Blood 243 mg/dL (75-99)
[2017-04-09] MEDS: metroNIDAZOLE-NS PMX 500 MG in SALINE 1 100ML.BAG IVPB SCH ×2 (00:44→07:54)
[2017-04-09] MEDS: HEPARIN SODIUM,PORCINE 5,000 UNIT/ML 1 ML VIAL SQ SCH ×2 (00:44→07:55)
[2017-04-09] MEDS: 1: MVI, ADULT NO.4 WITH VIT K 10 ML, TRACE (CONC-1ML/DOSE) 1 ML, CALCIUM GLUCONATE 1,000 IV SCH ×5 (00:44)
[2017-04-09] MEDS: INSULIN LISPRO (humaLOG) 300 UNIT/3 ML VIAL SQ SCH ×3 (00:44→07:36)
[2017-04-09] MEDS: VALPROATE SODIUM 500 MG in SODIUM CHLORIDE 0.9% 50 ML IVPB SCH ×2 (02:11→09:43)
--- NOTE | 2017-04-09 03:49 | P.CNNES ---
History of Present Illness Consult date: 04/08/17 Requesting physician: Cassius Lopez Reason for Consult: Seizures, hypoxic encephalopathy secondary to cardiac arrest Chief complaint: Seizure History of Present Illness: CHARTING DELAYED A RESULT OF OFFSITE ACCESS TO [employer] OUT OF SERVICE THE EVENING OF 04/08/17 Patient is a 66-year-old male who is being consult by neurology for new onset seizure status post cardiac arrest. Patient was resuscitated twice. Currently patient is intubated, in the ICU and having ongoing seizure activity. Patient does have pupillary reflex but absent gag reflex. Patient has experienced a significant anoxic brain injury as evidenced by status epilepticus. Patient was previously started on Keppra 1000 mg every 12 hours with no changes in the patient's seizure status. At contact, the patient is supine, in bed on the ventilator. Review of Systems All systems not noted in HPI or negative Past Medical History Past Medical History: Cancer, Diabetes Mellitus, Eye Disorder, GERD/Reflux Additional Past Medical History / Comment(s): Congestion heart failure suspected , diabetes mellitus, severe peripheral vascular disease with gangrenous right lower extremity status post below-knee (May 2016) amputation on the right and left toe amputation involving the third fourth and fifth toe (2011), obesity, diabetic peripheral neuropathy, diabetic retinopathy with history of a Detached retina, diabetic nephropathy with stage II chronic kidney disease, diabetic peripheral neuropathy, GERD reflux, chronic anemia History of Any Multi-Drug Resistant Organisms: MRSA, VRE Date of last positivie culture/infection: 03/18/17 MRSA; 07/22/16 VRE & MRSA MDRO Source:: Sputm-MRSA; Right Leg VRE & MRSA Past Surgical History: Cholecystectomy Additional Past Surgical History / Comment(s): Left toe amputations 3, 4, 5, retinal surgery. Right BKA; Skin cancer removed: back of neck, upper back, Past Anesthesia/Blood Transfusion Reactions: No Reported Reaction Past Psychological History: No Psychological Hx Reported Smoking Status: Never smoker Past Alcohol Use History: None Reported Additional Past Alcohol Use History / Comment(s): . Past Drug Use History: None Reported - Past Family History Mother Family Medical History: Diabetes Mellitus, Renal Disease Father Family Medical History: Congestive Heart Failure (CHF) Brother(s) Family Medical History: No Reported History Sister(s) Family Medical History: No Reported History Medications and Allergies Home Medications Medication Instructions Recorded Confirmed Type Ferrous Sulfate [Iron (65 MG 325 mg PO QAM 05/13/16 03/16/17 History Elemental)] Lactobacillus Acidophilus 1 tab PO BID 05/19/16 03/16/17 History [Acidophilus] Omeprazole 20 mg PO DAILY 05/29/16 03/17/17 History Furosemide [Lasix] 20 mg PO DAILY@1200 07/29/16 03/17/17 History Furosemide [Lasix] 40 mg PO DAILY@0600 07/29/16 03/17/17 History Carvedilol [Coreg] 6.25 mg PO BID@0900,1700 03/16/17 03/16/17 History Eviredge 150 mg PO HS 03/16/17 03/16/17 History HYDROcodone/APAP 5-325MG [[place] 1 tab PO Q6H PRN 03/16/17 03/16/17 History 5-325] Insulin Aspart [NovoLOG Flexpen] 6 units SQ AC-TID 03/16/17 03/16/17 History Insulin Glargine,Hum.rec.anlog 8 unit SQ 03/16/17 03/16/17 History [Basaglar Kwikpen U-100] hydrALAZINE HCL [Apresoline] 25 mg PO TID@0900,1300,1700 03/16/17 03/16/17 History Allergies Allergy/AdvReac Type Severity Reaction Status Date / Time No Known Allergies Allergy Verified 03/16/17 17:03 Physical Examination - Vital Signs Vital Signs: Vital Signs Temp Pulse Resp Pulse Ox 04/09/17 02:00 103 H 30 H 99 04/09/17 01:00 97 30 H 98 04/09/17 00:00 98 F 102 H 30 H 98 04/08/17 23:00 104 H 30 H 98 04/08/17 22:00 103 H 30 H 98 04/08/17 21:00 105 H 30 H 98 04/08/17 20:00 98 F 107 H 30 H 100 04/08/17 19:53 103 H 04/08/17 19:00 102 H 30 H 99 04/08/17 18:00 107 H 30 H 99 04/08/17 17:00 109 H 30 H 99 04/08/17 16:00 99.9 F H 104 H 30 H 100 04/08/17 15:38 107 H 04/08/17 15:30 108 H 04/08/17 15:00 107 H 30 H 99 04/08/17 14:00 108 H 30 H 99 04/08/17 13:00 104 H 13 99 04/08/17 12:00 99.1 F 109 H 30 H 98 04/08/17 11:50 111 H 04/08/17 11:41 109 H 04/08/17 11:00 109 H 10 L 99 04/08/17 10:00 112 H 32 H 98 04/08/17 09:00 113 H 32 H 99 04/08/17 08:00 99.1 F 106 H 31 H 99 04/08/17 07:55 102 H 04/08/17 07:30 105 H 04/08/17 07:00 98.9 F 103 H 30 H 97 04/08/17 06:00 107 H 17 98 04/08/17 05:00 99 30 H 99 04/08/17 04:00 98.2 F 103 H 31 H 100 Intake and Output 04/08/17 04/08/17 04/09/17 14:59 22:59 06:59 Intake Total 9906.066 8314 660 Output Total 687 220 15 Balance 230.495 7996 645 Intake: IV 400 970 660 0.9 50 Ceftaroline Fosamil 300 250 250 mg In Sodium Chloride 0.9 % 250 ml @ 250 mls/hr IVPB Q12HR [facility] Rx#: [id number] Dextrose 5% in Water 1, 150 200 000 ml @ 50 mls/hr IV . Q23H [facility] with Sod Bicarb Syr 8.4% (1 Meq/ml) 150 ml Rx#:[id number] Magnesium Sulfate-D5w Pmx 100 1 gm In Dextrose/Water 1 100ml.bag @ 100 mls/hr IVPB Q1H [facility] Rx#: [id number] Mvi, Adult No.4 with Vit 270 360 K 10 ml Trace (Conc-1Ml/ Dose) 1 ml Parenteral Electrolytes 20 ml Potassium Acetate 20 meq In Amino Acid 5%-D15w 1, 000 ml @ 100 mls/hr IV . BY DURATION [facility] Rx#: [id number] levETIRAcetam IV 1,000 mg 100 In Saline 1 100ml.bag @ 400 mls/hr IVPB Q12HR [facility] Rx#:[id number] metroNIDAZOLE-NS PMX 500 100 100 100 mg In Saline 1 100ml.bag @ 100 mls/hr IVPB Q8HR [facility] Rx#:[id number] Intake, IV Titration 799.185 7786 Amount Magnesium Sulfate-D5w Pmx 200 1 gm In Dextrose/Water 1 100ml.bag @ 100 mls/hr IVPB Q1H [facility] Rx#: [id number] Mvi, Adult No.4 with Vit 270 450 K 10 ml Trace (Conc-1Ml/ Dose) 1 ml Calcium Gluconate 1,000 mg Potassium Acetate 20 meq In Amino Acid 5%-D15w 1, 000 ml @ 90 mls/hr IV .BY DURATION [facility] Rx#: [id number] Propofol 1,000 mg In 100 54.978 ml @ Titrate IV .Q0M [facility] Rx#:[id number] Sodium Acetate 100 meq In 420 350 Dextrose 5% in Water 1, 000 ml @ 70 mls/hr IV ONCE ONE Rx#:[id number] Sodium Chloride 0.9% 1, 50 50 000 ml @ 10 mls/hr IV . Q24H [facility] Rx#:[id number] Valproate Sodium 500 mg 50 In Sodium Chloride 0.9% 50 ml @ 50 mls/hr IVPB Q8H [facility] Rx#:[id number] levETIRAcetam IV 1,000 mg 100 In Saline 1 100ml.bag @ 400 mls/hr IVPB Q12HR [facility] Rx#:[id number] Output: Gastric Drainage 200 Urine 87 20 15 Stool 600 Other: Voiding Method Indwelling Catheter Indwelling Catheter Weight 101.1 kg Patient Weight 04/09/17 06:59 Weight 101.1 kg ABP, PAP, CO, CI - Last 8 Hours Arterial Blood Pressure 114/52 Arterial Blood Pressure 126/62 Arterial Blood Pressure 124/57 Arterial Blood Pressure 123/51 Arterial Blood Pressure 114/50 Arterial Blood Pressure 118/51 Arterial Blood Pressure 106/56 Patient is unresponsive, intubated and on mechanical ventilator in the ICU. GASTRIC and tracheal tubes present. Patient does have intermittent "jerks" that are recurrent every few minutes. Patient is on Diprovan. Updated EEG will be requested for 04/09/2017. Updated computed tomography scan of the brain will also be requested for the morning of 04/09/2017. Eye exam normal. No scleral icterus or corneal arcus. His membranes moist. No JVD, goiter or neck masses. Patient also has orogastric an NG tube in place. Cardiac status on telemetry. Regular rhythm. Abdomen soft, nontender, no guarding. Below-the -knee amputation on the right, left lower extremity has only one toe. Neurologically, the patient only response to pain in the right thumb and left inner thigh. Patient will intermittently open eyes but does not appear to be purposeful. Diminished pulses distally in the left lower extremity. Gag reflex is absent. Patient is currently status epilepticus. Results CT brain without contrast 04/08/2017: No acute intracranial abnormality. Nonspecific high density material in the left maxillary sinus can be seen in the setting of fungal sinusitis. EEG #1: Taken ending results CT brain without contrast 04/09/2017: Scheduled, pending EEG #2: Scheduled, pending - Laboratory Findings CBC and BMP: 04/08/17 04:30 04/08/17 16:20 Abnormal Lab Findings: Abnormal Labs 03/16/17 03/16/17 03/16/17 16:19 16:30 16:30 WBC RBC Hgb Hct MCHC RDW Plt Count Neutrophils # Lymphocytes # 0.6 L ABG pH ABG pCO2 ABG pO2 ABG HCO3 ABG Total CO2 ABG O2 Saturation ABG Hematocrit ABG Lactic Acid VBG pH VBG pCO2 VBG HCO3 Sodium Potassium Chloride Carbon Dioxide BUN Creatinine Glucose POC Glucose (mg/dL) 397 H Hemoglobin A1c Plasma Lactic Acid Mario Calcium Phosphorus Magnesium Total Bilirubin AST Alkaline Phosphatase Total Creatine Kinase 216 H CK-MB (CK-2) 2.9 H* Troponin I 0.590 H* Total Protein Albumin Triglycerides Urine Protein Urine Glucose (UA) Urine Blood Ur Leukocyte Esterase Urine RBC Urine WBC Amorphous Sediment Urine Bacteria Hyaline Casts Urine Mucus Crossmatch 03/16/17 03/16/17 03/16/17 16:30 16:30 16:30 WBC RBC Hgb Hct MCHC RDW Plt Count Neutrophils # Lymphocytes # ABG pH ABG pCO2 ABG pO2 ABG HCO3 ABG Total CO2 ABG O2 Saturation ABG Hematocrit ABG Lactic Acid VBG pH 7.25 L VBG pCO2 29 L VBG HCO3 12 L Sodium 132 L Potassium 5.4 H Chloride Carbon Dioxide 9 L* BUN 108 H* Creatinine 5.90 H* Glucose 496 H* POC Glucose (mg/dL) Hemoglobin A1c Plasma Lactic Acid Mario 5.4 H* Calcium Phosphorus Magnesium Total Bilirubin AST Alkaline Phosphatase Total Creatine Kinase CK-MB (CK-2) Troponin I Total Protein 5.5 L Albumin 2.9 L Triglycerides Urine Protein Urine Glucose (UA) Urine Blood Ur Leukocyte Esterase Urine RBC Urine WBC Amorphous Sediment Urine Bacteria Hyaline Casts Urine Mucus Crossmatch 03/16/17 03/16/17 03/16/17 19:00 21:12 22:42 WBC RBC Hgb Hct MCHC RDW Plt Count Neutrophils # Lymphocytes # ABG pH 7.19 L* ABG pCO2 ABG pO2 355 H ABG HCO3 13 L ABG Total CO2 ABG O2 Saturation 99.4 H ABG Hematocrit 29 L ABG Lactic Acid VBG pH VBG pCO2 VBG HCO3 Sodium Potassium Chloride Carbon Dioxide BUN Creatinine Glucose POC Glucose (mg/dL) Hemoglobin A1c Plasma Lactic Acid Mario 2.8 H* Calcium Phosphorus Magnesium Total Bilirubin AST Alkaline Phosphatase Total Creatine Kinase CK-MB (CK-2) Troponin I Total Protein Albumin Triglycerides Urine Protein 1+ H Urine Glucose (UA) 1+ H Urine Blood Trace H Ur Leukocyte Esterase Urine RBC 15 H Urine WBC Amorphous Sediment Occasional H Urine Bacteria Hyaline Casts 110 H Urine Mucus Crossmatch 03/16/17 03/16/17 03/16/17 22:42 22:44 22:50 WBC RBC 4.08 L Hgb 11.9 L Hct 38.0 L MCHC RDW Plt Count Neutrophils # Lymphocytes # ABG pH 7.14 L* ABG pCO2 ABG pO2 332 H ABG HCO3 14 L ABG Total CO2 15 L ABG O2 Saturation 100.0 H ABG Hematocrit ABG Lactic Acid 2.8 H* VBG pH VBG pCO2 VBG HCO3 Sodium Potassium Chloride Carbon Dioxide BUN Creatinine Glucose POC Glucose (mg/dL) Hemoglobin A1c Plasma Lactic Acid Mario Calcium Phosphorus Magnesium Total Bilirubin AST Alkaline Phosphatase Total Creatine Kinase CK-MB (CK-2) Troponin I Total Protein Albumin Triglycerides Urine Protein Urine Glucose (UA) Urine Blood Ur Leukocyte Esterase Urine RBC Urine WBC Amorphous Sediment Urine Bacteria Hyaline Casts Urine Mucus Crossmatch 03/16/17 03/16/17 03/17/17 22:50 23:03 01:47 WBC RBC Hgb Hct MCHC RDW Plt Count Neutrophils # Lymphocytes # ABG pH ABG pCO2 ABG pO2 ABG HCO3 ABG Total CO2 ABG O2 Saturation ABG Hematocrit ABG Lactic Acid VBG pH VBG pCO2 VBG HCO3 Sodium Potassium Chloride 109 H Carbon Dioxide 15 L BUN 95 H* Creatinine 4.90 H Glucose 309 H POC Glucose (mg/dL) 283 H 274 H Hemoglobin A1c Plasma Lactic Acid Mario Calcium 7.7 L Phosphorus 4.9 H Magnesium Total Bilirubin AST 66 H Alkaline Phosphatase Total Creatine Kinase CK-MB (CK-2) Troponin I Total Protein 4.1 L Albumin 2.0 L Triglycerides Urine Protein Urine Glucose (UA) Urine Blood Ur Leukocyte Esterase Urine RBC Urine WBC Amorphous Sediment Urine Bacteria Hyaline Casts Urine Mucus Crossmatch 03/17/17 03/17/17 03/17/17 04:14 04:20 04:20 WBC RBC 4.03 L Hgb 11.7 L Hct 37.0 L MCHC RDW Plt Count Neutrophils # Lymphocytes # ABG pH ABG pCO2 ABG pO2 ABG HCO3 ABG Total CO2 ABG O2 Saturation ABG Hematocrit ABG Lactic Acid VBG pH VBG pCO2 VBG HCO3 Sodium 135 L Potassium Chloride 108 H Carbon Dioxide 12 L BUN 100 H* Creatinine 4.90 H Glucose 265 H POC Glucose (mg/dL) 266 H Hemoglobin A1c Plasma Lactic Acid Mario Calcium 7.6 L Phosphorus Magnesium Total Bilirubin AST 69 H Alkaline Phosphatase 22 L Total Creatine Kinase CK-MB (CK-2) Troponin I Total Protein 4.1 L Albumin 1.9 L Triglycerides Urine Protein Urine Glucose (UA) Urine Blood Ur Leukocyte Esterase Urine RBC Urine WBC Amorphous Sediment Urine Bacteria Hyaline Casts Urine Mucus Crossmatch 03/17/17 03/17/17 03/17/17 04:20 04:20 04:39 WBC RBC Hgb Hct MCHC RDW Plt Count Neutrophils # Lymphocytes # ABG pH 7.31 L ABG pCO2 27 L ABG pO2 198 H ABG HCO3 13 L ABG Total CO2 14 L ABG O2 Saturation 100.0 H ABG Hematocrit ABG Lactic Acid 3.0 H* VBG pH VBG pCO2 VBG HCO3 Sodium Potassium Chloride Carbon Dioxide BUN Creatinine Glucose POC Glucose (mg/dL) Hemoglobin A1c 7.7 H Plasma Lactic Acid Mario Calcium Phosphorus Magnesium Total Bilirubin AST Alkaline Phosphatase Total Creatine Kinase CK-MB (CK-2) Troponin I Total Protein Albumin Triglycerides Urine Protein Urine Glucose (UA) Urine Blood Ur Leukocyte Esterase Urine RBC Urine WBC Amorphous Sediment Urine Bacteria Hyaline Casts Urine Mucus Crossmatch 03/17/17 03/17/17 03/17/17 05:10 05:16 06:08 WBC RBC Hgb Hct MCHC RDW Plt Count Neutrophils # Lymphocytes # ABG pH ABG pCO2 ABG pO2 ABG HCO3 ABG Total CO2 ABG O2 Saturation ABG Hematocrit ABG Lactic Acid 2.7 H* VBG pH VBG pCO2 VBG HCO3 Sodium Potassium Chloride Carbon Dioxide BUN Creatinine Glucose POC Glucose (mg/dL) 235 H 217 H Hemoglobin A1c Plasma Lactic Acid Mario Calcium Phosphorus Magnesium Total Bilirubin AST Alkaline Phosphatase Total Creatine Kinase CK-MB (CK-2) Troponin I Total Protein Albumin Triglycerides Urine Protein Urine Glucose (UA) Urine Blood Ur Leukocyte Esterase Urine RBC Urine WBC Amorphous Sediment Urine Bacteria Hyaline Casts Urine Mucus Crossmatch 03/17/17 03/17/17 03/17/17 07:04 07:58 09:05 WBC RBC Hgb Hct MCHC RDW Plt Count Neutrophils # Lymphocytes # ABG pH ABG pCO2 ABG pO2 ABG HCO3 ABG Total CO2 ABG O2 Saturation ABG Hematocrit ABG Lactic Acid VBG pH VBG pCO2 VBG HCO3 Sodium Potassium Chloride Carbon Dioxide BUN Creatinine Glucose POC Glucose (mg/dL) 169 H 152 H 147 H Hemoglobin A1c Plasma Lactic Acid Mario Calcium Phosphorus Magnesium Total Bilirubin AST Alkaline Phosphatase Total Creatine Kinase CK-MB (CK-2) Troponin I Total Protein Albumin Triglycerides Urine Protein Urine Glucose (UA) Urine Blood Ur Leukocyte Esterase Urine RBC Urine WBC Amorphous Sediment Urine Bacteria Hyaline Casts Urine Mucus Crossmatch 03/17/17 03/17/17 03/17/17 10:11 12:08 13:01 WBC RBC Hgb Hct MCHC RDW Plt Count Neutrophils # Lymphocytes # ABG pH ABG pCO2 ABG pO2 ABG HCO3 ABG Total CO2 ABG O2 Saturation ABG Hematocrit ABG Lactic Acid VBG pH VBG pCO2 VBG HCO3 Sodium Potassium Chloride Carbon Dioxide BUN Creatinine Glucose POC Glucose (mg/dL) 134 H 132 H 147 H Hemoglobin A1c Plasma Lactic Acid Mario Calcium Phosphorus Magnesium Total Bilirubin AST Alkaline Phosphatase Total Creatine Kinase CK-MB (CK-2) Troponin I Total Protein Albumin Triglycerides Urine Protein Urine Glucose (UA) Urine Blood Ur Leukocyte Esterase Urine RBC Urine WBC Amorphous Sediment Urine Bacteria Hyaline Casts Urine Mucus Crossmatch 03/17/17 03/17/17 03/17/17 14:09 15:14 16:07 WBC RBC Hgb Hct MCHC RDW Plt Count Neutrophils # Lymphocytes # ABG pH ABG pCO2 ABG pO2 ABG HCO3 ABG Total CO2 ABG O2 Saturation ABG Hematocrit ABG Lactic Acid VBG pH VBG pCO2 VBG HCO3 Sodium Potassium Chloride Carbon Dioxide BUN Creatinine Glucose POC Glucose (mg/dL) 150 H 152 H 160 H Hemoglobin A1c Plasma Lactic Acid Mario Calcium Phosphorus Magnesium Total Bilirubin AST Alkaline Phosphatase Total Creatine Kinase CK-MB (CK-2) Troponin I Total Protein Albumin Triglycerides Urine Protein Urine Glucose (UA) Urine Blood Ur Leukocyte Esterase Urine RBC Urine WBC Amorphous Sediment Urine Bacteria Hyaline Casts Urine Mucus Crossmatch 03/17/17 03/17/17 03/17/17 17:18 18:19 19:09 WBC RBC Hgb Hct MCHC RDW Plt Count Neutrophils # Lymphocytes # ABG pH ABG pCO2 ABG pO2 ABG HCO3 ABG Total CO2 ABG O2 Saturation ABG Hematocrit ABG Lactic Acid VBG pH VBG pCO2 VBG HCO3 Sodium Potassium Chloride Carbon Dioxide BUN Creatinine Glucose POC Glucose (mg/dL) 157 H 178 H 174 H Hemoglobin A1c Plasma Lactic Acid Mario Calcium Phosphorus Magnesium Total Bilirubin AST Alkaline Phosphatase Total Creatine Kinase CK-MB (CK-2) Troponin I Total Protein Albumin Triglycerides Urine Protein Urine Glucose (UA) Urine Blood Ur Leukocyte Esterase Urine RBC Urine WBC Amorphous Sediment Urine Bacteria Hyaline Casts Urine Mucus Crossmatch 03/17/17 03/17/17 03/17/17 20:28 21:13 22:17 WBC RBC Hgb Hct MCHC RDW Plt Count Neutrophils # Lymphocytes # ABG pH ABG pCO2 ABG pO2 ABG HCO3 ABG Total CO2 ABG O2 Saturation ABG Hematocrit ABG Lactic Acid VBG pH VBG pCO2 VBG HCO3 Sodium Potassium Chloride Carbon Dioxide BUN Creatinine Glucose POC Glucose (mg/dL) 145 H 160 H 173 H Hemoglobin A1c Plasma Lactic Acid Mario Calcium Phosphorus Magnesium Total Bilirubin AST Alkaline Phosphatase Total Creatine Kinase CK-MB (CK-2) Troponin I Total Protein Albumin Triglycerides Urine Protein Urine Glucose (UA) Urine Blood Ur Leukocyte Esterase Urine RBC Urine WBC Amorphous Sediment Urine Bacteria Hyaline Casts Urine Mucus Crossmatch 03/17/17 03/17/17 03/18/17 23:29 23:56 01:02 WBC RBC Hgb Hct MCHC RDW Plt Count Neutrophils # Lymphocytes # ABG pH ABG pCO2 ABG pO2 ABG HCO3 ABG Total CO2 ABG O2 Saturation ABG Hematocrit ABG Lactic Acid VBG pH VBG pCO2 VBG HCO3 Sodium Potassium Chloride Carbon Dioxide BUN Creatinine Glucose POC Glucose (mg/dL) 170 H 149 H 146 H Hemoglobin A1c Plasma Lactic Acid Mario Calcium Phosphorus Magnesium Total Bilirubin AST Alkaline Phosphatase Total Creatine Kinase CK-MB (CK-2) Troponin I Total Protein Albumin Triglycerides Urine Protein Urine Glucose (UA) Urine Blood Ur Leukocyte Esterase Urine RBC Urine WBC Amorphous Sediment Urine Bacteria Hyaline Casts Urine Mucus Crossmatch 03/18/17 03/18/17 03/18/17 02:25 03:01 04:14 WBC RBC Hgb Hct MCHC RDW Plt Count Neutrophils # Lymphocytes # ABG pH ABG pCO2 ABG pO2 ABG HCO3 ABG Total CO2 ABG O2 Saturation ABG Hematocrit ABG Lactic Acid VBG pH VBG pCO2 VBG HCO3 Sodium Potassium Chloride Carbon Dioxide BUN Creatinine Glucose POC Glucose (mg/dL) 138 H 157 H 135 H Hemoglobin A1c Plasma Lactic Acid Mario Calcium Phosphorus Magnesium Total Bilirubin AST Alkaline Phosphatase Total Creatine Kinase CK-MB (CK-2) Troponin I Total Protein Albumin Triglycerides Urine Protein Urine Glucose (UA) Urine Blood Ur Leukocyte Esterase Urine RBC Urine WBC Amorphous Sediment Urine Bacteria Hyaline Casts Urine Mucus Crossmatch 03/18/17 03/18/17 03/18/17 05:32 05:50 05:50 WBC 11.5 H RBC 3.19 L Hgb 9.3 L D Hct 29.4 L MCHC RDW Plt Count 132 L Neutrophils # 10.1 H Lymphocytes # ABG pH 7.26 L ABG pCO2 30 L ABG pO2 155 H ABG HCO3 12 L ABG Total CO2 14 L ABG O2 Saturation 99.0 H ABG Hematocrit ABG Lactic Acid VBG pH VBG pCO2 VBG HCO3 Sodium Potassium Chloride 115 H Carbon Dioxide 13 L BUN 86 H* Creatinine 4.80 H Glucose 140 H POC Glucose (mg/dL) Hemoglobin A1c Plasma Lactic Acid Mario Calcium 7.1 L Phosphorus Magnesium 2.4 H Total Bilirubin AST Alkaline Phosphatase Total Creatine Kinase CK-MB (CK-2) Troponin I Total Protein Albumin Triglycerides Urine Protein Urine Glucose (UA) Urine Blood Ur Leukocyte Esterase Urine RBC Urine WBC Amorphous Sediment Urine Bacteria Hyaline Casts Urine Mucus Crossmatch 03/18/17 03/18/17 03/18/17 05:53 06:56 08:02 WBC RBC Hgb Hct MCHC RDW Plt Count Neutrophils # Lymphocytes # ABG pH ABG pCO2 ABG pO2 ABG HCO3 ABG Total CO2 ABG O2 Saturation ABG Hematocrit ABG Lactic Acid VBG pH VBG pCO2 VBG HCO3 Sodium Potassium Chloride Carbon Dioxide BUN Creatinine Glucose POC Glucose (mg/dL) 135 H 126 H 129 H Hemoglobin A1c Plasma Lactic Acid Mario Calcium Phosphorus Magnesium Total Bilirubin AST Alkaline Phosphatase Total Creatine Kinase CK-MB (CK-2) Troponin I Total Protein Albumin Triglycerides Urine Protein Urine Glucose (UA) Urine Blood Ur Leukocyte Esterase Urine RBC Urine WBC Amorphous Sediment Urine Bacteria Hyaline Casts Urine Mucus Crossmatch 03/18/17 03/18/17 03/18/17 09:07 10:14 12:03 WBC RBC Hgb Hct MCHC RDW Plt Count Neutrophils # Lymphocytes # ABG pH ABG pCO2 ABG pO2 ABG HCO3 ABG Total CO2 ABG O2 Saturation ABG Hematocrit ABG Lactic Acid VBG pH VBG pCO2 VBG HCO3 Sodium Potassium Chloride Carbon Dioxide BUN Creatinine Glucose POC Glucose (mg/dL) 122 H 130 H 130 H Hemoglobin A1c Plasma Lactic Acid Mario Calcium Phosphorus Magnesium Total Bilirubin AST Alkaline Phosphatase Total Creatine Kinase CK-MB (CK-2) Troponin I Total Protein Albumin Triglycerides Urine Protein Urine Glucose (UA) Urine Blood Ur Leukocyte Esterase Urine RBC Urine WBC Amorphous Sediment Urine Bacteria Hyaline Casts Urine Mucus Crossmatch 03/18/17 03/18/17 03/18/17 13:58 16:02 18:01 WBC RBC Hgb Hct MCHC RDW Plt Count Neutrophils # Lymphocytes # ABG pH ABG pCO2 ABG pO2 ABG HCO3 ABG Total CO2 ABG O2 Saturation ABG Hematocrit ABG Lactic Acid VBG pH VBG pCO2 VBG HCO3 Sodium Potassium Chloride Carbon Dioxide BUN Creatinine Glucose POC Glucose (mg/dL) 132 H 130 H 134 H Hemoglobin A1c Plasma Lactic Acid Mario Calcium Phosphorus Magnesium Total Bilirubin AST Alkaline Phosphatase Total Creatine Kinase CK-MB (CK-2) Troponin I Total Protein Albumin Triglycerides Urine Protein Urine Glucose (UA) Urine Blood Ur Leukocyte Esterase Urine RBC Urine WBC Amorphous Sediment Urine Bacteria Hyaline Casts Urine Mucus Crossmatch 03/18/17 03/18/17 03/18/17 20:22 22:14 23:46 WBC RBC Hgb Hct MCHC RDW Plt Count Neutrophils # Lymphocytes # ABG pH ABG pCO2 ABG pO2 ABG HCO3 ABG Total CO2 ABG O2 Saturation ABG Hematocrit ABG Lactic Acid VBG pH VBG pCO2 VBG HCO3 Sodium Potassium Chloride Carbon Dioxide BUN Creatinine Glucose POC Glucose (mg/dL) 134 H 141 H 140 H Hemoglobin A1c Plasma Lactic Acid Mario Calcium Phosphorus Magnesium Total Bilirubin AST Alkaline Phosphatase Total Creatine Kinase CK-MB (CK-2) Troponin I Total Protein Albumin Triglycerides Urine Protein Urine Glucose (UA) Urine Blood Ur Leukocyte Esterase Urine RBC Urine WBC Amorphous Sediment Urine Bacteria Hyaline Casts Urine Mucus Crossmatch 03/19/17 03/19/17 03/19/17 04:10 04:10 04:10 WBC 17.4 H RBC 3.06 L Hgb 9.0 L Hct 28.6 L MCHC RDW Plt Count 122 L Neutrophils # 15.9 H Lymphocytes # 0.9 L ABG pH ABG pCO2 ABG pO2 ABG HCO3 ABG Total CO2 ABG O2 Saturation ABG Hematocrit ABG Lactic Acid VBG pH VBG pCO2 VBG HCO3 Sodium Potassium Chloride 118 H Carbon Dioxide 9 L* BUN 84 H* Creatinine 4.70 H Glucose 133 H POC Glucose (mg/dL) 138 H Hemoglobin A1c Plasma Lactic Acid Mario Calcium 7.3 L Phosphorus Magnesium Total Bilirubin AST Alkaline Phosphatase Total Creatine Kinase CK-MB (CK-2) Troponin I Total Protein Albumin Triglycerides Urine Protein Urine Glucose (UA) Urine Blood Ur Leukocyte Esterase Urine RBC Urine WBC Amorphous Sediment Urine Bacteria Hyaline Casts Urine Mucus Crossmatch 03/19/17 03/19/17 03/19/17 05:00 08:10 11:56 WBC RBC Hgb Hct MCHC RDW Plt Count Neutrophils # Lymphocytes # ABG pH 7.22 L ABG pCO2 24 L ABG pO2 153 H ABG HCO3 10 L* ABG Total CO2 10 L ABG O2 Saturation 99.0 H ABG Hematocrit ABG Lactic Acid VBG pH VBG pCO2 VBG HCO3 Sodium Potassium Chloride Carbon Dioxide BUN Creatinine Glucose POC Glucose (mg/dL) 138 H 158 H Hemoglobin A1c Plasma Lactic Acid Mario Calcium Phosphorus Magnesium Total Bilirubin AST Alkaline Phosphatase Total Creatine Kinase CK-MB (CK-2) Troponin I Total Protein Albumin Triglycerides Urine Protein Urine Glucose (UA) Urine Blood Ur Leukocyte Esterase Urine RBC Urine WBC Amorphous Sediment Urine Bacteria Hyaline Casts Urine Mucus Crossmatch 03/19/17 03/19/17 03/19/17 15:21 19:15 20:13 WBC RBC Hgb Hct MCHC RDW Plt Count Neutrophils # Lymphocytes # ABG pH ABG pCO2 ABG pO2 ABG HCO3 ABG Total CO2 ABG O2 Saturation ABG Hematocrit ABG Lactic Acid VBG pH VBG pCO2 VBG HCO3 Sodium Potassium Chloride Carbon Dioxide BUN Creatinine Glucose POC Glucose (mg/dL) 140 H 134 H 127 H Hemoglobin A1c Plasma Lactic Acid Mario Calcium Phosphorus Magnesium Total Bilirubin AST Alkaline Phosphatase Total Creatine Kinase CK-MB (CK-2) Troponin I Total Protein Albumin Triglycerides Urine Protein Urine Glucose (UA) Urine Blood Ur Leukocyte Esterase Urine RBC Urine WBC Amorphous Sediment Urine Bacteria Hyaline Casts Urine Mucus Crossmatch 03/19/17 03/20/17 03/20/17 23:45 03:53 04:22 WBC RBC Hgb Hct MCHC RDW Plt Count Neutrophils # Lymphocytes # ABG pH 7.20 L* ABG pCO2 26 L ABG pO2 170 H ABG HCO3 10 L* ABG Total CO2 11 L ABG O2 Saturation 99.0 H ABG Hematocrit ABG Lactic Acid VBG pH VBG pCO2 VBG HCO3 Sodium Potassium Chloride Carbon Dioxide BUN Creatinine Glucose POC Glucose (mg/dL) 123 H 127 H Hemoglobin A1c Plasma Lactic Acid Mario Calcium Phosphorus Magnesium Total Bilirubin AST Alkaline Phosphatase Total Creatine Kinase CK-MB (CK-2) Troponin I Total Protein Albumin Triglycerides Urine Protein Urine Glucose (UA) Urine Blood Ur Leukocyte Esterase Urine RBC Urine WBC Amorphous Sediment Urine Bacteria Hyaline Casts Urine Mucus Crossmatch 03/20/17 03/20/17 03/20/17 04:45 04:45 08:39 WBC 20.4 H RBC 2.92 L Hgb 8.5 L Hct 26.8 L MCHC RDW Plt Count 113 L Neutrophils # 18.6 H Lymphocytes # ABG pH ABG pCO2 ABG pO2 ABG HCO3 ABG Total CO2 ABG O2 Saturation ABG Hematocrit ABG Lactic Acid VBG pH VBG pCO2 VBG HCO3 Sodium Potassium Chloride 123 H* Carbon Dioxide 9 L* BUN 84 H* Creatinine 4.52 H Glucose 125 H POC Glucose (mg/dL) 137 H Hemoglobin A1c Plasma Lactic Acid Mario Calcium 7.3 L Phosphorus 4.9 H Magnesium Total Bilirubin AST Alkaline Phosphatase Total Creatine Kinase CK-MB (CK-2) Troponin I Total Protein Albumin Triglycerides Urine Protein Urine Glucose (UA) Urine Blood Ur Leukocyte Esterase Urine RBC Urine WBC Amorphous Sediment Urine Bacteria Hyaline Casts Urine Mucus Crossmatch 03/20/17 03/20/17 03/20/17 11:29 11:36 12:10 WBC RBC Hgb Hct MCHC RDW Plt Count Neutrophils # Lymphocytes # ABG pH 7.23 L ABG pCO2 25 L ABG pO2 164 H ABG HCO3 10 L* ABG Total CO2 11 L ABG O2 Saturation 99.2 H ABG Hematocrit ABG Lactic Acid VBG pH VBG pCO2 VBG HCO3 Sodium Potassium Chloride 124 H* Carbon Dioxide 10 L* BUN 83 H* Creatinine 4.41 H Glucose 115 H POC Glucose (mg/dL) 102 H Hemoglobin A1c Plasma Lactic Acid Mario Calcium 7.4 L Phosphorus Magnesium Total Bilirubin 1.5 H AST Alkaline Phosphatase Total Creatine Kinase CK-MB (CK-2) Troponin I Total Protein 3.4 L Albumin 1.7 L Triglycerides 171 H Urine Protein Urine Glucose (UA) Urine Blood Ur Leukocyte Esterase Urine RBC Urine WBC Amorphous Sediment Urine Bacteria Hyaline Casts Urine Mucus Crossmatch 03/20/17 03/20/17 03/20/17 16:49 20:07 23:57 WBC RBC Hgb Hct MCHC RDW Plt Count Neutrophils # Lymphocytes # ABG pH ABG pCO2 ABG pO2 ABG HCO3 ABG Total CO2 ABG O2 Saturation ABG Hematocrit ABG Lactic Acid VBG pH VBG pCO2 VBG HCO3 Sodium Potassium Chloride Carbon Dioxide BUN Creatinine Glucose POC Glucose (mg/dL) 152 H 197 H 208 H Hemoglobin A1c Plasma Lactic Acid Mario Calcium Phosphorus Magnesium Total Bilirubin AST Alkaline Phosphatase Total Creatine Kinase CK-MB (CK-2) Troponin I Total Protein Albumin Triglycerides Urine Protein Urine Glucose (UA) Urine Blood Ur Leukocyte Esterase Urine RBC Urine WBC Amorphous Sediment Urine Bacteria Hyaline Casts Urine Mucus Crossmatch 03/21/17 03/21/17 03/21/17 03:46 04:11 04:15 WBC 14.1 H RBC 2.94 L Hgb 8.5 L Hct 27.2 L MCHC RDW 15.7 H Plt Count 106 L Neutrophils # 12.3 H Lymphocytes # 0.9 L ABG pH 7.30 L ABG pCO2 26 L ABG pO2 163 H ABG HCO3 12 L ABG Total CO2 13 L ABG O2 Saturation 99.0 H ABG Hematocrit ABG Lactic Acid VBG pH VBG pCO2 VBG HCO3 Sodium Potassium Chloride Carbon Dioxide BUN Creatinine Glucose POC Glucose (mg/dL) 151 H Hemoglobin A1c Plasma Lactic Acid Mario Calcium Phosphorus Magnesium Total Bilirubin AST Alkaline Phosphatase Total Creatine Kinase CK-MB (CK-2) Troponin I Total Protein Albumin Triglycerides Urine Protein Urine Glucose (UA) Urine Blood Ur Leukocyte Esterase Urine RBC Urine WBC Amorphous Sediment Urine Bacteria Hyaline Casts Urine Mucus Crossmatch 03/21/17 03/21/17 03/21/17 04:15 08:04 12:12 WBC RBC Hgb Hct MCHC RDW Plt Count Neutrophils # Lymphocytes # ABG pH ABG pCO2 ABG pO2 ABG HCO3 ABG Total CO2 ABG O2 Saturation ABG Hematocrit ABG Lactic Acid VBG pH VBG pCO2 VBG HCO3 Sodium 147 H Potassium Chloride 124 H* Carbon Dioxide 11 L BUN 91 H* Creatinine 4.70 H Glucose 152 H POC Glucose (mg/dL) 154 H 185 H Hemoglobin A1c Plasma Lactic Acid Mario Calcium 7.6 L Phosphorus 4.7 H Magnesium Total Bilirubin AST Alkaline Phosphatase Total Creatine Kinase CK-MB (CK-2) Troponin I Total Protein Albumin 1.7 L Triglycerides Urine Protein Urine Glucose (UA) Urine Blood Ur Leukocyte Esterase Urine RBC Urine WBC Amorphous Sediment Urine Bacteria Hyaline Casts Urine Mucus Crossmatch 03/21/17 03/21/17 03/21/17 13:25 16:09 20:14 WBC RBC Hgb Hct MCHC RDW Plt Count Neutrophils # Lymphocytes # ABG pH 7.32 L ABG pCO2 24 L ABG pO2 155 H ABG HCO3 12 L ABG Total CO2 13 L ABG O2 Saturation 99.3 H ABG Hematocrit ABG Lactic Acid VBG pH VBG pCO2 VBG HCO3 Sodium Potassium Chloride Carbon Dioxide BUN Creatinine Glucose POC Glucose (mg/dL) 312 H 348 H Hemoglobin A1c Plasma Lactic Acid Mario Calcium Phosphorus Magnesium Total Bilirubin AST Alkaline Phosphatase Total Creatine Kinase CK-MB (CK-2) Troponin I Total Protein Albumin Triglycerides Urine Protein Urine Glucose (UA) Urine Blood Ur Leukocyte Esterase Urine RBC Urine WBC Amorphous Sediment Urine Bacteria Hyaline Casts Urine Mucus Crossmatch 03/21/17 03/22/17 03/22/17 20:57 00:14 04:17 WBC RBC Hgb Hct MCHC RDW Plt Count Neutrophils # Lymphocytes # ABG pH ABG pCO2 ABG pO2 ABG HCO3 ABG Total CO2 ABG O2 Saturation ABG Hematocrit ABG Lactic Acid VBG pH VBG pCO2 VBG HCO3 Sodium Potassium Chloride Carbon Dioxide BUN Creatinine Glucose POC Glucose (mg/dL) 360 H 378 H 449 H Hemoglobin A1c Plasma Lactic Acid Mario Calcium Phosphorus Magnesium Total Bilirubin AST Alkaline Phosphatase Total Creatine Kinase CK-MB (CK-2) Troponin I Total Protein Albumin Triglycerides Urine Protein Urine Glucose (UA) Urine Blood Ur Leukocyte Esterase Urine RBC Urine WBC Amorphous Sediment Urine Bacteria Hyaline Casts Urine Mucus Crossmatch 03/22/17 03/22/17 03/22/17 05:10 05:45 06:00 WBC 16.5 H RBC 3.15 L Hgb 9.3 L Hct 30.3 L MCHC 30.7 L RDW 15.6 H Plt Count Neutrophils # Lymphocytes # ABG pH 7.26 L ABG pCO2 31 L ABG pO2 134 H ABG HCO3 13 L ABG Total CO2 14 L ABG O2 Saturation 99.0 H ABG Hematocrit ABG Lactic Acid VBG pH VBG pCO2 VBG HCO3 Sodium Potassium Chloride Carbon Dioxide BUN Creatinine Glucose POC Glucose (mg/dL) 460 H Hemoglobin A1c Plasma Lactic Acid Mario Calcium Phosphorus Magnesium Total Bilirubin AST Alkaline Phosphatase Total Creatine Kinase CK-MB (CK-2) Troponin I Total Protein Albumin Triglycerides Urine Protein Urine Glucose (UA) Urine Blood Ur Leukocyte Esterase Urine RBC Urine WBC Amorphous Sediment Urine Bacteria Hyaline Casts Urine Mucus Crossmatch 03/22/17 03/22/17 03/22/17 08:14 09:21 09:51 WBC RBC Hgb Hct MCHC RDW Plt Count Neutrophils # Lymphocytes # ABG pH ABG pCO2 ABG pO2 ABG HCO3 ABG Total CO2 ABG O2 Saturation ABG Hematocrit ABG Lactic Acid VBG pH VBG pCO2 VBG HCO3 Sodium Potassium Chloride Carbon Dioxide BUN Creatinine Glucose POC Glucose (mg/dL) 496 H 407 H 430 H Hemoglobin A1c Plasma Lactic Acid Mario Calcium Phosphorus Magnesium Total Bilirubin AST Alkaline Phosphatase Total Creatine Kinase CK-MB (CK-2) Troponin I Total Protein Albumin Triglycerides Urine Protein Urine Glucose (UA) Urine Blood Ur Leukocyte Esterase Urine RBC Urine WBC Amorphous Sediment Urine Bacteria Hyaline Casts Urine Mucus Crossmatch 03/22/17 03/22/17 03/22/17 10:55 11:43 11:46 WBC RBC Hgb Hct MCHC RDW Plt Count Neutrophils # Lymphocytes # ABG pH ABG pCO2 25 L ABG pO2 165 H ABG HCO3 13 L ABG Total CO2 14 L ABG O2 Saturation 99.0 H ABG Hematocrit ABG Lactic Acid VBG pH VBG pCO2 VBG HCO3 Sodium Potassium Chloride Carbon Dioxide BUN Creatinine Glucose POC Glucose (mg/dL) 410 H 393 H Hemoglobin A1c Plasma Lactic Acid Mario Calcium Phosphorus Magnesium Total Bilirubin AST Alkaline Phosphatase Total Creatine Kinase CK-MB (CK-2) Troponin I Total Protein Albumin Triglycerides Urine Protein Urine Glucose (UA) Urine Blood Ur Leukocyte Esterase Urine RBC Urine WBC Amorphous Sediment Urine Bacteria Hyaline Casts Urine Mucus Crossmatch 03/22/17 03/22/17 03/22/17 13:48 15:17 17:27 WBC RBC Hgb Hct MCHC RDW Plt Count Neutrophils # Lymphocytes # ABG pH ABG pCO2 ABG pO2 ABG HCO3 ABG Total CO2 ABG O2 Saturation ABG Hematocrit ABG Lactic Acid VBG pH VBG pCO2 VBG HCO3 Sodium Potassium Chloride Carbon Dioxide BUN Creatinine Glucose POC Glucose (mg/dL) 331 H 291 H 237 H Hemoglobin A1c Plasma Lactic Acid Mario Calcium Phosphorus Magnesium Total Bilirubin AST Alkaline Phosphatase Total Creatine Kinase CK-MB (CK-2) Troponin I Total Protein Albumin Triglycerides Urine Protein Urine Glucose (UA) Urine Blood Ur Leukocyte Esterase Urine RBC Urine WBC Amorphous Sediment Urine Bacteria Hyaline Casts Urine Mucus Crossmatch 03/22/17 03/22/17 03/22/17 18:48 20:14 21:19 WBC RBC Hgb Hct MCHC RDW Plt Count Neutrophils # Lymphocytes # ABG pH ABG pCO2 ABG pO2 ABG HCO3 ABG Total CO2 ABG O2 Saturation ABG Hematocrit ABG Lactic Acid VBG pH VBG pCO2 VBG HCO3 Sodium Potassium Chloride Carbon Dioxide BUN Creatinine Glucose POC Glucose (mg/dL) 206 H 181 H 170 H Hemoglobin A1c Plasma Lactic Acid Mario Calcium Phosphorus Magnesium Total Bilirubin AST Alkaline Phosphatase Total Creatine Kinase CK-MB (CK-2) Troponin I Total Protein Albumin Triglycerides Urine Protein Urine Glucose (UA) Urine Blood Ur Leukocyte Esterase Urine RBC Urine WBC Amorphous Sediment Urine Bacteria Hyaline Casts Urine Mucus Crossmatch 03/22/17 03/22/17 03/22/17 22:20 22:55 Unknown WBC RBC Hgb Hct MCHC RDW Plt Count Neutrophils # Lymphocytes # ABG pH ABG pCO2 ABG pO2 ABG HCO3 ABG Total CO2 ABG O2 Saturation ABG Hematocrit ABG Lactic Acid VBG pH VBG pCO2 VBG HCO3 Sodium Potassium Chloride 121 H* Carbon Dioxide 14 L BUN 97 H* Creatinine 4.53 H Glucose 522 H* POC Glucose (mg/dL) 159 H 151 H Hemoglobin A1c Plasma Lactic Acid Mario Calcium 7.6 L Phosphorus Magnesium Total Bilirubin AST Alkaline Phosphatase Total Creatine Kinase CK-MB (CK-2) Troponin I Total Protein Albumin 1.8 L Triglycerides Urine Protein Urine Glucose (UA) Urine Blood Ur Leukocyte Esterase Urine RBC Urine WBC Amorphous Sediment Urine Bacteria Hyaline Casts Urine Mucus Crossmatch 03/23/17 03/23/17 03/23/17 00:08 01:18 02:43 WBC RBC Hgb Hct MCHC RDW Plt Count Neutrophils # Lymphocytes # ABG pH ABG pCO2 ABG pO2 ABG HCO3 ABG Total CO2 ABG O2 Saturation ABG Hematocrit ABG Lactic Acid VBG pH VBG pCO2 VBG HCO3 Sodium Potassium Chloride Carbon Dioxide BUN Creatinine Glucose POC Glucose (mg/dL) 157 H 149 H 163 H Hemoglobin A1c Plasma Lactic Acid Mario Calcium Phosphorus Magnesium Total Bilirubin AST Alkaline Phosphatase Total Creatine Kinase CK-MB (CK-2) Troponin I Total Protein Albumin Triglycerides Urine Protein Urine Glucose (UA) Urine Blood Ur Leukocyte Esterase Urine RBC Urine WBC Amorphous Sediment Urine Bacteria Hyaline Casts Urine Mucus Crossmatch 03/23/17 03/23/17 03/23/17 04:09 05:17 05:30 WBC RBC Hgb Hct MCHC RDW Plt Count Neutrophils # Lymphocytes # ABG pH ABG pCO2 ABG pO2 ABG HCO3 ABG Total CO2 ABG O2 Saturation ABG Hematocrit ABG Lactic Acid VBG pH VBG pCO2 VBG HCO3 Sodium 148 H Potassium Chloride 123 H* Carbon Dioxide 16 L BUN 104 H* Creatinine 4.20 H Glucose 161 H POC Glucose (mg/dL) 138 H 136 H Hemoglobin A1c Plasma Lactic Acid Mario Calcium 7.9 L Phosphorus Magnesium Total Bilirubin AST Alkaline Phosphatase Total Creatine Kinase CK-MB (CK-2) Troponin I Total Protein Albumin 1.7 L Triglycerides Urine Protein Urine Glucose (UA) Urine Blood Ur Leukocyte Esterase Urine RBC Urine WBC Amorphous Sediment Urine Bacteria Hyaline Casts Urine Mucus Crossmatch 03/23/17 03/23/17 03/23/17 05:30 06:19 07:24 WBC 13.0 H RBC 2.91 L Hgb 8.3 L Hct 26.8 L MCHC RDW 15.6 H Plt Count Neutrophils # 10.7 H Lymphocytes # ABG pH ABG pCO2 ABG pO2 ABG HCO3 ABG Total CO2 ABG O2 Saturation ABG Hematocrit ABG Lactic Acid VBG pH VBG pCO2 VBG HCO3 Sodium Potassium Chloride Carbon Dioxide BUN Creatinine Glucose POC Glucose (mg/dL) 174 H 180 H Hemoglobin A1c Plasma Lactic Acid Mario Calcium Phosphorus Magnesium Total Bilirubin AST Alkaline Phosphatase Total Creatine Kinase CK-MB (CK-2) Troponin I Total Protein Albumin Triglycerides Urine Protein Urine Glucose (UA) Urine Blood Ur Leukocyte Esterase Urine RBC Urine WBC Amorphous Sediment Urine Bacteria Hyaline Casts Urine Mucus Crossmatch 03/23/17 03/23/17 03/23/17 08:03 09:12 09:58 WBC RBC Hgb Hct MCHC RDW Plt Count Neutrophils # Lymphocytes # ABG pH ABG pCO2 ABG pO2 ABG HCO3 ABG Total CO2 ABG O2 Saturation ABG Hematocrit ABG Lactic Acid VBG pH VBG pCO2 VBG HCO3 Sodium Potassium Chloride Carbon Dioxide BUN Creatinine Glucose POC Glucose (mg/dL) 186 H 165 H 154 H Hemoglobin A1c Plasma Lactic Acid Mario Calcium Phosphorus Magnesium Total Bilirubin AST Alkaline Phosphatase Total Creatine Kinase CK-MB (CK-2) Troponin I Total Protein Albumin Triglycerides Urine Protein Urine Glucose (UA) Urine Blood Ur Leukocyte Esterase Urine RBC Urine WBC Amorphous Sediment Urine Bacteria Hyaline Casts Urine Mucus Crossmatch 03/23/17 03/23/17 03/23/17 11:05 12:28 13:08 WBC RBC Hgb Hct MCHC RDW Plt Count Neutrophils # Lymphocytes # ABG pH ABG pCO2 ABG pO2 ABG HCO3 ABG Total CO2 ABG O2 Saturation ABG Hematocrit ABG Lactic Acid VBG pH VBG pCO2 VBG HCO3 Sodium Potassium Chloride Carbon Dioxide BUN Creatinine Glucose POC Glucose (mg/dL) 154 H 157 H 171 H Hemoglobin A1c Plasma Lactic Acid Mario Calcium Phosphorus Magnesium Total Bilirubin AST Alkaline Phosphatase Total Creatine Kinase CK-MB (CK-2) Troponin I Total Protein Albumin Triglycerides Urine Protein Urine Glucose (UA) Urine Blood Ur Leukocyte Esterase Urine RBC Urine WBC Amorphous Sediment Urine Bacteria Hyaline Casts Urine Mucus Crossmatch 03/23/17 03/23/17 03/23/17 13:10 13:55 15:06 WBC RBC Hgb Hct MCHC RDW Plt Count Neutrophils # Lymphocytes # ABG pH ABG pCO2 ABG pO2 ABG HCO3 ABG Total CO2 ABG O2 Saturation ABG Hematocrit ABG Lactic Acid VBG pH VBG pCO2 VBG HCO3 Sodium Potassium 5.3 H Chloride Carbon Dioxide BUN Creatinine Glucose POC Glucose (mg/dL) 188 H 163 H Hemoglobin A1c Plasma Lactic Acid Mario Calcium Phosphorus Magnesium Total Bilirubin AST Alkaline Phosphatase Total Creatine Kinase CK-MB (CK-2) Troponin I Total Protein Albumin Triglycerides Urine Protein Urine Glucose (UA) Urine Blood Ur Leukocyte Esterase Urine RBC Urine WBC Amorphous Sediment Urine Bacteria Hyaline Casts Urine Mucus Crossmatch 03/23/17 03/23/17 03/23/17 16:04 16:58 18:56 WBC RBC Hgb Hct MCHC RDW Plt Count Neutrophils # Lymphocytes # ABG pH ABG pCO2 ABG pO2 ABG HCO3 ABG Total CO2 ABG O2 Saturation ABG Hematocrit ABG Lactic Acid VBG pH VBG pCO2 VBG HCO3 Sodium Potassium Chloride Carbon Dioxide BUN Creatinine Glucose POC Glucose (mg/dL) 147 H 152 H 145 H Hemoglobin A1c Plasma Lactic Acid Mario Calcium Phosphorus Magnesium Total Bilirubin AST Alkaline Phosphatase Total Creatine Kinase CK-MB (CK-2) Troponin I Total Protein Albumin Triglycerides Urine Protein Urine Glucose (UA) Urine Blood Ur Leukocyte Esterase Urine RBC Urine WBC Amorphous Sediment Urine Bacteria Hyaline Casts Urine Mucus Crossmatch 03/23/17 03/23/17 03/23/17 19:50 21:27 22:16 WBC RBC Hgb Hct MCHC RDW Plt Count Neutrophils # Lymphocytes # ABG pH ABG pCO2 ABG pO2 ABG HCO3 ABG Total CO2 ABG O2 Saturation ABG Hematocrit ABG Lactic Acid VBG pH VBG pCO2 VBG HCO3 Sodium Potassium Chloride Carbon Dioxide BUN Creatinine Glucose POC Glucose (mg/dL) 128 H 131 H 188 H Hemoglobin A1c Plasma Lactic Acid Mario Calcium Phosphorus Magnesium Total Bilirubin AST Alkaline Phosphatase Total Creatine Kinase CK-MB (CK-2) Troponin I Total Protein Albumin Triglycerides Urine Protein Urine Glucose (UA) Urine Blood Ur Leukocyte Esterase Urine RBC Urine WBC Amorphous Sediment Urine Bacteria Hyaline Casts Urine Mucus Crossmatch 03/23/17 03/23/17 03/24/17 23:08 23:59 01:30 WBC RBC Hgb Hct MCHC RDW Plt Count Neutrophils # Lymphocytes # ABG pH ABG pCO2 ABG pO2 ABG HCO3 ABG Total CO2 ABG O2 Saturation ABG Hematocrit ABG Lactic Acid VBG pH VBG pCO2 VBG HCO3 Sodium Potassium Chloride Carbon Dioxide BUN Creatinine Glucose POC Glucose (mg/dL) 201 H 198 H 200 H Hemoglobin A1c Plasma Lactic Acid Mario Calcium Phosphorus Magnesium Total Bilirubin AST Alkaline Phosphatase Total Creatine Kinase CK-MB (CK-2) Troponin I Total Protein Albumin Triglycerides Urine Protein Urine Glucose (UA) Urine Blood Ur Leukocyte Esterase Urine RBC Urine WBC Amorphous Sediment Urine Bacteria Hyaline Casts Urine Mucus Crossmatch 03/24/17 03/24/17 03/24/17 02:18 02:54 04:09 WBC RBC Hgb Hct MCHC RDW Plt Count Neutrophils # Lymphocytes # ABG pH ABG pCO2 ABG pO2 ABG HCO3 ABG Total CO2 ABG O2 Saturation ABG Hematocrit ABG Lactic Acid VBG pH VBG pCO2 VBG HCO3 Sodium Potassium Chloride Carbon Dioxide BUN Creatinine Glucose POC Glucose (mg/dL) 195 H 195 H 184 H Hemoglobin A1c Plasma Lactic Acid Mario Calcium Phosphorus Magnesium Total Bilirubin AST Alkaline Phosphatase Total Creatine Kinase CK-MB (CK-2) Troponin I Total Protein Albumin Triglycerides Urine Protein Urine Glucose (UA) Urine Blood Ur Leukocyte Esterase Urine RBC Urine WBC Amorphous Sediment Urine Bacteria Hyaline Casts Urine Mucus Crossmatch 03/24/17 03/24/17 03/24/17 05:02 05:50 05:50 WBC 15.0 H RBC 2.99 L Hgb 8.5 L Hct 27.5 L MCHC 30.9 L RDW 16.5 H Plt Count Neutrophils # 12.5 H Lymphocytes # ABG pH ABG pCO2 ABG pO2 ABG HCO3 ABG Total CO2 ABG O2 Saturation ABG Hematocrit ABG Lactic Acid VBG pH VBG pCO2 VBG HCO3 Sodium Potassium 3.4 L Chloride 117 H Carbon Dioxide 19 L BUN 105 H* Creatinine 3.71 H Glucose 142 H POC Glucose (mg/dL) 177 H Hemoglobin A1c Plasma Lactic Acid Mario Calcium 7.8 L Phosphorus 1.7 L Magnesium Total Bilirubin AST Alkaline Phosphatase Total Creatine Kinase CK-MB (CK-2) Troponin I Total Protein Albumin 1.8 L Triglycerides Urine Protein Urine Glucose (UA) Urine Blood Ur Leukocyte Esterase Urine RBC Urine WBC Amorphous Sediment Urine Bacteria Hyaline Casts Urine Mucus Crossmatch 03/24/17 03/24/17 03/24/17 06:44 10:07 11:14 WBC RBC Hgb Hct MCHC RDW Plt Count Neutrophils # Lymphocytes # ABG pH ABG pCO2 ABG pO2 ABG HCO3 ABG Total CO2 ABG O2 Saturation ABG Hematocrit ABG Lactic Acid VBG pH VBG pCO2 VBG HCO3 Sodium Potassium Chloride Carbon Dioxide BUN Creatinine Glucose POC Glucose (mg/dL) 142 H 142 H 185 H Hemoglobin A1c Plasma Lactic Acid Mario Calcium Phosphorus Magnesium Total Bilirubin AST Alkaline Phosphatase Total Creatine Kinase CK-MB (CK-2) Troponin I Total Protein Albumin Triglycerides Urine Protein Urine Glucose (UA) Urine Blood Ur Leukocyte Esterase Urine RBC Urine WBC Amorphous Sediment Urine Bacteria Hyaline Casts Urine Mucus Crossmatch 03/24/17 03/24/17 03/24/17 12:54 14:22 15:48 WBC RBC Hgb Hct MCHC RDW Plt Count Neutrophils # Lymphocytes # ABG pH ABG pCO2 ABG pO2 ABG HCO3 ABG Total CO2 ABG O2 Saturation ABG Hematocrit ABG Lactic Acid VBG pH VBG pCO2 VBG HCO3 Sodium Potassium Chloride Carbon Dioxide BUN Creatinine Glucose POC Glucose (mg/dL) 200 H 229 H 250 H Hemoglobin A1c Plasma Lactic Acid Mario Calcium Phosphorus Magnesium Total Bilirubin AST Alkaline Phosphatase Total Creatine Kinase CK-MB (CK-2) Troponin I Total Protein Albumin Triglycerides Urine Protein Urine Glucose (UA) Urine Blood Ur Leukocyte Esterase Urine RBC Urine WBC Amorphous Sediment Urine Bacteria Hyaline Casts Urine Mucus Crossmatch 03/24/17 03/24/17 03/24/17 16:55 17:37 18:47 WBC RBC Hgb Hct MCHC RDW Plt Count Neutrophils # Lymphocytes # ABG pH ABG pCO2 ABG pO2 ABG HCO3 ABG Total CO2 ABG O2 Saturation ABG Hematocrit ABG Lactic Acid VBG pH VBG pCO2 VBG HCO3 Sodium Potassium Chloride Carbon Dioxide BUN Creatinine Glucose POC Glucose (mg/dL) 258 H 259 H 253 H Hemoglobin A1c Plasma Lactic Acid Mario Calcium Phosphorus Magnesium Total Bilirubin AST Alkaline Phosphatase Total Creatine Kinase CK-MB (CK-2) Troponin I Total Protein Albumin Triglycerides Urine Protein Urine Glucose (UA) Urine Blood Ur Leukocyte Esterase Urine RBC Urine WBC Amorphous Sediment Urine Bacteria Hyaline Casts Urine Mucus Crossmatch 03/24/17 03/24/17 03/24/17 20:17 21:03 22:07 WBC RBC Hgb Hct MCHC RDW Plt Count Neutrophils # Lymphocytes # ABG pH ABG pCO2 ABG pO2 ABG HCO3 ABG Total CO2 ABG O2 Saturation ABG Hematocrit ABG Lactic Acid VBG pH VBG pCO2 VBG HCO3 Sodium Potassium Chloride Carbon Dioxide BUN Creatinine Glucose POC Glucose (mg/dL) 243 H 236 H 230 H Hemoglobin A1c Plasma Lactic Acid Mario Calcium Phosphorus Magnesium Total Bilirubin AST Alkaline Phosphatase Total Creatine Kinase CK-MB (CK-2) Troponin I Total Protein Albumin Triglycerides Urine Protein Urine Glucose (UA) Urine Blood Ur Leukocyte Esterase Urine RBC Urine WBC Amorphous Sediment Urine Bacteria Hyaline Casts Urine Mucus Crossmatch 03/24/17 03/25/17 03/25/17 22:51 00:03 00:54 WBC RBC Hgb Hct MCHC RDW Plt Count Neutrophils # Lymphocytes # ABG pH ABG pCO2 ABG pO2 ABG HCO3 ABG Total CO2 ABG O2 Saturation ABG Hematocrit ABG Lactic Acid VBG pH VBG pCO2 VBG HCO3 Sodium Potassium Chloride Carbon Dioxide BUN Creatinine Glucose POC Glucose (mg/dL) 226 H 233 H 209 H Hemoglobin A1c Plasma Lactic Acid Mario Calcium Phosphorus Magnesium Total Bilirubin AST Alkaline Phosphatase Total Creatine Kinase CK-MB (CK-2) Troponin I Total Protein Albumin Triglycerides Urine Protein Urine Glucose (UA) Urine Blood Ur Leukocyte Esterase Urine RBC Urine WBC Amorphous Sediment Urine Bacteria Hyaline Casts Urine Mucus Crossmatch 03/25/17 03/25/17 03/25/17 01:54 03:00 03:52 WBC RBC Hgb Hct MCHC RDW Plt Count Neutrophils # Lymphocytes # ABG pH ABG pCO2 ABG pO2 ABG HCO3 ABG Total CO2 ABG O2 Saturation ABG Hematocrit ABG Lactic Acid VBG pH VBG pCO2 VBG HCO3 Sodium Potassium Chloride Carbon Dioxide BUN Creatinine Glucose POC Glucose (mg/dL) 206 H 197 H 166 H Hemoglobin A1c Plasma Lactic Acid Mario Calcium Phosphorus Magnesium Total Bilirubin AST Alkaline Phosphatase Total Creatine Kinase CK-MB (CK-2) Troponin I Total Protein Albumin Triglycerides Urine Protein Urine Glucose (UA) Urine Blood Ur Leukocyte Esterase Urine RBC Urine WBC Amorphous Sediment Urine Bacteria Hyaline Casts Urine Mucus Crossmatch 03/25/17 03/25/17 03/25/17 05:13 05:46 05:46 WBC 15.8 H RBC 2.89 L Hgb 8.3 L Hct 26.3 L MCHC RDW 16.0 H Plt Count Neutrophils # 12.7 H Lymphocytes # ABG pH ABG pCO2 ABG pO2 ABG HCO3 ABG Total CO2 ABG O2 Saturation ABG Hematocrit ABG Lactic Acid VBG pH VBG pCO2 VBG HCO3 Sodium Potassium Chloride 113 H Carbon Dioxide 19 L BUN 115 H* Creatinine 3.50 H Glucose 138 H POC Glucose (mg/dL) 138 H Hemoglobin A1c Plasma Lactic Acid Mario Calcium 8.1 L Phosphorus Magnesium Total Bilirubin AST Alkaline Phosphatase Total Creatine Kinase CK-MB (CK-2) Troponin I Total Protein Albumin 1.9 L Triglycerides Urine Protein Urine Glucose (UA) Urine Blood Ur Leukocyte Esterase Urine RBC Urine WBC Amorphous Sediment Urine Bacteria Hyaline Casts Urine Mucus Crossmatch 03/25/17 03/25/17 03/25/17 05:54 07:01 08:14 WBC RBC Hgb Hct MCHC RDW Plt Count Neutrophils # Lymphocytes # ABG pH ABG pCO2 ABG pO2 ABG HCO3 ABG Total CO2 ABG O2 Saturation ABG Hematocrit ABG Lactic Acid VBG pH VBG pCO2 VBG HCO3 Sodium Potassium Chloride Carbon Dioxide BUN Creatinine Glucose POC Glucose (mg/dL) 145 H 129 H 126 H Hemoglobin A1c Plasma Lactic Acid Mario Calcium Phosphorus Magnesium Total Bilirubin AST Alkaline Phosphatase Total Creatine Kinase CK-MB (CK-2) Troponin I Total Protein Albumin Triglycerides Urine Protein Urine Glucose (UA) Urine Blood Ur Leukocyte Esterase Urine RBC Urine WBC Amorphous Sediment Urine Bacteria Hyaline Casts Urine Mucus Crossmatch 03/25/17 03/25/17 03/25/17 09:02 09:58 11:20 WBC RBC Hgb Hct MCHC RDW Plt Count Neutrophils # Lymphocytes # ABG pH ABG pCO2 ABG pO2 ABG HCO3 ABG Total CO2 ABG O2 Saturation ABG Hematocrit ABG Lactic Acid VBG pH VBG pCO2 VBG HCO3 Sodium Potassium Chloride Carbon Dioxide BUN Creatinine Glucose POC Glucose (mg/dL) 129 H 151 H 162 H Hemoglobin A1c Plasma Lactic Acid Mario Calcium Phosphorus Magnesium Total Bilirubin AST Alkaline Phosphatase Total Creatine Kinase CK-MB (CK-2) Troponin I Total Protein Albumin Triglycerides Urine Protein Urine Glucose (UA) Urine Blood Ur Leukocyte Esterase Urine RBC Urine WBC Amorphous Sediment Urine Bacteria Hyaline Casts Urine Mucus Crossmatch 03/25/17 03/25/17 03/25/17 12:30 13:29 14:11 WBC RBC Hgb Hct MCHC RDW Plt Count Neutrophils # Lymphocytes # ABG pH ABG pCO2 ABG pO2 ABG HCO3 ABG Total CO2 ABG O2 Saturation ABG Hematocrit ABG Lactic Acid VBG pH VBG pCO2 VBG HCO3 Sodium Potassium Chloride Carbon Dioxide BUN Creatinine Glucose POC Glucose (mg/dL) 184 H 146 H 144 H Hemoglobin A1c Plasma Lactic Acid Mario Calcium Phosphorus Magnesium Total Bilirubin AST Alkaline Phosphatase Total Creatine Kinase CK-MB (CK-2) Troponin I Total Protein Albumin Triglycerides Urine Protein Urine Glucose (UA) Urine Blood Ur Leukocyte Esterase Urine RBC Urine WBC Amorphous Sediment Urine Bacteria Hyaline Casts Urine Mucus Crossmatch 03/25/17 03/25/17 03/25/17 14:54 16:09 16:52 WBC RBC Hgb Hct MCHC RDW Plt Count Neutrophils # Lymphocytes # ABG pH ABG pCO2 ABG pO2 ABG HCO3 ABG Total CO2 ABG O2 Saturation ABG Hematocrit ABG Lactic Acid VBG pH VBG pCO2 VBG HCO3 Sodium Potassium Chloride Carbon Dioxide BUN Creatinine Glucose POC Glucose (mg/dL) 134 H 150 H 150 H Hemoglobin A1c Plasma Lactic Acid Mario Calcium Phosphorus Magnesium Total Bilirubin AST Alkaline Phosphatase Total Creatine Kinase CK-MB (CK-2) Troponin I Total Protein Albumin Triglycerides Urine Protein Urine Glucose (UA) Urine Blood Ur Leukocyte Esterase Urine RBC Urine WBC Amorphous Sediment Urine Bacteria Hyaline Casts Urine Mucus Crossmatch 03/25/17 03/25/17 03/25/17 17:51 18:22 19:09 WBC RBC Hgb Hct MCHC RDW Plt Count Neutrophils # Lymphocytes # ABG pH ABG pCO2 ABG pO2 ABG HCO3 ABG Total CO2 ABG O2 Saturation ABG Hematocrit ABG Lactic Acid VBG pH VBG pCO2 VBG HCO3 Sodium Potassium Chloride Carbon Dioxide BUN Creatinine Glucose POC Glucose (mg/dL) 165 H 168 H 165 H Hemoglobin A1c Plasma Lactic Acid Mario Calcium Phosphorus Magnesium Total Bilirubin AST Alkaline Phosphatase Total Creatine Kinase CK-MB (CK-2) Troponin I Total Protein Albumin Triglycerides Urine Protein Urine Glucose (UA) Urine Blood Ur Leukocyte Esterase Urine RBC Urine WBC Amorphous Sediment Urine Bacteria Hyaline Casts Urine Mucus Crossmatch 03/25/17 03/25/17 03/25/17 19:57 20:53 21:57 WBC RBC Hgb Hct MCHC RDW Plt Count Neutrophils # Lymphocytes # ABG pH ABG pCO2 ABG pO2 ABG HCO3 ABG Total CO2 ABG O2 Saturation ABG Hematocrit ABG Lactic Acid VBG pH VBG pCO2 VBG HCO3 Sodium Potassium Chloride Carbon Dioxide BUN Creatinine Glucose POC Glucose (mg/dL) 149 H 132 H 114 H Hemoglobin A1c Plasma Lactic Acid Mario Calcium Phosphorus Magnesium Total Bilirubin AST Alkaline Phosphatase Total Creatine Kinase CK-MB (CK-2) Troponin I Total Protein Albumin Triglycerides Urine Protein Urine Glucose (UA) Urine Blood Ur Leukocyte Esterase Urine RBC Urine WBC Amorphous Sediment Urine Bacteria Hyaline Casts Urine Mucus Crossmatch 03/25/17 03/25/17 03/26/17 23:00 23:58 01:07 WBC RBC Hgb Hct MCHC RDW Plt Count Neutrophils # Lymphocytes # ABG pH ABG pCO2 ABG pO2 ABG HCO3 ABG Total CO2 ABG O2 Saturation ABG Hematocrit ABG Lactic Acid VBG pH VBG pCO2 VBG HCO3 Sodium Potassium Chloride Carbon Dioxide BUN Creatinine Glucose POC Glucose (mg/dL) 144 H 158 H 142 H Hemoglobin A1c Plasma Lactic Acid Mario Calcium Phosphorus Magnesium Total Bilirubin AST Alkaline Phosphatase Total Creatine Kinase CK-MB (CK-2) Troponin I Total Protein Albumin Triglycerides Urine Protein Urine Glucose (UA) Urine Blood Ur Leukocyte Esterase Urine RBC Urine WBC Amorphous Sediment Urine Bacteria Hyaline Casts Urine Mucus Crossmatch 03/26/17 03/26/17 03/26/17 01:57 03:06 04:03 WBC RBC Hgb Hct MCHC RDW Plt Count Neutrophils # Lymphocytes # ABG pH ABG pCO2 ABG pO2 ABG HCO3 ABG Total CO2 ABG O2 Saturation ABG Hematocrit ABG Lactic Acid VBG pH VBG pCO2 VBG HCO3 Sodium Potassium Chloride Carbon Dioxide BUN Creatinine Glucose POC Glucose (mg/dL) 137 H 127 H 197 H Hemoglobin A1c Plasma Lactic Acid Mario Calcium Phosphorus Magnesium Total Bilirubin AST Alkaline Phosphatase Total Creatine Kinase CK-MB (CK-2) Troponin I Total Protein Albumin Triglycerides Urine Protein Urine Glucose (UA) Urine Blood Ur Leukocyte Esterase Urine RBC Urine WBC Amorphous Sediment Urine Bacteria Hyaline Casts Urine Mucus Crossmatch 03/26/17 03/26/17 03/26/17 04:07 04:17 04:17 WBC 18.0 H RBC 2.79 L Hgb 8.1 L Hct 25.5 L MCHC RDW 16.8 H Plt Count Neutrophils # 14.4 H Lymphocytes # ABG pH ABG pCO2 ABG pO2 ABG HCO3 ABG Total CO2 ABG O2 Saturation ABG Hematocrit ABG Lactic Acid VBG pH VBG pCO2 VBG HCO3 Sodium Potassium Chloride 110 H Carbon Dioxide 20 L BUN 114 H* Creatinine 3.60 H Glucose 176 H POC Glucose (mg/dL) 190 H Hemoglobin A1c Plasma Lactic Acid Mario Calcium 8.0 L Phosphorus 4.7 H Magnesium Total Bilirubin AST Alkaline Phosphatase Total Creatine Kinase CK-MB (CK-2) Troponin I Total Protein Albumin 2.0 L Triglycerides Urine Protein Urine Glucose (UA) Urine Blood Ur Leukocyte Esterase Urine RBC Urine WBC Amorphous Sediment Urine Bacteria Hyaline Casts Urine Mucus Crossmatch 03/26/17 03/26/17 03/26/17 05:07 06:07 06:54 WBC RBC Hgb Hct MCHC RDW Plt Count Neutrophils # Lymphocytes # ABG pH ABG pCO2 ABG pO2 ABG HCO3 ABG Total CO2 ABG O2 Saturation ABG Hematocrit ABG Lactic Acid VBG pH VBG pCO2 VBG HCO3 Sodium Potassium Chloride Carbon Dioxide BUN Creatinine Glucose POC Glucose (mg/dL) 191 H 171 H 135 H Hemoglobin A1c Plasma Lactic Acid Mario Calcium Phosphorus Magnesium Total Bilirubin AST Alkaline Phosphatase Total Creatine Kinase CK-MB (CK-2) Troponin I Total Protein Albumin Triglycerides Urine Protein Urine Glucose (UA) Urine Blood Ur Leukocyte Esterase Urine RBC Urine WBC Amorphous Sediment Urine Bacteria Hyaline Casts Urine Mucus Crossmatch 03/26/17 03/26/17 03/26/17 07:56 08:58 09:59 WBC RBC Hgb Hct MCHC RDW Plt Count Neutrophils # Lymphocytes # ABG pH ABG pCO2 ABG pO2 ABG HCO3 ABG Total CO2 ABG O2 Saturation ABG Hematocrit ABG Lactic Acid VBG pH VBG pCO2 VBG HCO3 Sodium Potassium Chloride Carbon Dioxide BUN Creatinine Glucose POC Glucose (mg/dL) 118 H 115 H 149 H Hemoglobin A1c Plasma Lactic Acid Mario Calcium Phosphorus Magnesium Total Bilirubin AST Alkaline Phosphatase Total Creatine Kinase CK-MB (CK-2) Troponin I Total Protein Albumin Triglycerides Urine Protein Urine Glucose (UA) Urine Blood Ur Leukocyte Esterase Urine RBC Urine WBC Amorphous Sediment Urine Bacteria Hyaline Casts Urine Mucus Crossmatch 03/26/17 03/26/17 03/26/17 11:02 15:59 17:05 WBC RBC Hgb Hct MCHC RDW Plt Count Neutrophils # Lymphocytes # ABG pH ABG pCO2 ABG pO2 ABG HCO3 ABG Total CO2 ABG O2 Saturation ABG Hematocrit ABG Lactic Acid VBG pH VBG pCO2 VBG HCO3 Sodium Potassium Chloride Carbon Dioxide BUN Creatinine Glucose POC Glucose (mg/dL) 140 H 123 H 171 H Hemoglobin A1c Plasma Lactic Acid Mario Calcium Phosphorus Magnesium Total Bilirubin AST Alkaline Phosphatase Total Creatine Kinase CK-MB (CK-2) Troponin I Total Protein Albumin Triglycerides Urine Protein Urine Glucose (UA) Urine Blood Ur Leukocyte Esterase Urine RBC Urine WBC Amorphous Sediment Urine Bacteria Hyaline Casts Urine Mucus Crossmatch 03/26/17 03/26/17 03/26/17 18:00 19:14 19:41 WBC RBC Hgb Hct MCHC RDW Plt Count Neutrophils # Lymphocytes # ABG pH ABG pCO2 ABG pO2 ABG HCO3 ABG Total CO2 ABG O2 Saturation ABG Hematocrit ABG Lactic Acid VBG pH VBG pCO2 VBG HCO3 Sodium Potassium Chloride Carbon Dioxide BUN Creatinine Glucose POC Glucose (mg/dL) 221 H 216 H 225 H Hemoglobin A1c Plasma Lactic Acid Mario Calcium Phosphorus Magnesium Total Bilirubin AST Alkaline Phosphatase Total Creatine Kinase CK-MB (CK-2) Troponin I Total Protein Albumin Triglycerides Urine Protein Urine Glucose (UA) Urine Blood Ur Leukocyte Esterase Urine RBC Urine WBC Amorphous Sediment Urine Bacteria Hyaline Casts Urine Mucus Crossmatch 03/26/17 03/26/17 03/26/17 20:05 21:03 22:00 WBC RBC Hgb Hct MCHC RDW Plt Count Neutrophils # Lymphocytes # ABG pH ABG pCO2 ABG pO2 ABG HCO3 ABG Total CO2 ABG O2 Saturation ABG Hematocrit ABG Lactic Acid VBG pH VBG pCO2 VBG HCO3 Sodium Potassium Chloride Carbon Dioxide BUN Creatinine Glucose POC Glucose (mg/dL) 220 H 180 H 181 H Hemoglobin A1c Plasma Lactic Acid Mario Calcium Phosphorus Magnesium Total Bilirubin AST Alkaline Phosphatase Total Creatine Kinase CK-MB (CK-2) Troponin I Total Protein Albumin Triglycerides Urine Protein Urine Glucose (UA) Urine Blood Ur Leukocyte Esterase Urine RBC Urine WBC Amorphous Sediment Urine Bacteria Hyaline Casts Urine Mucus Crossmatch 03/26/17 03/27/17 03/27/17 23:00 00:01 01:03 WBC RBC Hgb Hct MCHC RDW Plt Count Neutrophils # Lymphocytes # ABG pH ABG pCO2 ABG pO2 ABG HCO3 ABG Total CO2 ABG O2 Saturation ABG Hematocrit ABG Lactic Acid VBG pH VBG pCO2 VBG HCO3 Sodium Potassium Chloride Carbon Dioxide BUN Creatinine Glucose POC Glucose (mg/dL) 147 H 139 H 135 H Hemoglobin A1c Plasma Lactic Acid Mario Calcium Phosphorus Magnesium Total Bilirubin AST Alkaline Phosphatase Total Creatine Kinase CK-MB (CK-2) Troponin I Total Protein Albumin Triglycerides Urine Protein Urine Glucose (UA) Urine Blood Ur Leukocyte Esterase Urine RBC Urine WBC Amorphous Sediment Urine Bacteria Hyaline Casts Urine Mucus Crossmatch 03/27/17 03/27/17 03/27/17 03:02 03:06 03:39 WBC RBC Hgb Hct MCHC RDW Plt Count Neutrophils # Lymphocytes # ABG pH ABG pCO2 ABG pO2 ABG HCO3 ABG Total CO2 ABG O2 Saturation ABG Hematocrit ABG Lactic Acid VBG pH VBG pCO2 VBG HCO3 Sodium Potassium Chloride 111 H Carbon Dioxide 20 L BUN 113 H* Creatinine 3.50 H Glucose 143 H POC Glucose (mg/dL) 66 L 64 L Hemoglobin A1c Plasma Lactic Acid Mario Calcium 7.7 L Phosphorus 4.7 H Magnesium Total Bilirubin AST Alkaline Phosphatase Total Creatine Kinase CK-MB (CK-2) Troponin I Total Protein Albumin 1.9 L Triglycerides Urine Protein Urine Glucose (UA) Urine Blood Ur Leukocyte Esterase Urine RBC Urine WBC Amorphous Sediment Urine Bacteria Hyaline Casts Urine Mucus Crossmatch 03/27/17 03/27/17 03/27/17 03:39 03:39 03:41 WBC 15.5 H RBC 2.56 L Hgb 7.3 L Hct 23.6 L MCHC RDW 16.4 H Plt Count Neutrophils # 12.7 H Lymphocytes # ABG pH ABG pCO2 ABG pO2 ABG HCO3 ABG Total CO2 ABG O2 Saturation ABG Hematocrit ABG Lactic Acid VBG pH VBG pCO2 VBG HCO3 Sodium Potassium Chloride Carbon Dioxide BUN Creatinine Glucose POC Glucose (mg/dL) >600 H >600 H Hemoglobin A1c Plasma Lactic Acid Mario Calcium Phosphorus Magnesium Total Bilirubin AST Alkaline Phosphatase Total Creatine Kinase CK-MB (CK-2) Troponin I Total Protein Albumin Triglycerides Urine Protein Urine Glucose (UA) Urine Blood Ur Leukocyte Esterase Urine RBC Urine WBC Amorphous Sediment Urine Bacteria Hyaline Casts Urine Mucus Crossmatch 03/27/17 03/27/17 03/27/17 03:46 04:16 05:14 WBC RBC Hgb Hct MCHC RDW Plt Count Neutrophils # Lymphocytes # ABG pH ABG pCO2 ABG pO2 ABG HCO3 ABG Total CO2 ABG O2 Saturation ABG Hematocrit ABG Lactic Acid VBG pH VBG pCO2 VBG HCO3 Sodium Potassium Chloride Carbon Dioxide BUN Creatinine Glucose POC Glucose (mg/dL) 153 H 157 H 184 H Hemoglobin A1c Plasma Lactic Acid Mario Calcium Phosphorus Magnesium Total Bilirubin AST Alkaline Phosphatase Total Creatine Kinase CK-MB (CK-2) Troponin I Total Protein Albumin Triglycerides Urine Protein Urine Glucose (UA) Urine Blood Ur Leukocyte Esterase Urine RBC Urine WBC Amorphous Sediment Urine Bacteria Hyaline Casts Urine Mucus Crossmatch 03/27/17 03/27/17 03/27/17 06:09 07:05 08:01 WBC RBC Hgb Hct MCHC RDW Plt Count Neutrophils # Lymphocytes # ABG pH ABG pCO2 ABG pO2 ABG HCO3 ABG Total CO2 ABG O2 Saturation ABG Hematocrit ABG Lactic Acid VBG pH VBG pCO2 VBG HCO3 Sodium Potassium Chloride Carbon Dioxide BUN Creatinine Glucose POC Glucose (mg/dL) 144 H 141 H 117 H Hemoglobin A1c Plasma Lactic Acid Mario Calcium Phosphorus Magnesium Total Bilirubin AST Alkaline Phosphatase Total Creatine Kinase CK-MB (CK-2) Troponin I Total Protein Albumin Triglycerides Urine Protein Urine Glucose (UA) Urine Blood Ur Leukocyte Esterase Urine RBC Urine WBC Amorphous Sediment Urine Bacteria Hyaline Casts Urine Mucus Crossmatch 03/27/17 03/27/17 03/27/17 12:03 16:20 16:24 WBC RBC Hgb Hct MCHC RDW Plt Count Neutrophils # Lymphocytes # ABG pH ABG pCO2 ABG pO2 ABG HCO3 ABG Total CO2 ABG O2 Saturation ABG Hematocrit ABG Lactic Acid VBG pH VBG pCO2 VBG HCO3 Sodium Potassium Chloride Carbon Dioxide BUN Creatinine Glucose POC Glucose (mg/dL) 133 H 262 H 260 H Hemoglobin A1c Plasma Lactic Acid Mario Calcium Phosphorus Magnesium Total Bilirubin AST Alkaline Phosphatase Total Creatine Kinase CK-MB (CK-2) Troponin I Total Protein Albumin Triglycerides Urine Protein Urine Glucose (UA) Urine Blood Ur Leukocyte Esterase Urine RBC Urine WBC Amorphous Sediment Urine Bacteria Hyaline Casts Urine Mucus Crossmatch 03/27/17 03/28/17 03/28/17 20:04 00:01 01:05 WBC RBC Hgb Hct MCHC RDW Plt Count Neutrophils # Lymphocytes # ABG pH ABG pCO2 ABG pO2 ABG HCO3 ABG Total CO2 ABG O2 Saturation ABG Hematocrit ABG Lactic Acid VBG pH VBG pCO2 VBG HCO3 Sodium Potassium Chloride Carbon Dioxide BUN Creatinine Glucose POC Glucose (mg/dL) 278 H 328 H 352 H Hemoglobin A1c Plasma Lactic Acid Mario Calcium Phosphorus Magnesium Total Bilirubin AST Alkaline Phosphatase Total Creatine Kinase CK-MB (CK-2) Troponin I Total Protein Albumin Triglycerides Urine Protein Urine Glucose (UA) Urine Blood Ur Leukocyte Esterase Urine RBC Urine WBC Amorphous Sediment Urine Bacteria Hyaline Casts Urine Mucus Crossmatch 03/28/17 03/28/17 03/28/17 01:33 02:11 03:02 WBC RBC Hgb Hct MCHC RDW Plt Count Neutrophils # Lymphocytes # ABG pH ABG pCO2 ABG pO2 ABG HCO3 ABG Total CO2 ABG O2 Saturation ABG Hematocrit ABG Lactic Acid VBG pH VBG pCO2 VBG HCO3 Sodium Potassium Chloride Carbon Dioxide BUN Creatinine Glucose POC Glucose (mg/dL) 277 H 243 H 198 H Hemoglobin A1c Plasma Lactic Acid Mario Calcium Phosphorus Magnesium Total Bilirubin AST Alkaline Phosphatase Total Creatine Kinase CK-MB (CK-2) Troponin I Total Protein Albumin Triglycerides Urine Protein Urine Glucose (UA) Urine Blood Ur Leukocyte Esterase Urine RBC Urine WBC Amorphous Sediment Urine Bacteria Hyaline Casts Urine Mucus Crossmatch 03/28/17 03/28/17 03/28/17 04:05 04:45 04:45 WBC 13.7 H RBC 2.43 L Hgb 7.0 L* Hct 22.4 L MCHC RDW 15.7 H Plt Count Neutrophils # 11.1 H Lymphocytes # ABG pH ABG pCO2 ABG pO2 ABG HCO3 ABG Total CO2 ABG O2 Saturation ABG Hematocrit ABG Lactic Acid VBG pH VBG pCO2 VBG HCO3 Sodium Potassium Chloride 111 H Carbon Dioxide 21 L BUN 108 H* Creatinine 3.50 H Glucose 151 H POC Glucose (mg/dL) 172 H Hemoglobin A1c Plasma Lactic Acid Mario Calcium 7.8 L Phosphorus Magnesium Total Bilirubin AST Alkaline Phosphatase Total Creatine Kinase CK-MB (CK-2) Troponin I Total Protein Albumin Triglycerides Urine Protein Urine Glucose (UA) Urine Blood Ur Leukocyte Esterase Urine RBC Urine WBC Amorphous Sediment Urine Bacteria Hyaline Casts Urine Mucus Crossmatch 03/28/17 03/28/17 03/28/17 05:05 06:01 07:04 WBC RBC Hgb Hct MCHC RDW Plt Count Neutrophils # Lymphocytes # ABG pH ABG pCO2 ABG pO2 ABG HCO3 ABG Total CO2 ABG O2 Saturation ABG Hematocrit ABG Lactic Acid VBG pH VBG pCO2 VBG HCO3 Sodium Potassium Chloride Carbon Dioxide BUN Creatinine Glucose POC Glucose (mg/dL) 142 H 118 H 107 H Hemoglobin A1c Plasma Lactic Acid Mario Calcium Phosphorus Magnesium Total Bilirubin AST Alkaline Phosphatase Total Creatine Kinase CK-MB (CK-2) Troponin I Total Protein Albumin Triglycerides Urine Protein Urine Glucose (UA) Urine Blood Ur Leukocyte Esterase Urine RBC Urine WBC Amorphous Sediment Urine Bacteria Hyaline Casts Urine Mucus Crossmatch 03/28/17 03/28/17 03/28/17 07:48 09:22 10:16 WBC RBC Hgb Hct MCHC RDW Plt Count Neutrophils # Lymphocytes # ABG pH ABG pCO2 ABG pO2 ABG HCO3 ABG Total CO2 ABG O2 Saturation ABG Hematocrit ABG Lactic Acid VBG pH VBG pCO2 VBG HCO3 Sodium Potassium Chloride Carbon Dioxide BUN Creatinine Glucose POC Glucose (mg/dL) 115 H 154 H 204 H Hemoglobin A1c Plasma Lactic Acid Mario Calcium Phosphorus Magnesium Total Bilirubin AST Alkaline Phosphatase Total Creatine Kinase CK-MB (CK-2) Troponin I Total Protein Albumin Triglycerides Urine Protein Urine Glucose (UA) Urine Blood Ur Leukocyte Esterase Urine RBC Urine WBC Amorphous Sediment Urine Bacteria Hyaline Casts Urine Mucus Crossmatch 03/28/17 03/28/17 03/28/17 10:58 11:17 12:20 WBC RBC Hgb Hct MCHC RDW Plt Count Neutrophils # Lymphocytes # ABG pH ABG pCO2 ABG pO2 ABG HCO3 ABG Total CO2 ABG O2 Saturation ABG Hematocrit ABG Lactic Acid VBG pH VBG pCO2 VBG HCO3 Sodium Potassium Chloride Carbon Dioxide BUN Creatinine Glucose POC Glucose (mg/dL) 223 H 224 H Hemoglobin A1c Plasma Lactic Acid Mario Calcium Phosphorus Magnesium Total Bilirubin AST Alkaline Phosphatase Total Creatine Kinase CK-MB (CK-2) Troponin I Total Protein Albumin Triglycerides Urine Protein Urine Glucose (UA) Urine Blood Ur Leukocyte Esterase Urine RBC Urine WBC Amorphous Sediment Urine Bacteria Hyaline Casts Urine Mucus Crossmatch See Detail 03/28/17 03/28/17 03/28/17 13:14 14:00 15:29 WBC RBC Hgb Hct MCHC RDW Plt Count Neutrophils # Lymphocytes # ABG pH ABG pCO2 ABG pO2 ABG HCO3 ABG Total CO2 ABG O2 Saturation ABG Hematocrit ABG Lactic Acid VBG pH VBG pCO2 VBG HCO3 Sodium Potassium Chloride Carbon Dioxide BUN Creatinine Glucose POC Glucose (mg/dL) 216 H 223 H 151 H Hemoglobin A1c Plasma Lactic Acid Mario Calcium Phosphorus Magnesium Total Bilirubin AST Alkaline Phosphatase Total Creatine Kinase CK-MB (CK-2) Troponin I Total Protein Albumin Triglycerides Urine Protein Urine Glucose (UA) Urine Blood Ur Leukocyte Esterase Urine RBC Urine WBC Amorphous Sediment Urine Bacteria Hyaline Casts Urine Mucus Crossmatch 03/28/17 03/28/17 03/28/17 16:13 17:21 18:39 WBC RBC Hgb Hct MCHC RDW Plt Count Neutrophils # Lymphocytes # ABG pH ABG pCO2 ABG pO2 ABG HCO3 ABG Total CO2 ABG O2 Saturation ABG Hematocrit ABG Lactic Acid VBG pH VBG pCO2 VBG HCO3 Sodium Potassium Chloride Carbon Dioxide BUN Creatinine Glucose POC Glucose (mg/dL) 134 H 126 H 195 H Hemoglobin A1c Plasma Lactic Acid Mario Calcium Phosphorus Magnesium Total Bilirubin AST Alkaline Phosphatase Total Creatine Kinase CK-MB (CK-2) Troponin I Total Protein Albumin Triglycerides Urine Protein Urine Glucose (UA) Urine Blood Ur Leukocyte Esterase Urine RBC Urine WBC Amorphous Sediment Urine Bacteria Hyaline Casts Urine Mucus Crossmatch 03/28/17 03/28/17 03/28/17 20:04 21:06 22:07 WBC RBC Hgb Hct MCHC RDW Plt Count Neutrophils # Lymphocytes # ABG pH ABG pCO2 ABG pO2 ABG HCO3 ABG Total CO2 ABG O2 Saturation ABG Hematocrit ABG Lactic Acid VBG pH VBG pCO2 VBG HCO3 Sodium Potassium Chloride Carbon Dioxide BUN Creatinine Glucose POC Glucose (mg/dL) 187 H 220 H 167 H Hemoglobin A1c Plasma Lactic Acid Mario Calcium Phosphorus Magnesium Total Bilirubin AST Alkaline Phosphatase Total Creatine Kinase CK-MB (CK-2) Troponin I Total Protein Albumin Triglycerides Urine Protein Urine Glucose (UA) Urine Blood Ur Leukocyte Esterase Urine RBC Urine WBC Amorphous Sediment Urine Bacteria Hyaline Casts Urine Mucus Crossmatch 03/28/17 03/29/17 03/29/17 23:05 00:47 01:55 WBC RBC Hgb Hct MCHC RDW Plt Count Neutrophils # Lymphocytes # ABG pH ABG pCO2 ABG pO2 ABG HCO3 ABG Total CO2 ABG O2 Saturation ABG Hematocrit ABG Lactic Acid VBG pH VBG pCO2 VBG HCO3 Sodium Potassium Chloride Carbon Dioxide BUN Creatinine Glucose POC Glucose (mg/dL) 106 H 100 H 143 H Hemoglobin A1c Plasma Lactic Acid Mario Calcium Phosphorus Magnesium Total Bilirubin AST Alkaline Phosphatase Total Creatine Kinase CK-MB (CK-2) Troponin I Total Protein Albumin Triglycerides Urine Protein Urine Glucose (UA) Urine Blood Ur Leukocyte Esterase Urine RBC Urine WBC Amorphous Sediment Urine Bacteria Hyaline Casts Urine Mucus Crossmatch 03/29/17 03/29/17 03/29/17 02:59 04:02 04:25 WBC 14.5 H RBC 2.57 L Hgb 7.5 L Hct 24.4 L MCHC 30.9 L RDW 16.0 H Plt Count Neutrophils # 11.6 H Lymphocytes # ABG pH ABG pCO2 ABG pO2 ABG HCO3 ABG Total CO2 ABG O2 Saturation ABG Hematocrit ABG Lactic Acid VBG pH VBG pCO2 VBG HCO3 Sodium Potassium Chloride Carbon Dioxide BUN Creatinine Glucose POC Glucose (mg/dL) 162 H 162 H Hemoglobin A1c Plasma Lactic Acid Mario Calcium Phosphorus Magnesium Total Bilirubin AST Alkaline Phosphatase Total Creatine Kinase CK-MB (CK-2) Troponin I Total Protein Albumin Triglycerides Urine Protein Urine Glucose (UA) Urine Blood Ur Leukocyte Esterase Urine RBC Urine WBC Amorphous Sediment Urine Bacteria Hyaline Casts Urine Mucus Crossmatch 03/29/17 03/29/17 03/29/17 04:52 05:27 05:27 WBC 16.3 H RBC 2.87 L Hgb 8.2 L Hct 26.0 L MCHC RDW Plt Count 456 H Neutrophils # 12.9 H Lymphocytes # ABG pH ABG pCO2 ABG pO2 ABG HCO3 ABG Total CO2 ABG O2 Saturation ABG Hematocrit ABG Lactic Acid VBG pH VBG pCO2 VBG HCO3 Sodium Potassium Chloride 113 H Carbon Dioxide 19 L BUN 111 H* Creatinine 3.58 H Glucose POC Glucose (mg/dL) 109 H Hemoglobin A1c Plasma Lactic Acid Mario Calcium 7.9 L Phosphorus Magnesium Total Bilirubin AST Alkaline Phosphatase Total Creatine Kinase CK-MB (CK-2) Troponin I Total Protein Albumin Triglycerides Urine Protein Urine Glucose (UA) Urine Blood Ur Leukocyte Esterase Urine RBC Urine WBC Amorphous Sediment Urine Bacteria Hyaline Casts Urine Mucus Crossmatch 03/29/17 03/29/17 03/29/17 06:03 06:50 08:08 WBC RBC Hgb Hct MCHC RDW Plt Count Neutrophils # Lymphocytes # ABG pH ABG pCO2 ABG pO2 ABG HCO3 ABG Total CO2 ABG O2 Saturation ABG Hematocrit ABG Lactic Acid VBG pH VBG pCO2 VBG HCO3 Sodium Potassium Chloride Carbon Dioxide BUN Creatinine Glucose POC Glucose (mg/dL) 103 H 123 H 137 H Hemoglobin A1c Plasma Lactic Acid Mario Calcium Phosphorus Magnesium Total Bilirubin AST Alkaline Phosphatase Total Creatine Kinase CK-MB (CK-2) Troponin I Total Protein Albumin Triglycerides Urine Protein Urine Glucose (UA) Urine Blood Ur Leukocyte Esterase Urine RBC Urine WBC Amorphous Sediment Urine Bacteria Hyaline Casts Urine Mucus Crossmatch 03/29/17 03/29/17 03/29/17 09:56 10:49 11:37 WBC RBC Hgb Hct MCHC RDW Plt Count Neutrophils # Lymphocytes # ABG pH ABG pCO2 ABG pO2 ABG HCO3 ABG Total CO2 ABG O2 Saturation ABG Hematocrit ABG Lactic Acid VBG pH VBG pCO2 VBG HCO3 Sodium Potassium Chloride Carbon Dioxide BUN Creatinine Glucose POC Glucose (mg/dL) 169 H 173 H 159 H Hemoglobin A1c Plasma Lactic Acid Mario Calcium Phosphorus Magnesium Total Bilirubin AST Alkaline Phosphatase Total Creatine Kinase CK-MB (CK-2) Troponin I Total Protein Albumin Triglycerides Urine Protein Urine Glucose (UA) Urine Blood Ur Leukocyte Esterase Urine RBC Urine WBC Amorphous Sediment Urine Bacteria Hyaline Casts Urine Mucus Crossmatch 03/29/17 03/29/17 03/29/17 12:10 13:49 17:08 WBC RBC Hgb Hct MCHC RDW Plt Count Neutrophils # Lymphocytes # ABG pH ABG pCO2 ABG pO2 ABG HCO3 ABG Total CO2 ABG O2 Saturation ABG Hematocrit ABG Lactic Acid VBG pH VBG pCO2 VBG HCO3 Sodium Potassium Chloride Carbon Dioxide BUN Creatinine Glucose POC Glucose (mg/dL) 165 H 195 H 129 H Hemoglobin A1c Plasma Lactic Acid Mario Calcium Phosphorus Magnesium Total Bilirubin AST Alkaline Phosphatase Total Creatine Kinase CK-MB (CK-2) Troponin I Total Protein Albumin Triglycerides Urine Protein Urine Glucose (UA) Urine Blood Ur Leukocyte Esterase Urine RBC Urine WBC Amorphous Sediment Urine Bacteria Hyaline Casts Urine Mucus Crossmatch 03/29/17 03/29/17 03/29/17 18:39 19:58 20:57 WBC RBC Hgb Hct MCHC RDW Plt Count Neutrophils # Lymphocytes # ABG pH ABG pCO2 ABG pO2 ABG HCO3 ABG Total CO2 ABG O2 Saturation ABG Hematocrit ABG Lactic Acid VBG pH VBG pCO2 VBG HCO3 Sodium Potassium Chloride Carbon Dioxide BUN Creatinine Glucose POC Glucose (mg/dL) 184 H 168 H 138 H Hemoglobin A1c Plasma Lactic Acid Mario Calcium Phosphorus Magnesium Total Bilirubin AST Alkaline Phosphatase Total Creatine Kinase CK-MB (CK-2) Troponin I Total Protein Albumin Triglycerides Urine Protein Urine Glucose (UA) Urine Blood Ur Leukocyte Esterase Urine RBC Urine WBC Amorphous Sediment Urine Bacteria Hyaline Casts Urine Mucus Crossmatch 03/29/17 03/29/17 03/30/17 22:01 23:00 00:13 WBC RBC Hgb Hct MCHC RDW Plt Count Neutrophils # Lymphocytes # ABG pH ABG pCO2 ABG pO2 ABG HCO3 ABG Total CO2 ABG O2 Saturation ABG Hematocrit ABG Lactic Acid VBG pH VBG pCO2 VBG HCO3 Sodium Potassium Chloride Carbon Dioxide BUN Creatinine Glucose POC Glucose (mg/dL) 126 H 143 H 146 H Hemoglobin A1c Plasma Lactic Acid Mario Calcium Phosphorus Magnesium Total Bilirubin AST Alkaline Phosphatase Total Creatine Kinase CK-MB (CK-2) Troponin I Total Protein Albumin Triglycerides Urine Protein Urine Glucose (UA) Urine Blood Ur Leukocyte Esterase Urine RBC Urine WBC Amorphous Sediment Urine Bacteria Hyaline Casts Urine Mucus Crossmatch 03/30/17 03/30/17 03/30/17 01:36 02:05 03:02 WBC RBC Hgb Hct MCHC RDW Plt Count Neutrophils # Lymphocytes # ABG pH ABG pCO2 ABG pO2 ABG HCO3 ABG Total CO2 ABG O2 Saturation ABG Hematocrit ABG Lactic Acid VBG pH VBG pCO2 VBG HCO3 Sodium Potassium Chloride Carbon Dioxide BUN Creatinine Glucose POC Glucose (mg/dL) 155 H 160 H 164 H Hemoglobin A1c Plasma Lactic Acid Mario Calcium Phosphorus Magnesium Total Bilirubin AST Alkaline Phosphatase Total Creatine Kinase CK-MB (CK-2) Troponin I Total Protein Albumin Triglycerides Urine Protein Urine Glucose (UA) Urine Blood Ur Leukocyte Esterase Urine RBC Urine WBC Amorphous Sediment Urine Bacteria Hyaline Casts Urine Mucus Crossmatch 03/30/17 03/30/17 03/30/17 04:20 04:27 04:27 WBC 14.2 H RBC 2.73 L Hgb 7.7 L Hct 25.4 L MCHC 30.4 L RDW Plt Count Neutrophils # 11.2 H Lymphocytes # ABG pH ABG pCO2 ABG pO2 ABG HCO3 ABG Total CO2 ABG O2 Saturation ABG Hematocrit ABG Lactic Acid VBG pH VBG pCO2 VBG HCO3 Sodium 146 H Potassium Chloride 114 H Carbon Dioxide 19 L BUN 111 H* Creatinine 3.70 H Glucose 149 H POC Glucose (mg/dL) 157 H Hemoglobin A1c Plasma Lactic Acid Mario Calcium 8.2 L Phosphorus 5.4 H Magnesium Total Bilirubin AST Alkaline Phosphatase Total Creatine Kinase CK-MB (CK-2) Troponin I Total Protein Albumin Triglycerides Urine Protein Urine Glucose (UA) Urine Blood Ur Leukocyte Esterase Urine RBC Urine WBC Amorphous Sediment Urine Bacteria Hyaline Casts Urine Mucus Crossmatch 03/30/17 03/30/17 03/30/17 04:59 07:41 09:15 WBC RBC Hgb Hct MCHC RDW Plt Count Neutrophils # Lymphocytes # ABG pH ABG pCO2 ABG pO2 ABG HCO3 ABG Total CO2 ABG O2 Saturation ABG Hematocrit ABG Lactic Acid VBG pH VBG pCO2 VBG HCO3 Sodium Potassium Chloride Carbon Dioxide BUN Creatinine Glucose POC Glucose (mg/dL) 133 H 107 H 149 H Hemoglobin A1c Plasma Lactic Acid Mario Calcium Phosphorus Magnesium Total Bilirubin AST Alkaline Phosphatase Total Creatine Kinase CK-MB (CK-2) Troponin I Total Protein Albumin Triglycerides Urine Protein Urine Glucose (UA) Urine Blood Ur Leukocyte Esterase Urine RBC Urine WBC Amorphous Sediment Urine Bacteria Hyaline Casts Urine Mucus Crossmatch 03/30/17 03/30/17 03/30/17 10:20 11:47 13:29 WBC RBC Hgb Hct MCHC RDW Plt Count Neutrophils # Lymphocytes # ABG pH ABG pCO2 ABG pO2 ABG HCO3 ABG Total CO2 ABG O2 Saturation ABG Hematocrit ABG Lactic Acid VBG pH VBG pCO2 VBG HCO3 Sodium Potassium Chloride Carbon Dioxide BUN Creatinine Glucose POC Glucose (mg/dL) 215 H 210 H 171 H Hemoglobin A1c Plasma Lactic Acid Mario Calcium Phosphorus Magnesium Total Bilirubin AST Alkaline Phosphatase Total Creatine Kinase CK-MB (CK-2) Troponin I Total Protein Albumin Triglycerides Urine Protein Urine Glucose (UA) Urine Blood Ur Leukocyte Esterase Urine RBC Urine WBC Amorphous Sediment Urine Bacteria Hyaline Casts Urine Mucus Crossmatch 03/30/17 03/30/17 03/30/17 14:44 17:58 18:42 WBC RBC Hgb Hct MCHC RDW Plt Count Neutrophils # Lymphocytes # ABG pH ABG pCO2 ABG pO2 ABG HCO3 ABG Total CO2 ABG O2 Saturation ABG Hematocrit ABG Lactic Acid VBG pH VBG pCO2 VBG HCO3 Sodium Potassium Chloride Carbon Dioxide BUN Creatinine Glucose POC Glucose (mg/dL) 139 H 149 H 188 H Hemoglobin A1c Plasma Lactic Acid Mario Calcium Phosphorus Magnesium Total Bilirubin AST Alkaline Phosphatase Total Creatine Kinase CK-MB (CK-2) Troponin I Total Protein Albumin Triglycerides Urine Protein Urine Glucose (UA) Urine Blood Ur Leukocyte Esterase Urine RBC Urine WBC Amorphous Sediment Urine Bacteria Hyaline Casts Urine Mucus Crossmatch 03/30/17 03/30/17 03/30/17 19:47 21:04 22:01 WBC RBC Hgb Hct MCHC RDW Plt Count Neutrophils # Lymphocytes # ABG pH ABG pCO2 ABG pO2 ABG HCO3 ABG Total CO2 ABG O2 Saturation ABG Hematocrit ABG Lactic Acid VBG pH VBG pCO2 VBG HCO3 Sodium Potassium Chloride Carbon Dioxide BUN Creatinine Glucose POC Glucose (mg/dL) 188 H 210 H 193 H Hemoglobin A1c Plasma Lactic Acid Mario Calcium Phosphorus Magnesium Total Bilirubin AST Alkaline Phosphatase Total Creatine Kinase CK-MB (CK-2) Troponin I Total Protein Albumin Triglycerides Urine Protein Urine Glucose (UA) Urine Blood Ur Leukocyte Esterase Urine RBC Urine WBC Amorphous Sediment Urine Bacteria Hyaline Casts Urine Mucus Crossmatch 03/30/17 03/31/17 03/31/17 22:59 00:17 01:04 WBC RBC Hgb Hct MCHC RDW Plt Count Neutrophils # Lymphocytes # ABG pH ABG pCO2 ABG pO2 ABG HCO3 ABG Total CO2 ABG O2 Saturation ABG Hematocrit ABG Lactic Acid VBG pH VBG pCO2 VBG HCO3 Sodium Potassium Chloride Carbon Dioxide BUN Creatinine Glucose POC Glucose (mg/dL) 179 H 149 H 123 H Hemoglobin A1c Plasma Lactic Acid Mario Calcium Phosphorus Magnesium Total Bilirubin AST Alkaline Phosphatase Total Creatine Kinase CK-MB (CK-2) Troponin I Total Protein Albumin Triglycerides Urine Protein Urine Glucose (UA) Urine Blood Ur Leukocyte Esterase Urine RBC Urine WBC Amorphous Sediment Urine Bacteria Hyaline Casts Urine Mucus Crossmatch 03/31/17 03/31/1717 02:03 03:00 04:09 WBC RBC Hgb Hct MCHC RDW Plt Count Neutrophils # Lymphocytes # ABG pH ABG pCO2 ABG pO2 ABG HCO3 ABG Total CO2 ABG O2 Saturation ABG Hematocrit ABG Lactic Acid VBG pH VBG pCO2 VBG HCO3 Sodium Potassium Chloride Carbon Dioxide BUN Creatinine Glucose POC Glucose (mg/dL) 104 H 111 H 111 H Hemoglobin A1c Plasma Lactic Acid Mario Calcium Phosphorus Magnesium Total Bilirubin AST Alkaline Phosphatase Total Creatine Kinase CK-MB (CK-2) Troponin I Total Protein Albumin Triglycerides Urine Protein Urine Glucose (UA) Urine Blood Ur Leukocyte Esterase Urine RBC Urine WBC Amorphous Sediment Urine Bacteria Hyaline Casts Urine Mucus Crossmatch 03/31/17 03/31/17 03/31/17 04:12 04:12 05:10 WBC 13.2 H RBC 2.67 L Hgb 7.5 L Hct 25.0 L MCHC 30.1 L RDW Plt Count 461 H Neutrophils # 10.3 H Lymphocytes # ABG pH ABG pCO2 ABG pO2 ABG HCO3 ABG Total CO2 ABG O2 Saturation ABG Hematocrit ABG Lactic Acid VBG pH VBG pCO2 VBG HCO3 Sodium 149 H Potassium Chloride 116 H Carbon Dioxide 18 L BUN 105 H* Creatinine 4.00 H Glucose 113 H POC Glucose (mg/dL) 130 H Hemoglobin A1c Plasma Lactic Acid Mario Calcium 7.9 L Phosphorus 5.2 H Magnesium 2.4 H Total Bilirubin AST Alkaline Phosphatase Total Creatine Kinase CK-MB (CK-2) Troponin I Total Protein Albumin Triglycerides Urine Protein Urine Glucose (UA) Urine Blood Ur Leukocyte Esterase Urine RBC Urine WBC Amorphous Sediment Urine Bacteria Hyaline Casts Urine Mucus Crossmatch 03/31/17 03/31/17 03/31/17 06:17 06:59 08:38 WBC RBC Hgb Hct MCHC RDW Plt Count Neutrophils # Lymphocytes # ABG pH ABG pCO2 ABG pO2 ABG HCO3 ABG Total CO2 ABG O2 Saturation ABG Hematocrit ABG Lactic Acid VBG pH VBG pCO2 VBG HCO3 Sodium Potassium Chloride Carbon Dioxide BUN Creatinine Glucose POC Glucose (mg/dL) 150 H 157 H 152 H Hemoglobin A1c Plasma Lactic Acid Mario Calcium Phosphorus Magnesium Total Bilirubin AST Alkaline Phosphatase Total Creatine Kinase CK-MB (CK-2) Troponin I Total Protein Albumin Triglycerides Urine Protein Urine Glucose (UA) Urine Blood Ur Leukocyte Esterase Urine RBC Urine WBC Amorphous Sediment Urine Bacteria Hyaline Casts Urine Mucus Crossmatch 03/31/17 03/31/17 03/31/17 10:20 12:05 17:51 WBC RBC Hgb Hct MCHC RDW Plt Count Neutrophils # Lymphocytes # ABG pH ABG pCO2 ABG pO2 ABG HCO3 ABG Total CO2 ABG O2 Saturation ABG Hematocrit ABG Lactic Acid VBG pH VBG pCO2 VBG HCO3 Sodium Potassium Chloride Carbon Dioxide BUN Creatinine Glucose POC Glucose (mg/dL) 195 H 218 H Hemoglobin A1c Plasma Lactic Acid Mario Calcium Phosphorus Magnesium Total Bilirubin AST Alkaline Phosphatase Total Creatine Kinase CK-MB (CK-2) Troponin I Total Protein Albumin Triglycerides Urine Protein 1+ H Urine Glucose (UA) Urine Blood Small H Ur Leukocyte Esterase Small H Urine RBC Urine WBC 9 H Amorphous Sediment Rare H Urine Bacteria Hyaline Casts 12 H Urine Mucus Rare H Crossmatch 03/31/17 04/01/17 04/01/17 20:31 03:18 04:20 WBC 14.6 H RBC 2.65 L Hgb 7.4 L Hct 24.4 L MCHC 30.3 L RDW Plt Count 488 H Neutrophils # 11.7 H Lymphocytes # ABG pH ABG pCO2 ABG pO2 ABG HCO3 ABG Total CO2 ABG O2 Saturation ABG Hematocrit ABG Lactic Acid VBG pH VBG pCO2 VBG HCO3 Sodium Potassium Chloride Carbon Dioxide BUN Creatinine Glucose POC Glucose (mg/dL) 230 H 186 H Hemoglobin A1c Plasma Lactic Acid Mario Calcium Phosphorus Magnesium Total Bilirubin AST Alkaline Phosphatase Total Creatine Kinase CK-MB (CK-2) Troponin I Total Protein Albumin Triglycerides Urine Protein Urine Glucose (UA) Urine Blood Ur Leukocyte Esterase Urine RBC Urine WBC Amorphous Sediment Urine Bacteria Hyaline Casts Urine Mucus Crossmatch 04/01/17 04/01/17 04/01/17 04:20 07:44 12:25 WBC RBC Hgb Hct MCHC RDW Plt Count Neutrophils # Lymphocytes # ABG pH ABG pCO2 ABG pO2 ABG HCO3 ABG Total CO2 ABG O2 Saturation ABG Hematocrit ABG Lactic Acid VBG pH VBG pCO2 VBG HCO3 Sodium 150 H Potassium Chloride 119 H Carbon Dioxide 16 L BUN 102 H* Creatinine 4.10 H Glucose 184 H POC Glucose (mg/dL) 143 H 208 H Hemoglobin A1c Plasma Lactic Acid Mario Calcium 8.0 L Phosphorus 5.3 H Magnesium 2.5 H Total Bilirubin AST Alkaline Phosphatase Total Creatine Kinase CK-MB (CK-2) Troponin I Total Protein Albumin Triglycerides Urine Protein Urine Glucose (UA) Urine Blood Ur Leukocyte Esterase Urine RBC Urine WBC Amorphous Sediment Urine Bacteria Hyaline Casts Urine Mucus Crossmatch 04/01/17 04/01/17 04/02/17 17:02 20:48 01:57 WBC RBC Hgb Hct MCHC RDW Plt Count Neutrophils # Lymphocytes # ABG pH ABG pCO2 ABG pO2 ABG HCO3 ABG Total CO2 ABG O2 Saturation ABG Hematocrit ABG Lactic Acid VBG pH VBG pCO2 VBG HCO3 Sodium Potassium Chloride Carbon Dioxide BUN Creatinine Glucose POC Glucose (mg/dL) 211 H 239 H 261 H Hemoglobin A1c Plasma Lactic Acid Mario Calcium Phosphorus Magnesium Total Bilirubin AST Alkaline Phosphatase Total Creatine Kinase CK-MB (CK-2) Troponin I Total Protein Albumin Triglycerides Urine Protein Urine Glucose (UA) Urine Blood Ur Leukocyte Esterase Urine RBC Urine WBC Amorphous Sediment Urine Bacteria Hyaline Casts Urine Mucus Crossmatch 04/02/17 04/02/17 04/02/17 07:16 09:50 11:09 WBC RBC Hgb Hct MCHC RDW Plt Count Neutrophils # Lymphocytes # ABG pH ABG pCO2 ABG pO2 ABG HCO3 ABG Total CO2 ABG O2 Saturation ABG Hematocrit ABG Lactic Acid VBG pH VBG pCO2 VBG HCO3 Sodium Potassium Chloride 115 H Carbon Dioxide 17 L BUN 97 H* Creatinine 3.90 H Glucose 233 H POC Glucose (mg/dL) 246 H 250 H Hemoglobin A1c Plasma Lactic Acid Mario Calcium 8.1 L Phosphorus Magnesium Total Bilirubin AST Alkaline Phosphatase Total Creatine Kinase CK-MB (CK-2) Troponin I Total Protein Albumin Triglycerides Urine Protein Urine Glucose (UA) Urine Blood Ur Leukocyte Esterase Urine RBC Urine WBC Amorphous Sediment Urine Bacteria Hyaline Casts Urine Mucus Crossmatch 04/02/17 04/02/17 04/03/17 17:06 19:54 02:07 WBC RBC Hgb Hct MCHC RDW Plt Count Neutrophils # Lymphocytes # ABG pH ABG pCO2 ABG pO2 ABG HCO3 ABG Total CO2 ABG O2 Saturation ABG Hematocrit ABG Lactic Acid VBG pH VBG pCO2 VBG HCO3 Sodium Potassium Chloride Carbon Dioxide BUN Creatinine Glucose POC Glucose (mg/dL) 212 H 221 H 218 H Hemoglobin A1c Plasma Lactic Acid Mario Calcium Phosphorus Magnesium Total Bilirubin AST Alkaline Phosphatase Total Creatine Kinase CK-MB (CK-2) Troponin I Total Protein Albumin Triglycerides Urine Protein Urine Glucose (UA) Urine Blood Ur Leukocyte Esterase Urine RBC Urine WBC Amorphous Sediment Urine Bacteria Hyaline Casts Urine Mucus Crossmatch 04/03/17 04/03/17 04/03/17 07:25 07:30 12:22 WBC RBC Hgb Hct MCHC RDW Plt Count Neutrophils # Lymphocytes # ABG pH ABG pCO2 ABG pO2 ABG HCO3 ABG Total CO2 ABG O2 Saturation ABG Hematocrit ABG Lactic Acid VBG pH VBG pCO2 VBG HCO3 Sodium Potassium 5.3 H Chloride 113 H Carbon Dioxide 18 L BUN 92 H* Creatinine 3.52 H Glucose 240 H POC Glucose (mg/dL) 242 H 278 H Hemoglobin A1c Plasma Lactic Acid Mario Calcium 7.8 L Phosphorus 4.7 H Magnesium Total Bilirubin AST Alkaline Phosphatase Total Creatine Kinase CK-MB (CK-2) Troponin I Total Protein Albumin Triglycerides Urine Protein Urine Glucose (UA) Urine Blood Ur Leukocyte Esterase Urine RBC Urine WBC Amorphous Sediment Urine Bacteria Hyaline Casts Urine Mucus Crossmatch 04/03/17 04/03/17 04/03/17 17:07 20:18 23:34 WBC RBC Hgb Hct MCHC RDW Plt Count Neutrophils # Lymphocytes # ABG pH ABG pCO2 ABG pO2 ABG HCO3 ABG Total CO2 ABG O2 Saturation ABG Hematocrit ABG Lactic Acid VBG pH VBG pCO2 VBG HCO3 Sodium Potassium Chloride Carbon Dioxide BUN Creatinine Glucose POC Glucose (mg/dL) 239 H 182 H Hemoglobin A1c Plasma Lactic Acid Mario Calcium Phosphorus Magnesium Total Bilirubin AST Alkaline Phosphatase Total Creatine Kinase CK-MB (CK-2) Troponin I Total Protein Albumin Triglycerides Urine Protein 1+ H Urine Glucose (UA) Urine Blood Small H Ur Leukocyte Esterase Small H Urine RBC Urine WBC 9 H Amorphous Sediment Occasional H Urine Bacteria Rare H Hyaline Casts Urine Mucus Rare H Crossmatch 04/04/17 04/04/17 04/04/17 02:08 07:41 07:41 WBC 13.2 H RBC 2.75 L Hgb 7.9 L Hct 25.2 L MCHC RDW Plt Count 624 H Neutrophils # 10.2 H Lymphocytes # ABG pH ABG pCO2 ABG pO2 ABG HCO3 ABG Total CO2 ABG O2 Saturation ABG Hematocrit ABG Lactic Acid VBG pH VBG pCO2 VBG HCO3 Sodium Potassium Chloride 113 H Carbon Dioxide 17 L BUN 87 H* Creatinine 3.58 H Glucose 276 H POC Glucose (mg/dL) 223 H Hemoglobin A1c Plasma Lactic Acid Mario Calcium 7.9 L Phosphorus 5.2 H Magnesium Total Bilirubin AST Alkaline Phosphatase Total Creatine Kinase CK-MB (CK-2) Troponin I Total Protein Albumin Triglycerides Urine Protein Urine Glucose (UA) Urine Blood Ur Leukocyte Esterase Urine RBC Urine WBC Amorphous Sediment Urine Bacteria Hyaline Casts Urine Mucus Crossmatch 04/04/17 04/04/17 04/04/17 07:43 11:23 17:30 WBC RBC Hgb Hct MCHC RDW Plt Count Neutrophils # Lymphocytes # ABG pH ABG pCO2 ABG pO2 ABG HCO3 ABG Total CO2 ABG O2 Saturation ABG Hematocrit ABG Lactic Acid VBG pH VBG pCO2 VBG HCO3 Sodium Potassium Chloride Carbon Dioxide BUN Creatinine Glucose POC Glucose (mg/dL) 277 H 216 H 191 H Hemoglobin A1c Plasma Lactic Acid Mario Calcium Phosphorus Magnesium Total Bilirubin AST Alkaline Phosphatase Total Creatine Kinase CK-MB (CK-2) Troponin I Total Protein Albumin Triglycerides Urine Protein Urine Glucose (UA) Urine Blood Ur Leukocyte Esterase Urine RBC Urine WBC Amorphous Sediment Urine Bacteria Hyaline Casts Urine Mucus Crossmatch 04/04/17 04/05/17 04/05/17 20:16 02:04 06:54 WBC RBC Hgb Hct MCHC RDW Plt Count Neutrophils # Lymphocytes # ABG pH ABG pCO2 ABG pO2 ABG HCO3 ABG Total CO2 ABG O2 Saturation ABG Hematocrit ABG Lactic Acid VBG pH VBG pCO2 VBG HCO3 Sodium Potassium Chloride 114 H Carbon Dioxide 18 L BUN 84 H* Creatinine 3.35 H Glucose 266 H POC Glucose (mg/dL) 233 H 238 H Hemoglobin A1c Plasma Lactic Acid Mario Calcium 7.7 L Phosphorus 4.9 H Magnesium Total Bilirubin AST Alkaline Phosphatase Total Creatine Kinase CK-MB (CK-2) Troponin I Total Protein Albumin 2.3 L Triglycerides Urine Protein Urine Glucose (UA) Urine Blood Ur Leukocyte Esterase Urine RBC Urine WBC Amorphous Sediment Urine Bacteria Hyaline Casts Urine Mucus Crossmatch 04/05/17 04/05/17 04/05/17 06:54 06:58 11:53 WBC 11.0 H RBC 2.72 L Hgb 7.5 L Hct 25.5 L MCHC 29.3 L RDW Plt Count 586 H Neutrophils # 8.4 H Lymphocytes # ABG pH ABG pCO2 ABG pO2 ABG HCO3 ABG Total CO2 ABG O2 Saturation ABG Hematocrit ABG Lactic Acid VBG pH VBG pCO2 VBG HCO3 Sodium Potassium Chloride Carbon Dioxide BUN Creatinine Glucose POC Glucose (mg/dL) 264 H 167 H Hemoglobin A1c Plasma Lactic Acid Mario Calcium Phosphorus Magnesium Total Bilirubin AST Alkaline Phosphatase Total Creatine Kinase CK-MB (CK-2) Troponin I Total Protein Albumin Triglycerides Urine Protein Urine Glucose (UA) Urine Blood Ur Leukocyte Esterase Urine RBC Urine WBC Amorphous Sediment Urine Bacteria Hyaline Casts Urine Mucus Crossmatch 04/05/17 04/05/17 04/06/17 17:17 20:41 02:31 WBC RBC Hgb Hct MCHC RDW Plt Count Neutrophils # Lymphocytes # ABG pH ABG pCO2 ABG pO2 ABG HCO3 ABG Total CO2 ABG O2 Saturation ABG Hematocrit ABG Lactic Acid VBG pH VBG pCO2 VBG HCO3 Sodium Potassium Chloride Carbon Dioxide BUN Creatinine Glucose POC Glucose (mg/dL) 255 H 266 H 312 H Hemoglobin A1c Plasma Lactic Acid Mario Calcium Phosphorus Magnesium Total Bilirubin AST Alkaline Phosphatase Total Creatine Kinase CK-MB (CK-2) Troponin I Total Protein Albumin Triglycerides Urine Protein Urine Glucose (UA) Urine Blood Ur Leukocyte Esterase Urine RBC Urine WBC Amorphous Sediment Urine Bacteria Hyaline Casts Urine Mucus Crossmatch 04/06/17 04/06/17 04/06/17 06:35 06:35 06:54 WBC RBC 2.68 L Hgb 7.4 L Hct 25.0 L MCHC 29.6 L RDW Plt Count 580 H Neutrophils # Lymphocytes # 0.9 L ABG pH ABG pCO2 ABG pO2 ABG HCO3 ABG Total CO2 ABG O2 Saturation ABG Hematocrit ABG Lactic Acid VBG pH VBG pCO2 VBG HCO3 Sodium Potassium Chloride 113 H Carbon Dioxide 17 L BUN 73 H Creatinine 2.88 H Glucose 321 H POC Glucose (mg/dL) 318 H Hemoglobin A1c Plasma Lactic Acid Mario Calcium 7.6 L Phosphorus Magnesium Total Bilirubin AST Alkaline Phosphatase Total Creatine Kinase CK-MB (CK-2) Troponin I Total Protein Albumin Triglycerides Urine Protein Urine Glucose (UA) Urine Blood Ur Leukocyte Esterase Urine RBC Urine WBC Amorphous Sediment Urine Bacteria Hyaline Casts Urine Mucus Crossmatch 04/06/17 04/06/17 04/06/17 11:22 17:08 20:31 WBC RBC Hgb Hct MCHC RDW Plt Count Neutrophils # Lymphocytes # ABG pH ABG pCO2 ABG pO2 ABG HCO3 ABG Total CO2 ABG O2 Saturation ABG Hematocrit ABG Lactic Acid VBG pH VBG pCO2 VBG HCO3 Sodium Potassium Chloride Carbon Dioxide BUN Creatinine Glucose POC Glucose (mg/dL) 261 H 231 H 271 H Hemoglobin A1c Plasma Lactic Acid Mario Calcium Phosphorus Magnesium Total Bilirubin AST Alkaline Phosphatase Total Creatine Kinase CK-MB (CK-2) Troponin I Total Protein Albumin Triglycerides Urine Protein Urine Glucose (UA) Urine Blood Ur Leukocyte Esterase Urine RBC Urine WBC Amorphous Sediment Urine Bacteria Hyaline Casts Urine Mucus Crossmatch 04/07/17 04/07/17 04/07/17 02:32 07:05 07:56 WBC RBC Hgb Hct MCHC RDW Plt Count Neutrophils # Lymphocytes # ABG pH ABG pCO2 ABG pO2 ABG HCO3 ABG Total CO2 ABG O2 Saturation ABG Hematocrit ABG Lactic Acid VBG pH VBG pCO2 VBG HCO3 Sodium Potassium Chloride 114 H Carbon Dioxide 17 L BUN 68 H Creatinine 2.64 H Glucose 354 H POC Glucose (mg/dL) 324 H 341 H Hemoglobin A1c Plasma Lactic Acid Mario Calcium 7.8 L Phosphorus Magnesium Total Bilirubin AST Alkaline Phosphatase Total Creatine Kinase CK-MB (CK-2) Troponin I Total Protein Albumin Triglycerides Urine Protein Urine Glucose (UA) Urine Blood Ur Leukocyte Esterase Urine RBC Urine WBC Amorphous Sediment Urine Bacteria Hyaline Casts Urine Mucus Crossmatch 04/07/17 04/07/17 04/07/17 07:56 11:23 15:31 WBC RBC 2.77 L Hgb 7.6 L Hct 26.0 L MCHC 29.1 L RDW Plt Count 603 H Neutrophils # 7.8 H Lymphocytes # ABG pH ABG pCO2 ABG pO2 ABG HCO3 ABG Total CO2 ABG O2 Saturation ABG Hematocrit ABG Lactic Acid VBG pH VBG pCO2 VBG HCO3 Sodium Potassium Chloride Carbon Dioxide BUN Creatinine Glucose POC Glucose (mg/dL) 311 H 288 H Hemoglobin A1c Plasma Lactic Acid Mario Calcium Phosphorus Magnesium Total Bilirubin AST Alkaline Phosphatase Total Creatine Kinase CK-MB (CK-2) Troponin I Total Protein Albumin Triglycerides Urine Protein Urine Glucose (UA) Urine Blood Ur Leukocyte Esterase Urine RBC Urine WBC Amorphous Sediment Urine Bacteria Hyaline Casts Urine Mucus Crossmatch 04/07/17 04/07/17 04/07/17 15:59 16:48 17:23 WBC 25.0 H* RBC 2.78 L Hgb 7.9 L Hct 25.7 L MCHC 30.9 L RDW Plt Count 783 H Neutrophils # 21.7 H Lymphocytes # ABG pH 7.09 L* ABG pCO2 47 H ABG pO2 196 H ABG HCO3 14 L ABG Total CO2 15 L ABG O2 Saturation 99.0 H ABG Hematocrit ABG Lactic Acid VBG pH VBG pCO2 VBG HCO3 Sodium Potassium Chloride Carbon Dioxide BUN Creatinine Glucose POC Glucose (mg/dL) 275 H Hemoglobin A1c Plasma Lactic Acid Mario Calcium Phosphorus Magnesium Total Bilirubin AST Alkaline Phosphatase Total Creatine Kinase CK-MB (CK-2) Troponin I Total Protein Albumin Triglycerides Urine Protein Urine Glucose (UA) Urine Blood Ur Leukocyte Esterase Urine RBC Urine WBC Amorphous Sediment Urine Bacteria Hyaline Casts Urine Mucus Crossmatch 04/07/17 04/07/17 04/07/17 17:23 17:23 17:49 WBC RBC Hgb Hct MCHC RDW Plt Count Neutrophils # Lymphocytes # ABG pH 7.24 L ABG pCO2 32 L ABG pO2 60 L ABG HCO3 13 L ABG Total CO2 14 L ABG O2 Saturation 87.0 L ABG Hematocrit ABG Lactic Acid VBG pH VBG pCO2 VBG HCO3 Sodium Potassium Chloride 115 H Carbon Dioxide 14 L BUN 63 H Creatinine 2.85 H Glucose 262 H POC Glucose (mg/dL) Hemoglobin A1c Plasma Lactic Acid Mario 6.5 H* Calcium 7.5 L Phosphorus Magnesium Total Bilirubin AST Alkaline Phosphatase 142 H Total Creatine Kinase CK-MB (CK-2) Troponin I Total Protein 6.1 L Albumin 2.3 L Triglycerides Urine Protein Urine Glucose (UA) Urine Blood Ur Leukocyte Esterase Urine RBC Urine WBC Amorphous Sediment Urine Bacteria Hyaline Casts Urine Mucus Crossmatch 04/07/17 04/07/17 04/07/17 19:41 20:50 21:15 WBC RBC Hgb Hct MCHC RDW Plt Count Neutrophils # Lymphocytes # ABG pH ABG pCO2 ABG pO2 ABG HCO3 ABG Total CO2 ABG O2 Saturation ABG Hematocrit ABG Lactic Acid VBG pH VBG pCO2 VBG HCO3 Sodium Potassium Chloride Carbon Dioxide BUN Creatinine Glucose POC Glucose (mg/dL) 235 H 223 H Hemoglobin A1c Plasma Lactic Acid Mario 3.9 H* Calcium Phosphorus Magnesium Total Bilirubin AST Alkaline Phosphatase Total Creatine Kinase CK-MB (CK-2) Troponin I Total Protein Albumin Triglycerides Urine Protein Urine Glucose (UA) Urine Blood Ur Leukocyte Esterase Urine RBC Urine WBC Amorphous Sediment Urine Bacteria Hyaline Casts Urine Mucus Crossmatch 04/07/17 04/07/17 04/08/17 22:07 23:06 02:07 WBC RBC Hgb Hct MCHC RDW Plt Count Neutrophils # Lymphocytes # ABG pH ABG pCO2 ABG pO2 ABG HCO3 ABG Total CO2 ABG O2 Saturation ABG Hematocrit ABG Lactic Acid VBG pH VBG pCO2 VBG HCO3 Sodium Potassium Chloride Carbon Dioxide BUN Creatinine Glucose POC Glucose (mg/dL) 142 H 110 H 104 H Hemoglobin A1c Plasma Lactic Acid Mario Calcium Phosphorus Magnesium Total Bilirubin AST Alkaline Phosphatase Total Creatine Kinase CK-MB (CK-2) Troponin I Total Protein Albumin Triglycerides Urine Protein Urine Glucose (UA) Urine Blood Ur Leukocyte Esterase Urine RBC Urine WBC Amorphous Sediment Urine Bacteria Hyaline Casts Urine Mucus Crossmatch 04/08/17 04/08/17 04/08/17 03:41 04:25 04:30 WBC RBC Hgb Hct MCHC RDW Plt Count Neutrophils # Lymphocytes # ABG pH ABG pCO2 25 L ABG pO2 132 H ABG HCO3 16 L ABG Total CO2 17 L ABG O2 Saturation 99.0 H ABG Hematocrit ABG Lactic Acid VBG pH VBG pCO2 VBG HCO3 Sodium Potassium Chloride Carbon Dioxide BUN Creatinine Glucose POC Glucose (mg/dL) 117 H Hemoglobin A1c 7.9 H Plasma Lactic Acid Mario Calcium Phosphorus Magnesium Total Bilirubin AST Alkaline Phosphatase Total Creatine Kinase CK-MB (CK-2) Troponin I Total Protein Albumin Triglycerides Urine Protein Urine Glucose (UA) Urine Blood Ur Leukocyte Esterase Urine RBC Urine WBC Amorphous Sediment Urine Bacteria Hyaline Casts Urine Mucus Crossmatch 04/08/17 04/08/17 04/08/17 04:30 04:30 08:21 WBC 17.8 H RBC 2.68 L Hgb 7.5 L Hct 23.8 L MCHC RDW Plt Count 624 H Neutrophils # 15.4 H Lymphocytes # ABG pH ABG pCO2 ABG pO2 ABG HCO3 ABG Total CO2 ABG O2 Saturation ABG Hematocrit ABG Lactic Acid VBG pH VBG pCO2 VBG HCO3 Sodium Potassium Chloride 119 H Carbon Dioxide 14 L BUN 67 H Creatinine 3.04 H Glucose 111 H POC Glucose (mg/dL) 135 H Hemoglobin A1c Plasma Lactic Acid Mario Calcium 7.4 L Phosphorus Magnesium Total Bilirubin AST Alkaline Phosphatase Total Creatine Kinase CK-MB (CK-2) Troponin I Total Protein Albumin Triglycerides Urine Protein Urine Glucose (UA) Urine Blood Ur Leukocyte Esterase Urine RBC Urine WBC Amorphous Sediment Urine Bacteria Hyaline Casts Urine Mucus Crossmatch 04/08/17 04/08/17 04/08/17 11:52 16:11 19:56 WBC RBC Hgb Hct MCHC RDW Plt Count Neutrophils # Lymphocytes # ABG pH ABG pCO2 ABG pO2 ABG HCO3 ABG Total CO2 ABG O2 Saturation ABG Hematocrit ABG Lactic Acid VBG pH VBG pCO2 VBG HCO3 Sodium Potassium Chloride Carbon Dioxide BUN Creatinine Glucose POC Glucose (mg/dL) 157 H 238 H 220 H Hemoglobin A1c Plasma Lactic Acid Mario Calcium Phosphorus Magnesium Total Bilirubin AST Alkaline Phosphatase Total Creatine Kinase CK-MB (CK-2) Troponin I Total Protein Albumin Triglycerides Urine Protein Urine Glucose (UA) Urine Blood Ur Leukocyte Esterase Urine RBC Urine WBC Amorphous Sediment Urine Bacteria Hyaline Casts Urine Mucus Crossmatch 04/09/17 00:00 WBC RBC Hgb Hct MCHC RDW Plt Count Neutrophils # Lymphocytes # ABG pH ABG pCO2 ABG pO2 ABG HCO3 ABG Total CO2 ABG O2 Saturation ABG Hematocrit ABG Lactic Acid VBG pH VBG pCO2 VBG HCO3 Sodium Potassium Chloride Carbon Dioxide BUN Creatinine Glucose POC Glucose (mg/dL) 243 H Hemoglobin A1c Plasma Lactic Acid Mario Calcium Phosphorus Magnesium Total Bilirubin AST Alkaline Phosphatase Total Creatine Kinase CK-MB (CK-2) Troponin I Total Protein Albumin Triglycerides Urine Protein Urine Glucose (UA) Urine Blood Ur Leukocyte Esterase Urine RBC Urine WBC Amorphous Sediment Urine Bacteria Hyaline Casts Urine Mucus Crossmatch Assessment and Plan (1) Seizure Status: Acute (2) Anoxic brain injury Status: Acute Plan: Anoxic brain injury, post cardiac arrest with resuscitation Seizures secondary to anoxic brain injury and cardiac arrest: Patient does have new onset seizure with status epilepticus. Patient has been started on IV Keppra 1000 mg by mouth every 12 hours. We will prescribe Depakote 500 mg IV every 8 hours. Repeat EEG and CT of the brain are scheduled for morning of 04/09/2017. Continue neuro checks as previously scheduled. Continue DVT prophylaxis: Prognosis: Given the patient's comorbidities, current status and history of cardiac arrest with resuscitation, overall prognosis is extremely poor. Recommend family meeting to discuss goals of treatment. Status: Neurology will continue to follow provide updates as needed or warranted. Any further questions can be directed to our office. I discussed the patients history, physical exam, diagnostic testing, lab work and imaging with Dr Farmer prior to implementing the plan above. He agrees with the plan as implemented prior to implementation.
[2017-04-09 04:02] LABS: Glucose,Whole Blood 220 mg/dL (75-99)
[2017-04-09 04:58] LABS: CH 27.7; CHCM 31.7; HCT 21.2 % (39.0-53.0); HDW 3.57; Hypochromasia Moderate; MCH 27.6 pg (25.0-35.0); MCHC 31.4 g/dL (31.0-37.0); MCV 87.8 fL (80.0-100.0); Mean Platelet Volume 8.3; Poikilocytosis Slight; RBC 2.41 m/uL (4.30-5.90); RDW 15.4 % (11.5-15.5); WBC 21.8 k/uL (3.8-10.6)
[2017-04-09 05:03] LABS: HGB 6.7 gm/dL (13.0-17.5)
[2017-04-09 05:04] LABS: ABG Base Excess -9.2 mmol/L; ABG HCO3 15 mmol/L (21-25); ABG PCO2 25 mmHg (35-45); ABG PH 7.39 (7.35-7.45); ABG PO2 89 mmHg (83-108)
[2017-04-09 05:08] LABS: Ionized Calcium 4.9 mg/dL (4.5-5.3)
--- NOTE | 2017-04-09 05:13 | EEG ---
DATE OF SERVICE: 04/08/2017 REASON FOR TESTING: Unresponsiveness, status post cardiac arrest with myoclonic jerks. DESCRIPTION OF THE PROCEDURE: This EEG was performed using a 21-channel digital electroencephalograph, following international 10-20 system. DESCRIPTION OF THE RECORDING: From the beginning of the tracing, and with the patient's eyes closed, the background rhythm was mostly consisting of 5 to 6 Hz theta frequency in the posterior occipital leads. Recurrent generalized sharp wave activity is seen consistent with epileptiform discharges each lasting approximately 5 seconds. Photic stimulation was performed with no driving response seen. Hyperventilation was not performed. The sharp wave activity continued to occur throughout the tracing and each lasting approximately 5 seconds. INTERPRETATION: This EEG is abnormal due to the presence of recurrent epileptiform discharges that are mostly generalized and lasting approximately 5 seconds each. Clinical correlation is recommended. MTDD
[2017-04-09 05:14] LABS: Calcium 7.2 mg/dL (8.4-10.2); Magnesium 2.3 mg/dL (1.6-2.3); Phosphorous 3.9 mg/dL (2.5-4.5); Potassium 4.3 mmol/L (3.5-5.1)
--- NOTE | 2017-04-09 07:32 | XR ---
EXAMINATION TYPE: XR chest 1V portable DATE OF EXAM: 04/09/2017 COMPARISON: 04/08/2017 HISTORY: Ventilatory dependent respiratory failure TECHNIQUE: Single frontal view of the chest is obtained. FINDINGS: There is improved aeration of the upper lungs with mild cephalization remaining. Layering small right pleural effusion and trace left pleural effusion are appreciated with associated bibasila r airspace disease, likely compressive atelectasis. Endotracheal tube and enteric tubes are unchanged . Cardiac silhouette remains enlarged. Right PICC is also in unchanged position. Lung volumes are low . Degenerative changes of the acromio clavicular joint and thoracic spine are noted. IMPRESSION: 1. Improved aeration of the upper lungs with layering bilateral pleural effusions and bibasilar airsp roberto disease, probable atelectasis. 2. Stable mild pulmonary vascular congestion cardiomegaly, likely on the bases of decompensated conge stive heart failure. 3. Unchanged lines and tubes.
[2017-04-09 07:37] LABS: Glucose,Whole Blood 193 mg/dL (75-99)
[2017-04-09] MEDS: IPRATROPIUM-ALBUTEROL 3 ML NEB INHALATION SCH ×4 (07:57→19:10)
[2017-04-09] MEDS: CEFTAROLINE FOSAMIL 300 MG in SODIUM CHLORIDE 0.9% 250 ML IVPB SCH (08:15)
[2017-04-09] MEDS: CHLORHEXIDINE GLUCONATE 15 ML CUP MUCOUS MEM SCH (08:15)
[2017-04-09] MEDS: SODIUM BICARBONATE TAB 650 MG TAB PO SCH (08:15)
[2017-04-09] MEDS: levETIRAcetam IV 1,000 MG in SALINE 1 100ML.BAG IVPB SCH (08:16)
[2017-04-09] MEDS: PANTOPRAZOLE 40 MG/10 ML VIAL IV SCH (08:16)
[2017-04-09 08:42] VITALS: TEMP 99.7
--- NOTE | 2017-04-09 09:24 | PN ---
The patient is seen for follow-up for acute kidney injury. He is status post cardiac arrest times two. There is no significant changes in mentation note post discontinuation of the sedation. The patient has not been waking up. His pupils appear fixed. There is consideration for possible comfort care measures today. The patient has not had any significant urine output. It is at about 10 mL per hour. On examination, blood pressure is 135/63. Heart rate 96 per minute. He is afebrile. Examination of the heart S1, S2. Examination of the lungs bilateral breath sounds are heard. Examination of the lower extremities shows edema 1+ with right BKA. Labs show sodium 140, potassium 4.3. CO2 15, BUN 82, serum creatinine 4.05. Hemoglobin 6.7. ASSESSMENT: 1. Acute kidney injury, acute tubular necrosis secondary to cardiac arrest, hypotension, hypoperfusion, currently oliguric. 2. Metabolic acidosis secondary to gastrointestinal fluid loss as well as worsening renal failure status post IV sodium acetate with increased sodium acetate in the TPN. Acidosis is slightly improved. 3. Anemia, no active bleeding noted at this time. 4. Status post cardiac arrest times two. 5. Decreased mentation with evidence of anoxic encephalopathy clinically. PLAN: Poor prognosis. Recommend comfort care measures. MTDD
[2017-04-09 12:01] VITALS: RESP 30
[2017-04-09 14:08] LABS: Glucose,Whole Blood 201 mg/dL (75-99)
--- NOTE | 2017-04-09 15:01 | P.PN ---
Subjective A 66-year-old male patient who came into the intensive care unit after undergoing expiratory laparotomy and repair of a perforated peptic ulcer with a modified Don patch and open cholecystectomy. Surgery was done last night and the patient was brought into the intensive care unit intubated on a mechanical ventilator. According to the reported history the patient was having 3-4 days history of a vague abdominal pain. This being gradually got worse. The patient was also having constipation. He had some nausea without vomiting. Appetite was diminished. No bright red blood per rectum. The pain was mainly over the central abdomen. No history of any peptic ulcer disease or diverticular disease. The x-ray of the abdomen in the emergency department showed pneumoperitoneum and the CAT scan confirmed the presence of a large volume of free air. The gallbladder was also thickened. The majority of the air was in the upper abdomen. Intraoperatively, the patient was found to have a perforated peptic ulcer and a gangrenous gallbladder. On 03/22/2017 the patient was extubated.. Postextubation, he held himself well. No tachypnea. No respiratory distress. NG tube still in place. The patient's BUN is at 97 creatinine is at 4.5. He was given Lasix IV. He is in significant fluid overload including edema in the lower extremities in the scrotum. Antibiotic coverage includes a combination of Zosyn, daptomycin and Diflucan. Sputum at shown MRSA. 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 He was started on TPN for nutritional support. Following his extubation, the patient had a a difficult and somewhat complicated was operative course. The patient was unable to eat for quite some time. He was supplemented with TPN for nutritional support. He is a also developed bilateral pleural effusion and suspected pneumonia as. He passed a swallow evaluation he was given oral intake yet these oral intake was quite minimal and poor and he was unable to meet his caloric requirements. A repeat CAT scan of the abdomen and pelvis was done on 04/04/2017 it showed cholecystectomy with trace fluid within the gallbladder fossa. It was moderate upper abdominal ascites with a small amount of pelvic fluid. Loculated fluid collection adjacent to the left hepatic lobe and stomach with evidence collected an underlying seroma formation and the possibility of an infected collection was hard to exclude. The patient also had bilateral pleural effusions with compressive atelectasis of the lung bases and the pleural effusions were quite moderate in size. I further reviewed the series of chest x-rays and the last chest x-ray was done on 04/01/2017 which showed bilateral pleural effusions. The patient was further had antibiotic modifications and based on the most recent antibiotic coverage the patient has been on a combination of Teflaro and Flagyl. He has a fecal management system. The patient is producing liquid the stool yet the stool analysis for C. diff was negative on separate occasions. On 04/07/2017 the patient was found to be unresponsive by the nursing staff. He was apparently fine during the day however this afternoon at around 3:30 PM the patient became unresponsive. CODE BLUE was called. He was initially found to be in asystole and based on the code sheet he was asystolic on 1527. The patient was given epinephrine and CPR was initiated. On 1529 he was found to be in V. tach and he was defibrillated with 200 J. He had no pulse for quite some time and his first pulse recovery was at 1539. Levo fed was started at 40 mics. Currently levo fed is still running at 25 mics. The patient has a double -lumen PICC line in the right upper extremity. He is unresponsive for now without sedation. He is on a mechanical ventilator on assist control mode at the rate of 18, tidal volume 500, FiO2 of 100% and PEEP of 5. Blood gases showed a pH of 7.09 with a pCO2 of 47 and pO2 196. Post intubation chest x-ray shows bilateral pleural effusions. ET tube is in a good location. After arriving to the intensive care unit, the patient was being further evaluated and I was in the process of talking to his family when the patient became acutely bradycardic and went to another episodes of PEA. Immediately he was given a sample of epinephrine and an amp of bicarb and he was given few minutes of CPR and following that the blood pressure was reestablished. A Artline catheter was inserted and currently the patient is on 50 mics of levo fed and his most recent blood pressure is 185/70. Castellanos catheter in place and there is no urine output. The patient at times is having tonic jerks which I think it's consistent with an underlying seizure activity. I increased his respiratory rate up to 30 and he remains on a tidal volume of 500 and FiO2 was dropped down to 50%. Contacted the family, discussed the case with his and she'll be arriving to the ICU within the next 20-30 minutes. Updated the brother his condition. The patient is currently unresponsive. Diprivan will be started due to concern of an underlying seizure activity. Hypoxic encephalopathy is being considered based on his recurrent cardiac arrest. on 04/08/2017 the patient is being seen in follow-up. As mentioned , the patient got moved to the intensive care unit after a CODE BLUE on a cardiac arrest. this morning the patient remains intubated on a mechanical ventilator. he is also on sedation with Diprivan which is currently running at 20 mics. On and off he gives a myoclonic jerk and this occurs approximately once every hour. is a very short-acting jerks. I am suspecting underlying seizure activity probably related to hypoxic encephalopathy at the time of cardiac arrest. The patient did not have any significant neurological deficits prior to this event. Meanwhile Derrick he remains on assist control mode at the rate of 30, FiO2 of 60% , tidal volume of 500 and a PEEP of 5. The blood gases from this morning showed a pH of 7.42 with a pCO2 of 24 and pO2 132. The patient had a chest x- ray this morning that showed large bilateral pleural effusions. ET tube is in a good location. CAT scan of the chest was done yesterday and it showed moderate -sized right-sided pleural effusion and compressive atelectasis in lung bases bilaterally. also, CAT scan of the abdomen and pelvis showed ascites and perihepatic fluid which is decreased in size. no other intra-abdominal complications. CAT scan of the brain was essentially negative. the patient he is producing approximately 20 mL's an hour of urine output. the pressors have been weaned off and discontinued overnight and currently he is off the levo fed. He is maintaining his own pressure. he is on IV fluids and currently receiving normal saline at the rate of 50 mL an hour. TPN will be renewed. he received a total of 2 L of IV fluid bolus yesterday. Discussed the case with infectious disease and we decided to keep the same antibiotic coverage. The patient is currently on a combination of Teflaro Flagyl. Echocardiogram is to follow. EEG is to follow. neurologic consultation is to follow regarding possibility of hypoxic/anoxic encephalopathy. Family was informed yesterday about the situation. . the . Talked to the brother at length. On 04/09/2017 the patient is being seen in follow-up. The patient remains completely unresponsive while being off the Diprivan. He was having easier activity based on previous EEG and neurology evaluation and patient was placed on a combination of Keppra and valproate. The patient remains on a mechanical ventilator on assist control mode at the rate of 30, tidal volume 500, FiO2 of 40% and a PEEP of 5. Chest x-ray from today is essentially unchanged and ET tube is in a good location. Blood gases showed a pH of 7.39 with a pCO2 of 25 and pO2 of 89. Meanwhile the patient has demonstrated a drop in urine output and worsening in the renal function. BUN is up to 82 with a creatinine of 4.05. The patient was given Lasix yesterday with suboptimal improvement in the urine output. Currently is producing approximately 20 mL an hour of urine output and overall net fluid balance is +1.9 L over the past 24 hours. He remained afebrile. TPN is running still for nutritional support. He is on a combination of Teflaro Flagyl. He is on no pressors for the time being. The hemoglobin is also down to 6.7. There is no evidence of any external examination is bleeding. Objective - Vital Signs Vital signs: Vital Signs Temp 99.7 F H 04/09/17 08:00 Pulse 106 H 04/09/17 14:00 Resp 30 H 04/09/17 14:00 BP 113/63 04/07/17 21:00 Pulse Ox 82 L 04/09/17 14:00 Intake & Output 04/08/17 04/09/17 04/09/17 18:59 06:59 18:59 Intake Total 2324.978 2250 590 Output Total 531 86 5859 Balance 7141.740 2980 -1315 Weight 101.1 kg 108 kg 108 kg Intake: IV 500 2080 240 0.9 50 100 80 Ceftaroline Fosamil 300 250 250 mg In Sodium Chloride 0.9 % 250 ml @ 250 mls/hr IVPB Q12HR [facility] Rx#: [id number] Dextrose 5% in Water 1, 350 000 ml @ 50 mls/hr IV . Q23H [facility] with Sod Bicarb Syr 8.4% (1 Meq/ml) 150 ml Rx#:[id number] Magnesium Sulfate-D5w Pmx 100 1 gm In Dextrose/Water 1 100ml.bag @ 100 mls/hr IVPB Q1H [facility] Rx#: [id number] Mvi, Adult No.4 with Vit 630 K 10 ml Trace (Conc-1Ml/ Dose) 1 ml Parenteral Electrolytes 20 ml Potassium Acetate 20 meq In Amino Acid 5%-D15w 1, 000 ml @ 100 mls/hr IV . BY DURATION [facility] Rx#: [id number] Mvi, Adult No.4 with Vit 450 K 10 ml Trace (Conc-1Ml/ Dose) 1 ml Potassium Acetate 20 meq Parenteral Electrolytes 20 ml In Amino Acid 5%-D15w 1,000 ml @ 50 mls/hr IV .BY DURATION [facility] Rx#: [id number] Sodium Chloride 0.9% 1, 160 000 ml @ 40 mls/hr IV . Q24H [facility] Rx#:[id number] levETIRAcetam IV 1,000 mg 100 In Saline 1 100ml.bag @ 400 mls/hr IVPB Q12HR [facility] Rx#:[id number] metroNIDAZOLE-NS PMX 500 200 100 mg In Saline 1 100ml.bag @ 100 mls/hr IVPB Q8HR [facility] Rx#:[id number] Intake, IV Titration 1824.978 170 350 Amount Magnesium Sulfate-D5w Pmx 200 1 gm In Dextrose/Water 1 100ml.bag @ 100 mls/hr IVPB Q1H [facility] Rx#: [id number] Mvi, Adult No.4 with Vit 630 90 K 10 ml Trace (Conc-1Ml/ Dose) 1 ml Calcium Gluconate 1,000 mg Potassium Acetate 20 meq In Amino Acid 5%-D15w 1, 000 ml @ 90 mls/hr IV .BY DURATION [facility] Rx#: [id number] Propofol 1,000 mg In 100 54.978 ml @ Titrate IV .Q0M [facility] Rx#:[id number] Sodium Acetate 100 meq In 700 70 100 Dextrose 5% in Water 1, 000 ml @ 70 mls/hr IV ONCE ONE Rx#:[id number] Sodium Chloride 0.9% 1, 90 10 000 ml @ 10 mls/hr IV . Q24H [facility] Rx#:[id number] Valproate Sodium 500 mg 50 50 In Sodium Chloride 0.9% 50 ml @ 50 mls/hr IVPB Q8H [facility] Rx#:[id number] levETIRAcetam IV 1,000 mg 100 200 In Saline 1 100ml.bag @ 400 mls/hr IVPB Q12HR [facility] Rx#:[id number] Output: Gastric Drainage 200 Urine 107 15 105 Stool 600 1800 Other: Voiding Method Indwelling Catheter Indwelling Catheter Indwelling Catheter # Voids 1 ABP, PAP, CO, CI - Last Documented Arterial Blood Pressure 106/53 - Exam Patient unresponsive, intubated on a mechanical ventilator. Orogastric and orotracheal tube are both in place. The patient on and off is having some chronic jerks, probably once every few minutes. He'll be started on Diprivan. EEG is to follow. CAT scan of the brain is to follow.. Head exam was generally normal. There was no scleral icterus or corneal arcus. Mucous membranes were moist.There was no scleral icterus or corneal arcus. Mucous membranes were moist. Neck is supple and there is no JVDs no goiter or neck masses.. The patient also has an orogastric and NG tube in place.Lungs were diminished bilaterally and percussion, and with normal diaphragmatic excursion. No wheezes or rales were noted. Cardiac exam revealed the PMI to be normally situated and sized. The rhythm was regular and no extrasystoles were noted during several minutes of auscultation. The first and second heart sounds were normal and physiologic splitting of the second heart sound was noted. There were no murmurs, rubs, clicks, or gallops. Abdomen is soft. Bowel sounds are absent. There is a midabdominal large skin wound which is dry clean and intact and the patient has an underlying ascites with fluid wave. No direct tenderness. No rebound tenderness. No guarding. 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 Neurologically the patient is unresponsive an underlying seizure activity is not seen on clinical grounds... No significant scrotal edema - Labs CBC & Chem 7: 04/09/17 04:30 04/09/17 04:30 Labs: Abnormal Lab Results - Last 24 Hours (Table) 04/08/17 04/08/17 04/09/17 Range/Units 16:11 19:56 00:00 WBC (3.8-10.6) k/uL RBC (4.30-5.90) m/uL Hgb (13.0-17.5) gm/dL Hct (39.0-53.0) % Plt Count (150-450) k/uL ABG pCO2 (35-45) mmHg ABG HCO3 (21-25) mmol/L ABG O2 Saturation (94-97) % Chloride (98-107) mmol/L Carbon Dioxide (22-30) mmol/L BUN (9-20) mg/dL Creatinine (0.66-1.25) mg/dL Glucose (74-99) mg/dL POC Glucose (mg/dL) 238 H 220 H 243 H (75-99) mg/dL Calcium (8.4-10.2) mg/dL 04/09/17 04/09/17 04/09/17 Range/Units 03:59 04:30 04:30 WBC 21.8 H (3.8-10.6) k/uL RBC 2.41 L (4.30-5.90) m/uL Hgb 6.7 L* (13.0-17.5) gm/dL Hct 21.2 L (39.0-53.0) % Plt Count 558 H (150-450) k/uL ABG pCO2 (35-45) mmHg ABG HCO3 (21-25) mmol/L ABG O2 Saturation (94-97) % Chloride 113 H (98-107) mmol/L Carbon Dioxide 15 L (22-30) mmol/L BUN 82 H* (9-20) mg/dL Creatinine 4.05 H (0.66-1.25) mg/dL Glucose 215 H (74-99) mg/dL POC Glucose (mg/dL) 220 H (75-99) mg/dL Calcium 7.2 L (8.4-10.2) mg/dL 04/09/17 04/09/17 04/09/17 Range/Units 04:40 07:35 12:06 WBC (3.8-10.6) k/uL RBC (4.30-5.90) m/uL Hgb (13.0-17.5) gm/dL Hct (39.0-53.0) % Plt Count (150-450) k/uL ABG pCO2 25 L (35-45) mmHg ABG HCO3 15 L (21-25) mmol/L ABG O2 Saturation 98.0 H (94-97) % Chloride (98-107) mmol/L Carbon Dioxide (22-30) mmol/L BUN (9-20) mg/dL Creatinine (0.66-1.25) mg/dL Glucose (74-99) mg/dL POC Glucose (mg/dL) 193 H 201 H (75-99) mg/dL Calcium (8.4-10.2) mg/dL Microbiology - Last 24 Hours (Table) 04/07/17 20:05 Gram Stain - Preliminary Sputum Sputum Culture - Preliminary Pseudomonas spec 04/03/17 23:50 Blood Culture - Preliminary Blood No Growth after 120 hours 04/04/17 18:58 Blood Culture - Preliminary Blood No Growth after 96 hours 04/04/17 18:33 Blood Culture - Preliminary Blood No Growth after 96 hours Assessment and Plan Plan: Assessment 1 acute cardiac arrest, currently under investigation. The patient coded twice , once on the medical floor with around 14 minutes downtime and another code here in the intensive care unit with treated for minutes of downtime. In both instances the patient received CPR, epinephrine. No defibrillation. No major changes in terms of his hemodynamics over the past 24 hours. Nevertheless the main concern remains his unresponsiveness and the hypoxic encephalopathy that he has suffered. Please refer to the neurology evaluation. The patient was having also seizure activity that was suppressed with a combination of Keppra and valproic acid and the patient had a repeat EEG today. 2 post extra laparotomy and repair of a perforated peptic ulcer a modified Don patch and open cholecystectomy. Patient is postop day #24. 3 History of shock secondary to septic in nature secondary to intra-abdominal sepsis complicated by perforated peptic ulcer and cholecystitis. this was treated earlier with a combination of antibiotics. Subsequent CAT scan of the abdomen showed ascites and perihepatic fluid plan the most recent CAT scan if shown decrease in the size of the fluid collection. 4 acute respiratory failure, a complication of cardiac arrest 5 acute kidney injury on top of chronic renal failure. The patient is currently oliguric producing around 10-any cc of urine output on an hourly basis and the patient also has suffered an acute on top of chronic renal insufficiency and the creatinine is up to 4. Nephrology is on the case. He has an underlying metabolic acidosis in addition. 6 seizure/anoxic encephalopathy. The patient is currently on a combination of valproate and Keppra. No seizure activity is seen on clinical grounds and the patient will have a follow-up EEG reading today. 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 17 Bilateral pleural effusion , moderate to large in size along with compressive atelectasis of the lung bases bilaterally. 18 ascites, with possible infected intra-abdominal fluid related to previous peritonitis and sepsis. 19 anemia with interval drop in hemoglobin down to 6.7. Plan I believe this patient has lost grounds. His chance of recovery is very low and slim specially with a significant neurologic impairment and the hypoxic encephalopathy the patient has suffered at a time of his cardiac arrest. He is unresponsive. He was having on and off seizure activity which got suppressed by combination of valproate and Keppra. Please refer to urology evaluation. However, his problems are not limited to hypoxic encephalopathy and he has ongoing issues with acute on top of chronic renal failure, difficulties with respiratory failure, requiring intubation mechanical ventilation. He remains on TPN for nutritional support. I have discussed this with the family. I think it's reasonable to consider comfort care measures knowing that the patient 's chance of recovery are very slim and he may not even get to the point where he'll be functional or at least get back to his baseline. We have made recommendations for comfort care which the patient turning sander tender to be agreeable and the patient will be having his care withdrawn a later stage once the final decision is made by the family. Meanwhile we'll continue supportive care. We' ll hold off giving him any products for now. Prognosis poor. The patient will likely pass away once comfort care measure this critically care evaluation was done in 50 minutes including a discussion with the family, , brother and nephews and in-laws.
[2017-04-09 15:33] VITALS: PULSE 82
[2017-04-09] MEDS ORDERED: FAT EMULSION 20% 250 ML in EMPTY BAG 1 BAG IV SCH (16:00)
--- NOTE | 2017-04-10 11:42 | EEG ---
ELECTROENCEPHALOGRAM REPORT Date of Service: DATE OF SERVICE: 04/09/2017. REASON FOR TESTING: Seizures. COMPARISON: This EEG was compared to the EEG done on 04/08/2017. CURRENT ANTI-EPILEPTIC MEDICATIONS: Keppra and Depakote. DESCRIPTION OF PROCEDURE: This EEG was performed using a 21-channel digital electroencephalograph, following international 10 to 20 system. DESCRIPTION OF RECORDING: From the beginning of the tracing, the background rhythm was mostly consisting of 5 to 6 Hz theta frequency in the posterior occipital leads. Photic stimulation was performed with no driving response seen. No pathological waves were elicited. No movement artifacts are seen throughout the tracing. No epileptiform discharges were seen. This EEG is improved when compared to yesterday's study, which showed recurrent epileptiform activity. INTERPRETATION: This EEG is abnormal due to the presence of generalized slowing of the background rhythm, mostly in the theta range. This is consistent with moderate encephalopathy. No epileptiform discharges were seen, which is improved when compared to his 04/08/2017 study. Clinical correlation is recommended. MMBRENDONL / IJN: [id number] /
--- NOTE | 2017-04-10 15:02 | P.PN ---
Subjective Progress note being dictated for Dr. Rothman. Interval history:Patient is a 66-year-old admitted on March 16 for open cholecystectomy expiratory laparotomy and repair of the gastric ulcer patient has a highly complicated hospitalization course and post surgical course including pneumoperitoneum. Presently patient is on TPN which is being switched to oral diet. Patient is on broad-spectrum antibiotics for intra- abdominal source of infection Patient apparently was doing well and less today and patient had an episode of cardio pulmonary arrest and patient was resuscitated twice. At this time patient is intubated patient is having active seizures and is on IV Right this time. Patient does have pupillary reflex but absent gag reflex and patient is not breathing over the vent although the set up respiratory rate of on ventilator is around 30. Patient has significant anoxic brain injury evidenced by status epilepticus. Neurology was consulted. At extensive discussion with the family today his prognosis is externally poor and the chance of reasonable neurological recovery is extremely slim same thing was discussed with the family and we're awaiting neurology recommendations and most probable and reasonable course would be terminal extubation and comfort care. Same thing was discussed with the family today. 04/09/2017 worsening renal function, decreased urine output, chest x-ray unchanged. Unresponsive off of Diprovan. Prognosis poor. family has decided to proceed with comfort care with terminal wean. Objective - Vital Signs Vital signs: Vital Signs Temp 99.7 F H 04/09/17 08:00 Pulse 82 04/09/17 15:00 Resp 30 H 04/09/17 15:00 BP 113/63 04/07/17 21:00 Pulse Ox 93 L 04/09/17 15:00 Intake & Output 04/08/17 04/09/17 04/09/17 18:59 06:59 18:59 Intake Total 2324.978 2250 650 Output Total 508 27 1266 Balance 9257.771 5522 -1270 Weight 101.1 kg 108 kg 108 kg Intake: IV 500 2080 300 0.9 50 100 80 Ceftaroline Fosamil 300 250 250 mg In Sodium Chloride 0.9 % 250 ml @ 250 mls/hr IVPB Q12HR [facility] Rx#: [id number] Dextrose 5% in Water 1, 350 000 ml @ 50 mls/hr IV . Q23H [facility] with Sod Bicarb Syr 8.4% (1 Meq/ml) 150 ml Rx#:[id number] Magnesium Sulfate-D5w Pmx 100 1 gm In Dextrose/Water 1 100ml.bag @ 100 mls/hr IVPB Q1H [facility] Rx#: [id number] Mvi, Adult No.4 with Vit 630 K 10 ml Trace (Conc-1Ml/ Dose) 1 ml Parenteral Electrolytes 20 ml Potassium Acetate 20 meq In Amino Acid 5%-D15w 1, 000 ml @ 100 mls/hr IV . BY DURATION [facility] Rx#: [id number] Mvi, Adult No.4 with Vit 450 K 10 ml Trace (Conc-1Ml/ Dose) 1 ml Potassium Acetate 20 meq Parenteral Electrolytes 20 ml In Amino Acid 5%-D15w 1,000 ml @ 50 mls/hr IV .BY DURATION [facility] Rx#: [id number] Sodium Chloride 0.9% 1, 220 000 ml @ 40 mls/hr IV . Q24H [facility] Rx#:[id number] levETIRAcetam IV 1,000 mg 100 In Saline 1 100ml.bag @ 400 mls/hr IVPB Q12HR [facility] Rx#:[id number] metroNIDAZOLE-NS PMX 500 200 100 mg In Saline 1 100ml.bag @ 100 mls/hr IVPB Q8HR [facility] Rx#:[id number] Intake, IV Titration 1824.978 170 350 Amount Magnesium Sulfate-D5w Pmx 200 1 gm In Dextrose/Water 1 100ml.bag @ 100 mls/hr IVPB Q1H [facility] Rx#: [id number] Mvi, Adult No.4 with Vit 630 90 K 10 ml Trace (Conc-1Ml/ Dose) 1 ml Calcium Gluconate 1,000 mg Potassium Acetate 20 meq In Amino Acid 5%-D15w 1, 000 ml @ 90 mls/hr IV .BY DURATION [facility] Rx#: [id number] Propofol 1,000 mg In 100 54.978 ml @ Titrate IV .Q0M [facility] Rx#:[id number] Sodium Acetate 100 meq In 700 70 100 Dextrose 5% in Water 1, 000 ml @ 70 mls/hr IV ONCE ONE Rx#:[id number] Sodium Chloride 0.9% 1, 90 10 000 ml @ 10 mls/hr IV . Q24H [facility] Rx#:[id number] Valproate Sodium 500 mg 50 50 In Sodium Chloride 0.9% 50 ml @ 50 mls/hr IVPB Q8H [facility] Rx#:[id number] levETIRAcetam IV 1,000 mg 100 200 In Saline 1 100ml.bag @ 400 mls/hr IVPB Q12HR [facility] Rx#:[id number] Output: Gastric Drainage 200 Urine 107 15 120 Stool 600 1800 Other: Voiding Method Indwelling Catheter Indwelling Catheter Indwelling Catheter # Voids 1 ABP, PAP, CO, CI - Last Documented Arterial Blood Pressure 104/54 - Exam Unchanged: unresponsive, intubated on a mechanical ventilator. Orogastric and orotracheal tube are both in place. The patient on and off is having some chronic jerks, probably once every few minutes. He'll be started on Diprivan. EEG is to follow. CAT scan of the brain is to follow.. Head exam was generally normal. There was no scleral icterus or corneal arcus. Mucous membranes were moist.There was no scleral icterus or corneal arcus. Mucous membranes were moist. Neck is supple and there is no JVDs no goiter or neck masses.. The patient also has an orogastric and NG tube in place.Lungs were diminished bilaterally and percussion, and with normal diaphragmatic excursion. No wheezes or rales were noted. Cardiac exam revealed the PMI to be normally situated and sized. The rhythm was regular and no extrasystoles were noted during several minutes of auscultation. The first and second heart sounds were normal and physiologic splitting of the second heart sound was noted. There were no murmurs, rubs, clicks, or gallops. Abdomen is soft. Bowel sounds are absent. There is a midabdominal large skin wound which is dry clean and intact and the patient has an underlying ascites with fluid wave. No direct tenderness. No rebound tenderness. No guarding. 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 Neurologically the patient is awake unresponsive an underlying seizure activity as suspected.. No significant scrotal edema. Patient has absent gag reflex people or recent reflexes are present patient is presently in status epilepticus - Labs CBC & Chem 7: 04/09/17 04:30 04/09/17 04:30 Labs: Abnormal Lab Results - Last 24 Hours (Table) 04/08/17 04/09/17 04/09/17 Range/Units 19:56 00:00 03:59 WBC (3.8-10.6) k/uL RBC (4.30-5.90) m/uL Hgb (13.0-17.5) gm/dL Hct (39.0-53.0) % Plt Count (150-450) k/uL ABG pCO2 (35-45) mmHg ABG HCO3 (21-25) mmol/L ABG O2 Saturation (94-97) % Chloride (98-107) mmol/L Carbon Dioxide (22-30) mmol/L BUN (9-20) mg/dL Creatinine (0.66-1.25) mg/dL Glucose (74-99) mg/dL POC Glucose (mg/dL) 220 H 243 H 220 H (75-99) mg/dL Calcium (8.4-10.2) mg/dL 04/09/17 04/09/17 04/09/17 Range/Units 04:30 04:30 04:40 WBC 21.8 H (3.8-10.6) k/uL RBC 2.41 L (4.30-5.90) m/uL Hgb 6.7 L* (13.0-17.5) gm/dL Hct 21.2 L (39.0-53.0) % Plt Count 558 H (150-450) k/uL ABG pCO2 25 L (35-45) mmHg ABG HCO3 15 L (21-25) mmol/L ABG O2 Saturation 98.0 H (94-97) % Chloride 113 H (98-107) mmol/L Carbon Dioxide 15 L (22-30) mmol/L BUN 82 H* (9-20) mg/dL Creatinine 4.05 H (0.66-1.25) mg/dL Glucose 215 H (74-99) mg/dL POC Glucose (mg/dL) (75-99) mg/dL Calcium 7.2 L (8.4-10.2) mg/dL 04/09/17 04/09/17 Range/Units 07:35 12:06 WBC (3.8-10.6) k/uL RBC (4.30-5.90) m/uL Hgb (13.0-17.5) gm/dL Hct (39.0-53.0) % Plt Count (150-450) k/uL ABG pCO2 (35-45) mmHg ABG HCO3 (21-25) mmol/L ABG O2 Saturation (94-97) % Chloride (98-107) mmol/L Carbon Dioxide (22-30) mmol/L BUN (9-20) mg/dL Creatinine (0.66-1.25) mg/dL Glucose (74-99) mg/dL POC Glucose (mg/dL) 193 H 201 H (75-99) mg/dL Calcium (8.4-10.2) mg/dL Microbiology - Last 24 Hours (Table) 04/07/17 20:05 Gram Stain - Preliminary Sputum Sputum Culture - Preliminary Pseudomonas spec 04/03/17 23:50 Blood Culture - Preliminary Blood No Growth after 120 hours 04/04/17 18:58 Blood Culture - Preliminary Blood No Growth after 96 hours 04/04/17 18:33 Blood Culture - Preliminary Blood No Growth after 96 hours Assessment and Plan Plan: #1 acute cardiopulmonary arrest with significant anoxic brain injury: Discussed with with the family members as mentioned above. Patient is on constant status of peptic is prepared for which patient is on IV. #2 status of left because: Secondary to severe anoxic brain injury. #3 perforated peptic ulcer: For which patient is on broad-spectrum antibiotics patient is status post laparotomy. #4 history of septic chart didn't this hospitalization secondary to perforated peptic ulcer and cholecystitis. #5 acute respiratory failure secondary to cardiology pulmonary arrest. #6 acute kidney injury: Probably secondary to acute purulent necrosis patient appears to have C Thania unable to stage at this time. 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 Plan: As mentioned above family has decided to proceed with comfort care, terminal wean. Patient is not a no code, no CPR, no re-intubation. Terminal weaning in progress. The impression and plan of care has been dictated as directed as a scribe. : I performed a H&P examination of this patient and discussed the same with the dictator. I agree with the dictator's note. Any additional findings/opinions/ etc. will be noted.
== END 2017-04-09 19:21 | disposition expired | DRG 853 ==
LOC: EC 15:58 → 6ICU 18:59 → 5MS5E 04-01 18:20 → 6ICU 04-07 15:53
PROVIDERS: ADMIT Surgery; ATTEND Surgery
PROC: 5A1955Z Respiratory Ventilation, Greater than 96 Consecutive Hours (ICD-10-PCS; 2017-03-16)
PROC: 0FT40ZZ Resection of Gallbladder, Open Approach (ICD-10-PCS; 2017-03-16)
PROC: 0BH17EZ Insertion of Endotracheal Airway into Trachea, Via Natural or Artificial Opening (ICD-10-PCS; 2017-03-16)
PROC: 0DQ70ZZ Repair Stomach, Pylorus, Open Approach (ICD-10-PCS; principal; 2017-03-16 20:00)
PROC: 3E0336Z Introduction of Nutritional Substance into Peripheral Vein, Percutaneous Approach (ICD-10-PCS; 2017-03-20)
PROC: 02H633Z Insertion of Infusion Device into Right Atrium, Percutaneous Approach (ICD-10-PCS; 2017-03-26)
PROC: 04HY32Z Insertion of Monitoring Device into Lower Artery, Percutaneous Approach (ICD-10-PCS; 2017-04-07)
DX: A41.9 Sepsis, unspecified organism (principal); I50.23 Acute on chronic systolic (congestive) heart failure; J96.00 Acute respiratory failure, unspecified whether with hypoxia or hypercapnia; N17.0 Acute kidney failure with tubular necrosis; R65.21 Severe sepsis with septic shock; K65.1 Peritoneal abscess; K25.5 Chronic or unspecified gastric ulcer with perforation; G93.1 Anoxic brain damage, not elsewhere classified; I47.2 Ventricular tachycardia; K81.2 Acute cholecystitis with chronic cholecystitis; E87.0 Hyperosmolality and hypernatremia; J44.0 Chronic obstructive pulmonary disease with (acute) lower respiratory infection; J98.11 Atelectasis; L03.90 Cellulitis, unspecified; E87.2 Acidosis; L89.152 Pressure ulcer of sacral region, stage 2; C44.91 Basal cell carcinoma of skin, unspecified; E86.0 Dehydration; E11.22 Type 2 diabetes mellitus with diabetic chronic kidney disease; E11.42 Type 2 diabetes mellitus with diabetic polyneuropathy; E11.51 Type 2 diabetes mellitus with diabetic peripheral angiopathy without gangrene; D63.1 Anemia in chronic kidney disease; E03.9 Hypothyroidism, unspecified; E11.319 Type 2 diabetes mellitus with unspecified diabetic retinopathy without macular edema; E87.5 Hyperkalemia; E87.6 Hypokalemia; F17.200 Nicotine dependence, unspecified, uncomplicated; G40.901 Epilepsy, unspecified, not intractable, with status epilepticus; H54.8 Legal blindness, as defined in USA; I46.9 Cardiac arrest, cause unspecified; K21.9 Gastro-esophageal reflux disease without esophagitis; K59.00 Constipation, unspecified; L89.302 Pressure ulcer of unspecified buttock, stage 2; N18.3 Chronic kidney disease, stage 3 (moderate); N20.0 Calculus of kidney; T50.2X5A Adverse effect of carbonic-anhydrase inhibitors, benzothiadiazides and other diuretics, initial encounter; E11.621 Type 2 diabetes mellitus with foot ulcer; L97.509 Non-pressure chronic ulcer of other part of unspecified foot with unspecified severity; R26.9 Unspecified abnormalities of gait and mobility; E66.9 Obesity, unspecified; Z87.442 Personal history of urinary calculi; Z79.4 Long term (current) use of insulin; Z79.899 Other long term (current) drug therapy; Z79.82 Long term (current) use of aspirin; Z86.14 Personal history of Methicillin resistant Staphylococcus aureus infection; Z89.511 Acquired absence of right leg below knee; Z89.422 Acquired absence of other left toe(s); Z22.322 Carrier or suspected carrier of Methicillin resistant Staphylococcus aureus; Z82.49 Family history of ischemic heart disease and other diseases of the circulatory system
CPT/HCPCS: 36415; 36569; 36600; 70450; 71010; 71020; 71250; 74000; 74020; 74176; 74230; 74240; 76937; 80048; 80053; 80202; 81001; 82040; 82330; 82550; 82553; 82803; 82805; 83036; 83605; 83735; 84100; 84132; 84443; 84478; 84484; 85025; 85027; 85610; 85730; 86850; 86900; 86901; 86920; 87040; 87070; 87077; 87086; 87186; 87205; 87324; 87338; 88304; 93005; 93306; 94002; 94003; 94640; 94667; 94668; 95816; 96361; 96374; 99291; 99292